=== PATIENT | female | born 1950 | race Caucasian/White ===

== ENCOUNTER → 2017-09-01 | Outpatient (CLI) | payer OTHER ==
[~2017-09-01] MED LIST: ADVIN25/60 INH; ALBUAER2 INH; CALC500C70 PO; CHOL20005 PO; PEDICHW50 PO; PROP10TA7 PO; SERT50TA PO; ZAFI1TAB10 PO
--- NOTE | 2017-09-02 05:22 | PAP/PSG TECHNICIAN REPORT ---
[facility] Frontend Engineer Polysomnogram Report Study name: None Report date: 09/02/2017 Study date: 09/01/2017 Referring Physician: SONA Salinas Name: ETHEL SEWELL Interpreting Physician: Hiren Abad M.D. Date of : 1950 Frontend Engineer: Vamshi Hopkins RPSGT. Sex: Female Age: 67 StudyType: PSG Weight: 136 lbs Height: 67 years, Height 5' 0" BMI: 26.56 Medications: CREON 3000, OXYGEN, ADVAIR DISKUS, BENTYL 10 MG, ACCOLATE 20 MG, VENTOLIN HFA 108 90 BASE, VITAMIN D Patient History PATIENT HAD A SLEEP STUDY DONE IN 2014 AND WAS POSITIVE FOR JARRED. SHE WAS PUT ON CPAP OF 7CWP AND HAS BEEN WEARING IT SINCE THEN. SHE RECENTLY LOST OVER 110LBS AND IS BEING TESTED TO SEE IF SHE STIL HAS JARRED. ES = 12 RM 7 Parameters Monitored NPSG: E1-M2, E2-M1, Fp1-M2, Fp2-M1, F3-M2, F4-M2, F4-M1, C3-M2, C4-M2, C4-M1, O1-M2, O2-M2, O2-M1, T3-M2, T4-M1, P3-M2, P4-M1, CHIN1, CHIN2, HR, EKG, Legs, PFLOW, SNOR, FLOW, CFLOW, Tidal Volume, THOR, ABDO, SpO2, PLTH, CPRESS, ETCO2 Wave, ETCO2, pH Sleep Architecture Sleep Stages Time at Lights Off 9:18:07 PM STAGES Time (min.) TST (%) Time at Lights On 5:01:07 AM Wake 39.0 -- Total Recording Time (TRT) 464.00 min. N1 20.0 5 Total Sleep Period (TSP) 456.0 min. N2 263.5 62 Total Sleep Time (TST) 424.0min. N3 70.0 17 Awake Time 39.0 min. REM 70.5 17 Wake after Sleep Onset 32.0 min. Sleep Efficiency (SE) 92 % Sleep Onset Latency (NUPUR) 7.0 min. Number of Stage 1 Shifts None Awakenings 14 Stage Changes 66 Number of REM periods 6 REM 70.5 17 REM Latency 52.0 min. NREM 353.5 83 Body Position Analysis Supine Right Left Side Prone Vertical Total Sleep Time (min.) 291.3 52.5 115.5 168.02 0.0 0.0 Total Sleep Time (%) 60% 12% 27% 40 0% N/A% Total Sleep Time REM (min.) 32.0 11.0 27.5 None 0.0 0.0 Total Sleep Time NREM (min.) 224.0 41.5 88.0 None 0.0 0.0 Intermittent Wake (min.) 35.3 1.0 2.7 None 0.0 0.0 Total Sleep Period (%) 62% None None None None None Arousals Myoclonus (PLM) * Events Count Index Events Count Index Spontaneous 38 5 Events Awake (PLMW) 13 20.0 Respiratory 3 0.4 Events Asleep w/ Arousal (PLMA) 1 0.1 PLM 1 0 Events Asleep w/o Arousal (PLMS) 15 2.1 Snoring 0 0 Total Asleep 16 2.3 Total 42 6 Total 29 4 Respiratory Analysis * CA OA MA CH H RERA Total Count 0 0 0 0 27 1 27 Index 0.0 0.0 0.0 0 3.8 0 4.0 Mean Duration 0.0 0.0 0.0 0.00 28.8 19.8 28.5 Longest Duration 0.0 0.0 0.0 0.00 0.0 19.8 57.4 Respiratory Event Summary Total Supine ~Supine Right Left Prone REM NREM Apneas Count 0 0 0 0 0 N/A 0 0 Index 0.0 0 0 0.0 0.0 N/A 0 0 Hypopneas (4% Desat) Count 27 16 11 0 11 N/A 25 2 Index 3.8 3.8 4 0.0 5.7 N/A 21.3 0.3 Apneas & All Hypopneas Count 27 16 11 0 11 N/A 25 2 Index 3.8 4 4 0 6 N/A 21.3 0.3 Respiratory Events (Aerial Advertiser+All Hyp+RERA) Count 27 17 11 0 11 N/A 25 2 Index 4.0 4 4 0.0 5.7 N/A 22.1 0.3 Respiratory Related Arousal Count 3 17 0 0 0 N/A 2 1 Index 0.4 1 0 0 0 N/A 2 0 Snoring Analysis Supine Right Left Prone REM NREM Total Snore duration 1.9 min Snores count 116 1 2 N/A 4 115 119 Snore mean duration 1.0 Sec Snores index 27 1 1 N/A 3.4 19.5 16.8 TST with snoring (%) 0.4% Desaturation Event Summary: Minimum %SpO2 Event Count Mean/Min/Max Duration(sec.) Desaturation Index % Time In Bed > 90 30 44.9 / 10.0 / 84.0 4.1 95.0 86 - 90 1 34.3 / 34.3 / 34.3 2.6 5.0 81 - 85 0 N/A 0.0 0.0 76 - 80 0 N/A 0.0 0.1 71 - 75 0 N/A 0.0 0.0 66 - 70 0 N/A 0.0 0.0 61 - 65 0 N/A 0.0 0.0 56 - 60 0 N/A 0.0 0.0 51 - 55 0 N/A 0.0 0.0 < 50 0 N/A 0.0 0.0 Total REM NREM Awake <50% 0.0 min. 0.0 min. 0.0 min. 0.0 min. 51 - 60% 0.0 min. 0.0 min. 0.0 min. 0.0 min. 61 - 70% 0.0 min. 0.0 min. 0.0 min. 0.0 min. 71 - 80% 0.3 min. 0.0 min. 0.0 min. 0.3 min. 81 - 90% 22.7 min. 20.4 min. 1.7 min. 0.6 min. 91 - 100% 433.7 min. 50.1 min. 351.8 min. 31.9 min. Average 93 92 93 95 Minimum SpO2 80 86 88 80 Desaturation Event Index 3.9 20.4 1.0 1.5 # Desat. Events below 89% 8 6 2 0 Time(%) with Saturation below 89% 1.0 0.9 0.0 0.1 Time(min.) with Saturation below 89% 4.6 4.2 0.0 0.3 Time (mins) REM (mins) NREM (mins) % of TST SpO2 Below 90% 26 24 N2 2.6 SpO2 Below 88% 6 0 0 0 Heart Rate Analysis Min (bpm) Max (bpm) Average (bpm) Awake 47 88 56 NREM 47 81 56 REM 49 74 57 Overall 47 81 56 Supplemental O2 Values Minimum O2 level: None Value Start Time End Time Frontend Engineer Comments Mrs. Sewell slept in the right, left amd supine positions. PAC's noted. Irregular EKG noted at times. Leg movements noted. No bruxism noted. Snoring was noted and scored as a 1 on a scale of 1 through 5. (0=no snoring, 5=snoring loud enough to be heard through a closed door or down the [address] way) Mrs. Sewell awoke to use the restroom 1 time during the night. Mrs. Sewell stated I did not sleep as well as I do when I am in my own bed. The final report will be interpreted and signed by a sleep physician. The completed physician report will then be placed in the patient medical record. Therapy (cm H2O) 0 TIB (min.) 463.0 TST (min.) 424.0 Sleep Onset (min.) 7.0 REM Onset From Sleep (min.) 52.0 Sleep Efficiency % 92 Wakefulness (%) 8 Wakefulness (min.) 39.0 NREM 1 (%) 5 NREM 1 (min.) 20.0 NREM 2 (%) 62 NREM 2 (min.) 263.5 NREM 3 (%) 17 NREM 3 (min.) 70.0 REM (%) 17 REM (min.) 70.5 # Arousals 42 Arousal Index 6 # Snore 119 Snore Index 16.8 AHI 3.8 AHI Supine 4 AHI Non-Supine 4 NREM AHI 0.3 REM AHI 21.3 RDI 4.0 # Obstructive Apnea 0 # Central Apnea 0 # Mixed Apnea 0 # Hypopneas 27 RERAs 1 Total Respiratory Events 30 Time Below SpO2 89% (min.) 4.2 Mean NREM SpO2 (%) 93 Mean REM SpO2 (%) 92 Mean Sleep SpO2 (%) 92 Min NREM SpO2 (%) 88 Min REM SpO2 (%) 86 Position Supine (min.) 291.3 Position Non-supine (min.) 168.0 LM Index Sleep 2.3 LM Index NREM 1.9 LM Index REM 4.3 Mean Heart Rate (bpm) 56 Min Heart Rate (bpm) 47
--- NOTE | 2017-09-02 16:34 | POLYSOMNOGRAPH REPORT ---
CLINICAL DATA: 67-year-old female with a BMI of 25.56 referred by SONA Matamoros for reevaluation of sleep apnea. She had sleep apnea diagnosed in 2015 and was put on CPAP. She had gastric bypass surgery and lost over 110 pounds. Her [place] sleepiness score is 12/24. SLEEP ARCHITECTURE: Total sleep period was 456 minutes. Total sleep time was 424 minutes divided between 353.5 minutes of non-REM sleep and 70.5 minutes of REM sleep. Sleep onset latency was 7 minutes. REM latency was 52 minutes. Sleep efficiency was 92%. Wake after sleep onset was 32 minutes. Sleep consisted of stage N1 5%, stage N2 62%, stage N3 17%, and REM 17%. AROUSAL DATA: 42 arousals were recorded for an index of 6 per hour. PLM DATA: 16 limb movements during sleep were noted for an index of 2.3 per hour with arousal index of 0.1 per hour. RESPIRATORY DATA: There was no evidence of clinically significant sleep apnea seen. The AHI was 3.8. There were 27 hypopneic episodes. The mean duration of hypopnea was 28.8 seconds. OXIMETRY DATA: Very transient nocturnal hypoxemia was seen. Oxygen vish was 86% during REM. The mean saturation was 93%. Time below 88% was 6 minutes. EKG: Heart rates ranged from 47-81 beats per minute. PACs were noted. CNC MAINTENANCE TECHNICIAN'S COMMENTS: The patient slept in the right, left, and supine positions. Snoring was mild rated 1 on a scale of 1-5. IMPRESSION: No evidence of clinically significant sleep apnea/hypopnea or sustained nocturnal hypoxemia. RECOMMENDATIONS: The patient should continue with weight loss and good sleep hygiene. There is nothing to suggest that CPAP is needed at this time. [facility]
== END | disposition home or self-care (01) ==
LOC: C.NEUR 20:00
PROVIDERS: ATTEND Nurse Practitioner Family
DX: G47.33 Obstructive sleep apnea (adult) (pediatric) (principal); G47.10 Hypersomnia, unspecified; G47.34 Idiopathic sleep related nonobstructive alveolar hypoventilation

== ENCOUNTER 2020-04-21 08:52 | Inpatient (IN) ==
--- NOTE | 2020-04-21 09:22 | History & Physical Report ---
Date of Service April 21, 2020 Assessment & Plan (1) PAF (paroxysmal atrial fibrillation): (2) Acute on chronic diastolic (congestive) heart failure: 69-year-old female admitted for titration of sotalol and external direct-current cardioversion. Increase sotalol to 120 mg twice daily. She will receive 4 doses with plan for cardioversion 04/23/2020. INR has been therapeutic. Repeat baseline lab studies including BMP, Mg, CBC, and INR. Daily ECG. Continue telemetry monitoring during hospitalization. History of Present Illness Chief Complaint: Fatigue, dyspnea on exertion, paroxysmal atrial fibrillation Primary Care Provider: Dustin Maciel MD 69-year-old female recently evaluated in the cardiology clinic 04/14/2020 regarding recurrent atrial fibrillation recorded on pacemaker interrogation. 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 Patient reverted to atrial fibrillation on April 01. Worsening dyspnea on exertion, fatigue, and progressive lower extremity edema. Patient instructed to take 80 mg of Lasix for 1 day during recent office visit due to worsening edema. Reports feeling played out while at work. No lightheadedness, dizziness, syncope, or near syncope. Denies signs/symptoms of GI/ blood loss. No focal weakness, headaches, slurred speech, dysphagia, visual changes, paresthesias, or gait instability. Edema unchanged today. Denies orthopnea or paroxysmal nocturnal dyspnea. Offers no other concerns/complaints this time. Allergies Allergy/AdvReac Type Severity Reaction Status Date / Time oxycodone AdvReac Intermediate GI SYMPTOMS Verified 07/20/18 11:48 Home Medications Home Medications Medication Instructions Recorded Confirmed Type Creon 2 tab PO TID 07/20/18 10/23/18 History albuterol sulfate [Ventolin HFA] 1 - 2 puff INHALATION QID PRN 07/20/18 10/23/18 History cholecalciferol (vitamin D3) 2,000 unit PO DAILY 07/20/18 10/23/18 History [Vitamin D3] fluticasone propion-salmeterol 1 inh INHALATION BID 07/20/18 10/23/18 History [Advair Diskus] pedi multivit no.7-folic acid 1 tab PO DAILY 07/20/18 10/23/18 History [Flintstones Tab Chew] sertraline [Zoloft] 50 mg PO DAILY 07/20/18 10/23/18 History warfarin 2.5 mg PO DAILY 07/20/18 10/23/18 History furosemide 20 mg PO 3XWK 10/23/18 10/23/18 History sotalol 80 mg PO BID #0 tab 10/29/18 Rx Past Med/Surg History Medical History A-fib Asthma (Chronic) Bronchitis (Acute) Chest pain (Acute) COPD (chronic obstructive pulmonary disease) DJD (degenerative joint disease) (Chronic) Dyspnea (Acute) GERD (gastroesophageal reflux disease) Hyperlipidemia (Chronic) Pacemaker Tachy-corin syndrome s/p pacemaker insertion Tremor Surgical History H/O colonoscopy H/O gastric bypass H/O hernia repair H/O ventral hernia repair History of cholecystectomy S/P appendectomy S/P small bowel resection Family History Other Cancer Hypertension Lung disease Social History Preferred Language: Finnish Communication Ability: Effective Nurse Coordinator Required: No Beliefs That Will Affect Care: None Current Living Situation: Spouse current occupational status: employed Other Information That Helps Us Care for You: No Feels Safe at Home: Yes Safety Concerns: Feels Safe At This Time Smoking Status: Never smoker Second Hand Exposure: No ; Hx Alcohol Use: No Hx Substance Use: No Review of Systems Review of Systems: All systems reviewed & are unremarkable except as noted in HPI & below Physical Exam Physical Exam: General: NAD, AAO x3, well nourished. HEENT: Poor dentition. Normocephalic. Atraumatic. Conjunctiva pink, no scleral icterus. No carotid bruits, the carotid upstrokes are brisk. No JVD. No HJR Heart: Irregular rhythm, normal S-1 and S-2. No murmurs or rubs appreciated. PMI is not displaced. No RV heave. Lungs: Clear bilateral without rales , rhonchi, or wheeze. Abdomen: Normal bowel sounds. Soft. Nontender. No masses or organomegaly. No abdominal bruits. Extremities: 2+ bilateral pedal and ankle edema. +B/L varicose veins. Pulses: radial=2/4, Dorsalis pedis =2/4, posterior tibial=2/4. Neuro: No focal deficits.
--- OUTSIDE RECORDS SUMMARY | 2020-04-21 10:04 | External Medical Summary | Continuity of Care Document ---
:1950 Author Name Manuel Bello Address Unavailable Unavailable , Care Team Providers Name Role Phone John Abad M.D. Unavailable [email or web address] Tonny Maciel Unavailable Unavailable Problems Active medical history not documented Allergies and Adverse Reactions Allergy history not documented Medications Medications not documented Procedures Procedures not documented Immunizations Immunizations not documented Plan of Treatment Planned Observations Planned Goals not documented Results No Known Results Results not documented
[2020-04-21 11:00] LABS: Basophils # (auto) 0.03 K/uL (0-0.2); Basophils % (auto) 0.3 %; Eosinophils # (auto) 0.25 K/uL (0-0.5); Eosinophils % (auto) 2.6 %; Hematocrit (blood only) 29.5 % (37-47); Hemoglobin 9.4 g/dL (12.0-16.0); Immature Granulocytes # (auto) 0.02 K/uL (0.00-0.02); Immature Granulocytes % (auto) 0.2 %; Lymphocytes # (auto) 1.69 K/uL (1.2-3.4); Lymphocytes % (auto) 17.6 %; Mean Corpuscular Hemoglobin 29.4 pg (25-34); Mean Corpuscular Hgb Conc 31.9 g/dL (32-36); Mean Corpuscular Volume 92.2 fL (80-100); Mean Platelet Volume 9.8 fL (7.4-10.4); Monocytes # (auto) 0.54 K/uL (0.11-0.59); Monocytes % (auto) 5.6 %; Neutrophils # (auto) 7.07 K/uL (1.4-6.5); Neutrophils % (auto) 73.7 %; Platelet Count 296 K/uL (130-400); RDW Coefficient of Variation 16.4 % (11.5-14.5); RDW Standard Deviation 54.5 fL (36.4-46.3)
[2020-04-21] MEDS: SOTALOL HCL 80 MG TAB PO SCH ×2 (11:00→21:42)
[2020-04-21 11:26] LABS: INR 5.5 (0.9-1.1); Prothrombin Time 53.2 Seconds (9.0-12.0)
[2020-04-21 11:28] LABS: Albumin Level 2.7 gm/dl (3.4-5.0); BUN Creatinine Ratio 32.8 (10-20); Calcium 7.7 mg/dl (8.5-10.1); Creatinine Clr Calc Pharmacy 69.6 ml/min; Est GFR (African American) 106.5; Est GFR (Non-African American) 91.9; Potassium 4.1 mmol/L (3.5-5.1)
[2020-04-21] MEDS ORDERED: ALBUTEROL HFA 8 GM INHALER INH PRN (11:29)
[2020-04-21 11:31] LABS: Albumin Globulin Ratio 0.9 (0.9-2); Bilirubin,Total 0.8 mg/dl (0.2-1); Total Protein 5.7 gm/dl (6.4-8.2)
--- NOTE | 2020-04-21 12:52 | Ultrasound Report ---
BILATERAL LOWER EXTREMITY VENOUS DOPPLER CLINICAL HISTORY: asymmetric edema, L>R COMPARISON STUDY: Right lower extremity venous Doppler ultrasound March 18, 2015. TECHNIQUE: Sonography of the deep venous system of the bilateral lower extremities was performed. Co mpression and augmentation were evaluated. FINDINGS: The bilateral common femoral, superficial femoral and popliteal veins were compressible. A ugmentation was normal. Flow was shown within the deep calf vessels. IMPRESSION: No evidence of deep venous thrombus within the bilateral lower extremities. ACT 112: Negative or not required by law. Electronically signed by: Salomon Amezcua M.D. 04/21/2020 12:51 PM
--- NOTE | 2020-04-21 13:30 | XRay Report ---
XR chest 1V portable CLINICAL HISTORY: CHF dyspnea COMPARISON STUDY: 10/25/2018 FINDINGS: Lungs are clear. Mild cardiomegaly. Permanent bipolar cardiac pacer. These are in good posi tion. IMPRESSION: No acute process. ACT 112: Negative or not required by law. The above report was generated using voice recognition software. It may contain grammatical, syntax or spelling errors. Electronically signed by: Saad Maldonado M.D. 04/21/2020 1:28 PM
[2020-04-21] MEDS ORDERED: WARFARIN SOD 2.5 MG TAB PO SCH (16:00)
--- NOTE | 2020-04-22 06:22 | Electrocardiogram Report ---
Test Reason : Blood Pressure : / mmHG Vent. Rate : 081 BPM Atrial Rate : 061 BPM P-R Int : 000 ms QRS Dur : 090 ms QT Int : 378 ms P-R-T Axes : 000 -30 -04 degrees QTc Int : 439 ms Atrial fibrillation Left axis deviation Low voltage QRS Septal infarct (cited on or before 29-OCT-2018) Nonspecific T wave abnormality Abnormal ECG When compared with ECG of 29-OCT-2018 06:55, Atrial fibrillation has replaced Electronic atrial pacemaker Confirmed by Seven Houser ([id number]) on 04/22/2020 6:22:15 AM Referred By: Tejas Haskins Confirmed By:Seven Houser
[2020-04-22 06:31] LABS: INR 4.4 (0.9-1.1)
--- NOTE | 2020-04-22 06:35 | Electrocardiogram Report ---
Test Reason : Blood Pressure : / mmHG Vent. Rate : 081 BPM Atrial Rate : 091 BPM P-R Int : 000 ms QRS Dur : 092 ms QT Int : 398 ms P-R-T Axes : 000 -37 -15 degrees QTc Int : 462 ms Atrial fibrillation Left axis deviation Low voltage QRS Septal infarct Nonspecific T wave abnormality Abnormal ECG When compared with ECG of 21-APR-2020 10:39, No significant change Confirmed by Seven Houser ([id number]) on 04/22/2020 6:35:38 AM Referred By: Tejas Haskins Confirmed By:Seven Houser
[2020-04-22] MEDS: SOTALOL HCL 80 MG TAB PO SCH ×2 (08:37→21:09)
[2020-04-22] MEDS: FERROUS FUMARATE/ASCORBIC ACID 65 MG CAPCR PO SCH (08:37)
[2020-04-22] MEDS: SERTRALINE HCL 50 MG TABLET PO SCH (08:38)
[2020-04-22] MEDS: MAGNESIUM OXIDE 400 MG TAB PO SCH (08:38)
[2020-04-22] MEDS: FLUTICASONE/VILANTEROL 100/25MCG 14 PUFFS/INHALER INH SCH (08:41)
--- NOTE | 2020-04-22 11:23 | Cardiology Progress Note ---
Date of Service April 22, 2020 Assessment & Plan (1) PAF (paroxysmal atrial fibrillation): (2) Acute on chronic diastolic (congestive) heart failure: Continue sotalol loading, 120 mg twice daily. Repeat ECG in a.m. INR remains supratherapeutic, 4.4 today. Hold Coumadin with repeat INR in a.m. Proceed with external direct-current cardioversion in a.m. [employer] electro mechanical solar technician will be present for pacemaker interrogation post cardioversion. Subjective Patient seen and examined the bedside. Telemetry demonstrates rate controlled atrial fibrillation with occasional demand ventricular pacing. Lower extremity edema has improved. No orthopnea or paroxysmal nocturnal dyspnea. Denies palpitations, lightheadedness, dizziness, syncope, or near syncope. Tolerating diet and medications. Repeat ECG demonstrates normal QT interval. Review of Systems Review of Systems: All systems reviewed & are unremarkable except as noted in HPI & below Physical Exam Constitutional: well developed and well nourished; no acute distress Respiratory: normal respiratory effort, lungs clear to auscultation Auscultation: no crackles, no rales, no rhonchi and no wheezes Cardiovascular: Rate/Rhythm: + irregularly irregular Heart Sounds: normal S1 and normal S2; no murmur Vessels: no JVD Extremities: + edema (Trace to mild bilateral pedal edema) Gastrointestinal (Abdomen): Inspection/Auscultation: abdomen normal to inspection and normal bowel sounds; abdomen not distended Percussion/Palpation: abdomen soft; abdomen nontender, no guarding and abdomen not rigid Musculoskeletal: Extremities: no cyanosis and no clubbing Skin: no rashes, warm and dry Neurologic: CN's II-XI intact bilaterally and moves all extremities; no focal motor deficits Speech / Cognition: normal speech Motor/Sensory: no tremor Psychiatric: A+Ox3, euthymic affect Results & Data Vital Signs (Past 12 Hours) Vital Signs Temp Pulse Resp BP Pulse Ox 04/22/20 07:38 36.8 C 75 20 118/80 100 04/22/20 03:01 36.5 C 95 H 18 115/68 98 04/21/20 23:20 36.6 C 82 18 103/65 98
--- NOTE | 2020-04-22 12:19 | Anesthesiology Consultation ---
Date of Service April 22, 2020 Assessment & Plan (1) Encounter for pre-operative examination: Chart Review Chart Review: dividend deposit entry clerk initiated History Surgery Operation Date: 04/23/20 07:30 Proposed Procedures p Cardioversion Steam Crane Operator w/Carlos - Tejas Haskins DO Height/Weight Height: 5 ft Weight: 60.8 kg Allergies Allergy/AdvReac Type Severity Reaction Status Date / Time oxycodone AdvReac Intermediate GI SYMPTOMS Verified 07/20/18 11:48 Medications Home Medications Medication Instructions Recorded Confirmed Last Taken Creon 2 tab PO TID 07/20/18 10/23/18 Unknown albuterol sulfate [Ventolin HFA] 1 - 2 puff INHALATION QID PRN 07/20/18 10/23/18 Unknown cholecalciferol (vitamin D3) 2,000 unit PO DAILY 07/20/18 10/23/18 Unknown [Vitamin D3] fluticasone propion-salmeterol 1 inh INHALATION BID 07/20/18 10/23/18 Unknown [Advair Diskus] pedi multivit no.7-folic acid 1 tab PO DAILY 07/20/18 10/23/18 Unknown [Flintstones Tab Chew] sertraline [Zoloft] 50 mg PO DAILY 07/20/18 10/23/18 Unknown warfarin 2.5 mg PO DAILY 07/20/18 10/23/18 Unknown furosemide 20 mg PO 3XWK 10/23/18 10/23/18 Unknown sotalol 80 mg PO BID #0 tab 10/29/18 Unknown Active Medications Generic Name Dose Route Start Last Admin Trade Name Freq PRN Reason Stop Dose Admin Docusate Sodium/Ferrous Fumarate 65 mg 04/22/20 09:00 04/22/20 08:37 Gwen-Sequels PO 05/22/20 08:59 65 mg QAM ISHAN Administration Fluticasone/Vilanterol 1 puffs 04/22/20 09:00 04/22/20 08:41 Breo Ellipta 100/25 Mcg Inh INH 05/22/20 08:59 1 puffs DAILY ISHAN Administration Magnesium Oxide 400 mg 04/22/20 09:00 04/22/20 08:38 Mag-Ox PO 05/22/20 08:59 400 mg QAM ISHAN Administration Sertraline HCl 50 mg 04/22/20 09:00 04/22/20 08:38 Zoloft PO 05/22/20 08:59 50 mg QAM ISHAN Administration Sotalol HCl 120 mg 04/21/20 10:30 04/22/20 08:37 Betapace PO 05/21/20 10:29 120 mg BID SIHAN Administration Past Medical History Medical History A-fib Asthma (Chronic) Bronchitis (Acute) Chest pain (Acute) COPD (chronic obstructive pulmonary disease) DJD (degenerative joint disease) (Chronic) Dyspnea (Acute) GERD (gastroesophageal reflux disease) Hyperlipidemia (Chronic) Pacemaker Tachy-corin syndrome s/p pacemaker insertion Tremor Past Family History Family History Other Cancer Hypertension Lung disease Past Surgical History Surgical History H/O colonoscopy H/O gastric bypass H/O hernia repair H/O ventral hernia repair History of cholecystectomy S/P appendectomy S/P small bowel resection Social History Smoking Status: Never smoker Hx Alcohol Use: No Hx Substance Use: No Physical Exam Vital Signs Last Vital Signs Temp 98.4 F 04/22/20 11:30 Pulse 76 04/22/20 11:30 Resp 18 04/22/20 11:30 BP 117/73 04/22/20 11:30 Pulse Ox 97 04/22/20 11:30 Testing Laboratory Results 04/21/20 10:47 04/21/20 10:47 PT 43.0 Seconds (9.0-12.0) H 04/22/20 05:40 INR 4.4 (0.9-1.1) H 04/22/20 05:40 Electrocardiogram Date: 04/22/20 Atrial fibrillation with occasional ventricular-paced complexes, 83 bpm Left axis deviation Septal infarct , age undetermined Abnormal ECG When compared with ECG of 21-APR-2020 14:32, Electronic ventricular pacemaker has replaced Atrial fibrillation Chest X-Ray Date: 04/21/20 Findings: + NAD Echocardiogram Date: 10/26/18 LV systolic function is normal LA/RA size is normal AV is normal in structure and function Trace MR
--- NOTE | 2020-04-23 06:40 | Electrocardiogram Report ---
Test Reason : Blood Pressure : / mmHG Vent. Rate : 083 BPM Atrial Rate : 000 BPM P-R Int : 000 ms QRS Dur : 090 ms QT Int : 384 ms P-R-T Axes : 000 -33 -28 degrees QTc Int : 451 ms Atrial fibrillation with occasional ventricular-paced complexes Left axis deviation Possible Septal infarct , age undetermined Nonspecific T wave abnormality Abnormal ECG When compared with ECG of 21-APR-2020 14:32, Ventricular pacing is now intermittently present Confirmed by Seven Houser ([id number]) on 04/23/2020 6:40:21 AM Referred By: Tejas Haskins Confirmed By:Seven Houser
[2020-04-23 06:42] LABS: INR 2.1 (0.9-1.1); Prothrombin Time 21.4 Seconds (9.0-12.0)
[2020-04-23] MEDS ORDERED: PROPOFOL IV EMULSION 10 MG/ML 20 ML VIAL IV ONE (07:19)
[2020-04-23] MEDS: FERROUS FUMARATE/ASCORBIC ACID 65 MG CAPCR PO SCH (08:26)
[2020-04-23] MEDS: SERTRALINE HCL 50 MG TABLET PO SCH (08:26)
[2020-04-23] MEDS: FLUTICASONE/VILANTEROL 100/25MCG 14 PUFFS/INHALER INH SCH (08:26)
[2020-04-23] MEDS: SOTALOL HCL 80 MG TAB PO SCH (08:26)
--- NOTE | 2020-04-23 08:26 | Anesthesiology Progress Note ---
Date of Service April 23, 2020 Anesthesia Post Procedure Vital Signs Vital Signs: Temp Pulse Pulse Resp BP BP Pulse Ox 04/23/20 08:05 78 16 105/71 98 04/23/20 07:55 80 16 103/67 97 04/23/20 07:40 64 16 106/63 99 04/23/20 07:06 98.2 F 73 16 104/67 97 04/23/20 03:57 97.9 F 80 18 113/60 95 04/23/20 00:26 77 04/22/20 23:36 98.2 F 75 20 104/69 95 04/22/20 19:50 98.1 F 66 12 94/56 L 95 04/22/20 15:19 98.4 F 78 12 89/61 L 96 04/22/20 11:30 98.4 F 76 18 117/73 97 Transfer of Care Handoff Completed per policy Notes Mental Status: alert / awake / arousable and participated in evaluation Patient Amnestic to Procedure: Yes Nausea / Vomiting: adequately controlled Pain: adequately controlled Airway Patency, RR, SpO2: stable & adequate BP & HR: stable & adequate Hydration State: stable & adequate Anesthetic Complications: no major complications apparent and Pt Satisfied with anesthetic care
[2020-04-23] MEDS ORDERED: WARFARIN SOD 5 MG TAB PO ONE (08:37)
--- NOTE | 2020-04-23 10:13 | Cardiology Progress Note ---
Date of Service April 23, 2020 Assessment & Plan (1) PAF (paroxysmal atrial fibrillation): (2) Acute on chronic diastolic (congestive) heart failure: Continue sotalol 120 mg twice daily. Repeat ECG at 10:30 AM If QTc remains within normal range, plan discharge this afternoon. Restart Coumadin, 5 mg x 1 now then resume previous schedule. Anticoagulation clinic follow-up in 1 week. Pacemaker reprogrammed. Antitachycardia pacing therapies activated. Prefer- pacing mode activated to maintain heart rate via atrial pacing above her baseline sinus rate. Subjective Patient seen and examined at the bedside. External direct-current cardioversion performed this a.m. without complication. She remains in sinus rhythm and atrial paced on telemetry. Denies chest pain or shortness of breath. Lower extremity edema markedly improved with bed rest. Tolerating current medications. No signs/symptoms of GI/ blood loss. INR 2.1 this morning. Review of Systems Review of Systems: All systems reviewed & are unremarkable except as noted in HPI & below Physical Exam Constitutional: well developed and well nourished; no acute distress Respiratory: normal respiratory effort, lungs clear to auscultation Auscultation: no crackles, no rales, no rhonchi and no wheezes Cardiovascular: Rate/Rhythm: regular rhythm Heart Sounds: normal S1 and normal S2; no gallop, no murmur and no cardiac rub Vessels: no JVD Extremities: + edema (Trace bilateral pedal edema) Gastrointestinal (Abdomen): Inspection/Auscultation: abdomen normal to inspection and normal bowel sounds; abdomen not distended Percussion/Palpation: abdomen soft; abdomen nontender, no guarding and abdomen not rigid Musculoskeletal: Extremities: no cyanosis and no clubbing Skin: no rashes, warm and dry Neurologic: CN's II-XI intact bilaterally and moves all extremities; no focal motor deficits Speech / Cognition: normal speech Motor/Sensory: no tremor Psychiatric: A+Ox3, euthymic affect Results & Data Vital Signs (Past 12 Hours) Vital Signs Temp Pulse Pulse Resp BP BP Pulse Ox 04/23/20 08:29 36.8 C 65 18 98/64 L 95 04/23/20 08:05 78 16 105/71 98 04/23/20 07:55 80 16 103/67 97 04/23/20 07:40 64 16 106/63 99 04/23/20 07:06 36.8 C 73 16 104/67 97 04/23/20 03:57 36.6 C 80 18 113/60 95 04/23/20 00:26 77 04/22/20 23:36 36.8 C 75 20 104/69 95
[2020-04-23] MEDS: MAGNESIUM OXIDE 400 MG TAB PO SCH (10:53)
--- NOTE | 2020-04-23 11:55 | Cardioversion ---
Date of Service April 23, 2020 Electrical Cardioversion Rpt Electrical Cardioversion Report Procedure: External direct-current cardioversion. Indication: Paroxysmal atrial fibrillation. Complications: None. Sedation: Conscious sedation provided by the anesthesia service. Please see se langley report. Procedural summary: Patient was brought to the cardiac catheterization holding area in a fasting state. Atrial fibrillation confirmed via pacemaker interrogation. External defibrillator pads were placed in anterior and posterior position. Conscious sedation provided by the anesthesia service with propofol. The defibrillator was synced to the QRS complex. When adequate sedation achieved, the defibrillator was charged to 200 J. A single 200 J shock was delivered. Patient successfully converted from atrial fibrillation to sinus rhythm and atrial pacing. No focal neurologic deficits post procedure. Pacemaker programmed to "preferred pacing" setting and antitachycardia pacing settings activated. Conclusion: Successful external direct-current cardioversion from atrial f ibrillation to sinus rhythm. No complications. Recommendations: Continue sotalol 120 mg twice daily. Continue long-term anticoagulation with Coumadin for goal INR of 2.0-3.0. Pacemaker interrogations every 3 months via the [facility] heart rhythm device clinic.
--- NOTE | 2020-04-24 05:42 | Electrocardiogram Report ---
Test Reason : Blood Pressure : / mmHG Vent. Rate : 073 BPM Atrial Rate : 072 BPM P-R Int : 260 ms QRS Dur : 094 ms QT Int : 412 ms P-R-T Axes : 000 -38 -12 degrees QTc Int : 453 ms Atrial-paced rhythm with prolonged AV conduction Left axis deviation Nonspecific T wave abnormality Cannot rule out Septal infarct Abnormal ECG When compared with ECG of 22-APR-2020 09:27, Atrial pacing has replaced atrial fibrillation Confirmed by Seven Houser ([id number]) on 04/24/2020 5:42:04 AM Referred By: Tejas Haskins Confirmed By:Seven Houser
--- NOTE | 2020-04-24 05:58 | Electrocardiogram Report ---
Test Reason : Blood Pressure : / mmHG Vent. Rate : 075 BPM Atrial Rate : 075 BPM P-R Int : 270 ms QRS Dur : 094 ms QT Int : 418 ms P-R-T Axes : 000 -29 -25 degrees QTc Int : 466 ms Atrial-paced rhythm with prolonged AV conduction T wave abnormality, consider anterior ischemia Abnormal ECG When compared with ECG of 23-APR-2020 07:46, T wave inversion more evident in Anterior leads Confirmed by Seven Houser ([id number]) on 04/24/2020 5:57:34 AM Referred By: Tejas Haskins Confirmed By:Seven Houser
[2020-04-24] MEDS ORDERED: FERROUS FUMARATE/ASCORBIC ACID 65 MG CAPCR PO SCH (09:00)
[2020-04-24] MEDS ORDERED: FUROSEMIDE 20 MG TAB PO SCH (09:00)
[2020-04-24] MEDS ORDERED: WARFARIN SOD 2.5 MG TAB PO SCH (16:00)
--- NOTE | 2020-05-06 16:55 | Discharge Summary ---
"Date of Service May 06, 2020 Admission HPI Per Admitting Provider 69-year-old female recently evaluated in the cardiology clinic 04/14/2020 regarding recurrent atrial fibrillation recorded on pacemaker interrogation. 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 Patient reverted to atrial fibrillation on April 01. Worsening dyspnea on exertion, fatigue, and progressive lower extremity edema. Patient instructed to take 80 mg of Lasix for 1 day during recent office visit due to worsening edema. Reports feeling played out while at work. No lightheadedness, dizziness, syncope, or near syncope. Denies signs/symptoms of GI/ blood loss. No focal weakness, headaches, slurred speech, dysphagia, visual changes, paresthesias, or gait instability. Edema unchanged today. Denies orthopnea or paroxysmal nocturnal dyspnea. Offers no other concerns/complaints this time. Principal Diagnosis atrial fibrillation Discharge Exam Constitutional well developed and well nourished; no acute distress Respiratory normal respiratory effort, lungs clear to auscultation Auscultation: no crackles, no rales, no rhonchi and no wheezes Cardiovascular Rate/Rhythm: regular rhythm Heart Sounds: normal S1 and normal S2; no gallop, no murmur and no cardiac rub Vessels: no JVD Extremities: + edema (Trace bilateral pedal edema) Gastrointestinal (Abdomen) Inspection/Auscultation: abdomen normal to inspection and normal bowel sounds; abdomen not distended Percussion/Palpation: abdomen soft; abdomen nontender, no guarding and abdomen not rigid Musculoskeletal Extremities: no cyanosis and no clubbing Skin no rashes, warm and dry Neurologic CN's II-XI intact bilaterally and moves all extremities; no focal motor deficits Speech / Cognition: normal speech Motor/Sensory: no tremor Psychiatric A+Ox3, euthymic affect Discharge Data Allergies Allergy/AdvReac Type Severity Reaction Status Date / Time oxycodone AdvReac Intermediate GI SYMPTOMS Verified 07/20/18 11:48 Consultations 04/22/20 08:10 Consult Anesthesiology Routine Procedures Performed Operation Date: 04/23/20 07:30 Actual Procedures p Cardioversion - Tejas Haskins DO Ordered Studies 04/21/20 10:35 US venous doppler LE BI Routine Hospital Course (1) PAF (paroxysmal atrial fibrillation): (2) Acute on chronic diastolic (congestive) heart failure: Continue sotalol 120 mg twice daily. Repeat ECG at 10:30 AM If QTc remains within normal range, plan discharge this afternoon. Restart Coumadin, 5 mg x 1 now then resume previous schedule. Anticoagulation clinic follow-up in 1 week. Pacemaker reprogrammed. Antitachycardia pacing therapies activated. Prefer- pacing mode activated to maintain heart rate via atrial pacing above her baseline sinus rate. Total Time Total Time Spent Total Time Spent (In Minutes): 30 Discharge Plan Discharge Items Patient Disposition: Home - Self-Care Reason For Visit: PAROXYSMAL AFIB Discharge Diagnosis: atrial fibrillation status post cardioversion Activity: Resume your previous activity Non-emergency contact: Paperhanger Pipe Call non-emergency contact if: you have any medication questions and your symptoms worsen Follow-up/Referrals: Dustin Maciel MD [Primary Care Provider] - Diet: Low Sodium (2gm) Addtl Attending Provider Instructions: ACTIVITY RECOMMENDATIONS: Resume activities as tolerated with no limitations unless specified. _x_ No lifting over 10 pounds for 24 hours. _x_ Do not engage in vigorous exercise, sexual activity, or sports for 24 hours. _x_ Do not drive or operate any motorized equipment for 24 hours. _x_ You may return to work/school tomorrow. Pending Studies at Discharge: No Stand-Alone Forms: [facility] | [employer], Smoking Cessation Medications and DC Order Prescriptions: New sotalol 80 mg Tablet 120 mg PO BID Qty: 90 RF: 4 magnesium oxide 400 mg (241.3 mg magnesium) Tablet 400 mg PO QAM Qty: 34 RF: 0 furosemide 20 mg Tablet 20 mg PO QAM Qty: 34 RF: 0 Gwen-Sequels (iron-vit c) 200 mg (65 mg iron)-25 mg Tablet Extended Release 65 mg PO QAM Qty: 34 RF: 0 Zafirlukast 20 mg PO DAILY 30 Days Qty: 30 RF: 4 Continued fluticasone propion-salmeterol [Advair Diskus] 250-50 mcg/dose Blister With Device 1 inh INHALATION BID RF: 0 warfarin 2.5 mg Tablet 2.5 mg PO DAILY RF: 0 albuterol sulfate [Ventolin HFA] 90 mcg/actuation Hfa Aerosol Inhaler 1 - 2 puff INHALATION QID PRN (Reason: Shortness Of Breath Or Wheezing) RF: 0 sertraline [Zoloft] 50 mg Tablet 50 mg PO DAILY RF: 0 pedi multivit no.7-folic acid [Flintstones Tab Chew] 100 mcg Tablet,Chewable 1 tab PO DAILY RF: 0 cholecalciferol (vitamin D3) [Vitamin D3] 2,000 unit Capsule 2,000 unit PO DAILY RF: 0 Discontinued Creon 2 tab PO TID RF: 0 furosemide 20 mg PO 3XWK RF: 0 sotalol 80 mg Tablet 80 mg PO BID Qty: 0 RF: 0 Discharge Orders: Discharge Order (Routine); Ordered 04/23/20 Ordered By: Tejas Haskins Admission Data Admit Date/Time: 04/21/20 09:57 Attending Provider: Tejas Haskins Admit Provider: Tejas Haskins Primary Care Provider: Dustin Maciel Other Providers: Akash Hernandez Other Interventions: Discharge Summary Assessment (RN) Last Done: 04/23/20 12:35 DC Date/Time DO NOT enter until pt leaves facility: 04/23/20 13:10"
== END 2020-04-23 13:10 | disposition home or self-care (01) | DRG 308 ==
LOC: 1E 09:57 → 2E 15:16
DX: Z79.01 Long term (current) use of anticoagulants; I50.33 Acute on chronic diastolic (congestive) heart failure; Z79.51 Long term (current) use of inhaled steroids; Z86.79 Personal history of other diseases of the circulatory system; Z79.899 Other long term (current) drug therapy; Z82.49 Family history of ischemic heart disease and other diseases of the circulatory system; Z88.5 Allergy status to narcotic agent; Z95.0 Presence of cardiac pacemaker; I48.0 Paroxysmal atrial fibrillation

== ENCOUNTER 2021-02-11 09:57 | Inpatient (IN) ==
--- NOTE | 2021-02-11 10:33 | Emergency Department Note ---
ED Visit Note I, Dustin Dsouza, DO PGY-3, participated in the care of this patient under the direct supervision of attending ED physician. . Resident Activity Tracking Resident Involvement: Resident Care Provided Care Provided: Adult ED
--- NOTE | 2021-02-11 10:51 | XRay Report ---
XR chest 1V portable HISTORY: 70 years-old Female SOB acute shortness of breath COMPARISON: Chest radiograph 01/08/2021, CT chest 12/25/2020 TECHNIQUE: Portable AP view of the chest FINDINGS: Cardiac mediastinal and hilar silhouettes are within normal limits. Left subclavian pacer. No pneumot horax, pleural effusion, airspace consolidation or overt pulmonary edema. Bones of the chest appear g rossly intact. Cholecystectomy. IMPRESSION: No acute process. ACT 112: Negative or not required by law. The above report was generated using voice recognition software. It may contain grammatical, syntax o r spelling errors. Electronically signed by: Corwin Bejarano M.D. 02/11/2021 10:50 AM
[2021-02-11 11:19] LABS: Basophils # (auto) 0.01 K/uL (0-0.2); Basophils % (auto) 0.2 %; Eosinophils # (auto) 0.38 K/uL (0-0.5); Eosinophils % (auto) 5.9 %; Hematocrit (blood only) 30.1 % (37-47); Hemoglobin 9.9 g/dL (12.0-16.0); Immature Granulocytes # (auto) 0.01 K/uL (0.00-0.02); Immature Granulocytes % (auto) 0.2 %; Lymphocytes # (auto) 1.35 K/uL (1.2-3.4); Lymphocytes % (auto) 21.1 %; Mean Corpuscular Hemoglobin 31.9 pg (25-34); Mean Corpuscular Hgb Conc 32.9 g/dL (32-36); Mean Corpuscular Volume 97.1 fL (80-100); Mean Platelet Volume 9.8 fL (7.4-10.4); Monocytes # (auto) 0.46 K/uL (0.11-0.59); Monocytes % (auto) 7.2 %; Neutrophils # (auto) 4.19 K/uL (1.4-6.5); Neutrophils % (auto) 65.4 %; Platelet Count 243 K/uL (130-400); RDW Coefficient of Variation 16.2 % (11.5-14.5); RDW Standard Deviation 56.6 fL (36.4-46.3)
[2021-02-11 11:28] LABS: INR 2.9 (0.9-1.1); Prothrombin Time 27.2 Seconds (9.0-12.0)
[2021-02-11 11:38] LABS: Albumin Level 2.6 gm/dl (3.4-5.0); BUN Creatinine Ratio 35.4 (10-20); Blood Urea Nitrogen 21 mg/dl (7-18); Calcium 7.6 mg/dl (8.5-10.1); Carbon Dioxide 29 mmol/L (21-32); Chloride 113 mmol/L (98-107); Creatinine Clr Calc Pharmacy 75.4 ml/min; Est GFR (African American) 109.8; Est GFR (Non-African American) 94.7; Glucose 72 mg/dl (70-99); Lipase 59 U/L (73-393); Magnesium 2.2 mg/dl (1.8-2.4); Potassium 3.8 mmol/L (3.5-5.1); Sodium 144 mmol/L (136-145)
[2021-02-11 11:52] LABS: Alanine Aminotransferase 25 U/L (12-78); Albumin Globulin Ratio 0.8 (0.9-2); Alkaline Phosphatase 116 U/L (45-117); Aspartate Aminotransferase 20 U/L (15-37); Bilirubin,Total 0.9 mg/dl (0.2-1); Globulin 3.1 gm/dl (2.5-4.0); Total Protein 5.7 gm/dl (6.4-8.2); Troponin I < 0.015 ng/ml (0-0.045)
--- NOTE | 2021-02-11 13:00 | History & Physical Report ---
Date of Service February 11, 2021 Assessment & Plan (1) A-fib: This is a 70-year-old female who has significant past medical history of persistent atrial fibrillation anticoagulated on warfarin, tachybrady syndrome status post PPM, diastolic CHF, history of gastric bypass, COPD, depression who presents to ED at the referral cardiology clinic for Tikosyn initiation. Previously patient had been on sotalol and underwent cardioversion 04/2020 and required additional cardioversion 08/2020. She continues to remain in atrial fibrillation. Seen in cardiology clinic on 02/05 and sotalol was discontinued for washout. Presents today per cardiology recommendation to start Tikosyn. Admit to PCU consult cardiology supplement potassium 20meq , keep K > 4, Mag > 2 NPO after midnight continue metoprolol and warfarin pt is now off sotatolol since 02/05 defer tikosyn initiation to cardiology [id number] - continue warfarin 2.5mg daily, INR has been within range (2) Chronic heart failure with preserved ejection fraction (HFpEF): Last echocardiogram 08/2020 revealed EF 55 to 59%, severely dilated left atrium and right atrium, grade 2 diastolic dysfunction, mild MR, moderate TR Continue metoprolol and Lasix Daily weights, strict I's and O's Per patient baseline weight 137 Heart healthy, low-sodium diet Cardiology consulted (3) Tachy-corin syndrome: s/p PPM recent interrogation revealed 100% A. fib burden, otherwise normal function (4) Anemia: H&H 9.9 and 30.1 Normocytic normochromic On iron supplements Stable, monitor, no signs of bleeding last anemia w/u in 2018 revealed normal ferritin, b12, folic acid likely in setting of chronic disease (5) COPD (chronic obstructive pulmonary disease): No acute exacerbation Continue Advair, as needed albuterol, Accolate (6) Dizziness: Patient complains of intermittent dizziness and off-balance 2 recent falls sustaining a rib fracture, no longer symptomatic consult PT/OT (7) DVT prophylaxis: warfarin Dispo: PCU for tikosyn load PCP: May FULL CODE Pt was seen and examined in collaboration with Dr. Mclain, please see addendum History of Present Illness Chief Complaint: Referred from cardiology clinic for tikosyn initiation. Primary Care Provider: Russell Olvera DO This is a 70-year-old female who has significant past medical history of persistent atrial fibrillation anticoagulated on warfarin, tachybrady syndrome status post PPM, diastolic CHF, history of gastric bypass, COPD, depression who presents to ED at the referral cardiology clinic for Tikosyn initiation. She was seen and evaluated in cardiology clinic on 02/05 with complaint of increasing shortness of breath, fatigue and a 6 pound weight gain. She was instructed to increase her Lasix to 40 mg twice daily for 3 days and return to 40 mg daily. Of significance she did have a pacemaker interrogation on 01/29 which revealed 100% afib burden with heart rate 90 to 150 bpm. Patient has prior history of A. fib requiring cardioversion and sotalol initiation on 04/2020 with repeat cardioversion on 08/2020. During office visit she was instructed to stop sotalol, increase metoprolol tartrate direct admission to be arranged to initiate Tikosyn. She continues to feel shortness with exertion. She walks at [employer] and states when working she becomes very winded requiring her to rest. She denies any shortness of breath at rest. She also complains of increased fatigue and lower extremity edema. Her weight is approximately 137 pounds. She feels her swelling is the same as it has been for the last several months. She denies any recent fever, chills, sweats, lightheadedness, syncope, chest pain, palpitations nausea, vomiting, abdominal pain. She does complain of intermittent dizziness and feeling off balance. She had 2 falls in December, the first resulting in a fractured rib. She also elicits to loose stool ever since having her revised gastric bypass. She denies any change in urination including dysuria, increased urgency or frequency with urination, melena or hematochezia. Her appetite remains stable. The only medication she took this morning was metoprolol. She has since stopped taking sotalol per cardiology recommendations. Allergies Allergy/AdvReac Type Severity Reaction Status Date / Time oxycodone AdvReac Intermediate GI SYMPTOMS Verified 02/11/21 13:19 Home Medications Medication Instructions Recorded Confirmed Type Flintstones Tab Chew 1 tab PO QAM 07/20/18 02/11/21 History albuterol sulfate [Ventolin HFA] 1 - 2 puff INHALATION QID PRN 07/20/18 02/11/21 History cholecalciferol (vitamin D3) 2,000 unit PO QAM 07/20/18 02/11/21 History [Vitamin D3] fluticasone propion-salmeterol 1 inh INHALATION BID 07/20/18 02/11/21 History [Advair Diskus] sertraline [Zoloft] 50 mg PO QAM 07/20/18 02/11/21 History warfarin 2.5 mg PO DAILY@1600 07/20/18 02/11/21 History magnesium oxide 400 mg PO QAM #34 tab 04/23/20 02/11/21 Rx zafirlukast [Accolate] 20 mg PO QAM 12/25/20 02/11/21 History furosemide 40 mg PO DAILY 02/11/21 02/11/21 History iron,carbonyl-vitamin C [Vitron-C] 1 tab PO BID 02/11/21 02/11/21 History metoprolol succinate 25 mg PO QPM 02/11/21 02/11/21 History metoprolol succinate 50 mg PO QAM 02/11/21 02/11/21 History triamcinolone acetonide 1 applic TOPICAL BID 02/11/21 02/11/21 History [Aristocort] Past Med/Surg History Medical History (Updated 02/11/21 @ 14:00 by Christel Castillo PA-C) A-fib S/P DANAE guided DCCV 10/2018. Reverted back to afib 03/2020. External DCCV 04/23/20. 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 Surgical History (Updated 02/11/21 @ 13:33 by Christel Castillo PA-C) H/O colonoscopy H/O gastric bypass H/O hernia repair H/O ventral hernia repair History of cholecystectomy Pacemaker LAST CHECK AUG 2020 S/P appendectomy S/P small bowel resection Family History Other Cancer Hypertension Lung disease Social History (Updated 02/11/21 @ 13:32 by Christel Castillo PA-C) Smoking Status: Never smoker Second Hand Exposure: Yes ( SMOKES); Hx Alcohol Use: Yes Alcohol type: beer Alcohol Intake Frequency: Monthly or Less Hx Substance Use: No Preferred Language: Portuguese Communication Ability: Effective Cashier Clerk Required: No Beliefs That Will Affect Care: None Current Living Situation: Spouse current occupational status: employed Feels Safe at Home: Yes Review of Systems Review of Systems: All systems reviewed & are unremarkable except as noted in HPI & below Physical Exam Physical Exam: Constitutional: WD/WN, F, vitals as above, NAD, sitting up in bed, pleasant, conversing easily Head: Normocephalic, Atraumatic Eyes: PERRL, conjunctivae normal, anicteric sclerae ENMT: external ear and nose normal, oropharynx normal Neck: trachea midline, no thyromegaly normal visual inspection Respiratory: normal respiratory effort, lungs clear to auscultation, no wheeze, rales, rhonchi. Normal insp/exp effort, no accessory muscle use Cardiovascular: IRR/IRR, no murmur, +1 b/l lower ext pitting edema Vessels: no JVD or carotid bruit Chest: LACW pacer site noted, normal inspection of chest Abdomen: normal bowel sounds, soft, nontender, no hepatosplenomegaly Musculoskeletal: no cyanosis or clubbing, extremities motor strength 5/5 Skin: +macular erythematous plaques on extensor surfaces of extremities/dermatitis, warm and dry normal turgor Neurologic: PERRL, EOMI, accommodation nl, no face palsy, no dysarthria CN's II-XI intact bilaterally and moves all extremities Psychiatric: A+Ox3, euthymic affect Lymphatic: no cervical or axillary lymphadenopathy : deferred Results & Data Results & Data ([facility]) Vital Signs (Past 12 Hours) Vital Signs Temp Pulse Resp BP Pulse Ox 02/11/21 12:31 80 13 94 02/11/21 12:30 93 H 12 130/94 96 02/11/21 12:01 92 H 14 95 02/11/21 12:00 88 14 122/81 96 02/11/21 11:31 91 H 13 100 02/11/21 11:30 99 H 13 124/85 100 02/11/21 11:16 98 02/11/21 11:01 105 H 14 02/11/21 11:00 94 H 24 120/73 04/28/21 10:43 104 H 21 02/11/21 10:30 89 34 H 122/83 02/11/21 10:08 36.5 C 109 H 18 114/81 95 Diagnostic Findings Chest X-Ray 02/11/21 10:22 XR chest 1V portable HISTORY: 70 years-old Female SOB acute shortness of breath COMPARISON: Chest radiograph 01/08/2021, CT chest 12/25/2020 TECHNIQUE: Portable AP view of the chest FINDINGS: Cardiac mediastinal and hilar silhouettes are within normal limits. Left subclavian pacer. No pneumothorax, pleural effusion, airspace consolidation or overt pulmonary edema. Bones of the chest appear grossly intact. Cholecystectomy. IMPRESSION: No acute process. ACT 112: Negative or not required by law. The above report was generated using voice recognition software. It may contain grammatical, syntax or spelling errors. Electronically signed by: Corwin Bejarano M.D. 02/11/2021 10:50 AM ECG Rate (beats per minute): 109 Rhythm: atrial fibrillation COVID-19 Results Results COVID-19 Adm Lab Results: RBC 3.10 M/uL (4.2-5.4) L 02/11/21 WBC 6.40 K/uL (4.8-10.8) 02/11/21 Hgb 9.9 g/dL (12.0-16.0) L 02/11/21 Hct 30.1 % (37-47) L 02/11/21 Plt Count 243 K/uL (130-400) 02/11/21 Neutrophils (%) (Auto) 65.4 % 02/11/21 Lymphocytes (%) (Auto) 21.1 % 02/11/21 Monocytes # (Auto) 0.46 K/uL (0.11-0.59) 02/11/21 Eosinophils # (Auto) 0.38 K/uL (0-0.5) 02/11/21 Immature Granulocyte % (Auto) 0.2 % 02/11/21 Neutrophils # (Auto) 4.19 K/uL (1.4-6.5) 02/11/21 Lymphocytes # (Auto) 1.35 K/uL (1.2-3.4) 02/11/21 Monocytes # (Auto) 0.46 K/uL (0.11-0.59) 02/11/21 Eosinophils # (Auto) 0.38 K/uL (0-0.5) 02/11/21 Basophils # (Auto) 0.01 K/uL (0-0.2) 02/11/21 Immature Granulocyte # (Auto) 0.01 K/uL (0.00-0.02) 02/11/21 Na 144 mmol/L (136-145) 02/11/21 K 3.8 mmol/L (3.5-5.1) 02/11/21 Cl 113 mmol/L (98-107) H 02/11/21 CO2 29 mmol/L (21-32) 02/11/21 Anion Gap 2.0 (3-11) L 02/11/21 BUN 21 mg/dl (7-18) H 02/11/21 Creatinine 0.58 mg/dl (0.6-1.2) L 02/11/21 BUN/Creatinine Ratio 35.4 (10-20) H 02/11/21 Glucose Level 72 mg/dl (70-99) 02/11/21 Ca 7.6 mg/dl (8.5-10.1) L 02/11/21 Total Bilirubin 0.9 mg/dl (0.2-1) 02/11/21 AST/SGOT 20 U/L (15-37) 02/11/21 ALT/SGPT 25 U/L (12-78) 02/11/21 Alkaline Phosphatase 116 U/L (45-117) 02/11/21 Total Protein 5.7 gm/dl (6.4-8.2) L 02/11/21 Albumin 2.6 gm/dl (3.4-5.0) L 02/11/21 Globulin 3.1 gm/dl (2.5-4.0) 02/11/21 Albumin/Globulin Ratio 0.8 (0.9-2) L 02/11/21 Troponin I < 0.015 ng/ml (0-0.045) 02/11/21 INR 2.9 (0.9-1.1) H 02/11/21 COVID-19 PCR NEGATIVE (Negative) 02/11/21 Influenza Virus Type A (PCR) Negative (Neg) 02/11/21 Influenza Virus Type B (PCR) Negative (Neg) 02/11/21 Chest X-Ray 02/11/21 Code Status & VTE Plan Code Status Full Code VTE Prophylaxis Plan VTE Prophylaxis will be ordered: No Supervising Physician Co-Signing Physician Notes Patient is a 70-year-old female with history of atrial fibrillation, tachybradycardia syndrome, CHF and other medical problems 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 She admits to having dyspnea on minimal exertion, generalized weakness, weight gain, lower extremity edema. Please review HPI for complete details of presentation. She was planned to be started on Tikosyn by cardiology. Labs suggestive of chronic anemia with hemoglobin 9.9. INR therapeutic at 2.9 while on Coumadin. Chest x-ray showed no acute findings. She is minimally tachycardic while in ED. On exam patient is moderately built and nourished, no apparent distress, normocephalic atraumatic, lungs-normal breath sounds, clear to auscultation, irregularly irregular rhythm, tachycardia,+ pacer, 2+ bilateral lower extremity edema, abdomen soft, nontender, normal bowel sounds, alert, awake, oriented,+ hearing impairment, grossly no focal deficits. Patient is admitted for management of symptomatic atrial fibrillation. Sotalol recently discontinued. Plan to be started on Tikosyn by cardiology. Will monitor electrolytes and replace as needed. Cardiology consulted. We will continue Coumadin for anticoagulation. Monitor INR. Continue home diuretics. Monitor I's and O's, daily weight. I personally reviewed the record. Patient is interviewed and examined at bedside. Patient's care is coordinated with Christel Castillo PA-C. Please refer to the documentation above for details of patient's presentation and for discussion of other issues.
[2021-02-11] MEDS ORDERED: POTASSIUM CHLORIDE CRTAB 20 MEQ TABCR PO STA (13:20)
[2021-02-11 13:43] LABS: Influenza A virus by PCR Negative (Neg); Influenza B virus by PCR Negative (Neg); RSV by PCR Negative (Neg); SARS CoV2 RNA(COVID-19) InHosp NEGATIVE (Negative)
--- NOTE | 2021-02-11 16:08 | Emergency Department Note ---
Impression & Plan A-fib, SOB (shortness of breath), Anticoagulated ED Provider Note INFORMANT: Patient ED PROVIDER(S): Hiren Romo MD CHIEF COMPLAINT: A. fib PLAN: Disposition: Admitted Condition: Good Outpatient prescription management: none Referral: None MEDICAL DECISION MAKING: Patient presented because of atrial fibrillation. She noted she was here under the direction of cardiology for admission and cardioversion. She has been experiencing shortness of breath and occasional chest discomfort. She had an IV established. Her ECG reveals atrial fibrillation with borderline rapid ventricu lar response. On reassessment this was improved. She had a bowel movement CBC. No leukocytosis. She has a therapeutic INR. Remainder of her labs are unremarkable. Consultation was made with Dr. Menchaca of cardiology. The patient will be admitted under medicine. I did discuss the case with Christel Castillo PA-C and the patient will be admitted under Dr. Mclain of the hospitalist service. Triage Nursing notes reviewed and agree them. Vital Signs: reviewed and remarkable for borderline tachycardia Differential diagnosis: Premature contractions, electrolyte abnormality, cardiac dysrhythmia, thyroid dysfunction, pulmonary embolism, infection, gastrointestinal, as well as other pathologies. Diagnostics interpreted by me: ECG: Twelve-lead ECG reveals atrial fibrillation with rapid ventricular response at 109 bpm. Occasional paced beat noted. Left axis deviation. No ST elevation or depression. No PVCs. Cardiac Monitoring: Cardiac monitoring ordered by me: The patient was placed on continuous cardiac monitoring and observed. It revealed a atrial fibrillation at 98 bpm Imaging studies: Chest x-ray. Findings: A chest x-ray was performed and revealed no pneumothorax, effusion, infiltrate, pulmonary edema, free air under the diaphragm, or wide mediastinum. Impression: No acute disease. HPI: The patient is a 70 year old female who presents to the Emergency Room with complaints of A. fib. This started weeks ago and is persistent.. The patient also notes the following associated symptoms, shortness of breath, occasional chest discomfort on the left side, lower extremity edema. The patient has been tried on sotalol unsuccessfully for relieving factors. Current pain is rated as 0/10. Patient was directed to the ER by Dr. Menchaca of cardiology for admission and probable cardioversion. The patient has been cardioverted in the past for similar issues. Pt denies LOC, headache, fevers, chills, diaphoresis, visual changes, neck pain, nausea, vomiting, abdominal pain, back pain, melena, hematochezia, urinary symptoms, numbness, weakness, lymphadenopathy, rash, or other complaints. ROS: See above HPI for pertinent positives & negatives. A total of 10 systems reviewed and were otherwise negative. PAST MEDICAL HISTORY:See Below , atrial fibrillation PAST SURGICAL HISTORY:See Below, cardioversion FAMILY HISTORY:See Below SOCIAL HISTORY:See Below, non-smoker HOME MEDICATIONS:See Below ALLERGIES:See Below VITALS:See Below PHYSICAL EXAMINATION: GENERAL: Awake, alert, well-appearing, in no distress HENT: Normocephalic, atraumatic. Oropharynx unremarkable. EYES: Normal conjunctiva. Sclera non-icteric. NECK: Inspection normal. Non-tender. Supple. No nuchal rigidity. FROM. No masses. RESPIRATORY: Clear to auscultation. No wheezes. No rales. Normal respiratory effort. CARDIAC: Borderline tachycardic rate. Irregular rhythm. No murmurs. No rubs. Extremities warm and well perfused. Pulses equal. No JVD. GI: Soft, non-distended. No tenderness to palpation. No rebound or guarding. No masses. RECTAL: Deferred. MUSCULOSKELETAL: Atraumatic. Chest examination reveals no tenderness. The back is symmetrical on inspection without obvious abnormality. There is no CVA tenderness to palpation. No joint edema. LOWER EXTREMITIES: Calves are equal size bilaterally and non-tender. 1-2+ edema. No discoloration. NEURO: Normal sensorium. No sensory or motor deficits noted. SKIN: No rash or jaundice noted. Hiren Rmoo MD Past Med/Surg History Medical History (Updated 02/11/21 @ 16:03 by Hiren Romo MD) A-fib S/P DANAE guided DCCV 10/2018. Reverted back to afib 03/2020. External DCCV 04/23/20. 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 Surgical History (Updated 02/11/21 @ 13:33 by Christel Castillo PA-C) H/O colonoscopy H/O gastric bypass H/O hernia repair H/O ventral hernia repair History of cholecystectomy Pacemaker LAST CHECK AUG 2020 S/P appendectomy S/P small bowel resection Family History Other Cancer Hypertension Lung disease Social History (Updated 02/11/21 @ 13:32 by Christel Castillo PA-C) Smoking Status: Never smoker Second Hand Exposure: Yes ( SMOKES); Hx Alcohol Use: Yes Alcohol type: beer Alcohol Intake Frequency: Monthly or Less Hx Substance Use: No Preferred Language: Mosotho Communication Ability: Effective 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 Required: No Beliefs That Will Affect Care: None Current Living Situation: Spouse current occupational status: employed Feels Safe at Home: Yes Allergies Allergies Allergy/AdvReac Type Severity Reaction Status Date / Time oxycodone AdvReac Intermediate GI SYMPTOMS Verified 02/11/21 13:19 Home Meds Home Medications Medication Instructions Recorded Confirmed Flintstones Tab Chew 1 tab PO QAM 07/20/18 02/11/21 albuterol sulfate [Ventolin HFA] 1 - 2 puff INHALATION QID PRN 07/20/18 02/11/21 cholecalciferol (vitamin D3) 2,000 unit PO QAM 07/20/18 02/11/21 [Vitamin D3] fluticasone propion-salmeterol 1 inh INHALATION BID 07/20/18 02/11/21 [Advair Diskus] sertraline [Zoloft] 50 mg PO QAM 07/20/18 02/11/21 warfarin 2.5 mg PO DAILY@1600 07/20/18 02/11/21 zafirlukast [Accolate] 20 mg PO QAM 12/25/20 02/11/21 furosemide 40 mg PO DAILY 02/11/21 02/11/21 iron,carbonyl-vitamin C [Vitron-C] 1 tab PO BID 02/11/21 02/11/21 metoprolol succinate 25 mg PO QPM 02/11/21 02/11/21 metoprolol succinate 50 mg PO QAM 02/11/21 02/11/21 triamcinolone acetonide 1 applic TOPICAL BID 02/11/21 02/11/21 [Aristocort] Previous Rx's Medication Instructions Recorded magnesium oxide 400 mg PO QAM #34 tab 04/23/20 Results & Data (ED) Vital Signs Vital Signs - 24 hr 02/11/21 10:08 02/11/21 10:30 02/11/21 10:43 Temperature 36.5 C Temperature Source Skin Pulse Rate 109 H 89 104 H Pulse Rate from SpO2 Sensor Respiratory Rate 18 34 H 21 Respiratory Effort / Characteristics Non-Labored Spontaneous Respiratory Depth Normal Respiratory Pattern Regular Blood Pressure 114/81 122/83 Blood Pressure Mean 92 96 Blood Pressure Position Sitting Pulse Oximetry 95 Oxygen Delivery Method Sepsis Recent Fever Within 48 Hours No Sepsis New/Unexplained Change in Mental Status N/A Sepsis Action Taken by Nursing No Action Required 02/11/21 11:00 02/11/21 11:01 02/11/21 11:16 Temperature Temperature Source Pulse Rate 94 H 105 H Pulse Rate from SpO2 Sensor Respiratory Rate 24 14 Respiratory Effort / Characteristics Respiratory Depth Respiratory Pattern Blood Pressure 120/73 Blood Pressure Mean 88 Blood Pressure Position Pulse Oximetry 98 Oxygen Delivery Method Room Air Sepsis Recent Fever Within 48 Hours Sepsis New/Unexplained Change in Mental Status Sepsis Action Taken by Nursing 02/11/21 11:30 02/11/21 11:31 02/11/21 12:00 Temperature Temperature Source Pulse Rate 99 H 91 H 88 Pulse Rate from SpO2 Sensor 97 H 95 H 94 H Respiratory Rate 13 13 14 Respiratory Effort / Characteristics Respiratory Depth Respiratory Pattern Blood Pressure 124/85 122/81 Blood Pressure Mean 98 94 Blood Pressure Position Pulse Oximetry 100 100 96 Oxygen Delivery Method Sepsis Recent Fever Within 48 Hours Sepsis New/Unexplained Change in Mental Status Sepsis Action Taken by Nursing 02/11/21 12:01 02/11/21 12:30 02/11/21 12:31 Temperature Temperature Source Pulse Rate 92 H 93 H 80 Pulse Rate from SpO2 Sensor 93 H 98 H 87 Respiratory Rate 14 12 13 Respiratory Effort / Characteristics Respiratory Depth Respiratory Pattern Blood Pressure 130/94 Blood Pressure Mean 106 Blood Pressure Position Pulse Oximetry 95 96 94 Oxygen Delivery Method Sepsis Recent Fever Within 48 Hours Sepsis New/Unexplained Change in Mental Status Sepsis Action Taken by Nursing 02/11/21 13:00 02/11/21 13:01 02/11/21 13:14 Temperature Temperature Source Pulse Rate 80 90 95 H Pulse Rate from SpO2 Sensor 86 86 102 H Respiratory Rate 11 L 13 14 Respiratory Effort / Characteristics Respiratory Depth Respiratory Pattern Blood Pressure 126/76 126/85 Blood Pressure Mean 92 98 Blood Pressure Position Pulse Oximetry 96 96 100 Oxygen Delivery Method Sepsis Recent Fever Within 48 Hours Sepsis New/Unexplained Change in Mental Status Sepsis Action Taken by Nursing 02/11/21 13:30 02/11/21 13:31 02/11/21 14:00 Temperature Temperature Source Pulse Rate 84 93 H 77 Pulse Rate from SpO2 Sensor 88 83 79 Respiratory Rate 16 14 12 Respiratory Effort / Characteristics Respiratory Depth Respiratory Pattern Blood Pressure 120/82 116/76 Blood Pressure Mean 94 89 Blood Pressure Position Pulse Oximetry 98 100 98 Oxygen Delivery Method Sepsis Recent Fever Within 48 Hours Sepsis New/Unexplained Change in Mental Status Sepsis Action Taken by Nursing 02/11/21 14:01 02/11/21 14:30 02/11/21 14:31 Temperature Temperature Source Pulse Rate 76 87 77 Pulse Rate from SpO2 Sensor 88 92 H 79 Respiratory Rate 11 L 12 13 Respiratory Effort / Characteristics Respiratory Depth Respiratory Pattern Blood Pressure 122/74 Blood Pressure Mean 90 Blood Pressure Position Pulse Oximetry 97 95 96 Oxygen Delivery Method Sepsis Recent Fever Within 48 Hours Sepsis New/Unexplained Change in Mental Status Sepsis Action Taken by Nursing 02/11/21 15:00 02/11/21 15:01 02/11/21 15:09 Temperature Temperature Source Pulse Rate 77 83 Pulse Rate from SpO2 Sensor 81 83 Respiratory Rate 15 15 Respiratory Effort / Characteristics Respiratory Depth Respiratory Pattern Blood Pressure 102/76 Blood Pressure Mean 84 Blood Pressure Position Pulse Oximetry 98 98 Oxygen Delivery Method Room Air Sepsis Recent Fever Within 48 Hours Sepsis New/Unexplained Change in Mental Status Sepsis Action Taken by Nursing Laboratory Data Result diagrams: 02/11/21 11:05 02/11/21 11:05 Lab Results 02/11/21 02/11/21 02/11/21 Range/Units 11:05 11:05 11:05 WBC 6.40 (4.8-10.8) K/uL RBC 3.10 L (4.2-5.4) M/uL Hgb 9.9 L (12.0-16.0) g/dL Hct 30.1 L (37-47) % MCV 97.1 (80-100) fL MCH 31.9 (25-34) pg MCHC 32.9 (32-36) g/dL RDW Std Deviation 56.6 H (36.4-46.3) fL RDW Coeff of Saman 16.2 H (11.5-14.5) % Plt Count 243 (130-400) K/uL MPV 9.8 (7.4-10.4) fL Immature Gran % (Auto) 0.2 % Neut % (Auto) 65.4 % Lymph % (Auto) 21.1 % [place] % (Auto) 7.2 % Eos % (Auto) 5.9 % Baso % (Auto) 0.2 % Neut # (Auto) 4.19 (1.4-6.5) K/uL Lymph # (Auto) 1.35 (1.2-3.4) K/uL [place] # (Auto) 0.46 (0.11-0.59) K/uL Eos # (Auto) 0.38 (0-0.5) K/uL Baso # (Auto) 0.01 (0-0.2) K/uL Immature Gran # (Auto) 0.01 (0.00-0.02) K/uL PT 27.2 H (9.0-12.0) Seconds INR 2.9 H (0.9-1.1) Sodium 144 (136-145) mmol/L Potassium 3.8 (3.5-5.1) mmol/L Chloride 113 H (98-107) mmol/L Carbon Dioxide 29 (21-32) mmol/L Anion Gap 2.0 L (3-11) BUN 21 H (7-18) mg/dl Creatinine 0.58 L (0.6-1.2) mg/dl Est Cr Clr Drug Dosing 75.4 ml/min Est GFR ( Amer) 109.8 Est GFR (Non-Af Amer) 94.7 BUN/Creatinine Ratio 35.4 H (10-20) Glucose 72 (70-99) mg/dl Calcium 7.6 L (8.5-10.1) mg/dl Magnesium 2.2 (1.8-2.4) mg/dl Total Bilirubin 0.9 (0.2-1) mg/dl AST 20 (15-37) U/L ALT 25 (12-78) U/L Alkaline Phosphatase 116 (45-117) U/L Troponin I < 0.015 (0-0.045) ng/ml Total Protein 5.7 L (6.4-8.2) gm/dl Albumin 2.6 L (3.4-5.0) gm/dl Globulin 3.1 (2.5-4.0) gm/dl Albumin/Globulin Ratio 0.8 L (0.9-2) Lipase 59 L (73-393) U/L TSH (0.300-4.500) uIu/ml COVID-19 Eval Order SARS-CoV-2 (PCR) (Negative) Influenza Type A (PCR) (Neg) Influenza Type B (PCR) (Neg) RSV (RT-PCR) (Neg) 02/11/21 02/11/21 02/11/21 Range/Units 11:05 12:45 12:45 WBC (4.8-10.8) K/uL RBC (4.2-5.4) M/uL Hgb (12.0-16.0) g/dL Hct (37-47) % MCV (80-100) fL MCH (25-34) pg MCHC (32-36) g/dL RDW Std Deviation (36.4-46.3) fL RDW Coeff of Saman (11.5-14.5) % Plt Count (130-400) K/uL MPV (7.4-10.4) fL Immature Gran % (Auto) % Neut % (Auto) % Lymph % (Auto) % [place] % (Auto) % Eos % (Auto) % Baso % (Auto) % Neut # (Auto) (1.4-6.5) K/uL Lymph # (Auto) (1.2-3.4) K/uL [place] # (Auto) (0.11-0.59) K/uL Eos # (Auto) (0-0.5) K/uL Baso # (Auto) (0-0.2) K/uL Immature Gran # (Auto) (0.00-0.02) K/uL PT (9.0-12.0) Seconds INR (0.9-1.1) Sodium (136-145) mmol/L Potassium (3.5-5.1) mmol/L Chloride (98-107) mmol/L Carbon Dioxide (21-32) mmol/L Anion Gap (3-11) BUN (7-18) mg/dl Creatinine (0.6-1.2) mg/dl Est Cr Clr Drug Dosing ml/min Est GFR ( Amer) Est GFR (Non-Af Amer) BUN/Creatinine Ratio (10-20) Glucose (70-99) mg/dl Calcium (8.5-10.1) mg/dl Magnesium (1.8-2.4) mg/dl Total Bilirubin (0.2-1) mg/dl AST (15-37) U/L ALT (12-78) U/L Alkaline Phosphatase (45-117) U/L Troponin I (0-0.045) ng/ml Total Protein (6.4-8.2) gm/dl Albumin (3.4-5.0) gm/dl Globulin (2.5-4.0) gm/dl Albumin/Globulin Ratio (0.9-2) Lipase (73-393) U/L TSH 4.500 (0.300-4.500) uIu/ml COVID-19 Eval Order CovFluRsv at [facility] SARS-CoV-2 (PCR) NEGATIVE (Negative) Influenza Type A (PCR) Negative (Neg) Influenza Type B (PCR) Negative (Neg) RSV (RT-PCR) Negative (Neg) Administered Medications Discontinued Medications Potassium Chloride (Potassium Chloride Crtab 20 Meq Tabcr) 20 meq PO NOW STA Stop: 02/11/21 13:21 Last Admin: 02/11/21 15:09 Dose: 20 meq Documented by: [id number] Imaging Data Radiologist's Impression: Chest X-Ray 02/11/21 10:22 XR chest 1V portable HISTORY: 70 years-old Female SOB acute shortness of breath COMPARISON: Chest radiograph 01/08/2021, CT chest 12/25/2020 TECHNIQUE: Portable AP view of the chest FINDINGS: Cardiac mediastinal and hilar silhouettes are within normal limits. Left subcla vian pacer. No pneumothorax, pleural effusion, airspace consolidation or overt pulmonary edema. Bones of the chest appear grossly intact. Cholecystectomy. IMPRESSION: No acute process. ACT 112: Negative or not required by law. The above report was generated using voice recognition software. It may contain grammatical, syntax or spelling errors. Electronically signed by: Corwin Bejarano M.D. 02/11/2021 10:50 AM Discharge Plan Visit Data Chief Complaint: Arrhythmia/Palpitations Stated Complaint: AFIB ED Provider: Hiren Romo ED Midlevel Provider: Dustin Dsouza Discharge Problem: A-fib, SOB (shortness of breath), Anticoagulated Discharge Instructions Interventions: ED Discharge Assessment Last Done: 02/11/21 15:09 Forms Stand Alone Forms: [facility] [place] Prescriptions Prescriptions: No Action fluticasone propion-salmeterol [Advair Diskus] 250-50 mcg/dose Blister With Device 1 inh INHALATION BID RF: 0 warfarin 2.5 mg Tablet 2.5 mg PO DAILY@1600 RF: 0 albuterol sulfate [Ventolin HFA] 90 mcg/actuation Hfa Aerosol Inhaler 1 - 2 puff INHALATION QID PRN (Reason: Shortness Of Breath Or Wheezing) RF: 0 sertraline [Zoloft] 50 mg Tablet 50 mg PO QAM RF: 0 Flintstones Tab Chew 100 mcg Tablet,Chewable 1 tab PO QAM RF: 0 cholecalciferol (vitamin D3) [Vitamin D3] 2,000 unit Capsule 2,000 unit PO QAM RF: 0 magnesium oxide 400 mg (241.3 mg magnesium) Tablet 400 mg PO QAM Qty: 34 RF: 0 Vitron-C 65 mg iron- 125 mg Tablet,Delayed Release (Dr/Ec) 1 tab PO BID RF: 0 furosemide 20 mg tablet 40 mg PO DAILY RF: 0 triamcinolone acetonide [Aristocort] 0.1 % Cream 1 applic TOPICAL BID RF: 0 metoprolol succinate 25 mg Tablet Extended Release 24 Hr 50 mg PO QAM RF: 0 metoprolol succinate 25 mg tablet extended release 24 hr 25 mg PO QPM RF: 0 zafirlukast [Accolate] 20 mg tablet 20 mg PO QAM RF: 0 Referrals Referrals: Russell Olvera DO [Primary Care Provider] -
--- NOTE | 2021-02-11 16:12 | Cardiology Consultation ---
Date of Consultation February 11, 2021 Assessment & Plan (1) Atrial fibrillation with rapid ventricular response: (2) Visit for monitoring Tikosyn therapy: (3) SOB (shortness of breath): (4) Anticoagulated: (5) Chronic heart failure with preserved ejection fraction (HFpEF): (6) COPD (chronic obstructive pulmonary disease): (7) Tachy-corin syndrome: (8) Hyperlipidemia: Mrs. Higgins is now experiencing her second or possibly third occurrence of symptomatic atrial fibrillation despite high-dose sotalol therapy within the last year. The pathophysiology and treatment options for which have been discussed with her repeatedly. As per her most recent outpatient visit, she has agreed that she will be admitted for Tikosyn loading today. Her INR has been therapeutic. will give first dose at 1700 today and EKG to be performed at 1900 AM dose to be given at 0900 and follow up EKG at 1100 this is the protocol and timing that will be followed during her hospital stay. obviously, patient must be continuously monitored on telemetry Daily renal function and electrolytes should be monitored. Potassium 3.8 today so we will start potassium chloride 20 mEq twice daily this evening. Continue outpatient doses of metoprolol, Lasix and warfarin, goal INR remains 2- 3. Tikosyn protocol is as follows: to be directed by Cardiology. QTc interval should be measured 2 to 3 hours after the initial dose. If the QTc interval increases to more than 15% above baseline QTc or if the QTc is >500 msec (>550 msec in patients with ventricular conduction abnormalities), dofetilide dose should be reduced by 50%. If the starting dose was 500 mcg twice daily, then reduce to 250 mcg twice daily. If the starting dose was 250 mcg twice daily, then reduce to 125 mcg twice daily. If the starting dose was 125 mcg twice daily, then reduce to 125 mcg once daily. QTc interval should be measured 2 to 3 hours after each subsequent dose (in-hospital doses 2 through 5). If at any time after the second dose the QTc is >500 msec (>550 msec in patients with ventricular conduction abnormalities), dofetilide should be discontinued. History of Present Illness Reason for Consultation: PAF for Tikosyn loading Requesting Physician: [facility] Attending Physician: [facility] History of Present Illness Mrs. Higgins is a very pleasant 70-year-old woman who routinely follows with Dr. Haskins of our cardiology practice. She has a longstanding history of paroxysmal atrial fibrillation and was most recently admitted to [facility] for sotalol loading and cardioversion. Unfortunately, she failed sotalol therapy and reverted back to atrial fibrillation. When she is in atrial fibrillation she has been experiencing worsening shortness of breath with exertion and increased fatigue and lower extremity edema. Her outpatient sotalol dose has been held at her last outpatient visit on 02/05/2021 in order for her to washout of this antiarrhythmic and be able to started on Tikosyn. Her INR has been therapeutic for the entire calendar year of 2020. 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 Allergies Allergy/AdvReac Type Severity Reaction Status Date / Time oxycodone AdvReac Intermediate GI SYMPTOMS Verified 02/11/21 13:19 Home Medications Medication Instructions Recorded Confirmed Type Flintstones Tab Chew 1 tab PO QAM 07/20/18 02/11/21 History albuterol sulfate [Ventolin HFA] 1 - 2 puff INHALATION QID PRN 07/20/18 02/11/21 History cholecalciferol (vitamin D3) 2,000 unit PO QAM 07/20/18 02/11/21 History [Vitamin D3] fluticasone propion-salmeterol 1 inh INHALATION BID 07/20/18 02/11/21 History [Advair Diskus] sertraline [Zoloft] 50 mg PO QAM 07/20/18 02/11/21 History warfarin 2.5 mg PO DAILY@1600 07/20/18 02/11/21 History magnesium oxide 400 mg PO QAM #34 tab 04/23/20 02/11/21 Rx zafirlukast [Accolate] 20 mg PO QAM 12/25/20 02/11/21 History furosemide 40 mg PO DAILY 02/11/21 02/11/21 History iron,carbonyl-vitamin C [Vitron-C] 1 tab PO BID 02/11/21 02/11/21 History metoprolol succinate 25 mg PO QPM 02/11/21 02/11/21 History metoprolol succinate 50 mg PO QAM 02/11/21 02/11/21 History triamcinolone acetonide 1 applic TOPICAL BID 02/11/21 02/11/21 History [Aristocort] Patient History Medical History A-fib S/P DANAE guided DCCV 10/2018. Reverted back to afib 03/2020. External DCCV 04/23/20. 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 Surgical History H/O colonoscopy H/O gastric bypass H/O hernia repair H/O ventral hernia repair History of cholecystectomy Pacemaker LAST CHECK AUG 2020 S/P appendectomy S/P small bowel resection Family History Other Cancer Hypertension Lung disease Social History Smoking Status: Never smoker Second Hand Exposure: Yes ( still smokes); Do You Dip or Chew Tobacco: No; Tobacco Cessation Education Requested by Patient: No Hx Alcohol Use: Yes Alcohol type: beer Alcohol Intake Frequency: Monthly or Less Hx Substance Use: No Preferred Language: Yi Communication Ability: Effective Contract Runner Required: No Beliefs That Will Affect Care: None Current Living Situation: Spouse current occupational status: employed Other Information That Helps Us Care for You: No Feels Safe at Home: No Is there a partner from a previous relationship who is making you feel unsafe now?: No Any Concerns about Your Family Situation: No Would You Like to Speak to Someone About Your Situation: No Safety Concerns: Feels Safe At This Time Assistive Devices: Hearing Aid - Bilateral Review of Systems Review of Systems: All systems reviewed & are unremarkable except as noted in HPI & below Physical Exam Physical Exam: General: Awake, alert and oriented x 3. No acute distress. HEENT: Normocephalic, atraumatic. Pupils equal, round and reactive to light and accommodation. Extraocular muscles are intact. Anicteric sclera. Moist mucous membranes. Neck: No JVD. No bruit. Cardiovascular: irregularly irregular, unable to appreciate murmur, rub or gallop. Pulmonary: Clear to auscultation bilaterally. No rales, rhonchi, or wheezing. Abdomen: Bowel sounds x 4, soft. No rebound, guarding or tenderness. No organomegaly. Extremities: No clubbing, cyanosis or edema. +2 pedal pulses bilaterally. Skin: Warm and dry. Results & Data ([facility]) Vital Signs (Past 12 Hours) Vital Signs Temp Pulse Resp BP Pulse Ox 02/11/21 15:01 83 15 98 02/11/21 15:00 77 15 102/76 98 02/11/21 14:31 77 13 96 02/11/21 14:30 87 12 122/74 95 02/11/21 14:01 76 11 L 97 02/11/21 14:00 77 12 116/76 98 02/11/21 13:31 93 H 14 100 02/11/21 13:30 84 16 120/82 98 02/11/21 13:14 95 H 14 126/85 100 02/11/21 13:01 90 13 96 02/11/21 13:00 80 11 L 126/76 96 02/11/21 12:31 80 13 94 02/11/21 12:30 93 H 12 130/94 96 02/11/21 12:01 92 H 14 95 02/11/21 12:00 88 14 122/81 96 02/11/21 11:31 91 H 13 100 02/11/21 11:30 99 H 13 124/85 100 02/11/21 11:16 98 02/11/21 11:01 105 H 14 02/11/21 11:00 94 H 24 120/73 02/11/21 10:43 104 H 21 02/11/21 10:30 89 34 H 122/83 02/11/21 10:08 36.5 C 109 H 18 114/81 95 Diagnostic Findings Device interrogation reviewed dated 01/29/21 Appropriate battery longevity of 11 years, appropriate lead status, persistent atrial fibrillation since prior interrogation on 01/26 with burden 100%. Heart rates elevated ranging 90-150 at times It appears afib has been persistent since early December. Echocardiogram report reviewed dated September 04, 2020: Interpretation Summary The examination is adequate to evaluate the referral indication. The qualitative LV ejection fraction is 55-59% (normal). The left ventricular cavity size is normal. The LV wall thickness is normal. The left atrium is severely enlarged (>48 ml/m^2,). The right atrium is severely enlarged. The left ventricular diastolic function is moderately abnormal (grade II). The aortic valve has three leaflets. Aortic stenosis is absent. There is no significant aortic regurgitation. Mild mitral regurgitation is present. Moderate tricuspid regurgitation is present. There is no significant pulmonary regurgitation. No pericardial effusion is noted. The aortic root and proximal ascending aorta are normal sized.
--- NOTE | 2021-02-11 16:22 | Electrocardiogram Report ---
Test Reason : Blood Pressure : / mmHG Vent. Rate : 109 BPM Atrial Rate : 102 BPM P-R Int : 000 ms QRS Dur : 092 ms QT Int : 298 ms P-R-T Axes : 000 -30 032 degrees QTc Int : 401 ms Poor data quality, interpretation may be adversely affected Atrial fibrillation with rapid ventricular response with occasional ventricular-paced complexes Left axis deviation Abnormal ECG When compared with ECG of 08-JAN-2021 11:06, Vent. rate has increased BY 30 BPM Confirmed by Gutierrez Mistry ([id number]) on 02/11/2021 4:21:56 PM Referred By: Terry Menchaca Confirmed By:Gutierrez Mistry
[2021-02-11] MEDS ORDERED: ACETAMINOPHEN 325 MG TAB PO PRN (16:24)
[2021-02-11] MEDS ORDERED: ONDANSETRON INJ 2 MG/ML 2 ML VIAL IV PRN (16:24)
[2021-02-11] MEDS ORDERED: MAGNESIUM HYDROXIDE SUSP 30 ML UDC PO PRN (16:24)
[2021-02-11] MEDS ORDERED: ALBUTEROL HFA 8 GM INHALER INH PRN (16:24)
[2021-02-11] MEDS ORDERED: POLYETHYLENE (MIRALAX) 17 GM PACK PO PRN (16:24)
[2021-02-11] MEDS ORDERED: ALUMINUM/MAGNESIUM SUSP 30 ML UDC PO PRN (16:24)
[2021-02-11] MEDS: WARFARIN SOD 1 MG TAB PO SCH (17:09)
[2021-02-11] MEDS: FERROUS SULFATE 325 MG TAB PO SCH (17:10)
[2021-02-11] MEDS: ASCORBIC ACID 500 MG TAB PO SCH (17:11)
[2021-02-11] MEDS: POTASSIUM CHLORIDE CRTAB 20 MEQ TABCR PO SCH (17:12)
[2021-02-11] MEDS: DOFETILIDE 125 MCG CAPSULE PO SCH (17:13)
[2021-02-11] MEDS: METOPROLOL SUCC 25MG EXT REL TAB PO SCH (20:23)
[2021-02-11] MEDS: TRIAMCINOLONE ACET 0.1% CR 15 GM TUBE TOP SCH (20:23)
[2021-02-11] MEDS ORDERED: FERROUS SULFATE 325 MG TAB PO SCH (21:00)
[2021-02-12 06:09] LABS: Hematocrit (blood only) 27.5 % (37-47); Hemoglobin 9.1 g/dL (12.0-16.0); Mean Corpuscular Hemoglobin 31.8 pg (25-34); Mean Corpuscular Hgb Conc 33.1 g/dL (32-36); Mean Corpuscular Volume 96.2 fL (80-100); Mean Platelet Volume 9.6 fL (7.4-10.4); Platelet Count 214 K/uL (130-400); RDW Coefficient of Variation 16.1 % (11.5-14.5); RDW Standard Deviation 56.5 fL (36.4-46.3); Red Blood Count 2.86 M/uL (4.2-5.4); White Blood Count 5.25 K/uL (4.8-10.8)
[2021-02-12 06:17] LABS: INR 1.9 (0.9-1.1); Prothrombin Time 18.6 Seconds (9.0-12.0)
[2021-02-12 06:50] LABS: Albumin Level 2.3 gm/dl (3.4-5.0); BUN Creatinine Ratio 37.9 (10-20); Calcium 7.5 mg/dl (8.5-10.1); Creatinine Clr Calc Pharmacy 94.6 ml/min; Est GFR (African American) 118.5; Est GFR (Non-African American) 102.2; Magnesium 2.3 mg/dl (1.8-2.4); Potassium 4.3 mmol/L (3.5-5.1)
[2021-02-12 06:52] LABS: Albumin Globulin Ratio 0.8 (0.9-2); Bilirubin,Total 0.8 mg/dl (0.2-1); Globulin 2.8 gm/dl (2.5-4.0); Total Protein 5.1 gm/dl (6.4-8.2)
[2021-02-12] MEDS: FLUTICASONE/VILANTEROL 100/25MCG 14 PUFFS/INHALER INH SCH (08:21)
[2021-02-12] MEDS: MULTIVITAMIN CHEWABLE TAB PO SCH (08:22)
[2021-02-12] MEDS: ASCORBIC ACID 500 MG TAB PO SCH ×2 (08:22→18:01)
[2021-02-12] MEDS: FERROUS SULFATE 325 MG TAB PO SCH ×2 (08:23→18:00)
[2021-02-12] MEDS: CHOLECALCIFEROL 1,000 UNITS 25 MCG TAB PO SCH (08:24)
[2021-02-12] MEDS: METOPROLOL SUCC 50MG EXT REL TAB PO SCH (08:24)
[2021-02-12] MEDS: FUROSEMIDE 40 MG TAB PO SCH (08:24)
[2021-02-12] MEDS: SERTRALINE HCL 50 MG TABLET PO SCH (08:24)
[2021-02-12] MEDS: MAGNESIUM OXIDE 400 MG TAB PO SCH (08:24)
[2021-02-12] MEDS: POTASSIUM CHLORIDE CRTAB 20 MEQ TABCR PO SCH ×2 (08:24→18:00)
[2021-02-12] MEDS: TRIAMCINOLONE ACET 0.1% CR 15 GM TUBE TOP SCH ×2 (08:26→20:32)
[2021-02-12] MEDS: DOFETILIDE 125 MCG CAPSULE PO SCH ×2 (10:05→17:59)
--- NOTE | 2021-02-12 13:31 | Cardiology Progress Note ---
Date of Service February 12, 2021 Assessment & Plan (1) Atrial fibrillation with rapid ventricular response: (2) Visit for monitoring Tikosyn therapy: (3) SOB (shortness of breath): (4) Anticoagulated: (5) Chronic heart failure with preserved ejection fraction (HFpEF): (6) COPD (chronic obstructive pulmonary disease): (7) Tachy-corin syndrome: (8) Hyperlipidemia: Symptoms already improving with further rate control given the addition of Tikosyn. Tolerating Tikosyn loading very well without significant prolongation of her QTc interval or any ventricular arrhythmias or significant ectopy on telemetry. Should she remain in atrial fibrillation overnight she will be made n.p.o. and anticipate DC cardioversion in the a.m. We will continue to monitor after 6 doses of Tikosyn administered. Please call cardiology with QTC results of serial EKGs. Continue outpatient doses of metoprolol, Lasix and warfarin, goal INR remains 2- 3. Tikosyn protocol is as follows: to be directed by Cardiology. QTc interval should be measured 2 to 3 hours after the initial dose. If the QTc interval increases to more than 15% above baseline QTc or if the QTc is >500 msec (>550 msec in patients with ventricular conduction abnormalities), dofetilide dose should be reduced by 50%. If the starting dose was 500 mcg twice daily, then reduce to 250 mcg twice daily. If the starting dose was 250 mcg twice daily, then reduce to 125 mcg twice daily. If the starting dose was 125 mcg twice daily, then reduce to 125 mcg once daily. QTc interval should be measured 2 to 3 hours after each subsequent dose (in-hospital doses 2 through 5). If at any time after the second dose the QTc is >500 msec (>550 msec in patients with ventricular conduction abnormalities), dofetilide should be discontinued. Admission and Anticipated Discharge Date Admission Date: February 11, 2021 Subjective Patient seen and examined, chart reviewed. States that she is feeling better o vernight with further rate control given the addition of Tikosyn. Still some shortness of breath with exertion but denies chest pain, palpitations or lightheadedness. Telemetry reviewed: Atrial fibrillation rates in the 60s to 80s. QTC calculated via telemetry strips: 355 ms Review of Systems Review of Systems: All systems reviewed & are unremarkable except as noted in HPI & below Physical Exam Physical Exam: General: Awake, alert and oriented x 3. No acute distress. HEENT: Normocephalic, atraumatic. Pupils equal, round and reactive to light and accommodation. Extraocular muscles are intact. Anicteric sclera. Moist mucous membranes. Neck: No JVD. No bruit. Cardiovascular: irregularly irregular, unable to appreciate murmur, rub or gallop. Pulmonary: Clear to auscultation bilaterally. No rales, rhonchi, or wheezing. Abdomen: Bowel sounds x 4, soft. No rebound, guarding or tenderness. No organomegaly. Extremities: No clubbing, cyanosis or edema. +2 pedal pulses bilaterally. Skin: Warm and dry. Results & Data ([facility]) Vital Signs (Past 12 Hours) Vital Signs Temp Pulse Resp BP Pulse Ox 02/12/21 11:51 37.0 C 84 20 124/70 98 02/12/21 07:48 37.0 C 77 20 115/60 98 02/12/21 03:52 36.5 C 70 21 100/61 96
--- NOTE | 2021-02-12 14:38 | Hospitalist Progress Note ---
Date of Service February 12, 2021 Assessment & Plan (1) A-fib: This is a 70-year-old female who has significant past medical history of persistent atrial fibrillation anticoagulated on warfarin, tachybrady syndrome status post PPM, diastolic CHF, history of gastric bypass, COPD, depression who presents to ED at the referral cardiology clinic for Tikosyn initiation. Previously patient had been on sotalol and underwent cardioversion 04/2020 and required additional cardioversion 08/2020. She continues to remain in atrial fibrillation. Patient is continued with Tikosyn load Patient input from cardiology (2) Chronic heart failure with preserved ejection fraction (HFpEF): Last echocardiogram 08/2020 revealed EF 55 to 59%, severely dilated left atrium and right atrium, grade 2 diastolic dysfunction, mild MR, moderate TR Continue metoprolol and Lasix stable vol status (3) Tachy-corin syndrome: s/p PPM recent interrogation revealed 100% A. fib burden, otherwise normal function (4) Anemia: H&H 9.9 and 30.1 Normocytic normochromic On iron supplements Stable, monitor, no signs of bleeding last anemia w/u in 2018 revealed normal ferritin, b12, folic acid likely in setting of chronic disease (5) COPD (chronic obstructive pulmonary disease): No acute exacerbation Continue Advair, as needed albuterol, Accolate (6) Dizziness: Possible secondary to tachyarrhythmia question currently does not have any symptoms PT OT eval requested (7) DVT prophylaxis: warfarin Dispo:discharge home with medically stable PCP:Dr Olvera FULL CODE Admission and Anticipated Discharge Date Admission Date: February 11, 2021 Subjective Patient was sitting on chair, denies of any palpitation, no shortness of breath Feels much better, Cough no fever, Review of Systems Review of Systems: All systems reviewed & are unremarkable except as noted in Subjective Physical Exam Physical Exam: Physical exam: General: No acute distress, alert awake oriented x3 HEENT: PERRLA, EOMI, Heart: Irregular, trace bilateral lower extremity edema Lungs: Clear to auscultate, no wheeze or rales Abdomen: Soft nontender, no organomegaly Extremity: No cyanosis, no deformity, normal strength 5 out of 5 with upper and lower Neuro: No focal neurological deficit normal speech, normal visual field, Motor strength : normal both upper and lower extremity, sensation intact Psych: Alert awake oriented x3, normal affect Results & Data Results & Data ([facility]) Vital Signs (Past 12 Hours) Vital Signs Temp Pulse Resp BP Pulse Ox 02/12/21 11:51 37.0 C 84 20 124/70 98 02/12/21 07:48 37.0 C 77 20 115/60 98 02/12/21 03:52 36.5 C 70 21 100/61 96
[2021-02-12] MEDS: WARFARIN SOD 1 MG TAB PO SCH (16:35)
--- NOTE | 2021-02-12 20:09 | Electrocardiogram Report ---
Test Reason : Blood Pressure : / mmHG Vent. Rate : 079 BPM Atrial Rate : 090 BPM P-R Int : 000 ms QRS Dur : 094 ms QT Int : 442 ms P-R-T Axes : 000 -25 -10 degrees QTc Int : 506 ms Atrial fibrillation with frequent ventricular-paced complexes and with premature ventricular or aberr antly conducted complexes T wave abnormality, consider anterior ischemia Prolonged QT Abnormal ECG When compared with ECG of 11-FEB-2021 10:22, Vent. rate has decreased BY 30 BPM T wave inversion now evident in Anterior leads Confirmed by Seven Houser ([id number]) on 02/12/2021 8:08:58 PM Referred By: Terry Menchaca Confirmed By:Seven Houser
[2021-02-12] MEDS: METOPROLOL SUCC 25MG EXT REL TAB PO SCH (20:33)
--- NOTE | 2021-02-13 06:57 | Electrocardiogram Report ---
Test Reason : Blood Pressure : / mmHG Vent. Rate : 077 BPM Atrial Rate : 080 BPM P-R Int : 246 ms QRS Dur : 096 ms QT Int : 456 ms P-R-T Axes : 000 -23 -03 degrees QTc Int : 516 ms Atrial-paced rhythm with prolonged AV conduction Septal infarct (cited on or before 12-FEB-2021) T wave abnormality, consider anterolateral ischemia Prolonged QT Abnormal ECG When compared with ECG of 12-FEB-2021 07:33, QT has lengthened Confirmed by Seven Houser ([id number]) on 02/13/2021 6:57:34 AM Referred By: Terry Menchaca Confirmed By:Seven Houser
[2021-02-13] MEDS: CHOLECALCIFEROL 1,000 UNITS 25 MCG TAB PO SCH (08:51)
[2021-02-13] MEDS: ASCORBIC ACID 500 MG TAB PO SCH ×2 (08:51→17:22)
[2021-02-13] MEDS: FLUTICASONE/VILANTEROL 100/25MCG 14 PUFFS/INHALER INH SCH (08:52)
[2021-02-13] MEDS: FUROSEMIDE 40 MG TAB PO SCH (08:52)
[2021-02-13] MEDS: SERTRALINE HCL 50 MG TABLET PO SCH (08:52)
[2021-02-13] MEDS: DOFETILIDE 125 MCG CAPSULE PO SCH ×2 (08:53→17:22)
[2021-02-13] MEDS: METOPROLOL SUCC 50MG EXT REL TAB PO SCH (08:53)
[2021-02-13] MEDS: MAGNESIUM OXIDE 400 MG TAB PO SCH (08:53)
[2021-02-13] MEDS: MULTIVITAMIN CHEWABLE TAB PO SCH (08:53)
[2021-02-13] MEDS: FERROUS SULFATE 325 MG TAB PO SCH ×2 (08:54→17:23)
[2021-02-13] MEDS: POTASSIUM CHLORIDE CRTAB 20 MEQ TABCR PO SCH ×2 (08:54→17:22)
[2021-02-13] MEDS ORDERED: MIDAZOLAM HCL 5 MG/ML 1 ML VIAL ONE (09:39)
[2021-02-13] MEDS ORDERED: fentaNYL citrate 100 MCG/2 ML VIAL ONE (09:39)
[2021-02-13] MEDS: TRIAMCINOLONE ACET 0.1% CR 15 GM TUBE TOP SCH ×2 (09:41→20:43)
--- NOTE | 2021-02-13 10:03 | Pre Anesthesia Assessment ---
Date of Service February 13, 2021 Pre Sedation Assessment Vital Signs Temp Pulse Resp BP Pulse Ox 02/13/21 08:35 36.7 C 77 16 104/72 93 02/13/21 03:53 37 C 76 22 140/81 93 02/13/21 03:05 36.6 C 73 16 101/64 98 02/12/21 23:12 36.8 C 71 18 97/60 L 96 02/12/21 20:30 74 118/75 99 02/12/21 19:40 36.6 C 80 16 100/67 99 02/12/21 16:04 36.9 C 72 20 132/69 99 02/12/21 11:51 37.0 C 84 20 124/70 98 Pre-Sedation Airway Assessment Smoking Status: Never smoker Hx Sleep Apnea: No Hx Difficult Intubation: No Notes The planned sedation has been discussed with the patient. Informed Consent was obtained. I have identified the patient, determined the appropriateness of sedation and have assessed the patient immediately prior to the procedure. All medicine(s) and interventions are by my order.
--- NOTE | 2021-02-13 10:52 | Cardiology Progress Note ---
Date of Service February 13, 2021 Assessment & Plan (1) Atrial fibrillation with rapid ventricular response: (2) Visit for monitoring Tikosyn therapy: (3) SOB (shortness of breath): (4) Anticoagulated: (5) Chronic heart failure with preserved ejection fraction (HFpEF): (6) COPD (chronic obstructive pulmonary disease): (7) Tachy-corin syndrome: (8) Hyperlipidemia: Symptoms already improving Tolerating Tikosyn loading very well without significant prolongation of her QTc interval or any ventricular arrhythmias or significant ectopy on telemetry. Device interrogation reveals the patient spontaneously converted to normal sinus rhythm and is now atrially paced. Cardioversion canceled. We will continue to monitor after 6 doses of Tikosyn administered, sixth dose will be given in the a.m. of 02/14/2021. Please call cardiology with QTC results of serial EKGs. Continue outpatient doses of metoprolol, Lasix and warfarin, goal INR remains 2- 3. Tikosyn protocol is as follows: to be directed by Cardiology. QTc interval should be measured 2 to 3 hours after the initial dose. If the QTc interval increases to more than 15% above baseline QTc or if the QTc is >500 msec (>550 msec in patients with ventricular conduction abnormalities), dofetilide dose should be reduced by 50%. If the starting dose was 500 mcg twice daily, then reduce to 250 mcg twice daily. If the starting dose was 250 mcg twice daily, then reduce to 125 mcg twice daily. If the starting dose was 125 mcg twice daily, then reduce to 125 mcg once daily. QTc interval should be measured 2 to 3 hours after each subsequent dose (in-hospital doses 2 through 5). If at any time after the second dose the QTc is >500 msec (>550 msec in patients with ventricular conduction abnormalities), dofetilide should be discontinued. Admission and Anticipated Discharge Date Admission Date: February 11, 2021 Subjective Patient seen and examined, chart reviewed. States that she is feeling okay overnight. A little tired from lack of sleep but notices that her breathing continues to improve. Denies palpitations and also denies any chest pain, lightheadedness or dizziness. Telemetry reviewed: Atrial paced overnight. Device interrogated and confirmed that the patient is in sinus rhythm currently. Cardioversion canceled. Review of Systems Review of Systems: All systems reviewed & are unremarkable except as noted in HPI & below Physical Exam Physical Exam: General: Awake, alert and oriented x 3. No acute distress. HEENT: Normocephalic, atraumatic. Pupils equal, round and reactive to light and accommodation. Extraocular muscles are intact. Anicteric sclera. Moist mucous membranes. Neck: No JVD. No bruit. Cardiovascular: irregularly irregular, unable to appreciate murmur, rub or gallop. Pulmonary: Clear to auscultation bilaterally. No rales, rhonchi, or wheezing. Abdomen: Bowel sounds x 4, soft. No rebound, guarding or tenderness. No organomegaly. Extremities: No clubbing, cyanosis or edema. +2 pedal pulses bilaterally. Skin: Warm and dry. Results & Data ([facility]) Vital Signs (Past 12 Hours) Vital Signs Temp Pulse Resp BP Pulse Ox 02/13/21 08:35 36.7 C 77 16 104/72 93 02/13/21 03:53 37 C 76 22 140/81 93 02/13/21 03:05 36.6 C 73 16 101/64 98 02/12/21 23:12 36.8 C 71 18 97/60 L 96
--- NOTE | 2021-02-13 12:57 | Electrocardiogram Report ---
Test Reason : Blood Pressure : / mmHG Vent. Rate : 076 BPM Atrial Rate : 063 BPM P-R Int : 252 ms QRS Dur : 096 ms QT Int : 430 ms P-R-T Axes : 025 -23 004 degrees QTc Int : 483 ms Atrial-paced rhythm with prolonged AV conduction Septal infarct (cited on or before 12-FEB-2021) Abnormal ECG When compared with ECG of 12-FEB-2021 12:26, No significant change was found Confirmed by Gutierrez Mistry ([id number]) on 02/13/2021 12:56:58 PM Referred By: Terry Menchaca Confirmed By:Gutierrez Mistry
--- NOTE | 2021-02-13 16:34 | Hospitalist Progress Note ---
Date of Service February 13, 2021 Assessment & Plan (1) A-fib: This is a 70-year-old female who has significant past medical history of persistent atrial fibrillation anticoagulated on warfarin, tachybrady syndrome status post PPM, diastolic CHF, history of gastric bypass, COPD, depression who presents to ED at the referral cardiology clinic for Tikosyn initiation. Appreciated from cardiology Tolerating Tikosyn loading very well without significant prolongation of QTc interval Device interrogation reveals the patient spontaneously converted to normal sinus rhythm and is now atrially paced. Cardioversion canceled. Patient will need continued monitoring and evaluation advisor for total 6 doses of Tikosyn Last dose will be given in the a.m. of 02/14/2021. Patient will be discharged home tomorrow if EKG shows no prolongation of QTC (2) Chronic heart failure with preserved ejection fraction (HFpEF): Last echocardiogram 08/2020 revealed EF 55 to 59%, severely dilated left atrium and right atrium, grade 2 diastolic dysfunction, mild MR, moderate TR Continue metoprolol and Lasix stable vol status (3) Tachy-corin syndrome: s/p PPM Device interrogation shows patient spontaneously converted to normal sinus (4) Anemia: H&H 9.9 and 30.1 Normocytic normochromic On iron supplements Stable, monitor, no signs of bleeding last anemia w/u in 2018 revealed normal ferritin, b12, folic acid likely in setting of chronic disease (5) COPD (chronic obstructive pulmonary disease): No acute exacerbation Continue Advair, as needed albuterol, Accolate (6) Dizziness: No further symptoms (7) DVT prophylaxis: warfarin Dispo: Plan to discharge home tomorrow PCP:Dr Olvera FULL CODE Admission and Anticipated Discharge Date Admission Date: February 11, 2021 Subjective Patient has been doing well, no shortness of breath, no chest pain or palpitation Did not require DC cardioversion as she was converted to sinus with medication Patient will need continued hospital stay to complete antiarrhythmic load Possible discharge home tomorrow Denies of any shortness of breath, no fever chills, no cough Currently comfortable offers no complaint Review of Systems Review of Systems: All systems reviewed & are unremarkable except as noted in Subjective Physical Exam Physical Exam: Physical exam: General: No acute distress, alert awake oriented x3 HEENT: PERRLA, EOMI, Heart: Regular, trace bilateral lower extremity edema Lungs: Clear to auscultate, no wheeze or rales Abdomen: Soft nontender, no organomegaly Extremity: No cyanosis, no deformity, normal strength 5 out of 5 with upper and lower Neuro: No focal neurological deficit normal speech, normal visual field, Motor strength : normal both upper and lower extremity, sensation intact Psych: Alert awake oriented x3, normal affect Results & Data Results & Data ([facility]) Vital Signs (Past 12 Hours) Vital Signs Temp Pulse Resp BP Pulse Ox 02/13/21 15:23 36.5 C 76 16 105/69 98 02/13/21 11:51 36.4 C L 72 16 117/79 97 02/13/21 08:35 36.7 C 77 16 104/72 93
[2021-02-13] MEDS: WARFARIN SOD 1 MG TAB PO SCH (17:21)
[2021-02-13] MEDS: METOPROLOL SUCC 25MG EXT REL TAB PO SCH (20:43)
[2021-02-14] MEDS: POTASSIUM CHLORIDE CRTAB 20 MEQ TABCR PO SCH (08:18)
[2021-02-14] MEDS: MULTIVITAMIN CHEWABLE TAB PO SCH (08:18)
[2021-02-14] MEDS: SERTRALINE HCL 50 MG TABLET PO SCH (08:18)
[2021-02-14] MEDS: CHOLECALCIFEROL 1,000 UNITS 25 MCG TAB PO SCH (08:18)
[2021-02-14] MEDS: MAGNESIUM OXIDE 400 MG TAB PO SCH (08:19)
[2021-02-14] MEDS: FERROUS SULFATE 325 MG TAB PO SCH (08:19)
[2021-02-14] MEDS: FUROSEMIDE 40 MG TAB PO SCH (08:19)
[2021-02-14] MEDS: FLUTICASONE/VILANTEROL 100/25MCG 14 PUFFS/INHALER INH SCH (08:20)
[2021-02-14] MEDS: TRIAMCINOLONE ACET 0.1% CR 15 GM TUBE TOP SCH (08:21)
[2021-02-14] MEDS: METOPROLOL SUCC 50MG EXT REL TAB PO SCH (08:21)
[2021-02-14] MEDS: ASCORBIC ACID 500 MG TAB PO SCH (09:03)
[2021-02-14] MEDS: DOFETILIDE 125 MCG CAPSULE PO SCH (09:04)
--- NOTE | 2021-02-14 10:15 | Discharge Summary ---
Date of Service February 14, 2021 Admission HPI Per Admitting Provider This is a 70-year-old female who has significant past medical history of persistent atrial fibrillation anticoagulated on warfarin, tachybrady syndrome status post PPM, diastolic CHF, history of gastric bypass, COPD, depression who presents to ED at the referral cardiology clinic for Tikosyn initiation. She was seen and evaluated in cardiology clinic on 02/05 with complaint of increasing shortness of breath, fatigue and a 6 pound weight gain. She was instructed to increase her Lasix to 40 mg twice daily for 3 days and return to 40 mg daily. Of significance she did have a pacemaker interrogation on 01/29 which revealed 100% afib burden with heart rate 90 to 150 bpm. Patient has prior history of A. fib requiring cardioversion and sotalol initiation on 04/2020 with repeat cardioversion on 08/2020. During office visit she was instructed to stop sotalol, increase metoprolol tartrate direct admission to be arranged to initiate Tikosyn. She continues to feel shortness with exertion. She walks at [employer] and states when working she becomes very winded requiring her to rest. She denies any shortness of breath at rest. She also complains of increased fatigue and lower extremity edema. Her weight is approximately 137 pounds. She feels her swelling is the same as it has been for the last several months. She denies any recent fever, chills, sweats, lightheadedness, syncope, chest pain, palpitations nausea, vomiting, abdominal pain. She does complain of intermittent dizziness and feeling off balance. She had 2 falls in December, the first resulting in a fractured rib. She also elicits to loose stool ever since having her revised gastric bypass. She denies any change in urination including dysuria, increased urgency or frequency with urination, melena or hematochezia. Her appetite remains stable. The only medication she took this morning was metoprolol. She has since stopped taking sotalol per cardiology recommendations. Principal Diagnosis A. fib RVR Discharge Exam Physical exam: General: No acute distress, alert awake oriented x3 HEENT: PERRLA, EOMI, Heart: Regular S1-S2, no carotid bruit, no JVD, no lower extremity edema Lungs: Clear to auscultate, no wheeze or rales Abdomen: Soft nontender, no organomegaly Extremity: No cyanosis, no deformity, normal strength 5 out of 5 with upper and lower Neuro: No focal neurological deficit normal speech, normal visual field, Motor strength : normal both upper and lower extremity, sensation intact Psych: Alert awake oriented x3, normal affect Discharge Data Allergies Allergy/AdvReac Type Severity Reaction Status Date / Time oxycodone AdvReac Intermediate GI SYMPTOMS Verified 02/11/21 13:19 Consultations 02/11/21 12:52 ED Decision to Admit Stat 02/11/21 12:52 Consult Cardiology Routine Procedures Performed Operation Date: 02/12/21 10:00 <No data on this case meets the specified criteria> Operation Date: 02/13/21 10:00 <No data on this case meets the specified criteria> Hospital Course (1) A-fib: This is a 70-year-old female who has significant past medical history of persistent atrial fibrillation anticoagulated on warfarin, tachybrady syndrome status post PPM, diastolic CHF, history of gastric bypass, COPD, depression who presents to ED at the referral cardiology clinic for Tikosyn initiation. Appreciated from cardiology Tolerating Tikosyn loading very well without significant prolongation of QTc interval Tikosyn 500 mg twice daily during this hospital stay Device interrogation reveals the patient spontaneously converted to normal sinus rhythm and is now atrially paced. Cardioversion canceled. Patient received 6 dose of Tikosyn today morning, EKG and telemetry reviewed by cardiology No acute change, Patient will be discharged home with reduced dose of Tikosyn to 250 mg twice daily Will be followed up with cardiology in clinic (2) Chronic heart failure with preserved ejection fraction (HFpEF): Last echocardiogram 08/2020 revealed EF 55 to 59%, severely dilated left atrium and right atrium, grade 2 diastolic dysfunction, mild MR, moderate TR Continue metoprolol and Lasix stable vol status (3) Tachy-corin syndrome: s/p PPM Device interrogation shows patient spontaneously converted to normal sinus Did not require cardioversion (4) Anemia: H&H 9.9 and 30.1 Normocytic normochromic On iron supplements Stable, monitor, no signs of bleeding last anemia w/u in 2019 revealed normal ferritin, b12, folic acid likely in setting of chronic disease Stable (5) COPD (chronic obstructive pulmonary disease): Stable No acute exacerbation Continue Advair, as needed albuterol, Accolate (6) Dizziness: Possible secondary to cardiac arrhythmia, symptom has resolved after normal heart rate and rhythm Had no further symptoms during hospital stay, stable to be discharged home today (7) DVT prophylaxis: warfarin Dispo: Patient is discharged home today, PCP:Dr Olvera FULL CODE Total Time Total Time Spent Total Time Spent (In Minutes): Approximately 35 minutes Total Time Includes: Examination of the Patient, Discharge Planning, Medication Reconciliation and Communication With Other Providers Discharge Plan Discharge Items Patient Disposition: Home - Self-Care Reason For Visit: AFIB Discharge Diagnosis: Aib RVR Activity: Resume your previous activity Non-emergency contact: Primary Care Provider Call non-emergency contact if: you have any medication questions Follow-up/Referrals: Terry Menchaca DO [Physician] - Russell Olvera DO [Primary Care Provider] - (hospital follow up in a week ) Diet: Heart Healthy Addtl Attending Provider Instructions: Please take all medications as instructed on discharge list below. It is recommended that you follow-up with your primary care physician within 1-2 weeks of hospital discharge to ensure you are still doing well. Please call if you have any questions or problems. You can reach a [facility] hospitalist on duty at [facility] 24 hours a day by calling [phone] Pending Studies at Discharge: No Stand-Alone Forms: My [facility], Smoking Cessation Medications and DC Order Prescriptions: New dofetilide [Tikosyn] 125 mcg Capsule 250 mcg PO BID17 Qty: 60 RF: 0 Continued fluticasone propion-salmeterol [Advair Diskus] 250-50 mcg/dose Blister With Device 1 inh INHALATION BID RF: 0 warfarin 2.5 mg Tablet 2.5 mg PO DAILY@1600 RF: 0 albuterol sulfate [Ventolin HFA] 90 mcg/actuation Hfa Aerosol Inhaler 1 - 2 puff INHALATION QID PRN (Reason: Shortness Of Breath Or Wheezing) RF: 0 sertraline [Zoloft] 50 mg Tablet 50 mg PO QAM RF: 0 Flintstones Tab Chew 100 mcg Tablet,Chewable 1 tab PO QAM RF: 0 cholecalciferol (vitamin D3) [Vitamin D3] 2,000 unit Capsule 2,000 unit PO QAM RF: 0 magnesium oxide 400 mg (241.3 mg magnesium) Tablet 400 mg PO QAM Qty: 34 RF: 0 Vitron-C 65 mg iron- 125 mg Tablet,Delayed Release (Dr/Ec) 1 tab PO BID RF: 0 furosemide 20 mg tablet 40 mg PO DAILY RF: 0 triamcinolone acetonide 0.1 % Cream 1 applic TOPICAL BID RF: 0 metoprolol succinate 25 mg Tablet Extended Release 24 Hr 50 mg PO QAM RF: 0 metoprolol succinate 25 mg tablet extended release 24 hr 25 mg PO QPM RF: 0 zafirlukast [Accolate] 20 mg tablet 20 mg PO QAM RF: 0 Discharge Orders: Discharge Order (Routine); Ordered 02/14/21 Ordered By: Hannah Tomlinson/Other Patient Handouts: Eating Heart-Healthy Foods Admission Data Admit Date/Time: 02/11/21 12:52 Attending Provider: Hannah Abreu Admit Provider: Hima Mclain Primary Care Provider: Russell Olvera Other Providers: Terry Menchaca Satish K. Other Interventions: Discharge Summary Assessment (RN) Last Done: 02/14/21 09:23
--- NOTE | 2021-02-14 10:55 | Cardiology Progress Note ---
Date of Service February 14, 2021 Assessment & Plan (1) Atrial fibrillation with rapid ventricular response: (2) Visit for monitoring Tikosyn therapy: (3) Chronic heart failure with preserved ejection fraction (HFpEF): (4) COPD (chronic obstructive pulmonary disease): (5) Tachy-corin syndrome: The patient's Tikosyn is at 500 mcg twice daily. She has had a persistent but stable prolonged QT actually since admission. She does have a permanent pacemaker in place. I will reduce her Tikosyn to 250 mg twice daily. I think she can still be discharged as previously planned with outpatient follow-up. Admission and Anticipated Discharge Date Admission Date: February 11, 2021 Subjective No ongoing complaints today. The patient is anxious to go home. Review of Systems Review of Systems: All systems reviewed & are unremarkable except as noted in Subjective Physical Exam Physical Exam: General: no acute distress and stated age Head: normocephalic, no masses, lesions, tenderness or abnormalities Eyes: conjunctiva are pink and non-injected, sclera clear Neck: supple, no adenopathy, no bruits, normal jugular venous pulse, no hepatojugular reflux Chest: normal shape and normal respiratory effort Lungs: clear to auscultation and percussion Cardiac Exam: - regular rate & rhythm, no murmurs gallops or rubs - normal S1, normal S2 Pulses: 2(+) throughout Abdomen: abdomen soft, non-tender, no abnormal masses and no hepatosplenomegaly Musculoskeletal: no gait disturbance, no joint inflammation, no deforming arthritis Extremities: no edema and no cyanosis Neuro: grossly normal exam Results & Data ([facility]) Vital Signs (Past 12 Hours) Vital Signs Temp Pulse Pulse Resp BP Pulse Ox 02/14/21 09:23 36.9 C 76 16 104/63 104 H 02/14/21 07:47 36.9 C 76 16 104/63 104 H 02/14/21 07:00 72 02/13/21 23:09 36.8 C 70 13 97/69 L 97 Diagnostic Findings Reviewed the patient's telemetry. She is maintaining in a paced rhythm and no significant arrhythmias. Medications Administered Current Inpatient Medications Acetaminophen (Acetaminophen 325 Mg Tab) 650 mg PO Q4H PRN PRN Reason: Pain or Fever Stop: 03/13/21 16:23 Al Hydrox/Mg Hydrox/Simethicone (Aluminum/Magnesium Susp 30 Ml Udc) 15 ml PO Q4H PRN PRN Reason: Dyspepsia Stop: 03/13/21 16:23 Albuterol (Albuterol Hfa 8 Gm Inhaler) 2 puffs INH QIDR PRN PRN Reason: Shortness Of Breath Or Wheezing Stop: 03/13/21 16:23 Ascorbic Acid (Ascorbic Acid 500 Mg Tab) 250 mg PO BIDM [facility] Stop: 03/13/21 16:59 Last Admin: 02/14/21 09:03 Dose: 250 mg Documented by: Dofetilide (Dofetilide 125 Mcg Capsule) 250 mcg PO BID17 [facility] Stop: 03/16/21 16:59 Ferrous Sulfate (Ferrous Sulfate 325 Mg Tab) 325 mg PO BIDM [facility] Stop: 03/13/21 16:59 Last Admin: 02/14/21 08:19 Dose: 325 mg Documented by: Fluticasone/Vilanterol (Fluticasone/Vilanterol 100/25mcg 14 Puffs/Inhaler) 1 puffs INH DAILY [facility]; Protocol Stop: 03/14/21 08:59 Last Admin: 02/14/21 08:20 Dose: 1 puffs Documented by: Furosemide (Furosemide 40 Mg Tab) 40 mg PO DAILY [facility] Stop: 03/14/21 08:59 Last Admin: 02/14/21 08:19 Dose: 40 mg Documented by: Magnesium Hydroxide (Magnesium Hydroxide Susp 30 Ml Udc) 30 ml PO Q12H PRN PRN Reason: Constipation Stop: 03/13/21 16:23 Magnesium Oxide (Magnesium Oxide 400 Mg Tab) 400 mg PO QAM [facility] Stop: 03/14/21 08:59 Last Admin: 02/14/21 08:19 Dose: 400 mg Documented by: Metoprolol Succinate (Metoprolol Succ 50mg Ext Rel Tab) 50 mg PO QAM [facility] Stop: 03/14/21 08:59 Last Admin: 02/14/21 08:21 Dose: 50 mg Documented by: Metoprolol Succinate (Metoprolol Succ 25mg Ext Rel Tab) 25 mg PO QPM [facility] Stop: 03/13/21 20:59 Last Admin: 02/13/21 20:43 Dose: 25 mg Documented by: Miscellaneous (Zafirlukast: Order Awaiting Action) 1 ea N/A QS [facility] Stop: 03/14/21 00:00 Last Admin: 02/14/21 08:19 Dose: Not Given Documented by: Multivitamins/Folic Acid/Vitamin C ([facility]ivitamin Chewable Tab) [facility] [place]: 03/14/21 08:59 Last Admin: 02/14/21 08:18 Dose: 1 tab Documented by: Polyethylene Glycol (Polyethylene (Miralax) 17 Gm Pack) 17 gm PO DAILY PRN PRN Reason: Constipation Stop: 03/13/21 16:23 Potassium Chloride (Potassium Chloride Crtab 20 Meq Tabcr) 20 meq PO BID17 [facility] Stop: 03/13/21 16:59 Last Admin: 02/14/21 08:18 Dose: 20 meq Documented by: Sertraline HCl (Sertraline Hcl 50 Mg Tablet) [address] [facility] Stop: 03/14/21 08:59 Last Admin: 02/14/21 08:18 Dose: 50 mg Documented by: Triamcinolone Acetonide (Triamcinolone Acet 0.1% Cr 15 Gm Tube) 1 appln TOP BID [facility] Stop: 03/13/21 20:59 Last Admin: 02/14/21 08:21 Dose: 1 appln Documented by: Vitamin D (Cholecalciferol 1,000 Units 25 Mcg Tab) 2,000 [facility] [place]: 03/14/21 08:59 Last Admin: 02/14/21 08:18 Dose: 2,000 units Documented by: Warfarin Sodium (Warfarin Sod 1 Mg Tab) 1 mg PO DAILY@1600 [facility] Stop: 03/13/21 16:59 Last Admin: 02/13/21 17:21 Dose: 1 mg Documented by:
--- NOTE | 2021-02-14 10:57 | Communication Note ---
Date of Service: February 14, [address] Fowler, patient will be discharged on reduced dose of Tikosyn to 250 mg twice daily Was on 500 mg twice daily during hospital stay New prescription sent to patient's pharmacy at [facility], pharmacy updated regarding the medication dose change Hannah Abreu MD
[2021-02-14] MEDS ORDERED: DOFETILIDE 125 MCG CAPSULE PO SCH (17:00)
== END 2021-02-14 10:59 | disposition home or self-care (01) | DRG 309 ==
LOC: ED 09:57 → SUATTDRO 12:52 → 2S 12:52

== ENCOUNTER 2021-03-27 12:50 | Inpatient (IN) ==
--- NOTE | 2021-03-27 15:16 | Emergency Department Note ---
Impression & Plan CHF (congestive heart failure), A-fib, SOB (shortness of breath), Weakness ED Provider Note INFORMANT: Patient ED PROVIDER(S): Hiren Romo MD CHIEF COMPLAINT: CHF PLAN: Disposition: Admitted Condition: Good Outpatient prescription management: none Referral: None MEDICAL DECISION MAKING: Patient presented to the ER by direction of cardiology. They were concerned about worsening CHF. The patient does have peripheral edema on physical examination. Vital signs stable. Twelve-lead ECG showed atrial fibrillation but no cute ischemia. Her CBC and chemistry panel were unremarkable. She has a therapeutic INR. Her BNP is elevated consistent with CHF. Troponin negative. Consultation was made with the [facility] service. The case was discussed. The patient will be admitted by Dr. Mclain. Triage Nursing notes reviewed and agree them. Vital Signs: reviewed and remarkable for no significant abnormalities Differential diagnosis: Reactive airway disease, pneumonia, pneumothorax, COPD, CHF, infections, cardiac ischemia, pulmonary embolism, musculoskeletal, gastrointestinal, as well as other pathologies. Diagnostics interpreted by me: ECG: Twelve-lead ECG reveals atrial fibrillation at 96 bpm. There is an occasional ventricular paced rhythm. Left axis deviation. Low voltage QRS. No evidence of ST elevation. No PVCs. Cardiac Monitoring: Cardiac monitoring ordered by me: The patient was placed on continuous cardiac monitoring and observed. It revealed a atrial fibrillation at 80 beats per minute without ectopy or evidence of dysrhythmia. Imaging studies: Chest x-ray shows some cardiomegaly but no acute findings. HPI: The patient is a 70 year old female who presents to the Emergency Room with complaints of SOB. This started a week ago and is worsening. The patient also notes the following associated symptoms, SUTTON, significant LE swelling and gene ralized weakness. Her cardiology group referred her to the ER for admission. The patient has been using lasix relieving factors. Current pain is rated as 0/10. [employer] told her she needs a new wire on the pacer. Pt denies LOC, headache, fevers, chills, diaphoresis, visual changes, neck pain, chest pain, nausea, vomiting, abdominal pain, back pain, melena, hematochezia, urinary symptoms, numbness, lymphadenopathy, rash, or other complaints. ROS: See above HPI for pertinent positives & negatives. A total of 10 systems reviewed and were otherwise negative. PAST MEDICAL HISTORY:See Below , CHF PAST SURGICAL HISTORY:See Below, Afib FAMILY HISTORY:See Below SOCIAL HISTORY:See Below, retired HOME MEDICATIONS:See Below ALLERGIES:See Below VITALS:See Below PHYSICAL EXAMINATION: GENERAL: Awake, tired-appearing, in no distress HENT: Normocephalic, atraumatic. Oropharynx unremarkable. EYES: Normal conjunctiva. Sclera non-icteric. NECK: Inspection normal. Non-tender. Supple. No nuchal rigidity. FROM. No masses. RESPIRATORY: Clear to auscultation. No wheezes. No rales. Normal respiratory effort. CARDIAC: Normal rate. Irregular rhythm. No murmurs. No rubs. Extremities warm and well perfused. Pulses equal. No JVD. GI: Soft, non-distended. No tenderness to palpation. No rebound or guarding. No masses. RECTAL: Deferred. MUSCULOSKELETAL: Atraumatic. Chest examination reveals no tenderness. The back is symmetrical on inspection without obvious abnormality. There is no CVA tenderness to palpation. No joint edema. LOWER EXTREMITIES: Calves are equal size bilaterally and non-tender. 3+ edema. No discoloration. NEURO: Normal sensorium. No sensory or motor deficits noted. SKIN: No rash or jaundice noted. Hiren Romo MD Past Med/Surg History Medical History A-fib S/P DANAE guided DCCV 10/2018. Reverted back to afib 03/2020. External DCCV 04/23/20. 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 Surgical History H/O colonoscopy H/O gastric bypass H/O hernia repair H/O ventral hernia repair History of cholecystectomy Pacemaker LAST CHECK AUG 2020 S/P appendectomy S/P small bowel resection Family History Other Cancer Hypertension Lung disease Social History Smoking Status: Never smoker Second Hand Exposure: Yes ( smokes currently); Do You Dip or Chew Tobacco: No; Hx Alcohol Use: Yes Alcohol type: beer Alcohol Intake Frequency: Monthly or Less Hx Substance Use: No Preferred Language: Greek Communication Ability: Effective [employer] Intermediary Required: No Beliefs That Will Affect Care: None Current Living Situation: Spouse current occupational status: employed Other Information That Helps Us Care for You: No Feels Safe at Home: Yes Safety Concerns: Feels Safe At This Time Assistive Devices: Glasses Allergies Allergies Allergy/AdvReac Type Severity Reaction Status Date / Time oxycodone AdvReac Intermediate GI SYMPTOMS Verified 02/11/21 13:19 Home Meds Home Medications Medication Instructions Recorded Confirmed Flintstones Tab Chew 1 tab PO QAM 07/20/18 03/27/21 albuterol sulfate [Ventolin HFA] 2 puff INHALATION QID PRN 07/20/18 03/27/21 cholecalciferol (vitamin D3) 2,000 unit PO QAM 07/20/18 03/27/21 [Vitamin D3] fluticasone propion-salmeterol 1 inh INHALATION BID 07/20/18 03/27/21 [Advair Diskus] sertraline [Zoloft] 50 mg PO QAM 07/20/18 03/27/21 warfarin 2.5 mg PO DAILY@1600 07/20/18 03/27/21 zafirlukast [Accolate] 20 mg PO BID 12/25/20 03/27/21 Vitron-C 1 tab PO BID 02/11/21 03/27/21 furosemide 40 mg PO DAILY 03/27/21 03/27/21 metoprolol succinate 50 mg PO BID 03/27/21 03/27/21 Previous Rx's Medication Instructions Recorded magnesium oxide 400 mg PO QAM #34 tab 04/23/20 Results & Data (ED) Vital Signs Vital Signs - 24 hr 03/27/21 13:07 03/27/21 16:00 Temperature 36 C L Temperature Source Temporal Artery Scan Pulse Rate 77 Respiratory Rate 18 20 Respiratory Effort / Characteristics Non-Labored Respiratory Depth Normal Blood Pressure 115/73 112/83 Blood Pressure Mean 87 Pulse Oximetry 97 Oxygen Delivery Method Room Air Sepsis Recent Fever Within 48 Hours No Sepsis New/Unexplained Change in Mental Status No Sepsis Action Taken by Nursing No Action Required Laboratory Data Result diagrams: 03/27/21 15:25 03/27/21 15:25 Lab Results 03/27/21 03/27/21 03/27/21 Range/Units 15:25 15:25 15:26 WBC 5.96 (4.8-10.8) K/uL RBC 3.54 L (4.2-5.4) M/uL Hgb 11.1 L (12.0-16.0) g/dL Hct 33.6 L (37-47) % MCV 94.9 (80-100) fL MCH 31.4 (25-34) pg MCHC 33.0 (32-36) g/dL RDW Std Deviation 54.9 H (36.4-46.3) fL RDW Coeff of Saman 16.0 H (11.5-14.5) % Plt Count 244 (130-400) K/uL MPV 10.0 (7.4-10.4) fL Immature Gran % (Auto) 0.2 % Neut % (Auto) 66.5 % Lymph % (Auto) 22.7 % [place] % (Auto) 6.4 % Eos % (Auto) 4.0 % Baso % (Auto) 0.2 % Neut # (Auto) 3.97 (1.4-6.5) K/uL Lymph # (Auto) 1.35 (1.2-3.4) K/uL [place] # (Auto) 0.38 (0.11-0.59) K/uL Eos # (Auto) 0.24 (0-0.5) K/uL Baso # (Auto) 0.01 (0-0.2) K/uL Immature Gran # (Auto) 0.01 (0.00-0.02) K/uL PT (9.0-12.0) Seconds INR (0.9-1.1) Sodium 143 (136-145) mmol/L Potassium 3.5 (3.5-5.1) mmol/L Chloride 110 H (98-107) mmol/L Carbon Dioxide 28 (21-32) mmol/L Anion Gap 5.0 (3-11) BUN 15 (7-18) mg/dl Creatinine 0.65 (0.6-1.2) mg/dl Est Cr Clr Drug Dosing 69.0 ml/min Est GFR ( Amer) 105.7 ml/min Est GFR (Non-Af Amer) 91.2 ml/min BUN/Creatinine Ratio 23.9 H (10-20) Glucose 78 (70-99) mg/dl Calcium 8.2 L (8.5-10.1) mg/dl Magnesium 2.1 (1.8-2.4) mg/dl Total Bilirubin 0.9 (0.2-1) mg/dl AST 25 (15-37) U/L ALT 29 (12-78) U/L Alkaline Phosphatase 125 H (45-117) U/L Troponin I < 0.015 (0-0.045) ng/ml NT-Pro-B Natriuret Pep 3150 H (0-900) pg/ml Total Protein 6.2 L (6.4-8.2) gm/dl Albumin 2.9 L (3.4-5.0) gm/dl Globulin 3.3 (2.5-4.0) gm/dl Albumin/Globulin Ratio 0.9 (0.9-2) COVID-19 Eval Order Covid19 at [facility] SARS-CoV-2 (PCR) (Negative) 03/27/21 03/27/21 Range/Units 15:26 15:26 WBC (4.8-10.8) K/uL RBC (4.2-5.4) M/uL Hgb (12.0-16.0) g/dL Hct (37-47) % MCV (80-100) fL MCH (25-34) pg MCHC (32-36) g/dL RDW Std Deviation (36.4-46.3) fL RDW Coeff of Saman (11.5-14.5) % Plt Count (130-400) K/uL MPV (7.4-10.4) fL Immature Gran % (Auto) % Neut % (Auto) % Lymph % (Auto) % [place] % (Auto) % Eos % (Auto) % Baso % (Auto) % Neut # (Auto) (1.4-6.5) K/uL Lymph # (Auto) (1.2-3.4) K/uL [place] # (Auto) (0.11-0.59) K/uL Eos # (Auto) (0-0.5) K/uL Baso # (Auto) (0-0.2) K/uL Immature Gran # (Auto) (0.00-0.02) K/uL PT 32.4 H (9.0-12.0) Seconds INR 3.5 H (0.9-1.1) Sodium (136-145) mmol/L Potassium (3.5-5.1) mmol/L Chloride (98-107) mmol/L Carbon Dioxide (21-32) mmol/L Anion Gap (3-11) BUN (7-18) mg/dl Creatinine (0.6-1.2) mg/dl Est Cr Clr Drug Dosing ml/min Est GFR ( Amer) ml/min Est GFR (Non-Af Amer) ml/min BUN/Creatinine Ratio (10-20) Glucose (70-99) mg/dl Calcium (8.5-10.1) mg/dl Magnesium (1.8-2.4) mg/dl Total Bilirubin (0.2-1) mg/dl AST (15-37) U/L ALT (12-78) U/L Alkaline Phosphatase (45-117) U/L Troponin I (0-0.045) ng/ml NT-Pro-B Natriuret Pep (0-900) pg/ml Total Protein (6.4-8.2) gm/dl Albumin (3.4-5.0) gm/dl Globulin (2.5-4.0) gm/dl Albumin/Globulin Ratio (0.9-2) COVID-19 Eval Order SARS-CoV-2 (PCR) NEGATIVE (Negative) Administered Medications Metoprolol Succinate (Metoprolol Succ 50mg Ext Rel Tab) 50 mg PO BID ISHAN Stop: 04/26/21 20:59 Last Admin: 03/27/21 20:58 Dose: 50 mg Documented by: [id number] Discontinued Medications Furosemide (Furosemide 40 Mg/4 Ml Vial) 40 mg IV ONE ONE Stop: 03/27/21 20:31 Last Admin: 03/27/21 20:58 Dose: 40 mg Documented by: [id number] Potassium Chloride (Potassium Chloride Crtab 20 Meq Tabcr) 40 meq PO NOW STA Stop: 03/27/21 20:05 Last Admin: 03/27/21 20:58 Dose: 40 meq Documented by: [id number] Imaging Data Radiologist's Impression: Chest X-Ray 03/27/21 14:42 XR chest 1V portable CLINICAL HISTORY: Dyspnea COMPARISON STUDY: Chest CT December 25, 2020. Chest radiograph February 03, 2021. FINDINGS: Lung volumes are normal. Lungs are clear. There is no pneumothorax or pleural effusion. Cardiac size is normal. Mediastinal contours are normal. There is no evidence for pulmonary edema. Dual-lead left subclavian pacemaker is in place. IMPRESSION: No acute cardiopulmonary findings. No change in appearance of the chest. ACT 112: Negative or not required by law. Electronically signed by: Salomon Amezcua M.D. 03/27/2021 3:47 PM Discharge Plan Visit Data Chief Complaint: Cardiac Assessment Stated Complaint: CHEST PAIN, SWELLING TO LEGS ED Provider: Hiren Romo Discharge Problem: CHF (congestive heart failure), A-fib, SOB (shortness of breath), Weakness Patient Disposition: Admitted As Inpatient Discharge Instructions Interventions: ED Discharge Assessment Last Done: 03/27/21 16:00
[2021-03-27 15:34] LABS: Basophils # (auto) 0.01 K/uL (0-0.2); Basophils % (auto) 0.2 %; Eosinophils # (auto) 0.24 K/uL (0-0.5); Hematocrit (blood only) 33.6 % (37-47); Hemoglobin 11.1 g/dL (12.0-16.0); Immature Granulocytes # (auto) 0.01 K/uL (0.00-0.02); Immature Granulocytes % (auto) 0.2 %; Lymphocytes # (auto) 1.35 K/uL (1.2-3.4); Lymphocytes % (auto) 22.7 %; Mean Corpuscular Hemoglobin 31.4 pg (25-34); Mean Corpuscular Volume 94.9 fL (80-100); Monocytes # (auto) 0.38 K/uL (0.11-0.59); Monocytes % (auto) 6.4 %; Neutrophils # (auto) 3.97 K/uL (1.4-6.5); Neutrophils % (auto) 66.5 %; Platelet Count 244 K/uL (130-400); RDW Standard Deviation 54.9 fL (36.4-46.3); Red Blood Count 3.54 M/uL (4.2-5.4); White Blood Count 5.96 K/uL (4.8-10.8)
--- NOTE | 2021-03-27 15:48 | XRay Report ---
XR chest 1V portable CLINICAL HISTORY: Dyspnea COMPARISON STUDY: Chest CT December 25, 2020. Chest radiograph February 03, 2021. FINDINGS: Lung volumes are normal. Lungs are clear. There is no pneumothorax or pleural effusion. Car diac size is normal. Mediastinal contours are normal. There is no evidence for pulmonary edema. Dual- lead left subclavian pacemaker is in place. IMPRESSION: No acute cardiopulmonary findings. No change in appearance of the chest. ACT 112: Negative or not required by law. Electronically signed by: Salomon Amezcua M.D. 03/27/2021 3:47 PM
[2021-03-27 15:54] LABS: Alanine Aminotransferase 29 U/L (12-78); Albumin Level 2.9 gm/dl (3.4-5.0); Aspartate Aminotransferase 25 U/L (15-37); BUN Creatinine Ratio 23.9 (10-20); Blood Urea Nitrogen 15 mg/dl (7-18); Calcium 8.2 mg/dl (8.5-10.1); Carbon Dioxide 28 mmol/L (21-32); Chloride 110 mmol/L (98-107); Est GFR (African American) 105.7 ml/min; Est GFR (Non-African American) 91.2 ml/min; Glucose 78 mg/dl (70-99); Magnesium 2.1 mg/dl (1.8-2.4); Potassium 3.5 mmol/L (3.5-5.1); Sodium 143 mmol/L (136-145)
[2021-03-27 15:59] LABS: Albumin Globulin Ratio 0.9 (0.9-2); Alkaline Phosphatase 125 U/L (45-117); Bilirubin,Total 0.9 mg/dl (0.2-1); Globulin 3.3 gm/dl (2.5-4.0); NT Pro B Type Natriuretic Pept 3150 pg/ml (0-900); Total Protein 6.2 gm/dl (6.4-8.2); Troponin I < 0.015 ng/ml (0-0.045)
[2021-03-27 16:10] LABS: INR 3.5 (0.9-1.1); Prothrombin Time 32.4 Seconds (9.0-12.0)
[2021-03-27] MEDS ORDERED: FUROSEMIDE 40 MG/4 ML VIAL IV STA (16:40)
--- NOTE | 2021-03-27 16:56 | History & Physical Report ---
Date of Service March 27, 2021 Assessment & Plan (1) Acute on chronic diastolic (congestive) heart failure: Pt is 70 y/o F with PMH persistent atrial fibrillation, on warfarin, s/p DANAE guided DCCV in 10/2018 with recurrent atrial fibrillation s/p cardioversion 05/05/2020, 09/05/2020 with recurrent atrial fibrillation 12/2020, tachybrady syndrome s/p PPM, diastolic CHF, history of gastric bypass, COPD, depression who presented to ED at the referral of cardiology clinic for BLE edema. 10 pound weight gain, BLE edema x 1 month. Today initial troponin negative, BNP: 3150, CXR: No acute cardiopulmonary findings Last echo: EF 55%, severely dilated left atrium and right atrium, grade 2 diasto lic dysfunction, mild MR, moderate TR -Hold home lasix -Lasix 40mg IV BID -Potassium supplement -Daily weights, strict I's and O's, fluid restriction 1800ml, low sodium diet -Cardiology consult (2) A-fib: On Coumadin S/P DANAE guided DCCV in 10/2018 with recurrent atrial fibrillation, s/p cardioversion 05/05/2020, 09/05/2020 with recurrent atrial fibrillation 12/2020. 02/04 sotalol discontinued. Recent hospitalization for Tikosyn. Tikosyn discontinued 02/2021. Pacemaker interrogation today in cardiology clinic revealed atrial fibrillation with RVR 130 for the past month. Dr Ivey's office note reported pt may need an upgrade to BiV ppm and AVN ablation Patient currently rate controlled -INR:3.5, hold Coumadin tonight -Continue metoprolol -Cardiology consult (3) Supratherapeutic INR: INR: 3.5 -Hold Coumadin tonight -INR in a.m. (4) Tachy-corin syndrome: s/p PPM Pacemaker interrogation in clinic today revealed atrial fibrillation with RVR 130 for the past month Follows with Dr. Ivey . Her office note reported pt may need an upgrade to BiV ppm and AVN ablation (5) COPD (chronic obstructive pulmonary disease): No acute exacerbation -Continue Advair, as needed albuterol, Accolate (6) Anemia: Hgb: 11. Hgb: 9 and 01/2021 No signs of bleeding -Continue iron supplement DVT Prophylaxis -On Coumadin, currently INR supratherapeutic Disposition PCU Full code as per discussion with pt Follows with Dr Olvera for routine care Pt was seen and care coordinated with Dr Mclain. See addendum Admission and Anticipated Discharge Date Admission Date: March 27, 2021 History of Present Illness Chief Complaint: BLE edema Primary Care Provider: Russell Olvera, Pt is 70 y/o F with PMH persistent atrial fibrillation, on warfarin, s/p DANAE guided DCCV in 10/2018 with recurrent atrial fibrillation s/p cardioversion 05/05/2020, 09/05/2020 with recurrent atrial fibrillation 12/2020, tachybrady syndrome s/p PPM, diastolic CHF, history of gastric bypass, COPD, depression who presented to ED at the referral cardiology clinic for BLE edema. Patient with history recent hospitalization for initiation of Tikosyn. Patient had converted to NSR and was discharged on Tikosyn 250 mg twice daily secondary to borderline prolonged QTC. Since hospital discharge patient developed recurrent shortness of breath, dizziness that she usually has with atrial fibrillation. Had followed up with cardiology and was found to be back in A. fib. Patient reports chronic shortness of breath with exertion at baseline, does not feel she has increased shortness of breath. Does report 10 pound weight gain over the past month and also reports increased lower extremity edema over the past month. Patient states over the past week has had some weeping to BLE. Was seen by Dr. Ivey today. Pacemaker interrogation today revealed atrial fibrillation with RVR 130 for the past month. She was referred to ER for further evaluation and management of fluid overload. Denies fever/chills, diaphoresis, N/V/D/C, DANIEL, syncope, recent fall, vision changes, neck pain, CP, cough, sore throat, choking, otalgia, rhinorrhea, abdominal pain, paresthesias, rashes, urinary symptoms. Allergies Allergy/AdvReac Type Severity Reaction Status Date / Time oxycodone AdvReac Intermediate GI SYMPTOMS Verified 02/11/21 13:19 Home Medications Medication Instructions Recorded Confirmed Type Flintstones Tab Chew 1 tab PO QAM 07/20/18 03/27/21 History albuterol sulfate [Ventolin HFA] 2 puff INHALATION QID PRN 07/20/18 03/27/21 History cholecalciferol (vitamin D3) 2,000 unit PO QAM 07/20/18 03/27/21 History [Vitamin D3] fluticasone propion-salmeterol 1 inh INHALATION BID 07/20/18 03/27/21 History [Advair Diskus] sertraline [Zoloft] 50 mg PO QAM 07/20/18 03/27/21 History warfarin 2.5 mg PO DAILY@1600 07/20/18 03/27/21 History magnesium oxide 400 mg PO QAM #34 tab 04/23/20 03/27/21 Rx zafirlukast [Accolate] 20 mg PO BID 12/25/20 03/27/21 History Vitron-C 1 tab PO BID 02/11/21 03/27/21 History furosemide 40 mg PO DAILY 03/27/21 03/27/21 History metoprolol succinate 50 mg PO BID 03/27/21 03/27/21 History Past Med/Surg History Medical History A-fib S/P DANAE guided DCCV 10/2018. Reverted back to afib 03/2020. External DCCV 04/23/20. 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 Surgical History H/O colonoscopy H/O gastric bypass H/O hernia repair H/O ventral hernia repair History of cholecystectomy Pacemaker LAST CHECK AUG 2020 S/P appendectomy S/P small bowel resection Family History Other Cancer Hypertension Lung disease Social History Smoking Status: Former smoker Second Hand Exposure: Yes ( still smokes); Hx Alcohol Use: Yes Alcohol type: beer Alcohol Intake Frequency: Monthly or Less Hx Substance Use: No Preferred Language: Cuban Communication Ability: Effective Anthropological Linguist Required: No Beliefs That Will Affect Care: None Current Living Situation: Spouse current occupational status: employed Feels Safe at Home: Yes Assistive Devices: Hearing Aid - Bilateral Review of Systems Review of Systems: All systems reviewed & are unremarkable except as noted in HPI & below Physical Exam Physical Exam: General: no acute distress, WDWN Head: normocephalic, atraumatic Eyes: conjunctiva non-injected, anicteric ENT: normal inspection external ears, nose, mucous membranes moist Neck: supple, trachea midline Lungs: clear, no respiratory distress, no wheezing/rhonchi/rales CV: irregularly irregular, rate 78, 2-3+ edema BLE extending to thighs Abd: normal BS, soft, non-tender Ext: no cyanosis, no calf tenderness Neuro: A&O x 3, no focal deficits noted, normal affect Skin: warm, dry Results & Data Results & Data ([facility]) Vital Signs (Past 12 Hours) Vital Signs Temp Pulse Resp BP Pulse Ox 03/27/21 16:00 77 20 112/83 97 03/27/21 13:07 36 C L 18 115/73 Laboratory Results Short CBC 03/27/21 Range/Units 15:25 WBC 5.96 (4.8-10.8) K/uL Hgb 11.1 L (12.0-16.0) g/dL Hct 33.6 L (37-47) % Plt Count 244 (130-400) K/uL BMP 03/27/21 15:25 Sodium 143 Potassium 3.5 Chloride 110 H Carbon Dioxide 28 BUN 15 Creatinine 0.65 Glucose 78 Calcium 8.2 L Cardiac Enzymes 03/27/21 Range/Units 15:25 Troponin I < 0.015 (0-0.045) ng/ml Liver Function 03/27/21 Range/Units 15:25 Total Bilirubin 0.9 (0.2-1) mg/dl AST 25 (15-37) U/L ALT 29 (12-78) U/L Alkaline Phosphatase 125 H (45-117) U/L Albumin 2.9 L (3.4-5.0) gm/dl Diagnostic Findings Chest X-Ray 03/27/21 14:42 XR chest 1V portable CLINICAL HISTORY: Dyspnea COMPARISON STUDY: Chest CT December 25, 2020. Chest radiograph February 03, 2021. FINDINGS: Lung volumes are normal. Lungs are clear. There is no pneumothorax or pleural effusion. Cardiac size is normal. Mediastinal contours are normal. There is no evidence for pulmonary edema. Dual-lead left subclavian pacemaker is in place. IMPRESSION: No acute cardiopulmonary findings. No change in appearance of the chest. ACT 112: Negative or not required by law. Electronically signed by: Salomon Amezcua M.D. 03/27/2021 3:47 PM Supervising Physician Co-Signing Physician Notes Patient is a 70-year-old female with history of atrial fibrillation on Coumadin for anticoagulation, tachybradycardia syndrome S/P PPM, diastolic heart failure, COPD and other medical problems presents with history of worsening lower extremity edema. She admits to taking her Lasix regularly. States having dyspnea on exertion associated with some dizziness. Patient was evaluated by her movie editor and had pacemaker interrogation and was referred to ED for fluid overload management. Please review HPI for complete details of presentation. On exam patient is elderly,+ hearing impairment, no apparent distress, normocephalic atraumatic, moderately built and nourished, EOMI, lungs- normal breath sounds, clear to auscultation, no accessory muscle use, irregularly irregular, no murmur,+ left-sided pacemaker, abdomen soft, nontender, normal bowel sounds, alert, awake, oriented, moves all extremities,+3 + bilateral lower extremity,+ eczema. Patient is admitted for management of volume overload secondary to acute on chronic diastolic heart failure. Also noted supratherapeutic INR. Agree with holding p.o. Lasix and starting on IV 40 mg twice daily Lasix. Monitor I's and O's, daily weight, update echo, cardiology consulted. Agree with fluid restriction, low-sodium diet. Hold Coumadin secondary to supratherapeutic INR. I personally reviewed the record. Patient is interviewed and examined at bedside. Patient's care is coordinated with Laquita Funes PA-C. Please refer to the documentation above for details of patient's presentation and for discussion of other issues.
[2021-03-27] MEDS ORDERED: ALBUTEROL HFA 8 GM INHALER INH PRN (20:04)
[2021-03-27] MEDS ORDERED: POTASSIUM CHLORIDE CRTAB 20 MEQ TABCR PO STA (20:04)
[2021-03-27] MEDS ORDERED: FUROSEMIDE 40 MG/4 ML VIAL IV ONE (20:30)
[2021-03-27] MEDS: METOPROLOL SUCC 50MG EXT REL TAB PO SCH (20:58)
[2021-03-27] MEDS ORDERED: NON-FORMULARY MEDICATION (Iron,Carbonyl-Vitamin C [Vitron-C] 65 mg iron- 125 mg Tablet,Del PO SCH (21:00)
[2021-03-28] MEDS ORDERED: diphenhydrAMINE Capsule 25 MG CAP PO ONE (00:05)
[2021-03-28 06:32] LABS: Hematocrit (blood only) 30.9 % (37-47); Hemoglobin 10.1 g/dL (12.0-16.0); Mean Corpuscular Hemoglobin 31.6 pg (25-34); Mean Corpuscular Hgb Conc 32.7 g/dL (32-36); Mean Corpuscular Volume 96.6 fL (80-100); Mean Platelet Volume 10.1 fL (7.4-10.4); Platelet Count 237 K/uL (130-400); RDW Coefficient of Variation 16.2 % (11.5-14.5); RDW Standard Deviation 55.9 fL (36.4-46.3); White Blood Count 5.18 K/uL (4.8-10.8)
[2021-03-28 06:48] LABS: INR 3.6 (0.9-1.1); Prothrombin Time 32.9 Seconds (9.0-12.0)
[2021-03-28 07:04] LABS: BUN Creatinine Ratio 22.4 (10-20); Calcium 7.7 mg/dl (8.5-10.1); Creatinine Clr Calc Pharmacy 62.4 ml/min; Est GFR (African American) 103.7 ml/min; Est GFR (Non-African American) 89.4 ml/min; Magnesium 2.2 mg/dl (1.8-2.4)
--- NOTE | 2021-03-28 08:15 | Electrocardiogram Report ---
Test Reason : Blood Pressure : / mmHG Vent. Rate : 096 BPM Atrial Rate : 115 BPM P-R Int : 000 ms QRS Dur : 092 ms QT Int : 346 ms P-R-T Axes : 000 -30 008 degrees QTc Int : 437 ms Atrial fibrillation with occasional ventricular-paced complexes Left axis deviation Low voltage QRS Septal infarct , age undetermined Abnormal ECG When compared with ECG of 13-FEB-2021 19:57, Atrial fibrillation has replaced Electronic atrial pacemaker Confirmed by Seven Houser ([id number]) on 03/28/2021 8:15:14 AM Referred By: Confirmed By:Seven Houser
[2021-03-28] MEDS: METOPROLOL SUCC 50MG EXT REL TAB PO SCH ×2 (08:23→20:40)
[2021-03-28] MEDS: MAGNESIUM OXIDE 400 MG TAB PO SCH (08:23)
[2021-03-28] MEDS: CHOLECALCIFEROL 1,000 UNITS 25 MCG TAB PO SCH (08:23)
[2021-03-28] MEDS: FLUTICASONE/VILANTEROL 100/25MCG 14 PUFFS/INHALER INH SCH (08:23)
[2021-03-28] MEDS: POTASSIUM CHLORIDE CRTAB 20 MEQ TABCR PO SCH ×2 (08:23→20:41)
[2021-03-28] MEDS: SERTRALINE HCL 50 MG TABLET PO SCH (08:23)
[2021-03-28] MEDS: FUROSEMIDE 40 MG in SYRINGE 0 ML IV SCH ×2 (08:23→17:43)
[2021-03-28] MEDS ORDERED: FUROSEMIDE 40 MG/4 ML VIAL IV SCH (09:00)
--- NOTE | 2021-03-28 14:15 | Hospitalist Progress Note ---
Date of Service March 28, 2021 Assessment & Plan (1) Acute on chronic diastolic (congestive) heart failure: Pt is 70 y/o F with PMH persistent atrial fibrillation, on warfarin, s/p DANAE guided DCCV in 10/2018 with recurrent atrial fibrillation s/p cardioversion 05/05/2020, 09/05/2020 with recurrent atrial fibrillation 12/2020, tachybrady syndrome s/p PPM, diastolic CHF, history of gastric bypass, COPD, depression who presented to ED at the referral of cardiology clinic for BLE edema. 10 pound weight gain, BLE edema x 1 month. , BNP: 3150, CXR: No acute cardiopulmonary findings Last echo: EF 55%, severely dilated left atrium and right atrium, grade 2 diastolic dysfunction, mild MR, moderate TR treated with IV Lasix on admission - diretics kept on hold for acute renal failire , low BP appreciate input from cardilogy (2) A-fib: coumadin on hold for high INR S/P DANAE guided DCCV in 10/2018 with recurrent atrial fibrillation, s/p cardioversion 05/05/2020, 09/05/2020 with recurrent atrial fibrillation 12/2020. 02/04 sotalol discontinued. Recent hospitalization for Tikosyn. Tikosyn discontinued 02/2021. Pacemaker interrogation today in cardiology clinic revealed atrial fibrillation with RVR 130 for the past month. Dr Ivey's office note reported pt may need an upgrade to BiV ppm and AVN ablation -Continue metoprolol -Cardiology consult (3) Supratherapeutic INR: -Hold Coumadin tonight -INR in a.m. (4) Tachy-corin syndrome: s/p PPM Pacemaker interrogation in clinic today revealed atrial fibrillation with RVR 130 for the past month Follows with Dr. Ivey . Her office note reported pt may need an upgrade to BiV ppm and AVN ablation (5) COPD (chronic obstructive pulmonary disease): No acute exacerbation -Continue Advair, as needed albuterol, Accolate (6) Anemia: Hgb: 11. Hgb: 9 and 01/2021 No signs of bleeding -Continue iron supplement DVT Prophylaxis -On Coumadin, currently INR supratherapeutic admitted in PCU Full code as per discussion with pt Follows with Dr Olvera for routine care Admission and Anticipated Discharge Date Admission Date: March 27, 2021 Subjective Patient was seen and examined, feels better no complain of chest pain , no SOB Review of Systems Review of Systems: All systems reviewed & are unremarkable except as noted in Subjective Physical Exam Physical Exam: Physical exam: General: No acute distress, alert awake oriented x3 HEENT: PERRLA, EOMI, Heart: Regular S1-S2, no carotid bruit, no JVD, no lower extremity edema Lungs: Clear to auscultate, no wheeze or rales Abdomen: Soft nontender, no organomegaly Extremity: No cyanosis, no deformity, normal strength 5 out of 5 with upper and lower Neuro: No focal neurological deficit normal speech, normal visual field, Motor strength : normal both upper and lower extremity, sensation intact Psych: Alert awake oriented x3, normal affect Results & Data Results & Data ([facility]) Vital Signs (Past 12 Hours) Vital Signs Temp Pulse Resp BP Pulse Ox 03/28/21 11:26 37.1 C 77 20 96/59 L 97 03/28/21 07:36 36.5 C 90 20 96/64 L 98 03/28/21 04:13 36.5 C 68 18 104/69 99
--- NOTE | 2021-03-28 15:05 | Electrocardiogram Report ---
Test Reason : Blood Pressure : / mmHG Vent. Rate : 082 BPM Atrial Rate : 070 BPM P-R Int : 000 ms QRS Dur : 094 ms QT Int : 370 ms P-R-T Axes : 000 -44 018 degrees QTc Int : 432 ms Atrial fibrillation with occasional ventricular-paced complexes Left axis deviation Incomplete right bundle branch block Anteroseptal infarct , age undetermined Abnormal ECG When compared with ECG of 27-MAR-2021 13:12, Vent. rate has decreased BY 14 BPM Confirmed by Gutierrez Mistry ([id number]) on 03/28/2021 3:04:58 PM Referred By: Russell Olvera Confirmed By:Gutierrez Mistry
--- NOTE | 2021-03-28 16:06 | Cardiology Consultation ---
Date of Consultation March 28, 2021 Assessment & Plan (1) Acute on chronic diastolic (congestive) heart failure: Patient is a 70-year-old female with complex history chronic diastolic heart failure with preserved ejection fraction past paroxysmal now nearly persistent atrial fibrillation with failed attempts with antiarrhythmic therapies including sotalol and Tikosyn. Patient presents now once again having lapsed into right heart failure in association with elevated atrial fibrillation rates. Management complicated by underlying anemia and hypoalbuminemia. Patient to remain appropriately anticoagulated She has now responded to IV diuretics in hospital. We will need further rate control for atrial fibrillation. Blood pressure not likely to allow significant further increase in beta-adria or calcium channel adria therapies. We will add digoxin to her regimen If ineffective may consider AV junction ablation with upgrade in pacemaker to biventricular device Will hold Coumadin tonight (2) Atrial fibrillation with rapid ventricular response: (3) Chronic heart failure with preserved ejection fraction (HFpEF): (4) Tachy-corin syndrome: (5) Anemia: (6) Hypoalbuminemia: History of Present Illness Reason for Consultation: Atrial fibrillation with rapid response, tachybradycardia syndrome, congestive heart failure Requesting Physician: Dr. Abreu Attending Physician: Hannah Abreu MD History of Present Illness Patient is a 70-year-old female whose ongoing issues include 1. Paroxysmal approaching persistent atrial fibrillation with recurrent tachyarrhythmias difficult to control rates. Patient previously trialed on antiarrhythmic therapy including sotalol and Tikosyn 2. Tachybradycardia syndrome status post dual-chamber pacemaker insertion 10/24/2018, [employer] Model: [place] XT DR MRI 3. Chronic diastolic heart failure with preserved systolic function 4. Hypertension 5. Marked left atrial enlargement 6. Chronic anemia 7. Chronic hypoalbuminemia status post gastric bypass surgery with revision 2014 Patient presented this admission with signs and symptoms of acute diastolic heart failure right greater than left and persistently elevated atrial fibrillation rates. She has been referred and underwent initial diuresis ove rnight. Heart rates and clinical status has improved. Still remains with elevated atrial fibrillation rates at times. No fevers chills or unexplained infections no chest pains or discomfort. No irritation or tenderness over pacemaker site no bleeding difficulties. No TIA or stroke. Allergies Allergy/AdvReac Type Severity Reaction Status Date / Time oxycodone AdvReac Intermediate GI SYMPTOMS Verified 02/11/21 13:19 Home Medications Medication Instructions Recorded Confirmed Type Flintstones Tab Chew 1 tab PO QAM 07/20/18 03/27/21 History albuterol sulfate [Ventolin HFA] 2 puff INHALATION QID PRN 07/20/18 03/27/21 History cholecalciferol (vitamin D3) 2,000 unit PO QAM 07/20/18 03/27/21 History [Vitamin D3] fluticasone propion-salmeterol 1 inh INHALATION BID 07/20/18 03/27/21 History [Advair Diskus] sertraline [Zoloft] 50 mg PO QAM 07/20/18 03/27/21 History warfarin 2.5 mg PO DAILY@1600 07/20/18 03/27/21 History magnesium oxide 400 mg PO QAM #34 tab 04/23/20 03/27/21 Rx zafirlukast [Accolate] 20 mg PO BID 12/25/20 03/27/21 History Vitron-C 1 tab PO BID 02/11/21 03/27/21 History furosemide 40 mg PO DAILY 03/27/21 03/27/21 History metoprolol succinate 50 mg PO BID 03/27/21 03/27/21 History Patient History Medical History A-fib S/P DANAE guided DCCV 10/2018. Reverted back to afib 03/2020. External DCCV 04/23/20. 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 Surgical History H/O colonoscopy H/O gastric bypass H/O hernia repair H/O ventral hernia repair History of cholecystectomy Pacemaker LAST CHECK AUG 2020 S/P appendectomy S/P small bowel resection Family History Other Cancer Hypertension Lung disease Social History Smoking Status: Never smoker Second Hand Exposure: Yes ( smokes currently); Do You Dip or Chew Tobacco: No; Hx Alcohol Use: Yes Alcohol type: beer Alcohol Intake Frequency: Monthly or Less Hx Substance Use: No Preferred Language: [place] Citizen Communication Ability: Effective Motor Vehicles Inspector Required: No Beliefs That Will Affect Care: None Current Living Situation: Spouse current occupational status: employed Other Information That Helps Us Care for You: No Feels Safe at Home: Yes Safety Concerns: Feels Safe At This Time Assistive Devices: Glasses Review of Systems Review of Systems: All systems reviewed & are unremarkable except as noted in HPI & below Physical Exam Constitutional: + obese Chronically ill-appearing female in no acute distress Eyes: PERRL, conjunctivae normal, anicteric sclerae ENMT: external ear and nose normal, oropharynx normal Neck: trachea midline, no thyromegaly Respiratory: normal respiratory effort, lungs clear to auscultation Cardiovascular: Rate/Rhythm: + tachycardic and + irregularly irregular Heart Sounds: no murmur Vessels: no JVD Extremities: + edema (Mild 1+) Gastrointestinal (Abdomen): normal bowel sounds, soft, nontender, no hepatosplenomegaly Musculoskeletal: no cyanosis or clubbing, extremities motor strength 5/5 Neurologic: PERRL, EOMI, accommodation nl, no face palsy, no dysarthria Psychiatric: A+Ox3, euthymic affect Results & Data ([facility]) Vital Signs (Past 12 Hours) Vital Signs Temp Pulse Pulse Resp BP Pulse Ox 03/28/21 15:44 36.9 C 92 H 18 109/76 98 03/28/21 15:05 82 03/28/21 11:26 37.1 C 77 20 96/59 L 97 03/28/21 07:36 36.5 C 90 20 96/64 L 98 03/28/21 04:13 36.5 C 68 18 104/69 99 Laboratory Results Laboratory Results - last 24 hr 03/27/21 03/27/21 03/27/21 15:26 15:26 15:26 WBC RBC Hgb Hct MCV MCH MCHC RDW Std Deviation RDW Coeff of Saman Plt Count MPV PT 32.4 H INR 3.5 H Sodium Potassium Chloride Carbon Dioxide Anion Gap BUN Creatinine Est Cr Clr Drug Dosing Est GFR ( Amer) Est GFR (Non-Af Amer) BUN/Creatinine Ratio Glucose Calcium Magnesium Troponin I COVID-19 Eval Order Covid19 at [facility] SARS-CoV-2 (PCR) NEGATIVE 03/27/21 03/28/21 03/28/21 21:07 06:02 06:02 WBC 5.18 RBC 3.20 L Hgb 10.1 L Hct 30.9 L MCV 96.6 MCH 31.6 MCHC 32.7 RDW Std Deviation 55.9 H RDW Coeff of Saman 16.2 H Plt Count 237 MPV 10.1 PT 32.9 H INR 3.6 H Sodium Potassium Chloride Carbon Dioxide Anion Gap BUN Creatinine Est Cr Clr Drug Dosing Est GFR ( Amer) Est GFR (Non-Af Amer) BUN/Creatinine Ratio Glucose Calcium Magnesium Troponin I < 0.015 COVID-19 Eval Order SARS-CoV-2 (PCR) 03/28/21 06:02 WBC RBC Hgb Hct MCV MCH MCHC RDW Std Deviation RDW Coeff of Saman Plt Count MPV PT INR Sodium 145 Potassium 4.0 Chloride 108 H Carbon Dioxide 32 Anion Gap 5.0 BUN 15 Creatinine 0.69 Est Cr Clr Drug Dosing 62.4 Est GFR ( Amer) 103.7 Est GFR (Non-Af Amer) 89.4 BUN/Creatinine Ratio 22.4 H Glucose 64 L Calcium 7.7 L Magnesium 2.2 Troponin I COVID-19 Eval Order SARS-CoV-2 (PCR) ECG Additional Comments: 28-MAR-2021 05:16:30 [facility]-MEDICU ROUTINE RETRIEVAL Atrial fibrillation with occasional ventricular-paced complexes Left axis deviation Incomplete right bundle branch block Anteroseptal infarct , age undetermined Abnormal ECG When compared with ECG of 27-MAR-2021 13:12, Vent. rate has dec reased BY 14 BPM
[2021-03-28] MEDS ORDERED: DIGOXIN 0.25 MG TAB PO ONE ×2 (16:24→20:30)
[2021-03-28] MEDS ORDERED: POLYETHYLENE (MIRALAX) 17 GM PACK PO PRN (21:04)
[2021-03-28] MEDS ORDERED: DOCUSATE SODIUM 100 MG CAP PO ONE (21:04)
[2021-03-28] MEDS: ACETAMINOPHEN 325 MG TAB PO PRN (22:26)
[2021-03-29 06:04] LABS: INR 2.8 (0.9-1.1); Prothrombin Time 25.9 Seconds (9.0-12.0)
[2021-03-29] MEDS: SERTRALINE HCL 50 MG TABLET PO SCH (08:40)
[2021-03-29] MEDS: CHOLECALCIFEROL 1,000 UNITS 25 MCG TAB PO SCH (08:40)
[2021-03-29] MEDS: MAGNESIUM OXIDE 400 MG TAB PO SCH (08:40)
[2021-03-29] MEDS: POTASSIUM CHLORIDE CRTAB 20 MEQ TABCR PO SCH ×2 (08:40→20:14)
[2021-03-29] MEDS: FLUTICASONE/VILANTEROL 100/25MCG 14 PUFFS/INHALER INH SCH (08:41)
[2021-03-29] MEDS: METOPROLOL SUCC 50MG EXT REL TAB PO SCH ×2 (09:00→20:14)
[2021-03-29 09:39] LABS: Calcium 7.7 mg/dl (8.5-10.1); Creatinine Clr Calc Pharmacy 60.7 ml/min; Est GFR (African American) 103.2 ml/min; Potassium 4.5 mmol/L (3.5-5.1)
[2021-03-29] MEDS ORDERED: ALUMINUM/MAGNESIUM/SIMETH (MAALOX MAX) 30 ML UDC PO PRN (10:49)
--- NOTE | 2021-03-29 11:36 | Cardiology Progress Note ---
Date of Service March 29, 2021 Assessment & Plan (1) Acute on chronic diastolic (congestive) heart failure: Patient is a 70-year-old female with complex history chronic diastolic heart failure with preserved ejection fraction past paroxysmal now nearly persistent atrial fibrillation with failed attempts with antiarrhythmic therapies including sotalol and Tikosyn. Patient presents now once again having lapsed into right heart failure in association with elevated atrial fibrillation rates. Management complicated by underlying anemia and hypoalbuminemia. Patient to remain appropriately anticoagulated Signs and symptoms of congestive heart failure have resolved with IV diuretics. Blood pressures are trending low. Echocardiogram demonstrates preserved ejection fraction with biatrial enlargement, severe tricuspid insufficiency (2) Atrial fibrillation with rapid ventricular response: Rates now substantially lower question being driven by heart failure. We will continue digoxin and metoprolol resuming metoprolol succinate as blood pressure allows Currently no indications for AV junction ablation though may ultimately need to proceed that way in the future (3) Chronic heart failure with preserved ejection fraction (HFpEF): (4) Tachy-corin syndrome: (5) Anemia: (6) Hypoalbuminemia: Admission and Anticipated Discharge Date Admission Date: March 27, 2021 Subjective Patient was seen and examined, chart, medications, telemetry reviewed. Patient has had brisk diuresis since admission weight down multiple kilos but with associated lowering of blood pressure. Heart rates have come under better control on current medications although metoprolol has had to been held due to hypotension. Digoxin added to regimen yesterday with tolerance. No acute cardiac complaints. No dizziness or lightheadedness. Lower extremity edema improved Physical Exam Constitutional: + obese Eyes: PERRL, conjunctivae normal, anicteric sclerae ENMT: external ear and nose normal, oropharynx normal Neck: trachea midline, no thyromegaly Respiratory: normal respiratory effort, lungs clear to auscultation Cardiovascular: Rate/Rhythm: + irregularly irregular Heart Sounds: no murmur Vessels: no JVD Extremities: no edema Gastrointestinal (Abdomen): normal bowel sounds, soft, nontender, no hepatosplenomegaly Musculoskeletal: no cyanosis or clubbing, extremities motor strength 5/5 Neurologic: PERRL, EOMI, accommodation nl, no face palsy, no dysarthria Psychiatric: A+Ox3, euthymic affect Results & Data ([facility]) Vital Signs (Past 12 Hours) Vital Signs Temp Pulse Pulse Resp BP Pulse Ox 03/29/21 07:41 36.6 C 70 18 82/53 L 99 03/29/21 07:00 78 03/29/21 03:27 36.6 C 77 20 82/50 L 98 Laboratory Results Laboratory Results - last 24 hr 03/29/21 03/29/21 05:32 05:32 PT 25.9 H INR 2.8 H Sodium 142 Potassium 4.5 Chloride 109 H Carbon Dioxide 31 Anion Gap 3.0 BUN 21 H Creatinine 0.70 Est Cr Clr Drug Dosing 60.7 Est GFR ( Amer) 103.2 Est GFR (Non-Af Amer) 89.0 BUN/Creatinine Ratio 30.0 H Glucose 70 Calcium 7.7 L
[2021-03-29] MEDS: DIGOXIN 0.125 MG TAB PO SCH (14:48)
[2021-03-29] MEDS: ACETAMINOPHEN 325 MG TAB PO PRN (20:13)
--- NOTE | 2021-03-30 00:06 | Hospitalist Progress Note ---
Date of Service March 30, 2021 Assessment & Plan (1) Acute on chronic diastolic (congestive) heart failure: Pt is 70 y/o F with PMH persistent atrial fibrillation, on warfarin, s/p DANAE guided DCCV in 10/2018 with recurrent atrial fibrillation s/p cardioversion 05/05/2020, 09/05/2020 with recurrent atrial fibrillation 12/2020, tachybrady syndrome s/p PPM, diastolic CHF, history of gastric bypass, COPD, depression who presented to ED at the referral of cardiology clinic for BLE edema. 10 pound weight gain, BLE edema x 1 month. , BNP: 3150, CXR: No acute cardiopulmonary findings Last echo: EF 55%, severely dilated left atrium and right atrium, grade 2 diastolic dysfunction, mild MR, moderate TR treated with IV Lasix on admission - diretics kept on hold for acute renal failire , low BP appreciate input from cardilogy (2) A-fib: coumadin on hold for high INR S/P DANAE guided DCCV in 10/2018 with recurrent atrial fibrillation, s/p cardioversion 05/05/2020, 09/05/2020 with recurrent atrial fibrillation 12/2020. 02/04 sotalol discontinued. Recent hospitalization for Tikosyn. Tikosyn discontinued 02/2021. Pacemaker interrogation today in cardiology clinic revealed atrial fibrillation with RVR 130 for the past month. Dr Ivey's office note reported pt may need an upgrade to BiV ppm and AVN ablation -metoprolol on hold for low BP added digoxin -Cardiology following (3) Supratherapeutic INR: -Hold Coumadin tonight -INR in a.m. (4) Tachy-corin syndrome: s/p PPM Pacemaker interrogation in clinic today revealed atrial fibrillation with RVR 130 for the past month Follows with Dr. Ivey . Her office note reported pt may need an upgrade to BiV ppm and AVN ablation (5) COPD (chronic obstructive pulmonary disease): No acute exacerbation -Continue Advair, as needed albuterol, Accolate (6) Anemia: Hgb: 11. Hgb: 9 and 01/2021 No signs of bleeding -Continue iron supplement DVT Prophylaxis -On Coumadin, currently INR supratherapeutic admitted in PCU Full code as per discussion with pt Follows with Dr Olvera for routine care Admission and Anticipated Discharge Date Admission Date: March 27, 2021 Subjective Patient was seen and examined, feels better no complain of chest pain , no SOB Review of Systems Review of Systems: All systems reviewed & are unremarkable except as noted in Subjective Physical Exam Physical Exam: Physical exam: General: No acute distress, alert awake oriented x3 HEENT: PERRLA, EOMI, Heart: Regular S1-S2, no carotid bruit, no JVD, no lower extremity edema Lungs: Clear to auscultate, no wheeze or rales Abdomen: Soft nontender, no organomegaly Extremity: No cyanosis, no deformity, normal strength 5 out of 5 with upper and lower Neuro: No focal neurological deficit normal speech, normal visual field, Motor strength : normal both upper and lower extremity, sensation intact Psych: Alert awake oriented x3, normal affect Results & Data Results & Data ([facility]) Vital Signs (Past 12 Hours) Vital Signs Temp Pulse Pulse Resp BP Pulse Ox 03/29/21 23:29 36.6 C 80 20 92/55 L 97 03/29/21 22:00 76 03/29/21 19:11 36.7 C 74 20 92/58 L 96 03/29/21 16:00 71 03/29/21 15:34 36.4 C L 74 18 101/71 98
[2021-03-30 06:16] LABS: INR 1.9 (0.9-1.1); Prothrombin Time 18.6 Seconds (9.0-12.0)
[2021-03-30] MEDS: CHOLECALCIFEROL 1,000 UNITS 25 MCG TAB PO SCH (07:37)
[2021-03-30] MEDS: SERTRALINE HCL 50 MG TABLET PO SCH (07:38)
[2021-03-30] MEDS: POTASSIUM CHLORIDE CRTAB 20 MEQ TABCR PO SCH (07:38)
[2021-03-30] MEDS: MAGNESIUM OXIDE 400 MG TAB PO SCH (07:38)
[2021-03-30] MEDS: FLUTICASONE/VILANTEROL 100/25MCG 14 PUFFS/INHALER INH SCH (07:39)
[2021-03-30] MEDS: METOPROLOL SUCC 50MG EXT REL TAB PO SCH ×2 (07:39→19:55)
[2021-03-30] MEDS ORDERED: HYDROCORTISONE 2.5% CR 30 GM TUBE EXT PRN (11:11)
--- NOTE | 2021-03-30 14:11 | Cardiology Progress Note ---
Date of Service March 30, 2021 Assessment & Plan (1) Acute on chronic diastolic (congestive) heart failure: SBP in the 90s, holding diuretics for now. (2) Atrial fibrillation with rapid ventricular response: Remain in AF, ventricular rates improved , in the most part in the 80s with rare ventricular pacing. Recent echocardiogram images reviewed. Severe LA enlargement noted. This is chronic. Severe tricuspid regurgitation and RA enlargement noted. All 3 tricuspid leaflets are relatively well visualized and appear to coapt. TR certainly has progressed in severity compared to images of the 2019 outpatient echo (pacemaker lead in place then as well). INR 1.9 today. Continue coumadin. Continue metoprolol and digoxin. Proceed with rate control and anticoagulation. As attempts to maintain sinus rhythm with sotalol and Dofetilide unsuccessful. Admission and Anticipated Discharge Date Admission Date: March 27, 2021 Subjective Patient was seen and examined, feels better no complain of chest pain , no shortness of breath. LE edema improved. Review of Systems 2 Review of Systems: All systems reviewed & are unremarkable except as noted in HPI & below Physical Exam Physical Exam: Temp Pulse Resp BP Pulse Ox 36.5 C 73 20 94/63 L 95 03/30/21 10:53 03/30/21 10:53 03/30/21 10:53 03/30/21 12:18 03/30/21 10:53 Constitutional: WD/WN, vitals as above Respiratory: normal respiratory effort, lungs clear to auscultation Cardiovascular: Rate/Rhythm: + irregularly irregular Heart Sounds: + murmur (I/ SM) Gastrointestinal (Abdomen): normal bowel sounds, soft, nontender, no hepatosplenomegaly Neurologic: PERRL, EOMI, accommodation nl, no face palsy, no dysarthria Results & Data ([facility]) Vital Signs (Past 12 Hours) Vital Signs Temp Pulse Pulse Resp BP Pulse Ox 03/30/21 12:18 94/63 L 03/30/21 10:53 36.5 C 73 20 88/59 L 95 03/30/21 07:40 82 03/30/21 07:36 36.4 C L 76 16 100/64 99 03/30/21 03:43 36.5 C 76 20 102/66 98
--- NOTE | 2021-03-30 15:56 | Hospitalist Progress Note ---
Date of Service March 30, 2021 Assessment & Plan (1) Acute on chronic diastolic (congestive) heart failure: admitted with volume overload , acute on chronic CHF with diastolic heart failure Pt is 70 y/o F with PMH persistent atrial fibrillation, on warfarin, s/p DANAE guided DCCV in 10/2018 with recurrent atrial fibrillation s/p cardioversion 05/05/2020, 09/05/2020 with recurrent atrial fibrillation 12/2020, tachybrady syndrome s/p PPM, diastolic CHF, history of gastric bypass, COPD, depression who presented to ED at the referral of cardiology clinic for BLE edema. 10 pound weight gain, BLE edema x 1 month. , BNP: 3150, CXR: No acute cardiopulmonary findings echocardiogram :. Severe LA enlargement noted. This is chronic. Severe tricuspid regurgitation and RA enlargement noted. All 3 tricuspid leaflets are relatively well visualized and appear to coapt. TR certainly has progressed in severity compared to images of the 2019 outpatient echo (pacemaker lead in place then as well). - pt received IV Lasix on admission -leading brisk diuresis Vol status improved Lasix had to be kept on hold for Low BP appreciate input from cardiology (2) A-fib: coumadin on hold for high INR S/P DANAE guided DCCV in 10/2018 with recurrent atrial fibrillation, s/p cardioversion 05/05/2020, 09/05/2020 with recurrent atrial fibrillation 12/2020. 02/04 sotalol discontinued. Recent hospitalization for Tikosyn. Tikosyn discontinued 02/2021. Pacemaker interrogation today in cardiology clinic revealed atrial fibrillation with RVR 130 for the past month. Dr Ivey's office note reported pt may need an upgrade to BiV ppm and AVN ablation -metoprolol resumed with holding parameters added digoxin -Cardiology following (3) Supratherapeutic INR: INR 1.9 today. Coumadin resumed - (4) Tachy-corin syndrome: s/p PPM Pacemaker interrogation in clinic today revealed atrial fibrillation with RVR 130 for the past month Follows with Dr. Ivey . Her office note reported pt may need an upgrade to BiV ppm and AVN ablation (5) COPD (chronic obstructive pulmonary disease): No acute exacerbation -Continue Advair, as needed albuterol, Accolate (6) Anemia: Hgb: 11. Hgb: 9 and 01/2021 No signs of bleeding -Continue iron supplement DVT Prophylaxis -On Coumadin, admitted in PCU Full code as per discussion with pt Follows with Dr Olvera for routine care Admission and Anticipated Discharge Date Admission Date: March 27, 2021 Subjective Patient was seen and examined, feels better no complain of chest pain , no shortness of breath. no fever or chills Review of Systems Review of Systems: All systems reviewed & are unremarkable except as noted in Subjective Physical Exam Physical Exam: Physical exam: General: No acute distress, alert awake oriented x3 HEENT: PERRLA, EOMI, Heart: Regular S1-S2, no carotid bruit, no JVD, no lower extremity edema Lungs: Clear to auscultate, no wheeze or rales Abdomen: Soft nontender, no organomegaly Extremity: No cyanosis, no deformity, normal strength 5 out of 5 with upper and lower Neuro: No focal neurological deficit normal speech, normal visual field, Motor strength : normal both upper and lower extremity, sensation intact Psych: Alert awake oriented x3, normal affect Results & Data Results & Data ([facility]) Vital Signs (Past 12 Hours) Vital Signs Temp Pulse Pulse Resp BP Pulse Ox 03/30/21 12:18 94/63 L 03/30/21 10:53 36.5 C 73 20 88/59 L 95 03/30/21 07:40 82 03/30/21 07:36 36.4 C L 76 16 100/64 99
[2021-03-30] MEDS ORDERED: WARFARIN SOD 2.5 MG TAB PO SCH (16:00)
[2021-03-30] MEDS: DIGOXIN 0.125 MG TAB PO SCH (16:03)
[2021-03-31 06:19] LABS: INR 1.6 (0.9-1.1); Prothrombin Time 15.4 Seconds (9.0-12.0)
[2021-03-31 06:25] LABS: BUN Creatinine Ratio 38.8 (10-20); Calcium 7.6 mg/dl (8.5-10.1); Est GFR (African American) 109.8 ml/min; Est GFR (Non-African American) 94.7 ml/min; Potassium 4.8 mmol/L (3.5-5.1)
[2021-03-31] MEDS: SERTRALINE HCL 50 MG TABLET PO SCH (08:29)
[2021-03-31] MEDS: METOPROLOL SUCC 50MG EXT REL TAB PO SCH ×2 (08:29→20:22)
[2021-03-31] MEDS: FLUTICASONE/VILANTEROL 100/25MCG 14 PUFFS/INHALER INH SCH (08:29)
[2021-03-31] MEDS: MAGNESIUM OXIDE 400 MG TAB PO SCH (08:29)
[2021-03-31] MEDS: CHOLECALCIFEROL 1,000 UNITS 25 MCG TAB PO SCH (08:29)
[2021-03-31] MEDS ORDERED: FUROSEMIDE 20 MG TAB PO SCH (09:00)
--- NOTE | 2021-03-31 10:24 | Cardiology Progress Note ---
Date of Service March 31, 2021 Assessment & Plan (1) Chronic heart failure with preserved ejection fraction (HFpEF): (2) Atrial fibrillation with rapid ventricular response: (3) Severe tricuspid regurgitation: Titrate furosemide to 40 mg daily. Add Aldactone 12.5 mg daily. Serum potassium borderline elevated this a.m., however, patient had been receiving 40 mEq of potassium supplementation daily during hospitalization. Potassium supplementation discontinued. Continue digoxin in addition to metoprolol to maintain adequate rate control. 2D transthoracic echocardiographic images reviewed demonstrating severe tricuspid regurgitation. Etiology of the tricuspid regurgitation is not well defined. The right ventricular pacemaker lead is not clearly implicated, however, is within the differential diagnosis. Right ventricular function appears normal without significant pulmonary hypertension. Recommend continued medical management. I long discussion with the patient regarding importance of sodium and fluid restriction. Admits to excessive water consumption. She will attempt to curb intake in the outpatient setting. Admission and Anticipated Discharge Date Admission Date: March 27, 2021 Subjective 62-year-old female seen and examined at the bedside. Chart reviewed. Admitted 03/27/2021 with acute on chronic diastolic congestive heart failure and rapid atrial fibrillation. Treated with IV diuretic therapy. Digoxin added to improve rate control. 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 Dofetilide recently discontinued during an office visit in February. Rate control strategy recommended with titration of metoprolol succinate to 50 mg twice daily. Edema improved during hospitalization with IV diuretic therapy. Patient transition to oral furosemide telemetry reveals atrial fibrillation with heart rate averaging 70-80 bpm. Currently resting comfortably. Denies orthopnea or PND. No palpitations, lightheadedness, dizziness, syncope, or near syncope. Denies chest discomfort or unusual shortness of breath. Compliant with diuretic therapy in the outpatient setting. Review of Systems Review of Systems: All systems reviewed & are unremarkable except as noted in Subjective Physical Exam Constitutional: well developed and well nourished; no acute distress Respiratory: normal respiratory effort; no respiratory distress and no labored breathing Auscultation: no crackles, no rales, no rhonchi and no wheezes Cardiovascular: Rate/Rhythm: + irregularly irregular Heart Sounds: normal S1, normal S2 and + murmur (1-2/6 midsystolic murmur heard best at the left sternal border) Vessels: no JVD Extremities: + edema (Trace to mild bilateral pedal and ankle edema) Gastrointestinal (Abdomen): Inspection/Auscultation: normal bowel sounds Percussion/Palpation: abdomen soft; abdomen nontender, no guarding and abdomen not rigid Neurologic: CN's II-XI intact bilaterally; no focal motor deficits Motor/Sensory: no tremor Psychiatric: A+Ox3, euthymic affect Results & Data ([facility]) Vital Signs (Past 12 Hours) Vital Signs Temp Pulse Pulse Resp BP Pulse Ox 03/31/21 07:43 36.4 C L 75 19 108/75 97 03/31/21 02:50 36.4 C L 94 H 20 83/54 L 94 03/31/21 00:00 80 03/30/21 23:00 36.6 C 79 18 99/52 L 98
--- NOTE | 2021-03-31 16:58 | Hospitalist Progress Note ---
Date of Service March 31, 2021 Assessment & Plan (1) Acute on chronic diastolic (congestive) heart failure: admitted with volume overload , acute on chronic CHF with diastolic heart failure symptoms imporved , no orthopena , no SOB or SUTTON , lower swelling has improved Pt is 70 y/o F with PMH persistent atrial fibrillation, on warfarin, s/p DANAE guided DCCV in 10/2018 with recurrent atrial fibrillation s/p cardioversion 05/05/2020, 09/05/2020 with recurrent atrial fibrillation 12/2020, tachybrady syndrome s/p PPM, diastolic CHF, history of gastric bypass, COPD, depression who presented to ED at the referral of cardiology clinic for BLE edema. 10 pound weight gain, BLE edema x 1 month. , BNP: 3150, CXR: No acute cardiopulmonary findings echocardiogram :. Severe LA enlargement noted. This is chronic. Severe tricuspid regurgitation and RA enlargement noted. All 3 tricuspid leaflets are relatively well visualized and appear to coapt. TR certainly has progressed in severity compared to images of the 2019 outpatient echo (pacemaker lead in place then as well). - pt received IV Lasix on admission -leading brisk diuresis Vol status improved lasix dose adjusted to 40mg daily , added aldactone appreciate input from cardiology (2) A-fib: coumadin was on hold for high INR S/P DANAE guided DCCV in 10/2018 with recurrent atrial fibrillation, s/p cardioversion 05/05/2020, 09/05/2020 with recurrent atrial fibrillation 12/2020. 02/04 sotalol discontinued. Recent hospitalization for Tikosyn. Tikosyn discontinued 02/2021. Pacemaker interrogation today in cardiology clinic revealed atrial fibrillation with RVR 130 for the past month. Dr Ivey's office note reported pt may need an upgrade to BiV ppm and AVN ablation -metoprolol resumed 50 mg BID with holding parameters for hypotension added digoxin -Cardiology following (3) Supratherapeutic INR: INR 1.9 today. Coumadin resumed - (4) Tachy-corin syndrome: s/p PPM Pacemaker interrogation in clinic today revealed atrial fibrillation with RVR 130 for the past month Follows with Dr. Ivey . Her office note reported pt may need an upgrade to BiV ppm and AVN ablation (5) COPD (chronic obstructive pulmonary disease): No acute exacerbation -Continue Advair, as needed albuterol, Accolate (6) Anemia: Hgb: 11. Hgb: 9 and 01/2021 No signs of bleeding -Continue iron supplement DVT Prophylaxis -On Coumadin, Full code as per discussion with pt Follows with Dr Olvera for routine care expected to discharged home when medically stable Admission and Anticipated Discharge Date Admission Date: March 27, 2021 Subjective pt reports of doing better today shortness of breath , orthopnea has resolved no chest pain or cough no fever or chills lower ext edema has improved Review of Systems Review of Systems: All systems reviewed & are unremarkable except as noted in Subjective Physical Exam Physical Exam: Physical exam: General: No acute distress, alert awake oriented x3 HEENT: PERRLA, EOMI, Heart: Regular S1-S2, no carotid bruit, no JVD, no lower extremity edema Lungs: Clear to auscultate, no wheeze or rales Abdomen: Soft nontender, no organomegaly Extremity: No cyanosis, no deformity, normal strength 5 out of 5 with upper and lower Neuro: No focal neurological deficit normal speech, normal visual field, Motor strength : normal both upper and lower extremity, sensation intact Psych: Alert awake oriented x3, normal affect Results & Data Results & Data ([facility]) Vital Signs (Past 12 Hours) Vital Signs Temp Pulse Pulse Resp BP Pulse Ox 03/31/21 15:28 70 03/31/21 15:10 36.3 C L 72 20 99/64 L 98 03/31/21 14:45 36.5 C 70 19 104/67 98 03/31/21 10:46 37.1 C 73 20 92/62 L 100 03/31/21 07:43 36.4 C L 75 19 108/75 97
[2021-03-31] MEDS: WARFARIN SOD 5 MG TAB PO SCH (17:02)
[2021-03-31] MEDS: DIGOXIN 0.125 MG TAB PO SCH (17:03)
[2021-03-31] MEDS: ACETAMINOPHEN 325 MG TAB PO PRN (20:25)
[2021-04-01 08:38] LABS: INR 1.6 (0.9-1.1); Prothrombin Time 16.1 Seconds (9.0-12.0)
[2021-04-01] MEDS: CHOLECALCIFEROL 1,000 UNITS 25 MCG TAB PO SCH (08:38)
[2021-04-01] MEDS: FLUTICASONE/VILANTEROL 100/25MCG 14 PUFFS/INHALER INH SCH (08:38)
[2021-04-01] MEDS: METOPROLOL SUCC 50MG EXT REL TAB PO SCH ×2 (08:39→20:20)
[2021-04-01] MEDS: FUROSEMIDE 40 MG TAB PO SCH (08:39)
[2021-04-01] MEDS: MAGNESIUM OXIDE 400 MG TAB PO SCH (08:39)
[2021-04-01] MEDS: SERTRALINE HCL 50 MG TABLET PO SCH (08:39)
[2021-04-01] MEDS: SPIRONOLACTONE 12.5 MG TAB PO SCH (08:39)
--- NOTE | 2021-04-01 08:56 | Cardiology Progress Note ---
Date of Service April 01, 2021 Assessment & Plan (1) Chronic heart failure with preserved ejection fraction (HFpEF): (2) Atrial fibrillation with rapid ventricular response: (3) Severe tricuspid regurgitation: Repeat basic metabolic panel today. Blood pressure borderline hypotensive, however, patient remains asymptomatic. Continue furosemide and Aldactone as previously ordered. Telemetry reveals rate controlled atrial fibrillation with ventricular pacing. Continue current dose of metoprolol, 50 mg twice daily in addition to digoxin. 2D transthoracic echocardiographic images reviewed demonstrating severe tricuspid regurgitation. Etiology of the tricuspid regurgitation is not well defined. The right ventricular pacemaker lead is not clearly implicated, however, is within the differential diagnosis. Right ventricular function appears normal without significant pulmonary hypertension. Recommend continued medical management. I long discussion with the patient regarding importance of sodium and fluid restriction. Admits to excessive water consumption. She will attempt to curb intake in the outpatient setting. Outpatient cardiology follow-up in 1 week. Admission and Anticipated Discharge Date Admission Date: March 27, 2021 Subjective Patient seen and examined the bedside. Doing well today. Borderline hypotensive overnight. No lightheadedness, dizziness, syncope, or near syncope. Telemetry reveals atrial fibrillation with ventricular pacing at 70 bpm. No evidence of rapid ventricular response. Edema has nearly resolved. No orthopnea or PND. Denies focal weakness, visual changes, slurred speech, or paresthesias. Tolerating current medications. Voices concern regarding hypotensive blood pressure readings. Review of Systems Review of Systems: All systems reviewed & are unremarkable except as noted in Subjective Physical Exam Constitutional: well developed and well nourished; no acute distress Respiratory: normal respiratory effort; no respiratory distress and no labored breathing Auscultation: no crackles, no rales, no rhonchi and no wheezes Cardiovascular: Rate/Rhythm: + irregularly irregular Heart Sounds: normal S1, normal S2 and + murmur (1-2/6 midsystolic murmur heard best at the left sternal border) Vessels: no JVD Extremities: + edema (Trace to mild bilateral pedal and ankle edema) Gastrointestinal (Abdomen): Inspection/Auscultation: normal bowel sounds Percussion/Palpation: abdomen soft; abdomen nontender, no guarding and abdomen not rigid Neurologic: CN's II-XI intact bilaterally; no focal motor deficits Motor/Sensory: no tremor Psychiatric: A+Ox3, euthymic affect Results & Data ([place]) Vital Signs (Past 12 Hours) Vital Signs Temp Pulse Pulse Resp BP Pulse Ox 04/01/21 07:22 36.4 C L 73 18 93/57 L 100 04/01/21 07:06 71 04/01/21 03:18 36.6 C 72 20 88/53 L 97 03/31/21 22:17 36.6 C 82 20 86/53 L 96
[2021-04-01 09:31] LABS: BUN Creatinine Ratio 36.2 (10-20); Calcium 7.9 mg/dl (8.5-10.1); Creatinine Clr Calc Pharmacy 53.6 ml/min; Est GFR (African American) 89.1 ml/min; Est GFR (Non-African American) 76.9 ml/min; Potassium 4.6 mmol/L (3.5-5.1)
[2021-04-01] MEDS: DIGOXIN 0.125 MG TAB PO SCH (16:04)
[2021-04-01] MEDS: WARFARIN SOD 5 MG TAB PO SCH (16:04)
--- NOTE | 2021-04-01 18:58 | Hospitalist Progress Note ---
Date of Service April 01, 2021 Assessment & Plan (1) Acute on chronic diastolic (congestive) heart failure: 70 y/o F with PMH persistent atrial fibrillation, on warfarin, s/p DANAE guided DCCV in 10/2018 with recurrent atrial fibrillation s/p cardioversion 05/05/2020, 09/05/2020 with recurrent atrial fibrillation 12/2020, tachybrady syndrome s/p PPM, diastolic CHF, history of gastric bypass, COPD, depression who presented to ED at the referral of cardiology clinic for BLE edema. 10 pound weight gain, BLE edema x 1 month. BNP: 3150 on admission CXR: No acute cardiopulmonary findings Echocardiogram :. Severe LA enlargement noted. This is chronic. Severe tricuspid regurgitation and RA enlargement noted. All 3 tricuspid leaflets are relatively well visualized and appear to coapt. TR certainly has progressed in severity compared to images of the 2019 outpatient echo (pacemaker lead in place then as well). Received IV lasix, then transition to Po Lasix Cardiology on board Continue Lasix and Aldactone Clinically improves (2) A-fib: coumadin was on hold for high INR S/P DANAE guided DCCV in 10/2018 with recurrent atrial fibrillation, s/p cardioversion 05/05/2020, 09/05/2020 with recurrent atrial fibrillation 12/2020. 02/04 sotalol discontinued. Recent hospitalization for Tikosyn. Tikosyn discontinued 02/2021. Pacemaker interrogation in cardiology clinic revealed atrial fibrillation with RVR 130 for the past month. Dr Ivey's office note reported pt may need an upgrade to BiV ppm and AVN ablation Continue metoprolol resumed 50 mg BID with holding parameters for hypotension Cardiology on board Continue Digoxin that was adding during the hospital course Ok from cardiology standpoint to discharge home (3) Supratherapeutic INR: INR 1.6 today. Continue Coumadin (4) Tachy-corin syndrome: s/p PPM Pacemaker interrogation in clinic today revealed atrial fibrillation with RVR 130 for the past month Follows with Dr. Ivey . Her office note reported pt may need an upgrade to BiV ppm and AVN ablation (5) COPD (chronic obstructive pulmonary disease): No acute exacerbation -Continue Advair, as needed albuterol, Accolate (6) Anemia: Hgb: 11. Hgb: 9 and 01/2021 No signs of bleeding -Continue iron supplement DVT Prophylaxis -On Coumadin, Full code as per discussion with pt Follows with Dr Olvera for routine care Will discharge home tomorrow Admission and Anticipated Discharge Date Admission Date: March 27, 2021 Subjective Patient was seen and examined Lying in bed comfortable with no acute distress Patient said that she feels fine Denies any chest pain, palpitation, dizziness, shortness of breath. Review of Systems Review of Systems: All systems reviewed & are unremarkable except as noted in Subjective Physical Exam Physical Exam: General- No acute distress Head- atraumatic Eyes- PERRL, EOMI, ENT- oropharynx clear Neck- supple, no JVD Lungs- clear to auscultation Heart- regular rhythm; no murmur Abdomen- normal bowel sounds, soft, nontender Extremities- no calf tenderness Neuro- alert, oriented x 3; PERRL, EOMI; no facial palsy; no dysarthria Skin- warm & dry Results & Data Results & Data ([facility]) Vital Signs (Past 12 Hours) Vital Signs Temp Pulse Pulse Resp BP Pulse Ox 04/01/21 16:04 64 04/01/21 15:05 36.5 C 71 18 103/68 100 04/01/21 15:00 70 04/01/21 11:00 36.7 C 73 18 98/68 L 98 04/01/21 07:22 36.4 C L 73 18 93/57 L 100 04/01/21 07:06 71
[2021-04-01] MEDS: ACETAMINOPHEN 325 MG TAB PO PRN (20:20)
[2021-04-02] MEDS: CHOLECALCIFEROL 1,000 UNITS 25 MCG TAB PO SCH (08:39)
[2021-04-02] MEDS: SERTRALINE HCL 50 MG TABLET PO SCH (08:40)
[2021-04-02] MEDS: MAGNESIUM OXIDE 400 MG TAB PO SCH (08:40)
[2021-04-02] MEDS: METOPROLOL SUCC 50MG EXT REL TAB PO SCH (08:40)
[2021-04-02] MEDS: SPIRONOLACTONE 12.5 MG TAB PO SCH (08:41)
[2021-04-02] MEDS: FUROSEMIDE 40 MG TAB PO SCH (08:42)
[2021-04-02] MEDS: FLUTICASONE/VILANTEROL 100/25MCG 14 PUFFS/INHALER INH SCH (08:43)
[2021-04-02 09:15] LABS: INR 2.5 (0.9-1.1); Prothrombin Time 23.8 Seconds (9.0-12.0)
--- NOTE | 2021-04-02 10:30 | Cardiology Progress Note ---
Date of Service April 02, 2021 Assessment & Plan (1) Chronic heart failure with preserved ejection fraction (HFpEF): (2) Atrial fibrillation with rapid ventricular response: (3) Severe tricuspid regurgitation: Continue furosemide and Aldactone as previously ordered. Telemetry reveals rate controlled atrial fibrillation with ventricular pacing. Continue current dose of metoprolol, 50 mg twice daily in addition to digoxin. 2D transthoracic echocardiographic images reviewed demonstrating severe tricuspid regurgitation. Etiology of the tricuspid regurgitation is not well defined. The right ventricular pacemaker lead is not clearly implicated, however, is within the differential diagnosis. Right ventricular function appears normal without significant pulmonary hypertension. Recommend continued medical management. I long discussion with the patient regarding importance of sodium and fluid restriction. Admits to excessive water consumption. She will attempt to curb intake in the outpatient setting. Outpatient cardiology follow-up in 1-2 weeks. Admission and Anticipated Discharge Date Admission Date: March 27, 2021 Subjective Patient seen and examined the bedside. Denies chest pain or unusual shortness of breath. Edema has resolved. Telemetry reveals rate controlled atrial fibrillation with demand ventricular pacing. Borderline asymptomatic hypotension persist. Patient tolerating medications. Review of Systems Review of Systems: All systems reviewed & are unremarkable except as noted in Subjective Physical Exam Constitutional: well developed and well nourished; no acute distress Respiratory: normal respiratory effort; no respiratory distress and no labored breathing Auscultation: no crackles, no rales, no rhonchi and no wheezes Cardiovascular: Rate/Rhythm: + irregularly irregular Heart Sounds: normal S1, normal S2 and + murmur (1-2/6 midsystolic murmur heard best at the left sternal border) Vessels: no JVD Extremities: + edema (Trace to mild bilateral pedal and ankle edema) Gastrointestinal (Abdomen): Inspection/Auscultation: normal bowel sounds Percussion/Palpation: abdomen soft; abdomen nontender, no guarding and abdomen not rigid Neurologic: CN's II-XI intact bilaterally; no focal motor deficits Motor /Sensory: no tremor Psychiatric: A+Ox3, euthymic affect Results & Data ([facility]) Vital Signs (Past 12 Hours) Vital Signs Temp Pulse Pulse Pulse Resp BP BP 04/02/21 08:37 87 98/66 L 04/02/21 07:15 36.6 C 77 18 114/67 04/02/21 07:00 82 04/02/21 02:53 36.7 C 85 16 93/55 L 04/01/21 22:36 36.5 C 77 16 97/61 L Pulse Ox 04/02/21 08:37 04/02/21 07:15 98 04/02/21 07:00 04/02/21 02:53 97 04/01/21 22:36 96
[2021-04-02] MEDS: ACETAMINOPHEN 325 MG TAB PO PRN (10:42)
--- NOTE | 2021-04-02 12:04 | Hospitalist Progress Note ---
Date of Service April 02, 2021 Assessment & Plan (1) Acute on chronic diastolic (congestive) heart failure: 70 y/o F with PMH persistent atrial fibrillation, on warfarin, s/p DANAE guided DCCV in 10/2018 with recurrent atrial fibrillation s/p cardioversion 05/05/2020, 09/05/2020 with recurrent atrial fibrillation 12/2020, tachybrady syndrome s/p PPM, diastolic CHF, history of gastric bypass, COPD, depression who presented to ED at the referral of cardiology clinic for BLE edema. 10 pound weight gain, BLE edema x 1 month. BNP: 3150 on admission CXR: No acute cardiopulmonary findings Echocardiogram :. Severe LA enlargement noted. This is chronic. Severe tricuspid regurgitation and RA enlargement noted. All 3 tricuspid leaflets are relatively well visualized and appear to coapt. TR certainly has progressed in severity compared to images of the 2019 outpatient echo (pacemaker lead in place then as well). Received IV lasix, then transition to Po Lasix Cardiology on board Case discussed with cardiology about borderline BP Continue Lasix and Aldactone as per cardiology Ok from cardiology standpoint to discharge home Follow up with cardiology in 1-2 weeks (2) A-fib: coumadin was on hold for high INR S/P DANAE guided DCCV in 10/2018 with recurrent atrial fibrillation, s/p cardioversion 05/05/2020, 09/05/2020 with recurrent atrial fibrillation 12/2020. 02/04 sotalol discontinued. Recent hospitalization for Tikosyn. Tikosyn discontinued 02/2021. Pacemaker interrogation in cardiology clinic revealed atrial fibrillation with RVR 130 for the past month. Dr Ivey's office note reported pt may need an upgrade to BiV ppm and AVN ablation Continue metoprolol resumed 50 mg BID with holding parameters for hypotension Cardiology on board Continue Digoxin that was adding during the hospital course Ok from cardiology standpoint to discharge home (3) Supratherapeutic INR: INR 2.5 today. Continue Coumadin Follow up with the coumadin clinic (4) Tachy-corin syndrome: s/p PPM Pacemaker interrogation in clinic today revealed atrial fibrillation with RVR 130 for the past month Follows with Dr. Ivey . Her office note reported pt may need an upgrade to BiV ppm and AVN ablation (5) COPD (chronic obstructive pulmonary disease): No acute exacerbation -Continue Advair, as needed albuterol, Accolate (6) Anemia: Hgb: 11. Hgb: 9 and 01/2021 No signs of bleeding Continue iron supplement DVT Prophylaxis On Coumadin Full code as per discussion with pt Follows with Dr Olvera for routine care Will discharge home today Admission and Anticipated Discharge Date Admission Date: March 27, 2021 Subjective Pt was seen and examined for follow up of hypotension Sitting in chair with no distress and comfortable Pt said that she feels fine BP has been running in the 90's systolic and asymptomatic Denies any chest pain, palpitation, dizziness and SOB Review of Systems Review of Systems: All systems reviewed & are unremarkable except as noted in Subjective Physical Exam Physical Exam: General- No acute distress Head- atraumatic Eyes- PERRL, EOMI, ENT- oropharynx clear Neck- supple, no JVD Lungs- clear to auscultation Heart- regular rhythm; no murmur Abdomen- normal bowel sounds, soft, nontender Extremities- no calf tenderness Neuro- alert, oriented x 3; PERRL, EOMI; no facial palsy; no dysarthria Skin- warm & dry Results & Data Results & Data ([facility]) Vital Signs (Past 12 Hours) Vital Signs Temp Pulse Pulse Pulse Resp BP BP 04/02/21 10:59 36.6 C 62 18 95/65 L 04/02/21 08:37 87 98/66 L 04/02/21 07:15 36.6 C 77 18 114/67 04/02/21 07:00 82 04/02/21 02:53 36.7 C 85 16 93/55 L Pulse Ox 04/02/21 10:59 94 04/02/21 08:37 04/02/21 07:15 98 04/02/21 07:00 04/02/21 02:53 97
--- NOTE | 2021-04-06 09:15 | Discharge Summary ---
Date of Service April 02, 2021 Admission HPI Per Admitting Provider Pt is 70 y/o F with PMH persistent atrial fibrillation, on warfarin, s/p DANAE guided DCCV in 10/2018 with recurrent atrial fibrillation s/p cardioversion 05/05/2020, 09/05/2020 with recurrent atrial fibrillation 12/2020, tachybrady syndrome s/p PPM, diastolic CHF, history of gastric bypass, COPD, depression who presented to ED at the referral cardiology clinic for BLE edema. Patient with history recent hospitalization for initiation of Tikosyn. Patient had converted to NSR and was discharged on Tikosyn 250 mg twice daily secondary to borderline prolonged QTC. Since hospital discharge patient developed recurrent shortness of breath, dizziness that she usually has with atrial fibrillation. Had followed up with cardiology and was found to be back in A. fib. Patient reports chronic shortness of breath with exertion at baseline, does not feel she has increased shortness of breath. Does report 10 pound weight gain over the past month and also reports increased lower extremity edema over the past month. Patient states over the past week has had some weeping to BLE. Was seen by Dr. Ivey today. Pacemaker interrogation today revealed atrial fibrillation with RVR 130 for the past month. She was referred to ER for further evaluation and management of fluid overload. Denies fever/chills, diaphoresis, N/V/D/C, DAINEL, syncope, recent fall, vision changes, neck pain, CP, cough, sore throat, choking, otalgia, rhinorrhea, abdominal pain, paresthesias, rashes, urinary symptoms. Admission Exam Per Admitting Provider General: no acute distress, WDWN Head: normocephalic, atraumatic Eyes: conjunctiva non-injected, anicteric ENT: normal inspection external ears, nose, mucous membranes moist Neck: supple, trachea midline Lungs: clear, no respiratory distress, no wheezing/rhonchi/rales CV: irregularly irregular, rate 78, 2-3+ edema BLE extending to thighs Abd: normal BS, soft, non-tender Ext: no cyanosis, no calf tenderness Neuro: A&O x 3, no focal deficits noted, normal affect Skin: warm, dry Principal Diagnosis Acute on chronic diastolic (congestive) heart failure Atrial Fibrillation Supratherapeutic INR Tachy-corin syndrome COPD (chronic obstructive pulmonary disease) Anemia Discharge Exam General- No acute distress Head- atraumatic Eyes- PERRL, EOMI, ENT- oropharynx clear Neck- supple, no JVD Lungs- clear to auscultation Heart- regular rhythm; no murmur Abdomen- normal bowel sounds, soft, nontender Extremities- no calf tenderness Neuro- alert, oriented x 3; PERRL, EOMI; no facial palsy; no dysarthria Skin- warm & dry Discharge Data Allergies Allergy/AdvReac Type Severity Reaction Status Date / Time oxycodone AdvReac Intermediate GI SYMPTOMS Verified 02/11/21 13:19 Consultations 03/27/21 16:37 ED Decision to Admit Stat 03/27/21 20:04 Consult Cardiology Routine Consult Cardiology Routine Ordered Studies XR chest 1V portable CLINICAL HISTORY: Dyspnea COMPARISON STUDY: Chest CT December 25, 2020. Chest radiograph February 03, 2021. FINDINGS: Lung volumes are normal. Lungs are clear. There is no pneumothorax or pleural effusion. Cardiac size is normal. Mediastinal contours are normal. There is no evidence for pulmonary edema. Dual-lead left subclavian pacemaker is in place. IMPRESSION: No acute cardiopulmonary findings. No change in appearance of the chest. ACT 112: Negative or not required by law. Electronically signed by: Salomon Amezcua M.D. 03/27/2021 3:47 PM Dictated: 03/27/21 154Transcribed: 03/27/21 154 Hospital Course (1) Acute on chronic diastolic (congestive) heart failure: 70 y/o F with PMH persistent atrial fibrillation, on warfarin, s/p DANAE guided DCCV in 10/2018 with recurrent atrial fibrillation s/p cardioversion 05/05/2020, 09/05/2020 with recurrent atrial fibrillation 12/2020, tachybrady syn drome s/p PPM, diastolic CHF, history of gastric bypass, COPD, depression who presented to ED at the referral of cardiology clinic for BLE edema. 10 pound weight gain, BLE edema x 1 month. BNP: 3150 on admission CXR: No acute cardiopulmonary findings Echocardiogram :. Severe LA enlargement noted. This is chronic. Severe tricuspid regurgitation and RA enlargement noted. All 3 tricuspid leaflets are relatively well visualized and appear to coapt. TR certainly has progressed in severity compared to images of the 2019 outpatient echo (pacemaker lead in place then as well). Received IV lasix, then transition to Po Lasix Cardiology on board Case discussed with cardiology about borderline BP Continue Lasix and Aldactone as per cardiology Ok from cardiology standpoint to discharge home Follow up with cardiology in 1-2 weeks (2) A-fib: coumadin was on hold for high INR S/P DANAE guided DCCV in 10/2018 with recurrent atrial fibrillation, s/p cardi oversion 05/05/2020, 09/05/2020 with recurrent atrial fibrillation 12/2020. 02/04 sotalol discontinued. Recent hospitalization for Tikosyn. Tikosyn discontinued 02/2021. Pacemaker interrogation in cardiology clinic revealed atrial fibrillation with RVR 130 for the past month. Dr Ivey's office note reported pt may need an upgrade to BiV ppm and AVN ablation Continue metoprolol resumed 50 mg BID with holding parameters for hypotension Cardiology on board Continue Digoxin that was adding during the hospital course Ok from cardiology standpoint to discharge home (3) Supratherapeutic INR: INR 2.5 today. Continue Coumadin Follow up with the coumadin clinic (4) Tachy-corin syndrome: s/p PPM Pacemaker interrogation in clinic today revealed atrial fibrillation with RVR 130 for the past month Follows with Dr. Ivey . Her office note reported pt may need an upgrade to BiV ppm and AVN ablation (5) COPD (chronic obstructive pulmonary disease): No acute exacerbation -Continue Advair, as needed albuterol, Accolate (6) Anemia: Hgb: 11. Hgb: 9 and 01/2021 No signs of bleeding Continue iron supplement DVT Prophylaxis On Coumadin Full code as per discussion with pt Follows with Dr Olvera for routine care Will discharge home today Total Time Total Time Spent Total Time Spent (In Minutes): 35 minutes Total Time Includes: Examination of the Patient, Discharge Planning, Medication Reconciliation, Communication With Other Providers and Other Discharge Plan Discharge Items Patient Disposition: Home - Self-Care Reason For Visit: FLUID OVERLOAD Discharge Diagnosis: Acute on chronic diastolic heart failure Atrial fibrillation on coumadin Activity: Resume your previous activity Non-emergency contact: Primary Care Provider Call non-emergency contact if: you have any medication questions Follow-up/Referrals: Satinder Riojas MD [Physician] - Russell Olvera DO [Primary Care Provider] - (Date & Time 04/07/2021 11:20 AM Provider DO [facility] ) Diet: Heart Healthy Fluids: 1800ml (7 cups) [facility] Attending Provider Instructions: Please take all medications as instructed on discharge list below. It is recommended that you follow-up with your primary care physician within 1-2 weeks of hospital discharge to ensure you are still doing well. Please call if you have any questions or problems. You can reach a [facility] hospitalist on duty at [facility] 24 hours a day by calling [phone] [facility] Health Support Specialist Provider Instructions: Call your Primary Care doctor if any of the following symptoms or problems start or get worse: * Shortness of breath or difficulty breathing * Wake up at night short of breath * Chest pain * Cough * Swelling of your hands, feet, or legs * More fatigued or tired with your normal activity * Palpitations - sudden fast heart beats WEIGHT * Weigh yourself every morning after using the bathroom. * Use the same scale. * Wear the same amount of clothing. * Write your weight down on a chart. * Call your Primary Care doctor if you gain more than 2-3 pounds in 1-2 days. MEDICATIONS * Use this discharge instruction sheet for medication instructions. * Take your medications at the time your doctor ordered. * Do not skip a dose of your medicines. * If you miss a dose of medicine, take it as soon as possible, but DO NOT DOUBLE A DOSE. * Read your medicine information when you get home. * Know all of the side effects of your medicine. If in doubt, ask your pharmacist * Call your Primary Care doctor's office if you have any side effects. * Be sure all of your doctors know what medicine and herbs you take (including cold, flu, and herbal medicine). Take the following with you to your follow-up doctor appointments: * Weight Chart * Medication List * List of questions Do not drink excessive alcohol, beer or wine. Pending Studies at Discharge: No Stand-Alone Forms: My [facility], Smoking Cessation Medications and DC Order Prescriptions: New digoxin [Digitek] 125 mcg (0.125 mg) Tablet 125 mcg PO DAILY Qty: 30 RF: 3 spironolactone 25 mg Tablet 12.5 mg PO DAILY Qty: 15 RF: 3 Continued fluticasone propion-salmeterol [Advair Diskus] 250-50 mcg/dose Blister With Device 1 inh INHALATION BID RF: 0 warfarin 2.5 mg Tablet 2.5 mg PO DAILY@1600 RF: 0 albuterol sulfate [Ventolin HFA] 90 mcg/actuation Hfa Aerosol Inhaler 2 puff INHALATION QID PRN (Reason: Shortness Of Breath Or Wheezing) RF: 0 sertraline [Zoloft] 50 mg Tablet 50 mg PO QAM RF: 0 Flintstones Tab Chew 100 mcg Tablet,Chewable 1 tab PO QAM RF: 0 cholecalciferol (vitamin D3) [Vitamin D3] 2,000 unit Capsule 2,000 unit PO QAM RF: 0 magnesium oxide 400 mg (241.3 mg magnesium) Tablet 400 mg PO QAM Qty: 34 RF: 0 Vitron-C 65 mg iron- 125 mg Tablet,Delayed Release (Dr/Ec) 1 tab PO BID RF: 0 metoprolol succinate 50 mg tablet extended release 24 hr 50 mg PO BID RF: 0 furosemide 40 mg Tablet 40 mg PO DAILY RF: 0 zafirlukast [Accolate] 20 mg tablet 20 mg PO BID RF: 0 Discharge Orders: Discharge Order (Routine); Ordered 04/02/21 Ordered By: Sri Gao Admission Data Admit Date/Time: 03/27/21 16:27 Attending Provider: Sri Gao Admit Provider: Hima Mclain Primary Care Provider: Russell Olvera Other Providers: Hima Mclain ; Sheng Fowler ; Satinder Riojas ; Hannah Abreu Other Interventions: Discharge Summary Assessment (RN) Last Done: 04/02/21 12:35
== END 2021-04-02 14:15 | disposition home or self-care (01) | DRG 292 ==
LOC: ED 12:50 → 2S 16:00 → EDINP 16:27 → SUATTDRO 16:27 → 2S 16:27 → 2W 03-31 15:19

== ENCOUNTER 2021-08-06 15:05 | Inpatient (IN) ==
--- NOTE | 2021-08-06 15:59 | XRay Report ---
XR chest 1V portable HISTORY: Atypical Chest Pain COMPARISON: Chest 03/27/2021. FINDINGS: A left-sided pacemaker is again noted. No pleural effusions. No pneumothorax. There are low lung volumes. The heart is top normal in size. No focal lung consolidations to suggest pneumonia. No evidence for pulmonary edema. Small lobular density overlying the left hemidiaphragm is consistent w ith a fat-containing Bochdalek hernia. This remains unchanged. IMPRESSION: No significant change compared to the prior study. No acute process. ACT 112: Negative or not required by law. Electronically signed by: Harish Mckeon M.D. 08/06/2021 3:58 PM
[2021-08-06 16:04] LABS: Basophils # (auto) 0.02 K/uL (0-0.2); Basophils % (auto) 0.2 %; Eosinophils # (auto) 0.22 K/uL (0-0.5); Eosinophils % (auto) 2.6 %; Hematocrit (blood only) 35.8 % (37-47); Hemoglobin 11.9 g/dL (12.0-16.0); Immature Granulocytes # (auto) 0.02 K/uL (0.00-0.02); Immature Granulocytes % (auto) 0.2 %; Lymphocytes # (auto) 1.82 K/uL (1.2-3.4); Lymphocytes % (auto) 21.8 %; Mean Corpuscular Hemoglobin 29.8 pg (25-34); Mean Corpuscular Hgb Conc 33.2 g/dL (32-36); Mean Corpuscular Volume 89.7 fL (80-100); Mean Platelet Volume 9.8 fL (7.4-10.4); Monocytes # (auto) 0.48 K/uL (0.11-0.59); Monocytes % (auto) 5.8 %; Neutrophils # (auto) 5.78 K/uL (1.4-6.5); Neutrophils % (auto) 69.4 %; Platelet Count 277 K/uL (130-400); RDW Coefficient of Variation 17.5 % (11.5-14.5); RDW Standard Deviation 57.7 fL (36.4-46.3); Red Blood Count 3.99 M/uL (4.2-5.4); White Blood Count 8.34 K/uL (4.8-10.8)
[2021-08-06 16:15] LABS: INR 2.7 (0.9-1.1); Partial Thromboplastin Ratio 1.4; Partial Thromboplastin Time 36.2 Seconds (21.0-31.0); Prothrombin Time 25.1 Seconds (9.0-12.0)
[2021-08-06 16:22] LABS: Alanine Aminotransferase 29 U/L (12-78); Albumin Level 2.6 gm/dl (3.4-5.0); Aspartate Aminotransferase 25 U/L (15-37); BUN Creatinine Ratio 21.5 (10-20); Blood Urea Nitrogen 19 mg/dl (7-18); Carbon Dioxide 26 mmol/L (21-32); Chloride 108 mmol/L (98-107); Creatinine Clr Calc Pharmacy 43.8 ml/min; Est GFR (African American) 78.8 ml/min; Glucose 78 mg/dl (70-99); Potassium 3.9 mmol/L (3.5-5.1); Sodium 139 mmol/L (136-145)
[2021-08-06 16:27] LABS: Albumin Globulin Ratio 0.7 (0.9-2); Alkaline Phosphatase 104 U/L (45-117); Bilirubin,Total 0.6 mg/dl (0.2-1); Globulin 3.5 gm/dl (2.5-4.0); Total Protein 6.1 gm/dl (6.4-8.2); Troponin I < 0.015 ng/ml (0-0.045)
--- NOTE | 2021-08-06 17:25 | Emergency Department Note ---
History of Present Illness General Chief complaint: Hypotension Stated complaint: HEART TROUBLES, LOW BP Time Seen by Provider: 08/06/21 17:05 Source: patient History of Present Illness Provider complaint: Shortness of breath and hypotension Onset (ago): day(s) Location: chest Severity: moderate Pain Consistency: + intermittent Maximum Pain Intensity: 0 Quality: + other (Short of breath with blood pressures in the 80s) Exacerbated By: + other (Activity) Associated symptoms: + chest pain, + headaches (Now resolved), + loss of appetite, + nausea/vomiting (Nausea without vomiting), + shortness of breath and + weakness; no cough or no fever/chills This is a 71-year-old female sent here from her doctor's office for persistent dyspnea on exertion as well as low blood pressures. Her blood pressure was 78/40 recently. She states over the past week she has had low blood pressures in the 80s. She states it comes on at any time. She could be sitting there and her blood pressure will be low when she checks it. She does feel lightheaded when this occurs. She states she feels worse when she walks around. She complains of nausea without vomiting and has had no appetite but denies any abdominal pain. She does have dumping syndrome so she has watery diarrhea con stantly. She does state it is dark due to her iron pills but she does not see any blood. She has had chest pain intermittently throughout the week. She describes it as a transient sharp pain in her sternum. It does not radiate to her back or her arms or neck. She is not currently having any. She denies any fever or cough or cold symptoms. She has had intermittent weight gain. They have increased her Lasix for the past 2 days but it is not helping her breathing. She has chronic leg swelling which is improved when she lifts her legs up. Home Medications Medication Instructions Recorded Confirmed Type albuterol sulfate 90 mcg/actuation 2 puff INHALATION QID PRN 07/20/18 08/06/21 History aerosol inhaler (Ventolin HFA) cholecalciferol (vitamin D3) 50 2,000 unit PO QAM 07/20/18 08/06/21 History mcg (2,000 unit) capsule (Vitamin D3) fluticasone 250 mcg-salmeterol 50 1 inh INHALATION BID 07/20/18 08/06/21 History mcg/dose blistr powdr for inhalation (Advair Diskus) pediatric multivitamin no.7-folic 1 tab PO QAM 07/20/18 08/06/21 History acid 100 mcg chewable tablet (Flintstones Tab Chew) sertraline 50 mg tablet (Zoloft) 50 mg PO QAM 07/20/18 08/06/21 History warfarin 2.5 mg tablet See Rx Instructions .ROUTE .COMPLEX 07/20/18 08/06/21 History magnesium oxide 400 mg (241.3 mg 400 mg PO QAM #34 tab 04/23/20 08/06/21 Rx magnesium) tablet zafirlukast 20 mg tablet (Accolate) 20 mg PO BID 12/25/20 08/06/21 History iron,carbonyl 65 mg-vitamin C 125 1 tab PO BID 02/11/21 08/06/21 History mg tablet,delayed release (Vitron-C) furosemide 40 mg tablet 40 mg PO DAILY 03/27/21 08/06/21 History metoprolol succinate 50 mg 50 mg PO BID 03/27/21 08/06/21 History tablet,extended release 24 hr digoxin 125 mcg (0.125 mg) tablet 125 mcg PO DAILY #30 tab 04/01/21 08/06/21 Rx (Digitek) spironolactone 25 mg tablet 12.5 mg PO DAILY #15 tab 04/01/21 08/06/21 Rx potassium chloride 10 mEq 20 meq PO DAILY 08/06/21 08/06/21 History tablet,extended release(part/cryst) Allergies Allergy/AdvReac Type Severity Reaction Status Date / Time oxycodone AdvReac Intermediate GI SYMPTOMS Verified 08/06/21 17:18 Past Med/Surg History Medical History A-fib S/P DANAE guided DCCV 10/2018. Reverted back to afib 03/2020. External DCCV 04/23/20. 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/2018 with DANAE/cardioversion Tremor Surgical History H/O colonoscopy H/O gastric bypass H/O hernia repair H/O ventral hernia repair History of cholecystectomy Pacemaker LAST CHECK AUG 2020 S/P appendectomy S/P small bowel resection Family History Other Cancer Hypertension Lung disease Social History Smoking Status: Never smoker Second Hand Exposure: Yes; Do You Dip or Chew Tobacco: No; Tobacco Cessation Education Requested by Patient: No Hx Alcohol Use: No Hx Substance Use: No Preferred Language: Czech Communication Ability: Effective Lining Cutter Required: No Beliefs That Will Affect Care: None Current Living Situation: Spouse current occupational status: employed Other Information That Helps Us Care for You: No Feels Safe at Home: Yes Safety Concerns: Feels Safe At This Time Assistive Devices: Cane and Glasses Review of Systems See HPI for pertinent positives & negatives. and A total of 10 systems reviewed and were otherwise negative Physical Exam Vital Signs Vital Signs - 24 hr 08/06/21 15:11 08/06/21 15:41 08/06/21 15:46 Temperature 36.1 C L Temperature Source Temporal Artery Scan Pulse Rate 74 Pulse Rate [Apical] 73 Pulse Rate from SpO2 Sensor Respiratory Rate 18 18 Respiratory Effort / Characteristics Non-Labored Respiratory Depth Normal Blood Pressure 106/71 Blood Pressure [Right Arm] 106/69 Blood Pressure Mean 82 Blood Pressure Mean [Right Arm] 81 Pulse Oximetry 99 Oxygen Delivery Method Room Air Room Air Sepsis Recent Fever Within 48 Hours No Sepsis New/Unexplained Change in Mental Status No Sepsis Action Taken by Nursing No Action Required 08/06/21 16:00 08/06/21 16:23 08/06/21 16:30 Temperature Temperature Source Pulse Rate 77 70 Pulse Rate [Apical] 70 Pulse Rate from SpO2 Sensor 77 70 Respiratory Rate 10 L 18 Respiratory Effort / Characteristics Respiratory Depth Blood Pressure 101/73 105/67 Blood Pressure [Right Arm] Blood Pressure Mean 82 79 Blood Pressure Mean [Right Arm] Pulse Oximetry 100 100 Oxygen Delivery Method Room Air Sepsis Recent Fever Within 48 Hours Sepsis New/Unexplained Change in Mental Status Sepsis Action Taken by Nursing 08/06/21 17:00 08/06/21 17:30 08/06/21 18:00 Temperature Temperature Source Pulse Rate 74 70 Pulse Rate [Apical] Pulse Rate from SpO2 Sensor 69 73 Respiratory Rate 13 13 Respiratory Effort / Characteristics Respiratory Depth Blood Pressure 100/69 107/70 99/71 L Blood Pressure [Right Arm] Blood Pressure Mean 79 82 80 Blood Pressure Mean [Right Arm] Pulse Oximetry 98 99 Oxygen Delivery Method Room Air Room Air Sepsis Recent Fever Within 48 Hours Sepsis New/Unexplained Change in Mental Status Sepsis Action Taken by Nursing 08/06/21 18:30 08/06/21 19:00 08/06/21 19:30 Temperature Temperature Source Pulse Rate Pulse Rate [Apical] Pulse Rate from SpO2 Sensor 74 86 Respiratory Rate Respiratory Effort / Characteristics Respiratory Depth Blood Pressure 115/80 109/68 Blood Pressure [Right Arm] Blood Pressure Mean 91 81 Blood Pressure Mean [Right Arm] Pulse Oximetry 95 75 L Oxygen Delivery Method Sepsis Recent Fever Within 48 Hours Sepsis New/Unexplained Change in Mental Status Sepsis Action Taken by Nursing 08/06/21 20:00 08/06/21 20:35 08/06/21 21:00 Temperature Temperature Source Pulse Rate 97 H 70 Pulse Rate [Apical] Pulse Rate from SpO2 Sensor 72 71 Respiratory Rate 48 H 19 Respiratory Effort / Characteristics Respiratory Depth Blood Pressure 111/50 L 119/63 Blood Pressure [Right Arm] Blood Pressure Mean 70 81 Blood Pressure Mean [Right Arm] Pulse Oximetry 100 84 L Oxygen Delivery Method Sepsis Recent Fever Within 48 Hours Sepsis New/Unexplained Change in Mental Status Sepsis Action Taken by Nursing Constitutional: Vital signs reviewed. Eyes: Pupils are equal round reactive to light. Conjunctiva are noninjected. ENT: Pharynx is clear without erythema or exudate. Mucous membranes are moist. Neck supple without meningeal signs. Respiratory: Bibasilar crackles. Breath sounds are equal bilaterally. Cardiovascular: Regular rate and rhythm. No rubs or gallops. Pulses symmetric in the extremities. GI: Soft, nondistended and nontender. Bowel sounds are present. No pulsatile mass. Musculoskeletal: Mild pitting edema to lower extremities. No lower extremity tenderness. Integumentary: No cyanosis. or jaundice. Neurological: The patient is awake and alert. No focal deficits. Psychiatric: Normal affect. Not anxious appearing. Course Administered Medications Miscellaneous (Accolate~Order Awaiting Action) 1 ea N/A QS ISHAN Stop: 09/06/21 00:44 Last Admin: 08/07/21 01:14 Dose: Not Given Documented by: [id number] Discontinued Medications Acetaminophen (Acetaminophen 325 Mg Tab) 650 mg PO NOW STA Stop: 08/06/21 19:49 Last Admin: 08/06/21 19:57 Dose: 650 mg Documented by: [id number] Albumin Human (Albumin 25%) 12.5 gm in 50 mls @ 50 mls/hr IV Q1H ISHAN Stop: 08/06/21 22:44 Last Infusion: 08/06/21 23:14 Dose: 0 mls/hr Documented by: [id number] Admin: 08/06/21 22:04 Dose: 50 mls/hr Documented by: [id number] Infusion: 08/06/21 22:04 Dose: 50 mls/hr Documented by: [id number] Admin: 08/06/21 21:08 Dose: 50 mls/hr Documented by: [id number] Medical Decision Making Differential Diagnosis CHF exacerbation, unstable angina, CA, pleurisy, pneumonia Medical Records Attestation: I reviewed the patient's medical records. I did perform a limited focused review of portions of the patient's old chart on the electronic medical record. The patient was admitted in March for CHF exacerbation. Home Medications Current Medication List: was personally reviewed by me Laboratory Data Attestation: I reviewed the patient's lab results. Result diagrams: 08/06/21 15:50 08/06/21 15:50 Lab Results 08/06/21 08/06/21 08/06/21 Range/Units 15:50 15:50 15:50 WBC 8.34 (4.8-10.8) K/uL RBC 3.99 L (4.2-5.4) M/uL Hgb 11.9 L (12.0-16.0) g/dL Hct 35.8 L (37-47) % MCV 89.7 (80-100) fL MCH 29.8 (25-34) pg MCHC 33.2 (32-36) g/dL RDW Std Deviation 57.7 H (36.4-46.3) fL RDW Coeff of Saman 17.5 H (11.5-14.5) % Plt Count 277 (130-400) K/uL MPV 9.8 (7.4-10.4) fL Immature Gran % (Auto) 0.2 % Neut % (Auto) 69.4 % Lymph % (Auto) 21.8 % [place] % (Auto) 5.8 % Eos % (Auto) 2.6 % Baso % (Auto) 0.2 % Neut # (Auto) 5.78 (1.4-6.5) K/uL Lymph # (Auto) 1.82 (1.2-3.4) K/uL [place] # (Auto) 0.48 (0.11-0.59) K/uL Eos # (Auto) 0.22 (0-0.5) K/uL Baso # (Auto) 0.02 (0-0.2) K/uL Immature Gran # (Auto) 0.02 (0.00-0.02) K/uL PT 25.1 H (9.0-12.0) Seconds INR 2.7 H (0.9-1.1) APTT 36.2 H (21.0-31.0) Seconds PTT Ratio 1.4 Sodium 139 (136-145) mmol/L Potassium 3.9 (3.5-5.1) mmol/L Chloride 108 H (98-107) mmol/L Carbon Dioxide 26 (21-32) mmol/L Anion Gap 5.0 (3-11) BUN 19 H (7-18) mg/dl Creatinine 0.87 (0.6-1.2) mg/dl Est Cr Clr Drug Dosing 43.8 ml/min Est GFR ( Amer) 78.8 ml/min Est GFR (Non-Af Amer) 68.0 ml/min BUN/Creatinine Ratio 21.5 H (10-20) Glucose 78 (70-99) mg/dl Lactate (0.4-2.0) mmol/L Calcium 8.0 L (8.5-10.1) mg/dl Magnesium (1.8-2.4) mg/dl Total Bilirubin 0.6 (0.2-1) mg/dl AST 25 (15-37) U/L ALT 29 (12-78) U/L Alkaline Phosphatase 104 (45-117) U/L Troponin I < 0.015 (0-0.045) ng/ml Total Protein 6.1 L (6.4-8.2) gm/dl Albumin 2.6 L (3.4-5.0) gm/dl Globulin 3.5 (2.5-4.0) gm/dl Albumin/Globulin Ratio 0.7 L (0.9-2) TSH (0.300-4.500) uIu/ml Free T4 (0.8-1.6) ng/dl Urine Color Urine Appearance (Clear) Urine pH (4.5-7.5) Ur Specific Britt (1.000-1.030) Urine Protein (Negative) Urine Glucose (UA) (Negative) Urine Ketones (Negative) Urine Blood (Negative) Urine Nitrite (Negative) Urine Bilirubin (Negative) Urine Urobilinogen (Negative) Ur Leukocyte Esterase (Negative) Urine WBC (Auto) (0-5) /hpf Urine RBC (Auto) (0-4) /hpf U Hyaline Cast (Auto) (0-5) /lpf U Epithel Cells (Auto) (0-5) /lpf Urine Bacteria (Auto) (Negative) Digoxin (0.8-2.0) ng/ml COVID-19 Eval Order SARS-CoV-2 (PCR) (Negative) 08/06/21 08/06/21 08/06/21 Range/Units 15:50 16:55 17:35 WBC (4.8-10.8) K/uL RBC (4.2-5.4) M/uL Hgb (12.0-16.0) g/dL Hct (37-47) % MCV (80-100) fL MCH (25-34) pg MCHC (32-36) g/dL RDW Std Deviation (36.4-46.3) fL RDW Coeff of Saman (11.5-14.5) % Plt Count (130-400) K/uL MPV (7.4-10.4) fL Immature Gran % (Auto) % Neut % (Auto) % Lymph % (Auto) % [place] % (Auto) % Eos % (Auto) % Baso % (Auto) % Neut # (Auto) (1.4-6.5) K/uL Lymph # (Auto) (1.2-3.4) K/uL [place] # (Auto) (0.11-0.59) K/uL Eos # (Auto) (0-0.5) K/uL Baso # (Auto) (0-0.2) K/uL Immature Gran # (Auto) (0.00-0.02) K/uL PT (9.0-12.0) Seconds INR (0.9-1.1) APTT (21.0-31.0) Seconds PTT Ratio Sodium (136-145) mmol/L Potassium (3.5-5.1) mmol/L Chloride (98-107) mmol/L Carbon Dioxide (21-32) mmol/L Anion Gap (3-11) BUN (7-18) mg/dl Creatinine (0.6-1.2) mg/dl Est Cr Clr Drug Dosing ml/min Est GFR ( Amer) ml/min Est GFR (Non-Af Amer) ml/min BUN/Creatinine Ratio (10-20) Glucose (70-99) mg/dl Lactate (0.4-2.0) mmol/L Calcium (8.5-10.1) mg/dl Magnesium 2.2 (1.8-2.4) mg/dl Total Bilirubin (0.2-1) mg/dl AST (15-37) U/L ALT (12-78) U/L Alkaline Phosphatase (45-117) U/L Troponin I (0-0.045) ng/ml Total Protein (6.4-8.2) gm/dl Albumin (3.4-5.0) gm/dl Globulin (2.5-4.0) gm/dl Albumin/Globulin Ratio (0.9-2) TSH 5.160 H (0.300-4.500) uIu/ml Free T4 0.83 (0.8-1.6) ng/dl Urine Color Yellow Urine Appearance Clear (Clear) Urine pH 5.0 (4.5-7.5) Ur Specific Britt 1.006 (1.000-1.030) Urine Protein Negative (Negative) Urine Glucose (UA) Negative (Negative) Urine Ketones Negative (Negative) Urine Blood Negative (Negative) Urine Nitrite Negative (Negative) Urine Bilirubin Negative (Negative) Urine Urobilinogen Negative (Negative) Ur Leukocyte Esterase Trace H (Negative) Urine WBC (Auto) 1-5 (0-5) /hpf Urine RBC (Auto) 0-4 (0-4) /hpf U Hyaline Cast (Auto) 1-5 (0-5) /lpf U Epithel Cells (Auto) 20-30 H (0-5) /lpf Urine Bacteria (Auto) Negative (Negative) Digoxin (0.8-2.0) ng/ml COVID-19 Eval Order Covid19 at [facility] SARS-CoV-2 (PCR) (Negative) 08/06/21 08/06/21 08/06/21 Range/Units 17:35 20:05 20:05 WBC (4.8-10.8) K/uL RBC (4.2-5.4) M/uL Hgb (12.0-16.0) g/dL Hct (37-47) % MCV (80-100) fL MCH (25-34) pg MCHC (32-36) g/dL RDW Std Deviation (36.4-46.3) fL RDW Coeff of Saman (11.5-14.5) % Plt Count (130-400) K/uL MPV (7.4-10.4) fL Immature Gran % (Auto) % Neut % (Auto) % Lymph % (Auto) % [place] % (Auto) % Eos % (Auto) % Baso % (Auto) % Neut # (Auto) (1.4-6.5) K/uL Lymph # (Auto) (1.2-3.4) K/uL [place] # (Auto) (0.11-0.59) K/uL Eos # (Auto) (0-0.5) K/uL Baso # (Auto) (0-0.2) K/uL Immature Gran # (Auto) (0.00-0.02) K/uL PT (9.0-12.0) Seconds INR (0.9-1.1) APTT (21.0-31.0) Seconds PTT Ratio Sodium (136-145) mmol/L Potassium (3.5-5.1) mmol/L Chloride (98-107) mmol/L Carbon Dioxide (21-32) mmol/L Anion Gap (3-11) BUN (7-18) mg/dl Creatinine (0.6-1.2) mg/dl Est Cr Clr Drug Dosing ml/min Est GFR ( Amer) ml/min Est GFR (Non-Af Amer) ml/min BUN/Creatinine Ratio (10-20) Glucose (70-99) mg/dl Lactate 2.9 H* (0.4-2.0) mmol/L Calcium (8.5-10.1) mg/dl Magnesium (1.8-2.4) mg/dl Total Bilirubin (0.2-1) mg/dl AST (15-37) U/L ALT (12-78) U/L Alkaline Phosphatase (45-117) U/L Troponin I (0-0.045) ng/ml Total Protein (6.4-8.2) gm/dl Albumin (3.4-5.0) gm/dl Globulin (2.5-4.0) gm/dl Albumin/Globulin Ratio (0.9-2) TSH (0.300-4.500) uIu/ml Free T4 (0.8-1.6) ng/dl Urine Color Urine Appearance (Clear) Urine pH (4.5-7.5) Ur Specific Britt (1.000-1.030) Urine Protein (Negative) Urine Glucose (UA) (Negative) Urine Ketones (Negative) Urine Blood (Negative) Urine Nitrite (Negative) Urine Bilirubin (Negative) Urine Urobilinogen (Negative) Ur Leukocyte Esterase (Negative) Urine WBC (Auto) (0-5) /hpf Urine RBC (Auto) (0-4) /hpf U Hyaline Cast (Auto) (0-5) /lpf U Epithel Cells (Auto) (0-5) /lpf Urine Bacteria (Auto) (Negative) Digoxin 0.8 (0.8-2.0) ng/ml COVID-19 Eval Order SARS-CoV-2 (PCR) NEGATIVE (Negative) Imaging Data Radiologist's Impression: Chest X-Ray 08/06/21 15:14 XR chest 1V portable HISTORY: Atypical Chest Pain COMPARISON: Chest 03/27/2021. FINDINGS: A left-sided pacemaker is again noted. No pleural effusions. No pneumothorax. There are low lung volumes. The heart is top normal in size. No focal lung consolidations to suggest pneumonia. No evidence for pulmonary edema. Small lobular density overlying the left hemidiaphragm is consistent with a fat- containing Bochdalek hernia. This remains unchanged. IMPRESSION: No significant change compared to the prior study. No acute process. ACT 112: Negative or not required by law. Electronically signed by: Harish Mckeon M.D. 08/06/2021 3:[address] 10/21/21 19:[address] DOSE: 537.48 mGy.cm HISTORY: Headache, coumadin tx TECHNIQUE: Multiaxial CT images of the head were performed without the use of intravenous contrast. Automated exposure control was utilized for this study. A dose lowering technique was utilized adhering to the principles of ALARA. Comparison: Head CT 02/28/2014. Findings: The paranasal sinuses and mastoid air cells are clear. The calvarium and skull base are intact. There is no mass, hematoma, midline shift, acute infarct. White matter hypodensity is nonspecific but suggestive of microvascular ischemic change. The ventricles and sulci demonstrate mild age-related involutional changes. Impression: No acute intracranial abnormality. ACT 112: Negative or not required by law. Electronically signed by: Harish Mckeon M.D. 08/06/2021 8:59 PM ECG Data Attestation: I personally reviewed and interpreted this ECG as follows: Indication: + chest pain Rate (beats per minute): 82 Rhythm: + other (Ventricular paced rhythm) ECG Findings: no PACs or no PVCs Comparison ECG Date: from (03/28/2021) Change: the following changes noted (She previously had atrial fibrillation.) MDM Narrative I did evaluate the patient as noted above. She is presenting with dyspnea on exertion and hypotension. She does have a history of CHF and has been on increased amounts of Lasix but every time she tries to walk around she gets very short of breath. She was sent here by her physician. IV access was establ ished. I did place an order for continuous cardiac monitoring. The monitor showed a paced rhythm at 79 bpm. I did order and personally review the patient's 12-lead EKG as described above. She has a paced rhythm. I did order and personally reviewed the images of the patient's chest x-ray as described above. She has vascular congestion consistent with CHF. I did order a urine analysis. She does not have a UTI. I did order and review the patient's blood work as noted in the electronic medical record. Her white count is not elevated. She is anemic with a hemoglobin 11.9. Chemistries are unremarkable other than a chloride of 108. Troponin is negative. Testing for COVID-19 was negative. I did discuss the results with the patient. I did recommend hospitalization for further care and evaluation. I did discuss case with the hospitalist and corrections caseworker. Impression & Plan Acute hypotension, CHF (congestive heart failure), SUTTON (dyspnea on exertion) Discharge Plan Visit Data Chief Complaint: Hypotension Stated Complaint: HEART TROUBLES, LOW BP ED Provider: Tejas Dupont Discharge Problem: Acute hypotension, CHF (congestive heart failure), SUTTON (dyspnea on exertion) Patient Disposition: Being Evaluated by Hospitalist Discharge Instructions Interventions: ED Discharge Assessment Last Done: 08/07/21 00:07
[2021-08-06 17:32] LABS: Appearance Urine Clear (Clear); Bacteria Urine Automated Negative (Negative); Bilirubin Urine Negative (Negative); Blood Urine Negative (Negative); Color Urine Yellow; Epithelial Cell Urine Auto 20-30 /lpf (0-5); Glucose Urine UA Negative (Negative); Ketones Urine Negative (Negative); Leukocyte Esterase Urine Trace (Negative); Nitrite Urine Negative (Negative); Protein Urine Negative (Negative); RBC Urine Automated 0-4 /hpf (0-4); Specific Gravity Urine 1.006 (1.000-1.030); Urobilinogen Urine Negative (Negative)
[2021-08-06 19:43] LABS: Magnesium 2.2 mg/dl (1.8-2.4); Thyroid Stimulating Hormone 5.16 uIu/ml (0.300-4.500)
[2021-08-06] MEDS ORDERED: ACETAMINOPHEN 325 MG TAB PO STA (19:48)
--- NOTE | 2021-08-06 19:50 | History & Physical Report ---
Date of Service August 06, 2021 Assessment & Plan (1) Hypotension: Plan: With orthostatic symptoms Patient baseline blood pressure 80s-100s noted from last confinement 4 months ago. 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 Consider midodrine Rx if with persistent orthostasis. DVT prophylaxis. Coumadin INR goal between 2 and 3 Full code Text document was generated using [employer] voice recognition software. It may contain grammatical or spelling errors. Kindly contact undersigned for clarification of any documentation item in question. History of Present Illness Chief Complaint: Low blood pressure Primary Care Provider: Russell Olvera DO History obtained from patient and records. Medical history significant for chronic diastolic heart failure (EF 60 to 65%, TTE 2020), SSS sp PPM on Coumadin, hypertension, severe TR/elevated RV systolic pressure on outpatient TTE March 2021, asthma/COPD as per records, chronic anemia (baseline hemoglobin of 11), history of gastric bypass Last confinement March 2021 for decompensated heart failure. About 10 days ago, patient noted to have weight gain and hypotension at home. Declined ED evaluation. Extra Lasix given at home. With some improvement in shortness of breath and leg swelling. Patient seen outpatient by [facility] Cardiology provider yesterday. SBP 80s at the office. Patient noted to be hypervolemic on exam. Extra Lasix recommended. Spironolactone discontinued given hypotension. Repeat TTE contemplated outpatient. Patient feels the same at home. Fatigue and short of breath. Dizziness on standing up with achy headache symptoms. No chest pain, no cough, no abdominal pain, no dysuria symptoms. Appetite not too good. Patient denies depression. Patient sent to the ER for evaluation. Medical History as above Surgical History : Hernia repair, gastric bypass, PPM, BTL, appendectomy, partial gastrectomy/enterectomy, cholecystectomy, D&C Family History : Leukemia, breast cancer, lung cancer, COPD, heart disease Personal/Social history : History of passive smoking, no EtOH intake, lives with , Allergies Allergy/AdvReac Type Severity Reaction Status Date / Time oxycodone AdvReac Intermediate GI SYMPTOMS Verified 08/06/21 17:18 Home Medications Medication Instructions Recorded Confirmed Type albuterol sulfate 90 mcg/actuation 2 puff INHALATION QID PRN 07/20/18 08/06/21 History aerosol inhaler (Ventolin HFA) cholecalciferol (vitamin D3) 50 2,000 unit PO QAM 07/20/18 08/06/21 History mcg (2,000 unit) capsule (Vitamin D3) fluticasone 250 mcg-salmeterol 50 1 inh INHALATION BID 07/20/18 08/06/21 History mcg/dose blistr powdr for inhalation (Advair Diskus) pediatric multivitamin no.7-folic 1 tab PO QAM 07/20/18 08/06/21 History acid 100 mcg chewable tablet (Flintstones Tab Chew) sertraline 50 mg tablet (Zoloft) 50 mg PO QAM 07/20/18 08/06/21 History warfarin 2.5 mg tablet See Rx Instructions .ROUTE .COMPLEX 07/20/18 08/06/21 History magnesium oxide 400 mg (241.3 mg 400 mg PO QAM #34 tab 04/23/20 08/06/21 Rx magnesium) tablet zafirlukast 20 mg tablet (Accolate) 20 mg PO BID 12/25/20 08/06/21 History iron,carbonyl 65 mg-vitamin C 125 1 tab PO BID 02/11/21 08/06/21 History mg tablet,delayed release (Vitron-C) furosemide 40 mg tablet 40 mg PO DAILY 03/27/21 08/06/21 History metoprolol succinate 50 mg 50 mg PO BID 03/27/21 08/06/21 History tablet,extended release 24 hr digoxin 125 mcg (0.125 mg) tablet 125 mcg PO DAILY #30 tab 04/01/21 08/06/21 Rx (Digitek) spironolactone 25 mg tablet 12.5 mg PO DAILY #15 tab 04/01/21 08/06/21 Rx potassium chloride 10 mEq 20 meq PO DAILY 08/06/21 08/06/21 History tablet,extended release(part/cryst) Past Med/Surg History Medical History A-fib S/P DANAE guided DCCV 10/2018. Reverted back to afib 03/2020. External DCCV 04/23/20. 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 Surgical History H/O colonoscopy H/O gastric bypass H/O hernia repair H/O ventral hernia repair History of cholecystectomy Pacemaker LAST CHECK AUG 2020 S/P appendectomy S/P small bowel resection Family History Other Cancer Hypertension Lung disease Social History Smoking Status: Never smoker Second Hand Exposure: Yes; Do You Dip or Chew Tobacco: No; Tobacco Cessation Education Requested by Patient: No Hx Alcohol Use: No Hx Substance Use: No Preferred Language: [place] Communication Ability: Effective Bilingual Teacher Assistant Required: No Beliefs That Will Affect Care: None Current Living Situation: Spouse current occupational status: employed Other Information That Helps Us Care for You: No Feels Safe at Home: Yes Safety Concerns: Feels Safe At This Time Assistive Devices: Cane and Glasses Review of Systems Review of Systems: As per HPI, all 10 systems reviewed, all other ROS negative Physical Exam Physical Exam: GENERAL: Slightly uncomfortable, slightly hard of hearing, no respiratory distress SKIN: Pallor, warm HEENT: Bespectacled, pale palpebral conjunctivae, no ptosis, dry buccal mucosa NECK : Supple, no tenderness CHEST : Decreased breath sounds, no tenderness HEART : RRR, no obvious murmurs ABDOMEN: Some distention, nontender EXTREMITIES : Minimal LE swelling, no LE tenderness, no other conspicuous deformities noted NEUROLOGIC : Coherent, no facial asymmetry, mild hearing impairment, gait and stance not assessed Results & Data Results & Data ([facility]) Vital Signs (Past 12 Hours) Vital Signs Temp Pulse Pulse Resp BP BP Pulse Ox 08/06/21 18:30 115/80 95 08/06/21 18:00 99/71 L 99 08/06/21 17:30 70 13 107/70 98 08/06/21 17:00 74 13 100/69 08/06/21 16:30 70 18 105/67 100 08/06/21 16:23 70 100 08/06/21 16:00 77 10 L 101/73 08/06/21 15:46 73 18 106/69 08/06/21 15:11 36.1 C L 74 18 106/71 99 Laboratory Results Laboratory Results WBC 8.34 K/uL (4.8-10.8) 08/06/21 15:50 RBC 3.99 M/uL (4.2-5.4) L 08/06/21 15:50 Hgb 11.9 g/dL (12.0-16.0) L 08/06/21 15:50 Hct 35.8 % (37-47) L 08/06/21 15:50 MCV 89.7 fL (80-100) 08/06/21 15:50 MCH 29.8 pg (25-34) 08/06/21 15:50 MCHC 33.2 g/dL (32-36) 08/06/21 15:50 RDW Std Deviation 57.7 fL (36.4-46.3) H 08/06/21 15:50 RDW Coeff of Saman 17.5 % (11.5-14.5) H 08/06/21 15:50 Plt Count 277 K/uL (130-400) 08/06/21 15:50 MPV 9.8 fL (7.4-10.4) 08/06/21 15:50 Immature Gran % (Auto) 0.2 % 08/06/21 15:50 Neut % (Auto) 69.4 % 08/06/21 15:50 Lymph % (Auto) 21.8 % 08/06/21 15:50 [place] % (Auto) 5.8 % 08/06/21 15:50 Eos % (Auto) 2.6 % 08/06/21 15:50 Baso % (Auto) 0.2 % 08/06/21 15:50 Neut # (Auto) 5.78 K/uL (1.4-6.5) 08/06/21 15:50 Lymph # (Auto) 1.82 K/uL (1.2-3.4) 08/06/21 15:50 [place] # (Auto) 0.48 K/uL (0.11-0.59) 08/06/21 15:50 Eos # (Auto) 0.22 K/uL (0-0.5) 08/06/21 15:50 Baso # (Auto) 0.02 K/uL (0-0.2) 08/06/21 15:50 Immature Gran # (Auto) 0.02 K/uL (0.00-0.02) 08/06/21 15:50 PT 25.1 Seconds (9.0-12.0) H 08/06/21 15:50 INR 2.7 (0.9-1.1) H 08/06/21 15:50 APTT 36.2 Seconds (21.0-31.0) H 08/06/21 15:50 PTT Ratio 1.4 08/06/21 15:50 Sodium 139 mmol/L (136-145) 08/06/21 15:50 Potassium 3.9 mmol/L (3.5-5.1) 08/06/21 15:50 Chloride 108 mmol/L (98-107) H 08/06/21 15:50 Carbon Dioxide 26 mmol/L (21-32) 08/06/21 15:50 Anion Gap 5.0 (3-11) 08/06/21 15:50 BUN 19 mg/dl (7-18) H 08/06/21 15:50 Creatinine 0.87 mg/dl (0.6-1.2) 08/06/21 15:50 Est Cr Clr Drug Dosing 43.8 ml/min 08/06/21 15:50 Est GFR ( Amer) 78.8 ml/min 08/06/21 15:50 Est GFR (Non-Af Amer) 68.0 ml/min 08/06/21 15:50 BUN/Creatinine Ratio 21.5 (10-20) H 08/06/21 15:50 Glucose 78 mg/dl (70-99) 08/06/21 15:50 Calcium 8.0 mg/dl (8.5-10.1) L 08/06/21 15:50 Magnesium 2.2 mg/dl (1.8-2.4) 08/06/21 15:50 Total Bilirubin 0.6 mg/dl (0.2-1) 08/06/21 15:50 AST 25 U/L (15-37) 08/06/21 15:50 ALT 29 U/L (12-78) 08/06/21 15:50 Alkaline Phosphatase 104 U/L (45-117) 08/06/21 15:50 Troponin I < 0.015 ng/ml (0-0.045) 08/06/21 15:50 Total Protein 6.1 gm/dl (6.4-8.2) L 08/06/21 15:50 Albumin 2.6 gm/dl (3.4-5.0) L 08/06/21 15:50 Globulin 3.5 gm/dl (2.5-4.0) 08/06/21 15:50 Albumin/Globulin Ratio 0.7 (0.9-2) L 08/06/21 15:50 TSH 5.160 uIu/ml (0.300-4.500) H 08/06/21 15:50 Urine Color Yellow 08/06/21 16:55 Urine Appearance Clear (Clear) 08/06/21 16:55 Urine pH 5.0 (4.5-7.5) 08/06/21 16:55 Ur Specific Leon 1.006 (1.000-1.030) 08/06/21 16:55 Urine Protein Negative (Negative) 08/06/21 16:55 Urine Glucose (UA) Negative (Negative) 08/06/21 16:55 Urine Ketones Negative (Negative) 08/06/21 16:55 Urine Blood Negative (Negative) 08/06/21 16:55 Urine Nitrite Negative (Negative) 08/06/21 16:55 Urine Bilirubin Negative (Negative) 08/06/21 16:55 Urine Urobilinogen Negative (Negative) 08/06/21 16:55 Ur Leukocyte Esterase Trace (Negative) H 08/06/21 16:55 Urine WBC (Auto) 1-5 /hpf (0-5) 08/06/21 16:55 Urine RBC (Auto) 0-4 /hpf (0-4) 08/06/21 16:55 U Hyaline Cast (Auto) 1-5 /lpf (0-5) 08/06/21 16:55 U Epithel Cells (Auto) 20-30 /lpf (0-5) H 08/06/21 16:55 Urine Bacteria (Auto) Negative (Negative) 08/06/21 16:55 COVID-19 Eval Order Covid19 at [facility] 08/06/21 17:35 SARS-CoV-2 (PCR) NEGATIVE (Negative) 08/06/21 17:35 Impressions Chest X-Ray 08/06/21 15:14 XR chest 1V portable HISTORY: Atypical Chest Pain COMPARISON: Chest 03/27/2021. FINDINGS: A left-sided pacemaker is again noted. No pleural effusions. No pneumothorax. There are low lung volumes. The heart is top normal in size. No focal lung consolidations to suggest pneumonia. No evidence for pulmonary edema. Small lobular density overlying the left hemidiaphragm is consistent with a fat-containing Bochdalek hernia. This remains unchanged. IMPRESSION: No significant change compared to the prior study. No acute process. ACT 112: Negative or not required by law. Electronically signed by: Harish Mckeon M.D. 08/06/2021 3:[address] head: No acute intracranial abnormality. EKG as per my interpretation: Rate 80, paced rhythm
[2021-08-06 19:56] LABS: T4 Free Thyroxine 0.83 ng/dl (0.8-1.6)
--- NOTE | 2021-08-06 21:01 | CT Scan Report ---
HEAD CT NONCONTRAST CT DOSE: 537.48 mGy.cm HISTORY: Headache, coumadin tx TECHNIQUE: Multiaxial CT images of the head were performed without the use of intravenous contrast. A utomated exposure control was utilized for this study. A dose lowering technique was utilized adheri ng to the principles of ALARA. Comparison: Head CT 02/28/2014. Findings: The paranasal sinuses and mastoid air cells are clear. The calvarium and skull base are int act. There is no mass, hematoma, midline shift, acute infarct. White matter hypodensity is nonspecifi c but suggestive of microvascular ischemic change. The ventricles and sulci demonstrate mild age-rela dar involutional changes. Impression: No acute intracranial abnormality. ACT 112: Negative or not required by law. Electronically signed by: Harish Mckeon M.D. 08/06/2021 8:59 PM
[2021-08-06] MEDS: ALBUMIN 25% 12.5 GM/50 ML VIAL IV SCH ×2 (21:08→22:04)
[2021-08-07] MEDS ORDERED: ACETAMINOPHEN 325 MG TAB PO PRN (00:32)
[2021-08-07] MEDS ORDERED: PROMETHAZINE HCL 6.25 MG in SODIUM CHLORIDE 0.9% 50 ML IV PRN (00:32)
[2021-08-07] MEDS ORDERED: traMADol HCL 50 MG TABLET PO PRN (00:32)
[2021-08-07 05:03] LABS: Basophils # (auto) 0.02 K/uL (0-0.2); Basophils % (auto) 0.4 %; Eosinophils # (auto) 0.25 K/uL (0-0.5); Eosinophils % (auto) 4.4 %; Hematocrit (blood only) 28.3 % (37-47); Hemoglobin 9.4 g/dL (12.0-16.0); Immature Granulocytes # (auto) 0.01 K/uL (0.00-0.02); Immature Granulocytes % (auto) 0.2 %; Lymphocytes # (auto) 1.83 K/uL (1.2-3.4); Lymphocytes % (auto) 32.5 %; Mean Corpuscular Hemoglobin 29.6 pg (25-34); Mean Corpuscular Hgb Conc 33.2 g/dL (32-36); Mean Platelet Volume 9.3 fL (7.4-10.4); Monocytes # (auto) 0.43 K/uL (0.11-0.59); Monocytes % (auto) 7.6 %; Neutrophils # (auto) 3.09 K/uL (1.4-6.5); Neutrophils % (auto) 54.9 %; Platelet Count 216 K/uL (130-400); RDW Coefficient of Variation 17.3 % (11.5-14.5); RDW Standard Deviation 56.9 fL (36.4-46.3); Red Blood Count 3.18 M/uL (4.2-5.4); White Blood Count 5.63 K/uL (4.8-10.8)
[2021-08-07 05:13] LABS: INR 3.4 (0.9-1.1); Prothrombin Time 31.4 Seconds (9.0-12.0)
[2021-08-07 05:25] LABS: BUN Creatinine Ratio 26.7 (10-20); Calcium 7.3 mg/dl (8.5-10.1); Creatinine Clr Calc Pharmacy 56.9 ml/min; Est GFR (African American) 103.9 ml/min; Est GFR (Non-African American) 89.7 ml/min; Magnesium 1.9 mg/dl (1.8-2.4); Potassium 3.1 mmol/L (3.5-5.1)
[2021-08-07] MEDS: MULTIVITAMIN CHEWABLE TAB PO SCH (08:13)
[2021-08-07] MEDS: FLUTICASONE/VILANTEROL 100/25MCG 14 PUFFS/INHALER INH SCH (08:13)
[2021-08-07] MEDS: SERTRALINE HCL 50 MG TABLET PO SCH (08:13)
[2021-08-07] MEDS: MAGNESIUM OXIDE 400 MG TAB PO SCH (08:13)
[2021-08-07] MEDS: METOPROLOL SUCC 25MG EXT REL TAB PO SCH ×3 (08:20→21:46)
--- NOTE | 2021-08-07 08:32 | Cardiology Consultation ---
Date of Consultation August 07, 2021 Assessment & Plan (1) Hypotension: (2) Chronic heart failure with preserved ejection fraction (HFpEF): (3) Severe tricuspid regurgitation: (4) Hypoalbuminemia: (5) A-fib: Patient admitted for weakness secondary to hypotension and SOB. Her chest xray is without acute process. Diuretics were held on admission. She appears euvolemic at this time. Hold diuretics today and likely resume oral furosemide 40 mg daily with potassium tomorrow. Will not resume spironolactone for now. HR's controlled Agree with slight reduction in metoprolol to 25 mg BID. Continue digoxin. I believe her ongoing LE edema is multifactorial due to hypoalbuminemia, low protein, anemia and venous insufficiency as well as CHF. She would benefit from daily compression stockings to help with edema and hypotension. She was to have outpatient echo today to reassess valvular heart disease as well as LV function given chronic RV pacing. Will order now. She is seeing EP next month to discuss potential benefit from [employer] device and updated LV function is needed. At this time, patient is asymptomatic. Monitor BP. Recommend PT/OT. Case discussed with Dr. Menchaca. Supervising Physician Co-Signing Physician Notes Patient seen and examined with Ai Shin PA-C. Agree with findings and assessment as above. Significant hypotension. Hold diuretics as above. will also decrease metoprolol and add dig for rate control. History of Present Illness Reason for Consultation: Hypotension; CHF Requesting Physician: Dr. Gao Attending Physician: Dr. Menchaca History of Present Illness Patient is a 71 year old female, well known to [facility], following with Dr. Haskins, Dr. Ivey and AP's intermittently for complex history includin. Permanent atrial fibrillation, on Coumadin, metoprolol succinate and digoxin, [id number] score of 2 (female and age) a. History of DCCV 04/23/2020 2. Paroxysmal atrial tachycardia 3. 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 Severe tricuspid regurgitation per echo 03/2021, concerned that the RV pacing lead may be playing a role, 100% RV pacing 5. Chronic diastolic CHF, NYHA class 3 6. Essential tremor 7. Hypotension 8. Anemia 9. Hypoalbuminemia Last week patient contacted [facility] at Home with concerns regarding worsening fluid retention, weight gain of 5 lb and worsening SOB. she reported low oxygen readings at home. She was instructed to go to ER, but patient declined. She was then given additional lasix for several days with improvement in her symptoms. She presented to cardiology clinic yesterday with concerns regarding worsening SOB, orthopnea, slight weight gain, fatigue and hypotension. It was felt she was hypervolemic again, but due to hypotension, spironolactone was discontinued and furosemide was to be increased for several days. In the meantime, patient presented to [place] ER last evening with worsening dizzi ness, weakness, nausea. No chest pain. Found to be persistently hypotensive. Low albumin noted, low protein noted. On admission, diuretics were held. Chest xray was without acute process. Metoprolol was reduced from 50 mg BID to 25 mg BID. She received IV albumin. At time of consult, patient resting in bed comfortably. No orthopnea as she is laying fairly supine, sleeping on arrival. Not currently on supplemental O2. BP improving. She reports ongoing weakness and nausea, but voices no other concerns. No edema. BP improved this morning. No dizziness reported but admits she has not been up out of bed. Allergies Allergy/AdvReac Type Severity Reaction Status Date / Time oxycodone AdvReac Intermediate GI SYMPTOMS Verified 08/06/21 17:18 Home Medications Medication Instructions Recorded Confirmed Type albuterol sulfate 90 mcg/actuation 2 puff INHALATION QID PRN 07/20/18 08/06/21 History aerosol inhaler (Ventolin HFA) cholecalciferol (vitamin D3) 50 2,000 unit PO QAM 07/20/18 08/06/21 History mcg (2,000 unit) capsule (Vitamin D3) fluticasone 250 mcg-salmeterol 50 1 inh INHALATION BID 07/20/18 08/06/21 History mcg/dose blistr powdr for inhalation (Advair Diskus) pediatric multivitamin no.7-folic 1 tab PO QAM 07/20/18 08/06/21 History acid 100 mcg chewable tablet (Flintstones Tab Chew) sertraline 50 mg tablet (Zoloft) 50 mg PO QAM 07/20/18 08/06/21 History warfarin 2.5 mg tablet See Rx Instructions .ROUTE .COMPLEX 07/20/18 08/06/21 History magnesium oxide 400 mg (241.3 mg 400 mg PO QAM #34 tab 04/23/20 08/06/21 Rx magnesium) tablet zafirlukast 20 mg tablet (Accolate) 20 mg PO BID 12/25/20 08/06/21 History iron,carbonyl 65 mg-vitamin C 125 1 tab PO BID 02/11/21 08/06/21 History mg tablet,delayed release (Vitron-C) furosemide 40 mg tablet 40 mg PO DAILY 03/27/21 08/06/21 History metoprolol succinate 50 mg 50 mg PO BID 03/27/21 08/06/21 History tablet,extended release 24 hr digoxin 125 mcg (0.125 mg) tablet 125 mcg PO DAILY #30 tab 04/01/21 08/06/21 Rx (Digitek) spironolactone 25 mg tablet 12.5 mg PO DAILY #15 tab 04/01/21 08/06/21 Rx potassium chloride 10 mEq 20 meq PO DAILY 08/06/21 08/06/21 History tablet,extended release(part/cryst) Patient History Medical History A-fib S/P DANAE guided DCCV 10/2018. Reverted back to afib 03/2020. External DCCV 04/23/20. 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 Surgical History H/O colonoscopy H/O gastric bypass H/O hernia repair H/O ventral hernia repair History of cholecystectomy Pacemaker LAST CHECK AUG 2020 S/P appendectomy S/P small bowel resection Family History Other Cancer Hypertension Lung disease Social History Smoking Status: Never smoker Second Hand Exposure: Yes; Do You Dip or Chew Tobacco: No; Tobacco Cessation Education Requested by Patient: No Hx Alcohol Use: No Hx Substance Use: No Preferred Language: Maltese Communication Ability: Effective Box Maker Paperboard Required: No Beliefs That Will Affect Care: None Current Living Situation: Spouse current occupational status: employed Other Information That Helps Us Care for You: No Feels Safe at Home: Yes Safety Concerns: Feels Safe At This Time Assistive Devices: Cane Review of Systems Review of Systems: All systems reviewed & are unremarkable except as noted in HPI & below Physical Exam Constitutional: WD/WN, vitals as above Neck: trachea midline, no thyromegaly Cardiovascular: Rate/Rhythm: regular rate and regular rhythm Heart Sounds: normal S1 and normal S2; no murmur Vessels: no JVD Extremities: no edema Gastrointestinal (Abdomen): normal bowel sounds, soft, nontender, no hepatosplenomegaly Musculoskeletal: no cyanosis or clubbing, extremities motor strength 5/5 Skin: no rashes, warm and dry Neurologic: PERRL, EOMI, accommodation nl, no face palsy, no dysarthria Results & Data ([facility]) Vital Signs (Past 12 Hours) Vital Signs Temp Pulse Pulse Resp BP BP BP 08/07/21 07:29 36.5 C 78 20 103/68 86/68 L 08/07/21 05:00 36.8 C 71 20 87/64 L 101/65 08/07/21 00:15 36.5 C 74 21 103/70 08/06/21 23:30 70 12 89/53 L 08/06/21 23:00 70 13 08/06/21 22:30 70 13 08/06/21 22:00 71 12 08/06/21 21:30 71 14 124/50 L 08/06/21 21:00 70 19 119/63 08/06/21 20:35 97 H 48 H 111/50 L Pulse Ox 08/07/21 07:29 08/07/21 05:00 99 08/07/21 00:15 100 08/06/21 23:30 96 08/06/21 23:00 96 08/06/21 22:30 96 08/06/21 22:00 99 08/06/21 21:30 100 08/06/21 21:00 84 L 08/06/21 20:35 Laboratory Results 08/07/21 08/07/21 08/07/21 Range/Units 04:53 04:53 04:53 WBC (4.8-10.8) K/uL RBC (4.2-5.4) M/uL Hgb (12.0-16.0) g/dL Hct (37-47) % MCV (80-100) fL MCH (25-34) pg MCHC (32-36) g/dL RDW Std Deviation (36.4-46.3) fL RDW Coeff of Saman (11.5-14.5) % Plt Count (130-400) K/uL MPV (7.4-10.4) fL Immature Gran % (Auto) % Neut % (Auto) % Lymph % (Auto) % [place] % (Auto) % Eos % (Auto) % Baso % (Auto) % Neut # (Auto) (1.4-6.5) K/uL Lymph # (Auto) (1.2-3.4) K/uL [place] # (Auto) (0.11-0.59) K/uL Eos # (Auto) (0-0.5) K/uL Baso # (Auto) (0-0.2) K/uL Immature Gran # (Auto) (0.00-0.02) K/uL PT 31.4 H (9.0-12.0) Seconds INR 3.4 H (0.9-1.1) APTT (21.0-31.0) Seconds PTT Ratio Sodium 142 (136-145) mmol/L Potassium 3.1 L D (3.5-5.1) mmol/L Chloride 110 H (98-107) mmol/L Carbon Dioxide 30 (21-32) mmol/L Anion Gap 2.0 L (3-11) BUN 18 (7-18) mg/dl Creatinine 0.67 (0.6-1.2) mg/dl Est Cr Clr Drug Dosing 56.9 ml/min Est GFR ( Amer) 103.9 ml/min Est GFR (Non-Af Amer) 89.7 ml/min BUN/Creatinine Ratio 26.7 H (10-20) Glucose 69 L (70-99) mg/dl Lactate (0.4-2.0) mmol/L Calcium 7.3 L (8.5-10.1) mg/dl Magnesium 1.9 (1.8-2.4) mg/dl Total Bilirubin (0.2-1) mg/dl AST (15-37) U/L ALT (12-78) U/L Alkaline Phosphatase (45-117) U/L Troponin I (0-0.045) ng/ml Total Protein (6.4-8.2) gm/dl Albumin (3.4-5.0) gm/dl Globulin (2.5-4.0) gm/dl Albumin/Globulin Ratio (0.9-2) TSH (0.300-4.500) uIu/ml Free T4 (0.8-1.6) ng/dl Urine Color Urine Appearance (Clear) Urine pH (4.5-7.5) Ur Specific [place] (1.000-1.030) Urine Protein (Negative) Urine Glucose (UA) (Negative) Urine Ketones (Negative) Urine Blood (Negative) Urine Nitrite (Negative) Urine Bilirubin (Negative) Urine Urobilinogen (Negative) Ur Leukocyte Esterase (Negative) Urine WBC (Auto) (0-5) /hpf Urine RBC (Auto) (0-4) /hpf U Hyaline Cast (Auto) (0-5) /lpf U Epithel Cells (Auto) (0-5) /lpf Urine Bacteria (Auto) (Negative) Digoxin (0.8-2.0) ng/ml COVID-19 Eval Order SARS-CoV-2 (PCR) (Negative) Hepatitis C Ab Screen Neg (Neg) 08/07/21 08/07/21 08/06/21 Range/Units 04:53 00:46 20:05 WBC 5.63 (4.8-10.8) K/uL RBC 3.18 L (4.2-5.4) M/uL Hgb 9.4 L (12.0-16.0) g/dL Hct 28.3 L (37-47) % MCV 89.0 (80-100) fL MCH 29.6 (25-34) pg MCHC 33.2 (32-36) g/dL RDW Std Deviation 56.9 H (36.4-46.3) fL RDW Coeff of Saman 17.3 H (11.5-14.5) % Plt Count 216 (130-400) K/uL MPV 9.3 (7.4-10.4) fL Immature Gran % (Auto) 0.2 % Neut % (Auto) 54.9 % Lymph % (Auto) 32.5 % [place] % (Auto) 7.6 % Eos % (Auto) 4.4 % Baso % (Auto) 0.4 % Neut # (Auto) 3.09 (1.4-6.5) K/uL Lymph # (Auto) 1.83 (1.2-3.4) K/uL [place] # (Auto) 0.43 (0.11-0.59) K/uL Eos # (Auto) 0.25 (0-0.5) K/uL Baso # (Auto) 0.02 (0-0.2) K/uL Immature Gran # (Auto) 0.01 (0.00-0.02) K/uL PT (9.0-12.0) Seconds INR (0.9-1.1) APTT (21.0-31.0) Seconds PTT Ratio Sodium (136-145) mmol/L Potassium (3.5-5.1) mmol/L Chloride (98-107) mmol/L Carbon Dioxide (21-32) mmol/L Anion Gap (3-11) BUN (7-18) mg/dl Creatinine (0.6-1.2) mg/dl Est Cr Clr Drug Dosing ml/min Est GFR ( Amer) ml/min Est GFR (Non-Af Amer) ml/min BUN/Creatinine Ratio (10-20) Glucose (70-99) mg/dl Lactate 0.6 2.9 H* (0.4-2.0) mmol/L Calcium (8.5-10.1) mg/dl Magnesium (1.8-2.4) mg/dl Total Bilirubin (0.2-1) mg/dl AST (15-37) U/L ALT (12-78) U/L Alkaline Phosphatase (45-117) U/L Troponin I (0-0.045) ng/ml Total Protein (6.4-8.2) gm/dl Albumin (3.4-5.0) gm/dl Globulin (2.5-4.0) gm/dl Albumin/Globulin Ratio (0.9-2) TSH (0.300-4.500) uIu/ml Free T4 (0.8-1.6) ng/dl Urine Color Urine Appearance (Clear) Urine pH (4.5-7.5) Ur Specific [place] (1.000-1.030) Urine Protein (Negative) Urine Glucose (UA) (Negative) Urine Ketones (Negative) Urine Blood (Negative) Urine Nitrite (Negative) Urine Bilirubin (Negative) Urine Urobilinogen (Negative) Ur Leukocyte Esterase (Negative) Urine WBC (Auto) (0-5) /hpf Urine RBC (Auto) (0-4) /hpf U Hyaline Cast (Auto) (0-5) /lpf U Epithel Cells (Auto) (0-5) /lpf Urine Bacteria (Auto) (Negative) Digoxin (0.8-2.0) ng/ml COVID-19 Eval Order SARS-CoV-2 (PCR) (Negative) Hepatitis C Ab Screen (Neg) 08/06/21 08/06/21 08/06/21 Range/Units 20:05 17:35 17:35 WBC (4.8-10.8) K/uL RBC (4.2-5.4) M/uL Hgb (12.0-16.0) g/dL Hct (37-47) % MCV (80-100) fL MCH (25-34) pg MCHC (32-36) g/dL RDW Std Deviation (36.4-46.3) fL RDW Coeff of Saman (11.5-14.5) % Plt Count (130-400) K/uL MPV (7.4-10.4) fL Immature Gran % (Auto) % Neut % (Auto) % Lymph % (Auto) % [place] % (Auto) % Eos % (Auto) % Baso % (Auto) % Neut # (Auto) (1.4-6.5) K/uL Lymph # (Auto) (1.2-3.4) K/uL [place] # (Auto) (0.11-0.59) K/uL Eos # (Auto) (0-0.5) K/uL Baso # (Auto) (0-0.2) K/uL Immature Gran # (Auto) (0.00-0.02) K/uL PT (9.0-12.0) Seconds INR (0.9-1.1) APTT (21.0-31.0) Seconds PTT Ratio Sodium (136-145) mmol/L Potassium (3.5-5.1) mmol/L Chloride (98-107) mmol/L Carbon Dioxide (21-32) mmol/L Anion Gap (3-11) BUN (7-18) mg/dl Creatinine (0.6-1.2) mg/dl Est Cr Clr Drug Dosing ml/min Est GFR ( Amer) ml/min Est GFR (Non-Af Amer) ml/min BUN/Creatinine Ratio (10-20) Glucose (70-99) mg/dl Lactate (0.4-2.0) mmol/L Calcium (8.5-10.1) mg/dl Magnesium (1.8-2.4) mg/dl Total Bilirubin (0.2-1) mg/dl AST (15-37) U/L ALT (12-78) U/L Alkaline Phosphatase (45-117) U/L Troponin I (0-0.045) ng/ml Total Protein (6.4-8.2) gm/dl Albumin (3.4-5.0) gm/dl Globulin (2.5-4.0) gm/dl Albumin/Globulin Ratio (0.9-2) TSH (0.300-4.500) uIu/ml Free T4 (0.8-1.6) ng/dl Urine Color Urine Appearance (Clear) Urine pH (4.5-7.5) Ur Specific [place] (1.000-1.030) Urine Protein (Negative) Urine Glucose (UA) (Negative) Urine Ketones (Negative) Urine Blood (Negative) Urine Nitrite (Negative) Urine Bilirubin (Negative) Urine Urobilinogen (Negative) Ur Leukocyte Esterase (Negative) Urine WBC (Auto) (0-5) /hpf Urine RBC (Auto) (0-4) /hpf U Hyaline Cast (Auto) (0-5) /lpf U Epithel Cells (Auto) (0-5) /lpf Urine Bacteria (Auto) (Negative) Digoxin 0.8 (0.8-2.0) ng/ml COVID-19 Eval Order Covid19 at [facility] SARS-CoV-2 (PCR) NEGATIVE (Negative) Hepatitis C Ab Screen (Neg) 08/06/21 08/06/21 08/06/21 Range/Units 16:55 15:50 15:50 WBC (4.8-10.8) K/uL RBC (4.2-5.4) M/uL Hgb (12.0-16.0) g/dL Hct (37-47) % MCV (80-100) fL MCH (25-34) pg MCHC (32-36) g/dL RDW Std Deviation (36.4-46.3) fL RDW Coeff of Saman (11.5-14.5) % Plt Count (130-400) K/uL MPV (7.4-10.4) fL Immature Gran % (Auto) % Neut % (Auto) % Lymph % (Auto) % [place] % (Auto) % Eos % (Auto) % Baso % (Auto) % Neut # (Auto) (1.4-6.5) K/uL Lymph # (Auto) (1.2-3.4) K/uL [place] # (Auto) (0.11-0.59) K/uL Eos # (Auto) (0-0.5) K/uL Baso # (Auto) (0-0.2) K/uL Immature Gran # (Auto) (0.00-0.02) K/uL PT (9.0-12.0) Seconds INR (0.9-1.1) APTT (21.0-31.0) Seconds PTT Ratio Sodium 139 (136-145) mmol/L Potassium 3.9 (3.5-5.1) mmol/L Chloride 108 H (98-107) mmol/L Carbon Dioxide 26 (21-32) mmol/L Anion Gap 5.0 (3-11) BUN 19 H (7-18) mg/dl Creatinine 0.87 (0.6-1.2) mg/dl Est Cr Clr Drug Dosing 43.8 ml/min Est GFR ( Amer) 78.8 ml/min Est GFR (Non-Af Amer) 68.0 ml/min BUN/Creatinine Ratio 21.5 H (10-20) Glucose 78 (70-99) mg/dl Lactate (0.4-2.0) mmol/L Calcium 8.0 L (8.5-10.1) mg/dl Magnesium 2.2 (1.8-2.4) mg/dl Total Bilirubin 0.6 (0.2-1) mg/dl AST 25 (15-37) U/L ALT 29 (12-78) U/L Alkaline Phosphatase 104 (45-117) U/L Troponin I < 0.015 (0-0.045) ng/ml Total Protein 6.1 L (6.4-8.2) gm/dl Albumin 2.6 L (3.4-5.0) gm/dl Globulin 3.5 (2.5-4.0) gm/dl Albumin/Globulin Ratio 0.7 L (0.9-2) TSH 5.160 H (0.300-4.500) uIu/ml Free T4 0.83 (0.8-1.6) ng/dl Urine Color Yellow Urine Appearance Clear (Clear) Urine pH 5.0 (4.5-7.5) Ur Specific [place] 1.006 (1.000-1.030) Urine Protein Negative (Negative) Urine Glucose (UA) Negative (Negative) Urine Ketones Negative (Negative) Urine Blood Negative (Negative) Urine Nitrite Negative (Negative) Urine Bilirubin Negative (Negative) Urine Urobilinogen Negative (Negative) Ur Leukocyte Esterase Trace H (Negative) Urine WBC (Auto) 1-5 (0-5) /hpf Urine RBC (Auto) 0-4 (0-4) /hpf U Hyaline Cast (Auto) 1-5 (0-5) /lpf U Epithel Cells (Auto) 20-30 H (0-5) /lpf Urine Bacteria (Auto) Negative (Negative) Digoxin (0.8-2.0) ng/ml COVID-19 Eval Order SARS-CoV-2 (PCR) (Negative) Hepatitis C Ab Screen (Neg) 08/06/21 08/06/21 Range/Units 15:50 15:50 WBC 8.34 (4.8-10.8) K/uL RBC 3.99 L (4.2-5.4) M/uL Hgb 11.9 L (12.0-16.0) g/dL Hct 35.8 L (37-47) % MCV 89.7 (80-100) fL MCH 29.8 (25-34) pg MCHC 33.2 (32-36) g/dL RDW Std Deviation 57.7 H (36.4-46.3) fL RDW Coeff of Saman 17.5 H (11.5-14.5) % Plt Count 277 (130-400) K/uL MPV 9.8 (7.4-10.4) fL Immature Gran % (Auto) 0.2 % Neut % (Auto) 69.4 % Lymph % (Auto) 21.8 % [place] % (Auto) 5.8 % Eos % (Auto) 2.6 % Baso % (Auto) 0.2 % Neut # (Auto) 5.78 (1.4-6.5) K/uL Lymph # (Auto) 1.82 (1.2-3.4) K/uL [place] # (Auto) 0.48 (0.11-0.59) K/uL Eos # (Auto) 0.22 (0-0.5) K/uL Baso # (Auto) 0.02 (0-0.2) K/uL Immature Gran # (Auto) 0.02 (0.00-0.02) K/uL PT 25.1 H (9.0-12.0) Seconds INR 2.7 H (0.9-1.1) APTT 36.2 H (21.0-31.0) Seconds PTT Ratio 1.4 Sodium (136-145) mmol/L Potassium (3.5-5.1) mmol/L Chloride (98-107) mmol/L Carbon Dioxide (21-32) mmol/L Anion Gap (3-11) BUN (7-18) mg/dl Creatinine (0.6-1.2) mg/dl Est Cr Clr Drug Dosing ml/min Est GFR ( Amer) ml/min Est GFR (Non-Af Amer) ml/min BUN/Creatinine Ratio (10-20) Glucose (70-99) mg/dl Lactate (0.4-2.0) mmol/L Calcium (8.5-10.1) mg/dl Magnesium (1.8-2.4) mg/dl Total Bilirubin (0.2-1) mg/dl AST (15-37) U/L ALT (12-78) U/L Alkaline Phosphatase (45-117) U/L Troponin I (0-0.045) ng/ml Total Protein (6.4-8.2) gm/dl Albumin (3.4-5.0) gm/dl Globulin (2.5-4.0) gm/dl Albumin/Globulin Ratio (0.9-2) TSH (0.300-4.500) uIu/ml Free T4 (0.8-1.6) ng/dl Urine Color Urine Appearance (Clear) Urine pH (4.5-7.5) Ur Specific [place] (1.000-1.030) Urine Protein (Negative) Urine Glucose (UA) (Negative) Urine Ketones (Negative) Urine Blood (Negative) Urine Nitrite (Negative) Urine Bilirubin (Negative) Urine Urobilinogen (Negative) Ur Leukocyte Esterase (Negative) Urine WBC (Auto) (0-5) /hpf Urine RBC (Auto) (0-4) /hpf U Hyaline Cast (Auto) (0-5) /lpf U Epithel Cells (Auto) (0-5) /lpf Urine Bacteria (Auto) (Negative) Digoxin (0.8-2.0) ng/ml COVID-19 Eval Order SARS-CoV-2 (PCR) (Negative) Hepatitis C Ab Screen (Neg) Diagnostic Findings EKG on admission - ventricular paced. Stable. chest xray on admission: No significant change compared to the prior study. No acute process. Head CT on admission: No acute intracranial abnormality. Medications Administered Current Inpatient Medications Acetaminophen (Acetaminophen 325 Mg Tab) 650 mg PO Q4H PRN PRN Reason: Pain or Fever Stop: 09/06/21 00:31 Digoxin (Digoxin 0.125 Mg Tab) 0.125 mg PO QAM [facility] Stop: 09/06/21 08:59 Last Admin: 08/07/21 09:23 Dose: 0.125 mg Documented by: Fluticasone/Vilanterol (Fluticasone/Vilanterol 100/25mcg 14 Puffs/Inhaler) 1 puffs INH DAILY [facility] Stop: 09/06/21 08:59 Last Admin: 08/07/21 08:13 Dose: 1 puffs Documented by: Promethazine HCl 6.25 mg/ (Sodium Chloride) 50.25 mls @ 201 mls/hr IV Q6H PRN PRN Reason: Nausea And Vomiting Stop: 09/06/21 00:31 Magnesium Oxide (Magnesium Oxide 400 Mg Tab) 400 mg PO QAM [facility] Stop: 09/06/21 08:59 Last Admin: 08/07/21 08:13 Dose: 400 mg Documented by: Metoprolol Succinate (Metoprolol Succ 25mg Ext Rel Tab) 25 mg PO BID [facility] Stop: 09/06/21 08:59 Last Admin: 08/07/21 09:24 Dose: 25 mg Documented by: Miscellaneous (Accolate~Order Awaiting Action) 1 ea N/A QS [facility] Stop: 09/06/21 00:44 Last Admin: 08/07/21 07:37 Dose: Not Given Documented by: Multivitamins/Folic Acid/Vitamin C (Multivitamin Chewable Tab) 1 tab PO QAM [facility] Stop: 09/06/21 08:59 Last Admin: 08/07/21 08:13 Dose: 1 tab Documented by: Sertraline HCl (Sertraline Hcl 50 Mg Tablet) 50 mg PO QAM [facility] Stop: 09/06/21 08:59 Last Admin: 08/07/21 08:13 Dose: 50 mg Documented by: Tramadol HCl (Tramadol Hcl 50 Mg Tablet) 25 mg PO Q4H PRN PRN Reason: Pain Stop: 09/06/21 00:31
[2021-08-07] MEDS ORDERED: POTASSIUM CHLORIDE CRTAB 20 MEQ TABCR PO ONE (08:48)
[2021-08-07] MEDS: DIGOXIN 0.125 MG TAB PO SCH (09:23)
--- NOTE | 2021-08-07 09:52 | Electrocardiogram Report ---
Test Reason : Blood Pressure : / mmHG Vent. Rate : 082 BPM Atrial Rate : 468 BPM P-R Int : 000 ms QRS Dur : 154 ms QT Int : 384 ms P-R-T Axes : 000 -62 089 degrees QTc Int : 448 ms Ventricular-paced rhythm Abnormal ECG When compared with ECG of 28-MAR-2021 05:16, No significant change was found Confirmed by Nagi Sneed ([id number]) on 08/07/2021 9:51:46 AM Referred By: Confirmed By:Nagi Sneed
--- NOTE | 2021-08-07 20:56 | Hospitalist Progress Note ---
Date of Service August 07, 2021 Assessment & Plan (1) Hypotension: Plan: 70 y/o F with PMH persistent atrial fibrillation, on warfarin, s/p DANAE guided DCCV in 10/2018 with recurrent atrial fibrillation s/p cardioversion 05/05/2020, 09/05/2020 with recurrent atrial fibrillation 12/2020, tachybrady syndrome s/p PPM, diastolic CHF, history of gastric bypass, COPD, depression who presented to ED shortness of breath, weakness, slight weight gain and hypotension. Blood pressure on admission was in the 80s systolic Received IV albumin on admission Diuretic was on hold Metoprolol was decreased to half Continue monitor BP (2) Chronic heart failure with preserved ejection fraction (HFpEF): Plan: He does not show any signs of fluid overload. CXR showed no evidence for pulmonary edema. Recent echo today showed no LV wall motion abnormality with ejection fraction 60 to 65%. Moderate tricuspid regurgitation. Moderate left atrial enlargement Lasix was placed on hold due to low BP Cardiology on board A-fib: S/P DANAE guided DCCV in 10/2018 with recurrent atrial fibrillation, s/p cardioversion 05/05/2020, 09/05/2020 with recurrent atrial fibrillation 12/2020. 02/04 sotalol discontinued. Recent hospitalization for Tikosyn. Tikosyn discontinued 02/2021. Dr Ivey's office note reported pt may need an upgrade to BiV ppm next month Metoprolol decreased to 25 mg twice daily due to low BP Continue digoxin home dose INR 3.4 today Continue Coumadin and monitor PT/INR Tachy-corin syndrome: s/p PPM Follows with Dr. Ivey . Her office note reported pt may need an upgrade to BiV ppm Stable COPD (chronic obstructive pulmonary disease): No acute exacerbation Continue Advair, as needed albuterol, Accolate Anemia: Hgb: 9.4 today No signs of bleeding Continue iron supplement DVT Prophylaxis On Coumadin with INR 3.4 Full code Disposition Continue monitor in PCU Admission and Anticipated Discharge Date Admission Date: August 06, 2021 Subjective Patient was seen and examined for follow-up of weakness, fatigue and SOB Lying in bed with no acute distress patient said that she feels weak and tired Denies any chest pain, palpitation, dizziness, and fever. Review of Systems Review of Systems: All systems reviewed & are unremarkable except as noted in Subjective Physical Exam Physical Exam: General- No acute distress Head- atraumatic Eyes- PERRL, EOMI, ENT- oropharynx clear Neck- supple, no JVD Lungs- clear to auscultation Heart- regular rhythm; +murmur Abdomen- normal bowel sounds, soft, nontender Extremities- no calf tenderness, +edema Neuro- alert, oriented x 3; PERRL, EOMI; no facial palsy; no dysarthria Skin- warm & dry Results & Data Results & Data ([facility]) Vital Signs (Past 12 Hours) Vital Signs Temp Pulse Pulse Resp BP BP Pulse Ox 08/07/21 19:24 36.6 C 70 16 90/60 L 97 08/07/21 18:40 71 08/07/21 18:38 36.5 C 77 22 108/75 100 08/07/21 17:39 36.8 C 71 17 93/53 L 87/54 L 08/07/21 11:47 83 19 107/73 93 08/07/21 09:23 70
[2021-08-08] MEDS: FLUTICASONE/VILANTEROL 100/25MCG 14 PUFFS/INHALER INH SCH (08:25)
[2021-08-08] MEDS: DIGOXIN 0.125 MG TAB PO SCH (08:25)
[2021-08-08] MEDS: MULTIVITAMIN CHEWABLE TAB PO SCH (08:26)
[2021-08-08] MEDS: MAGNESIUM OXIDE 400 MG TAB PO SCH (08:26)
[2021-08-08] MEDS: SERTRALINE HCL 50 MG TABLET PO SCH (08:27)
[2021-08-08 10:19] LABS: Hemoglobin 10.4 g/dL (12.0-16.0); Mean Corpuscular Hemoglobin 29.7 pg (25-34); Mean Corpuscular Hgb Conc 32.5 g/dL (32-36); Mean Corpuscular Volume 91.4 fL (80-100); Mean Platelet Volume 9.6 fL (7.4-10.4); Platelet Count 241 K/uL (130-400); RDW Coefficient of Variation 17.4 % (11.5-14.5); RDW Standard Deviation 58.5 fL (36.4-46.3); White Blood Count 6.22 K/uL (4.8-10.8)
[2021-08-08 10:31] LABS: INR 1.7 (0.9-1.1); Prothrombin Time 16.3 Seconds (9.0-12.0)
[2021-08-08 10:57] LABS: BUN Creatinine Ratio 29.6 (10-20); Calcium 7.9 mg/dl (8.5-10.1); Creatinine Clr Calc Pharmacy 47.1 ml/min; Est GFR (African American) 85.9 ml/min; Est GFR (Non-African American) 74.1 ml/min; Potassium 3.8 mmol/L (3.5-5.1)
[2021-08-08] MEDS: METOPROLOL SUCC 25MG EXT REL TAB PO SCH ×2 (11:30→20:22)
--- NOTE | 2021-08-08 11:57 | Cardiology Progress Note ---
Date of Service August 08, 2021 Assessment & Plan (1) Hypotension: (2) Chronic heart failure with preserved ejection fraction (HFpEF): (3) Severe tricuspid regurgitation: (4) Hypoalbuminemia: (5) A-fib: Plan: Patient admitted for weakness secondary to hypotension and SOB. Her chest xray is without acute process. Diuretics were held on admission. She appears euvolemic at this time. HR's controlled Agree with slight reduction in metoprolol to 25 mg BID. Continue digoxin. I believe her ongoing LE edema is multifactorial due to hypoalbuminemia, low protein, anemia and venous insufficiency as well as CHF. She would benefit from daily compression stockings to help with edema and hypotension. She was to have outpatient echo today to reassess valvular heart disease as well as LV function given chronic RV pacing. Will order now. She is seeing EP next month to discuss potential benefit from DELIVERY DRIVER/SUPERVISOR device and updated LV function is needed. She remains significantly hypotensive and metoprolol will be held. Continue to monitor on telemetry overnight. Admission and Anticipated Discharge Date Admission Date: August 06, 2021 Subjective Patient seen and examined, chart reviewed and case discussed with nursing. States that she continues to feel weak and tired but denies chest pain, shortness of breath, palpitations, lightheadedness, dizziness or syncope. Telemetry reviewed: Paced rhythm Review of Systems Review of Systems: All systems reviewed & are unremarkable except as noted in HPI & below Physical Exam Physical Exam: General: Awake, alert and oriented x 3. No acute distress. HEENT: Normocephalic, atraumatic. Pupils equal, round and reactive to light and accommodation. Extraocular muscles are intact. Anicteric sclera. Moist mucous membranes. Neck: No JVD. No bruit. Cardiovascular: Regular. Positive S-4. Normal S-1 and S-2. No S-3. 3/6 holosystolic ejection murmur, 5th intercostal space, mid-clavicular line without radiation. No rubs. Pulmonary: Clear to auscultation bilaterally. No rales, rhonchi, or wheezing. Abdomen: Bowel sounds x 4, soft. No rebound, guarding or tenderness. No organomegaly. Extremities: No clubbing, cyanosis or edema. +2 pedal pulses bilaterally. Skin: Warm and dry. Results & Data ([facility]) Vital Signs (Past 12 Hours) Vital Signs Temp Pulse Resp BP BP Pulse Ox 08/08/21 11:49 36.6 C 90 18 97/65 L 97 08/08/21 07:05 36.5 C 75 18 95/60 L 100 08/08/21 03:49 36.6 C 71 14 88/59 L 98
[2021-08-08] MEDS: WARFARIN SOD 5 MG TAB PO SCH (16:55)
--- NOTE | 2021-08-08 18:49 | Hospitalist Progress Note ---
Date of Service August 08, 2021 Assessment & Plan (1) Hypotension: Plan: 70 y/o F with PMH persistent atrial fibrillation, on warfarin, s/p DANAE guided DCCV in 10/2018 with recurrent atrial fibrillation s/p cardioversion 05/05/2020, 09/05/2020 with recurrent atrial fibrillation 12/2020, tachybrady syndrome s/p PPM, diastolic CHF, history of gastric bypass, COPD, depression who presented to ED shortness of breath, weakness, slight weight gain and hypotension. Blood pressure on admission was in the 80s systolic Received IV albumin on admission Diuretic on hold BP continue to be low Reviewed BP in last admission it was running between 90's to low 100's systolic Metoprolol was on hold today Continue monitor BP (2) Chronic heart failure with preserved ejection fraction (HFpEF): Plan: He does not show any signs of fluid overload. CXR showed no evidence for pulmonary edema. Recent echo today showed no LV wall motion abnormality with ejection fraction 60 to 65%. Moderate tricuspid regurgitation. Moderate left atrial enlargement Lasix was placed on hold due to low BP Cardiology on board A-fib: S/P DANAE guided DCCV in 10/2018 with recurrent atrial fibrillation, s/p cardioversion 05/05/2020, 09/05/2020 with recurrent atrial fibrillation 12/2020. 02/04 sotalol discontinued. Recent hospitalization for Tikosyn. Tikosyn discontinued 02/2021. Dr Ivey's office note reported pt may need an upgrade to BiV ppm next month Metoprolol decreased to 25 mg twice daily due to low BP Continue digoxin home dose INR 1.7 today Continue Coumadin and monitor PT/INR Tachy-corin syndrome: s/p PPM Follows with Dr. Ivey . Her office note reported pt may need an upgrade to BiV ppm Stable COPD (chronic obstructive pulmonary disease): No acute exacerbation Continue Advair, as needed albuterol, Accolate Anemia: Hgb: 10.4 today No signs of bleeding Continue iron supplement DVT Prophylaxis On Coumadin with INR 1.7 Full code Disposition Continue monitor in PCU Admission and Anticipated Discharge Date Admission Date: August 06, 2021 Subjective Patient was seen and examined for follow-up of weakness, fatigue and SOB Lying in bed with no acute distress Denies any chest pain, palpitation, dizziness, and fever. Review of Systems Review of Systems: All systems reviewed & are unremarkable except as noted in Subjective Physical Exam Physical Exam: General- No acute distress Head- atraumatic Eyes- PERRL, EOMI, ENT- oropharynx clear Neck- supple, no JVD Lungs- clear to auscultation Heart- regular rhythm Abdomen- normal bowel sounds, soft, nontender Extremities- no calf tenderness, +edema Neuro- alert, oriented x 3; PERRL, EOMI; no facial palsy; no dysarthria Skin- warm & dry Results & Data Results & Data ([facility]) Vital Signs (Past 12 Hours) Vital Signs Temp Pulse Pulse Resp BP BP Pulse Ox 08/08/21 16:00 70 08/08/21 15:46 36.4 C L 74 18 98/63 L 98 08/08/21 11:49 36.6 C 90 18 97/65 L 97 08/08/21 08:00 70 08/08/21 07:05 36.5 C 75 18 95/60 L 100
[2021-08-09 06:05] LABS: INR 1.7 (0.9-1.1); Prothrombin Time 16.3 Seconds (9.0-12.0)
[2021-08-09 06:28] LABS: BUN Creatinine Ratio 32.9 (10-20); Calcium 7.9 mg/dl (8.5-10.1); Est GFR (Non-African American) 85.4 ml/min
[2021-08-09] MEDS: FLUTICASONE/VILANTEROL 100/25MCG 14 PUFFS/INHALER INH SCH (08:47)
[2021-08-09] MEDS: DIGOXIN 0.125 MG TAB PO SCH (08:47)
[2021-08-09] MEDS: MAGNESIUM OXIDE 400 MG TAB PO SCH (08:48)
[2021-08-09] MEDS: MULTIVITAMIN CHEWABLE TAB PO SCH (08:49)
[2021-08-09] MEDS: SERTRALINE HCL 50 MG TABLET PO SCH (08:49)
[2021-08-09] MEDS: METOPROLOL SUCC 25MG EXT REL TAB PO SCH ×3 (09:15→20:22)
--- NOTE | 2021-08-09 11:26 | Cardiology Progress Note ---
Date of Service August 09, 2021 Assessment & Plan (1) Hypotension: (2) Chronic heart failure with preserved ejection fraction (HFpEF): (3) Severe tricuspid regurgitation: (4) Hypoalbuminemia: (5) A-fib: Plan: Patient admitted for weakness secondary to hypotension and SOB. Her chest xray is without acute process. Diuretics were held on admission. She appears euvolemic at this time. HR's controlled Agree with changing to metoprolol succinate 12.5 mg p.o. twice daily. Continue digoxin. I believe her ongoing LE edema is multifactorial due to hypoalbuminemia, low protein, anemia and venous insufficiency as well as CHF. She would benefit from daily compression stockings to help with edema and hypotension. She was to have outpatient echo today to reassess valvular heart disease as well as LV function given chronic RV pacing. Will order now. She is seeing EP next month to discuss potential benefit from PIT SUPERVISOR device and updated LV function is needed. Okay to discharge from a cardiac standpoint. Admission and Anticipated Discharge Date Admission Date: August 06, 2021 Subjective Patient seen and examined, chart reviewed. States that she is feeling okay today and is anxious for discharge. Still weak but denies chest pain, shortness of breath, palpitations, or lightheadedness. Telemetry reviewed: Paced rhythm Review of Systems Review of Systems: All systems reviewed & are unremarkable except as noted in HPI & below Physical Exam Physical Exam: General: Awake, alert and oriented x 3. No acute distress. HEENT: Normocephalic, atraumatic. Pupils equal, round and reactive to light and accommodation. Extraocular muscles are intact. Anicteric sclera. Moist mucous membranes. Neck: No JVD. No bruit. Cardiovascular: Regular. Positive S-4. Normal S-1 and S-2. No S-3. 3/6 holosystolic ejection murmur, 5th intercostal space, mid-clavicular line without radiation. No rubs. Pulmonary: Clear to auscultation bilaterally. No rales, rhonchi, or wheezing. Abdomen: Bowel sounds x 4, soft. No rebound, guarding or tenderness. No organomegaly. Extremities: No clubbing, cyanosis or edema. +2 pedal pulses bilaterally. Skin: Warm and dry. Results & Data ([facility]) Vital Signs (Past 12 Hours) Vital Signs Temp Pulse Pulse Resp BP Pulse Ox 08/09/21 08:47 109 H 08/09/21 08:00 36.7 C 73 18 93/62 L 99 08/09/21 07:36 72 08/09/21 04:00 70 17 101/67 99 08/08/21 23:50 36.6 C 73 17 90/60 L 96
[2021-08-09] MEDS: WARFARIN SOD 5 MG TAB PO SCH (17:17)
--- NOTE | 2021-08-09 23:55 | Hospitalist Progress Note ---
Date of Service August 09, 2021 Assessment & Plan (1) Hypotension: Plan: 70 y/o F with PMH persistent atrial fibrillation, on warfarin, s/p DANAE guided DCCV in 10/2018 with recurrent atrial fibrillation s/p cardioversion 05/05/2020, 09/05/2020 with recurrent atrial fibrillation 12/2020, tachybrady syndrome s/p PPM, diastolic CHF, history of gastric bypass, COPD, depression who presented to ED shortness of breath, weakness, slight weight gain and hypotension. Blood pressure on admission was in the 80s systolic Received IV albumin on admission Diuretic on hold BP continue to be low Reviewed BP in last admission it was running between 90's to low 100's systolic Metoprolol increased to 12.5 mg twice daily Continue monitor BP (2) Chronic heart failure with preserved ejection fraction (HFpEF): Plan: He does not show any signs of fluid overload. CXR showed no evidence for pulmonary edema. Recent echo today showed no LV wall motion abnormality with ejection fraction 60 to 65%. Moderate tricuspid regurgitation. Moderate left atrial enlargement Lasix was placed on hold due to low BP Cardiology on board A-fib: S/P DANAE guided DCCV in 10/2018 with recurrent atrial fibrillation, s/p cardiovers ion 05/05/2020, 09/05/2020 with recurrent atrial fibrillation 12/2020. 02/04 sotalol discontinued. Recent hospitalization for Tikosyn. Tikosyn discontinued 02/2021. Dr Ivey's office note reported pt may need an upgrade to BiV ppm next month Metoprolol decreased to 12.5 mg twice daily due to low BP Continue digoxin home dose INR 1.7 today Continue Coumadin and monitor PT/INR Tachy-corin syndrome: s/p PPM Follows with Dr. Ivey . Her office note reported pt may need an upgrade to BiV ppm Stable COPD (chronic obstructive pulmonary disease): No acute exacerbation Continue Advair, as needed albuterol, Accolate Anemia: Hgb: 10.4 today No signs of bleeding Continue iron supplement DVT Prophylaxis On Coumadin with INR 1.7 Full code Disposition Plan to discharge home tomorrow Admission and Anticipated Discharge Date Admission Date: August 06, 2021 Subjective Patient was seen and examined for follow-up of weakness, fatigue and SOB Lying in bed with no acute distress Denies any chest pain, palpitation, dizziness, and fever. Review of Systems Review of Systems: All systems reviewed & are unremarkable except as noted in Subjective Physical Exam Physical Exam: General- No acute distress Head- atraumatic Eyes- PERRL, EOMI, ENT- oropharynx clear Neck- supple, no JVD Lungs- clear to auscultation Heart- regular rhythm Abdomen- normal bowel sounds, soft, nontender Extremities- no calf tenderness, +edema Neuro- alert, oriented x 3; PERRL, EOMI; no facial palsy; no dysarthria Skin- warm & dry Results & Data Results & Data ([place]) Vital Signs (Past 12 Hours) Vital Signs Temp Pulse Pulse Resp BP BP Pulse Ox 08/09/21 23:49 36.7 C 70 16 98/60 L 97 08/09/21 20:20 80 94/60 L 08/09/21 19:31 36.3 C L 71 22 99/68 L 98 08/09/21 16:03 36.9 C 72 17 91/59 L 97 08/09/21 16:00 72
[2021-08-10 06:36] LABS: INR 1.7 (0.9-1.1); Prothrombin Time 16.5 Seconds (9.0-12.0)
[2021-08-10 07:05] LABS: BUN Creatinine Ratio 43.1 (10-20); Calcium 7.8 mg/dl (8.5-10.1); Creatinine Clr Calc Pharmacy 58.7 ml/min; Est GFR (Non-African American) 90.6 ml/min; Potassium 4.6 mmol/L (3.5-5.1)
[2021-08-10] MEDS: METOPROLOL SUCC 25MG EXT REL TAB PO SCH ×2 (08:06→20:43)
[2021-08-10] MEDS: SERTRALINE HCL 50 MG TABLET PO SCH (08:07)
[2021-08-10] MEDS: MAGNESIUM OXIDE 400 MG TAB PO SCH (08:07)
[2021-08-10] MEDS: FLUTICASONE/VILANTEROL 100/25MCG 14 PUFFS/INHALER INH SCH (08:07)
[2021-08-10] MEDS: DIGOXIN 0.125 MG TAB PO SCH (08:08)
[2021-08-10] MEDS: MULTIVITAMIN CHEWABLE TAB PO SCH (08:08)
--- NOTE | 2021-08-10 09:21 | Cardiology Progress Note ---
Date of Service August 10, 2021 Assessment & Plan (1) Hypotension: (2) Chronic heart failure with preserved ejection fraction (HFpEF): (3) Severe tricuspid regurgitation: (4) Hypoalbuminemia: (5) A-fib: Plan: Patient admitted for weakness secondary to hypotension and SOB. Chest x-ray is without acute process. Diuretics were held on admission. Volume status: Normovolemic. BP mildly hypotension. HR's well controlled. Continue metoprolol succinate and digoxin. Peripheral edema appears multifactorial in etiology - hypoalbuminemia, low protein, anemia and venous insufficiency, ? HFpEFF. Recommend daily compression stockings. Outpatient general cardiology and EP follow-up. Please call if any questions or concerns. Admission and Anticipated Discharge Date Admission Date: August 06, 2021 Supervising Physician Co-Signing Physician Notes I have seen and examined the patient. I have reviewed the medical record and discussed the case with Mr. Myers. I am concerned that this patient is malnourished. We do not have a clear etiology but in my discussion with her she indicates when she starts to eat she becomes nauseated. I believe a GI referral may be worthwhile. Subjective Patient seen and examined. Chart, medications, and telemetry reviewed. Feeling OK. No chest pain. No palpitations. No resting dyspnea, cough, orthopnea, or PND. Telemetry: Paced in the 60's. August 07, 2021 TTE Interpretation Summary ([facility], Dr. Menchaca): Normal LV chamber size. Moderate concentric LVH. Normal LV systolic function. EF 60-65%. Abnormal apical wall motion, consistent with RV pacing, otherwise no segmental LV WMA's. Grade II diastolic dysfunction. Moderate tricuspid regurgitation. No pulmonary hypertension. Moderate left atrial enlargement. Review of Systems Review of Systems: Full ROS: Generalized weakness. Improved edema. Headache. Complete ROS is otherwise negative or noncontributory. Physical Exam Physical Exam: General: A&Ox3. NAD. HENT: Normocephalic. Atraumatic. Eyes: PER. Conjunctiva pink, sclera clear. Mouth: Poor dentition. Neck: No carotid bruits. No JVD. No HJR. Heart: RRR. Soft apical systolic murmur. Lungs: Clear to auscultation. Abdomen: +BS. Soft. Nontender. No masses or organomegaly. Extremities: No significant edema. No clubbing. no cyanosis. Limited neurological examination is without focal deficits. Pulses: radial=2/4, posterior tibial=1/4. Results & Data ([facility]) Vital Signs (Past 12 Hours) Vital Signs Temp Pulse Pulse Resp BP BP Pulse Ox 08/10/21 08:08 76 08/10/21 07:57 36.4 C L 76 18 100/67 100 08/10/21 04:16 36.5 C 74 15 107/71 100 08/09/21 23:49 36.7 C 70 16 98/60 L 97 Laboratory Results Laboratory Results - last 24 hr 08/10/21 08/10/21 05:49 05:49 PT 16.5 H INR 1.7 H Sodium 140 Potassium 4.6 Chloride 108 H Carbon Dioxide 29 Anion Gap 3.0 BUN 28 H Creatinine 0.65 Est Cr Clr Drug Dosing 58.7 Est GFR ( Amer) 105.0 Est GFR (Non-Af Amer) 90.6 BUN/Creatinine Ratio 43.1 H Glucose 68 L Calcium 7.8 L
--- NOTE | 2021-08-10 12:14 | Gastrointestinal Consultation ---
Date of Consultation August 10, 2021 Assessment & Plan (1) Nausea: Ms. Andra Higgins is a 71-year-old female with multiple comorbidities including CHF, admitted with weakness and hypotension, GI consulted for ongoing nausea without vomiting. Patient has had this over the last several weeks, and describes it as mostly postprandial in nature along with early satiety. She has had no recent GI imaging. Her chronic anemia appears to be near baseline. Diff dx to consider would be PUD/anastomotic ulcer/gastritis, biliary source vs related to numerous abd surgeries, vs medication effect, vs gastroparesis. Pt currently eating lunch in bed; abd is soft. Hypotension improved; being managed by cardiology and primary teams. - Consider starting low-dose PPI - Will make NPO after midnight - Will plan to complete EGD tomorrow as an inpt - Can check RUQ to eval for biliary source - If initial testing is unremarkable, an upper GI series may be helpful given her previous surgical hx Thank you for allowing us to participate in the care of this patient. Please call with any acute changes, questions or concerns. Please see addendum below with additional recommendation from my supervising physician. Supervising Physician Co-Signing Physician Notes I saw and evaluated the patient. We are consulted for evaluation of post- prandial nausea ongoing for several weeks. The patient is s/p subtotal gastrectomy in 2014, last EGD in 2016. PE: NAD No abdominal tenderness Impression: postprandial nausea, this could be relate to her prior surgical history or perhaps a medication (patient is on a SSRI). Recomendations: 1) RUQ US 2) EGD (can be done as OP if patient being discharged) 3) stop the patients SSRI History of Present Illness Reason for Consultation: Ongoing Nausea Requesting Physician: Dr. Gao Attending Physician: Sri Gao MD History of Present Illness Mr. Andra Higgins is a 70 y/o female with PMHx persistent atrial fibrillation on warfarin, tachybrady syndrome s/p PPM, diastolic CHF, history of gastric bypass, COPD, depression who was admitted after presenting to ED shortness of breath, weakness and hypotension. GI consulted today for concern over ongoing nausea. Pt states for several weeks she's had intermittent nausea. This tends to be post-prandial, though not precipitated by any food in particular. Assoc symptoms including early satiety. No recent change in meds or new meds. Currently is eating a heart-healthy diet. 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 Has chronic dyspnea. Denies abd pain, vomiting, hematemesis, melena, hematochezia, heartburn, dysphagia, odynophagia, bloating, belching, fever, chills, CP, cough She has had a number of abdominal surgeries including gastric bypass x 2, cholecystectomy, several hernia repairs, appendectomy, small bowel resection. Last EGD in 2016: - Normal upper third of esophagus and middle third of esophagus Esophageal mucosal changes suspicious for short segment Haro's esophagus. Biopsied. -Gastric bypass intact staple line. Biopsy. - Bx = no worrisome findings Last colonoscopy 08/2016: 5 mm hyperplastic polyp in the transverse colon. Internal hemorrhoids Colonoscopy 03/2016: Tubular adenomatous polyp Allergies Allergy/AdvReac Type Severity Reaction Status Date / Time oxycodone AdvReac Intermediate GI SYMPTOMS Verified 08/06/21 17:18 Home Medications Medication Instructions Recorded Confirmed Type albuterol sulfate 90 mcg/actuation 2 puff INHALATION QID PRN 07/20/18 08/06/21 History aerosol inhaler (Ventolin HFA) cholecalciferol (vitamin D3) 50 2,000 unit PO QAM 07/20/18 08/06/21 History mcg (2,000 unit) capsule (Vitamin D3) fluticasone 250 mcg-salmeterol 50 1 inh INHALATION BID 07/20/18 08/06/21 History mcg/dose blistr powdr for inhalation (Advair Diskus) pediatric multivitamin no.7-folic 1 tab PO QAM 07/20/18 08/06/21 History acid 100 mcg chewable tablet (Flintstones Tab Chew) sertraline 50 mg tablet (Zoloft) 50 mg PO QAM 07/20/18 08/06/21 History warfarin 2.5 mg tablet See Rx Instructions .ROUTE .COMPLEX 07/20/18 08/06/21 History magnesium oxide 400 mg (241.3 mg 400 mg PO QAM #34 tab 04/23/20 08/06/21 Rx magnesium) tablet zafirlukast 20 mg tablet (Accolate) 20 mg PO BID 12/25/20 08/06/21 History iron,carbonyl 65 mg-vitamin C 125 1 tab PO BID 02/11/21 08/06/21 History mg tablet,delayed release (Vitron-C) furosemide 40 mg tablet 40 mg PO DAILY 03/27/21 08/06/21 History metoprolol succinate 50 mg 50 mg PO BID 03/27/21 08/06/21 History tablet,extended release 24 hr digoxin 125 mcg (0.125 mg) tablet 125 mcg PO DAILY #30 tab 04/01/21 08/06/21 Rx (Digitek) spironolactone 25 mg tablet 12.5 mg PO DAILY #15 tab 04/01/21 08/06/21 Rx potassium chloride 10 mEq 20 meq PO DAILY 08/06/21 08/06/21 History tablet,extended release(part/cryst) Patient History Medical History A-fib S/P DANAE guided DCCV 10/2018. Reverted back to afib 03/2020. External DCCV 04/23/20. 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 Surgical History H/O colonoscopy H/O gastric bypass H/O hernia repair H/O ventral hernia repair History of cholecystectomy Pacemaker LAST CHECK AUG 2020 S/P appendectomy S/P small bowel resection Family History Other Cancer Hypertension Lung disease Social History Smoking Status: Never smoker Second Hand Exposure: Yes; Do You Dip or Chew Tobacco: No; Tobacco Cessation Education Requested by Patient: No Hx Alcohol Use: No Hx Substance Use: No Preferred Language: Azerbaijani Communication Ability: Effective Pot Press Operator Required: No Beliefs That Will Affect Care: None Current Living Situation: Spouse current occupational status: employed Other Information That Helps Us Care for You: No Feels Safe at Home: Yes Safety Concerns: Feels Safe At This Time Assistive Devices: Cane and Glasses Review of Systems Review of Systems: All systems reviewed & are unremarkable except as noted in Subjective Physical Exam Constitutional: WD/WN, vitals as above + chronically ill Eyes: sclera anicteric Neck: trachea midline, no thyromegaly Respiratory: normal respiratory effort, lungs clear to auscultation Cardiovascular: RRR Gastrointestinal (Abdomen): normal bowel sounds, soft, nontender, no hepatosplenomegaly Skin: no rashes, warm and dry Psychiatric: A+Ox3, euthymic affect Results & Data ([facility]) Vital Signs (Past 12 Hours) Vital Signs Temp Pulse Pulse Resp BP BP Pulse Ox 08/10/21 11:06 36.4 C L 74 18 100/67 100 08/10/21 08:08 76 08/10/21 07:57 36.4 C L 76 18 100/67 100 08/10/21 04:16 36.5 C 74 15 107/71 100 Laboratory Results 08/10/21 08/10/21 Range/Units 05:49 05:49 PT 16.5 H (9.0-12.0) Seconds INR 1.7 H (0.9-1.1) Sodium 140 (136-145) mmol/L Potassium 4.6 (3.5-5.1) mmol/L Chloride 108 H (98-107) mmol/L Carbon Dioxide 29 (21-32) mmol/L Anion Gap 3.0 (3-11) BUN 28 H (7-18) mg/dl Creatinine 0.65 (0.6-1.2) mg/dl Est Cr Clr Drug Dosing 58.7 ml/min Est GFR ( Amer) 105.0 ml/min Est GFR (Non-Af Amer) 90.6 ml/min BUN/Creatinine Ratio 43.1 H (10-20) Glucose 68 L (70-99) mg/dl Calcium 7.8 L (8.5-10.1) mg/dl
--- NOTE | 2021-08-10 12:15 | Hospitalist Progress Note ---
Date of Service August 10, 2021 Assessment & Plan (1) Hypotension: Plan: 70 y/o F with PMH persistent atrial fibrillation, on warfarin, s/p DANAE guided DCCV in 10/2018 with recurrent atrial fibrillation s/p cardioversion 05/05/2020, 09/05/2020 with recurrent atrial fibrillation 12/2020, tachybrady syndrome s/p PPM, diastolic CHF, history of gastric bypass, COPD, depression who presented to ED shortness of breath, weakness, slight weight gain and hypotension. Blood pressure on admission was in the 80s systolic Received IV albumin on admission Diuretic on hold BP continue to be low Reviewed BP in last admission it was running between 90's to low 100's systolic Continue Metoprolol 12.5 mg BID Continue monitor BP (2) Chronic heart failure with preserved ejection fraction (HFpEF): Plan: He does not show any signs of fluid overload. CXR showed no evidence for pulmonary edema. Recent echo today showed no LV wall motion abnormality with ejection fraction 60 to 65%. Moderate tricuspid regurgitation. Moderate left atrial enlargement Lasix was placed on hold due to low BP Cardiology on board Will discontinue diuretic on discharge Recommend daily compression stockings. A-fib: S/P DANAE guided DCCV in 10/2018 with recurrent atrial fibrillation, s/p cardioversion 05/05/2020, 09/05/2020 with recurrent atrial fibrillation 12/2020. 02/04 sotalol discontinued. Recent hospitalization for Tikosyn. Tikosyn discontinued 02/2021. Dr Ivey's office note reported pt may need an upgrade to BiV ppm next month Metoprolol decreased to 12.5 mg twice daily due to low BP Continue digoxin home dose and Metoprolol 12.5mg BID INR 1.7 today Continue Coumadin and monitor PT/INR Tachy-corin syndrome: s/p PPM Follows with Dr. Ivey . Her office note reported pt may need an upgrade to BiV ppm Stable COPD (chronic obstructive pulmonary disease): No acute exacerbation Continue Advair, as needed albuterol, Accolate Anemia: Hgb: 10.4 No signs of bleeding Continue iron supplement DVT Prophylaxis On Coumadin with INR 1.7 Full code Disposition Plan to discharge home today Admission and Anticipated Discharge Date Admission Date: August 06, 2021 Subjective Patient was seen and examined for follow-up of weakness, fatigue and SOB Lying in bed with no acute distress Pt said that she feels ok Cardiology told me that pt said that the main reason she came to the hospital was due to ongoing nausea Cardiology would like GI to see pt before discharging Denies any chest pain, palpitation, dizziness, and fever. Review of Systems Review of Systems: All systems reviewed & are unremarkable except as noted in Subjective Physical Exam Physical Exam: General- No acute distress Head- atraumatic Eyes- PERRL, EOMI, ENT- oropharynx clear Neck- supple, no JVD Lungs- clear to auscultation Heart- regular rhythm Abdomen- normal bowel sounds, soft, nontender Extremities- no calf tenderness, +edema Neuro- alert, oriented x 3; PERRL, EOMI; no facial palsy; no dysarthria Skin- warm & dry Results & Data Results & Data ([facility]) Vital Signs (Past 12 Hours) Vital Signs Temp Pulse Pulse Resp BP BP Pulse Ox 08/10/21 11:06 36.4 C L 74 18 100/67 100 08/10/21 08:08 76 08/10/21 07:57 36.4 C L 76 18 100/67 100 08/10/21 04:16 36.5 C 74 15 107/71 100
--- NOTE | 2021-08-10 17:13 | Ultrasound Report ---
US liver CLINICAL HISTORY: nausea TECHNIQUE: Multiple real-time sonographic images of the right upper quadrant were obtained. Comparison: None available at the time of this dictation. FINDINGS: The liver is diffusely homogenous with normal contour and echogenicity. No focal mass lesions are se en. No intrahepatic ductal dilatation is seen. Patient is status post cholecystectomy. There is n o pericholecystic fluid present. The common duct measures 1.4 cm in diameter at the level of the hepa tic artery. The visualized portions of the pancreas appear normal. The right kidney shows normal echogenicity, cortical thickness and renal contour. The right kidney sh ows no evidence of hydronephrosis or mass. No ascites or free fluid is seen in Martinez's pouch. IMPRESSION: Status post cholecystectomy with physiologic common bile duct dilation. No evidence of acute abnormal ity is seen. ACT 112: Negative or not required by law. Electronically signed by: Jose Elias Márquez M.D. 08/10/2021 5:12 PM
[2021-08-10] MEDS: WARFARIN SOD 5 MG TAB PO SCH (17:18)
[2021-08-11 06:18] LABS: INR 2.3 (0.9-1.1); Prothrombin Time 21.8 Seconds (9.0-12.0)
--- NOTE | 2021-08-11 08:21 | Anesthesiology Consultation ---
Date of Service August 11, 2021 Assessment & Plan Chart Review Chart Review: Acceptable Risk for Surgery and Patient NOT seen in Pre Admission Testing Consults Requested none History Surgery Operation Date: 08/11/21 16:00 Proposed Procedures p Esophagogastroduodenoscopy Dr Rashi Markham, Height/Weight Height: 5 ft Weight: 51.7 kg Allergies Allergy/AdvReac Type Severity Reaction Status Date / Time oxycodone AdvReac Intermediate GI SYMPTOMS Verified 08/06/21 17:18 Medications Home Medications Medication Instructions Recorded Confirmed Last Taken albuterol sulfate 90 mcg/actuation 2 puff INHALATION QID PRN 07/20/18 08/06/21 Unknown aerosol inhaler (Ventolin HFA) cholecalciferol (vitamin D3) 50 2,000 unit PO QAM 07/20/18 08/06/21 08/06/21 mcg (2,000 unit) capsule (Vitamin D3) fluticasone 250 mcg-salmeterol 50 1 inh INHALATION BID 07/20/18 08/06/21 08/06/21 08:00 mcg/dose blistr powdr for inhalation (Advair Diskus) pediatric multivitamin no.7-folic 1 tab PO QAM 07/20/18 08/06/21 08/06/21 acid 100 mcg chewable tablet (Flintstones Tab Chew) sertraline 50 mg tablet (Zoloft) 50 mg PO QAM 07/20/18 08/06/21 08/06/21 warfarin 2.5 mg tablet See Rx Instructions .ROUTE .COMPLEX 07/20/18 08/06/21 08/06/21 magnesium oxide 400 mg (241.3 mg 400 mg PO QAM #34 tab 04/23/20 08/06/21 08/06/21 magnesium) tablet zafirlukast 20 mg tablet (Accolate) 20 mg PO BID 12/25/20 08/06/21 08/06/21 08:00 iron,carbonyl 65 mg-vitamin C 125 1 tab PO BID 02/11/21 08/06/21 08/06/21 08:00 mg tablet,delayed release (Vitron-C) furosemide 40 mg tablet 40 mg PO DAILY 03/27/21 08/06/21 08/06/21 40MG BID metoprolol succinate 50 mg 50 mg PO BID 03/27/21 08/06/21 08/06/21 08:00 tablet,extended release 24 hr digoxin 125 mcg (0.125 mg) tablet 125 mcg PO DAILY #30 tab 04/01/21 08/06/21 08/06/21 (Digitek) spironolactone 25 mg tablet 12.5 mg PO DAILY #15 tab 04/01/21 08/06/21 Unknown potassium chloride 10 mEq 20 meq PO DAILY 08/06/21 08/06/21 08/06/21 tablet,extended release(part/cryst) Active Medications Generic Name Dose Route Start Last Admin Trade Name Sarwat PRN Reason Stop Dose Admin Digoxin 0.125 mg 08/07/21 09:00 08/10/21 08:08 Digoxin 0.125 Mg Tab PO 09/06/21 08:59 0.125 mg QAM ISHAN Administration Fluticasone/Vilanterol 1 puffs 08/07/21 09:00 08/10/21 08:07 Fluticasone/Vilanterol 100/25mcg 14 Puffs/Inhaler INH 09/06/21 08:59 1 puffs DAILY ISHAN Administration Magnesium Oxide 400 mg 08/07/21 09:00 08/10/21 08:07 Magnesium Oxide 400 Mg Tab PO 09/06/21 08:59 400 mg QAM ISHAN Administration Metoprolol Succinate 12.5 mg 08/09/21 11:15 08/10/21 20:43 Metoprolol Succ 25mg Ext Rel Tab PO 09/08/21 11:14 Not Given BID ISHAN Miscellaneous 1 ea 08/07/21 00:45 08/11/21 01:38 Accolate~Order Awaiting Action N/A 09/06/21 00:44 Not Given QS ISHAN Multivitamins/Folic Acid/Vitamin C 1 tab 08/07/21 09:00 08/10/21 08:08 Multivitamin Chewable Tab PO 09/06/21 08:59 1 tab QAM ISHAN Administration Sertraline HCl 50 mg 08/07/21 09:00 08/10/21 08:07 Sertraline Hcl 50 Mg Tablet PO 09/06/21 08:59 50 mg QAM ISHAN Administration Warfarin Sodium 5 mg 08/08/21 16:00 08/10/21 17:18 Warfarin Sod 5 Mg Tab PO 09/07/21 15:59 5 mg DAILY@1600 ISHAN Administration Past Medical History Medical History A-fib S/P DANAE guided DCCV 10/2018. Reverted back to afib 03/2020. External DCCV 04/23/20. 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 Past Family History Family History Other Cancer Hypertension Lung disease Past Surgical History Surgical History H/O colonoscopy H/O gastric bypass H/O hernia repair H/O ventral hernia repair History of cholecystectomy Pacemaker LAST CHECK AUG 2020 S/P appendectomy S/P small bowel resection Social History Smoking Status: Never smoker Do You Dip or Chew Tobacco: No Hx Alcohol Use: No Alcohol type: beer alcohol intake frequency: holidays/special occasions only Alcohol Intake Frequency Comment: Not anymore Hx Substance Use: No substance use type: does not use Physical Exam Vital Signs Last Vital Signs Temp 98.1 F 08/11/21 07:30 Pulse 75 08/11/21 07:30 Resp 14 08/11/21 07:30 BP 97/63 L 08/11/21 07:30 Pulse Ox 96 08/11/21 07:30 Testing Laboratory Results 08/08/21 10:01 08/10/21 05:49 PT 21.8 Seconds (9.0-12.0) H 08/11/21 05:23 INR 2.3 (0.9-1.1) H 08/11/21 05:23 APTT 36.2 Seconds (21.0-31.0) H 08/06/21 15:50 Urine Color Yellow 08/06/21 16:55 Urine Appearance Clear (Clear) 08/06/21 16:55 Urine pH 5.0 (4.5-7.5) 08/06/21 16:55 Ur Specific [place] 1.006 (1.000-1.030) 08/06/21 16:55 Urine Protein Negative (Negative) 08/06/21 16:55 Urine Glucose (UA) Negative (Negative) 08/06/21 16:55 Urine Ketones Negative (Negative) 08/06/21 16:55 Urine Nitrite Negative (Negative) 08/06/21 16:55 Ur Leukocyte Esterase Trace (Negative) H 08/06/21 16:55 Urine WBC (Auto) 1-5 /hpf (0-5) 08/06/21 16:55 Urine RBC (Auto) 0-4 /hpf (0-4) 08/06/21 16:55 U Hyaline Cast (Auto) 1-5 /lpf (0-5) 08/06/21 16:55 U Epithel Cells (Auto) 20-30 /lpf (0-5) H 08/06/21 16:55 Urine Bacteria (Auto) Negative (Negative) 08/06/21 16:55 Electrocardiogram Date: 08/06/21 V Paced at 82 bpm Chest X-Ray Date: 08/06/21 Findings: + NAD Echocardiogram Date: 08/07/21 EF: 60-65 grade 2 diastolic dysfunction
--- NOTE | 2021-08-11 08:36 | History & Physical Bridge Note ---
Date of Service August 11, 2021 History & Physical Bridge Note I have examined the patient, reviewed the History & Physical and in the interval since the performance of the History & Physical I have noted the following changes of clinical significance: no changes noted. We are planning to do upper endoscopy for further evaluation of the patient's nausea. The risks of the procedure have been discussed with the patient to include bleeding, infection, perforation, pain, aspiration and need for follow-up studies.
[2021-08-11] MEDS ORDERED: ATROPINE SULFATE 0.1 MG/ML 10ML SYR IV PRN (08:43)
[2021-08-11] MEDS ORDERED: ONDANSETRON INJ 2 MG/ML 2 ML VIAL IV PRN (08:43)
[2021-08-11] MEDS ORDERED: ePHEDrine sulfate 50 MG/ML AMP IV PRN (08:43)
[2021-08-11] MEDS ORDERED: PROPOFOL IV EMULSION 10 MG/ML 20 ML VIAL IV ONE (08:52)
[2021-08-11] MEDS ORDERED: LIDOCAINE 2% 2 ML VIAL/AMP(20MG/ML) INFIL ONE (08:52)
--- NOTE | 2021-08-11 09:06 | Communication Note ---
Date of Service: August 11, 2021 Patient underwent upper endoscopy today. She does have an irregular Z-line in addition to evidence of a prior subtotal gastrectomy. There is no obvious cause of the patient's symptoms today. Perhaps the patient's symptoms are related to one of her medications such as her SSRI. Please call with any questions or concerns GI to sign off
--- NOTE | 2021-08-11 09:10 | GI REPORT ---
Patient Name: Andra Higgins Procedure Date: 08/11/2021 9:00 AM Date of : 1950 Admit Type: Inpatient Age: 71 Gender: Female Attending MD: Tammi Markham DO Procedure: Upper GI endoscopy Providers: Tammi Markham DO Referring MD: Russell Olvera Indications: Nausea Medicines: Monitored Anesthesia Care Complications: No immediate complications. Estimated blood loss: Minimal. Estimated Blood Loss: Estimated blood loss: none. Procedure: Pre-Anesthesia Assessment: - Prior to the procedure, a History and Physical was performed, and patient medications, allergies and sensitivities were reviewed. The patient's tolerance of previous anesthesia was reviewed. - The risks and benefits of the procedure and the sedation options and risks were discussed with the patient. All questions were answered and informed consent was obtained. - Patient identification and proposed procedure were verified prior to the procedure by the physician, the nurse and the sharepoint engineer. The procedure was verified in the procedure room. - Pre-procedure physical examination revealed no contraindications to sedation. - ASA Grade Assessment: III - A patient with severe systemic disease. - After reviewing the risks and benefits, the patient was deemed in satisfactory condition to undergo the procedure. - The anesthesia plan was to use monitored anesthesia care (MAC). - Immediately prior to administration of medications, the patient was re-assessed for adequacy to receive sedatives. - The heart rate, respiratory rate, oxygen saturations, blood pressure, adequacy of pulmonary ventilation, and response to care were monitored throughout the procedure. - The physical status of the patient was re-assessed after the procedure. After obtaining informed consent, the endoscope was passed under direct vision. Throughout the procedure, the patient's blood pressure, pulse, and oxygen saturations were monitored continuously. The Endoscope was introduced through the mouth, and advanced to the jejunum. The upper GI endoscopy was accomplished without difficulty. The patient tolerated the procedure well. Findings: The upper third of the esophagus and middle third of the esophagus were normal. The Z-line was irregular and was found 36 cm from the incisors. Biopsies were taken with a cold forceps for histology. The pathology specimen was placed into Bottle A. Estimated blood loss was minimal. Evidence of a previous surgical anastomosis was found in the anastomosis (prior subtotal gastrectomy). This was characterized by healthy appearing mucosa. The examined jejunum was normal. Impression: - Normal upper third of esophagus and middle third of esophagus. - Z-line irregular, 36 cm from the incisors. Biopsied. - A previous surgical anastomosis was found consistent with the patient's prior history of a subtotal gastrectomy, characterized by healthy appearing mucosa. - Normal examined jejunum. Recommendation: - Return patient to hospital vaca for ongoing care. - Await pathology results. - Nausea likely related to medication such as her SSRI - Return to GI clinic PRN. Tammi Markham D.O. Tammi Markham, 08/11/2021 9:09:56 AM This report has been signed electronically. Note Initiated On: 08/11/2021 9:00 AM Number of Addenda: 0 I attest to the content of the Intraoperative Record and orders documented therein, exceptions below {[id number]}
--- NOTE | 2021-08-11 09:57 | Anesthesiology Progress Note ---
Date of Service August 11, 2021 Anesthesia Post Procedure Vital Signs Vital Signs: Temp Pulse Pulse Pulse Resp BP Pulse Ox 08/11/21 09:55 69 10 L 100/62 98 08/11/21 09:40 70 10 L 98/64 L 100 08/11/21 09:25 71 72 H 100/70 100 08/11/21 09:11 75 10 L 99/63 L 100 08/11/21 08:42 97.7 F 74 18 96/63 L 98 08/11/21 07:30 98.1 F 75 14 97/63 L 96 08/11/21 07:16 70 08/11/21 02:58 98.2 F 81 18 99/65 L 98 08/11/21 01:42 72 08/10/21 22:53 98.1 F 77 18 99/64 L 97 08/10/21 19:42 98.1 F 71 18 92/61 L 97 08/10/21 15:43 97.9 F 72 18 90/59 L 96 08/10/21 11:06 97.5 F L 74 18 100/67 100 Pain Intensity Head: Pain Intensity: 7 Transfer of Care Handoff Completed per policy Notes Mental Status: alert / awake / arousable and participated in evaluation Patient Amnestic to Procedure: Yes Nausea / Vomiting: adequately controlled Pain: adequately controlled Airway Patency, RR, SpO2: stable & adequate BP & HR: stable & adequate Hydration State: stable & adequate Anesthetic Complications: no major complications apparent and Pt Satisfied with anesthetic care
[2021-08-11] MEDS: DIGOXIN 0.125 MG TAB PO SCH (10:46)
[2021-08-11] MEDS: FLUTICASONE/VILANTEROL 100/25MCG 14 PUFFS/INHALER INH SCH (10:47)
[2021-08-11] MEDS: MAGNESIUM OXIDE 400 MG TAB PO SCH (10:48)
[2021-08-11] MEDS: METOPROLOL SUCC 25MG EXT REL TAB PO SCH (10:48)
[2021-08-11] MEDS: MULTIVITAMIN CHEWABLE TAB PO SCH (10:48)
[2021-08-11] MEDS: SERTRALINE HCL 50 MG TABLET PO SCH (10:49)
[2021-08-11] MEDS ORDERED: DOXYCYCLINE HYCLATE 100 MG CAP PO STA (13:15)
--- NOTE | 2021-08-11 13:16 | Hospitalist Progress Note ---
Date of Service August 11, 2021 Assessment & Plan (1) Hypotension: Plan: 70 y/o F with PMH persistent atrial fibrillation, on warfarin, s/p DANAE guided DCCV in 10/2018 with recurrent atrial fibrillation s/p cardioversion 05/05/2020, 09/05/2020 with recurrent atrial fibrillation 12/2020, tachybrady syndrome s/p PPM, diastolic CHF, history of gastric bypass, COPD, depression who presented to ED shortness of breath, weakness, slight weight gain and hypotension. Blood pressure on admission was in the 80s systolic Received IV albumin on admission Diuretic on hold BP continue to be low Reviewed BP in last admission it was running between 90's to low 100's systolic Continue Metoprolol 12.5 mg BID Case discussed with cardiology that recommended no diuretic on discharge Continue monitor BP (2) Chronic heart failure with preserved ejection fraction (HFpEF): Plan: He does not show any signs of fluid overload. CXR showed no evidence for pulmonary edema. Recent echo today showed no LV wall motion abnormality with ejection fraction 60 to 65%. Moderate tricuspid regurgitation. Moderate left atrial enlargement Lasix was placed on hold due to low BP Cardiology on board Will discontinue diuretic on discharge Recommend daily compression stockings. A-fib: S/P DANAE guided DCCV in 10/2018 with recurrent atrial fibrillation, s/p cardioversion 05/05/2020, 09/05/2020 with recurrent atrial fibrillation 12/2020. 02/04 sotalol discontinued. Recent hospitalization for Tikosyn. Tikosyn discontinued 02/2021. Dr Ivey's office note reported pt may need an upgrade to BiV ppm next month Metoprolol decreased to 12.5 mg twice daily due to low BP Continue digoxin home dose and Metoprolol 12.5mg BID INR 2.3 today Continue Coumadin and monitor PT/INR Nausea Possible related medication RUQ u/s showed Status post cholecystectomy with physiologic common bile duct dilation. No evidence of acute abnormality is seen. GI on board S/P EGD done today with irregular Z-line in addition to evidence of a prior subtotal gastrectomy. There is no obvious cause of the patient's symptoms today. Stable Tachy-corin syndrome: s/p PPM Follows with Dr. Ivey . Her office note reported pt may need an upgrade to BiV ppm Stable Possible IV site infection No sign of fever or erythema Will give Keflex BID Continue monitor closely COPD (chronic obstructive pulmonary disease): No acute exacerbation Continue Advair, as needed albuterol, Accolate Anemia: Hgb: 10.4 No signs of bleeding Continue iron supplement DVT Prophylaxis On Coumadin with INR 2.3 Full code Disposition Plan to discharge home today Admission and Anticipated Discharge Date Admission Date: August 06, 2021 Subjective Patient was seen and examined for follow-up of weakness, fatigue and SOB Lying in bed with no acute distress Pt said that she feels ok She said that she is not having nausea and vomiting She had EGD done today with no complication Denies any chest pain, palpitation, dizziness, and fever. Review of Systems Review of Systems: All systems reviewed & are unremarkable except as noted in Subjective Physical Exam Physical Exam: General- No acute distress Head- atraumatic Eyes- PERRL, EOMI, ENT- oropharynx clear Neck- supple, no JVD Lungs- clear to auscultation Heart- regular rhythm Abdomen- normal bowel sounds, soft, nontender Extremities- no calf tenderness, +edema Neuro- alert, oriented x 3; PERRL, EOMI; no facial palsy; no dysarthria Skin- warm & dry Results & Data Results & Data ([facility]) Vital Signs (Past 12 Hours) Vital Signs Temp Pulse Pulse Pulse Pulse Resp BP 08/11/21 12:14 36.5 C 75 67 69 15 93/63 L 08/11/21 10:39 36.5 C 67 15 93/63 L 08/11/21 09:55 69 10 L 100/62 08/11/21 09:40 70 10 L 98/64 L 08/11/21 09:25 71 10 L 100/70 08/11/21 09:11 75 10 L 99/63 L 08/11/21 08:42 36.5 C 74 18 96/63 L 08/11/21 07:30 36.7 C 75 14 97/63 L 08/11/21 07:16 70 08/11/21 02:58 36.8 C 81 18 99/65 L 08/11/21 01:42 72 BP Pulse Ox 08/11/21 12:14 107/71 97 08/11/21 10:39 97 08/11/21 09:55 98 08/11/21 09:40 100 08/11/21 09:25 100 08/11/21 09:11 100 10/26/21 08:42 98 08/11/21 07:30 96 08/11/21 07:16 08/11/21 02:58 98 08/11/21 01:42
[2021-08-11] MEDS ORDERED: MONTELUKAST SODIUM 10 MG TABLET PO SCH (21:00)
[2021-08-11] MEDS ORDERED: DOXYCYCLINE HYCLATE 100 MG CAP PO SCH (23:00)
== END 2021-08-11 15:43 | disposition home or self-care (01) | DRG 315 ==
LOC: ED 15:05 → EDINP 21:20 → 2S 08-07 18:28 → 2W 08-10 20:54

== ENCOUNTER 2022-01-25 14:20 | Inpatient (IN) ==
[2022-01-25] MEDS ORDERED: SODIUM CHLORIDE 0.9% 1000ML 1,000 ML IV SCH (14:45)
[2022-01-25] MEDS ORDERED: ACETAMINOPHEN 1,000 MG/100 ML VIAL IV STA (14:47)
[2022-01-25] MEDS ORDERED: fentaNYL citrate 100 MCG/2 ML VIAL IV ONE (14:47)
[2022-01-25 16:00] LABS: Basophils # (auto) 0.02 K/uL (0-0.2); Basophils % (auto) 0.3 %; Eosinophils # (auto) 0.33 K/uL (0-0.5); Eosinophils % (auto) 4.4 %; Hemoglobin 9.8 g/dL (12.0-16.0); Immature Granulocytes # (auto) 0.02 K/uL (0.00-0.02); Immature Granulocytes % (auto) 0.3 %; Lymphocytes # (auto) 1.28 K/uL (1.2-3.4); Lymphocytes % (auto) 17.1 %; Mean Corpuscular Hemoglobin 30.1 pg (25-34); Mean Corpuscular Hgb Conc 32.7 g/dL (32-36); Mean Platelet Volume 10.1 fL (7.4-10.4); Monocytes # (auto) 0.44 K/uL (0.11-0.59); Monocytes % (auto) 5.9 %; Platelet Count 264 K/uL (130-400); RDW Coefficient of Variation 17.3 % (11.5-14.5); RDW Standard Deviation 57.6 fL (36.4-46.3); Red Blood Count 3.26 M/uL (4.2-5.4); White Blood Count 7.49 K/uL (4.8-10.8)
[2022-01-25 16:17] LABS: Appearance Urine Clear (Clear); Bilirubin Urine Negative (Negative); Blood Urine Negative (Negative); Color Urine Yellow; Glucose Urine UA Negative (Negative); Ketones Urine Negative (Negative); Leukocyte Esterase Urine Negative (Negative); Nitrite Urine Negative (Negative); Protein Urine Negative (Negative); Specific Gravity Urine 1.006 (1.000-1.030); Urobilinogen Urine Negative (Negative); pH Urine 7.5 (4.5-7.5)
[2022-01-25 16:25] LABS: Albumin Globulin Ratio 1.1 (0.9-2); Albumin Level 3.1 gm/dl (3.4-5.0); Bilirubin,Total 0.8 mg/dl (0.2-1.0); Calcium 7.8 mg/dl (8.5-10.1); Creatinine Clr Calc Pharmacy 47.7 ml/min; Est GFR (African American) 87.2 ml/min; Est GFR (Non-African American) 75.2 ml/min; Globulin 2.7 gm/dl (2.5-4.0); Potassium 3.4 mmol/L (3.5-5.1); Total Protein 5.8 gm/dl (6.0-8.3)
[2022-01-25 16:38] LABS: INR 3.5 (0.9-1.1); Partial Thromboplastin Ratio 1.7; Prothrombin Time 34.5 Seconds (9.0-12.0)
[2022-01-25] MEDS ORDERED: OPTIRAY 320 100ml IV ONE (16:40)
[2022-01-25 16:51] LABS: Partial Thromboplastin Time 45.5 Seconds (21.0-31.0)
--- NOTE | 2022-01-25 17:15 | CT Scan Report ---
CT SCAN OF THE ABDOMEN AND PELVIS WITH IV CONTRAST; CT SCAN OF THE LUMBAR SPINE WITH IV CONTRAST; CT SCAN OF THE BONY PELVIS WITHOUT IV CONTRAST CLINICAL HISTORY: Fall. Trauma. Low back pain. Weakness. COMPARISON STUDY: Abdominal CT dated 09/02/2021. TECHNIQUE: Unenhanced CT of the bony pelvis is performed from the pelvic inlet to the proximal femora . Suboptimally, following the IV administration of 94 cc of Optiray 320, CT scan of the abdomen and pelvis is performed from the lung bases to the proximal femora. CT scan of the lumbar spine is also p erformed from the lower thoracic spine to sacrum. Images for all examinations are reviewed in the axi al, sagittal, and coronal planes. IV contrast was administered without complication. A dose lowering technique was utilized adhering to the principles of ALARA. CT DOSE: 526.49 mGy.cm FINDINGS: Lung bases: The heart is enlarged and without pericardial effusion. Pacemaker leads are noted. A fat- containing Bochdalek hernia is seen at the left lung base. There is a small right pleural effusion wi th dependent atelectasis. No airspace consolidation is seen typical for pneumonia. Liver: The contrast-enhanced liver is normal in size, contour, and attenuation. There is no intrahepa tic biliary ductal dilatation. The hepatic veins and portal veins are patent. Gallbladder: Surgically absent noting clips in the gallbladder fossa. Spleen: Normal in size and attenuation. Pancreas: Moderately atrophic and grossly unremarkable. Adrenal glands: Unremarkable. Kidneys: The contrast enhanced kidneys demonstrate mild cortical atrophy and are without hydronephros is. The kidneys enhance symmetrically. Abdominal vasculature: The abdominal aorta is normal in course and caliber noting moderate to advance d atherosclerotic calcification. Stomach and bowel: There is a small hiatal hernia. There is rectosigmoid fecal retention and moderate to severe constipation. No bowel obstruction is identified. The appendix is not identified and repo rted surgically absent. Peritoneum/retroperitoneum: There is no intraperitoneal free air or abdominal ascites. No retroperito elliot hematoma is identified. Lymphadenopathy: None. Pelvic viscera: The bladder is partially decompressed around a Villalobos catheter. Foci of intraluminal g as are noted. Uterine fibroids are suggested. No adnexal lesion is seen. Skeletal structures: The skeletal structures are osteopenic. No lytic or blastic lesions are seen. Th ere are chronic/healed right-sided rib fractures. Soft tissues: There is body wall edema. BONY PELVIS: There is a minimally angulated fracture at the sacrococcygeal junction seen on sagittal image #[address] No additional fracture is seen involving the bony pelvis. The proximal fe rice appear intact. 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 Sclerotic change is n oted in the sacroiliac joints. Moderate degenerative changes noted in the hips. LUMBAR SPINE: Vertebral body height is maintained throughout the lumbar spine. There is no evidence o f acute fracture or malalignment involving the lumbar spine. There are bilateral pars defects at L5 w ith advanced disc space narrowing, endplate sclerosis, and 9 mm of anterolisthesis at L5-S1. There is left lateral disc bulge at L5-S1. This may impinge on the exiting left L5 nerve root. Alignment is o therwise preserved. Anterior and lateral marginal osteophytes are seen throughout. The transverse and spinous processes are intact. Mild to moderate disc space narrowing is noted at the remaining lumbar levels. There is no CT evidence of large disc herniation or high-grade central canal stenosis. There is fatty atrophy of the paraspinous musculature. IMPRESSION: 1. There is no evidence of solid organ injury in the abdomen or pelvis. 2. There is no evidence of acute fracture or malalignment involving the lumbar spine. 3. There is a minimally angulated fracture at the sacrococcygeal junction which is age indeterminant but new from 09/02/2021. Correlate for point tenderness. 4. No additional fracture is identified involving the hips or bony pelvis. 5. There are bilateral pars defects at L5 with advanced disc space narrowing and grade 1 anterolisthe sis at L5-S1. 6. There is rectosigmoid fecal retention and moderate to severe constipation. No bowel obstruction is seen. 7. 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 8. Cardiomegaly and small right pleural effusion. 9. Additional findings as above. ACT 112: Negative or not required by law. Electronically signed by: Jason Bergeron M.D. 01/25/2022 5:12 PM
[2022-01-25] MEDS ORDERED: POTASSIUM CHLORIDE CRTAB 20 MEQ TABCR PO STA (19:01)
--- NOTE | 2022-01-25 19:12 | History & Physical Report ---
Date of Service January 25, 2022 Assessment & Plan (1) Fall: (2) Fractured coccyx: Plan: Patient is 71-year-old female with PMH persistent atrial fibrillation, on warfarin, s/p DANAE guided DCCV in 10/2018 with recurrent atrial fibrillation s/p cardioversion 05/05/2020, 09/05/2020 with recurrent atrial fibrillation 12/2020, tachybrady syndrome s/p PPM, chronic diastolic CHF, history of gastric bypass, COPD, depression, chronic anemia presented to ER with complaint of mechanical fall onto buttocks 3 days ago with pain to buttocks and left upper leg/hip In ER vitals stable CT L Spine: There is no evidence of acute fracture or malalignment involving the lumbar spine. There are bilateral pars defects at L5 with advanced disc space narrowing and grade 1 anterolisthesis at L5-S1. CT Pelvis: There is a minimally angulated fracture at the sacrococcygeal junction which is age indeterminant but new from 09/02/2021. No additional fracture is identified involving the hips or bony pelvis. CT Abd/pelvis: There is no evidence of solid organ injury in the abdomen or pelv is. 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 In ER given Tylenol, fentanyl Pain control with scheduled Tylenol, oxycodone as needed, lidocaine patch PT/OT eval (3) Hypokalemia: Plan: K: 3.4. Magnesium WNL Replace and monitor (4) Acute on chronic diastolic (congestive) heart failure: Plan: Patient reports 8 pound weight gain in the past 1 to 2 weeks. Noted increased BLE edema past couple of days. Admits to missed diuretic doses and increased fluid intake History echo 07/2021: EF: 60-65%, grade 2 diastolic dysfunction, moderate tricuspid regurgitation No shortness of breath, no hypoxia noted in ER In ER patient received 800 mL NSS Hold further IV fluids Fluid restriction 1800 mL, low-sodium diet, monitor I's and O's, daily weight Lasix 40 mg IV tonight Resume Lasix 80 mg p.o. twice daily (5) A-fib: (6) Supratherapeutic INR: Plan: Chronic atrial fibrillation on warfarin INR: 3.5 Hold hold warfarin and reassess INR tomorrow. Patient had warfarin dose today Continue metoprolol succinate, digoxin (7) Tachy-corin syndrome: Plan: S/P pacemaker (8) COPD (chronic obstructive pulmonary disease): Plan: No acute exacerbation Continue home inhalers (9) Anemia: Plan: Chronic anemia Hgb: 9.8. Baseline in the 10's Monitor H&H DVT Prophylaxis On Coumadin, currently INR supratherapeutic Full code as per discussion with pt Follows with Dr Olvera for routine care Pt was seen and care coordinated with Dr Monsivais. See addendum History of Present Illness Chief Complaint: Fall, buttock pain Primary Care Provider: Russell Olvera DO Patient is 71-year-old female with PMH persistent atrial fibrillation, on warfarin, s/p DANAE guided DCCV in 10/2018 with recurrent atrial fibrillation s/p cardioversion 05/05/2020, 09/05/2020 with recurrent atrial fibrillation 12/2020, tachybrady syndrome s/p PPM, chronic diastolic CHF, history of gastric bypass, COPD, depression, chronic anemia presented to ER with complaint of fall and buttock pain 3 days ago. Patient reports chronic loose stools secondary to history of gastric bypass. She states she tried to get out of bed as she felt like was going to have a bowel movement and ended up having loose bowel movement as she was getting out of bed and slipped in stool causing her to fall on her buttocks. She denies hitting head or any loss of consciousness or chest pain or shortness of breath. Patient states she was unable to get herself up off floor for an hour. She reports she has been walking with a cane prior to fall, and since fall has been really relying on cane secondary to left upper leg and buttock pain. She reports initially low back pain however that has improved. Complains of buttock pain and left posterior upper leg pain, aggravated with movement and walking. She reports she was able to work at [employer] yesterday however had significant pain to left upper leg and buttock. Denies loss of control of bowels or bladder, saddle paresthesias. Reports chronic left knee pain and stiffness and feels this is at baseline. She has noticed increased bilateral lower extremity edema past several days. Patient states has had 8 pound weight gain in the past 1 to 2 weeks. She does admit to missing diuretic dose yesterday and to consuming greater than 64 ounces fluids daily. Reports chronic shortness of breath with exertion at baseline, denies any increase shortness of breath, chest pain, palpitations. Reports chronic rash to legs bilaterally and uses steroid cream. Denies fever/chills, diaphoresis, N/V/D/C, DANIEL, dizziness, syncope, vision changes, neck pain, CP, SOB, orthopnea, cough, sore throat, choking, otalgia, rhinorrhea, abdominal pain, paresthesias, new rashes, urinary symptoms. Allergies Allergy/AdvReac Type Severity Reaction Status Date / Time oxycodone AdvReac Intermediate GI SYMPTOMS Verified 01/25/22 14:59 Home Medications Medication Instructions Recorded Confirmed Type albuterol sulfate 90 mcg/actuation 2 puff INHALATION QID PRN 07/20/18 01/25/22 History aerosol inhaler (Ventolin HFA) cholecalciferol (vitamin D3) 50 2,000 unit PO QAM 07/20/18 01/25/22 History mcg (2,000 unit) capsule (Vitamin D3) fluticasone 250 mcg-salmeterol 50 1 inh INHALATION BID 07/20/18 01/25/22 History mcg/dose blistr powdr for inhalation (Advair Diskus) pediatric multivitamin no.7-folic 1 tab PO QAM 07/20/18 01/25/22 History acid 100 mcg chewable tablet (Flintstones Tab Chew) sertraline 50 mg tablet (Zoloft) 50 mg PO QAM 07/20/18 01/25/22 History warfarin 2.5 mg tablet See Rx Instructions .ROUTE .COMPLEX 07/20/18 01/25/22 History zafirlukast 20 mg tablet (Accolate) 20 mg PO BID 12/25/20 01/25/22 History iron,carbonyl 65 mg-vitamin C 125 1 tab PO BID 02/11/21 01/25/22 History mg tablet,delayed release (Vitron-C) digoxin 125 mcg (0.125 mg) tablet 125 mcg PO QAM 11/05/21 01/25/22 History (Digitek) furosemide 40 mg tablet 80 mg PO BID 11/05/21 01/25/22 History metoprolol succinate 25 mg 25 mg PO DAILY 11/05/21 01/25/22 History tablet,extended release 24 hr magnesium 200 mg tablet 200 mg PO DAILY 01/25/22 01/25/22 History metolazone 2.5 mg tablet 2.5 mg PO UD PRN 01/25/22 01/25/22 History metoprolol succinate 25 mg 12.5 mg PO HS 01/25/22 01/25/22 History tablet,extended release 24 hr ondansetron HCl 4 mg tablet 4 mg PO Q12H PRN 01/25/22 01/25/22 History potassium chloride 10 mEq 10 meq PO DAILY 01/25/22 01/25/22 History capsule,extended release Past Med/Surg History Medical History A-fib S/P DANAE guided DCCV 10/2018. Reverted back to afib 03/2020. External DCCV 04/23/20. 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 Ivey S/P appendectomy S/P small bowel resection Family History Other Cancer Hypertension Lung disease No family history of adverse response to anesthesia Social History Smoking Status: Never smoker Second Hand Exposure: No; Hx Alcohol Use: Yes Alcohol type: beer Alcohol Intake Frequency: Monthly or Less Hx Substance Use: No Preferred Language: Portuguese Communication Ability: Effective Licensed Therapist Required: No Beliefs That Will Affect Care: None Current Living Situation: Spouse current occupational status: employed Feels Safe at Home: Yes Assistive Devices: Cane and Glasses Review of Systems Review of Systems: All systems reviewed & are unremarkable except as noted in HPI & below Physical Exam Physical Exam: General: no distress, WDWN Head: normocephalic, atraumatic Eyes: PERRL, EOM's intact, conjunctiva non-injected, anicteric ENT: normal inspection external ears, nose, mucous membranes moist Neck: supple, trachea midline, non-tender Lungs: clear, no respiratory distress, no wheezing/rhonchi/rales CV: irregularly irregular, no JVD, 2+ pretibial edema Abd: normal BS, soft, non-tender Back: no discoloration, no thoracic or lumbar spinous process tenderness to palpation; Buttocks: +tenderness to palpation midline buttock and left buttock Ext: no cyanosis, no calf tenderness; LLE: +ecchymosis left lateral hip with tenderness to palpation, able to flex and extend left hip and knee with tenderness reproduced to buttock, distal pulses palpable, sensation to light touch intact Neuro: A&O x 3, no focal deficits noted, normal affect Skin: warm, dry, +excoriations bilateral inner thighs Results & Data Results & Data ([facility]) Vital Signs (Past 12 Hours) Vital Signs Temp Pulse Resp BP Pulse Ox 01/25/22 17:25 75 21 110/57 L 100 01/25/22 17:15 74 20 01/25/22 17:00 82 17 100 01/25/22 16:15 71 17 100 01/25/22 16:00 90 20 114/73 96 01/25/22 15:50 69 13 100 01/25/22 15:44 83 14 01/25/22 14:25 36.8 C 86 19 117/79 96 Laboratory Results Short CBC 01/25/22 Range/Units 15:45 WBC 7.49 (4.8-10.8) K/uL Hgb 9.8 L (12.0-16.0) g/dL Hct 30.0 L (37-47) % Plt Count 264 (130-400) K/uL BMP 01/25/22 15:45 Sodium 141 Potassium 3.4 L Chloride 106 Carbon Dioxide 29 BUN 24 H Creatinine 0.80 Glucose 71 Calcium 7.8 L Liver Function 01/25/22 Range/Units 15:45 Total Bilirubin 0.8 (0.2-1.0) mg/dl AST 22 (13-39) U/L ALT 29 (7-52) U/L Alkaline Phosphatase 115 H (34-104) U/L Albumin 3.1 L (3.4-5.0) gm/dl Urine 01/25/22 Range/Units 15:45 Urine Color Yellow Urine Appearance Clear (Clear) Urine pH 7.5 (4.5-7.5) Ur Specific [place] 1.006 (1.000-1.030) Urine Protein Negative (Negative) Urine Glucose (UA) Negative (Negative) Diagnostic Findings Abdomen/Pelvis CT 01/25/22 14:43 CT SCAN OF THE ABDOMEN AND PELVIS WITH IV CONTRAST; CT SCAN OF THE LUMBAR SPINE WITH IV CONTRAST; CT SCAN OF THE BONY PELVIS WITHOUT IV CONTRAST CLINICAL HISTORY: Fall. Trauma. Low back pain. Weakness. COMPARISON STUDY: Abdominal CT dated 09/02/2021. TECHNIQUE: Unenhanced CT of the bony pelvis is performed from the pelvic inlet to the proximal femora. Suboptimally, following the IV administration of 94 cc of Optiray 320, CT scan of the abdomen and pelvis is performed from the lung bases to the proximal femora. CT scan of the lumbar spine is also performed from the lower thoracic spine to sacrum. Images for all examinations are reviewed in the axial, sagittal, and coronal planes. IV contrast was administered without complication. A dose lowering technique was utilized adhering to the principles of ALARA. CT DOSE: 526.49 mGy.cm FINDINGS: Lung bases: The heart is enlarged and without pericardial effusion. Pacemaker leads are noted. A fat-containing Bochdalek hernia is seen at the left lung base. There is a small right pleural effusion with dependent atelectasis. No airspace consolidation is seen typical for pneumonia. Liver: The contrast-enhanced liver is normal in size, contour, and attenuation. There is no intrahepatic biliary ductal dilatation. The hepatic veins and portal veins are patent. Gallbladder: Surgically absent noting clips in the gallbladder fossa. Spleen: Normal in size and attenuation. Pancreas: Moderately atrophic and grossly unremarkable. Adrenal glands: Unremarkable. Kidneys: The contrast enhanced kidneys demonstrate mild cortical atrophy and are without hydronephrosis. The kidneys enhance symmetrically. Abdominal vasculature: The abdominal aorta is normal in course and caliber noting moderate to advanced atherosclerotic calcification. Stomach and bowel: There is a small hiatal hernia. There is rectosigmoid fecal retention and moderate to severe constipation. No bowel obstruction is identified. The appendix is not identified and reported surgically absent. Peritoneum/retroperitoneum: There is no intraperitoneal free air or abdominal ascites. No retroperitoneal hematoma is identified. Lymphadenopathy: None. Pelvic viscera: The bladder is partially decompressed around a Villalobos catheter. Foci of intraluminal gas are noted. Uterine fibroids are suggested. No adnexal lesion is seen. Skeletal structures: The skeletal structures are osteopenic. No lytic or blastic lesions are seen. There are chronic/healed right-sided rib fractures. Soft tissues: There is body wall edema. BONY PELVIS: There is a minimally angulated fracture at the sacrococcygeal junction seen on sagittal image #[address] No additional fracture is seen involving the bony pelvis. The proximal femora appear intact. 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 Sclerotic change is noted in the sacroiliac joints. Moderate degenerative changes noted in the hips. LUMBAR SPINE: Vertebral body height is maintained throughout the lumbar spine. There is no evidence of acute fracture or malalignment involving the lumbar spine. There are bilateral pars defects at L5 with advanced disc space narrowing, endplate sclerosis, and 9 mm of anterolisthesis at L5-S1. There is left lateral disc bulge at L5-S1. This may impinge on the exiting left L5 nerve root. Alignment is otherwise preserved. Anterior and lateral marginal osteophytes are seen throughout. The transverse and spinous processes are intact. Mild to moderate disc space narrowing is noted at the remaining lumbar levels. There is no CT evidence of large disc herniation or high-grade central canal stenosis. There is fatty atrophy of the paraspinous musculature. IMPRESSION: 1. There is no evidence of solid organ injury in the abdomen or pelvis. 2. There is no evidence of acute fracture or malalignment involving the lumbar spine. 3. There is a minimally angulated fracture at the sacrococcygeal junction which is age indeterminant but new from 09/02/2021. Correlate for point tenderness. 4. No additional fracture is identified involving the hips or bony pelvis. 5. There are bilateral pars defects at L5 with advanced disc space narrowing and grade 1 anterolisthesis at L5-S1. 6. There is rectosigmoid fecal retention and moderate to severe constipation. No bowel obstruction is seen. 7. 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 8. Cardiomegaly and small right pleural effusion. 9. Additional findings as above. ACT 112: Negative or not required by law. Electronically signed by: Jason Bergeron M.D. 01/25/2022 5:[address] 01/25/22 14:43 CT SCAN OF THE ABDOMEN AND PELVIS WITH IV CONTRAST; CT SCAN OF THE LUMBAR SPINE WITH IV CONTRAST; CT SCAN OF THE BONY PELVIS WITHOUT IV CONTRAST CLINICAL HISTORY: Fall. Trauma. Low back pain. Weakness. COMPARISON STUDY: Abdominal CT dated 09/02/2021. TECHNIQUE: Unenhanced CT of the bony pelvis is performed from the pelvic inlet to the proximal femora. Suboptimally, following the IV administration of 94 cc of Optiray 320, CT scan of the abdomen and pelvis is performed from the lung bases to the proximal femora. CT scan of the lumbar spine is also performed from the lower thoracic spine to sacrum. Images for all examinations are reviewed in the axial, sagittal, and coronal planes. IV contrast was administered without complication. A dose lowering technique was utilized adhering to the principles of ALARA. CT DOSE: 526.49 mGy.cm FINDINGS: Lung bases: The heart is enlarged and without pericardial effusion. Pacemaker leads are noted. A fat-containing Bochdalek hernia is seen at the left lung base. There is a small right pleural effusion with dependent atelectasis. No airspace consolidation is seen typical for pneumonia. Liver: The contrast-enhanced liver is normal in size, contour, and attenuation. There is no intrahepatic biliary ductal dilatation. The hepatic veins and portal veins are patent. Gallbladder: Surgically absent noting clips in the gallbladder fossa. Spleen: Normal in size and attenuation. Pancreas: Moderately atrophic and grossly unremarkable. Adrenal glands: Unremarkable. Kidneys: The contrast enhanced kidneys demonstrate mild cortical atrophy and are without hydronephrosis. The kidneys enhance symmetrically. Abdominal vasculature: The abdominal aorta is normal in course and caliber noting moderate to advanced atherosclerotic calcification. Stomach and bowel: There is a small hiatal hernia. There is rectosigmoid fecal retention and moderate to severe constipation. No bowel obstruction is identified. The appendix is not identified and reported surgically absent. Peritoneum/retroperitoneum: There is no intraperitoneal free air or abdominal ascites. No retroperitoneal hematoma is identified. Lymphadenopathy: None. Pelvic viscera: The bladder is partially decompressed around a Villalobos catheter. Foci of intraluminal gas are noted. Uterine fibroids are suggested. No adnexal lesion is seen. Skeletal structures: The skeletal structures are osteopenic. No lytic or blastic lesions are seen. There are chronic/healed right-sided rib fractures. Soft tissues: There is body wall edema. BONY PELVIS: There is a minimally angulated fracture at the sacrococcygeal junction seen on sagittal image #[address] No additional fracture is seen involving the bony pelvis. The proximal femora appear intact. 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 Sclerotic change is noted in the sacroiliac joints. Moderate degenerative changes noted in the hips. LUMBAR SPINE: Vertebral body height is maintained throughout the lumbar spine. There is no evidence of acute fracture or malalignment involving the lumbar spine. There are bilateral pars defects at L5 with advanced disc space narrowing, endplate sclerosis, and 9 mm of anterolisthesis at L5-S1. There is left lateral disc bulge at L5-S1. This may impinge on the exiting left L5 nerve root. Alignment is otherwise preserved. Anterior and lateral marginal osteophytes are seen throughout. The transverse and spinous processes are intact. Mild to moderate disc space narrowing is noted at the remaining lumbar levels. There is no CT evidence of large disc herniation or high-grade central canal stenosis. There is fatty atrophy of the paraspinous musculature. IMPRESSION: 1. There is no evidence of solid organ injury in the abdomen or pelvis. 2. There is no evidence of acute fracture or malalignment involving the lumbar spine. 3. There is a minimally angulated fracture at the sacrococcygeal junction which is age indeterminant but new from 09/02/2021. Correlate for point tenderness. 4. No additional fracture is identified involving the hips or bony pelvis. 5. There are bilateral pars defects at L5 with advanced disc space narrowing and grade 1 anterolisthesis at L5-S1. 6. There is rectosigmoid fecal retention and moderate to severe constipation. No bowel obstruction is seen. 7. 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 8. Cardiomegaly and small right pleural effusion. 9. Additional findings as above. ACT 112: Negative or not required by law. Electronically signed by: Jason Bergeron M.D. 01/25/2022 5:[address] 01/25/22 14:46 CT SCAN OF THE ABDOMEN AND PELVIS WITH IV CONTRAST; CT SCAN OF THE LUMBAR SPINE WITH IV CONTRAST; CT SCAN OF THE BONY PELVIS WITHOUT IV CONTRAST CLINICAL HISTORY: Fall. Trauma. Low back pain. Weakness. COMPARISON STUDY: Abdominal CT dated 09/02/2021. TECHNIQUE: Unenhanced CT of the bony pelvis is performed from the pelvic inlet to the proximal femora. Suboptimally, following the IV administration of 94 cc of Optiray 320, CT scan of the abdomen and pelvis is performed from the lung bases to the proximal femora. CT scan of the lumbar spine is also performed from the lower thoracic spine to sacrum. Images for all examinations are reviewed in the axial, sagittal, and coronal planes. IV contrast was administered without complication. A dose lowering technique was utilized adhering to the principles of ALARA. CT DOSE: 526.49 mGy.cm FINDINGS: Lung bases: The heart is enlarged and without pericardial effusion. Pacemaker leads are noted. A fat-containing Bochdalek hernia is seen at the left lung base. There is a small right pleural effusion with dependent atelectasis. No airspace consolidation is seen typical for pneumonia. Liver: The contrast-enhanced liver is normal in size, contour, and attenuation. There is no intrahepatic biliary ductal dilatation. The hepatic veins and portal veins are patent. Gallbladder: Surgically absent noting clips in the gallbladder fossa. Spleen: Normal in size and attenuation. Pancreas: Moderately atrophic and grossly unremarkable. Adrenal glands: Unremarkable. Kidneys: The contrast enhanced kidneys demonstrate mild cortical atrophy and are without hydronephrosis. The kidneys enhance symmetrically. Abdominal vasculature: The abdominal aorta is normal in course and caliber noting moderate to advanced atherosclerotic calcification. Stomach and bowel: There is a small hiatal hernia. There is rectosigmoid fecal retention and moderate to severe constipation. No bowel obstruction is identified. The appendix is not identified and reported surgically absent. Peritoneum/retroperitoneum: There is no intraperitoneal free air or abdominal ascites. No retroperitoneal hematoma is identified. Lymphadenopathy: None. Pelvic viscera: The bladder is partially decompressed around a Villalobos catheter. Foci of intraluminal gas are noted. Uterine fibroids are suggested. No adnexal lesion is seen. Skeletal structures: The skeletal structures are osteopenic. No lytic or blastic lesions are seen. There are chronic/healed right-sided rib fractures. Soft tissues: There is body wall edema. BONY PELVIS: There is a minimally angulated fracture at the sacrococcygeal junction seen on sagittal image #[address] No additional fracture is seen involving the bony pelvis. The proximal femora appear intact. 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 Sclerotic change is noted in the sacroiliac joints. Moderate degenerative changes noted in the hips. LUMBAR SPINE: Vertebral body height is maintained throughout the lumbar spine. There is no evidence of acute fracture or malalignment involving the lumbar spine. There are bilateral pars defects at L5 with advanced disc space narrowing, endplate sclerosis, and 9 mm of anterolisthesis at L5-S1. There is left lateral disc bulge at L5-S1. This may impinge on the exiting left L5 nerve root. Alignment is otherwise preserved. Anterior and lateral marginal osteophytes are seen throughout. The transverse and spinous processes are intact. Mild to moderate disc space narrowing is noted at the remaining lumbar levels. There is no CT evidence of large disc herniation or high-grade central canal stenosis. There is fatty atrophy of the paraspinous musculature. IMPRESSION: 1. There is no evidence of solid organ injury in the abdomen or pelvis. 2. There is no evidence of acute fracture or malalignment involving the lumbar spine. 3. There is a minimally angulated fracture at the sacrococcygeal junction which is age indeterminant but new from 09/02/2021. Correlate for point tenderness. 4. No additional fracture is identified involving the hips or bony pelvis. 5. There are bilateral pars defects at L5 with advanced disc space narrowing and grade 1 anterolisthesis at L5-S1. 6. There is rectosigmoid fecal retention and moderate to severe constipation. No bowel obstruction is seen. 7. 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 8. Cardiomegaly and small right pleural effusion. 9. Additional findings as above. ACT 112: Negative or not required by law. Electronically signed by: Jason Bergeron M.D. 01/25/2022 5:12 PM Supervising Physician Co-Signing Physician Notes I interviewed and examined the patient at bedside. I have reviewed the chart and discussed the case with Laquita LEONG In summary, this is a 71 year old female with h/o persistent A fib on coumadin, diastolic CHF on lasix, h/o gastric bypass, s/p pacemaker for tachybrady syndrome who presented to the ED for but tock pain after sustaining a mechanical fall on Tuesday 3 days back landing on her buttock, but there was no syncope. She went to work at [employer] yesterday but had worsening pain for which she came to ED today. In the ED, she was afebrile hemodynamically stable. Pain improved after the pain medication. She looks much older than her age. AAO. Poor dentition. Chest clear, irregularly irregular, benign abdomen. Left thigh with small ecchymoses. On compression stocking in LE. Labs unremarkable, CT with minimally angulated fracture at sacrococcygeal junction, age indeterminate but no other acute fractures. Will admit for pain management, PT/OT evaluation. Consider ortho eval if needed. Rest per the note above.
[2022-01-25] MEDS ORDERED: FUROSEMIDE 40 MG/4 ML VIAL IV ONE (19:15)
[2022-01-25 20:15] LABS: Influenza A virus by PCR Negative (Neg); Influenza B virus by PCR Negative (Neg); RSV by PCR Negative (Neg); SARS CoV2 RNA(COVID-19) InHosp NEGATIVE (Negative)
[2022-01-25] MEDS ORDERED: POTASSIUM CHLORIDE CRTAB 20 MEQ TABCR PO ONE (21:00)
[2022-01-25] MEDS ORDERED: oxyCODONE HCL IR 5 MG TAB (IMMEDIATE RELEASE) PO PRN (21:46)
[2022-01-25] MEDS ORDERED: MAGNESIUM HYDROXIDE SUSP 30 ML UDC PO PRN (21:46)
[2022-01-25] MEDS ORDERED: POLYETHYLENE (MIRALAX) 17 GM PACK PO PRN (21:46)
[2022-01-25] MEDS ORDERED: ALBUTEROL HFA 8 GM INHALER INH PRN (21:46)
[2022-01-25] MEDS ORDERED: ONDANSETRON INJ 2 MG/ML 2 ML VIAL IV PRN (21:46)
--- NOTE | 2022-01-25 23:11 | Emergency Department Note ---
Impression & Plan Closed sacral fracture, A-fib, Anticoagulated ED Provider Note CHIEF COMPLAINT: Left hip/buttocks pain, fall 3 days ago HISTORY OF PRESENT ILLNESS: This 71-year-old female patient presents to the emergency department complaints of left buttock/hip pain that radiates down the leg after a fall 3 days ago. The patient states she slid off of the edge of the bed onto the floor, being careful to protect her head. The patient is anticoagulated with Coumadin due to history of atrial fibrillation. She states she has a pacemaker in place which she did not lose consciousness and denies hitting her head. She states it took her the better part of an hour to get up off of the floor. She has been walking, but states she needs a cane and "drags the left foot." Patient denies any urinary incontinence or weakness, but states it is due to pain. REVIEW OF SYSTEMS: A review of systems was performed with positives and pertinent negatives listed in the history of present illness. 10 systems were reviewed and are otherwise negative. ALLERGIES: see below MEDICATIONS: see below PMH: see below SOCIAL HISTORY: see below DDx: Musculoskeletal, disc herniation, fracture, metastatic disease, cord compression, discitis, sciatica, cauda equina, infection, aortic disease, renal colic, gastrointestinal, as well as other pathologies. PHYSICAL EXAM: Vital signs reviewed. General: Generally well-appearing 71-year-old female, in some discomfort, grabbing the left hip. HEENT: No scleral icterus, PERRLA, neck supple. Atraumatic. Hard of hearing, poor dentition with broken teeth. Cardiovascular: Regular rate and rhythm, no extra sounds. Pulmonary: Clear to auscultation bilaterally, normal work of breathing. Abdomen: Soft, nontender, nondistended, positive bowel sounds. Musculoskeletal: Atraumatic, no peripheral edema. Tender to palpation over posterior L hip/buttock. Tender over lower lumbar spine. No step off or deformity. Positive discomfort with left straight leg raise. Neurologic: Patient awake alert and oriented x 3, speech is clear Skin: Warm, dry, no rash EMERGENCY DEPARTMENT COURSE/MDM: This patient was evaluated and appeared to be in no significant distress. IV access was obtained and laboratory work was drawn. Patient was placed on the elderly caregiver and noted to be in an atrial fibrillation. Patient was medicated with IV Tylenol, IV fentanyl and Zofran. CT imaging of the abdomen and pelvis with lumbar spine and bony pelvis CT reveals a sacral fracture. This is likely the etiology of the patient's pain, particularly with ambulation. There is no evidence of retroperitoneal hematoma. Patient be able to return home due to her difficulty in staying safe with weightbearing and self-care. She will be evaluated by the hospitalist for PT/OT and potential rehab services. Patient and are aware of this plan and agreed. MONITORING: An order for cardiac monitoring was placed and the patient is noted to be in a atrial fibrillation with occasional PVC at 79 beats per minute. RADIOLOGY: below EKG: Atrial fibrillation with occasional ventricularly paced complexes at 87 bpm, left axis deviation. Low voltage QRS. Previous septal infarct. QTC of 385. DISPOSITION:admit Past Med/Surg History Medical History A-fib S/P DANAE guided DCCV 10/2018. Reverted back to afib 03/2020. External DCCV 04/23/20. 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 Ivey S/P appendectomy S/P small bowel resection Family History Other Cancer Hypertension Lung disease No family history of adverse response to anesthesia Social History Smoking Status: Never smoker Second Hand Exposure: No; Hx Alcohol Use: No Hx Substance Use: No Preferred Language: Mongolian Communication Ability: Effective Meter And Service Line Inspector Required: No Beliefs That Will Affect Care: None marital status: Current Living Situation: Spouse Current Living Situation Comment: lives in first floor apartment with has one step to enter current occupational status: employed Feels Safe at Home: Yes Safety Concerns: Feels Safe At This Time Assistive Devices: Cane and Walker Allergies Allergies Allergy/AdvReac Type Severity Reaction Status Date / Time oxycodone AdvReac Intermediate GI SYMPTOMS Verified 01/25/22 14:59 Home Meds Home Medications Medication Instructions Recorded Confirmed albuterol sulfate 90 mcg/actuation 2 puff INHALATION QID PRN 07/20/18 01/25/22 aerosol inhaler (Ventolin HFA) cholecalciferol (vitamin D3) 50 2,000 unit PO QAM 07/20/18 01/25/22 mcg (2,000 unit) capsule (Vitamin D3) fluticasone 250 mcg-salmeterol 50 1 inh INHALATION BID 07/20/18 01/25/22 mcg/dose blistr powdr for inhalation (Advair Diskus) pediatric multivitamin no.7-folic 1 tab PO QAM 07/20/18 01/25/22 acid 100 mcg chewable tablet (Flintstones Tab Chew) sertraline 50 mg tablet (Zoloft) 50 mg PO QAM 07/20/18 01/25/22 warfarin 2.5 mg tablet See Rx Instructions .ROUTE .COMPLEX 07/20/18 01/25/22 zafirlukast 20 mg tablet (Accolate) 20 mg PO BID 12/25/20 01/25/22 iron,carbonyl 65 mg-vitamin C 125 1 tab PO BID 02/11/21 01/25/22 mg tablet,delayed release (Vitron-C) digoxin 125 mcg (0.125 mg) tablet 125 mcg PO QAM 11/05/21 01/25/22 (Digitek) furosemide 40 mg tablet 80 mg PO BID 11/05/21 01/25/22 metoprolol succinate 25 mg 25 mg PO DAILY 11/05/21 01/25/22 tablet,extended release 24 hr magnesium 200 mg tablet 200 mg PO DAILY 01/25/22 01/25/22 metolazone 2.5 mg tablet 2.5 mg PO UD PRN 01/25/22 01/25/22 metoprolol succinate 25 mg 12.5 mg PO HS 01/25/22 01/25/22 tablet,extended release 24 hr ondansetron HCl 4 mg tablet 4 mg PO Q12H PRN 01/25/22 01/25/22 potassium chloride 10 mEq 10 meq PO DAILY 01/25/22 01/25/22 capsule,extended release Results & Data (ED) Vital Signs Vital Signs - 24 hr 01/25/22 14:25 01/25/22 15:44 01/25/22 15:50 Temperature 36.8 C Temperature Source Oral Pulse Rate 86 83 69 Pulse Rhythm Regular Pulse Strength Normal Respiratory Rate 19 14 13 Respiratory Effort / Characteristics Non-Labored Spontaneous Respiratory Depth Normal Respiratory Pattern Regular Blood Pressure 117/79 Blood Pressure Mean 91 Blood Pressure Position Lying Pulse Oximetry 96 100 Oxygen Delivery Method Room Air Room Air Sepsis Recent Fever Within 48 Hours No Sepsis New/Unexplained Change in Mental Status N/A Sepsis Action Taken by Nursing No Action Required 01/25/22 16:00 01/25/22 16:15 01/25/22 17:00 Temperature Temperature Source Pulse Rate 90 71 82 Pulse Rhythm Pulse Strength Respiratory Rate 20 17 17 Respiratory Effort / Characteristics Respiratory Depth Respiratory Pattern Blood Pressure 114/73 Blood Pressure Mean 86 Blood Pressure Position Pulse Oximetry 96 100 100 Oxygen Delivery Method Room Air Room Air Room Air Sepsis Recent Fever Within 48 Hours Sepsis New/Unexplained Change in Mental Status Sepsis Action Taken by Nursing 01/25/22 17:15 01/25/22 17:25 01/25/22 17:30 Temperature Temperature Source Pulse Rate 74 75 75 Pulse Rhythm Pulse Strength Respiratory Rate 20 21 16 Respiratory Effort / Characteristics Respiratory Depth Respiratory Pattern Blood Pressure 110/57 L Blood Pressure Mean 74 Blood Pressure Position Pulse Oximetry 100 99 Oxygen Delivery Method Room Air Room Air Sepsis Recent Fever Within 48 Hours Sepsis New/Unexplained Change in Mental Status Sepsis Action Taken by Nursing 01/25/22 17:45 01/25/22 18:00 01/25/22 18:02 Temperature Temperature Source Pulse Rate 87 79 71 Pulse Rhythm Pulse Strength Respiratory Rate 17 17 12 Respiratory Effort / Characteristics Respiratory Depth Respiratory Pattern Blood Pressure 133/69 Blood Pressure Mean 90 Blood Pressure Position Pulse Oximetry 99 98 93 Oxygen Delivery Method Room Air Room Air Room Air Sepsis Recent Fever Within 48 Hours Sepsis New/Unexplained Change in Mental Status Sepsis Action Taken by Nursing 01/25/22 18:15 Temperature Temperature Source Pulse Rate 71 Pulse Rhythm Pulse Strength Respiratory Rate 17 Respiratory Effort / Characteristics Respiratory Depth Respiratory Pattern Blood Pressure Blood Pressure Mean Blood Pressure Position Pulse Oximetry 96 Oxygen Delivery Method Room Air Sepsis Recent Fever Within 48 Hours Sepsis New/Unexplained Change in Mental Status Sepsis Action Taken by Skilled Nursing Medications Current Medication List: was personally reviewed by me Laboratory Data Attestation: I reviewed the patient's lab results. Result diagrams: 01/29/22 06:59 01/29/22 06:59 Lab Results 01/25/22 01/25/22 01/25/22 Range/Units 15:45 15:45 15:45 WBC 7.49 (4.8-10.8) K/uL RBC 3.26 L (4.2-5.4) M/uL Hgb 9.8 L (12.0-16.0) g/dL Hct 30.0 L (37-47) % MCV 92.0 (80-100) fL MCH 30.1 (25-34) pg MCHC 32.7 (32-36) g/dL RDW Std Deviation 57.6 H (36.4-46.3) fL RDW Coeff of Saman 17.3 H (11.5-14.5) % Plt Count 264 (130-400) K/uL MPV 10.1 (7.4-10.4) fL Immature Gran % (Auto) 0.3 % Neut % (Auto) 72.0 % Lymph % (Auto) 17.1 % [place] % (Auto) 5.9 % Eos % (Auto) 4.4 % Baso % (Auto) 0.3 % Neut # (Auto) 5.40 (1.4-6.5) K/uL Lymph # (Auto) 1.28 (1.2-3.4) K/uL [place] # (Auto) 0.44 (0.11-0.59) K/uL Eos # (Auto) 0.33 (0-0.5) K/uL Baso # (Auto) 0.02 (0-0.2) K/uL Immature Gran # (Auto) 0.02 (0.00-0.02) K/uL PT 34.5 H (9.0-12.0) Seconds INR 3.5 H (0.9-1.1) APTT 45.5 H* (21.0-31.0) Seconds PTT Ratio 1.7 Sodium 141 (136-145) mmol/L Potassium 3.4 L (3.5-5.1) mmol/L Chloride 106 (98-107) mmol/L Carbon Dioxide 29 (21-32) mmol/L Anion Gap 6 (3-11) BUN 24 H (6-23) mg/dl Creatinine 0.80 (0.6-1.2) mg/dl Est Cr Clr Drug Dosing 47.7 ml/min Est GFR ( Amer) 87.2 ml/min Est GFR (Non-Af Amer) 75.2 ml/min BUN/Creatinine Ratio 30.0 H (10-20) Glucose 71 (70-99(Fasting)) mg/dl Calcium 7.8 L (8.5-10.1) mg/dl Magnesium (1.7-2.4) mg/dl Total Bilirubin 0.8 (0.2-1.0) mg/dl AST 22 (13-39) U/L ALT 29 (7-52) U/L Alkaline Phosphatase 115 H (34-104) U/L Total Protein 5.8 L (6.0-8.3) gm/dl Albumin 3.1 L (3.4-5.0) gm/dl Globulin 2.7 (2.5-4.0) gm/dl Albumin/Globulin Ratio 1.1 (0.9-2) Urine Color Urine Appearance (Clear) Urine pH (4.5-7.5) Ur Specific [place] (1.000-1.030) Urine Protein (Negative) Urine Glucose (UA) (Negative) Urine Ketones (Negative) Urine Blood (Negative) Urine Nitrite (Negative) Urine Bilirubin (Negative) Urine Urobilinogen (Negative) Ur Leukocyte Esterase (Negative) SARS-CoV-2 (PCR) (Negative) Influenza Type A (PCR) (Neg) Influenza Type B (PCR) (Neg) RSV (RT-PCR) (Neg) 01/25/22 01/25/22 01/25/22 Range/Units 15:45 15:45 19:11 WBC (4.8-10.8) K/uL RBC (4.2-5.4) M/uL Hgb (12.0-16.0) g/dL Hct (37-47) % MCV (80-100) fL MCH (25-34) pg MCHC (32-36) g/dL RDW Std Deviation (36.4-46.3) fL RDW Coeff of Saman (11.5-14.5) % Plt Count (130-400) K/uL MPV (7.4-10.4) fL Immature Gran % (Auto) % Neut % (Auto) % Lymph % (Auto) % [place] % (Auto) % Eos % (Auto) % Baso % (Auto) % Neut # (Auto) (1.4-6.5) K/uL Lymph # (Auto) (1.2-3.4) K/uL [place] # (Auto) (0.11-0.59) K/uL Eos # (Auto) (0-0.5) K/uL Baso # (Auto) (0-0.2) K/uL Immature Gran # (Auto) (0.00-0.02) K/uL PT (9.0-12.0) Seconds INR (0.9-1.1) APTT (21.0-31.0) Seconds PTT Ratio Sodium (136-145) mmol/L Potassium (3.5-5.1) mmol/L Chloride (98-107) mmol/L Carbon Dioxide (21-32) mmol/L Anion Gap (3-11) BUN (6-23) mg/dl Creatinine (0.6-1.2) mg/dl Est Cr Clr Drug Dosing ml/min Est GFR ( Amer) ml/min Est GFR (Non-Af Amer) ml/min BUN/Creatinine Ratio (10-20) Glucose (70-99(Fasting)) mg/dl Calcium (8.5-10.1) mg/dl Magnesium 2.2 (1.7-2.4) mg/dl Total Bilirubin (0.2-1.0) mg/dl AST (13-39) U/L ALT (7-52) U/L Alkaline Phosphatase (34-104) U/L Total Protein (6.0-8.3) gm/dl Albumin (3.4-5.0) gm/dl Globulin (2.5-4.0) gm/dl Albumin/Globulin Ratio (0.9-2) Urine Color Yellow Urine Appearance Clear (Clear) Urine pH 7.5 (4.5-7.5) Ur Specific [place] 1.006 (1.000-1.030) Urine Protein Negative (Negative) Urine Glucose (UA) Negative (Negative) Urine Ketones Negative (Negative) Urine Blood Negative (Negative) Urine Nitrite Negative (Negative) Urine Bilirubin Negative (Negative) Urine Urobilinogen Negative (Negative) Ur Leukocyte Esterase Negative (Negative) SARS-CoV-2 (PCR) NEGATIVE (Negative) Influenza Type A (PCR) Negative (Neg) Influenza Type B (PCR) Negative (Neg) RSV (RT-PCR) Negative (Neg) 01/26/22 01/26/22 01/26/22 Range/Units 05:37 05:37 05:37 WBC 4.94 (4.8-10.8) K/uL RBC 3.07 L (4.2-5.4) M/uL Hgb 9.3 L (12.0-16.0) g/dL Hct 28.6 L (37-47) % MCV 93.2 (80-100) fL MCH 30.3 (25-34) pg MCHC 32.5 (32-36) g/dL RDW Std Deviation 60.0 H (36.4-46.3) fL RDW Coeff of Saman 17.8 H (11.5-14.5) % Plt Count 235 (130-400) K/uL MPV 10.0 (7.4-10.4) fL Immature Gran % (Auto) % Neut % (Auto) % Lymph % (Auto) % [place] % (Auto) % Eos % (Auto) % Baso % (Auto) % Neut # (Auto) (1.4-6.5) K/uL Lymph # (Auto) (1.2-3.4) K/uL [place] # (Auto) (0.11-0.59) K/uL Eos # (Auto) (0-0.5) K/uL Baso # (Auto) (0-0.2) K/uL Immature Gran # (Auto) (0.00-0.02) K/uL PT 27.6 H (9.0-12.0) Seconds INR 2.7 H (0.9-1.1) APTT (21.0-31.0) Seconds PTT Ratio Sodium 141 (136-145) mmol/L Potassium 3.6 (3.5-5.1) mmol/L Chloride 109 H (98-107) mmol/L Carbon Dioxide 27 (21-32) mmol/L Anion Gap 5 (3-11) BUN 19 (6-23) mg/dl Creatinine 0.66 (0.6-1.2) mg/dl Est Cr Clr Drug Dosing 57.8 ml/min Est GFR ( Amer) 104.5 ml/min Est GFR (Non-Af Amer) 90.1 ml/min BUN/Creatinine Ratio 28.8 H (10-20) Glucose 62 L (70-99(Fasting)) mg/dl Calcium 7.2 L (8.5-10.1) mg/dl Magnesium (1.7-2.4) mg/dl Total Bilirubin (0.2-1.0) mg/dl AST (13-39) U/L ALT (7-52) U/L Alkaline Phosphatase (34-104) U/L Total Protein (6.0-8.3) gm/dl Albumin (3.4-5.0) gm/dl Globulin (2.5-4.0) gm/dl Albumin/Globulin Ratio (0.9-2) Urine Color Urine Appearance (Clear) Urine pH (4.5-7.5) Ur Specific [place] (1.000-1.030) Urine Protein (Negative) Urine Glucose (UA) (Negative) Urine Ketones (Negative) Urine Blood (Negative) Urine Nitrite (Negative) Urine Bilirubin (Negative) Urine Urobilinogen (Negative) Ur Leukocyte Esterase (Negative) SARS-CoV-2 (PCR) (Negative) Influenza Type A (PCR) (Neg) Influenza Type B (PCR) (Neg) RSV (RT-PCR) (Neg) 01/27/22 01/27/22 01/27/22 Range/Units 05:59 05:59 05:59 WBC 6.44 (4.8-10.8) K/uL RBC 2.97 L (4.2-5.4) M/uL Hgb 9.2 L (12.0-16.0) g/dL Hct 27.3 L (37-47) % MCV 91.9 (80-100) fL MCH 31.0 (25-34) pg MCHC 33.7 (32-36) g/dL RDW Std Deviation 58.0 H (36.4-46.3) fL RDW Coeff of Saman 17.3 H (11.5-14.5) % Plt Count 232 (130-400) K/uL MPV 9.7 (7.4-10.4) fL Immature Gran % (Auto) % Neut % (Auto) % Lymph % (Auto) % [place] % (Auto) % Eos % (Auto) % Baso % (Auto) % Neut # (Auto) (1.4-6.5) K/uL Lymph # (Auto) (1.2-3.4) K/uL [place] # (Auto) (0.11-0.59) K/uL Eos # (Auto) (0-0.5) K/uL Baso # (Auto) (0-0.2) K/uL Immature Gran # (Auto) (0.00-0.02) K/uL PT 30.5 H (9.0-12.0) Seconds INR 3.0 H (0.9-1.1) APTT (21.0-31.0) Seconds PTT Ratio Sodium 140 (136-145) mmol/L Potassium 4.4 D (3.5-5.1) mmol/L Chloride 110 H (98-107) mmol/L Carbon Dioxide 27 (21-32) mmol/L Anion Gap 3 (3-11) BUN 24 H (6-23) mg/dl Creatinine 0.79 (0.6-1.2) mg/dl Est Cr Clr Drug Dosing 52.6 ml/min Est GFR ( Amer) 88.5 ml/min Est GFR (Non-Af Amer) 76.4 ml/min BUN/Creatinine Ratio 30.4 H (10-20) Glucose 70 (70-99(Fasting)) mg/dl Calcium 7.2 L (8.5-10.1) mg/dl Magnesium 2.0 (1.7-2.4) mg/dl Total Bilirubin (0.2-1.0) mg/dl AST (13-39) U/L ALT (7-52) U/L Alkaline Phosphatase (34-104) U/L Total Protein (6.0-8.3) gm/dl Albumin (3.4-5.0) gm/dl Globulin (2.5-4.0) gm/dl Albumin/Globulin Ratio (0.9-2) Urine Color Urine Appearance (Clear) Urine pH (4.5-7.5) Ur Specific [place] (1.000-1.030) Urine Protein (Negative) Urine Glucose (UA) (Negative) Urine Ketones (Negative) Urine Blood (Negative) Urine Nitrite (Negative) Urine Bilirubin (Negative) Urine Urobilinogen (Negative) Ur Leukocyte Esterase (Negative) SARS-CoV-2 (PCR) (Negative) Influenza Type A (PCR) (Neg) Influenza Type B (PCR) (Neg) RSV (RT-PCR) (Neg) Administered Medications Acetaminophen (Acetaminophen 500 Mg Tab) 1,000 mg PO Q8H ISHAN Stop: 02/25/22 00:00 Last Admin: 01/29/22 15:37 Dose: 1,000 mg Documented by: [id number] Admin: 01/29/22 08:19 Dose: 1,000 mg Documented by: [id number] Admin: 01/29/22 00:12 Dose: 1,000 mg Documented by: [id number] Admin: 01/28/22 16:35 Dose: 1,000 mg Documented by: [id number] Admin: 01/28/22 09:52 Dose: 1,000 mg Documented by: [id number] Admin: 01/28/22 00:00 Dose: 1,000 mg Documented by: [id number] Admin: 01/27/22 16:03 Dose: 1,000 mg Documented by: [id number] Admin: 01/27/22 08:02 Dose: 1,000 mg Documented by: [id number] Admin: 01/26/22 23:17 Dose: 1,000 mg Documented by: [id number] Admin: 01/26/22 16:43 Dose: 1,000 mg Documented by: [id number] Admin: 01/26/22 08:57 Dose: 1,000 mg Documented by: [id number] Admin: 01/25/22 23:54 Dose: 1,000 mg Documented by: [id number] Ascorbic Acid (Ascorbic Acid 500 Mg Tab) 250 mg PO BID ISHAN Stop: 02/25/22 08:59 Last Admin: 01/29/22 08:14 Dose: 250 mg Documented by: [id number] Admin: 01/28/22 21:07 Dose: 250 mg Documented by: [id number] Admin: 01/28/22 09:53 Dose: 250 mg Documented by: [id number] Admin: 01/27/22 21:03 Dose: 250 mg Documented by: [id number] Admin: 01/27/22 07:47 Dose: 250 mg Documented by: [id number] Admin: 01/26/22 20:30 Dose: 250 mg Documented by: [id number] Admin: 01/26/22 08:08 Dose: 250 mg Documented by: [id number] Chlorhexidine Gluconate (Chlorhexidine Gluconate 0.12% 480 Ml) 15 ml MT BID PRN PRN Reason: Oral Hygiene Stop: 02/25/22 16:44 Last Admin: 01/28/22 00:01 Dose: 15 ml Documented by: [id number] Admin: 01/27/22 07:59 Dose: 15 ml Documented by: [id number] Admin: 01/26/22 20:27 Dose: 15 ml Documented by: [id number] Digoxin (Digoxin 0.125 Mg Tab) 0.125 mg PO DAILY@1600 [facility] Stop: 02/25/22 15:59 Last Admin: 01/29/22 15:40 Dose: 0.125 mg Documented by: [id number] Admin: 01/28/22 16:33 Dose: 0.125 mg Documented by: [id number] Admin: 01/27/22 16:01 Dose: 0.125 mg Documented by: [id number] Admin: 01/26/22 16:36 Dose: 0.125 mg Documented by: [id number] Ferrous Sulfate (Ferrous Sulfate 325 Mg Tab) 325 mg PO BID [facility] Stop: 02/25/22 08:59 Last Admin: 01/29/22 08:13 Dose: 325 mg Documented by: [id number] Admin: 01/28/22 21:09 Dose: 325 mg Documented by: [id number] Admin: 01/28/22 09:53 Dose: 325 mg Documented by: [id number] Admin: 01/27/22 21:04 Dose: 325 mg Documented by: [id number] Admin: 01/27/22 07:47 Dose: 325 mg Documented by: [id number] Admin: 01/26/22 20:29 Dose: 325 mg Documented by: [id number] Admin: 01/26/22 08:08 Dose: 325 mg Documented by: [id number] Fluticasone/Vilanterol (Fluticasone/Vilanterol 200/25mcg 14 Puffs/Inhaler) 1 puffs INH DAILY ISHAN Stop: 02/25/22 08:59 Last Admin: 01/29/22 08:16 Dose: 1 puffs Documented by: [id number] Admin: 01/28/22 09:54 Dose: 1 puffs Documented by: [id number] Admin: 01/27/22 07:48 Dose: 1 puffs Documented by: [id number] Admin: 01/26/22 08:09 Dose: 1 puffs Documented by: [id number] Furosemide (Furosemide 80 Mg Tab) 80 mg PO BID17 ISHAN Stop: 02/25/22 08:59 Last Admin: 01/29/22 17:49 Dose: 80 mg Documented by: [id number] Admin: 01/29/22 08:14 Dose: 80 mg Documented by: [id number] Admin: 01/28/22 16:33 Dose: 80 mg Documented by: [id number] Admin: 01/26/22 16:42 Dose: Not Given Documented by: [id number] Admin: 01/26/22 08:07 Dose: 80 mg Documented by: [id number] Lidocaine (Lidocaine 5% 1 Patch) 1 patch TD QPM ISHAN Stop: 02/24/22 21:45 Last Admin: 01/28/22 21:05 Dose: 1 patch Documented by: [id number] Admin: 01/27/22 21:05 Dose: 1 patch Documented by: [id number] Admin: 01/26/22 20:28 Dose: 1 patch Documented by: [id number] Admin: 01/25/22 23:53 Dose: 1 patch Documented by: [id number] Magnesium Oxide (Magnesium Oxide 400 Mg Tab) 200 mg PO DAILY ISHAN Stop: 02/25/22 08:59 Last Admin: 01/29/22 08:14 Dose: 200 mg Documented by: [id number] Admin: 01/28/22 09:52 Dose: 200 mg Documented by: [id number] Admin: 01/27/22 07:48 Dose: 200 mg Documented by: [id number] Admin: 01/26/22 08:08 Dose: 200 mg Documented by: [id number] Metoprolol Succinate (Metoprolol Succ 25mg Ext Rel Tab) 25 mg PO DAILY ISHAN Stop: 02/25/22 08:59 Last Admin: 01/29/22 08:15 Dose: 25 mg Documented by: [id number] Admin: 01/28/22 09:54 Dose: 25 mg Documented by: [id number] Admin: 01/27/22 08:02 Dose: Not Given Documented by: [id number] Admin: 01/26/22 08:09 Dose: 25 mg Documented by: [id number] Metoprolol Succinate (Metoprolol Succ 25mg Ext Rel Tab) 12.5 mg PO HS ISHAN Stop: 02/24/22 21:45 Last Admin: 01/28/22 21:10 Dose: Not Given Documented by: [id number] Admin: 01/27/22 21:05 Dose: 12.5 mg Documented by: [id number] Admin: 01/26/22 20:24 Dose: Not Given Documented by: [id number] Admin: 01/25/22 23:54 Dose: 12.5 mg Documented by: [id number] Miscellaneous (Remove Lidoderm Patch) 1 ea N/A QAM [facility] Stop: 02/25/22 08:59 Last Admin: 01/29/22 09:30 Dose: 1 ea Documented by: [id number] Admin: 01/28/22 07:14 Dose: Not Given Documented by: [id number] Admin: 01/27/22 07:48 Dose: 1 ea Documented by: [id number] Admin: 01/26/22 08:09 Dose: 1 ea Documented by: [id number] Montelukast Sodium (Montelukast Sodium 10 Mg Tablet) 10 mg PO QPM [facility] Stop: 02/27/22 20:59 Last Admin: 01/28/22 21:09 Dose: 10 mg Documented by: [id number] Multivitamins/Folic Acid/Vitamin C (Multivitamin Chewable Tab) [facility] Stop: 02/25/22 08:59 Last Admin: 01/29/22 08:15 Dose: 1 tab Documented by: [id number] Admin: 01/28/22 09:54 Dose: 1 tab Documented by: [id number] Admin: 01/27/22 07:47 Dose: 1 tab Documented by: [id number] Admin: 01/26/22 08:09 Dose: 1 tab Documented by: [id number] Neomycin/Polymyxin/Bacitracin (Neomycin/Polymyx/Bacitr Oint 15 Gm Tube) 1 appln EXT BID [facility] Stop: 02/25/22 20:59 Last Admin: 01/29/22 08:16 Dose: 1 appln Documented by: [id number] Admin: 01/28/22 21:10 Dose: Not Given Documented by: [id number] Admin: 01/28/22 09:55 Dose: 1 appln Documented by: [id number] Admin: 01/27/22 21:07 Dose: 1 appln Documented by: [id number] Admin: 01/27/22 07:48 Dose: Not Given Documented by: [id number] Admin: 01/26/22 20:29 Dose: 1 appln Documented by: [id number] Potassium Chloride (Potassium Chloride Crtab 20 Meq Tabcr) 20 meq PO BID ISHAN Stop: 02/25/22 20:59 Last Admin: 01/29/22 08:13 Dose: 20 meq Documented by: [id number] Admin: 01/28/22 21:08 Dose: 20 meq Documented by: [id number] Admin: 01/27/22 07:46 Dose: 20 meq Documented by: [id number] Admin: 01/26/22 20:31 Dose: 20 meq Documented by: [id number] Sertraline HCl (Sertraline Hcl 50 Mg Tablet) 50 mg PO QAM [facility] Stop: 02/25/22 08:59 Last Admin: 01/29/22 08:15 Dose: 50 mg Documented by: [id number] Admin: 01/28/22 09:53 Dose: 50 mg Documented by: [id number] Admin: 01/27/22 07:48 Dose: 50 mg Documented by: [id number] Admin: 01/26/22 08:09 Dose: 50 mg Documented by: [id number] Vitamin D (Cholecalciferol 1,000 Units 25 Mcg Tab) 2,000 units PO QAM ISHAN Stop: 02/25/22 08:59 Last Admin: 01/29/22 08:15 Dose: 2,000 units Documented by: [id number] Admin: 01/28/22 09:53 Dose: 2,000 units Documented by: [id number] Admin: 01/27/22 07:47 Dose: 2,000 units Documented by: [id number] Admin: 01/26/22 08:08 Dose: 2,000 units Documented by: [id number] Warfarin Sodium (Warfarin Sod 1.25 Mg Tab) 1.25 mg PO DAILY@1600 ISHAN Stop: 02/28/22 15:59 Last Admin: 01/29/22 15:41 Dose: 1.25 mg Documented by: [id number] Discontinued Medications Docusate Sodium (Docusate Sodium 100 Mg Cap) 100 mg PO BID ISHAN Stop: 02/24/22 21:45 Last Admin: 01/27/22 07:48 Dose: Not Given Documented by: [id number] Admin: 01/26/22 22:17 Dose: 100 mg Documented by: [id number] Admin: 01/26/22 08:29 Dose: Not Given Documented by: [id number] Admin: 01/25/22 23:53 Dose: 100 mg Documented by: [id number] Fentanyl Citrate (Fentanyl Citrate 100 Mcg/2 Ml Vial) 25 mcg IV NOW ONE Stop: 01/25/22 14:48 Last Admin: 01/25/22 15:41 Dose: 25 mcg Documented by: [id number] Furosemide (Furosemide 40 Mg/4 Ml Vial) 40 mg IV ONE ONE Stop: 01/25/22 19:16 Last Admin: 01/25/22 20:45 Dose: Not Given Documented by: [id number] Sodium Chloride (Nss 1000ml) 1,000 mls @ 75 mls/hr IV .[id number] ISHAN Stop: 01/26/22 04:04 Last Infusion: 01/25/22 21:52 Dose: 0 mls/hr Documented by: [id number] Admin: 01/25/22 15:39 Dose: 75 mls/hr Documented by: [id number] Acetaminophen (Ofirmev) 1,000 mg in 100 mls @ 400 mls/hr IV NOW STA Stop: 01/25/22 15:01 Last Infusion: 01/25/22 16:40 Dose: 0 mls/hr Documented by: [id number] Admin: 01/25/22 15:39 Dose: 400 mls/hr Documented by: [id number] Sodium Chloride (Nss) 500 mls @ 50 mls/hr IV .Q10H ONE Stop: 01/27/22 04:19 Last Infusion: 01/27/22 04:46 Dose: 0 mls/hr Documented by: [id number] Admin: 01/26/22 18:39 Dose: 50 mls/hr Documented by: [id number] Ioversol (Optiray 320 100ml) 94 ml IV ONCE ONE Stop: 01/25/22 16:41 Last Admin: 01/25/22 16:40 Dose: 94 ml Documented by: [id number] Miscellaneous (Zafirlukast [Accolate]: Order Awaiting Action) 1 ea N/A QS ISHAN Stop: 02/25/22 07:59 Last Admin: 01/28/22 09:52 Dose: Not Given Documented by: [id number] Admin: 01/28/22 00:01 Dose: Not Given Documented by: [id number] Admin: 01/27/22 16:02 Dose: Not Given Documented by: [id number] Admin: 01/27/22 07:49 Dose: Not Given Documented by: [id number] Admin: 01/26/22 23:15 Dose: Not Given Documented by: [id number] Admin: 01/26/22 16:36 Dose: Not Given Documented by: [id number] Admin: 01/26/22 08:29 Dose: Not Given Documented by: [id number] Potassium Chloride (Potassium Chloride Crtab 20 Meq Tabcr) 40 meq PO NOW [facility] Stop: 01/25/22 19:02 Last Admin: 01/25/22 23:52 Dose: 40 meq Documented by: [id number] Potassium Chloride (Potassium Chloride Crtab 20 Meq Tabcr) 20 meq PO ONE ONE Stop: 01/25/22 21:01 Last Admin: 01/25/22 20:45 Dose: Not Given Documented by: [id number] Potassium Chloride (Potassium Chloride 10 Meq Tabcr) 10 meq PO DAILY [facility] Stop: 02/25/22 08:59 Last Admin: 01/26/22 08:09 Dose: 10 meq Documented by: [id number] Potassium Chloride (Potassium Chloride Crtab 20 Meq Tabcr) 40 meq PO ONE ONE Stop: 01/26/22 09:12 Last Admin: 01/26/22 11:09 Dose: 40 meq Documented by: [id number] Warfarin Sodium (Warfarin Sod 1 Mg Tab) 1 mg PO DAILY@1600 [facility] Stop: 02/25/22 15:59 Last Admin: 01/28/22 16:33 Dose: 1 mg Documented by: [id number] Admin: 01/27/22 16:02 Dose: 1 mg Documented by: [id number] Admin: 01/26/22 16:35 Dose: 1 mg Documented by: [id number] Imaging Data Radiologist's Impression: Abdomen/Pelvis CT 01/25/22 14:43 CT SCAN OF THE ABDOMEN AND PELVIS WITH IV CONTRAST; CT SCAN OF THE LUMBAR SPINE WITH IV CONTRAST; CT SCAN OF THE BONY PELVIS WITHOUT IV CONTRAST CLINICAL HISTORY: Fall. Trauma. Low back pain. Weakness. COMPARISON STUDY: Abdominal CT dated 09/02/2021. TECHNIQUE: Unenhanced CT of the bony pelvis is performed from the pelvic inlet to the proximal femora. Suboptimally, following the IV administration of 94 cc of Optiray 320, CT scan of the abdomen and pelvis is performed from the lung bases to the proximal femora. CT scan of the lumbar spine is also performed from the lower thoracic spine to sacrum. Images for all examinations are reviewed in the axial, sagittal, and coronal planes. IV contrast was administered without complication. A dose lowering technique was utilized adhering to the principles of ALARA. CT DOSE: 526.49 mGy.cm FINDINGS: Lung bases: The heart is enlarged and without pericardial effusion. Pacemaker leads are noted. A fat-containing Bochdalek hernia is seen at the left lung base. There is a small right pleural effusion with dependent atelectasis. No airspace consolidation is seen typical for pneumonia. Liver: The contrast-enhanced liver is normal in size, contour, and attenuation. There is no intrahepatic biliary ductal dilatation. The hepatic veins and portal veins are patent. Gallbladder: Surgically absent noting clips in the gallbladder fossa. Spleen: Normal in size and attenuation. Pancreas: Moderately atrophic and grossly unremarkable. Adrenal glands: Unremarkable. Kidneys: The contrast enhanced kidneys demonstrate mild cortical atrophy and are without hydronephrosis. The kidneys enhance symmetrically. Abdominal vasculature: The abdominal aorta is normal in course and caliber noting moderate to advanced atherosclerotic calcification. Stomach and bowel: There is a small hiatal hernia. There is rectosigmoid fecal retention and moderate to severe constipation. No bowel obstruction is identified. The appendix is not identified and reported surgically absent. Peritoneum/retroperitoneum: There is no intraperitoneal free air or abdominal ascites. No retroperitoneal hematoma is identified. Lymphadenopathy: None. Pelvic viscera: The bladder is partially decompressed around a Villalobos catheter. Foci of intraluminal gas are noted. Uterine fibroids are suggested. No adnexal lesion is seen. Skeletal structures: The skeletal structures are osteopenic. No lytic or blastic lesions are seen. There are chronic/healed right-sided rib fractures. Soft tissues: There is body wall edema. BONY PELVIS: There is a minimally angulated fracture at the sacrococcygeal junction seen on sagittal image #[address] No additional fracture is seen involving the bony pelvis. The proximal femora appear intact. 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 Sclerotic change is noted in the sacroiliac joints. Moderate degenerative changes noted in the hips. LUMBAR SPINE: Vertebral body height is maintained throughout the lumbar spine. There is no evidence of acute fracture or malalignment involving the lumbar spine. There are bilateral pars defects at L5 with advanced disc space narrowing, endplate sclerosis, and 9 mm of anterolisthesis at L5-S1. There is left lateral disc bulge at L5-S1. This may impinge on the exiting left L5 nerve root. Alignment is otherwise preserved. Anterior and lateral marginal osteophytes are seen throughout. The transverse and spinous processes are intact. Mild to moderate disc space narrowing is noted at the remaining lumbar levels. There is no CT evidence of large disc herniation or high-grade central canal stenosis. There is fatty atrophy of the paraspinous musculature. IMPRESSION: 1. There is no evidence of solid organ injury in the abdomen or pelvis. 2. There is no evidence of acute fracture or malalignment involving the lumbar spine. 3. There is a minimally angulated fracture at the sacrococcygeal junction which is age indeterminant but new from 09/02/2021. Correlate for point tenderness. 4. No additional fracture is identified involving the hips or bony pelvis. 5. There are bilateral pars defects at L5 with advanced disc space narrowing and grade 1 anterolisthesis at L5-S1. 6. There is rectosigmoid fecal retention and moderate to severe constipation. No bowel obstruction is seen. 7. 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 8. Cardiomegaly and small right pleural effusion. 9. Additional findings as above. ACT 112: Negative or not required by law. Electronically signed by: Jason Bergeron M.D. 01/25/2022 5:[address] 01/25/22 14:43 CT SCAN OF THE ABDOMEN AND PELVIS WITH IV CONTRAST; CT SCAN OF THE LUMBAR SPINE WITH IV CONTRAST; CT SCAN OF THE BONY PELVIS WITHOUT IV CONTRAST CLINICAL HISTORY: Fall. Trauma. Low back pain. Weakness. COMPARISON STUDY: Abdominal CT dated 09/02/2021. TECHNIQUE: Unenhanced CT of the bony pelvis is performed from the pelvic inlet to the proximal femora. Suboptimally, following the IV administration of 94 cc of Optiray 320, CT scan of the abdomen and pelvis is performed from the lung bases to the proximal femora. CT scan of the lumbar spine is also performed from the lower thoracic spine to sacrum. Images for all examinations are reviewed in the axial, sagittal, and coronal planes. IV contrast was administered without complication. A dose lowering technique was utilized adhering to the principles of ALARA. CT DOSE: 526.49 mGy.cm FINDINGS: Lung bases: The heart is enlarged and without pericardial effusion. Pacemaker leads are noted. A fat-containing Bochdalek hernia is seen at the left lung base. There is a small right pleural effusion with dependent atelectasis. No airspace consolidation is seen typical for pneumonia. Liver: The contrast-enhanced liver is normal in size, contour, and attenuation. There is no intrahepatic biliary ductal dilatation. The hepatic veins and portal veins are patent. Gallbladder: Surgically absent noting clips in the gallbladder fossa. Spleen: Normal in size and attenuation. Pancreas: Moderately atrophic and grossly unremarkable. Adrenal glands: Unremarkable. Kidneys: The contrast enhanced kidneys demonstrate mild cortical atrophy and are without hydronephrosis. The kidneys enhance symmetrically. Abdominal vasculature: The abdominal aorta is normal in course and caliber noting moderate to advanced atherosclerotic calcification. Stomach and bowel: There is a small hiatal hernia. There is rectosigmoid fecal retention and moderate to severe constipation. No bowel obstruction is identified. The appendix is not identified and reported surgically absent. Peritoneum/retroperitoneum: There is no intraperitoneal free air or abdominal ascites. No retroperitoneal hematoma is identified. Lymphadenopathy: None. Pelvic viscera: The bladder is partially decompressed around a Villalobos catheter. Foci of intraluminal gas are noted. Uterine fibroids are suggested. No adnexal lesion is seen. Skeletal structures: The skeletal structures are osteopenic. No lytic or blastic lesions are seen. There are chronic/healed right-sided rib fractures. Soft tissues: There is body wall edema. BONY PELVIS: There is a minimally angulated fracture at the sacrococcygeal junc tion seen on sagittal image #[address] No additional fracture is seen involving the bony pelvis. The proximal femora appear intact. 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 Sclerotic change is noted in the sacroiliac joints. Moderate degenerative changes noted in the hips. LUMBAR SPINE: Vertebral body height is maintained throughout the lumbar spine. There is no evidence of acute fracture or malalignment involving the lumbar spine. There are bilateral pars defects at L5 with advanced disc space narrowing, endplate sclerosis, and 9 mm of anterolisthesis at L5-S1. There is left lateral disc bulge at L5-S1. This may impinge on the exiting left L5 nerve root. Alignment is otherwise preserved. Anterior and lateral marginal osteophytes are seen throughout. The transverse and spinous processes are intact. Mild to moderate disc space narrowing is noted at the remaining lumbar levels. There is no CT evidence of large disc herniation or high-grade central canal stenosis. There is fatty atrophy of the paraspinous musculature. IMPRESSION: 1. There is no evidence of solid organ injury in the abdomen or pelvis. 2. There is no evidence of acute fracture or malalignment involving the lumbar spine. 3. There is a minimally angulated fracture at the sacrococcygeal junction which is age indeterminant but new from 09/02/2021. Correlate for point tenderness. 4. No additional fracture is identified involving the hips or bony pelvis. 5. There are bilateral pars defects at L5 with advanced disc space narrowing and grade 1 anterolisthesis at L5-S1. 6. There is rectosigmoid fecal retention and moderate to severe constipation. No bowel obstruction is seen. 7. 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 8. Cardiomegaly and small right pleural effusion. 9. Additional findings as above. ACT 112: Negative or not required by law. Electronically signed by: Jason Bergeron M.D. 01/25/2022 5:[address] 01/25/22 14:46 CT SCAN OF THE ABDOMEN AND PELVIS WITH IV CONTRAST; CT SCAN OF THE LUMBAR SPINE WITH IV CONTRAST; CT SCAN OF THE BONY PELVIS WITHOUT IV CONTRAST CLINICAL HISTORY: Fall. Trauma. Low back pain. Weakness. COMPARISON STUDY: Abdominal CT dated 09/02/2021. TECHNIQUE: Unenhanced CT of the bony pelvis is performed from the pelvic inlet to the proximal femora. Suboptimally, following the IV administration of 94 cc of Optiray 320, CT scan of the abdomen and pelvis is performed from the lung bases to the proximal femora. CT scan of the lumbar spine is also performed from the lower thoracic spine to sacrum. Images for all examinations are reviewed in the axial, sagittal, and coronal planes. IV contrast was administered without co mplication. A dose lowering technique was utilized adhering to the principles of ALARA. CT DOSE: 526.49 mGy.cm FINDINGS: Lung bases: The heart is enlarged and without pericardial effusion. Pacemaker leads are noted. A fat-containing Bochdalek hernia is seen at the left lung base. There is a small right pleural effusion with dependent atelectasis. No airspace consolidation is seen typical for pneumonia. Liver: The contrast-enhanced liver is normal in size, contour, and attenuation. There is no intrahepatic biliary ductal dilatation. The hepatic veins and portal veins are patent. Gallbladder: Surgically absent noting clips in the gallbladder fossa. Spleen: Normal in size and attenuation. Pancreas: Moderately atrophic and grossly unremarkable. Adrenal glands: Unremarkable. Kidneys: The contrast enhanced kidneys demonstrate mild cortical atrophy and are without hydronephrosis. The kidneys enhance symmetrically. Abdominal vasculature: The abdominal aorta is normal in course and caliber noting moderate to advanced atherosclerotic calcification. Stomach and bowel: There is a small hiatal hernia. There is rectosigmoid fecal retention and moderate to severe constipation. No bowel obstruction is identifi ed. The appendix is not identified and reported surgically absent. Peritoneum/retroperitoneum: There is no intraperitoneal free air or abdominal ascites. No retroperitoneal hematoma is identified. Lymphadenopathy: None. Pelvic viscera: The bladder is partially decompressed around a Villalobos catheter. Foci of intraluminal gas are noted. Uterine fibroids are suggested. No adnexal lesion is seen. Skeletal structures: The skeletal structures are osteopenic. No lytic or blastic lesions are seen. There are chronic/healed right-sided rib fractures. Soft tissues: There is body wall edema. BONY PELVIS: There is a minimally angulated fracture at the sacrococcygeal junction seen on sagittal image #[address] No additional fracture is seen involving the bony pelvis. The proximal femora appear intact. 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 Sclerotic change is noted in the sacroiliac joints. Moderate degenerative changes noted in the hips. LUMBAR SPINE: Vertebral body height is maintained throughout the lumbar spine. There is no evidence of acute fracture or malalignment involving the lumbar spine. There are bilateral pars defects at L5 with advanced disc space narrowing, endplate sclerosis, and 9 mm of anterolisthesis at L5-S1. There is left lateral disc bulge at L5-S1. This may impinge on the exiting left L5 nerve root. Alignment is otherwise preserved. Anterior and lateral marginal osteophytes are seen throughout. The transverse and spinous processes are intact. Mild to moderate disc space narrowing is noted at the remaining lumbar levels. There is no CT evidence of large disc herniation or high-grade central canal stenosis. There is fatty atrophy of the paraspinous musculature. IMPRESSION: 1. There is no evidence of solid organ injury in the abdomen or pelvis. 2. There is no evidence of acute fracture or malalignment involving the lumbar spine. 3. There is a minimally angulated fracture at the sacrococcygeal junction which is age indeterminant but new from 09/02/2021. Correlate for point tenderness. 4. No additional fracture is identified involving the hips or bony pelvis. 5. There are bilateral pars defects at L5 with advanced disc space narrowing and grade 1 anterolisthesis at L5-S1. 6. There is rectosigmoid fecal retention and moderate to severe constipation. No bowel obstruction is seen. 7. 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 8. Cardiomegaly and small right pleural effusion. 9. Additional findings as above. ACT 112: Negative or not required by law. Electronically signed by: Jason Bergeron M.D. 01/25/2022 5:12 PM Blood Pressure Blood Pressure Findings: Normal blood pressure Blood Pressure Disposition: did not require urgent referral Discharge Plan Visit Data Chief Complaint: Hip Pain ED Provider: Ange Taylor Discharge Problem: Closed sacral fracture, A-fib, Anticoagulated Patient Disposition: Admitted As Inpatient Discharge Instructions Interventions: ED Discharge Assessment Last Done: 01/25/22 20:54 Discharge Problem: Closed sacral fracture Qualifiers: Encounter type: initial encounter Zone of sacrum fracture: unspecified portion of sacrum Qualified Code(s): S32.10XA - Unspecified fracture of sacrum, initial encounter for closed fracture A-fib Qualifiers: Atrial fibrillation type: permanent Qualified Code(s): I48.21 - Permanent atrial fibrillation
[2022-01-25] MEDS: DOCUSATE SODIUM 100 MG CAP PO SCH (23:53)
[2022-01-25] MEDS: LIDOCAINE 5% 1 PATCH TD SCH (23:53)
[2022-01-25] MEDS: METOPROLOL SUCC 25MG EXT REL TAB PO SCH (23:54)
[2022-01-25] MEDS: ACETAMINOPHEN 500 MG TAB PO SCH (23:54)
[2022-01-26 06:09] LABS: Hematocrit (blood only) 28.6 % (37-47); Hemoglobin 9.3 g/dL (12.0-16.0); Mean Corpuscular Hemoglobin 30.3 pg (25-34); Mean Corpuscular Hgb Conc 32.5 g/dL (32-36); Mean Corpuscular Volume 93.2 fL (80-100); Platelet Count 235 K/uL (130-400); RDW Coefficient of Variation 17.8 % (11.5-14.5); Red Blood Count 3.07 M/uL (4.2-5.4); White Blood Count 4.94 K/uL (4.8-10.8)
[2022-01-26 06:16] LABS: INR 2.7 (0.9-1.1); Prothrombin Time 27.6 Seconds (9.0-12.0)
[2022-01-26 06:30] LABS: BUN Creatinine Ratio 28.8 (10-20); Calcium 7.2 mg/dl (8.5-10.1); Creatinine Clr Calc Pharmacy 57.8 ml/min; Est GFR (African American) 104.5 ml/min; Est GFR (Non-African American) 90.1 ml/min; Potassium 3.6 mmol/L (3.5-5.1)
[2022-01-26] MEDS: FUROSEMIDE 80 MG TAB PO SCH ×2 (08:07→16:42)
[2022-01-26] MEDS: ASCORBIC ACID 500 MG TAB PO SCH ×2 (08:08→20:30)
[2022-01-26] MEDS: FERROUS SULFATE 325 MG TAB PO SCH ×2 (08:08→20:29)
[2022-01-26] MEDS: MAGNESIUM OXIDE 400 MG TAB PO SCH (08:08)
[2022-01-26] MEDS: CHOLECALCIFEROL 1,000 UNITS 25 MCG TAB PO SCH (08:08)
[2022-01-26] MEDS: FLUTICASONE/VILANTEROL 200/25MCG 14 PUFFS/INHALER INH SCH (08:09)
[2022-01-26] MEDS: SERTRALINE HCL 50 MG TABLET PO SCH (08:09)
[2022-01-26] MEDS: METOPROLOL SUCC 25MG EXT REL TAB PO SCH ×2 (08:09→20:24)
[2022-01-26] MEDS: MULTIVITAMIN CHEWABLE TAB PO SCH (08:09)
[2022-01-26] MEDS: DOCUSATE SODIUM 100 MG CAP PO SCH ×3 (08:29→22:17)
[2022-01-26] MEDS: ACETAMINOPHEN 500 MG TAB PO SCH ×3 (08:57→23:17)
[2022-01-26] MEDS ORDERED: POTASSIUM CHLORIDE 10 MEQ TABCR PO SCH (09:00)
[2022-01-26] MEDS ORDERED: POTASSIUM CHLORIDE CRTAB 20 MEQ TABCR PO ONE (09:11)
--- NOTE | 2022-01-26 13:16 | Magnetic Resonance Report ---
MRI OF THE LUMBAR SPINE WITHOUT IV CONTRAST CLINICAL HISTORY: Low back pain. Left lower extremity radiculopathy. COMPARISON STUDY: CT of the lumbar spine dated 01/25/2022. TECHNIQUE: MRI of the lumbar spine is performed utilizing various T1 and T2-weighted sequences in the axial and sagittal planes. IV contrast was not administered for this examination. The examination is compromised by motion artifact. FINDINGS: Lumbar spine: Marrow signal intensity is heterogeneous. Vertebral body height is maintained throughou t the lumbar spine. There is no MRI evidence of acute or healing fracture. There are bilateral pars d efects at L5 with 9 mm of anterolisthesis at L5-S1. Alignment is otherwise preserved. Tiny anterior a nd lateral marginal osteophytes are seen throughout. The transverse and spinous processes appear inta ct. Chronic degenerative endplate changes throughout the visualized thoracolumbar spine. There is mil d degenerative endplate edema seen at L2-L3 and L5-S1. No destructive bony lesion is identified. Intervertebral discs: Disc desiccation and loss of height is seen throughout the lumbar spine. Loss o f height is severe at L5-S1 and at most mild at the remaining levels. Spinal cord: The visualized spinal cord is normal in morphology and signal intensity. The conus medul oswaldo terminates at the level of L1. The nerve roots of the cauda equina are normal in morphology. L1-L2: Unremarkable. L2-L3: There is minimal posterior disc bulge. This abuts the transiting nerve roots. The central bree l and neural foramina are clear. L3-L4: There is minimal disc bulge. The central canal and neural foramina are patent. Mild facet arth ropathy is of no consequence. L4-L5: Unremarkable. Mild facet arthropathy is of no consequence. L5-S1: There is minimal posterior disc bulge. The central canal is clear. There is left lateral disc bulge seen on axial image #5 of the lower axial T2-weighted sequence. This contributes to subarticula r stenosis and likely impinges on the exiting left L5 nerve root. There is a mild right-sided subarti cular stenosis. In conjunction with facet arthropathy there is severe left and mild right-sided neura l foraminal stenosis. Sacrum: Left sacral alar fracture is partially visualized with associated marrow edema. Soft tissues: There is mild presacral soft tissue edema. There is fatty atrophy of the paraspinous mu sculature. The retroperitoneal structures are grossly unremarkable but incompletely evaluated. IMPRESSION: 1. Left sacral alar fracture is partially visualized with associated marrow edema. 2. There is no evidence of acute fracture or malalignment involving the lumbar spine. 3. There are bilateral pars defects of L5 with advanced disc space narrowing and grade 1 anterolisthe sis at L5-S1. 4. Left lateral disc bulge at L5-S1 continues to severe left-sided subarticular and neural foraminal stenosis and likely impinges on the exiting left L5 nerve root. 5. Mild spondylotic change at the remaining lumbar levels. See discussion for detailed level by level analysis. Dictated: 01/26/2022 12:55 PM Transcribed: 01/26/2022 1:14 PM Mandie [id number] [email or web address] Electronically signed by: Jason Bergeron M.D. 01/26/2022 1:15 PM
--- NOTE | 2022-01-26 14:11 | Hospitalist Progress Note ---
Date of Service January 26, 2022 Assessment & Plan (1) Fall: (2) Fractured coccyx: Plan: Patient is 71 yr female with H/O Persistent atrial fibrillation, on warfarin, s/p DANAE guided DCCV in 10/2018 with recurrent atrial fibrillation s/p cardioversion 05/05/2020, 09/05/2020 with recurrent atrial fibrillation 12/2020, tachybrady syndrome s/p PPM, chronic diastolic CHF, history of gastric bypass, COPD, depression, chronic anemia presented to ER with complaint of mechanical fall onto buttocks 3 days ago with pain to buttocks and left upper leg/hip Sacrococcygeal fracture L5 advanced disc disease, grade 1 anterolisthesis at L5-S1 Lumbar spinal stenosis with radiculopathy H/O Recent Fall --CT L Spine: There is no evidence of acute fracture or malalignment involving the lumbar spine. There are bilateral pars defects at L5 with advanced disc space narrowing and grade 1 anterolisthesis at L5-S1. --CT Pelvis: There is a minimally angulated fracture at the sacrococcygeal junction which is age indeterminant but new from 09/02/2021. No additional fracture is identified involving the hips or bony pelvis. --CT Abd/pelvis: There is no evidence of solid organ injury in the abdomen or pelvis. 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 --MRI Lumbar Spine: Left sacral alar fracture is partially visualized with associated marrow edema. There is no evidence of acute fracture or malalignment involving the lumbar spine. There are bilateral pars defects of L5 with advanced disc space narrowing and grade 1 anterolisthesis at L5-S1. Left lateral disc bulge at L5-S1 continues to severe left-sided subarticular and neural foraminal stenosis and likely impinges on the exiting left L5 nerve root. Mild spondylotic change at the remaining lumbar levels. See discussion for detailed level by level analysis. --Fall precautions Pain control Orthopedic consult PT OT (3) Hypokalemia: Plan: Replace and monitor (4) Acute on chronic diastolic (congestive) heart failure: Plan: Patient reports increased weight gain and B/L LE edema past couple of days. Also missed diuretic doses Last Echo 07/2021: EF: 60-65%, grade 2 diastolic dysfunction, moderate tricuspid regurgitation Continue fluid restriction low-sodium diet monitor I's and O's, daily weight Received a dose of IV lasix Monitor volume status Continue Lasix 80 mg p.o. twice daily (5) A-fib: (6) Supratherapeutic INR: Plan: Chronic atrial fibrillation on warfarin INR: 3.5>2.7 Continue metoprolol succinate, digoxin Resume Coumadin at lower dose (7) Tachy-corin syndrome: Plan: S/P pacemaker (8) COPD (chronic obstructive pulmonary disease): Plan: No acute exacerbation Continue home inhalers (9) Anemia: Plan: Chronic anemia Baseline in the 10's Monitor H&H DVT Px Coumadin Code Status Full code Admission and Anticipated Discharge Date Admission Date: January 25, 2022 Subjective Patient is seen and examined at bedside States having lower back pain radiating to leg Denies any chest pain, dyspnea, dizziness, nausea, abd pain Offers no other complaints Review of Systems Review of Systems: All systems reviewed & are unremarkable except as noted in Subjective Physical Exam Physical Exam: Physical Exam: Vitals signs as noted above General Appearance:Thin, frail, chronic ill appearing, no apparent distress Head: normocephalic, Atraumatic Eyes: normal inspection, EOMI Neck: supple, Trachea midline Respiratory/Chest: Normal breath sounds, CTA, No accessory muscle use Cardiovascular: S1, S2, No murmur Abdomen/GI:Soft, Non tender, Bowel sounds present Back: Sacral tenderness Extremities/Musculoskeletal:normal inspection, 1+ B/L LE edema Neurologic/Psych:AAOX3, grossly no focal neurological deficits, +Hearing impairment Skin: normal color, warm Results & Data Results & Data ([facility]) Vital Signs (Past 12 Hours) Vital Signs Temp Pulse Resp BP BP Pulse Ox 01/26/22 11:12 36.5 C 73 20 90/57 L 97 01/26/22 07:34 36.5 C 74 16 104/66 98 01/26/22 03:07 36.4 C L 86 18 101/63 98 Laboratory Results Short CBC 01/25/22 01/26/22 Range/Units 15:45 05:37 WBC 7.49 4.94 (4.8-10.8) K/uL Hgb 9.8 L 9.3 L (12.0-16.0) g/dL Hct 30.0 L 28.6 L (37-47) % Plt Count 264 235 (130-400) K/uL BMP 01/25/22 01/26/22 15:45 05:37 Sodium 141 141 Potassium 3.4 L 3.6 Chloride 106 109 H Carbon Dioxide 29 27 BUN 24 H 19 Creatinine 0.80 0.66 Glucose 71 62 L Calcium 7.8 L 7.2 L Liver Function 01/25/22 Range/Units 15:45 Total Bilirubin 0.8 (0.2-1.0) mg/dl AST 22 (13-39) U/L ALT 29 (7-52) U/L Alkaline Phosphatase 115 H (34-104) U/L Albumin 3.1 L (3.4-5.0) gm/dl Urine 01/25/22 Range/Units 15:45 Urine Color Yellow Urine Appearance Clear (Clear) Urine pH 7.5 (4.5-7.5) Ur Specific [place] 1.006 (1.000-1.030) Urine Protein Negative (Negative) Urine Glucose (UA) Negative (Negative) (1) A-fib Atrial fibrillation type: permanent Qualified Code(s): I48.21 - Permanent atrial fibrillation
[2022-01-26] MEDS: WARFARIN SOD 1 MG TAB PO SCH (16:35)
[2022-01-26] MEDS: DIGOXIN 0.125 MG TAB PO SCH (16:36)
[2022-01-26] MEDS ORDERED: MICONAZOLE NITRATE POWDER 43 GM EXT PRN (16:49)
[2022-01-26] MEDS ORDERED: SODIUM CHLORIDE 0.9% 500 ML IV ONE (18:20)
[2022-01-26] MEDS: CHLORHEXIDINE GLUCONATE 0.12% 480 ML MT PRN (20:27)
[2022-01-26] MEDS: LIDOCAINE 5% 1 PATCH TD SCH (20:28)
[2022-01-26] MEDS: NEOMYCIN/POLYMYX/BACITR OINT 15 GM TUBE EXT SCH (20:29)
[2022-01-26] MEDS: POTASSIUM CHLORIDE CRTAB 20 MEQ TABCR PO SCH (20:31)
--- NOTE | 2022-01-26 22:08 | Electrocardiogram Report ---
Test Reason : Blood Pressure : / mmHG Vent. Rate : 087 BPM Atrial Rate : 048 BPM P-R Int : 000 ms QRS Dur : 084 ms QT Int : 320 ms P-R-T Axes : 000 -35 052 degrees QTc Int : 385 ms Poor data quality, interpretation may be adversely affected Atrial fibrillation with occasional ventricular-paced complexes Left axis deviation Low voltage QRS Septal infarct , age undetermined Nonspecific T wave abnormality Abnormal ECG When compared with ECG of 07-JAN-2022 14:41, Vent. rate has increased BY 5 BPM Confirmed by Seven Houser ([id number]) on 01/26/2022 10:08:11 PM Referred By: REFERRED SELF Confirmed By:Seven Houser
[2022-01-27 06:27] LABS: Hematocrit (blood only) 27.3 % (37-47); Hemoglobin 9.2 g/dL (12.0-16.0); Mean Corpuscular Hgb Conc 33.7 g/dL (32-36); Mean Corpuscular Volume 91.9 fL (80-100); Mean Platelet Volume 9.7 fL (7.4-10.4); Platelet Count 232 K/uL (130-400); RDW Coefficient of Variation 17.3 % (11.5-14.5); Red Blood Count 2.97 M/uL (4.2-5.4); White Blood Count 6.44 K/uL (4.8-10.8)
[2022-01-27 06:37] LABS: Prothrombin Time 30.5 Seconds (9.0-12.0)
[2022-01-27 07:09] LABS: BUN Creatinine Ratio 30.4 (10-20); Calcium 7.2 mg/dl (8.5-10.1); Creatinine Clr Calc Pharmacy 52.6 ml/min; Est GFR (African American) 88.5 ml/min; Est GFR (Non-African American) 76.4 ml/min; Potassium 4.4 mmol/L (3.5-5.1)
[2022-01-27] MEDS: POTASSIUM CHLORIDE CRTAB 20 MEQ TABCR PO SCH (07:46)
[2022-01-27] MEDS: FERROUS SULFATE 325 MG TAB PO SCH ×2 (07:47→21:04)
[2022-01-27] MEDS: CHOLECALCIFEROL 1,000 UNITS 25 MCG TAB PO SCH (07:47)
[2022-01-27] MEDS: MULTIVITAMIN CHEWABLE TAB PO SCH (07:47)
[2022-01-27] MEDS: ASCORBIC ACID 500 MG TAB PO SCH ×2 (07:47→21:03)
[2022-01-27] MEDS: FLUTICASONE/VILANTEROL 200/25MCG 14 PUFFS/INHALER INH SCH (07:48)
[2022-01-27] MEDS: DOCUSATE SODIUM 100 MG CAP PO SCH (07:48)
[2022-01-27] MEDS: NEOMYCIN/POLYMYX/BACITR OINT 15 GM TUBE EXT SCH ×2 (07:48→21:07)
[2022-01-27] MEDS: MAGNESIUM OXIDE 400 MG TAB PO SCH (07:48)
[2022-01-27] MEDS: SERTRALINE HCL 50 MG TABLET PO SCH (07:48)
[2022-01-27] MEDS: CHLORHEXIDINE GLUCONATE 0.12% 480 ML MT PRN (07:59)
[2022-01-27] MEDS: ACETAMINOPHEN 500 MG TAB PO SCH ×2 (08:02→16:03)
[2022-01-27] MEDS: METOPROLOL SUCC 25MG EXT REL TAB PO SCH ×2 (08:02→21:05)
[2022-01-27] MEDS ORDERED: DOCUSATE SODIUM 100 MG CAP PO PRN (08:51)
--- NOTE | 2022-01-27 09:25 | Consultation ---
Date of Consultation January 27, 2022 Assessment & Plan (1) Closed sacral fracture: Dr. Payne has reviewed this case and images. Sacral fracture treatment is nonoperative. Weight-bear as tolerated with assistance of the walker is recommended. Continue with oral pain management control. No further treatment is needed. She might be a candidate for acute rehab/SNF, (2) Spondylolisthesis at L5-S1 level: This is a secondary issue to her sacral fracture/possible incidental finding on imaging. Again she has a very significant medical history which makes Treatment conservative. If she becomes symptomatic from this, would recommend pain management consultation. This can certainly be done in an outpatient setting. Would not recommend agressive surgical intervention at this point in time. Thank you History of Present Illness Reason for Consultation: Sacral fracture Pars defect with spondylolisthesis L5-S1 Attending Physician: Luz Maria Bae MD History of Present Illness Is a pleasant 71-year-old female we are asked to see in consultation regarding an acute left-sided sacral fracture. She sustained a fall 6 days ago. She is unable get up on her own. She denies hitting her head/ LOC. Typically at home she ambulates with a cane. Pain currently is left SI/lumbar region rating down the left leg to the knee. This is aggravated with movement and walking. Allergies Allergy/AdvReac Type Severity Reaction Status Date / Time oxycodone AdvReac Intermediate GI SYMPTOMS Verified 01/25/22 14:59 Home Medications Medication Instructions Recorded Confirmed Type albuterol sulfate 90 mcg/actuation 2 puff INHALATION QID PRN 07/20/18 01/25/22 History aerosol inhaler (Ventolin HFA) cholecalciferol (vitamin D3) 50 2,000 unit PO QAM 07/20/18 01/25/22 History mcg (2,000 unit) capsule (Vitamin D3) fluticasone 250 mcg-salmeterol 50 1 inh INHALATION BID 07/20/18 01/25/22 History mcg/dose blistr powdr for inhalation (Advair Diskus) pediatric multivitamin no.7-folic 1 tab PO QAM 07/20/18 01/25/22 History acid 100 mcg chewable tablet (Flintstones Tab Chew) sertraline 50 mg tablet (Zoloft) 50 mg PO QAM 07/20/18 01/25/22 History warfarin 2.5 mg tablet See Rx Instructions .ROUTE .COMPLEX 07/20/18 01/25/22 History zafirlukast 20 mg tablet (Accolate) 20 mg PO BID 12/25/20 01/25/22 History iron,carbonyl 65 mg-vitamin C 125 1 tab PO BID 02/11/21 01/25/22 History mg tablet,delayed release (Vitron-C) digoxin 125 mcg (0.125 mg) tablet 125 mcg PO QAM 11/05/21 01/25/22 History (Digitek) furosemide 40 mg tablet 80 mg PO BID 11/05/21 01/25/22 History metoprolol succinate 25 mg 25 mg PO DAILY 11/05/21 01/25/22 History tablet,extended release 24 hr magnesium 200 mg tablet 200 mg PO DAILY 01/25/22 01/25/22 History metolazone 2.5 mg tablet 2.5 mg PO UD PRN 01/25/22 01/25/22 History metoprolol succinate 25 mg 12.5 mg PO HS 01/25/22 01/25/22 History tablet,extended release 24 hr ondansetron HCl 4 mg tablet 4 mg PO Q12H PRN 01/25/22 01/25/22 History potassium chloride 10 mEq 10 meq PO DAILY 01/25/22 01/25/22 History capsule,extended release Patient History Medical History A-fib S/P DANAE guided DCCV 10/2018. Reverted back to afib 03/2020. External DCCV 04/23/20. Anticoagulated warfarin daily CHF (congestive heart failure) COPD (chronic obstructive pulmonary disease) Diastolic dysfunction Grade 2 SUTTON (dyspnea on exertion) GERD (gastroesophageal reflux disease) Hard of hearing Hyperlipidemia Tachy-corin syndrome s/p pacemaker insertion 10/2018 with DANAE/cardioversion Tremor Surgical History H/O colonoscopy H/O gastric bypass H/O hernia repair H/O ventral hernia repair History of cardioversion History of cholecystectomy History of esophagogastroduodenoscopy (EGD) History of transesophageal echocardiography (DANAE) Pacemaker [employer] [place]---placed 11/03/[address] Zazzali S/P appendectomy S/P small bowel resection Family History Other Cancer Hypertension Lung disease No family history of adverse response to anesthesia Social History Smoking Status: Never smoker Second Hand Exposure: No; Hx Alcohol Use: No Hx Substance Use: No Preferred Language: Nepalese Communication Ability: Effective Global Human Resources Director Required: No Beliefs That Will Affect Care: None marital status: Current Living Situation: Spouse Current Living Situation Comment: lives in first floor apartment with has one step to enter current occupational status: employed Feels Safe at Home: Yes Safety Concerns: Feels Safe At This Time Assistive Devices: Cane and Walker Review of Systems Review of Systems: All systems reviewed & are unremarkable except as noted in HPI & below Physical Exam Physical Exam: She is lying in bed in no acute distress Tender to patient of the left sciatic notch Strength is intact bilateral lower extremity Neurovascular intact bilateral lower extremities Results & Data ([facility]) Vital Signs (Past 12 Hours) Vital Signs Temp Pulse Pulse Resp BP Pulse Ox 01/27/22 07:49 36.5 C 79 18 96/58 L 97 01/27/22 02:59 74 01/27/22 02:49 36.6 C 92 H 20 99/67 L 97 01/26/22 23:02 36.6 C 72 18 98/65 L 97 Diagnostic Findings [place], [place] [phone] Magnetic Resonance Report Patient:ETHEL SEWELL Admit Date:01/25/22 MR#:[id number] Address1:[address] [place] [address] Acct ID:[id number] Address2: Date:1950 [facility] Zip:[place] [address] Age:71 Location:2N Sex:F Room/Bed:[facility] Att Phy:Hima Mclain MD Diagnosis:FALL Cynthia Phy:Russell Olvera DO Service Date:01/26/22 Fam Phy: Interpreting Phy:Jason Bergeron MDAdmit Phy:Carlos Monsivais MD Ordering Phy:Hima Mclain MD cc: ~ MRI OF THE LUMBAR SPINE WITHOUT IV CONTRAST CLINICAL HISTORY: Low back pain. Left lower extremity radiculopathy. COMPARISON STUDY: CT of the lumbar spine dated 01/25/2022. TECHNIQUE: MRI of the lumbar spine is performed utilizing various T1 and T2- weighted sequences in the axial and sagittal planes. IV contrast was not administered for this examination. The examination is compromised by motion artifact. FINDINGS: Lumbar spine: Marrow signal intensity is heterogeneous. Vertebral body height is maintained throughout the lumbar spine. There is no MRI evidence of acute or healing fracture. There are bilateral pars defects at L5 with 9 mm of anterolisthesis at L5-S1. Alignment is otherwise preserved. Tiny anterior and lateral marginal osteophytes are seen throughout. The transverse and spinous processes appear intact. Chronic degenerative endplate changes throughout the visualized thoracolumbar spine. There is mild degenerative endplate edema seen at L2-L3 and L5-S1. No destructive bony lesion is identified. Intervertebral discs: Disc desiccation and loss of height is seen throughout the lumbar spine. Loss of height is severe at L5-S1 and at most mild at the remaining levels. Spinal cord: The visualized spinal cord is normal in morphology and signal intensity. The conus medullaris terminates at the level of L1. The nerve roots of the cauda equina are normal in morphology. L1-L2: Unremarkable. L2-L3: There is minimal posterior disc bulge. This abuts the transiting nerve roots. The central canal and neural foramina are clear. L3-L4: There is minimal disc bulge. The central canal and neural foramina are patent. Mild facet arthropathy is of no consequence. L4-L5: Unremarkable. Mild facet arthropathy is of no consequence. L5-S1: There is minimal posterior disc bulge. The central canal is clear. There is left lateral disc bulge seen on axial image #5 of the lower axial T2-weighted sequence. This contributes to subarticular stenosis and likely impinges on the exiting left L5 nerve root. There is a mild right-sided subarticular stenosis. In conjunction with facet arthropathy there is severe left and mild right-sided neural foraminal stenosis. Sacrum: Left sacral alar fracture is partially visualized with associated marrow edema. Soft tissues: There is mild presacral soft tissue edema. There is fatty atrophy of the paraspinous musculature. The retroperitoneal structures are grossly unremarkable but incompletely evaluated. IMPRESSION: 1. Left sacral alar fracture is partially visualized with associated marrow edema. 2. There is no evidence of acute fracture or malalignment involving the lumbar spine. 3. There are bilateral pars defects of L5 with advanced disc space narrowing and grade 1 anterolisthesis at L5-S1. 4. Left lateral disc bulge at L5-S1 continues to severe left-sided subarticular and neural foraminal stenosis and likely impinges on the exiting left L5 nerve root. 5. Mild spondylotic change at the remaining lumbar levels. See discussion for detailed level by level analysis. Dictated: 01/26/2022 12:55 PM Transcribed: 01/26/2022 1:14 PM Mandie [id number] [facility]IS[facility] Electronically signed by: Jason Bergeron M.D. 01/26/2022 1:15 PM Dictated:01/26/22 1255 Transcribed: 01/26/22 1314 [place], [place] [phone] CT Scan Report Patient:ETHEL SEWELL Admit Date:01/25/22 MR#:[id number] Address1:[address] [place] [address] Acct ID:[id number] Address2: Date:1950 [facility] Zip:[place] [address] Age:71 Location:ED Sex:F Room/Bed: Att Phy: Diagnosis:HIP PAIN Cynthia Phy:Russell Olvera DO Service Date:01/25/22 Fam Phy: Interpreting Phy:Jason Bergeron MDAdmit Phy: Ordering Phy:Ange Taylor M.D. cc: ~ CT SCAN OF THE ABDOMEN AND PELVIS WITH IV CONTRAST; CT SCAN OF THE LUMBAR SPINE WITH IV CONTRAST; CT SCAN OF THE BONY PELVIS WITHOUT IV CONTRAST CLINICAL HISTORY: Fall. Trauma. Low back pain. Weakness. COMPARISON STUDY: Abdominal CT dated 09/02/2021. TECHNIQUE: Unenhanced CT of the bony pelvis is performed from the pelvic inlet to the proximal femora. Suboptimally, following the IV administration of 94 cc of Optiray 320, CT scan of the abdomen and pelvis is performed from the lung bases to the proximal femora. CT scan of the lumbar spine is also performed from the lower thoracic spine to sacrum. Images for all examinations are reviewed in the axial, sagittal, and coronal planes. IV contrast was administered without complication. A dose lowering technique was utilized adhering to the principles of ALARA. CT DOSE: 526.49 mGy.cm FINDINGS: Lung bases: The heart is enlarged and without pericardial effusion. Pacemaker leads are noted. A fat-containing Bochdalek hernia is seen at the left lung base. There is a small right pleural effusion with dependent atelectasis. No airspace consolidation is seen typical for pneumonia. Liver: The contrast-enhanced liver is normal in size, contour, and attenuation. There is no intrahepatic biliary ductal dilatation. The hepatic veins and portal veins are patent. Gallbladder: Surgically absent noting clips in the gallbladder fossa. Spleen: Normal in size and attenuation. Pancreas: Moderately atrophic and grossly unremarkable. Adrenal glands: Unremarkable. Kidneys: The contrast enhanced kidneys demonstrate mild cortical atrophy and are without hydronephrosis. The kidneys enhance symmetrically. Abdominal vasculature: The abdominal aorta is normal in course and caliber noting moderate to advanced atherosclerotic calcification. Stomach and bowel: There is a small hiatal hernia. There is rectosigmoid fecal retention and moderate to severe constipation. No bowel obstruction is identified. The appendix is not identified and reported surgically absent. Peritoneum/retroperitoneum: There is no intraperitoneal free air or abdominal ascites. No retroperitoneal hematoma is identified. Lymphadenopathy: None. Pelvic viscera: The bladder is partially decompressed around a Villalobos catheter. Foci of intraluminal gas are noted. Uterine fibroids are suggested. No adnexal lesion is seen. Skeletal structures: The skeletal structures are osteopenic. No lytic or blastic lesions are seen. There are chronic/healed right-sided rib fractures. Soft tissues: There is body wall edema. BONY PELVIS: There is a minimally angulated fracture at the sacrococcygeal kelly ction seen on sagittal image #[address] No additional fracture is seen involving the bony pelvis. The proximal femora appear intact. 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 Sclerotic change is noted in the sacroiliac joints. Moderate degenerative changes noted in the hips. LUMBAR SPINE: Vertebral body height is maintained throughout the lumbar spine. There is no evidence of acute fracture or malalignment involving the lumbar spine. There are bilateral pars defects at L5 with advanced disc space narrowing, endplate sclerosis, and 9 mm of anterolisthesis at L5-S1. There is left lateral disc bulge at L5-S1. This may impinge on the exiting left L5 nerve root. Alignment is otherwise preserved. Anterior and lateral marginal osteophytes are seen throughout. The transverse and spinous processes are intact. Mild to moderate disc space narrowing is noted at the remaining lumbar levels. There is no CT evidence of large disc herniation or high-grade central canal stenosis. There is fatty atrophy of the paraspinous musculature. IMPRESSION: 1. There is no evidence of solid organ injury in the abdomen or pelvis. 2. There is no evidence of acute fracture or malalignment involving the lumbar spine. 3. There is a minimally angulated fracture at the sacrococcygeal junction which is age indeterminant but new from 09/02/2021. Correlate for point tenderness. 4. No additional fracture is identified involving the hips or bony pelvis. 5. There are bilateral pars defects at L5 with advanced disc space narrowing and grade 1 anterolisthesis at L5-S1. 6. There is rectosigmoid fecal retention and moderate to severe constipation. No bowel obstruction is seen. 7. 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 8. Cardiomegaly and small right pleural effusion. 9. Additional findings as above. ACT 112: Negative or not required by law. Electronically signed by: Jason Bergeron M.D. 01/25/2022 5:12 PM Dictated:01/25/221652 Transcribed: 01/25/221652 (1) Closed sacral fracture Encounter type: initial encounter Zone of sacrum fracture: unspecified portion of sacrum Qualified Code(s): S32.10XA - Unspecified fracture of sacrum, initial encounter for closed fracture
--- NOTE | 2022-01-27 11:29 | Hospitalist Progress Note ---
Date of Service January 27, 2022 Assessment & Plan (1) Fall: (2) Fractured coccyx: Plan: 71 yr female with H/O Persistent atrial fibrillation, on warfarin, s/p DANAE guided DCCV in 10/2018 with recurrent atrial fibrillation s/p cardioversion 05/05/2020, 09/05/2020 with recurrent atrial fibrillation 12/2020, tachybrady syndrome s/p PPM, chronic diastolic CHF, history of gastric bypass, COPD, depression, chronic anemia presented to ER with complaint of mechanical fall o nto buttocks 3 days prior with pain to buttocks and left upper leg/hip Sacrococcygeal fracture L5 advanced disc disease, grade 1 anterolisthesis at L5-S1 Lumbar spinal stenosis with radiculopathy H/O Recent Fall --CT L Spine: There is no evidence of acute fracture or malalignment involving the lumbar spine. There are bilateral pars defects at L5 with advanced disc spac e narrowing and grade 1 anterolisthesis at L5-S1. --CT Pelvis: There is a minimally angulated fracture at the sacrococcygeal junction which is age indeterminant but new from 09/02/2021. No additional fracture is identified involving the hips or bony pelvis. --CT Abd/pelvis: There is no evidence of solid organ injury in the abdomen or pelvis. 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 --MRI Lumbar Spine: Left sacral alar fracture is partially visualized with associated marrow edema. There is no evidence of acute fracture or malalignment involving the lumbar spine. There are bilateral pars defects of L5 with advanced disc space narrowing and grade 1 anterolisthesis at L5-S1. Left lateral disc bulge at L5-S1 continues to severe left-sided subarticular and neural foraminal stenosis and likely impinges on the exiting left L5 nerve root. Mild spondylotic change at the remaining lumbar levels. See discussion for detailed level by level analysis. Fall precautions Pain control. Continue scheduled tylenol and lidocaine patch Limit opioid use as much as possible Ortho eval appreciated. No surgical treatment recommended at this time PT/OT recommends SNF (3) Hypokalemia: Plan: K is 4.4 today Lasix was held earlier due to hypotension Hold home po lasis for today and monitor (4) Acute on chronic diastolic (congestive) heart failure: Plan: Patient reports increased weight gain and B/L LE edema past couple of days. Also missed diuretic doses Last Echo 07/2021: EF: 60-65%, grade 2 diastolic dysfunction, moderate tricuspid regurgitation Continue fluid restriction Low-sodium diet Monitor I's and O's, daily weight Home lasix was held yesterday due to hypotension Does not appear volume overloaded for now. Monitor and plan to resume home meds by tomorrow Patient has h/o hypotension per outpatient dr's notes. BP runs low. Monitor (5) A-fib: (6) Supratherapeutic INR: Plan: Chronic atrial fibrillation on warfarin INR: 3.5>2.7 >3 Continue metoprolol succinate, digoxin Currently on lower warfarin dose here. Will monitor (7) Tachy-corin syndrome: Plan: S/P pacemaker (8) COPD (chronic obstructive pulmonary disease): Plan: No acute exacerbation Continue home inhalers (9) Anemia: Plan: Chronic anemia Baseline in the Monitor H&H DVT Px Coumadin Code Status Full code Admission and Anticipated Discharge Date Admission Date: January 27, 2022 Subjective 71-year-old woman with history of atrial fibrillation on warfarin Status post DANAE with cardioversion, tachybradycardia syndrome status post pacemaker, chronic diastolic heart failure, history of bypass, COPD, depression, chronic anemia who presented after mechanical fall onto the buttocks and pain Seen and examined this morning. Patient reports buttock pain usually sitting up. Denies any headache, dizziness Denies any nausea, vomiting, abdominal pain Reported some abdominal discomfort earlier which is resolved. Denied any cough, chest pain or shortness of breath Physical Exam Constitutional: + well hydrated; no acute distress Eyes: PERRL, conjunctivae normal, anicteric sclerae ENMT: external ear and nose normal, oropharynx normal Respiratory: normal respiratory effort, lungs clear to auscultation Cardiovascular: Rate/Rhythm: + irregularly irregular S1 S2 Gastrointestinal (Abdomen): normal bowel sounds, soft, nontender, no hepatosplenomegaly Musculoskeletal: Tenderness over sacrococcygeal area Neurologic: PERRL, EOMI, accommodation nl, no face palsy, no dysarthria Tremors (chronic) Psychiatric: A+Ox3, euthymic affect Results & Data Results & Data ([facility]) Vital Signs (Past 12 Hours) Vital Signs Temp Pulse Pulse Resp BP BP Pulse Ox 01/27/22 11:23 36.5 C 80 18 95/61 L 99 01/27/22 07:49 36.5 C 79 18 96/58 L 97 01/27/22 02:59 74 01/27/22 02:49 36.6 C 92 H 20 99/67 L 97 Laboratory Results Abnormal lab results 01/27/22 01/27/22 01/27/22 Range/Units 05:59 05:59 05:59 RBC 2.97 L (4.2-5.4) M/uL Hgb 9.2 L (12.0-16.0) g/dL Hct 27.3 L (37-47) % RDW Std Deviation 58.0 H (36.4-46.3) fL RDW Coeff of Saman 17.3 H (11.5-14.5) % PT 30.5 H (9.0-12.0) Seconds INR 3.0 H (0.9-1.1) Chloride 110 H (98-107) mmol/L BUN 24 H (6-23) mg/dl BUN/Creatinine Ratio 30.4 H (10-20) Calcium 7.2 L (8.5-10.1) mg/dl (1) A-fib Atrial fibrillation type: permanent Qualified Code(s): I48.21 - Permanent atrial fibrillation
[2022-01-27] MEDS: DIGOXIN 0.125 MG TAB PO SCH (16:01)
[2022-01-27] MEDS: WARFARIN SOD 1 MG TAB PO SCH (16:02)
[2022-01-27] MEDS: LIDOCAINE 5% 1 PATCH TD SCH (21:05)
[2022-01-28] MEDS: CHLORHEXIDINE GLUCONATE 0.12% 480 ML MT PRN (00:01)
[2022-01-28 06:19] LABS: Hematocrit (blood only) 26.6 % (37-47); Hemoglobin 8.8 g/dL (12.0-16.0); Mean Corpuscular Hemoglobin 30.4 pg (25-34); Mean Corpuscular Hgb Conc 33.1 g/dL (32-36); Mean Platelet Volume 9.5 fL (7.4-10.4); Platelet Count 231 K/uL (130-400); RDW Coefficient of Variation 17.3 % (11.5-14.5); RDW Standard Deviation 58.7 fL (36.4-46.3); Red Blood Count 2.89 M/uL (4.2-5.4); White Blood Count 5.13 K/uL (4.8-10.8)
[2022-01-28 06:48] LABS: BUN Creatinine Ratio 32.8 (10-20); Calcium 7.3 mg/dl (8.5-10.1); Creatinine Clr Calc Pharmacy 62.2 ml/min; Est GFR (African American) 103.9 ml/min; Est GFR (Non-African American) 89.7 ml/min; Potassium 4.4 mmol/L (3.5-5.1)
[2022-01-28 07:02] LABS: INR 2.7 (0.9-1.1); Prothrombin Time 27.3 Seconds (9.0-12.0)
[2022-01-28] MEDS: MAGNESIUM OXIDE 400 MG TAB PO SCH (09:52)
[2022-01-28] MEDS: ACETAMINOPHEN 500 MG TAB PO SCH ×3 (09:52→16:35)
[2022-01-28] MEDS: SERTRALINE HCL 50 MG TABLET PO SCH (09:53)
[2022-01-28] MEDS: CHOLECALCIFEROL 1,000 UNITS 25 MCG TAB PO SCH (09:53)
[2022-01-28] MEDS: FERROUS SULFATE 325 MG TAB PO SCH ×2 (09:53→21:09)
[2022-01-28] MEDS: ASCORBIC ACID 500 MG TAB PO SCH ×2 (09:53→21:07)
[2022-01-28] MEDS: FLUTICASONE/VILANTEROL 200/25MCG 14 PUFFS/INHALER INH SCH (09:54)
[2022-01-28] MEDS: METOPROLOL SUCC 25MG EXT REL TAB PO SCH ×2 (09:54→21:10)
[2022-01-28] MEDS: MULTIVITAMIN CHEWABLE TAB PO SCH (09:54)
[2022-01-28] MEDS: NEOMYCIN/POLYMYX/BACITR OINT 15 GM TUBE EXT SCH ×2 (09:55→21:10)
--- NOTE | 2022-01-28 10:17 | Hospitalist Progress Note ---
Date of Service January 28, 2022 Assessment & Plan (1) Fall: (2) Fractured coccyx: Plan: 71 yr female with H/O Persistent atrial fibrillation, on warfarin, s/p DANAE guided DCCV in 10/2018 with recurrent atrial fibrillation s/p cardioversion 05/05/2020, 09/05/2020 with recurrent atrial fibrillation 12/2020, tachybrady syndrome s/p PPM, chronic diastolic CHF, history of gastric bypass, COPD, depression, chronic anemia presented to ER with complaint of mechanical fall o nto buttocks 3 days prior with pain to buttocks and left upper leg/hip Sacrococcygeal fracture L5 advanced disc disease, grade 1 anterolisthesis at L5-S1 Lumbar spinal stenosis with radiculopathy H/O Recent Fall --CT L Spine: There is no evidence of acute fracture or malalignment involving the lumbar spine. There are bilateral pars defects at L5 with advanced disc spac e narrowing and grade 1 anterolisthesis at L5-S1. --CT Pelvis: There is a minimally angulated fracture at the sacrococcygeal junction which is age indeterminant but new from 09/02/2021. No additional fracture is identified involving the hips or bony pelvis. --CT Abd/pelvis: There is no evidence of solid organ injury in the abdomen or pelvis. 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 --MRI Lumbar Spine: Left sacral alar fracture is partially visualized with associated marrow edema. There is no evidence of acute fracture or malalignment involving the lumbar spine. There are bilateral pars defects of L5 with advanced disc space narrowing and grade 1 anterolisthesis at L5-S1. Left lateral disc bulge at L5-S1 continues to severe left-sided subarticular and neural foraminal stenosis and likely impinges on the exiting left L5 nerve root. Mild spondylotic change at the remaining lumbar levels. See discussion for detailed level by level analysis. Fall precautions Pain control. Continue scheduled tylenol and lidocaine patch Has not required prn oxycodone for days. Will dc it Ortho eval appreciated. No surgical treatment recommended at this time PT/OT recommends SNF (3) Hypokalemia: Plan: K is 4.4 today Resume home lasix and potassium (4) Acute on chronic diastolic (congestive) heart failure: Plan: Patient reports increased weight gain and B/L LE edema past couple of days. Also missed diuretic doses Last Echo 07/2021: EF: 60-65%, grade 2 diastolic dysfunction, moderate tricuspid regurgitation Continue fluid restriction Low-sodium diet Monitor I's and O's, daily weight Home lasix was held due to hypotension Patient has h/o hypotension per outpatient inbound customer service representative's notes. BP runs low. Resume home lasix (5) A-fib: (6) Supratherapeutic INR: Plan: Chronic atrial fibrillation on warfarin Per outpatient Anticoagulation note, patient was on warfarin 2.5mg sun tue thur and 1.25mg on other days INR: 3.5>2.7 >3>2.7 Continue metoprolol succinate, digoxin Currently on lower warfarin dose here at 1mg daily. Will monitor (7) Tachy-corin syndrome: Plan: S/P pacemaker (8) COPD (chronic obstructive pulmonary disease): Plan: No acute exacerbation Continue home inhalers (9) Anemia: Plan: Chronic anemia Hb ranges 9-10s Hb is 8.8 today Monitor H&H DVT Px Coumadin Code Status Full code Admission and Anticipated Discharge Date Admission Date: January 27, 2022 Subjective 71-year-old woman with history of atrial fibrillation on warfarin Status post DANAE with cardioversion, tachybradycardia syndrome status post pacemaker, chronic diastolic heart failure, history of bypass, COPD, depression, chronic anemia who presented after mechanical fall onto the buttocks and pain Patient seen and examined today Patient reports buttock pain is controlled. Pain usually occurs with sitting or laying supine Denies any headache, dizziness Denies any nausea, vomiting, abdominal pain Denied any cough, chest pain or shortness of breath Physical Exam Constitutional: + well hydrated; no acute distress Eyes: PERRL, conjunctivae normal, anicteric sclerae ENMT: external ear and nose normal, oropharynx normal Hearing deficit Respiratory: normal respiratory effort, lungs clear to auscultation Cardiovascular: Rate/Rhythm: + irregularly irregular S1 S2 Gastrointestinal (Abdomen): normal bowel sounds, soft, nontender, no hepatosplenomegaly Musculoskeletal: Tenderness of coccygeal area Neurologic: PERRL, EOMI, accommodation nl, no face palsy, no dysarthria Psychiatric: A+Ox3, euthymic affect Results & Data Results & Data ([facility]) Vital Signs (Past 12 Hours) Vital Signs Temp Pulse Pulse Resp BP Pulse Ox 01/28/22 07:48 36.5 C 77 18 108/72 97 01/28/22 07:12 70 01/28/22 03:00 36.8 C 75 18 98/63 L 97 01/27/22 23:36 76 01/27/22 22:43 36.6 C 84 18 113/72 99 Laboratory Results Abnormal lab results 01/28/22 01/28/22 01/28/22 Range/Units 06:01 06:01 06:01 RBC 2.89 L (4.2-5.4) M/uL Hgb 8.8 L (12.0-16.0) g/dL Hct 26.6 L (37-47) % RDW Std Deviation 58.7 H (36.4-46.3) fL RDW Coeff of Saman 17.3 H (11.5-14.5) % PT 27.3 H (9.0-12.0) Seconds INR 2.7 H (0.9-1.1) Chloride 110 H (98-107) mmol/L BUN/Creatinine Ratio 32.8 H (10-20) Glucose 66 L (70-99(Fasting)) mg/dl Calcium 7.3 L (8.5-10.1) mg/dl (1) A-fib Atrial fibrillation type: permanent Qualified Code(s): I48.21 - Permanent atrial fibrillation
[2022-01-28] MEDS: DIGOXIN 0.125 MG TAB PO SCH (16:33)
[2022-01-28] MEDS: WARFARIN SOD 1 MG TAB PO SCH (16:33)
[2022-01-28] MEDS: FUROSEMIDE 80 MG TAB PO SCH (16:33)
[2022-01-28] MEDS: LIDOCAINE 5% 1 PATCH TD SCH (21:05)
[2022-01-28] MEDS: POTASSIUM CHLORIDE CRTAB 20 MEQ TABCR PO SCH (21:08)
[2022-01-28] MEDS: MONTELUKAST SODIUM 10 MG TABLET PO SCH (21:09)
[2022-01-29] MEDS: ACETAMINOPHEN 500 MG TAB PO SCH ×3 (00:12→15:37)
[2022-01-29 07:37] LABS: Hematocrit (blood only) 27.5 % (37-47); Hemoglobin 8.9 g/dL (12.0-16.0); Mean Corpuscular Hemoglobin 30.2 pg (25-34); Mean Corpuscular Hgb Conc 32.4 g/dL (32-36); Mean Corpuscular Volume 93.2 fL (80-100); Mean Platelet Volume 9.5 fL (7.4-10.4); Platelet Count 254 K/uL (130-400); RDW Coefficient of Variation 17.1 % (11.5-14.5); RDW Standard Deviation 58.7 fL (36.4-46.3); Red Blood Count 2.95 M/uL (4.2-5.4); White Blood Count 4.93 K/uL (4.8-10.8)
[2022-01-29 07:48] LABS: INR 2.3 (0.9-1.1); Prothrombin Time 23.9 Seconds (9.0-12.0)
[2022-01-29 08:02] LABS: BUN Creatinine Ratio 34.7 (10-20); Calcium 7.2 mg/dl (8.5-10.1); Creatinine Clr Calc Pharmacy 55.5 ml/min; Est GFR (African American) 94.3 ml/min; Est GFR (Non-African American) 81.3 ml/min; Potassium 4.4 mmol/L (3.5-5.1)
[2022-01-29] MEDS: FERROUS SULFATE 325 MG TAB PO SCH ×2 (08:13→20:49)
[2022-01-29] MEDS: POTASSIUM CHLORIDE CRTAB 20 MEQ TABCR PO SCH ×2 (08:13→20:49)
[2022-01-29] MEDS: ASCORBIC ACID 500 MG TAB PO SCH ×2 (08:14→20:51)
[2022-01-29] MEDS: MAGNESIUM OXIDE 400 MG TAB PO SCH (08:14)
[2022-01-29] MEDS: FUROSEMIDE 80 MG TAB PO SCH ×2 (08:14→17:49)
[2022-01-29] MEDS: METOPROLOL SUCC 25MG EXT REL TAB PO SCH ×2 (08:15→20:51)
[2022-01-29] MEDS: SERTRALINE HCL 50 MG TABLET PO SCH (08:15)
[2022-01-29] MEDS: MULTIVITAMIN CHEWABLE TAB PO SCH (08:15)
[2022-01-29] MEDS: CHOLECALCIFEROL 1,000 UNITS 25 MCG TAB PO SCH (08:15)
[2022-01-29] MEDS: NEOMYCIN/POLYMYX/BACITR OINT 15 GM TUBE EXT SCH ×2 (08:16→20:52)
[2022-01-29] MEDS: FLUTICASONE/VILANTEROL 200/25MCG 14 PUFFS/INHALER INH SCH (08:16)
--- NOTE | 2022-01-29 09:54 | Hospitalist Progress Note ---
Date of Service January 29, 2022 Assessment & Plan (1) Fall: (2) Fractured coccyx: Plan: 71 yr female with H/O Persistent atrial fibrillation, on warfarin, s/p DANAE guided DCCV in 10/2018 with recurrent atrial fibrillation s/p cardioversion 05/05/2020, 09/05/2020 with recurrent atrial fibrillation 12/2020, tachybrady syndrome s/p PPM, chronic diastolic CHF, history of gastric bypass, COPD, depression, chronic anemia presented to ER with complaint of mechanical fall o nto buttocks 3 days prior with pain to buttocks and left upper leg/hip Sacrococcygeal fracture L5 advanced disc disease, grade 1 anterolisthesis at L5-S1 Lumbar spinal stenosis with radiculopathy H/O Recent Fall --CT L Spine: There is no evidence of acute fracture or malalignment involving the lumbar spine. There are bilateral pars defects at L5 with advanced disc spac e narrowing and grade 1 anterolisthesis at L5-S1. --CT Pelvis: There is a minimally angulated fracture at the sacrococcygeal junction which is age indeterminant but new from 09/02/2021. No additional fracture is identified involving the hips or bony pelvis. --CT Abd/pelvis: There is no evidence of solid organ injury in the abdomen or pelvis. 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 --MRI Lumbar Spine: Left sacral alar fracture is partially visualized with associated marrow edema. There is no evidence of acute fracture or malalignment involving the lumbar spine. There are bilateral pars defects of L5 with advanced disc space narrowing and grade 1 anterolisthesis at L5-S1. Left lateral disc bulge at L5-S1 continues to severe left-sided subarticular and neural foraminal stenosis and likely impinges on the exiting left L5 nerve root. Mild spondylotic change at the remaining lumbar levels. See discussion for detailed level by level analysis. Fall precautions Pain control. Continue scheduled tylenol and lidocaine patch Had not required prn oxycodone for days. So it was discontinued Ortho eval appreciated. No surgical treatment recommended at this time PT/OT recommends SNF (3) Hypokalemia: Plan: K was 3.4 on admission. K is 4.4 today Continue home lasix and potassium (4) Acute on chronic diastolic (congestive) heart failure: Plan: Patient reports increased weight gain and B/L LE edema past couple of days. Also missed diuretic doses Last Echo 07/2021: EF: 60-65%, grade 2 diastolic dysfunction, moderate tricuspid regurgitation Continue fluid restriction Low-sodium diet Monitor I's and O's, daily weight Home lasix was held due to hypotension Patient has h/o hypotension per outpatient dress draper's notes. BP runs low. Continue home lasix (5) A-fib: (6) Supratherapeutic INR: Plan: Chronic atrial fibrillation on warfarin Per outpatient Anticoagulation note, patient was on warfarin 2.5mg sun tue thur and 1.25mg on other days INR: 3.5>2.7 >3>2.7>2.3 Continue metoprolol succinate, digoxin Currently on lower warfarin dose here at 1mg daily. Will change to 1.25mg daily and monitor (7) Tachy-corin syndrome: Plan: S/P pacemaker (8) COPD (chronic obstructive pulmonary disease): Plan: No acute exacerbation Continue home inhalers (9) Anemia: Plan: Chronic anemia Hb ranges 9-10s Hb is 8.9 today Monitor H&H DVT Px Coumadin Code Status Full code Admission and Anticipated Discharge Date Admission Date: January 27, 2022 Subjective 71-year-old woman with history of atrial fibrillation on warfarin Status post DANAE with cardioversion, tachybradycardia syndrome status post pacemaker, chronic diastolic heart failure, history of bypass, COPD, depression, chronic anemia who presented after mechanical fall onto the buttocks and pain Patient seen and examined today Patient reports buttock pain is controlled. Worse when sitting or laying supine. Denies any headache, dizziness Denies any nausea, vomiting, abdominal pain Denied any cough or shortness of breath Reported mild left chest pain for a few seconds this morning, sharp. She was not sure if it was related to activity at the time. Patient has old healed left anterior rib fractures Physical Exam Constitutional: + well hydrated; no acute distress Eyes: PERRL, conjunctivae normal, anicteric sclerae ENMT: external ear and nose normal, oropharynx normal Respiratory: normal respiratory effort, lungs clear to auscultation Cardiovascular: Rate/Rhythm: + irregularly irregular S1 S2 Gastrointestinal (Abdomen): normal bowel sounds, soft, nontender, no he patosplenomegaly Musculoskeletal: No pedal edema Neurologic: PERRL, EOMI, accommodation nl, no face palsy, no dysarthria Psychiatric: A+Ox3, euthymic affect Results & Data Results & Data ([facility]) Vital Signs (Past 12 Hours) Vital Signs Temp Pulse Resp BP Pulse Ox 01/29/22 07:44 36.8 C 76 20 112/70 96 01/29/22 03:18 36.5 C 73 16 107/60 96 01/28/22 23:09 36.6 C 72 16 101/59 L 97 Laboratory Results Abnormal lab results 01/29/22 01/29/22 01/29/22 Range/Units 06:59 06:59 06:59 RBC 2.95 L (4.2-5.4) M/uL Hgb 8.9 L (12.0-16.0) g/dL Hct 27.5 L (37-47) % RDW Std Deviation 58.7 H (36.4-46.3) fL RDW Coeff of Saman 17.1 H (11.5-14.5) % PT 23.9 H (9.0-12.0) Seconds INR 2.3 H (0.9-1.1) Chloride 108 H (98-107) mmol/L BUN 26 H (6-23) mg/dl BUN/Creatinine Ratio 34.7 H (10-20) Calcium 7.2 L (8.5-10.1) mg/dl (1) A-fib Atrial fibrillation type: permanent Qualified Code(s): I48.21 - Permanent atrial fibrillation
[2022-01-29] MEDS: DIGOXIN 0.125 MG TAB PO SCH (15:40)
[2022-01-29] MEDS ORDERED: WARFARIN SOD 1.25 MG TAB PO SCH (16:00)
[2022-01-29] MEDS: MONTELUKAST SODIUM 10 MG TABLET PO SCH (20:50)
[2022-01-29] MEDS: LIDOCAINE 5% 1 PATCH TD SCH (20:53)
[2022-01-30] MEDS: ACETAMINOPHEN 500 MG TAB PO SCH ×2 (00:35→08:30)
[2022-01-30 06:33] LABS: INR 1.9 (0.9-1.1); Prothrombin Time 19.3 Seconds (9.0-12.0)
[2022-01-30] MEDS: FLUTICASONE/VILANTEROL 200/25MCG 14 PUFFS/INHALER INH SCH (08:24)
[2022-01-30] MEDS: NEOMYCIN/POLYMYX/BACITR OINT 15 GM TUBE EXT SCH (08:24)
[2022-01-30] MEDS: ASCORBIC ACID 500 MG TAB PO SCH (08:24)
[2022-01-30] MEDS: CHOLECALCIFEROL 1,000 UNITS 25 MCG TAB PO SCH (08:25)
[2022-01-30] MEDS: FERROUS SULFATE 325 MG TAB PO SCH (08:25)
[2022-01-30] MEDS: POTASSIUM CHLORIDE CRTAB 20 MEQ TABCR PO SCH (08:25)
[2022-01-30] MEDS: MAGNESIUM OXIDE 400 MG TAB PO SCH (08:25)
[2022-01-30] MEDS: MULTIVITAMIN CHEWABLE TAB PO SCH (08:26)
[2022-01-30] MEDS: METOPROLOL SUCC 25MG EXT REL TAB PO SCH (08:26)
[2022-01-30] MEDS: SERTRALINE HCL 50 MG TABLET PO SCH (08:26)
--- NOTE | 2022-01-30 10:23 | Discharge Summary ---
Date of Service January 30, 2022 Admission HPI Per Admitting Provider Patient is 71-year-old female with PMH persistent atrial fibrillation, on warfarin, s/p DANAE guided DCCV in 10/2018 with recurrent atrial fibrillation s/p cardioversion 05/05/2020, 09/05/2020 with recurrent atrial fibrillation 12/2020, tachybrady syndrome s/p PPM, chronic diastolic CHF, history of gastric bypass, COPD, depression, chronic anemia presented to ER with complaint of fall and buttock pain 3 days ago. Patient reports chronic loose stools secondary to history of gastric bypass. She states she tried to get out of bed as she felt like was going to have a bowel movement and ended up having loose bowel movement as she was getting out of bed and slipped in stool causing her to fall on her buttocks. She denies hitting head or any loss of consciousness or chest pain or shortness of breath. Patient states she was unable to get herself up off floor for an hour. She reports she has been walking with a cane prior to fall, and since fall has been really relying on cane secondary to left upper leg and butt ock pain. She reports initially low back pain however that has improved. Complains of buttock pain and left posterior upper leg pain, aggravated with movement and walking. She reports she was able to work at [employer] yesterday however had significant pain to left upper leg and buttock. Denies loss of control of bowels or bladder, saddle paresthesias. Reports chronic left knee pain and stiffness and feels this is at baseline. She has noticed increased bilateral lower extremity edema past several days. Patient states has had 8 pound weight gain in the past 1 to 2 weeks. She does admit to missing diuretic dose yesterday and to consuming greater than 64 ounces fluids daily. Reports chronic shortness of breath with exertion at baseline, denies any increase shortness of breath, chest pain, palpitations. Reports chronic rash to legs bilaterally and uses steroid cream. Denies fever/chills, diaphoresis, N/V/D/C, DANIEL, dizziness, syncope, vision changes, neck pain, CP, SOB, orthopnea, cough, sore throat, choking, otalgia, rhinorrhea, abdominal pain, paresthesias, new rashes, urinary symptoms. Admission Exam Per Admitting Provider General: no distress, WDWN Head: normocephalic, atraumatic Eyes: PERRL, EOM's intact, conjunctiva non-injected, anicteric ENT: normal inspection external ears, nose, mucous membranes moist Neck: supple, trachea midline, non-tender Lungs: clear, no respiratory distress, no wheezing/rhonchi/rales CV: irregularly irregular, no JVD, 2+ pretibial edema Abd: normal BS, soft, non-tender Back: no discoloration, no thoracic or lumbar spinous process tenderness to palpation; Buttocks: +tenderness to palpation midline buttock and left buttock Ext: no cyanosis, no calf tenderness; LLE: +ecchymosis left lateral hip with tenderness to palpation, able to flex and extend left hip and knee with tenderness reproduced to buttock, distal pulses palpable, sensation to light touch intact Neuro: A&O x 3, no focal deficits noted, normal affect Skin: warm, dry, +excoriations bilateral inner thighs Principal Diagnosis Fall Sacrococcygeal fracture Discharge Exam Constitutional + well hydrated; no acute distress Eyes PERRL, conjunctivae normal, anicteric sclerae ENMT external ear and nose normal, oropharynx normal Respiratory normal respiratory effort, lungs clear to auscultation Cardiovascular Rate/Rhythm: + irregularly irregular S1 S2 Gastrointestinal (Abdomen) normal bowel sounds, soft, nontender, no hepatosplenomegaly Musculoskeletal No pedal edema Neurologic PERRL, EOMI, accommodation nl, no face palsy, no dysarthria Psychiatric A+Ox3, euthymic affect Discharge Data Allergies Allergy/AdvReac Type Severity Reaction Status Date / Time oxycodone AdvReac Intermediate GI SYMPTOMS Verified 01/25/22 14:59 Consultations 01/25/22 18:53 ED Decision to Admit Stat 01/26/22 10:14 Consult Orthopedic Surgery Routine Ordered Studies 01/25/22 14:43 CT abd pelvis IV con only Stat CT pelvis wo con Stat 01/25/22 14:46 CT lumbar spine w con Stat Lung bases: The heart is enlarged and without pericardial effusion. Pacemaker leads are noted. A fat-containing Bochdalek hernia is seen at the left lung base. There is a small right pleural effusion with dependent atelectasis. No airspace consolidation is seen typical for pneumonia. Liver: The contrast-enhanced liver is normal in size, contour, and attenuation. There is no intrahepatic biliary ductal dilatation. The hepatic veins and portal veins are patent. Gallbladder: Surgically absent noting clips in the gallbladder fossa. Spleen: Normal in size and attenuation. Pancreas: Moderately atrophic and grossly unremarkable. Adrenal glands: Unremarkable. Kidneys: The contrast enhanced kidneys demonstrate mild cortical atrophy and are without hydronephrosis. The kidneys enhance symmetrically. Abdominal vasculature: The abdominal aorta is normal in course and caliber noting moderate to advanced atherosclerotic calcification. Stomach and bowel: There is a small hiatal hernia. There is rectosigmoid fecal retention and moderate to severe constipation. No bowel obstruction is identified. The appendix is not identified and reported surgically absent. Peritoneum/retroperitoneum: There is no intraperitoneal free air or abdominal ascites. No retroperitoneal hematoma is identified. Lymphadenopathy: None. Pelvic viscera: The bladder is partially decompressed around a Villalobos catheter. Foci of intraluminal gas are noted. Uterine fibroids are suggested. No adnexal lesion is seen. Skeletal structures: The skeletal structures are osteopenic. No lytic or blastic lesions are seen. There are chronic/healed right-sided rib fractures. Soft tissues: There is body wall edema. BONY PELVIS: There is a minimally angulated fracture at the sacrococcygeal junction seen on sagittal image #[address] No additional fracture is seen involving the bony pelvis. The proximal femora appear intact. 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 Sclerotic change is noted in the sacroiliac joints. Moderate degenerative changes noted in the hips. LUMBAR SPINE: Vertebral body height is maintained throughout the lumbar spine. There is no evidence of acute fracture or malalignment involving the lumbar spine. There are bilateral pars defects at L5 with advanced disc space narrowing, endplate sclerosis, and 9 mm of anterolisthesis at L5-S1. There is left lateral disc bulge at L5-S1. This may impinge on the exiting left L5 nerve root. Alignment is otherwise preserved. Anterior and lateral marginal osteophytes are seen throughout. The transverse and spinous processes are intact. Mild to moderate disc space narrowing is noted at the remaining lumbar levels. There is no CT evidence of large disc herniation or high-grade central canal stenosis. There is fatty atrophy of the paraspinous musculature. IMPRESSION: 1. There is no evidence of solid organ injury in the abdomen or pelvis. 2. There is no evidence of acute fracture or malalignment involving the lumbar spine. 3. There is a minimally angulated fracture at the sacrococcygeal junction which is age indeterminant but new from 09/02/2021. Correlate for point tenderness. 4. No additional fracture is identified involving the hips or bony pelvis. 5. There are bilateral pars defects at L5 with advanced disc space narrowing and grade 1 anterolisthesis at L5-S1. 6. There is rectosigmoid fecal retention and moderate to severe constipation. No bowel obstruction is seen. 7. 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 8. Cardiomegaly and small right pleural effusion. 9. Additional findings as above. 01/26/22 10:16 MR lumbar spine wo con Routine Lumbar spine: Marrow signal intensity is heterogeneous. Vertebral body height is maintained throughout the lumbar spine. There is no MRI evidence of acute or healing fracture. There are bilateral pars defects at L5 with 9 mm of anterolisthesis at L5-S1. Alignment is otherwise preserved. Tiny anterior and lateral marginal osteophytes are seen throughout. The transverse and spinous processes appear intact. Chronic degenerative endplate changes throughout the visualized thoracolumbar spine. There is mild degenerative endplate edema seen at L2-L3 and L5-S1. No destructive bony lesion is identified. Intervertebral discs: Disc desiccation and loss of height is seen throughout the lumbar spine. Loss of height is severe at L5-S1 and at most mild at the remaining levels. Spinal cord: The visualized spinal cord is normal in morphology and signal intensity. The conus medullaris terminates at the level of L1. The nerve roots of the cauda equina are normal in morphology. L1-L2: Unremarkable. L2-L3: There is minimal posterior disc bulge. This abuts the transiting nerve roots. The central canal and neural foramina are clear. L3-L4: There is minimal disc bulge. The central canal and neural foramina are patent. Mild facet arthropathy is of no consequence. L4-L5: Unremarkable. Mild facet arthropathy is of no consequence. L5-S1: There is minimal posterior disc bulge. The central canal is clear. There is left lateral disc bulge seen on axial image #5 of the lower axial T2-weighted sequence. This contributes to subarticular stenosis and likely impinges on the exiting left L5 nerve root. There is a mild right-sided subarticular stenosis. In conjunction with facet arthropathy there is severe left and mild right-sided neural foraminal stenosis. Sacrum: Left sacral alar fracture is partially visualized with associated marrow edema. Soft tissues: There is mild presacral soft tissue edema. There is fatty atrophy of the paraspinous musculature. The retroperitoneal structures are grossly unremarkable but incompletely evaluated. IMPRESSION: 1. Left sacral alar fracture is partially visualized with associated marrow edema. 2. There is no evidence of acute fracture or malalignment involving the lumbar spine. 3. There are bilateral pars defects of L5 with advanced disc space narrowing and grade 1 anterolisthesis at L5-S1. 4. Left lateral disc bulge at L5-S1 continues to severe left-sided subarticular and neural foraminal stenosis and likely impinges on the exiting left L5 nerve root. 5. Mild spondylotic change at the remaining lumbar levels. See discussion for detailed level by level analysis. Hospital Course (1) Fall: (2) Fractured coccyx: 71 yr female with H/O Persistent atrial fibrillation, on warfarin, s/p DANAE guided DCCV in 10/2018 with recurrent atrial fibrillation s/p cardioversion 05/05/2020, 09/05/2020 with recurrent atrial fibrillation 12/2020, tachybrady syndrome s/p PPM, chronic diastolic CHF, history of gastric bypass, COPD, depression, chronic anemia presented to ER with complaint of mechanical fall onto buttocks 3 days prior with pain to buttocks and left upper leg/hip Sacrococcygeal fracture L5 advanced disc disease, grade 1 anterolisthesis at L5-S1 Lumbar spinal stenosis with radiculopathy H/O Recent Fall --CT L Spine: There is no evidence of acute fracture or malalignment involving the lumbar spine. There are bilateral pars defects at L5 with advanced disc space narrowing and grade 1 anterolisthesis at L5-S1. --CT Pelvis: There is a minimally angulated fracture at the sacrococcygeal junction which is age indeterminant but new from 09/02/2021. No additional fracture is identified involving the hips or bony pelvis. --CT Abd/pelvis: There is no evidence of solid organ injury in the abdomen or pelvis. 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 --MRI Lumbar Spine: Left sacral alar fracture is partially visualized with associated marrow edema. There is no evidence of acute fracture or malalignment involving the lumbar spine. There are bilateral pars defects of L5 with advanced disc space narrowing and grade 1 anterolisthesis at L5-S1. Left lateral disc bulge at L5-S1 continues to severe left-sided subarticular and neural foraminal stenosis and likely impinges on the exiting left L5 nerve root. Mild spondylotic change at the remaining lumbar levels. See discussion for detailed level by level analysis. Was evaluated by surgeon and conservative management recommended Pain was controlled with tylenol and lidocaine patch [facility] ([facility]) Hypokalemia: K was 3.4 on admission. Repleted Continue home lasix and potassium (4) Acute on chronic diastolic (congestive) heart failure: Patient reports increased weight gain and B/L LE edema past couple of days. Also missed diuretic doses Last Echo 07/2021: EF: 60-65%, grade 2 diastolic dysfunction, moderate tricuspid regurgitation Low-sodium diet Patient has h/o hypotension per outpatient dehydration unit operator's notes. BP runs low normal. Continue home lasix (5) A-fib: (6) Supratherapeutic INR: Chronic atrial fibrillation on warfarin Per outpatient Anticoagulation note, patient was on warfarin 2.5mg sun e thur and 1.25mg on other days INR: 3.5>2.7 >3>2.7>2.3>1.9 Continue metoprolol succinate, digoxin Continue home dose (7) Tachy-corin syndrome: S/P pacemaker (8) COPD (chronic obstructive pulmonary disease): No acute exacerbation Continue home inhalers (9) Anemia: Chronic anemia Hb ranges 9-10s Last Hb is 8.9 today Monitor H&H Total Time Total Time Spent Total Time Spent (In Minutes): 50 Total Time Includes: Examination of the Patient, Discharge Planning and Medication Reconciliation Discharge Plan Discharge Items Patient Disposition: Transfer [facility] Fac Reason For Visit: FALL Discharge Diagnosis: Fall Sacrococcygeal fracture Activity: As commented below Activity Comment: Per PT recommendations Non-emergency contact: Primary Care Provider Call non-emergency contact if: you have any medication questions Follow-up/Referrals: Rsusell Olvera DO [Primary Care Provider] - Diet: Heart Healthy Addtl Attending Provider Instructions: Mrs Higgins. You came to the hospital after a fall complaining of buttock pain. You were evaluated and found to have sacrococcygeal fracture. This did not require surgical treatment. [facility]. Please continue taking your home medications including your warfarin 2.5mg on Sun, Tue and Thur and 1.25mg on other days. Please ensure follow up with your Doctor Pending Studies at Discharge: No Stand-Alone Forms: My [facility] Skilled Items Patient informed of condition?: Yes DNR: No Discharge Level of Care: Skilled Communicable Disease: No Discharge Prognosis: Stable Lines: None Urinary Catheter: No Medications and DC Order Prescriptions: New acetaminophen [Tylenol Extra Strength] 500 mg Tablet 1,000 mg PO Q8H PRN (Reason: pain) Qty: 50 RF: 0 lidocaine 5 % Adhesive Patch,Medicated 1 patch transdermal QPM Qty: 20 RF: 0 potassium chloride 20 mEq Tablet,Er Particles/Crystals 20 meq PO DAILY 30 Days Qty: 30 RF: 0 Continued metolazone 2.5 mg tablet 2.5 mg PO UD PRN (Reason: Edema) RF: 0 furosemide 40 mg Tablet 80 mg PO BID 30 Days Qty: 120 RF: 0 fluticasone propion-salmeterol [Advair Diskus] 250-50 mcg/dose Blister With Device 1 inh INHALATION BID 30 Days Qty: 60 RF: 0 ondansetron HCl 4 mg Tablet 4 mg PO Q12H PRN (Reason: NAUSEA/VOMITING) Qty: 15 RF: 0 warfarin 2.5 mg Tablet See Rx Instructions .ROUTE .COMPLEX Qty: 30 RF: 0 zafirlukast [Accolate] 20 mg tablet 20 mg PO BID 30 Days Qty: 60 RF: 0 digoxin [Digitek] 125 mcg (0.125 mg) tablet 125 mcg PO QAM 30 Days Qty: 30 RF: 0 metoprolol succinate 25 mg tablet extended release 24 hr 12.5 mg PO HS 30 Days Qty: 15 RF: 0 metoprolol succinate 25 mg tablet extended release 24 hr 25 mg PO DAILY 30 Days Qty: 30 RF: 0 albuterol sulfate [Ventolin HFA] 90 mcg/actuation Hfa Aerosol Inhaler 2 puff INHALATION QID PRN (Reason: Shortness Of Breath Or Wheezing) Qty: 8.5 RF: 0 sertraline [Zoloft] 50 mg Tablet 50 mg PO QAM 30 Days Qty: 30 RF: 0 magnesium 200 mg Tablet 200 mg PO DAILY 30 Days Qty: 30 RF: 0 Flintstones Tab Chew 100 mcg Tablet,Chewable 1 tab PO QAM 30 Days Qty: 30 RF: 0 cholecalciferol (vitamin D3) [Vitamin D3] 2,000 unit Capsule 2,000 unit PO QAM 30 Days Qty: 30 RF: 0 Vitron-C 65 mg iron- 125 mg Tablet,Delayed Release (Dr/Ec) 1 tab PO BID 30 Days Qty: 60 RF: 0 Discontinued potassium chloride 10 mEq capsule, extended release 10 meq PO DAILY RF: 0 Discharge Orders: Discharge Order (Routine); Ordered 01/30/22 Ordered By: Luz Maria Bae Admission Data Admit Date/Time: 01/27/22 08:42 Attending Provider: Luz Maria Bae I. Admit Provider: Carlos Monsivais Primary Care Provider: Russell Olvera Other Providers: Carlos Monsivais ; David Payne ; Canelo Ballesteros at [place] ; Hima Mclain Other Interventions: Discharge Summary Assessment (RN) Last Done: 01/30/22 10:37
[2022-01-30] MEDS: FUROSEMIDE 80 MG TAB PO SCH (10:31)
== END 2022-01-30 10:43 | DRG 551 ==
LOC: 2N 14:20 → ED 14:20 → SUATTDRO 18:22 → 2N 20:54

== ENCOUNTER 2022-02-22 13:41 | Inpatient (IN) ==
--- NOTE | 2022-02-22 15:01 | Emergency Department Note ---
Impression & Plan Left-sided chest pain, A-fib, Generalized weakness ED Provider Note INFORMANT: Patient ED PROVIDER(S): Hiren Romo MD CHIEF COMPLAINT: Chest pain PLAN: Disposition: Admitted Condition: Good Outpatient prescription management: none Referral: None MEDICAL DECISION MAKING: Patient presented because of left-sided chest pain. She also notes that she has been increasingly weak and having difficulty getting around since discharge from [facility]. Patient had no significant abnormalities noted on her ECG to suggest ischemia. Patient's blood work including her INR were unremarkable. INR was 1.9. Patient's troponin was negative. She was given IV Tylenol. She was kept NPO. The patient had a chest x-ray did not show any significant abnormality. On reassessment the patient was stable. I discussed further management in the hospital given her chest pain. Patient was in agreement that she is not doing well at home. Consultation was made with the [facility] hospitalist service. Patient was evaluated in the ER for further management. Triage Nursing notes reviewed and agree them. Vital Signs: reviewed and remarkable for no significant abnormalities Differential diagnosis: Cardiac ischemia, aortic dissection, pulmonary embolism, pneumothorax, pneumonia, pericarditis, myocarditis, esophageal rupture, GERD, cholecystitis, pancreatitis, musculoskeletal, as well as other pathologies. Diagnostics interpreted by me: ECG: Twelve-lead ECG reveals atrial fibrillation at 93 bpm. Septal Q waves present. Demand pacer spikes present. No ST elevation. Cardiac Monitoring: Cardiac monitoring ordered by me: The patient was placed on continuous cardiac monitoring and observed. It revealed fibrillation with occasional paced beats at 83 beats per minute. Imaging studies: Chest x-ray. Findings: A chest x-ray was performed and revealed no pneumothorax, effusion, infiltrate, pulmonary edema, free air under the diaphragm, or wide mediastinum. Impression: No acute disease. HPI: The patient is a 71 year old female who presents to the Emergency Room with complaints of left-sided chest. This started this and is persist. The patient also notes the following associated symptoms, headache, palpitations, generalized weakness over the last several days. Patient was referred to the ER by Willie for evaluation. She does take warfarin for A. fib. Recently was in [facility] and states she has been having increasing difficulty getting around and not doing very well at home. The patient has taken no medication for relieving factors. Current pain is rated as 5/10. Pt denies LOC, headache, fevers, chills, diaphoresis, visual changes, neck pain, b reathing difficulties, nausea, vomiting, abdominal pain, back pain, melena, hematochezia, urinary symptoms, numbness, lymphadenopathy, rash, or other complaints. ROS: See above HPI for pertinent positives & negatives. A total of 10 systems reviewed and were otherwise negative. PAST MEDICAL HISTORY:See Below , A. fib PAST SURGICAL HISTORY:See Below, pacemaker FAMILY HISTORY:See Below SOCIAL HISTORY:See Below, non-smoker HOME MEDICATIONS:See Below ALLERGIES:See Below VITALS:See Below PHYSICAL EXAMINATION: GENERAL: Awake, alert, well-appearing, in no distress HENT: Normocephalic, atraumatic. Oropharynx unremarkable. EYES: Normal conjunctiva. Sclera non-icteric. NECK: Inspection normal. Non-tender. Supple. No nuchal rigidity. FROM. No masses. RESPIRATORY: Clear to auscultation. No wheezes. No rales. Normal respiratory effort. CARDIAC: Normal rate. Normal rhythm. No murmurs. No rubs. Extremities warm and well perfused. Pulses equal. No JVD. GI: Soft, non-distended. No tenderness to palpation. No rebound or guarding. No masses. RECTAL: Deferred. MUSCULOSKELETAL: Atraumatic. Chest examination reveals pacemaker in left upper chest and left costal margin tenderness. The back is symmetrical on inspection without obvious abnormality. There is no CVA tenderness to palpation. No joint edema. LOWER EXTREMITIES: Calves are equal size bilaterally and non-tender. 1+ edema. No discoloration. NEURO: Normal sensorium. No sensory or motor deficits noted. SKIN: No rash or jaundice noted. Hiren Romo MD Past Med/Surg History Medical History A-fib S/P DANAE guided DCCV 10/2018. Reverted back to afib 03/2020. External DCCV 04/23/20. 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 Beliefs That Will Affect Care: None marital status: Current Living Situation: Spouse Current Living Situation Comment: lives in first floor apartment with has one step to enter current occupational status: employed Feels Safe at Home: Yes Assistive Devices: Cane and Walker Allergies Allergies Allergy/AdvReac Type Severity Reaction Status Date / Time oxycodone AdvReac Intermediate GI SYMPTOMS Verified 02/22/22 16:58 Home Meds Home Medications Medication Instructions Recorded Confirmed metolazone 2.5 mg tablet 2.5 mg PO UD PRN 01/25/22 02/22/22 furosemide 40 mg tablet 40 mg PO DAILY 02/22/22 02/22/22 metoprolol succinate 25 mg 12.5 mg PO AMHS 02/22/22 02/22/22 tablet,extended release 24 hr potassium chloride 20 mEq 10 meq PO DAILY 02/22/22 02/22/22 tablet,extended release(part/cryst) Previous Rx's Medication Instructions Recorded acetaminophen 500 mg tablet 1,000 mg PO Q8H PRN #50 tab 01/30/22 (Tylenol Extra Strength) albuterol sulfate 90 mcg/actuation 2 puff INHALATION QID PRN #8.5 g 01/30/22 aerosol inhaler (Ventolin HFA) cholecalciferol (vitamin D3) 50 2,000 unit PO QAM 30 Days #30 cap 01/30/22 mcg (2,000 unit) capsule (Vitamin D3) digoxin 125 mcg (0.125 mg) tablet 125 mcg PO QAM 30 Days #30 tab 01/30/22 (Digitek) fluticasone 250 mcg-salmeterol 50 1 inh INHALATION BID 30 Days #60 ea 01/30/22 mcg/dose blistr powdr for inhalation (Advair Diskus) iron,carbonyl 65 mg-vitamin C 125 1 tab PO BID 30 Days #60 tab 01/30/22 mg tablet,delayed release (Vitron-C) lidocaine 5 % topical patch 1 patch TRANSDERMAL QPM #20 ea 01/30/22 magnesium 200 mg tablet 200 mg PO DAILY 30 Days #30 tab 01/30/22 ondansetron HCl 4 mg tablet 4 mg PO Q12H PRN #15 tab 01/30/22 pediatric multivitamin no.7-folic 1 tab PO QAM 30 Days #30 tab 01/30/22 acid 100 mcg chewable tablet (Flintstones Tab Chew) sertraline 50 mg tablet (Zoloft) 50 mg PO QAM 30 Days #30 tab 01/30/22 warfarin 2.5 mg tablet See Rx Instructions .ROUTE 01/30/22 .COMPLEX #30 tab zafirlukast 20 mg tablet (Accolate) 20 mg PO BID 30 Days #60 tab 01/30/22 Results & Data (ED) Vital Signs Vital Signs - 24 hr 02/22/22 13:47 02/22/22 14:11 02/22/22 14:30 Temperature 36.3 C L Temperature Source Temporal Artery Scan Pulse Rate 89 Pulse Rate [Apical] 83 Pulse Rhythm Regular Pulse Strength Normal Respiratory Rate 20 14 Respiratory Effort / Characteristics Non-Labored Respiratory Depth Normal Blood Pressure 106/65 Blood Pressure [Right Arm] 123/70 Blood Pressure Mean 78 Blood Pressure Mean [Right Arm] 87 Blood Pressure Position Sitting Pulse Oximetry 90 Oxygen Delivery Method Room Air Room Air Room Air Sepsis Recent Fever Within 48 Hours No Sepsis New/Unexplained Change in Mental Status No Sepsis Action Taken by Nursing No Action Required 02/22/22 15:00 02/22/22 15:30 02/22/22 16:00 Temperature Temperature Source Pulse Rate 89 88 84 Pulse Rate [Apical] Pulse Rhythm Pulse Strength Respiratory Rate 14 13 21 Respiratory Effort / Characteristics Respiratory Depth Blood Pressure 127/85 118/79 Blood Pressure [Right Arm] Blood Pressure Mean 99 92 Blood Pressure Mean [Right Arm] Blood Pressure Position Pulse Oximetry Oxygen Delivery Method Room Air Sepsis Recent Fever Within 48 Hours Sepsis New/Unexplained Change in Mental Status Sepsis Action Taken by Nursing 02/22/22 16:30 Temperature Temperature Source Pulse Rate 72 Pulse Rate [Apical] Pulse Rhythm Pulse Strength Respiratory Rate 15 Respiratory Effort / Characteristics Respiratory Depth Blood Pressure 110/74 Blood Pressure [Right Arm] Blood Pressure Mean 86 Blood Pressure Mean [Right Arm] Blood Pressure Position Pulse Oximetry 100 Oxygen Delivery Method Room Air Sepsis Recent Fever Within 48 Hours Sepsis New/Unexplained Change in Mental Status Sepsis Action Taken by Nursing Laboratory Data Result diagrams: 02/22/22 15:02 02/22/22 15:02 Lab Results 02/22/22 02/22/22 02/22/22 Range/Units 15: 15: 15:02 WBC 6.63 (4.8-10.8) K/uL RBC 2.91 L (4.2-5.4) M/uL Hgb 9.2 L (12.0-16.0) g/dL Hct 28.4 L (37-47) % MCV 97.6 (80-100) fL MCH 31.6 (25-34) pg MCHC 32.4 (32-36) g/dL RDW Std Deviation 64.8 H (36.4-46.3) fL RDW Coeff of Saman 18.3 H (11.5-14.5) % Plt Count 312 (130-400) K/uL MPV 9.7 (7.4-10.4) fL Immature Gran % (Auto) 0.3 % Neut % (Auto) 66.7 % Lymph % (Auto) 21.1 % [place] % (Auto) 6.9 % Eos % (Auto) 4.7 % Baso % (Auto) 0.3 % Neut # (Auto) 4.42 (1.4-6.5) K/uL Lymph # (Auto) 1.40 (1.2-3.4) K/uL [place] # (Auto) 0.46 (0.11-0.59) K/uL Eos # (Auto) 0.31 (0-0.5) K/uL Baso # (Auto) 0.02 (0-0.2) K/uL Immature Gran # (Auto) 0.02 (0.00-0.02) K/uL PT (9.0-12.0) Seconds INR (0.9-1.1) Sodium 140 (136-145) mmol/L Potassium 4.1 (3.5-5.1) mmol/L Chloride 109 H (98-107) mmol/L Carbon Dioxide 26 (21-32) mmol/L Anion Gap 5 (3-11) BUN 23 (6-23) mg/dl Creatinine 0.71 (0.6-1.2) mg/dl Est Cr Clr Drug Dosing 56.4 ml/min Est GFR ( Amer) 100.7 ml/min Est GFR (Non-Af Amer) 86.9 ml/min BUN/Creatinine Ratio 32.4 H (10-20) Glucose 74 (70-99(Fasting)) mg/dl Calcium 8.0 L (8.5-10.1) mg/dl Total Bilirubin 0.6 (0.2-1.0) mg/dl AST 23 (13-39) U/L ALT 18 (7-52) U/L Alkaline Phosphatase 152 H (34-104) U/L Troponin I High Sens 11.9 (0-14) pg/ml Total Protein 5.3 L (6.0-8.3) gm/dl Albumin 2.9 L (3.4-5.0) gm/dl Globulin 2.4 L (2.5-4.0) gm/dl Albumin/Globulin Ratio 1.2 (0.9-2) Lipase 15 (11-82) U/L SARS-CoV-2, RNA, NAAT (NEGATIVE) 02/22/22 02/22/22 Range/Units 15:02 15:38 WBC (4.8-10.8) K/uL RBC (4.2-5.4) M/uL Hgb (12.0-16.0) g/dL Hct (37-47) % MCV (80-100) fL MCH (25-34) pg MCHC (32-36) g/dL RDW Std Deviation (36.4-46.3) fL RDW Coeff of Saman (11.5-14.5) % Plt Count (130-400) K/uL MPV (7.4-10.4) fL Immature Gran % (Auto) % Neut % (Auto) % Lymph % (Auto) % [place] % (Auto) % Eos % (Auto) % Baso % (Auto) % Neut # (Auto) (1.4-6.5) K/uL Lymph # (Auto) (1.2-3.4) K/uL [place] # (Auto) (0.11-0.59) K/uL Eos # (Auto) (0-0.5) K/uL Baso # (Auto) (0-0.2) K/uL Immature Gran # (Auto) (0.00-0.02) K/uL PT 19.8 H (9.0-12.0) Seconds INR 1.9 H (0.9-1.1) Sodium (136-145) mmol/L Potassium (3.5-5.1) mmol/L Chloride (98-107) mmol/L Carbon Dioxide (21-32) mmol/L Anion Gap (3-11) BUN (6-23) mg/dl Creatinine (0.6-1.2) mg/dl Est Cr Clr Drug Dosing ml/min Est GFR ( Amer) ml/min Est GFR (Non-Af Amer) ml/min BUN/Creatinine Ratio (10-20) Glucose (70-99(Fasting)) mg/dl Calcium (8.5-10.1) mg/dl Total Bilirubin (0.2-1.0) mg/dl AST (13-39) U/L ALT (7-52) U/L Alkaline Phosphatase (34-104) U/L Troponin I High Sens (0-14) pg/ml Total Protein (6.0-8.3) gm/dl Albumin (3.4-5.0) gm/dl Globulin (2.5-4.0) gm/dl Albumin/Globulin Ratio (0.9-2) Lipase (11-82) U/L SARS-CoV-2, RNA, NAAT NEGATIVE (NEGATIVE) Administered Medications Discontinued Medications Acetaminophen (Acetaminophen 1000 Mg/100 Ml Iv) 1,000 mg IV NOW STA Stop: 02/22/22 16:17 Last Admin: 02/22/22 16:30 Dose: 1,000 mg Documented by: [id number] Imaging Data Radiologist's Impression: Chest X-Ray 02/22/22 14:16 XR chest 1V portable HISTORY: 71 years-old Female Chest Pain . Acute atypical chest pain COMPARISON: Chest radiograph 01/07/2022 TECHNIQUE: Supine AP view of the chest FINDINGS: Left subclavian pacer. The cardiac silhouette is mildly enlarged. No pneumothorax, pleural effusion, airspace consolidation or overt pulmonary edema. Healed chronic left-sided rib fractures. Bones appear grossly intact. IMPRESSION: No acute process. ACT 112: Negative or not required by law. The above report was generated using voice recognition software. It may contain grammatical, syntax or spelling errors. Electronically signed by: Roe Bejarano M.D. 02/22/2022 3:58 PM Discharge Plan Visit Data Chief Complaint: Cardiac Assessment Stated Complaint: IRREGULAR HEART BEAT, PAIN NEAR PACEMAKER ED Provider: Hiren Romo Discharge Problem: Left-sided chest pain, A-fib, Generalized weakness Forms Stand Alone Forms: [employer] [facility] [place] Prescriptions Prescriptions: No Action metolazone 2.5 mg tablet 2.5 mg PO UD PRN (Reason: Edema) RF: 0 acetaminophen [Tylenol Extra Strength] 500 mg Tablet 1,000 mg PO Q8H PRN (Reason: pain) Qty: 50 RF: 0 lidocaine 5 % Adhesive Patch,Medicated 1 patch transdermal QPM Qty: 20 RF: 0 fluticasone propion-salmeterol [Advair Diskus] 250-50 mcg/dose Blister With Device 1 inh INHALATION BID 30 Days Qty: 60 RF: 0 ondansetron HCl 4 mg Tablet 4 mg PO Q12H PRN (Reason: NAUSEA/VOMITING) Qty: 15 RF: 0 warfarin 2.5 mg Tablet See Rx Instructions .ROUTE .COMPLEX Qty: 30 RF: 0 zafirlukast [Accolate] 20 mg tablet 20 mg PO BID 30 Days Qty: 60 RF: 0 digoxin [Digitek] 125 mcg (0.125 mg) tablet 125 mcg PO QAM 30 Days Qty: 30 RF: 0 albuterol sulfate [Ventolin HFA] 90 mcg/actuation Hfa Aerosol Inhaler 2 puff INHALATION QID PRN (Reason: Shortness Of Breath Or Wheezing) Qty: 8.5 RF: 0 sertraline [Zoloft] 50 mg Tablet 50 mg PO QAM 30 Days Qty: 30 RF: 0 magnesium 200 mg Tablet 200 mg PO DAILY 30 Days Qty: 30 RF: 0 Flintstones Tab Chew 100 mcg Tablet,Chewable 1 tab PO QAM 30 Days Qty: 30 RF: 0 cholecalciferol (vitamin D3) [Vitamin D3] 2,000 unit Capsule 2,000 unit PO QAM 30 Days Qty: 30 RF: 0 Vitron-C 65 mg iron- 125 mg Tablet,Delayed Release (Dr/Ec) 1 tab PO BID 30 Days Qty: 60 RF: 0 furosemide 40 mg tablet 40 mg PO DAILY RF: 0 metoprolol succinate 25 mg tablet extended release 24 hr 12.5 mg PO AMHS RF: 0 potassium chloride 20 mEq tablet,ER particles/crystals 10 meq PO DAILY RF: 0 Referrals Referrals: Russell Olvera DO [Primary Care Provider] -
[2022-02-22 15:22] LABS: Basophils # (auto) 0.02 K/uL (0-0.2); Basophils % (auto) 0.3 %; Eosinophils # (auto) 0.31 K/uL (0-0.5); Eosinophils % (auto) 4.7 %; Hematocrit (blood only) 28.4 % (37-47); Hemoglobin 9.2 g/dL (12.0-16.0); Immature Granulocytes # (auto) 0.02 K/uL (0.00-0.02); Immature Granulocytes % (auto) 0.3 %; Lymphocytes % (auto) 21.1 %; Mean Corpuscular Hemoglobin 31.6 pg (25-34); Mean Corpuscular Hgb Conc 32.4 g/dL (32-36); Mean Corpuscular Volume 97.6 fL (80-100); Mean Platelet Volume 9.7 fL (7.4-10.4); Monocytes # (auto) 0.46 K/uL (0.11-0.59); Monocytes % (auto) 6.9 %; Neutrophils # (auto) 4.42 K/uL (1.4-6.5); Neutrophils % (auto) 66.7 %; Platelet Count 312 K/uL (130-400); RDW Coefficient of Variation 18.3 % (11.5-14.5); RDW Standard Deviation 64.8 fL (36.4-46.3); Red Blood Count 2.91 M/uL (4.2-5.4); White Blood Count 6.63 K/uL (4.8-10.8)
[2022-02-22 15:29] LABS: INR 1.9 (0.9-1.1); Prothrombin Time 19.8 Seconds (9.0-12.0)
[2022-02-22 15:46] LABS: Albumin Globulin Ratio 1.2 (0.9-2); Albumin Level 2.9 gm/dl (3.4-5.0); BUN Creatinine Ratio 32.4 (10-20); Bilirubin,Total 0.6 mg/dl (0.2-1.0); Creatinine Clr Calc Pharmacy 56.4 ml/min; Est GFR (African American) 100.7 ml/min; Est GFR (Non-African American) 86.9 ml/min; Globulin 2.4 gm/dl (2.5-4.0); Potassium 4.1 mmol/L (3.5-5.1); Total Protein 5.3 gm/dl (6.0-8.3)
--- NOTE | 2022-02-22 15:59 | XRay Report ---
XR chest 1V portable HISTORY: 71 years-old Female Chest Pain . Acute atypical chest pain COMPARISON: Chest radiograph 01/07/2022 TECHNIQUE: Supine AP view of the chest FINDINGS: Left subclavian pacer. The cardiac silhouette is mildly enlarged. No pneumothorax, pleural effusion, airspace consolidation or overt pulmonary edema. Healed chronic left-sided rib fractures. Bones appea r grossly intact. IMPRESSION: No acute process. ACT 112: Negative or not required by law. The above report was generated using voice recognition software. It may contain grammatical, syntax o r spelling errors. Electronically signed by: Roe Bejarano M.D. 02/22/2022 3:58 PM
[2022-02-22] MEDS ORDERED: ACETAMINOPHEN 1000 MG/100 ML IV IV STA (16:16)
[2022-02-22] MEDS ORDERED: WARFARIN SOD 2.5 MG TAB PO STA (17:00)
--- NOTE | 2022-02-22 17:03 | History & Physical Report ---
Date of Service February 22, 2022 Assessment & Plan (1) Left-sided chest pain: (2) Generalized weakness: Plan: Patient is 71-year-old female with PMH persistent atrial fibrillation, on warfarin, s/p DANAE guided DCCV in 10/2018 with recurrent atrial fibrillation s/p cardioversion 05/05/2020, 09/05/2020 with recurrent atrial fibrillation 12/2020, tachybrady syndrome s/p PPM, chronic diastolic CHF, history of gastric bypass, COPD, depression, chronic anemia presented to ER with complaint ofpain x1 day. Left-sided chest pain Generalized weakness Admit to PCU Chest pain is reproducible on exam Initial high-sensitivity troponin negative approximately 8 hours after symptom onset Cycle troponins, obtain echocardiogram Last Echo 07/2021: EF: 60-65%, grade 2 diastolic dysfunction, moderate tricuspid regurgitation given multiple cardiac co morbidities low threshold for cards consult Had pacemaker interrogation today which revealed normal pacemaker function Pacemaker site intact without erythema Fasting lipid panel and A1c in a.m. Chronic Atrial fibrillation History of TBS status post PPM Continue digoxin and metoprolol Continue warfarin, give increased dose of 2.5 mg x 1 this evening Home regimen is 2.5 mg Tuesday, Tuesday and and 1.25 mg all other days INR slightly subtherapeutic today at 1.9 Chronic HFpEF Continue Lasix, metoprolol and potassium Currently euvolemic Patient states her weight is down 8 pounds likely due to lack of oral intake Monitor renal function COPD No acute exacerbation continue home inhalers Chronic anemia Hb ranges 9-10 hgb sable at 9.2 monitor, continue vitron C Depression pt with flat affect, appears to not be doing well at home continue zoloft Recent sacrococcygeal fracture L5-S1 anterolisthesis recent hospitalization in January for fall. She was seen and evaluated by orthopedics recent hospitalization recommendation was conservative treatment Completed a course of subacute rehab, is ambulating with walker Will consult PT OT Pain relatively controlled DVT prophylaxis: Warfarin Dispo: tele, consult case management, patient does not appear to be doing well at home and may need further rehab or placement Full code PCP: Gita Patient was seen and examined in collaboration with Dr. Lopez, please see add endum History of Present Illness Chief Complaint: Chest pain x 1 day. Primary Care Provider: Russell Gita, DO Patient is 71-year-old female with PMH persistent atrial fibrillation, on warfarin, s/p DANAE guided DCCV in 10/2018 with recurrent atrial fibrillation s/p cardioversion 05/05/2020, 09/05/2020 with recurrent atrial fibrillation 12/2020, tachybrady syndrome s/p PPM, chronic diastolic CHF, history of gastric bypass, COPD, depression, chronic anemia presented to ER with complaint ofchest pain x1 day. Of significance patient was recently hospitalized 01/25-01/30 secondary to mechanical fall on her buttocks. She was found to have a minimally angulated fracture at the sacrococcygeal junction which was new. She was also found to have bilateral pars defects at L5 with advanced disc space narrowing and grade 1 anterior listhesis at L5-S1. She was seen and evaluated by orthopedic spine who recommended conservative management. She was then discharged to subacute rehab at [facility]. Patient was at rehab for approximately 9 to 10 days when she states, "my insurance kicked me out." She feels since being discharged to home that she has not been doing well. She has been becoming increasingly weak. She has been ambulating with a walker and denies any recent falls. She states her appetite is poor due to when she eats she becomes nauseous and then stops eating. She lives at home with her who is also disabled and therefore he is unable to help care for her. Therapy has been coming to the home which she feels has been helpful. This morning she woke up with left-sided chest pain. It is below her pacemaker pocket site. She was seen in clinic today for pacemaker interrogation due to chest pain was referred to ED for further evaluation. Pacemaker interrogation revealed normal dual-chamber pacemaker function with stable pacing and sensing thresholds. She was noted to be in atrial fibrillation. She states when she woke up this morning she notices left- sided chest pain. Initially it would come and go but feels it is been more constant. It is nonradiating and rated approximately a 5 out of 10. It is not made worse with deep breathing or coughing. She received Tylenol in ED which did not help symptoms. She denies any prior history of CAD or heart attack. She denies any associated diaphoresis, shortness of breath or nausea. She does have chronic shortness of breath which she feels is at her baseline. She also has chronic lower extremity swelling which she also feels is at her baseline. She does monitor her weight daily due to her history of CHF and currently she states she is down approximately 8 pounds. She has been taking her medications as scheduled. She otherwise denies any recent illness, fever, chills, sweats, lightheadedness, dizziness, syncope, shortness breath at rest, cough, hemoptysis, emesis, hematemesis, abdominal pain, constipation, dysuria, increased urgency or frequency with urination. She does have chronic loose stools secondary to dumping syndrome in setting of prior gastric bypass. In ED patient remained hemodynamically stable. Her lab work was notable for chronic anemia with a stable hemoglobin of 9.2 and 28.4, INR 1.9, BUN and creatinine 23.71, hypoalbuminemia at 2.9, initial troponin high-sensitivity negative, EKG revealed atrial fibrillation, rate controlled and no ST or T wave changes. Her chest x-ray was negative for acute cardiopulmonary abnormality. In ED she did receive some Tylenol. Allergies Allergy/AdvReac Type Severity Reaction Status Date / Time oxycodone AdvReac Intermediate GI SYMPTOMS Verified 02/22/22 16:58 Home Medications Medication Instructions Recorded Confirmed Type metolazone 2.5 mg tablet 2.5 mg PO UD PRN 01/25/22 02/22/22 History acetaminophen 500 mg tablet 1,000 mg PO Q8H PRN #50 tab 01/30/22 02/22/22 Rx (Tylenol Extra Strength) albuterol sulfate 90 mcg/actuation 2 puff INHALATION QID PRN #8.5 g 01/30/22 02/22/22 Rx aerosol inhaler (Ventolin HFA) cholecalciferol (vitamin D3) 50 2,000 unit PO QAM 30 Days #30 cap 01/30/22 02/22/22 Rx mcg (2,000 unit) capsule (Vitamin D3) digoxin 125 mcg (0.125 mg) tablet 125 mcg PO QAM 30 Days #30 tab 01/30/22 02/22/22 Rx (Digitek) fluticasone 250 mcg-salmeterol 50 1 inh INHALATION BID 30 Days #60 ea 01/30/22 02/22/22 Rx mcg/dose blistr powdr for inhalation (Advair Diskus) iron,carbonyl 65 mg-vitamin C 125 1 tab PO BID 30 Days #60 tab 04/16/22 05/09/22 Rx mg tablet,delayed release (Vitron-C) lidocaine 5 % topical patch 1 patch TRANSDERMAL QPM #20 ea 01/30/22 02/22/22 Rx magnesium 200 mg tablet 200 mg PO DAILY 30 Days #30 tab 01/30/22 02/22/22 Rx ondansetron HCl 4 mg tablet 4 mg PO Q12H PRN #15 tab 01/30/22 02/22/22 Rx pediatric multivitamin no.7-folic 1 tab PO QAM 30 Days #30 tab 01/30/22 02/22/22 Rx acid 100 mcg chewable tablet (Flintstones Tab Chew) sertraline 50 mg tablet (Zoloft) 50 mg PO QAM 30 Days #30 tab 01/30/22 02/22/22 Rx warfarin 2.5 mg tablet See Rx Instructions .ROUTE 01/30/22 02/22/22 Rx .COMPLEX #30 tab zafirlukast 20 mg tablet (Accolate) 20 mg PO BID 30 Days #60 tab 01/30/22 02/22/22 Rx furosemide 40 mg tablet 40 mg PO DAILY 02/22/22 02/22/22 History metoprolol succinate 25 mg 12.5 mg PO AMHS 02/22/22 02/22/22 History tablet,extended release 24 hr potassium chloride 20 mEq 10 meq PO DAILY 02/22/22 02/22/22 History tablet,extended release(part/cryst) Past Med/Surg History Medical History A-fib S/P DANAE guided DCCV 10/2018. Reverted back to afib 03/2020. External DCCV 04/23/20. Anticoagulated warfarin daily CHF (congestive heart failure) COPD (chronic obstructive pulmonary disease) Diastolic dysfunction Grade 2 SUTTON (dyspnea on exertion) GERD (gastroesophageal reflux disease) Hard of hearing Hyperlipidemia Tachy-corin syndrome s/p pacemaker insertion 10/2018 with DANAE/cardioversion Tremor Surgical History H/O colonoscopy H/O gastric bypass H/O hernia repair H/O ventral hernia repair History of cardioversion History of cholecystectomy History of esophagogastroduodenoscopy (EGD) History of transesophageal echocardiography (DANAE) Pacemaker [employer] [place]---placed 11/03/[address] Ivey S/P appendectomy S/P small bowel resection Family History Other Cancer Hypertension Lung disease No family history of adverse response to anesthesia Social History Smoking Status: Never smoker Second Hand Exposure: No; Hx Alcohol Use: No Hx Substance Use: No Preferred Language: German Communication Ability: Effective Agency Development Manager Required: No Beliefs That Will Affect Care: None marital status: Current Living Situation: Spouse Current Living Situation Comment: lives in first floor apartment with has one step to enter current occupational status: employed Feels Safe at Home: Yes Assistive Devices: Cane and Walker Review of Systems Review of Systems: All systems reviewed & are unremarkable except as noted in HPI & below Physical Exam Physical Exam: Constitutional: Chronically ill-appearing, female, flat affect, under nourished, vitals as above, NAD, sitting up in bed, hard of hearing Head: Normocephalic, Atraumatic Eyes: PERRL, conjunctivae normal, anicteric sclerae ENMT: external ear and nose normal, oropharynx normal dry membranes, poor dentition Neck: trachea midline, no thyromegaly normal visual inspection Respiratory: normal respiratory effort, lungs clear to auscultation, no wheeze, rales, rhonchi. Normal insp/exp effort, no accessory muscle use Cardiovascular: Regular rate, irregular rhythm, no murmur, bilateral +1 pretibial edema Vessels: no JVD or carotid bruit Chest: normal inspection of chest, left anterior chest wall pacemaker pocket site without erythema, pain to palpation medially and inferiorly to pacemaker pocket site Abdomen: normal bowel sounds, soft, nontender, no hepatosplenomegaly Musculoskeletal: no cyanosis or clubbing, active range of motion x4 Skin: no rashes, warm and dry normal turgor Neurologic: PERRL, EOMI, accommodation nl, no face palsy, no dysarthria CN's II-XI intact bilaterally and moves all extremities Psychiatric: A+Ox3, euthymic affect Lymphatic: no cervical or axillary lymphadenopathy : deferred Results & Data Results & Data ([facility]) Vital Signs (Past 12 Hours) Vital Signs Temp Pulse Pulse Resp BP BP Pulse Ox 02/22/22 16:00 84 21 118/79 02/22/22 15:30 88 13 127/85 02/22/22 15:00 89 14 02/22/22 14:30 83 14 123/70 02/22/22 13:47 36.3 C L 89 20 106/65 90 Diagnostic Findings Chest X-Ray 02/22/22 14:16 XR chest 1V portable HISTORY: 71 years-old Female Chest Pain . Acute atypical chest pain COMPARISON: Chest radiograph 01/07/2022 TECHNIQUE: Supine AP view of the chest FINDINGS: Left subclavian pacer. The cardiac silhouette is mildly enlarged. No pneumothorax, pleural effusion, airspace consolidation or overt pulmonary edema. Healed chronic left-sided rib fractures. Bones appear grossly intact. IMPRESSION: No acute process. ACT 112: Negative or not required by law. The above report was generated using voice recognition software. It may contain grammatical, syntax or spelling errors. Electronically signed by: Roe Bejarano M.D. 02/22/2022 3:58 PM Medications Administered Medication List Discontinued Medications Acetaminophen (Acetaminophen 1000 Mg/100 Ml Iv) 1,000 mg IV NOW STA Stop: 02/22/22 16:17 Last Admin: 02/22/22 16:30 Dose: 1,000 mg Documented by: [id number] ECG Rate (beats per minute): 93 Rhythm: atrial fibrillation COVID-19 Results Results COVID-19 Adm Lab Results: RBC 2.91 M/uL (4.2-5.4) L 02/22/22 WBC 6.63 K/uL (4.8-10.8) 02/22/22 Hgb 9.2 g/dL (12.0-16.0) L 02/22/22 Hct 28.4 % (37-47) L 02/22/22 Plt Count 312 K/uL (130-400) 02/22/22 Neutrophils (%) (Auto) 66.7 % 02/22/22 Lymphocytes (%) (Auto) 21.1 % 02/22/22 Monocytes # (Auto) 0.46 K/uL (0.11-0.59) 02/22/22 Eosinophils # (Auto) 0.31 K/uL (0-0.5) 02/22/22 Immature Granulocyte % (Auto) 0.3 % 02/22/22 Neutrophils # (Auto) 4.42 K/uL (1.4-6.5) 02/22/22 Lymphocytes # (Auto) 1.40 K/uL (1.2-3.4) 02/22/22 Monocytes # (Auto) 0.46 K/uL (0.11-0.59) 02/22/22 Eosinophils # (Auto) 0.31 K/uL (0-0.5) 02/22/22 Basophils # (Auto) 0.02 K/uL (0-0.2) 02/22/22 Immature Granulocyte # (Auto) 0.02 K/uL (0.00-0.02) 02/22/22 Na 140 mmol/L (136-145) 02/22/22 K 4.1 mmol/L (3.5-5.1) 02/22/22 Cl 109 mmol/L (98-107) H 02/22/22 CO2 26 mmol/L (21-32) 02/22/22 Anion Gap 5 (3-11) 02/22/22 BUN 23 mg/dl (6-23) 02/22/22 Creatinine 0.71 mg/dl (0.6-1.2) 02/22/22 BUN/Creatinine Ratio 32.4 (10-20) H 02/22/22 Glucose Level 74 mg/dl (70-99(Fasting)) 02/22/22 Ca 8.0 mg/dl (8.5-10.1) L 02/22/22 Total Bilirubin 0.6 mg/dl (0.2-1.0) 02/22/22 AST/SGOT 23 U/L (13-39) 02/22/22 ALT/SGPT 18 U/L (7-52) 02/22/22 Alkaline Phosphatase 152 U/L (34-104) H 02/22/22 Total Protein 5.3 gm/dl (6.0-8.3) L 02/22/22 Albumin 2.9 gm/dl (3.4-5.0) L 02/22/22 Globulin 2.4 gm/dl (2.5-4.0) L 02/22/22 Albumin/Globulin Ratio 1.2 (0.9-2) 02/22/22 INR 1.9 (0.9-1.1) H 02/22/22 SARS-CoV-2, RNA, NAAT NEGATIVE (NEGATIVE) 02/22/22 Chest X-Ray 02/22/22 Code Status & VTE Plan Code Status FULL CODE VTE Prophylaxis Plan VTE Prophylaxis will be ordered: Yes Supervising Physician Co-Signing Physician Notes 71-year-old female with PMH of persistent A. fib, on warfarin, status post DANAE guided DCCV in 2019 with recurrent A. fib status post cardioversion 05/05/2020, 09/05/2020 with recurrent A. fib 12/2020, tachybradycardia syndrome status post PPM, chronic diastolic CHF, history of gastric bypass, COPD, depression and chronic anemia presented to the ED with complaint of chest pain, left-sided, around pacemaker site, since 1 day. Patient described the chest pain as sharp 5/10 in intensity, nonradiating, constant, no association with nausea/diaphoresis/palpitation. Patient appears frail and weak and lives alone. PT/OT, CM to assist with DC planning. Patient complaining of low back pain, continue with home lidocaine patch. Trend troponin, initial troponin negative and EKG with A. fib with no acute ST or T changes. Monitor over telemetry. Continue/resume other home meds as appropriate. Upon examination GENERAL: Alert and oriented x3. NAD, on RA. Looks older than her age, appears weak and frail and ill. HEENT: No pallor, no icterus. Pupils equal, round and reactive to light. Oral mucosa moist. NECK: No JVD, no neck masses. HEART: S1 and S2 heard. Regular rate and rhythm. No murmur, no gallop. Reproducible left-sided chest pain around pacemaker site, no erythema noted. No swelling noted. RESPIRATORY SYSTEM: Normal AP diameter. No accessory muscle use. No wheezing, no crackles. ABDOMEN: Soft, bowel sounds present, nontender, no distention. CENTRAL NERVOUS SYSTEM: No facial droop. Speech is clear. Obeys simple commands. Moves extremities. EXTREMITIES: 1+ BLE edema, no erythema seen. I have seen and examined the patient and have discussed the case with the provider above. I agree with the assessment and plan as stated.
[2022-02-22] MEDS ORDERED: ONDANSETRON INJ 2 MG/ML 2 ML VIAL IV PRN (18:10)
[2022-02-22] MEDS ORDERED: ALUMINUM/MAGNESIUM SUSP 30 ML UDC PO PRN (18:10)
[2022-02-22] MEDS ORDERED: POLYETHYLENE (MIRALAX) 17 GM PACK PO PRN (18:10)
[2022-02-22] MEDS ORDERED: MAGNESIUM HYDROXIDE SUSP 30 ML UDC PO PRN (18:10)
[2022-02-22] MEDS ORDERED: ALBUTEROL HFA 8 GM INHALER INH PRN (18:10)
[2022-02-22] MEDS: METOPROLOL SUCC 25MG EXT REL TAB PO SCH (20:28)
[2022-02-22] MEDS: LIDOCAINE 5% 1 PATCH TD SCH (20:30)
[2022-02-22] MEDS ORDERED: NON-FORMULARY MEDICATION (Iron,Carbonyl-Vitamin C [Vitron-C] 65 mg iron- 125 mg Tablet,Del PO SCH (21:00)
[2022-02-23 04:13] LABS: Basophils # (auto) 0.01 K/uL (0-0.2); Basophils % (auto) 0.2 %; Eosinophils # (auto) 0.33 K/uL (0-0.5); Eosinophils % (auto) 6.6 %; Hematocrit (blood only) 23.6 % (37-47); Hemoglobin 7.6 g/dL (12.0-16.0); Immature Granulocytes # (auto) 0.02 K/uL (0.00-0.02); Immature Granulocytes % (auto) 0.4 %; Lymphocytes # (auto) 1.57 K/uL (1.2-3.4); Lymphocytes % (auto) 31.3 %; Mean Corpuscular Hemoglobin 31.9 pg (25-34); Mean Corpuscular Hgb Conc 32.2 g/dL (32-36); Mean Corpuscular Volume 99.2 fL (80-100); Mean Platelet Volume 9.3 fL (7.4-10.4); Monocytes # (auto) 0.33 K/uL (0.11-0.59); Monocytes % (auto) 6.6 %; Neutrophils # (auto) 2.75 K/uL (1.4-6.5); Neutrophils % (auto) 54.9 %; Platelet Count 260 K/uL (130-400); RDW Coefficient of Variation 18.3 % (11.5-14.5); RDW Standard Deviation 66.1 fL (36.4-46.3); Red Blood Count 2.38 M/uL (4.2-5.4); White Blood Count 5.01 K/uL (4.8-10.8)
[2022-02-23 04:45] LABS: Albumin Globulin Ratio 1.1 (0.9-2); Albumin Level 2.4 gm/dl (3.4-5.0); BUN Creatinine Ratio 36.1 (10-20); Bilirubin,Total 0.5 mg/dl (0.2-1.0); Calcium 7.5 mg/dl (8.5-10.1); Chol HDL Ratio 1.6 (0-5); Creatinine Clr Calc Pharmacy 55.6 ml/min; Est GFR (Non-African American) 85.4 ml/min; Globulin 2.1 gm/dl (2.5-4.0); Potassium 3.9 mmol/L (3.5-5.1); Total Protein 4.5 gm/dl (6.0-8.3)
[2022-02-23 04:48] LABS: RBC Morphology Unremarkable
[2022-02-23] MEDS: FUROSEMIDE 40 MG TAB PO SCH (08:13)
[2022-02-23] MEDS: POTASSIUM CHLORIDE 10 MEQ TABCR PO SCH (08:13)
[2022-02-23] MEDS: FLUTICASONE/VILANTEROL 100/25MCG 14 PUFFS/INHALER INH SCH (08:13)
[2022-02-23] MEDS: CHOLECALCIFEROL 1,000 UNITS 25 MCG TAB PO SCH (08:14)
[2022-02-23] MEDS: MAGNESIUM OXIDE 400 MG TAB PO SCH (08:14)
[2022-02-23] MEDS: SERTRALINE HCL 50 MG TABLET PO SCH (08:14)
[2022-02-23] MEDS: METOPROLOL SUCC 25MG EXT REL TAB PO SCH ×2 (08:14→20:57)
[2022-02-23] MEDS ORDERED: [UNRECOGNIZED DRUG - REMARK] PO SCH (09:00)
--- NOTE | 2022-02-23 15:57 | Hospitalist Progress Note ---
Date of Service February 23, 2022 Assessment & Plan (1) Left-sided chest pain: (2) Generalized weakness: Plan: Patient is a 71 yr female with H/O Persistent atrial fibrillation, on warfarin, s/p DANAE guided DCCV in 10/2018 with recurrent atrial fibrillation s/p cardiovers ion 05/05/2020, 09/05/2020 with recurrent atrial fibrillation 12/2020, tachybrady syndrome s/p PPM, chronic diastolic CHF, history of gastric bypass, COPD, depression, chronic anemia presented to ER with complaint ofpain x1 day. Left-sided chest pain Chest pain musculoskeletal given reproducibility Negative Troponin ECHO: Abnormal septal/apical wall motion with consistent with pacemaker acti vation, otherwise normal 1 motion. Had pacemaker interrogation which revealed normal pacemaker function Pacemaker site intact without erythema Resolved Generalized weakness General deconditioning due to comorbidities PT OT Fall precautions May need placement Chronic Atrial fibrillation H/O Tachybradycardia Syndrome S/P PPM Continue digoxin and metoprolol Continue warfarin for anticoagulation Chronic HFpEF Continue Lasix, metoprolol and potassium Monitor renal function, volume status COPD No acute exacerbation continue home inhalers Chronic anemia Baseline Hb ranges ~9 monitor, continue vitron C Depression continue zoloft Recent sacrococcygeal fracture L5-S1 anterolisthesis recent hospitalization in January for fall Conservative management as per orthopedics on prior hospitalization Completed a course of subacute rehab, is ambulating with walker PT OT Pain control Subtherapeutic INR Monitor INR:1.9 DVT Px: Warfarin Code Status Full code PCP: Gita Disposition To be determined Admission and Anticipated Discharge Date Admission Date: February 22, 2022 Subjective Patient is seen and examined at bedside Chest pain is resolved States having chronic dyspnea which is unchanged Reports feeling tired and has generalized weakness Also states having right groin discomfort Offers no other complaints Review of Systems Review of Systems: All systems reviewed & are unremarkable except as noted in Subjective Physical Exam Physical Exam: Physical Exam: Vitals signs as noted above General Appearance:Thin, frail, Chronic ill appearing Moderately built and nourished, no apparent distress Head: normocephalic, Atraumatic Eyes: normal inspection, EOMI Neck: supple, Trachea midline Respiratory/Chest: Normal breath sounds, CTA, No accessory muscle use, +Reproducible chest discomfort Cardiovascular:Irregularly Irregular, No murmur Abdomen/GI:Soft, Non tender, Bowel sounds present Extremities/Musculoskeletal:normal inspection,B/L LE edema Neurologic/Psych:AAO, + hearing impairment, grossly no focal neurological deficits Skin: normal color, warm Results & Data Results & Data ([facility]) Vital Signs (Past 12 Hours) Vital Signs Temp Pulse Pulse Resp BP Pulse Ox 02/23/22 15:02 82 02/23/22 07:10 84 02/23/22 04:18 36.7 C 84 17 97/62 L 97 Laboratory Results Short CBC 02/23/22 Range/Units 03:45 WBC 5.01 (4.8-10.8) K/uL Hgb 7.6 L (12.0-16.0) g/dL Hct 23.6 L (37-47) % Plt Count 260 (130-400) K/uL BMP 02/22/22 02/23/22 15:02 03:45 Sodium 140 140 Potassium 4.1 3.9 Chloride 109 H 109 H Carbon Dioxide 26 28 BUN 23 26 H Creatinine 0.71 0.72 Glucose 74 69 L Calcium 8.0 L 7.5 L Liver Function 02/22/22 02/23/22 Range/Units 15:02 03:45 Total Bilirubin 0.6 0.5 (0.2-1.0) mg/dl AST 23 13 (13-39) U/L ALT 18 12 (7-52) U/L Alkaline Phosphatase 152 H 116 H (34-104) U/L Albumin 2.9 L 2.4 L (3.4-5.0) gm/dl
[2022-02-23] MEDS: DIGOXIN 0.125 MG TAB PO SCH (16:43)
[2022-02-23] MEDS: WARFARIN SOD 2.5 MG TAB PO SCH (16:44)
[2022-02-23] MEDS: LIDOCAINE 5% 1 PATCH TD SCH (20:59)
[2022-02-24 05:02] LABS: EAG mmol/L DNR mmol/L; HA1C <4.0 (<5.7)
[2022-02-24 06:29] LABS: Appearance Urine Clear (Clear); Bacteria Urine Automated 1+ (Negative); Bilirubin Urine Negative (Negative); Blood Urine Negative (Negative); Color Urine Yellow; Epithelial Cell Urine Auto >30 /lpf (0-5); Glucose Urine UA Negative (Negative); Ketones Urine Negative (Negative); Leukocyte Esterase Urine 1+ (Negative); Nitrite Urine Negative (Negative); Protein Urine Negative (Negative); Specific Gravity Urine 1.017 (1.000-1.030); Urobilinogen Urine Negative (Negative)
--- NOTE | 2022-02-24 07:18 | Electrocardiogram Report ---
Test Reason : Blood Pressure : / mmHG Vent. Rate : 093 BPM Atrial Rate : 117 BPM P-R Int : 000 ms QRS Dur : 092 ms QT Int : 328 ms P-R-T Axes : 000 -26 058 degrees QTc Int : 407 ms Atrial fibrillation with ventricular-paced complexes Septal infarct , age undetermined Abnormal ECG When compared with ECG of 25-JAN-2022 15:26, No significant change Confirmed by Seven Houser ([id number]) on 02/24/2022 7:18:08 AM Referred By: Confirmed By:Seven Houser
[2022-02-24 07:20] LABS: Hematocrit (blood only) 26.2 % (37-47); Hemoglobin 8.4 g/dL (12.0-16.0); Mean Corpuscular Hemoglobin 31.7 pg (25-34); Mean Corpuscular Hgb Conc 32.1 g/dL (32-36); Mean Corpuscular Volume 98.9 fL (80-100); Mean Platelet Volume 9.5 fL (7.4-10.4); Platelet Count 291 K/uL (130-400); RDW Coefficient of Variation 18.4 % (11.5-14.5); RDW Standard Deviation 66.5 fL (36.4-46.3); Red Blood Count 2.65 M/uL (4.2-5.4); White Blood Count 4.79 K/uL (4.8-10.8)
[2022-02-24 07:30] LABS: INR 2.3 (0.9-1.1); Prothrombin Time 23.1 Seconds (9.0-12.0)
[2022-02-24 07:44] LABS: BUN Creatinine Ratio 32.8 (10-20); Calcium 7.7 mg/dl (8.5-10.1); Creatinine Clr Calc Pharmacy 65.7 ml/min; Est GFR (African American) 107.2 ml/min; Est GFR (Non-African American) 92.5 ml/min; Potassium 4.1 mmol/L (3.5-5.1)
[2022-02-24] MEDS: FLUTICASONE/VILANTEROL 100/25MCG 14 PUFFS/INHALER INH SCH (08:14)
[2022-02-24] MEDS: FUROSEMIDE 40 MG TAB PO SCH (08:15)
[2022-02-24] MEDS: POTASSIUM CHLORIDE 10 MEQ TABCR PO SCH (08:15)
[2022-02-24] MEDS: CHOLECALCIFEROL 1,000 UNITS 25 MCG TAB PO SCH (08:15)
[2022-02-24] MEDS: MAGNESIUM OXIDE 400 MG TAB PO SCH (08:15)
[2022-02-24] MEDS: SERTRALINE HCL 50 MG TABLET PO SCH (08:15)
[2022-02-24] MEDS: METOPROLOL SUCC 25MG EXT REL TAB PO SCH ×2 (08:25→20:24)
--- NOTE | 2022-02-24 12:00 | Hospitalist Progress Note ---
Date of Service February 24, 2022 Assessment & Plan (1) Left-sided chest pain: (2) Generalized weakness: Plan: 71 yr female with H/O Persistent atrial fibrillation, on warfarin, s/p DANAE guided DCCV in 10/2018 with recurrent atrial fibrillation s/p cardioversion 05/05/2020, 09/05/2020 with recurrent atrial fibrillation 12/2020, tachybrady syndrome s/p PPM, chronic diastolic CHF, history of gastric bypass, COPD, depression, chronic anemia presented to ER with complaint ofpain x1 day. Left-sided chest pain Chest pain musculoskeletal given reproducibility Negative Troponin ECHO: Abnormal septal/apical wall motion with consistent with pacemaker activation, otherwise normal 1 motion. Had pacemaker interrogation which revealed normal pacemaker function Pacemaker site intact without erythema Resolved Generalized weakness General deconditioning due to comorbidities PT OT recommendations noted Fall precautions demand generation manager working on placement Chronic Atrial fibrillation H/O Tachybradycardia Syndrome S/P PPM Continue digoxin and metoprolol Continue warfarin for anticoagulation INR is 2.3 Chronic HFpEF Continue Lasix, metoprolol and potassium Monitor renal function, volume status COPD No acute exacerbation continue home inhalers Chronic anemia Baseline Hb ranges ~9 Hemoglobin is 8.4 today monitor, continue vitron C Depression continue zoloft Recent sacrococcygeal fracture L5-S1 anterolisthesis recent hospitalization in January for fall Conservative management as per orthopedics on prior hospitalization Completed a course of subacute rehab, is ambulating with walker PT OT while inpatient Pain control DVT Px: Warfarin Code Status Full code PCP: Gita Mo demand generation manager working on placement Admission and Anticipated Discharge Date Admission Date: February 22, 2022 Subjective Patient seen and examined Reports weakness in the legs. Reports feeling better. Denies cough, chest pain, palpitations. Reports dyspnea on exertion Denies nausea, vomiting, abdominal pain, diarrhea or constipation. Denies dysuria, frequency or urgency Physical Exam Constitutional: + well hydrated; no acute distress Elderly woman Eyes: PERRL, conjunctivae normal, anicteric sclerae ENMT: external ear and nose normal, oropharynx normal Respiratory: normal respiratory effort, lungs clear to auscultation Cardiovascular: Rate/Rhythm: + irregularly irregular S1-S2 Gastrointestinal (Abdomen): normal bowel sounds, soft, nontender, no hepatosplenomegaly Musculoskeletal: Trace pedal edema Neurologic: PERRL, EOMI, accommodation nl, no face palsy, no dysarthria Psychiatric: A+Ox3, euthymic affect Results & Data Results & Data ([facility]) Vital Signs (Past 12 Hours) Vital Signs Temp Pulse Pulse Resp BP Pulse Ox 02/24/22 11:58 36.5 C 63 20 95/63 L 99 02/24/22 08:20 65 02/24/22 08:16 36.3 C L 70 20 106/69 98 02/24/22 03:11 36.5 C 66 18 111/79 97 Laboratory Results Abnormal lab results 02/24/22 02/24/22 02/24/22 Range/Units 05:55 06:54 06:54 WBC 4.79 L (4.8-10.8) K/uL RBC 2.65 L (4.2-5.4) M/uL Hgb 8.4 L (12.0-16.0) g/dL Hct 26.2 L (37-47) % RDW Std Deviation 66.5 H (36.4-46.3) fL RDW Coeff of Saman 18.4 H (11.5-14.5) % PT 23.1 H (9.0-12.0) Seconds INR 2.3 H (0.9-1.1) Chloride (98-107) mmol/L BUN/Creatinine Ratio (10-20) Calcium (8.5-10.1) mg/dl Ur Leukocyte Esterase 1+ H (Negative) Urine WBC (Auto) 10-30 H (0-5) /hpf Urine RBC (Auto) 10-30 H (0-4) /hpf U Epithel Cells (Auto) >30 H (0-5) /lpf Urine Bacteria (Auto) 1+ H (Negative) 02/24/22 Range/Units 06:54 WBC (4.8-10.8) K/uL RBC (4.2-5.4) M/uL Hgb (12.0-16.0) g/dL Hct (37-47) % RDW Std Deviation (36.4-46.3) fL RDW Coeff of Saman (11.5-14.5) % PT (9.0-12.0) Seconds INR (0.9-1.1) Chloride 109 H (98-107) mmol/L BUN/Creatinine Ratio 32.8 H (10-20) Calcium 7.7 L (8.5-10.1) mg/dl Ur Leukocyte Esterase (Negative) Urine WBC (Auto) (0-5) /hpf Urine RBC (Auto) (0-4) /hpf U Epithel Cells (Auto) (0-5) /lpf Urine Bacteria (Auto) (Negative)
[2022-02-24] MEDS: CALCIUM CITRATE 950 MG TAB PO SCH (15:52)
[2022-02-24] MEDS: CYANOCOBALAMIN (B-12) 100 MCG TABLET PO SCH (15:52)
[2022-02-24] MEDS: CEROVITE ADV FORMULA TAB PO SCH (15:53)
[2022-02-24] MEDS: WARFARIN SOD 1.25 MG TAB PO SCH (16:00)
[2022-02-24] MEDS: DIGOXIN 0.125 MG TAB PO SCH (16:00)
[2022-02-24] MEDS: LIDOCAINE 5% 1 PATCH TD SCH (20:28)
[2022-02-25 07:10] LABS: INR 2.2 (0.9-1.1); Prothrombin Time 22.4 Seconds (9.0-12.0)
[2022-02-25 07:23] LABS: BUN Creatinine Ratio 38.7 (10-20); Calcium 7.7 mg/dl (8.5-10.1); Creatinine Clr Calc Pharmacy 64.6 ml/min; Est GFR (African American) 106.6 ml/min
[2022-02-25] MEDS: SERTRALINE HCL 50 MG TABLET PO SCH (08:20)
[2022-02-25] MEDS: ACETAMINOPHEN 325 MG TAB PO PRN (08:20)
[2022-02-25] MEDS: METOPROLOL SUCC 25MG EXT REL TAB PO SCH ×2 (08:20→21:08)
[2022-02-25] MEDS: MAGNESIUM OXIDE 400 MG TAB PO SCH (08:21)
[2022-02-25] MEDS: FUROSEMIDE 40 MG TAB PO SCH (08:21)
[2022-02-25] MEDS: CHOLECALCIFEROL 1,000 UNITS 25 MCG TAB PO SCH (08:22)
[2022-02-25] MEDS: FLUTICASONE/VILANTEROL 100/25MCG 14 PUFFS/INHALER INH SCH (08:22)
[2022-02-25] MEDS: POTASSIUM CHLORIDE 10 MEQ TABCR PO SCH (08:22)
[2022-02-25] MEDS: CYANOCOBALAMIN (B-12) 100 MCG TABLET PO SCH (08:22)
[2022-02-25] MEDS: CEROVITE ADV FORMULA TAB PO SCH (08:23)
[2022-02-25] MEDS: CALCIUM CITRATE 950 MG TAB PO SCH (12:11)
--- NOTE | 2022-02-25 12:45 | Hospitalist Progress Note ---
Date of Service February 25, 2022 Assessment & Plan (1) Left-sided chest pain: (2) Generalized weakness: Plan: 71 yr female with H/O Persistent atrial fibrillation, on warfarin, s/p DANAE guided DCCV in 10/2018 with recurrent atrial fibrillation s/p cardioversion 05/05/2020, 09/05/2020 with recurrent atrial fibrillation 12/2020, tachybrady syndrome s/p PPM, chronic diastolic CHF, history of gastric bypass, COPD, depression, chronic anemia presented to ER with complaint ofpain x1 day. Left-sided chest pain Chest pain musculoskeletal given reproducibility Negative Troponin ECHO: Abnormal septal/apical wall motion with consistent with pacemaker activation, otherwise normal 1 motion. Had pacemaker interrogation which revealed normal pacemaker function Pacemaker site intact without erythema Resolved Generalized weakness General deconditioning due to comorbidities PT OT recommendations noted Fall precautions brokerage office manager working on placement Chronic Atrial fibrillation H/O Tachybradycardia Syndrome S/P PPM Continue digoxin and metoprolol Continue warfarin for anticoagulation INR is 2.2 Chronic HFpEF Continue Lasix, metoprolol and potassium Monitor renal function, volume status COPD No acute exacerbation continue home inhalers Chronic anemia Baseline Hb ranges ~9 Hemoglobin is 8.4 yesterday monitor, continue vitron C Depression continue zoloft Recent sacrococcygeal fracture L5-S1 anterolisthesis recent hospitalization in January for fall Conservative management as per orthopedics on prior hospitalization Completed a course of subacute rehab, is ambulating with walker PT OT while inpatient Pain control DVT Px: Warfarin Code Status Full code PCP: Gita Mo brokerage office manager working on placement Admission and Anticipated Discharge Date Admission Date: February 24, 2022 Subjective Patient seen and examined Reports weakness and some dyspnea with activity Denies cough, chest pain, palpitations. Denies nausea, vomiting, abdominal pain, diarrhea or constipation. Denies dysuria, frequency or urgency Physical Exam Constitutional: + well hydrated; no acute distress Eyes: PERRL, conjunctivae normal, anicteric sclerae ENMT: external ear and nose normal, oropharynx normal Respiratory: normal respiratory effort, lungs clear to auscultation Cardiovascular: Rate/Rhythm: + irregularly irregular S1 S2 Gastrointestinal (Abdomen): normal bowel sounds, soft, nontender, no hepatosplenomegaly Musculoskeletal: Trace pedal edema Neurologic: PERRL, EOMI, accommodation nl, no face palsy, no dysarthria Psychiatric: A+Ox3, euthymic affect Results & Data Results & Data ([facility]) Vital Signs (Past 12 Hours) Vital Signs Temp Pulse Pulse Resp BP Pulse Ox 02/25/22 11:35 36.4 C L 60 18 98/67 L 99 02/25/22 08:20 36.8 C 73 18 100/63 100 02/25/22 07:15 64 02/25/22 03:48 36.6 C 75 17 100/69 98 Laboratory Results Abnormal lab results 02/25/22 02/25/22 Range/Units 06:20 06:20 PT 22.4 H (9.0-12.0) Seconds INR 2.2 H (0.9-1.1) Chloride 108 H (98-107) mmol/L BUN 24 H (6-23) mg/dl BUN/Creatinine Ratio 38.7 H (10-20) Glucose 65 L (70-99(Fasting)) mg/dl Calcium 7.7 L (8.5-10.1) mg/dl
[2022-02-25] MEDS: WARFARIN SOD 2.5 MG TAB PO SCH (16:31)
[2022-02-25] MEDS: DIGOXIN 0.125 MG TAB PO SCH (16:32)
[2022-02-25] MEDS: LIDOCAINE 5% 1 PATCH TD SCH (21:09)
[2022-02-26 06:07] LABS: INR 2.3 (0.9-1.1)
[2022-02-26] MEDS: ACETAMINOPHEN 325 MG TAB PO PRN (08:06)
[2022-02-26] MEDS: POTASSIUM CHLORIDE 10 MEQ TABCR PO SCH (08:07)
[2022-02-26] MEDS: MAGNESIUM OXIDE 400 MG TAB PO SCH (08:07)
[2022-02-26] MEDS: SERTRALINE HCL 50 MG TABLET PO SCH (08:07)
[2022-02-26] MEDS: CYANOCOBALAMIN (B-12) 100 MCG TABLET PO SCH (08:07)
[2022-02-26] MEDS: CHOLECALCIFEROL 1,000 UNITS 25 MCG TAB PO SCH (08:07)
[2022-02-26] MEDS: CEROVITE ADV FORMULA TAB PO SCH (08:07)
[2022-02-26] MEDS: FUROSEMIDE 40 MG TAB PO SCH (08:07)
[2022-02-26] MEDS: FLUTICASONE/VILANTEROL 100/25MCG 14 PUFFS/INHALER INH SCH (08:09)
[2022-02-26] MEDS: METOPROLOL SUCC 25MG EXT REL TAB PO SCH ×2 (09:58→20:28)
[2022-02-26] MEDS: CALCIUM CITRATE 950 MG TAB PO SCH (12:20)
--- NOTE | 2022-02-26 12:39 | Hospitalist Progress Note ---
Date of Service February 26, 2022 Assessment & Plan (1) Left-sided chest pain: (2) Generalized weakness: Plan: 71 yr female with H/O Persistent atrial fibrillation, on warfarin, s/p DANAE guided DCCV in 10/2018 with recurrent atrial fibrillation s/p cardioversion 05/05/2020, 09/05/2020 with recurrent atrial fibrillation 12/2020, tachybrady syndrome s/p PPM, chronic diastolic CHF, history of gastric bypass, COPD, depression, chronic anemia presented to ER with complaint ofpain x1 day. Left-sided chest pain Chest pain musculoskeletal given reproducibility Negative Troponin ECHO: Abnormal septal/apical wall motion with consistent with pacemaker activation, otherwise normal 1 motion. Had pacemaker interrogation which revealed normal pacemaker function Pacemaker site intact without erythema Resolved Generalized weakness General deconditioning due to comorbidities PT OT recommendations noted Fall precautions library manager working on placement Chronic Atrial fibrillation H/O Tachybradycardia Syndrome S/P PPM Continue digoxin and metoprolol Continue warfarin for anticoagulation INR is 2.3 Chronic HFpEF Continue Lasix, metoprolol and potassium Monitor renal function, volume status COPD No acute exacerbation continue home inhalers Chronic anemia Baseline Hb ranges ~9 Hemoglobin is 8.4 yesterday monitor, continue vitron C Depression continue zoloft Recent sacrococcygeal fracture L5-S1 anterolisthesis recent hospitalization in January for fall Conservative management as per orthopedics on prior hospitalization Completed a course of subacute rehab, is ambulating with walker PT OT while inpatient Pain control DVT Px: Warfarin Code Status Full code PCP: Gita Mo library manager working on placement Admission and Anticipated Discharge Date Admission Date: February 24, 2022 Subjective Patient seen and examined Reports improved weakness today. Reports increasing activity Denies cough, chest pain, palpitations. Denies nausea, vomiting, abdominal pain, diarrhea or constipation. Denies dysuria, frequency or urgency Physical Exam Constitutional: + well hydrated; no acute distress Eyes: PERRL, conjunctivae normal, anicteric sclerae ENMT: external ear and nose normal, oropharynx normal Hearing deficits Respiratory: normal respiratory effort, lungs clear to auscultation Cardiovascular: Rate/Rhythm: + irregularly irregular S1 S2 Gastrointestinal (Abdomen): normal bowel sounds, soft, nontender, no hepatosplenomegaly Musculoskeletal: Trace pedal edema Neurologic: PERRL, EOMI, accommodation nl, no face palsy, no dysarthria Psychiatric: A+Ox3, euthymic affect Results & Data Results & Data ([facility]) Vital Signs (Past 12 Hours) Vital Signs Temp Pulse Pulse Resp BP BP Pulse Ox 02/26/22 11:33 36.4 C L 62 16 92/58 L 99 02/26/22 08:00 74 02/26/22 07:47 36.3 C L 80 15 93/62 L 96 02/26/22 03:23 36.5 C 82 16 97/61 L 94 Laboratory Results Abnormal lab results 02/26/22 Range/Units 05:35 PT 23.0 H (9.0-12.0) Seconds INR 2.3 H (0.9-1.1)
[2022-02-26] MEDS: WARFARIN SOD 1.25 MG TAB PO SCH (15:35)
[2022-02-26] MEDS: DIGOXIN 0.125 MG TAB PO SCH (15:35)
[2022-02-26] MEDS: LIDOCAINE 5% 1 PATCH TD SCH (20:28)
[2022-02-27] MEDS: FUROSEMIDE 40 MG TAB PO SCH (08:19)
[2022-02-27] MEDS: FLUTICASONE/VILANTEROL 100/25MCG 14 PUFFS/INHALER INH SCH (08:19)
[2022-02-27] MEDS: CHOLECALCIFEROL 1,000 UNITS 25 MCG TAB PO SCH (08:19)
[2022-02-27] MEDS: SERTRALINE HCL 50 MG TABLET PO SCH (08:20)
[2022-02-27] MEDS: CYANOCOBALAMIN (B-12) 100 MCG TABLET PO SCH (08:20)
[2022-02-27] MEDS: MAGNESIUM OXIDE 400 MG TAB PO SCH (08:20)
[2022-02-27] MEDS: POTASSIUM CHLORIDE 10 MEQ TABCR PO SCH (08:20)
[2022-02-27] MEDS: CEROVITE ADV FORMULA TAB PO SCH (08:20)
[2022-02-27] MEDS: METOPROLOL SUCC 25MG EXT REL TAB PO SCH ×2 (08:21→23:21)
[2022-02-27] MEDS: CALCIUM CITRATE 950 MG TAB PO SCH (12:46)
[2022-02-27] MEDS: WARFARIN SOD 1.25 MG TAB PO SCH (15:09)
[2022-02-27] MEDS: DIGOXIN 0.125 MG TAB PO SCH (15:09)
--- NOTE | 2022-02-27 15:23 | Hospitalist Progress Note ---
Date of Service February 27, 2022 Assessment & Plan (1) Left-sided chest pain: (2) Generalized weakness: Plan: 71 yr female with H/O Persistent atrial fibrillation, on warfarin, s/p DANAE guided DCCV in 10/2018 with recurrent atrial fibrillation s/p cardioversion 05/05/2020, 09/05/2020 with recurrent atrial fibrillation 12/2020, tachybrady syndrome s/p PPM, chronic diastolic CHF, history of gastric bypass, COPD, depression, chronic anemia presented to ER with complaint ofpain x1 day. Left-sided chest pain Chest pain musculoskeletal given reproducibility Negative Troponin ECHO: Abnormal septal/apical wall motion with consistent with pacemaker activation, otherwise normal 1 motion. Had pacemaker interrogation which revealed normal pacemaker function Pacemaker site intact without erythema Resolved Generalized weakness General deconditioning due to comorbidities PT OT recommendations noted Fall precautions marketing manager health communications working on placement Chronic Atrial fibrillation H/O Tachybradycardia Syndrome S/P PPM Continue digoxin and metoprolol Continue warfarin for anticoagulation INR was 2.3 on 02/26/22 Chronic HFpEF Continue Lasix, metoprolol and potassium Monitor renal function, volume status COPD No acute exacerbation continue home inhalers Chronic anemia Baseline Hb ranges ~9 Last Hemoglobin was 8.4 monitor, continue vitron C Depression continue zoloft Recent sacrococcygeal fracture L5-S1 anterolisthesis recent hospitalization in January for fall Conservative management as per orthopedics on prior hospitalization Completed a course of subacute rehab, is ambulating with walker PT OT while inpatient Pain control DVT Px: Warfarin Code Status Full code PCP: Gita Mo marketing manager health communications working on placement. Plan for dc on Tuesday Admission and Anticipated Discharge Date Admission Date: February 24, 2022 Subjective Patient seen and examined No new complaints today Generalized weakness improving Denies cough, chest pain, palpitations. Denies nausea, vomiting, abdominal pain, diarrhea or constipation. Denies dysuria, frequency or urgency Physical Exam Constitutional: + well hydrated; no acute distress Eyes: PERRL, conjunctivae normal, anicteric sclerae ENMT: external ear and nose normal, oropharynx normal Respiratory: normal respiratory effort, lungs clear to auscultation Cardiovascular: Rate/Rhythm: + irregularly irregular S1 S2 Gastrointestinal (Abdomen): normal bowel sounds, soft, nontender, no hepat osplenomegaly Musculoskeletal: Trace pedal edema Neurologic: PERRL, EOMI, accommodation nl, no face palsy, no dysarthria Psychiatric: A+Ox3, euthymic affect Results & Data Results & Data ([facility]) Vital Signs (Past 12 Hours) Vital Signs Temp Pulse Pulse Pulse Resp BP Pulse Ox 02/27/22 15:15 36.5 C 64 16 96/61 L 97 02/27/22 15:09 74 02/27/22 08:21 89/59 L 02/27/22 07:11 36.4 C L 71 18 96/62 L 98 02/27/22 03:34 36.7 C 80 16 100/62 96
[2022-02-27] MEDS: LIDOCAINE 5% 1 PATCH TD SCH (21:36)
[2022-02-28] MEDS: FLUTICASONE/VILANTEROL 100/25MCG 14 PUFFS/INHALER INH SCH (09:17)
[2022-02-28] MEDS: FUROSEMIDE 40 MG TAB PO SCH (09:18)
[2022-02-28] MEDS: CEROVITE ADV FORMULA TAB PO SCH (09:18)
[2022-02-28] MEDS: MAGNESIUM OXIDE 400 MG TAB PO SCH (09:18)
[2022-02-28] MEDS: SERTRALINE HCL 50 MG TABLET PO SCH (09:18)
[2022-02-28] MEDS: POTASSIUM CHLORIDE 10 MEQ TABCR PO SCH (09:18)
[2022-02-28] MEDS: CALCIUM CITRATE 950 MG TAB PO SCH (09:18)
[2022-02-28] MEDS: CYANOCOBALAMIN (B-12) 100 MCG TABLET PO SCH (09:18)
[2022-02-28] MEDS: METOPROLOL SUCC 25MG EXT REL TAB PO SCH ×2 (09:18→21:34)
[2022-02-28] MEDS: CHOLECALCIFEROL 1,000 UNITS 25 MCG TAB PO SCH (09:19)
[2022-02-28] MEDS: DIGOXIN 0.125 MG TAB PO SCH (15:40)
[2022-02-28] MEDS: WARFARIN SOD 2.5 MG TAB PO SCH (15:41)
--- NOTE | 2022-02-28 15:44 | Hospitalist Progress Note ---
Date of Service February 28, 2022 Assessment & Plan (1) Left-sided chest pain: (2) Generalized weakness: Plan: 71 yr female with H/O Persistent atrial fibrillation, on warfarin, s/p DANAE guided DCCV in 10/2018 with recurrent atrial fibrillation s/p cardioversion 05/05/2020, 09/05/2020 with recurrent atrial fibrillation 12/2020, tachybrady syndrome s/p PPM, chronic diastolic CHF, history of gastric bypass, COPD, depression, chronic anemia presented to ER with complaint ofpain x1 day. Left-sided chest pain Chest pain musculoskeletal given reproducibility Negative Troponin ECHO: Abnormal septal/apical wall motion with consistent with pacemaker activation, otherwise normal wall motion. Had pacemaker interrogation which revealed normal pacemaker function Pacemaker site intact without erythema Resolved Generalized weakness General deconditioning due to comorbidities PT OT recommendations noted Fall precautions occupational safety and health manager working on placement Chronic Atrial fibrillation H/O Tachybradycardia Syndrome S/P PPM Continue digoxin and metoprolol Continue warfarin for anticoagulation INR was 2.3 on 02/26/22 Chronic HFpEF Continue Lasix, metoprolol and potassium Monitor renal function, volume status COPD No acute exacerbation continue home inhalers Chronic anemia Baseline Hb ranges ~9 Last Hemoglobin was 8.4 monitor, continue vitron C Depression continue zoloft Recent sacrococcygeal fracture L5-S1 anterolisthesis recent hospitalization in January for fall Conservative management as per orthopedics on prior hospitalization Completed a course of subacute rehab, is ambulating with walker PT OT while inpatient DVT Px: Warfarin Code Status Full code PCP: Gita Disposition Plan to dc tomorrow Admission and Anticipated Discharge Date Admission Date: February 24, 2022 Subjective Patient seen and examined No new complaints Generalized weakness continues to improve Denies cough, chest pain, palpitations. Denies nausea, vomiting, abdominal pain, diarrhea or constipation. Denies dysuria, frequency or urgency Physical Exam Constitutional: + well hydrated; no acute distress Eyes: PERRL, conjunctivae normal, anicteric sclerae ENMT: external ear and nose normal, oropharynx normal Respiratory: normal respiratory effort, lungs clear to auscultation Cardiovascular: Rate/Rhythm: + irregularly irregular S1 S2 Gastrointestinal (Abdomen): normal bowel sounds, soft, nontender, no hepatosplenomegaly Musculoskeletal: Trace pedal edema Neurologic: PERRL, EOMI, accommodation nl, no face palsy, no dysarthria Psychiatric: A+Ox3, euthymic affect Results & Data Results & Data ([facility]) Vital Signs (Past 12 Hours) Vital Signs Temp Pulse Resp BP Pulse Ox 02/28/22 15:38 85 16 105/70 94 02/28/22 07:13 36.9 C 66 16 109/69 96
[2022-02-28] MEDS: ACETAMINOPHEN 325 MG TAB PO PRN (18:20)
[2022-02-28] MEDS: LIDOCAINE 5% 1 PATCH TD SCH (21:35)
[2022-03-01 06:54] LABS: INR 1.8 (0.9-1.1); Prothrombin Time 18.6 Seconds (9.0-12.0)
[2022-03-01] MEDS: FLUTICASONE/VILANTEROL 100/25MCG 14 PUFFS/INHALER INH SCH (08:39)
[2022-03-01] MEDS: CEROVITE ADV FORMULA TAB PO SCH (08:39)
[2022-03-01] MEDS: METOPROLOL SUCC 25MG EXT REL TAB PO SCH ×2 (08:39→20:22)
[2022-03-01] MEDS: CHOLECALCIFEROL 1,000 UNITS 25 MCG TAB PO SCH (08:39)
[2022-03-01] MEDS: CYANOCOBALAMIN (B-12) 100 MCG TABLET PO SCH (08:39)
[2022-03-01] MEDS: SERTRALINE HCL 50 MG TABLET PO SCH (08:39)
[2022-03-01] MEDS: FUROSEMIDE 40 MG TAB PO SCH (08:39)
[2022-03-01] MEDS: MAGNESIUM OXIDE 400 MG TAB PO SCH (08:40)
[2022-03-01] MEDS: POTASSIUM CHLORIDE 10 MEQ TABCR PO SCH (08:42)
[2022-03-01] MEDS: CALCIUM CITRATE 950 MG TAB PO SCH (12:05)
--- NOTE | 2022-03-01 16:14 | Hospitalist Progress Note ---
Date of Service March 01, 2022 Assessment & Plan (1) Left-sided chest pain: (2) Generalized weakness: Plan: 71 yr female with H/O Persistent atrial fibrillation, on warfarin, s/p DANAE guided DCCV in 10/2018 with recurrent atrial fibrillation s/p cardioversion 05/05/2020, 09/05/2020 with recurrent atrial fibrillation 12/2020, tachybrady syndrome s/p PPM, chronic diastolic CHF, history of gastric bypass, COPD, depression, chronic anemia presented to ER with complaint ofpain x1 day. Left-sided chest pain Chest pain musculoskeletal given reproducibility Negative Troponin ECHO: Abnormal septal/apical wall motion with consistent with pacemaker activation, otherwise normal wall motion. Had pacemaker interrogation which revealed normal pacemaker function Pacemaker site intact without erythema Resolved Generalized weakness General deconditioning due to comorbidities PT OT recommendations noted Fall precautions canteen manager working on placement Chronic Atrial fibrillation H/O Tachybradycardia Syndrome S/P PPM Continue digoxin and metoprolol Continue warfarin for anticoagulation INR was 1.8 today. Will monitor Chronic HFpEF Continue Lasix, metoprolol and potassium Monitor renal function, volume status COPD No acute exacerbation continue home inhalers Chronic anemia Baseline Hb ranges ~9 Last Hemoglobin was 8.4 monitor, continue vitron C Depression continue zoloft Recent sacrococcygeal fracture L5-S1 anterolisthesis recent hospitalization in January for fall Conservative management as per orthopedics on prior hospitalization PT OT while inpatient DVT Px: Warfarin Code Status Full code PCP: Gita Disposition CM awaiting auth for discharge to SNF/rehab Admission and Anticipated Discharge Date Admission Date: February 24, 2022 Subjective Patient seen and examined No new complaints Denies cough, chest pain, palpitations. Denies nausea, vomiting, abdominal pain, diarrhea or constipation. Denies dysuria, frequency or urgency Physical Exam Constitutional: + well hydrated; no acute distress Eyes: PERRL, conjunctivae normal, anicteric sclerae ENMT: external ear and nose normal, oropharynx normal Respiratory: normal respiratory effort, lungs clear to auscultation Cardiovascular: Rate/Rhythm: + irregularly irregular S1 S2 Gastrointestinal (Abdomen): normal bowel sounds, soft, nontender, no hepatosplenomegaly Musculoskeletal: Trace pedal edema Neurologic: PERRL, EOMI, accommodation nl, no face palsy, no dysarthria Psychiatric: A+Ox3, euthymic affect Results & Data Results & Data ([facility]) Vital Signs (Past 12 Hours) Vital Signs Temp Pulse Resp BP Pulse Ox 03/01/22 07:14 36.4 C L 75 16 104/66 98 Laboratory Results Abnormal lab results 03/01/22 Range/Units 06:18 PT 18.6 H (9.0-12.0) Seconds INR 1.8 H (0.9-1.1)
[2022-03-01] MEDS: WARFARIN SOD 1.25 MG TAB PO SCH (16:31)
[2022-03-01] MEDS: DIGOXIN 0.125 MG TAB PO SCH (16:31)
[2022-03-01] MEDS: LIDOCAINE 5% 1 PATCH TD SCH (20:19)
[2022-03-02 08:06] LABS: INR 1.6 (0.9-1.1); Prothrombin Time 17.1 Seconds (9.0-12.0)
[2022-03-02] MEDS: POTASSIUM CHLORIDE 10 MEQ TABCR PO SCH (09:36)
[2022-03-02] MEDS: CEROVITE ADV FORMULA TAB PO SCH (09:37)
[2022-03-02] MEDS: MAGNESIUM OXIDE 400 MG TAB PO SCH (09:37)
[2022-03-02] MEDS: CHOLECALCIFEROL 1,000 UNITS 25 MCG TAB PO SCH (09:37)
[2022-03-02] MEDS: SERTRALINE HCL 50 MG TABLET PO SCH (09:37)
[2022-03-02] MEDS: FUROSEMIDE 40 MG TAB PO SCH (09:37)
[2022-03-02] MEDS: CYANOCOBALAMIN (B-12) 100 MCG TABLET PO SCH (09:37)
[2022-03-02] MEDS: FLUTICASONE/VILANTEROL 100/25MCG 14 PUFFS/INHALER INH SCH (09:37)
[2022-03-02] MEDS: METOPROLOL SUCC 25MG EXT REL TAB PO SCH ×2 (09:40→21:43)
[2022-03-02] MEDS: CALCIUM CITRATE 950 MG TAB PO SCH (11:03)
--- NOTE | 2022-03-02 14:34 | Hospitalist Progress Note ---
Date of Service March 02, 2022 Assessment & Plan (1) Left-sided chest pain: (2) Generalized weakness: Plan: 71 yr female with H/O Persistent atrial fibrillation, on warfarin, s/p DANAE guided DCCV in 10/2018 with recurrent atrial fibrillation s/p cardioversion 05/05/2020, 09/05/2020 with recurrent atrial fibrillation 12/2020, tachybrady syndrome s/p PPM, chronic diastolic CHF, history of gastric bypass, COPD, depression, chronic anemia presented to ER with complaint ofpain x1 day. Left-sided chest pain Chest pain musculoskeletal given reproducibility Negative Troponin ECHO: Abnormal septal/apical wall motion with consistent with pacemaker activation, otherwise normal wall motion. Had pacemaker interrogation which revealed normal pacemaker function Pacemaker site intact without erythema Resolved Generalized weakness General deconditioning due to comorbidities PT OT recommendations noted Fall precautions Chronic Atrial fibrillation H/O Tachybradycardia Syndrome S/P PPM Continue digoxin and metoprolol Continue warfarin for anticoagulation INR was 1.6 today. Will 5mg of warfarin today and resume home dose tomorrow Monitor iNR Chronic HFpEF Continue Lasix, metoprolol and potassium Monitor renal function, volume status COPD No acute exacerbation continue home inhalers Chronic anemia Baseline Hb ranges ~9 Last Hemoglobin was 8.4 monitor, continue vitron C Depression continue zoloft Recent sacrococcygeal fracture L5-S1 anterolisthesis recent hospitalization in January for fall Conservative management as per orthopedics on prior hospitalization PT OT while inpatient DVT Px: Warfarin Code Status Full code PCP: Gita Disposition CM reported auth for SNF/rehab was denied. Patient does not want to go to personal care. She will prefer to go home instead if rehab/SNF is denied. Awaiting PT reeval to determine if safe to discharge home as patient's caregiver, her is currently inpatient Admission and Anticipated Discharge Date Admission Date: February 24, 2022 Subjective Patient seen and examined Denies any new complaints Denies cough, chest pain, palpitations. Denies nausea, vomiting, abdominal pain, diarrhea or constipation. Denies dysuria, frequency or urgency Physical Exam Constitutional: + well hydrated; no acute distress Eyes: PERRL, conjunctivae normal, anicteric sclerae ENMT: external ear and nose normal, oropharynx normal Respiratory: normal respiratory effort, lungs clear to auscultation Cardiovascular: Rate/Rhythm: + irregularly irregular S1 S2 Gastrointestinal (Abdomen): normal bowel sounds, soft, nontender, no hepatosplenomegaly Musculoskeletal: Trace pedal edema Neurologic: PERRL, EOMI, accommodation nl, no face palsy, no dysarthria Psychiatric: A+Ox3, euthymic affect Results & Data Results & Data ([facility]) Vital Signs (Past 12 Hours) Vital Signs Temp Pulse Resp BP Pulse Ox 03/02/22 07:55 36.3 C L 51 L 18 100/65 97 Laboratory Results Abnormal lab results 03/02/22 Range/Units 07:30 PT 17.1 H (9.0-12.0) Seconds INR 1.6 H (0.9-1.1)
[2022-03-02] MEDS ORDERED: WARFARIN SOD 5 MG TAB PO ONE (16:00)
[2022-03-02] MEDS: DIGOXIN 0.125 MG TAB PO SCH (16:47)
[2022-03-02] MEDS: LIDOCAINE 5% 1 PATCH TD SCH (21:43)
[2022-03-03 07:37] LABS: Hematocrit (blood only) 27.4 % (37-47); Hemoglobin 8.8 g/dL (12.0-16.0); Mean Corpuscular Hemoglobin 32.2 pg (25-34); Mean Corpuscular Hgb Conc 32.1 g/dL (32-36); Mean Corpuscular Volume 100.4 fL (80-100); Mean Platelet Volume 9.5 fL (7.4-10.4); Platelet Count 370 K/uL (130-400); RDW Coefficient of Variation 17.2 % (11.5-14.5); RDW Standard Deviation 62.9 fL (36.4-46.3); Red Blood Count 2.73 M/uL (4.2-5.4); White Blood Count 6.31 K/uL (4.8-10.8)
[2022-03-03 07:43] LABS: INR 1.7 (0.9-1.1); Prothrombin Time 17.5 Seconds (9.0-12.0)
[2022-03-03 08:05] LABS: BUN Creatinine Ratio 43.1 (10-20); Calcium 7.9 mg/dl (8.5-10.1); Creatinine Clr Calc Pharmacy 61.6 ml/min; Est GFR (Non-African American) 90.6 ml/min; Potassium 4.1 mmol/L (3.5-5.1)
[2022-03-03] MEDS: MAGNESIUM OXIDE 400 MG TAB PO SCH (09:45)
[2022-03-03] MEDS: FUROSEMIDE 40 MG TAB PO SCH (09:45)
[2022-03-03] MEDS: CHOLECALCIFEROL 1,000 UNITS 25 MCG TAB PO SCH (09:45)
[2022-03-03] MEDS: CYANOCOBALAMIN (B-12) 100 MCG TABLET PO SCH (09:46)
[2022-03-03] MEDS: METOPROLOL SUCC 25MG EXT REL TAB PO SCH (09:46)
[2022-03-03] MEDS: SERTRALINE HCL 50 MG TABLET PO SCH (09:47)
[2022-03-03] MEDS: CEROVITE ADV FORMULA TAB PO SCH (09:47)
[2022-03-03] MEDS: FLUTICASONE/VILANTEROL 100/25MCG 14 PUFFS/INHALER INH SCH (09:48)
[2022-03-03] MEDS: POTASSIUM CHLORIDE 10 MEQ TABCR PO SCH (09:51)
[2022-03-03] MEDS: CALCIUM CITRATE 950 MG TAB PO SCH (13:56)
--- NOTE | 2022-03-03 14:41 | Hospitalist Progress Note ---
Date of Service March 03, 2022 Assessment & Plan (1) Left-sided chest pain: (2) Generalized weakness: Plan: Patient is a 71 yr female with H/O Persistent atrial fibrillation, on warfarin, s/p DANAE guided DCCV in 10/2018 with recurrent atrial fibrillation s/p cardioversi on 05/05/2020, 09/05/2020 with recurrent atrial fibrillation 12/2020, tachybrady syndrome s/p PPM, chronic diastolic CHF, history of gastric bypass, COPD, depression, chronic anemia presented to ER with complaint ofpain x1 day. Left-sided chest pain Chest pain musculoskeletal given reproducibility Negative Troponin ECHO: Abnormal septal/apical wall motion with consistent with pacemaker activ ation, otherwise normal wall motion. Had pacemaker interrogation which revealed normal pacemaker function Pacemaker site without erythema Resolved Generalized weakness General deconditioning due to comorbidities PT OT recommends Return Home Fall precautions Chronic Atrial fibrillation H/O Tachybradycardia Syndrome S/P PPM Continue digoxin and metoprolol Continue warfarin for anticoagulation INR was 1.7 today Plan to give 5mg of warfarin today Needs to follow-up with Coumadin clinic upon discharge Monitor INR Chronic HFpEF Continue Lasix, metoprolol and potassium Monitor renal function, volume status COPD No acute exacerbation continue home inhalers Chronic anemia Baseline Hb ranges ~9 Last Hemoglobin was 8.8 monitor Depression continue zoloft Recent sacrococcygeal fracture L5-S1 anterolisthesis recent hospitalization in January for fall Conservative management as per orthopedics on prior hospitalization PT OT recommends to return Home DVT Px: Warfarin Code Status Full code PCP: Gita Disposition Home with Home Health Admission and Anticipated Discharge Date Admission Date: February 24, 2022 Subjective Patient is seen and examined at bedside No new complaints today Had minimal lower back pain which is controlled Denies any chest pain, shortness of breath, dizziness, nausea, abdominal pain Plan to be discharged home today Review of Systems Review of Systems: All systems reviewed & are unremarkable except as noted in Subjective Physical Exam Physical Exam: Physical Exam: Vitals signs as noted above General Appearance:Thin, frail, Chronic ill appearing Moderately built and nourished, no apparent distress Head: normocephalic, Atraumatic Eyes: normal inspection, EOMI Neck: supple, Trachea midline Respiratory/Chest: Normal breath sounds, CTA, No accessory muscle use Cardiovascular:Irregularly Irregular, No murmur Abdomen/GI:Soft, Non tender, Bowel sounds present Extremities/Musculoskeletal:normal inspection,B/L LE trace edema Neurologic/Psych:AAO, + hearing impairment, grossly no focal neurological deficits Skin: normal color, warm Results & Data Results & Data ([facility]) Vital Signs (Past 12 Hours) Vital Signs Temp Pulse Resp BP Pulse Ox 03/03/22 07:42 36.6 C 74 18 110/70 98 Laboratory Results Short CBC 03/03/22 Range/Units 06:59 WBC 6.31 (4.8-10.8) K/uL Hgb 8.8 L (12.0-16.0) g/dL Hct 27.4 L (37-47) % Plt Count 370 (130-400) K/uL BMP 03/03/22 06:59 Sodium 139 Potassium 4.1 Chloride 106 Carbon Dioxide 27 BUN 28 H Creatinine 0.65 Glucose 71 Calcium 7.9 L
--- NOTE | 2022-03-03 14:59 | Discharge Summary ---
Date of Service March 03, 2022 Admission HPI Per Admitting Provider Patient is 71-year-old female with PMH persistent atrial fibrillation, on warfarin, s/p DANAE guided DCCV in 10/2018 with recurrent atrial fibrillation s/p cardioversion 05/05/2020, 09/05/2020 with recurrent atrial fibrillation 12/2020, tachybrady syndrome s/p PPM, chronic diastolic CHF, history of gastric bypass, COPD, depression, chronic anemia presented to ER with complaint ofchest pain x1 day. Of significance patient was recently hospitalized 01/25-01/30 secondary to mechanical fall on her buttocks. She was found to have a minimally angulated fracture at the sacrococcygeal junction which was new. She was also found to have bilateral pars defects at L5 with advanced disc space narrowing and grade 1 anterior listhesis at L5-S1. She was seen and evaluated by orthopedic spine who recommended conservative management. She was then discharged to subacute rehab at [facility]. Patient was at rehab for approximately 9 to 10 days when she states, "my insurance kicked me out." She feels since being discharged to home that she has not been doing well. She has been becoming increasingly weak. She has been ambulating with a walker and denies any recent falls. She states her appetite is poor due to when she eats she becomes nauseous and then stops eating. She lives at home with her who is also disabled and therefore he is unable to help care for her. Therapy has been coming to the home which she feels has been helpful. This morning she woke up with left-sided chest pain. It is below her pacemaker pocket site. She was seen in clinic today for pacemaker interrogation due to chest pain was referred to ED for further evaluation. Pacemaker interrogation revealed normal dual-chamber pacemaker function with stable pacing and sensing thresholds. She was noted to be in atrial fibrillation. She states when she woke up this morning she notices left- sided chest pain. Initially it would come and go but feels it is been more constant. It is nonradiating and rated approximately a 5 out of 10. It is not made worse with deep breathing or coughing. She received Tylenol in ED which did not help symptoms. She denies any prior history of CAD or heart attack. She denies any associated diaphoresis, shortness of breath or nausea. She does have chronic shortness of breath which she feels is at her baseline. She also has chronic lower extremity swelling which she also feels is at her baseline. She does monitor her weight daily due to her history of CHF and currently she states she is down approximately 8 pounds. She has been taking her medications as scheduled. She otherwise denies any recent illness, fever, chills, sweats, lightheadedness, dizziness, syncope, shortness breath at rest, cough, hemoptysis, emesis, hematemesis, abdominal pain, constipation, dysuria, increased urgency or frequency with urination. She does have chronic loose stools secondary to dumping syndrome in setting of prior gastric bypass. In ED patient remained hemodynamically stable. Her lab work was notable for chronic anemia with a stable hemoglobin of 9.2 and 28.4, INR 1.9, BUN and creatinine 23.71, hypoalbuminemia at 2.9, initial troponin high-sensitivity negative, EKG revealed atrial fibrillation, rate controlled and no ST or T wave changes. Her chest x-ray was negative for acute cardiopulmonary abnormality. In ED she did receive some Tylenol. Admission Exam Per Admitting Provider Physical Exam Physical Exam: Constitutional: Chronically ill-appearing, female, flat affect, under nourished, vitals as above, NAD, sitting up in bed, hard of hearing Head: Normocephalic, Atraumatic Eyes: PERRL, conjunctivae normal, anicteric sclerae ENMT: external ear and nose normal, oropharynx normal dry membranes, poor dentition Neck: trachea midline, no thyromegaly normal visual inspection Respiratory: normal respiratory effort, lungs clear to auscultation, no wheeze, rales, rhonchi. Normal insp/exp effort, no accessory muscle use Cardiovascular: Regular rate, irregular rhythm, no murmur, bilateral +1 pretibial edema Vessels: no JVD or carotid bruit Chest: normal inspection of chest, left anterior chest wall pacemaker pocket site without erythema, pain to palpation medially and inferiorly to pacemaker pocket site Abdomen: normal bowel sounds, soft, nontender, no hepatosplenomegaly Musculoskeletal: no cyanosis or clubbing, active range of motion x4 Skin: no rashes, warm and dry normal turgor Neurologic: PERRL, EOMI, accommodation nl, no face palsy, no dysarthria CN's II-XI intact bilaterally and moves all extremities Psychiatric: A+Ox3, euthymic affect Lymphatic: no cervical or axillary lymphadenopathy : deferred Principal Diagnosis Lumbar anterolisthesis Subtherapeutic INR Chest pain Generalized weakness Discharge Data Allergies Allergy/AdvReac Type Severity Reaction Status Date / Time oxycodone AdvReac Intermediate GI SYMPTOMS Verified 02/22/22 16:58 Consultations 02/22/22 16:16 ED Decision to Admit Stat Hospital Course (1) Left-sided chest pain: (2) Generalized weakness: Patient is a 71 yr female with H/O Persistent atrial fibrillation, on warfarin, s/p DANAE guided DCCV in 10/2018 with recurrent atrial fibrillation s/p cardioversion 05/05/2020, 09/05/2020 with recurrent atrial fibrillation 12/2020, tachybrady syndrome s/p PPM, chronic diastolic CHF, history of gastric bypass, COPD, depression, chronic anemia presented to ER with complaint ofpain x1 day. Left-sided chest pain Chest pain musculoskeletal given reproducibility Negative Troponin ECHO: Abnormal septal/apical wall motion with consistent with pacemaker activation, otherwise normal wall motion. Had pacemaker interrogation which revealed normal pacemaker function Pacemaker site without erythema Resolved Generalized weakness General deconditioning due to comorbidities PT OT recommends Return Home Fall precautions Chronic Atrial fibrillation H/O Tachybradycardia Syndrome S/P PPM Continue digoxin and metoprolol Continue warfarin for anticoagulation INR was 1.7 today Plan to give 5mg of warfarin today Needs to follow-up with Coumadin clinic upon discharge Monitor INR Chronic HFpEF Continue Lasix, metoprolol and potassium Monitor renal function, volume status COPD No acute exacerbation continue home inhalers Chronic anemia Baseline Hb ranges ~9 Last Hemoglobin was 8.8 monitor Depression continue zoloft Recent sacrococcygeal fracture L5-S1 anterolisthesis recent hospitalization in January for fall Conservative management as per orthopedics on prior hospitalization PT OT recommends to return Home DVT Px: Warfarin Code Status Full code PCP: Gita Disposition Home with Home Health Total Time Total Time Spent Total Time Spent (In Minutes): 45 minutes Discharge Plan Discharge Items Patient Disposition: Home - Home Health Services Reason For Visit: CHEST PAIN, CHRONIC AFIB Discharge Diagnosis: Back Pain Subtherapeutic INR Chest pain Generalized weakness Activity: Per Instructions section Exercise/Sports: Gradually increase as tolerated Non-emergency contact: Primary Care Provider Call non-emergency contact if: you have any medication questions, your symptoms worsen and your pain is concerning for you Follow-up/Referrals: Russell Olvera DO [Primary Care Provider] - (Date & Time 03/09/2022 12:00 PM Provider Russell Olvera DO [facility] ) Diet: Heart Healthy Addtl Attending Provider Instructions: Follow-up with your primary care physician on 03/09/2022 12:00 PM Follow-up with Coumadin clinic in 1 week for monitoring your PT/INR and adjusting your Coumadin dose as needed. Seek immediate medical attention if your symptoms reoccur or worsen Please take all medications as instructed on discharge list below. Please call if you have any questions or problems. You can reach a [facility] hospitalist on duty at [facility] 24 hours a day by calling [phone] Pending Studies at Discharge: No Stand-Alone Forms: My [facility] [employer], Smoking Cessation Medications and DC Order Prescriptions: Continued metolazone 2.5 mg tablet 2.5 mg PO UD PRN (Reason: Edema) RF: 0 acetaminophen [Tylenol Extra Strength] 500 mg Tablet 1,000 mg PO Q8H PRN (Reason: pain) Qty: 50 RF: 0 lidocaine 5 % Adhesive Patch,Medicated 1 patch transdermal QPM Qty: 20 RF: 0 fluticasone propion-salmeterol [Advair Diskus] 250-50 mcg/dose Blister With Device 1 inh INHALATION BID 30 Days Qty: 60 RF: 0 ondansetron HCl 4 mg Tablet 4 mg PO Q12H PRN (Reason: NAUSEA/VOMITING) Qty: 15 RF: 0 warfarin 2.5 mg Tablet See Rx Instructions .ROUTE .COMPLEX Qty: 30 RF: 0 zafirlukast [Accolate] 20 mg tablet 20 mg PO BID 30 Days Qty: 60 RF: 0 digoxin [Digitek] 125 mcg (0.125 mg) tablet 125 mcg PO QAM 30 Days Qty: 30 RF: 0 albuterol sulfate [Ventolin HFA] 90 mcg/actuation Hfa Aerosol Inhaler 2 puff INHALATION QID PRN (Reason: Shortness Of Breath Or Wheezing) Qty: 8.5 RF: 0 sertraline [Zoloft] 50 mg Tablet 50 mg PO QAM 30 Days Qty: 30 RF: 0 magnesium 200 mg Tablet 200 mg PO DAILY 30 Days Qty: 30 RF: 0 Flintstones Tab Chew 100 mcg Tablet,Chewable 1 tab PO QAM 30 Days Qty: 30 RF: 0 cholecalciferol (vitamin D3) [Vitamin D3] 2,000 unit Capsule 2,000 unit PO QAM 30 Days Qty: 30 RF: 0 Vitron-C 65 mg iron- 125 mg Tablet,Delayed Release (Dr/Ec) 1 tab PO BID 30 Days Qty: 60 RF: 0 furosemide 40 mg tablet 40 mg PO DAILY RF: 0 metoprolol succinate 25 mg tablet extended release 24 hr 12.5 mg PO AMHS RF: 0 potassium chloride 20 mEq tablet,ER particles/crystals 10 meq PO DAILY RF: 0 Discharge Orders: Discharge Order (Routine); Ordered 03/03/22 Ordered By: Hima Mclain Admission Data Admit Date/Time: 02/24/22 14:03 Attending Provider: Hima Mclain Admit Provider: Hipolito Lopez Primary Care Provider: Russell Olvera Other Providers: Hipolito Lopez ; Canelo Ballesteros [facility] ; [facility] ; Hima Mclain
[2022-03-03] MEDS ORDERED: WARFARIN SOD 5 MG TAB PO SCH (16:00)
[2022-03-03] MEDS: DIGOXIN 0.125 MG TAB PO SCH (16:02)
== END 2022-03-03 16:33 | disposition home health service (06) | DRG 313 ==
LOC: ED 13:41 → 2S 13:41 → SUATTDRO 16:27 → 2S 17:37 → SUATTDRO 02-24 14:03 → 3W 02-27 10:17

== ENCOUNTER 2022-04-09 12:18 | Inpatient (IN) ==
[2022-04-09 13:43] LABS: Basophils # (auto) 0.03 K/uL (0-0.2); Basophils % (auto) 0.4 %; Eosinophils # (auto) 0.39 K/uL (0-0.5); Hematocrit (blood only) 36.4 % (37-47); Hemoglobin 11.6 g/dL (12.0-16.0); Immature Granulocytes # (auto) 0.01 K/uL (0.00-0.02); Immature Granulocytes % (auto) 0.1 %; Lymphocytes # (auto) 1.53 K/uL (1.2-3.4); Lymphocytes % (auto) 19.7 %; Mean Corpuscular Hemoglobin 30.4 pg (25-34); Mean Corpuscular Hgb Conc 31.9 g/dL (32-36); Mean Corpuscular Volume 95.5 fL (80-100); Mean Platelet Volume 10.3 fL (7.4-10.4); Monocytes # (auto) 0.28 K/uL (0.11-0.59); Monocytes % (auto) 3.6 %; Neutrophils # (auto) 5.52 K/uL (1.4-6.5); Neutrophils % (auto) 71.2 %; Platelet Count 319 K/uL (130-400); RDW Coefficient of Variation 17.3 % (11.5-14.5); RDW Standard Deviation 60.6 fL (36.4-46.3); Red Blood Count 3.81 M/uL (4.2-5.4); White Blood Count 7.76 K/uL (4.8-10.8)
[2022-04-09 13:52] LABS: INR 2.9 (0.9-1.1); Prothrombin Time 29.3 Seconds (9.0-12.0)
[2022-04-09 14:06] LABS: Appearance Urine Cloudy (Clear); Bacteria Urine Automated 1+ (Negative); Bilirubin Urine Negative (Negative); Blood Urine Negative (Negative); Color Urine Dark Yellow; Epithelial Cell Urine Auto >30 /lpf (0-5); Glucose Urine UA Negative (Negative); Ketones Urine 1+ (Negative); Leukocyte Esterase Urine 1+ (Negative); Nitrite Urine Positive (Negative); Protein Urine Trace (Negative); RBC Urine Automated 0-4 /hpf (0-4); Specific Gravity Urine 1.038 (1.000-1.030); Urobilinogen Urine Negative (Negative)
[2022-04-09 14:08] LABS: Anion Gap 6 (3-11); BUN Creatinine Ratio 27.3 (10-20); Blood Urea Nitrogen 21 mg/dl (6-23); Calcium 8.2 mg/dl (8.5-10.1); Carbon Dioxide 29 mmol/L (21-32); Chloride 107 mmol/L (98-107); Est GFR (African American) 91.3 ml/min; Est GFR (Non-African American) 78.8 ml/min; Glucose 127 mg/dl (70-99(Fasting)); Potassium 3.7 mmol/L (3.5-5.1); Sodium 142 mmol/L (136-145)
[2022-04-09 14:09] LABS: Alanine Aminotransferase 25 U/L (7-52); Albumin Globulin Ratio 1.2 (0.9-2); Albumin Level 3.3 gm/dl (3.4-5.0); Alkaline Phosphatase 268 U/L (34-104); Aspartate Aminotransferase 23 U/L (13-39); Bilirubin,Total 0.7 mg/dl (0.2-1.0); Globulin 2.7 gm/dl (2.5-4.0)
[2022-04-09] MEDS ORDERED: ONDANSETRON INJ 2 MG/ML 2 ML VIAL IV STA (14:29)
[2022-04-09] MEDS ORDERED: MoRPHine SULFATE 4 MG/ML 1 ML CARP\\VIAL IV STA ×2 (14:29→16:03)
--- NOTE | 2022-04-09 17:12 | Emergency Department Note ---
History of Present Illness General Chief complaint: Hip Pain Stated complaint: HIP PAIN, TAILBONE, LEG PAIN Time Seen by Provider: 04/09/22 12:47 Source: patient Mode of arrival: ambulatory Limitations: no limitations History of Present Illness Maximum Pain Intensity: 8 This patient is a 71-year-old female who presents to the emergency department for evaluation of severe back pain and hip pain. Patient reports that she has back pain radiating into her hips and legs. Pain has been ongoing for a few weeks. She states that she cannot take the pain any longer. She is only able to stand for about a minute at a time due to the severe pain. She does report a sensation of weakness in her legs. She had been seen by her PCP today for this pain. They referred her to orthopedics and she was able to see them today as well. They referred her here because "they could not do anything more for me." Patient was prescribed gabapentin and oxycodone. She has tried the oxycodone without any improvement of pain. She was on tramadol previously to this. She denies any bowel/bladder incontinence, fevers or abdominal pain. She rates her discomfort an 8/10. Home Medications Medication Instructions Recorded Confirmed Type metolazone 2.5 mg tablet 2.5 mg PO UD PRN 01/25/22 04/09/22 History acetaminophen 500 mg tablet 1,000 mg PO Q8H PRN #50 tab 01/30/22 04/09/22 Rx (Tylenol Extra Strength) albuterol sulfate 90 mcg/actuation 2 puff INHALATION QID PRN #8.5 g 01/30/22 04/09/22 Rx aerosol inhaler (Ventolin HFA) cholecalciferol (vitamin D3) 50 2,000 unit PO QAM 30 Days #30 cap 01/30/22 04/09/22 Rx mcg (2,000 unit) capsule (Vitamin D3) digoxin 125 mcg (0.125 mg) tablet 125 mcg PO QAM 30 Days #30 tab 01/30/22 04/09/22 Rx (Digitek) fluticasone 250 mcg-salmeterol 50 1 inh INHALATION BID 30 Days #60 ea 01/30/22 04/09/22 Rx mcg/dose blistr powdr for inhalation (Advair Diskus) iron,carbonyl 65 mg-vitamin C 125 1 tab PO BID 30 Days #60 tab 01/30/22 04/09/22 Rx mg tablet,delayed release (Vitron-C) lidocaine 5 % topical patch 1 patch TRANSDERMAL QPM #20 ea 01/30/22 04/09/22 Rx magnesium 200 mg tablet 200 mg PO DAILY 30 Days #30 tab 01/30/22 04/09/22 Rx ondansetron HCl 4 mg tablet 4 mg PO Q12H PRN #15 tab 01/30/22 04/09/22 Rx pediatric multivitamin no.7-folic 1 tab PO QAM 30 Days #30 tab 01/30/22 04/09/22 Rx acid 100 mcg chewable tablet (Flintstones Tab Chew) sertraline 50 mg tablet (Zoloft) 50 mg PO QAM 30 Days #30 tab 01/30/22 04/09/22 Rx warfarin 2.5 mg tablet See Rx Instructions .ROUTE 01/30/22 04/09/22 Rx .COMPLEX #30 tab zafirlukast 20 mg tablet (Accolate) 20 mg PO BID 30 Days #60 tab 01/30/22 04/09/22 Rx furosemide 40 mg tablet 60 mg PO DAILY 02/22/22 04/09/22 History metoprolol succinate 25 mg 12.5 mg PO AMHS 02/22/22 04/09/22 History tablet,extended release 24 hr potassium chloride 20 mEq 10 meq PO DAILY 02/22/22 04/09/22 History tablet,extended release(part/cryst) gabapentin 100 mg PO TID 04/09/22 04/09/22 History oxycodone 5 mg tablet 5 mg PO Q6H PRN 04/09/22 04/09/22 History Allergies Allergy/AdvReac Type Severity Reaction Status Date / Time oxycodone AdvReac Intermediate GI SYMPTOMS Verified 02/22/22 16:58 Past Med/Surg History Medical History A-fib S/P DANAE guided DCCV 10/2018. Reverted back to afib 03/2020. External DCCV 04/23/20. 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 Ivey S/P appendectomy S/P small bowel resection Family History Other Cancer Hypertension Lung disease No family history of adverse response to anesthesia Social History Smoking Status: Never smoker Second Hand Exposure: No; Hx Alcohol Use: Yes Alcohol type: beer Alcohol Intake Frequency: Monthly or Less Hx Substance Use: No Preferred Language: Mohawk Communication Ability: Effective Production Support Supervisor Required: No Beliefs That Will Affect Care: None marital status: Current Living Situation: Spouse Current Living Situation Comment: lives in first floor apartment with has one step to enter current occupational status: employed Other Information That Helps Us Care for You: Yes ( disabled; limited ability help to cook and care for) Feels Safe at Home: Yes Safety Concerns: Feels Safe At This Time Assistive Devices: Walker Review of Systems A total of 10 systems reviewed and were otherwise negative Physical Exam Vital Signs Vital Signs - 24 hr 04/09/22 17:36 04/09/22 18:40 Pulse Rate [Right] 81 73 Respiratory Rate 16 16 Blood Pressure [Right Arm] 110/72 108/64 Blood Pressure Mean [Right Arm] 84 78 Blood Pressure Position [Right Arm] Lying Pulse Oximetry 100 99 Oxygen Delivery Method Room Air Room Air VITALS: Vitals are noted on the nurse's note and reviewed by myself. GENERAL: This is a 71-year-old female, sitting at the edge of the bed, sobbing in pain. SKIN: The skin was without rashes. EYES: Pupils equal round and reactive to light and accommodation. MOUTH: Mucous membranes moist. NECK: Supple without nuchal rigidity. HEART: Regular rate and rhythm without murmurs gallops or rubs. LUNGS: Clear to auscultation bilaterally without wheezes, rales or rhonchi. ABDOMEN: Positive bowel sounds x 4. Soft, nontender. MUSCULOSKELETAL: No deformities. There is generalized tenderness to palpation of the low back. Decreased strength of the left lower extremity compared to the right. NEURO: Patient was alert and oriented to person place and time. Distal sensation intact. Course Administered Medications Acetaminophen (Acetaminophen 325 Mg Tab) 650 mg PO Q4H PRN PRN Reason: pain/fever Stop: 05/09/22 21:20 Last Admin: 04/09/22 22:26 Dose: 650 mg Documented by: [id number] Ascorbic Acid (Ascorbic Acid 500 Mg Tab) 250 mg PO BID ISHAN Stop: 05/09/22 21:20 Last Admin: 04/10/22 09:09 Dose: 250 mg Documented by: [id number] Admin: 04/09/22 22:33 Dose: 250 mg Documented by: [id number] Digoxin (Digoxin 0.125 Mg Tab) 0.125 mg PO QAM ISHAN Stop: 05/10/22 08:59 Last Admin: 04/10/22 09:16 Dose: 0.125 mg Documented by: [id number] Ferrous Sulfate (Ferrous Sulfate 325 Mg Tab) 325 mg PO BID ISHAN Stop: 05/09/22 21:20 Last Admin: 04/10/22 09:10 Dose: 325 mg Documented by: [id number] Admin: 04/09/22 22:36 Dose: 325 mg Documented by: [id number] Fluticasone/Vilanterol (Fluticasone/Vilanterol 100/25mcg 14 Puffs/Inhaler) 1 puffs INH DAILY ISHAN Stop: 05/10/22 08:59 Last Admin: 04/10/22 09:11 Dose: 1 puffs Documented by: [id number] Furosemide (Furosemide 20 Mg Tab) 60 mg PO DAILY ISHAN Stop: 05/10/22 08:59 Last Admin: 04/10/22 09:11 Dose: 60 mg Documented by: [id number] Gabapentin (Gabapentin 100 Mg Cap) 100 mg PO TID ISHAN Stop: 05/09/22 21:20 Last Admin: 04/10/22 13:46 Dose: 100 mg Documented by: [id number] Admin: 04/10/22 09:12 Dose: 100 mg Documented by: [id number] Admin: 04/09/22 22:36 Dose: 100 mg Documented by: [id number] Ceftriaxone Sodium 1,000 mg/ (Dextrose) 60 mls @ 100 mls/hr IV DAILY ISHAN; Protocol Stop: 04/15/22 08:59 Last Infusion: 04/10/22 10:58 Dose: 0 mls/hr Documented by: [id number] Admin: 04/10/22 09:25 Dose: 100 mls/hr Documented by: [id number] Lidocaine (Lidocaine 5% 1 Patch) 1 patch TD QPM [facility] Stop: 05/09/22 21:20 Last Admin: 04/09/22 22:35 Dose: 1 patch Documented by: [id number] Magnesium Oxide (Magnesium Oxide 400 Mg Tab) 400 mg PO DAILY [facility] Stop: 05/10/22 08:59 Last Admin: 04/10/22 09:12 Dose: 400 mg Documented by: [id number] Metoprolol Succinate (Metoprolol Succ 25mg Ext Rel Tab) 12.5 mg PO AMHS [facility] Stop: 05/09/22 21:20 Last Admin: 04/10/22 09:13 Dose: Not Given Documented by: [id number] Admin: 04/09/22 22:41 Dose: Not Given Documented by: [id number] Miscellaneous (Remove Lidoderm Patch) 1 ea N/A DAILY@0900 [facility] Stop: 05/09/22 21:20 Last Admin: 04/10/22 10:58 Dose: 1 ea Documented by: [id number] Admin: 04/09/22 22:24 Dose: Not Given Documented by: [id number] Miscellaneous (Accolate - Order Awaiting Action) 1 ea N/A QS [facility] Stop: 05/10/22 00:00 Last Admin: 04/10/22 15:26 Dose: Not Given Documented by: [id number] Admin: 04/10/22 09:08 Dose: Not Given Documented by: [id number] Admin: 04/09/22 23:03 Dose: Not Given Documented by: [id number] Multivitamins/Folic Acid/Vitamin C (Multivitamin Chewable Tab) 1 tab PO QAM [facility] Stop: 05/10/22 08:59 Last Admin: 04/10/22 09:13 Dose: 1 tab Documented by: [id number] Ondansetron HCl (Ondansetron Inj 2 Mg/Ml 2 Ml Vial) 4 mg IV Q6H PRN PRN Reason: Nausea Stop: 05/09/22 21:20 Last Admin: 04/10/22 09:48 Dose: 4 mg Documented by: [id number] Potassium Chloride (Potassium Chloride 10 Meq Tabcr) 10 meq PO DAILY [facility] Stop: 05/10/22 08:59 Last Admin: 04/10/22 09:14 Dose: 10 meq Documented by: [id number] Sertraline HCl (Sertraline Hcl 50 Mg Tablet) 50 mg PO QAM [facility] Stop: 05/10/22 08:59 Last Admin: 04/10/22 09:14 Dose: 50 mg Documented by: [id number] Vitamin D (Cholecalciferol 1,000 Units 25 Mcg Tab) [facility] [place] Stop: 05/10/22 08:59 Last Admin: 04/10/22 09:10 Dose: 2,000 units Documented by: [id number] Warfarin Sodium (Warfarin Sod 1 Mg Tab) 1 mg PO DAILY@1600 [facility] Stop: 05/10/22 15:59 Last Admin: 04/10/22 15:54 Dose: 1 mg Documented by: [id number] Discontinued Medications Ceftriaxone Sodium (Rocephin) 1,000 mg in 50 mls @ 100 mls/hr IV NOW STA Stop: 04/09/22 18:25 Last Infusion: 04/09/22 19:08 Dose: 0 mls/hr Documented by: [id number] Admin: 04/09/22 18:38 Dose: 100 mls/hr Documented by: [id number] Morphine Sulfate (Morphine Sulfate 4 Mg/Ml 1 Ml Carp\\Vial) 4 mg IV NOW STA Stop: 04/09/22 14:30 Last Admin: 04/09/22 14:46 Dose: 4 mg Documented by: [id number] Morphine Sulfate (Morphine Sulfate 4 Mg/Ml 1 Ml Carp\\Vial) 4 mg IV NOW STA Stop: 04/09/22 16:04 Last Admin: 04/09/22 16:12 Dose: 4 mg Documented by: [id number] Ondansetron HCl (Ondansetron Inj 2 Mg/Ml 2 Ml Vial) 4 mg IV NOW STA Stop: 04/09/22 14:30 Last Admin: 04/09/22 14:44 Dose: 4 mg Documented by: [id number] Medical Decision Making Differential Diagnosis Differential diagnosis includes cauda equina syndrome, cord compression, disc herniation, muscle spasm, lumbar strain, epidural abscess, malignancy, transverse myelitis, urinary tract infection, colitis, diverticulitis, kidney stone, among others. Home Medications Current Medication List: was personally reviewed by me Laboratory Data Attestation: I reviewed the patient's lab results. Result diagrams: 04/10/22 07:43 04/10/22 08:31 Lab Results 04/09/22 04/09/22 04/09/22 Range/Units 13:25 13:25 13:25 WBC 7.76 (4.8-10.8) K/uL RBC 3.81 L (4.2-5.4) M/uL Hgb 11.6 L (12.0-16.0) g/dL Hct 36.4 L (37-47) % MCV 95.5 (80-100) fL MCH 30.4 (25-34) pg MCHC 31.9 L (32-36) g/dL RDW Std Deviation 60.6 H (36.4-46.3) fL RDW Coeff of Saman 17.3 H (11.5-14.5) % Plt Count 319 (130-400) K/uL MPV 10.3 (7.4-10.4) fL Immature Gran % (Auto) 0.1 % Neut % (Auto) 71.2 % Lymph % (Auto) 19.7 % Lamb % (Auto) 3.6 % Eos % (Auto) 5.0 % Baso % (Auto) 0.4 % Neut # (Auto) 5.52 (1.4-6.5) K/uL Lymph # (Auto) 1.53 (1.2-3.4) K/uL Lamb # (Auto) 0.28 (0.11-0.59) K/uL Eos # (Auto) 0.39 (0-0.5) K/uL Baso # (Auto) 0.03 (0-0.2) K/uL Immature Gran # (Auto) 0.01 (0.00-0.02) K/uL PT 29.3 H (9.0-12.0) Seconds INR 2.9 H (0.9-1.1) Sodium 142 (136-145) mmol/L Potassium 3.7 (3.5-5.1) mmol/L Chloride 107 (98-107) mmol/L Carbon Dioxide 29 (21-32) mmol/L Anion Gap 6 (3-11) BUN 21 (6-23) mg/dl Creatinine 0.77 (0.6-1.2) mg/dl Est Cr Clr Drug Dosing Not Reportable Est GFR ( Amer) 91.3 ml/min Est GFR (Non-Af Amer) 78.8 ml/min BUN/Creatinine Ratio 27.3 H (10-20) Glucose 127 H (70-99(Fasting)) mg/dl Calcium 8.2 L (8.5-10.1) mg/dl Total Bilirubin 0.7 (0.2-1.0) mg/dl AST 23 (13-39) U/L ALT 25 (7-52) U/L Alkaline Phosphatase 268 H (34-104) U/L Total Protein 6.0 (6.0-8.3) gm/dl Albumin 3.3 L (3.4-5.0) gm/dl Globulin 2.7 (2.5-4.0) gm/dl Albumin/Globulin Ratio 1.2 (0.9-2) Urine Color Urine Appearance (Clear) Urine pH (4.5-7.5) Ur Specific [place] (1.000-1.030) Urine Protein (Negative) Urine Glucose (UA) (Negative) Urine Ketones (Negative) Urine Blood (Negative) Urine Nitrite (Negative) Urine Bilirubin (Negative) Urine Urobilinogen (Negative) Ur Leukocyte Esterase (Negative) Urine WBC (Auto) (0-5) /hpf Urine RBC (Auto) (0-4) /hpf U Hyaline Cast (Auto) (0-5) /lpf U Epithel Cells (Auto) (0-5) /lpf Urine Bacteria (Auto) (Negative) Urine Yeast SARS-CoV-2, RNA, NAAT (NEGATIVE) 04/09/22 04/09/22 Range/Units 13:25 18:16 WBC (4.8-10.8) K/uL RBC (4.2-5.4) M/uL Hgb (12.0-16.0) g/dL Hct (37-47) % MCV (80-100) fL MCH (25-34) pg MCHC (32-36) g/dL RDW Std Deviation (36.4-46.3) fL RDW Coeff of Saman (11.5-14.5) % Plt Count (130-400) K/uL MPV (7.4-10.4) fL Immature Gran % (Auto) % Neut % (Auto) % Lymph % (Auto) % Lamb % (Auto) % Eos % (Auto) % Baso % (Auto) % Neut # (Auto) (1.4-6.5) K/uL Lymph # (Auto) (1.2-3.4) K/uL Lamb # (Auto) (0.11-0.59) K/uL Eos # (Auto) (0-0.5) K/uL Baso # (Auto) (0-0.2) K/uL Immature Gran # (Auto) (0.00-0.02) K/uL PT (9.0-12.0) Seconds INR (0.9-1.1) Sodium (136-145) mmol/L Potassium (3.5-5.1) mmol/L Chloride (98-107) mmol/L Carbon Dioxide (21-32) mmol/L Anion Gap (3-11) BUN (6-23) mg/dl Creatinine (0.6-1.2) mg/dl Est Cr Clr Drug Dosing Est GFR ( Amer) ml/min Est GFR (Non-Af Amer) ml/min BUN/Creatinine Ratio (10-20) Glucose (70-99(Fasting)) mg/dl Calcium (8.5-10.1) mg/dl Total Bilirubin (0.2-1.0) mg/dl AST (13-39) U/L ALT (7-52) U/L Alkaline Phosphatase (34-104) U/L Total Protein (6.0-8.3) gm/dl Albumin (3.4-5.0) gm/dl Globulin (2.5-4.0) gm/dl Albumin/Globulin Ratio (0.9-2) Urine Color Dark Yellow Urine Appearance Cloudy A (Clear) Urine pH 5.0 (4.5-7.5) Ur Specific [place] 1.038 H (1.000-1.030) Urine Protein Trace H (Negative) Urine Glucose (UA) Negative (Negative) Urine Ketones 1+ H (Negative) Urine Blood Negative (Negative) Urine Nitrite Positive A (Negative) Urine Bilirubin Negative (Negative) Urine Urobilinogen Negative (Negative) Ur Leukocyte Esterase 1+ H (Negative) Urine WBC (Auto) 10-30 H (0-5) /hpf Urine RBC (Auto) 0-4 (0-4) /hpf U Hyaline Cast (Auto) 1-5 (0-5) /lpf U Epithel Cells (Auto) >30 H (0-5) /lpf Urine Bacteria (Auto) 1+ H (Negative) Urine Yeast Not Reportable SARS-CoV-2, RNA, NAAT NEGATIVE (NEGATIVE) Imaging Data Attestation: I personally reviewed and interpreted this imaging study as follows: Radiologist's Impression: Lumbar Spine MRI 04/09/22 00:00 MR lumbar spine wo con CLINICAL HISTORY: low back pain with radiculopathy TECHNIQUE: Multiplanar sequences through the lumbar spine were obtained, without intravenous contrast. Comparison: Comparison is made to lumbar spine MRI 01/26/2022 FINDINGS: Grade 1 anterolisthesis of L5-S1 again noted. Bilateral pars defects are noted. Degenerative changes are noted in the discs and vertebral bodies. L1-L2: No significant abnormality. L2-L3: Small posterior disc bulge is seen with no significant canal or neuroforaminal stenosis. L3-L4: Small posterior disc bulge without significant canal or neural foraminal stenosis. L4-L5: Small posterior disc bulge without significant canal or neural foraminal stenosis. L5-S1: Anterolisthesis and small posterior disc bulge is seen with severe left and mild right neural foraminal stenosis. The spinal ligaments are intact, without evidence of disruption or abnormal signal intensity. The spinal cord is normal in signal intensity and there is no evidence of cord contusion. There is no evidence of an extradural, intradural, extramedullary or intramedullary lesion. Visualized soft tissues are normal. IMPRESSION: Unchanged appearance of degenerative changes with up to severe left and mild right neural foraminal stenosis. ACT 112: Negative or not required by law. Electronically signed by: Jose Elias Márquez M.D. 04/09/2022 5:46 PM MDM Narrative The patient is a 71-year-old female who presents today for evaluation of intractable back/hip pain. Patient has been experiencing this for the past 2 weeks. She was seen by her PCP today and was sent down to the orthopedics office where she was also seen. She was sent here due to intractable pain for possible admission. MRI of the lumbar spine and pelvis were performed. Urinalysis was suggestive of UTI, this was treated with Rocephin. Labs were otherwise unremarkable. Patient required multiple doses of morphine. She has failed outpatient therapy with oxycodone. She has not been able to stand for more than a minute at a time and it sounds like she is not doing well taking care of herself at home. She will be admitted for further evaluation/care and possible placement. Case was discussed with the [facility] service. Impression & Plan Intractable low back pain, UTI (urinary tract infection) Discharge Plan Visit Data Chief Complaint: Hip Pain Stated Complaint: HIP PAIN, TAILBONE, LEG PAIN ED Provider: Ange Taylor ED Midlevel Provider: Grisel Amaral Discharge Problem: Intractable low back pain, UTI (urinary tract infection) Patient Disposition: Admitted As Inpatient Discharge Instructions Interventions: ED Discharge Assessment Last Done: 04/09/22 20:48 Discharge Problem: UTI (urinary tract infection) Qualifiers: Urinary tract infection type: site unspecified Hematuria presence: without hematuria Qualified Code(s): N39.0 - Urinary tract infection, site not specified
--- NOTE | 2022-04-09 17:49 | Magnetic Resonance Report ---
MR lumbar spine wo con CLINICAL HISTORY: low back pain with radiculopathy TECHNIQUE: Multiplanar sequences through the lumbar spine were obtained, without intravenous contrast . Comparison: Comparison is made to lumbar spine MRI 01/26/2022 FINDINGS: Grade 1 anterolisthesis of L5-S1 again noted. Bilateral pars defects are noted. Degenerative changes are noted in the discs and vertebral bodies. L1-L2: No significant abnormality. L2-L3: Small posterior disc bulge is seen with no significant canal or neuroforaminal stenosis. L3-L4: Small posterior disc bulge without significant canal or neural foraminal stenosis. L4-L5: Small posterior disc bulge without significant canal or neural foraminal stenosis. L5-S1: Anterolisthesis and small posterior disc bulge is seen with severe left and mild right neural foraminal stenosis. The spinal ligaments are intact, without evidence of disruption or abnormal signal intensity. The spi nal cord is normal in signal intensity and there is no evidence of cord contusion. There is no eviden ce of an extradural, intradural, extramedullary or intramedullary lesion. Visualized soft tissues are normal. IMPRESSION: Unchanged appearance of degenerative changes with up to severe left and mild right neural foraminal s tenosis. ACT 112: Negative or not required by law. Electronically signed by: Jose Elias Márquez M.D. 04/09/2022 5:46 PM
[2022-04-09] MEDS ORDERED: cefTRIAXone SODIUM 1,000 MG/50 ML BAG IV STA (17:56)
--- NOTE | 2022-04-09 18:21 | Magnetic Resonance Report ---
MR pelvis wo con CLINICAL HISTORY: avascular necrosis, b/l hip pain TECHNIQUE: Multiplanar multisequence images were obtained of the abdomen with and without the adminis tration of contrast. COMPARISON: Comparison is made to CT pelvis 01/25/2022 and MRI lumbar spine 01/26/2022 FINDINGS: Bowel: Unremarkable. Lymph nodes: Unremarkable. Bladder: Unremarkable. Reproductive organs: Unremarkable. Vessels: Unremarkable. Abdominal wall: Unremarkable. Bones: Edema is seen in the bilateral sacral ala. No definite evidence of a cortical irregularity is seen to suggest acute fracture. IMPRESSION: Bilateral sacral alar edema is seen, new from prior exam. Findings may represent insufficiency fractu re, acute to subacute. An infectious etiology is considered less likely in the absence of surrounding soft tissue stranding, however cannot be entirely excluded. ACT 112: Negative or not required by law. Electronically signed by: Jose Elias Márquez M.D. 04/09/2022 6:19 PM
--- NOTE | 2022-04-09 18:46 | History & Physical Report ---
Date of Service April 09, 2022 Assessment & Plan (1) Closed sacral fracture: Plan: Recent sacrococcygeal fracture L5-S1 anterolisthesis Ambulatory dysfunction --Pelvic MRI:Bilateral sacral alar edema is seen, new from prior exam. Findings may represent insufficiency fracture, acute to subacute. An infectious etiology is considered less likely in the absence of surrounding soft tissue stranding, however cannot be entirely excluded. --Lumbar MRI:Unchanged appearance of degenerative changes with up to severe left and mild right neural foraminal stenosis. Fall precautions PT OT Pain management consulted Also consulted orthopedics Dr. Payne for input May need brace Continue gabapentin Pain control Abnormal urinalysis Rule out UTI Empirically started on Rocephin Follow-up urine culture Chronic Atrial fibrillation H/O Tachybradycardia Syndrome S/P PPM Continue digoxin, metoprolol Continue warfarin Monitor INR 2.9 Chronic HFpEF Continue Lasix, metoprolol and potassium Monitor renal function, volume status No signs of decompensation COPD No acute exacerbation continue home inhalers Depression continue zoloft DVT Px: Coumadin Code Status Full Code Disposition PT/OT prior to discharge History of Present Illness Chief Complaint: Hip Pain Primary Care Provider: Russell Olvera DO Patient is a 71-year-old female with history of CHF, COPD, GERD, hearing impairment, tachybradycardia syndrome S/P Pacer, essential tremor, history of gastric bypass, chronic anticoagulation with Coumadin, depression, protein calorie malnutrition, hypertensive heart disease and other medical problems who was recently hospitalized at [facility] for management of sacrococcygeal fracture, Lumbar anterolisthesis was treated conservatively and discharged to rehab facility. Patient was discharged home from rehab facility and was provided home health with home PT. Patient states having significant hip pain from waist down to her legs resulting in inability to stand, ambulate. She describes the pain as sharp, constant, and worsens with movement. She was evaluated by PCP and was started on gabapentin which she did not start the medication yet. She tried tramadol, oxycodone but still was not able to control the pain and so came to ED for further evaluation. She denies any fall at home. Also reports having poor appetite, dyspnea on exertion which is chronic. Patient has [facility] at home. She was evaluated by orthopedics as an outpatient who recommended conservative management. Denies any history of chest pain, dyspnea at rest, orthopnea, PND, cough, fever, chills, headache, numbness, change in vision, nausea, vomiting, abdominal pain, diarrhea, dysuria, hematuria. Allergies Allergy/AdvReac Type Severity Reaction Status Date / Time oxycodone AdvReac Intermediate GI SYMPTOMS Verified 02/22/22 16:58 Home Medications Medication Instructions Recorded Confirmed Type metolazone 2.5 mg tablet 2.5 mg PO UD PRN 01/25/22 04/09/22 History acetaminophen 500 mg tablet 1,000 mg PO Q8H PRN #50 tab 01/30/22 04/09/22 Rx (Tylenol Extra Strength) albuterol sulfate 90 mcg/actuation 2 puff INHALATION QID PRN #8.5 g 01/30/22 04/09/22 Rx aerosol inhaler (Ventolin HFA) cholecalciferol (vitamin D3) 50 2,000 unit PO QAM 30 Days #30 cap 01/30/22 04/09/22 Rx mcg (2,000 unit) capsule (Vitamin D3) digoxin 125 mcg (0.125 mg) tablet 125 mcg PO QAM 30 Days #30 tab 01/30/22 04/09/22 Rx (Digitek) fluticasone 250 mcg-salmeterol 50 1 inh INHALATION BID 30 Days #60 ea 01/30/22 04/09/22 Rx mcg/dose blistr powdr for inhalation (Advair Diskus) iron,carbonyl 65 mg-vitamin C 125 1 tab PO BID 30 Days #60 tab 01/30/22 04/09/22 Rx mg tablet,delayed release (Vitron-C) lidocaine 5 % topical patch 1 patch TRANSDERMAL QPM #20 ea 01/30/22 04/09/22 Rx magnesium 200 mg tablet 200 mg PO DAILY 30 Days #30 tab 01/30/22 04/09/22 Rx ondansetron HCl 4 mg tablet 4 mg PO Q12H PRN #15 tab 01/30/22 04/09/22 Rx pediatric multivitamin no.7-folic 1 tab PO QAM 30 Days #30 tab 01/30/22 04/09/22 Rx acid 100 mcg chewable tablet (Flintstones Tab Chew) sertraline 50 mg tablet (Zoloft) 50 mg PO QAM 30 Days #30 tab 01/30/22 04/09/22 Rx warfarin 2.5 mg tablet See Rx Instructions .ROUTE 01/30/22 04/09/22 Rx .COMPLEX #30 tab zafirlukast 20 mg tablet (Accolate) 20 mg PO BID 30 Days #60 tab 01/30/22 04/09/22 Rx furosemide 40 mg tablet 60 mg PO DAILY 02/22/22 04/09/22 History metoprolol succinate 25 mg 12.5 mg PO AMHS 02/22/22 04/09/22 History tablet,extended release 24 hr potassium chloride 20 mEq 10 meq PO DAILY 02/22/22 04/09/22 History tablet,extended release(part/cryst) gabapentin 100 mg PO TID 04/09/22 04/09/22 History oxycodone 5 mg tablet 5 mg PO Q6H PRN 04/09/22 04/09/22 History Past Med/Surg History Medical History A-fib S/P DANAE guided DCCV 10/2018. Reverted back to afib 03/2020. External DCCV 04/23/20. 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 Ivey S/P appendectomy S/P small bowel resection Family History Other Cancer Hypertension Lung disease No family history of adverse response to anesthesia Social History Smoking Status: Never smoker Second Hand Exposure: No; Hx Alcohol Use: No Hx Substance Use: No Preferred Language: Surinamese Communication Ability: Effective It Support Consultant Required: No Beliefs That Will Affect Care: None marital status: Current Living Situation: Spouse Current Living Situation Comment: lives in first floor apartment with has one step to enter current occupational status: employed Feels Safe at Home: Yes Assistive Devices: Cane Review of Systems Review of Systems: All systems reviewed & are unremarkable except as noted in HPI & below Physical Exam Physical Exam: Physical Exam: Vitals signs as noted above General Appearance:Thin, frail, Chronic ill appearing, +Hearing impairment, No distress Head: normocephalic, Atraumatic Eyes: normal inspection, EOMI Neck: supple, Trachea midline Respiratory/Chest: Normal breath sounds, CTA, No accessory muscle use Cardiovascular:Irregularly Irregular, No murmur Abdomen/GI:Soft, Non tender, Bowel sounds present Extremities/Musculoskeletal:normal inspection,1+ B/L LE edema Neurologic/Psych:AAOX3, grossly no focal neurological deficits, decreased ROM due to hip pain Skin: normal color, warm Results & Data Results & Data ([facility]) Vital Signs (Past 12 Hours) Vital Signs Temp Pulse Pulse Resp BP BP Pulse Ox 04/09/22 18:40 73 16 108/64 99 04/09/22 17:36 81 16 110/72 100 04/09/22 14:46 69 16 105/69 98 04/09/22 12:25 36.3 C L 87 20 104/73 100 Laboratory Results Short CBC 04/09/22 Range/Units 13:25 WBC 7.76 (4.8-10.8) K/uL Hgb 11.6 L (12.0-16.0) g/dL Hct 36.4 L (37-47) % Plt Count 319 (130-400) K/uL BMP 04/09/22 13:25 Sodium 142 Potassium 3.7 Chloride 107 Carbon Dioxide 29 BUN 21 Creatinine 0.77 Glucose 127 H Calcium 8.2 L Liver Function 04/09/22 Range/Units 13:25 Total Bilirubin 0.7 (0.2-1.0) mg/dl AST 23 (13-39) U/L ALT 25 (7-52) U/L Alkaline Phosphatase 268 H (34-104) U/L Albumin 3.3 L (3.4-5.0) gm/dl Urine 04/09/22 Range/Units 13:25 Urine Color Dark Yellow Urine Appearance Cloudy A (Clear) Urine pH 5.0 (4.5-7.5) Ur Specific [place] 1.038 H (1.000-1.030) Urine Protein Trace H (Negative) Urine Glucose (UA) Negative (Negative) Diagnostic Findings Pelvic MRI: Bilateral sacral alar edema is seen, new from prior exam. Findings may represent insufficiency fracture, acute to subacute. An infectious etiology is considered less likely in the absence of surrounding soft tissue stranding, however cannot be entirely excluded. Lumbar MRI: Unchanged appearance of degenerative changes with up to severe left and mild right neural foraminal stenosis. (1) Closed sacral fracture Encounter type: initial encounter Zone of sacrum fracture: unspecified portion of sacrum Qualified Code(s): S32.10XA - Unspecified fracture of sacrum, initial encounter for closed fracture
[2022-04-09] MEDS ORDERED: ONDANSETRON INJ 2 MG/ML 2 ML VIAL IV PRN (21:21)
[2022-04-09] MEDS ORDERED: ALBUTEROL HFA 8 GM INHALER INH PRN (21:21)
[2022-04-09] MEDS ORDERED: MoRPHine SULFATE 2 MG/ML CARP IV PRN (21:21)
[2022-04-09] MEDS ORDERED: POLYETHYLENE (MIRALAX) 17 GM PACK PO PRN (21:21)
[2022-04-09] MEDS ORDERED: oxyCODONE HCL IR 5 MG TAB (IMMEDIATE RELEASE) PO PRN (21:21)
[2022-04-09] MEDS: ACETAMINOPHEN 325 MG TAB PO PRN (22:26)
[2022-04-09] MEDS: ASCORBIC ACID 500 MG TAB PO SCH (22:33)
[2022-04-09] MEDS: LIDOCAINE 5% 1 PATCH TD SCH (22:35)
[2022-04-09] MEDS: FERROUS SULFATE 325 MG TAB PO SCH (22:36)
[2022-04-09] MEDS: GABAPENTIN 100 MG CAP PO SCH (22:36)
[2022-04-09] MEDS: METOPROLOL SUCC 25MG EXT REL TAB PO SCH (22:41)
--- NOTE | 2022-04-10 07:19 | Hospitalist Progress Note ---
Date of Service April 10, 2022 Assessment & Plan (1) Closed sacral fracture: Plan: Recent sacrococcygeal fracture L5-S1 anterolisthesis Ambulatory dysfunction --Pelvic MRI:Bilateral sacral alar edema is seen, new from prior exam. Findings may represent insufficiency fracture, acute to subacute. An infectious etiology is considered less likely in the absence of surrounding soft tissue stranding, however cannot be entirely excluded. --Lumbar MRI:Unchanged appearance of degenerative changes with up to severe left and mild right neural foraminal stenosis. Fall precautions PT OT Pain management consulted Also consulted orthopedics Dr. Payne for input May need brace Continue gabapentin Pain control Seen by PT, however patient was asleep, plan to see the patient later Patient may not be seen by orthopedics (may not be available) Pain much better controlled now Abnormal urinalysis Rule out UTI Empirically started on Rocephin Follow-up urine culture, urine culture so far showing gram-negative bacilli Chronic Atrial fibrillation H/O Tachybradycardia Syndrome S/P PPM Continue digoxin, metoprolol Continue warfarin Monitor INR 2.9 Chronic HFpEF Continue Lasix, metoprolol and potassium Monitor renal function, volume status No signs of decompensation COPD No acute exacerbation continue home inhalers Depression continue zoloft DVT Px: Coumadin Code Status : Full Code Disposition: PT/OT prior to discharge Admission and Anticipated Discharge Date Admission Date: April 09, 2022 Subjective Patient seen in follow-up of back pain, hip pain, ? UTI She is lying in bed, in no acute distress Reports that pain is now better controlled, however she has some abdominal discomfort, reports poor appetite No fevers, chills, chest pain, shortness of breath Review of Systems Review of Systems: All systems reviewed & are unremarkable except as noted in Subjective Physical Exam Physical Exam: General Appearance:Thin, frail, Chronic ill appearing, +Hearing impairment, No distress Head: normocephalic, Atraumatic Eyes: normal inspection, EOMI Neck: supple, Trachea midline Respiratory/Chest: Normal breath sounds, CTA, No accessory muscle use Cardiovascular:Irregularly Irregular, No murmur Abdomen/GI:Soft, Non tender, Bowel sounds present Extremities/Musculoskeletal:normal inspection,1+ B/L LE edema Neurologic/Psych:AAOX3, answering questions appropriately, speech fluent, decreased ROM due to hip pain Skin: normal color, warm Results & Data Results & Data ([facility]) Vital Signs (Past 12 Hours) Vital Signs Temp Pulse Resp BP Pulse Ox 04/09/22 22:00 36.5 C 63 17 109/66 100 04/09/22 21:00 36.6 C 82 18 123/82 99 04/09/22 20:33 90 18 100/81 100 Laboratory Results 04/09/22 04/09/22 04/09/22 Range/Units 18:16 13:25 13:25 WBC (4.8-10.8) K/uL RBC (4.2-5.4) M/uL Hgb (12.0-16.0) g/dL Hct (37-47) % MCV (80-100) fL MCH (25-34) pg MCHC (32-36) g/dL RDW Std Deviation (36.4-46.3) fL RDW Coeff of Saman (11.5-14.5) % Plt Count (130-400) K/uL MPV (7.4-10.4) fL Immature Gran % (Auto) % Neut % (Auto) % Lymph % (Auto) % [place] % (Auto) % Eos % (Auto) % Baso % (Auto) % Neut # (Auto) (1.4-6.5) K/uL Lymph # (Auto) (1.2-3.4) K/uL [place] # (Auto) (0.11-0.59) K/uL Eos # (Auto) (0-0.5) K/uL Baso # (Auto) (0-0.2) K/uL Immature Gran # (Auto) (0.00-0.02) K/uL PT 29.3 H (9.0-12.0) Seconds INR 2.9 H (0.9-1.1) Sodium (136-145) mmol/L Potassium (3.5-5.1) mmol/L Chloride (98-107) mmol/L Carbon Dioxide (21-32) mmol/L Anion Gap (3-11) BUN (6-23) mg/dl Creatinine (0.6-1.2) mg/dl Est Cr Clr Drug Dosing Est GFR ( Amer) ml/min Est GFR (Non-Af Amer) ml/min BUN/Creatinine Ratio (10-20) Glucose (70-99(Fasting)) mg/dl Calcium (8.5-10.1) mg/dl Total Bilirubin (0.2-1.0) mg/dl AST (13-39) U/L ALT (7-52) U/L Alkaline Phosphatase (34-104) U/L Total Protein (6.0-8.3) gm/dl Albumin (3.4-5.0) gm/dl Globulin (2.5-4.0) gm/dl Albumin/Globulin Ratio (0.9-2) Urine Color Dark Yellow Urine Appearance Cloudy A (Clear) Urine pH 5.0 (4.5-7.5) Ur Specific [place] 1.038 H (1.000-1.030) Urine Protein Trace H (Negative) Urine Glucose (UA) Negative (Negative) Urine Ketones 1+ H (Negative) Urine Blood Negative (Negative) Urine Nitrite Positive A (Negative) Urine Bilirubin Negative (Negative) Urine Urobilinogen Negative (Negative) Ur Leukocyte Esterase 1+ H (Negative) Urine WBC (Auto) 10-30 H (0-5) /hpf Urine RBC (Auto) 0-4 (0-4) /hpf U Hyaline Cast (Auto) 1-5 (0-5) /lpf U Epithel Cells (Auto) >30 H (0-5) /lpf Urine Bacteria (Auto) 1+ H (Negative) Urine Yeast Not Reportable SARS-CoV-2, RNA, NAAT NEGATIVE (NEGATIVE) 04/09/22 04/09/22 Range/Units 13:25 13:25 WBC 7.76 (4.8-10.8) K/uL RBC 3.81 L (4.2-5.4) M/uL Hgb 11.6 L (12.0-16.0) g/dL Hct 36.4 L (37-47) % MCV 95.5 (80-100) fL MCH 30.4 (25-34) pg MCHC 31.9 L (32-36) g/dL RDW Std Deviation 60.6 H (36.4-46.3) fL RDW Coeff of Saman 17.3 H (11.5-14.5) % Plt Count 319 (130-400) K/uL MPV 10.3 (7.4-10.4) fL Immature Gran % (Auto) 0.1 % Neut % (Auto) 71.2 % Lymph % (Auto) 19.7 % [place] % (Auto) 3.6 % Eos % (Auto) 5.0 % Baso % (Auto) 0.4 % Neut # (Auto) 5.52 (1.4-6.5) K/uL Lymph # (Auto) 1.53 (1.2-3.4) K/uL [place] # (Auto) 0.28 (0.11-0.59) K/uL Eos # (Auto) 0.39 (0-0.5) K/uL Baso # (Auto) 0.03 (0-0.2) K/uL Immature Gran # (Auto) 0.01 (0.00-0.02) K/uL PT (9.0-12.0) Seconds INR (0.9-1.1) Sodium 142 (136-145) mmol/L Potassium 3.7 (3.5-5.1) mmol/L Chloride 107 (98-107) mmol/L Carbon Dioxide 29 (21-32) mmol/L Anion Gap 6 (3-11) BUN 21 (6-23) mg/dl Creatinine 0.77 (0.6-1.2) mg/dl Est Cr Clr Drug Dosing Not Reportable Est GFR ( Amer) 91.3 ml/min Est GFR (Non-Af Amer) 78.8 ml/min BUN/Creatinine Ratio 27.3 H (10-20) Glucose 127 H (70-99(Fasting)) mg/dl Calcium 8.2 L (8.5-10.1) mg/dl Total Bilirubin 0.7 (0.2-1.0) mg/dl AST 23 (13-39) U/L ALT 25 (7-52) U/L Alkaline Phosphatase 268 H (34-104) U/L Total Protein 6.0 (6.0-8.3) gm/dl Albumin 3.3 L (3.4-5.0) gm/dl Globulin 2.7 (2.5-4.0) gm/dl Albumin/Globulin Ratio 1.2 (0.9-2) Urine Color Urine Appearance (Clear) Urine pH (4.5-7.5) Ur Specific [place] (1.000-1.030) Urine Protein (Negative) Urine Glucose (UA) (Negative) Urine Ketones (Negative) Urine Blood (Negative) Urine Nitrite (Negative) Urine Bilirubin (Negative) Urine Urobilinogen (Negative) Ur Leukocyte Esterase (Negative) Urine WBC (Auto) (0-5) /hpf Urine RBC (Auto) (0-4) /hpf U Hyaline Cast (Auto) (0-5) /lpf U Epithel Cells (Auto) (0-5) /lpf Urine Bacteria (Auto) (Negative) Urine Yeast SARS-CoV-2, RNA, NAAT (NEGATIVE) Medications Administered Current Inpatient Medications Acetaminophen (Acetaminophen 325 Mg Tab) 650 mg PO Q4H PRN PRN Reason: pain/fever Stop: 05/09/22 21:20 Last Admin: 04/09/22 22:26 Dose: 650 mg Documented by: Albuterol (Albuterol Hfa 8 Gm Inhaler) 2 puffs INH QID PRN PRN Reason: Shortness Of Breath Or Wheezing Stop: 05/09/22 21:20 Ascorbic Acid (Ascorbic Acid 500 Mg Tab) 250 mg PO BID ISHAN Stop: 05/09/22 21:20 Last Admin: 04/09/22 22:33 Dose: 250 mg Documented by: Digoxin (Digoxin 0.125 Mg Tab) 0.125 mg PO QAM ISHAN Stop: 05/10/22 08:59 Ferrous Sulfate (Ferrous Sulfate 325 Mg Tab) 325 mg PO BID ISHAN Stop: 05/09/22 21:20 Last Admin: 04/09/22 22:36 Dose: 325 mg Documented by: Fluticasone/Vilanterol (Fluticasone/Vilanterol 100/25mcg 14 Puffs/Inhaler) 1 puffs INH DAILY ISHAN Stop: 05/10/22 08:59 Furosemide (Furosemide 20 Mg Tab) 60 mg PO DAILY ISHAN Stop: 05/10/22 08:59 Gabapentin (Gabapentin 100 Mg Cap) 100 mg PO TID ISHAN Stop: 05/09/22 21:20 Last Admin: 04/09/22 22:36 Dose: 100 mg Documented by: Ceftriaxone Sodium 1,000 mg/ (Dextrose) 60 mls @ 100 mls/hr IV DAILY ISHAN; Protocol Stop: 04/15/22 08:59 Lidocaine (Lidocaine 5% 1 Patch) 1 patch TD QPM ISHAN Stop: 05/09/22 21:20 Last Admin: 04/09/22 22:35 Dose: 1 patch Documented by: Magnesium Oxide (Magnesium Oxide 400 Mg Tab) 400 mg PO DAILY [facility] Stop: 05/10/22 08:59 Metoprolol Succinate (Metoprolol Succ 25mg Ext Rel Tab) 12.5 mg PO AMHS [facility] Stop: 05/09/22 21:20 Last Admin: 04/09/22 22:41 Dose: Not Given Documented by: Miscellaneous (Remove Lidoderm Patch) 1 ea N/A DAILY@0900 [facility] Stop: 05/09/22 21:20 Last Admin: 04/09/22 22:24 Dose: Not Given Documented by: Miscellaneous (Accolate - Order Awaiting Action) 1 ea N/A QS [facility] Stop: 05/10/22 00:00 Last Admin: 04/09/22 23:03 Dose: Not Given Documented by: Morphine Sulfate (Morphine Sulfate 2 Mg/Ml [place]) 2 mg IV Q6H PRN PRN Reason: Pain Stop: 04/23/22 21:20 Multivitamins/Folic Acid/Vitamin C (Multivitamin Chewable Tab) 1 tab PO QAM [facility] Stop: 05/10/22 08:59 Ondansetron HCl (Ondansetron Inj 2 Mg/Ml 2 Ml Vial) 4 mg IV Q6H PRN PRN Reason: Nausea Stop: 05/09/22 21:20 Oxycodone HCl (Oxycodone Hcl Ir 5 Mg Tab (Immediate Release)) 5 mg PO Q6H PRN PRN Reason: Pain Stop: 04/23/22 21:20 Polyethylene Glycol (Polyethylene (Miralax) 17 Gm Pack) 17 gm PO DAILY PRN PRN Reason: Constipation Stop: 05/09/22 21:20 Potassium Chloride (Potassium Chloride 10 Meq Tabcr) 10 meq PO DAILY [facility] Stop: 05/10/22 08:59 Sertraline HCl (Sertraline Hcl 50 Mg Tablet) 50 mg PO QAM [facility] Stop: 05/10/22 08:59 Vitamin D (Cholecalciferol 1,000 Units 25 Mcg Tab) 2,000 units PO QAM [facility] Stop: 05/10/22 08:59 Warfarin Sodium (Warfarin Sod 1 Mg Tab) 1 mg PO DAILY@1600 [facility] Stop: 05/10/22 15:59 (1) Closed sacral fracture Encounter type: initial encounter Zone of sacrum fracture: unspecified portion of sacrum Qualified Code(s): S32.10XA - Unspecified fracture of sacrum, initial encounter for closed fracture
[2022-04-10 08:03] LABS: Hematocrit (blood only) 34.1 % (37-47); Hemoglobin 11.2 g/dL (12.0-16.0); Mean Corpuscular Hemoglobin 31.1 pg (25-34); Mean Corpuscular Hgb Conc 32.8 g/dL (32-36); Mean Corpuscular Volume 94.7 fL (80-100); Mean Platelet Volume 10.5 fL (7.4-10.4); Platelet Count 214 K/uL (130-400); RDW Coefficient of Variation 17.6 % (11.5-14.5); RDW Standard Deviation 60.5 fL (36.4-46.3); White Blood Count 5.71 K/uL (4.8-10.8)
[2022-04-10 08:22] LABS: Anion Gap 2 (3-11); BUN Creatinine Ratio 28.9 (10-20); Blood Urea Nitrogen 22 mg/dl (6-23); Calcium 7.4 mg/dl (8.5-10.1); Carbon Dioxide 29 mmol/L (21-32); Chloride 109 mmol/L (98-107); Creatinine Clr Calc Pharmacy 50.2 ml/min; Est GFR (African American) 92.8 ml/min; Glucose 59 mg/dl (70-99(Fasting)); Magnesium 2.3 mg/dl (1.7-2.4); Sodium 140 mmol/L (136-145)
[2022-04-10 08:38] LABS: INR 2.2 (0.9-1.1); Prothrombin Time 22.7 Seconds (9.0-12.0)
[2022-04-10] MEDS: ASCORBIC ACID 500 MG TAB PO SCH ×2 (09:09→20:30)
[2022-04-10] MEDS: CHOLECALCIFEROL 1,000 UNITS 25 MCG TAB PO SCH (09:10)
[2022-04-10] MEDS: FERROUS SULFATE 325 MG TAB PO SCH ×2 (09:10→20:30)
[2022-04-10] MEDS: FUROSEMIDE 20 MG TAB PO SCH (09:11)
[2022-04-10] MEDS: FLUTICASONE/VILANTEROL 100/25MCG 14 PUFFS/INHALER INH SCH (09:11)
[2022-04-10] MEDS: MAGNESIUM OXIDE 400 MG TAB PO SCH (09:12)
[2022-04-10] MEDS: GABAPENTIN 100 MG CAP PO SCH ×3 (09:12→20:29)
[2022-04-10] MEDS: METOPROLOL SUCC 25MG EXT REL TAB PO SCH ×2 (09:13→20:34)
[2022-04-10] MEDS: MULTIVITAMIN CHEWABLE TAB PO SCH (09:13)
[2022-04-10] MEDS: SERTRALINE HCL 50 MG TABLET PO SCH (09:14)
[2022-04-10] MEDS: POTASSIUM CHLORIDE 10 MEQ TABCR PO SCH (09:14)
[2022-04-10] MEDS: DIGOXIN 0.125 MG TAB PO SCH (09:16)
[2022-04-10] MEDS: cefTRIAXone SODIUM 1,000 MG in DEXTROSE 5% 50 ML IV SCH (09:25)
[2022-04-10] MEDS: WARFARIN SOD 1 MG TAB PO SCH (15:54)
[2022-04-10] MEDS: ADVANCED PROBIOTIC 1250 MG CAPSULE PO SCH (18:15)
[2022-04-10] MEDS: SUCRALFATE 1 GM/10 ML UDC PO SCH (19:18)
[2022-04-10] MEDS: PANTOprazole 40 MG TAB PO SCH (19:18)
[2022-04-10] MEDS: CEROVITE ADV FORMULA TAB PO SCH (19:18)
[2022-04-10] MEDS: LIDOCAINE 5% 1 PATCH TD SCH (20:29)
[2022-04-11 07:11] LABS: Hematocrit (blood only) 31.4 % (37-47); Hemoglobin 10.3 g/dL (12.0-16.0); Mean Corpuscular Hemoglobin 31.1 pg (25-34); Mean Corpuscular Hgb Conc 32.8 g/dL (32-36); Mean Corpuscular Volume 94.9 fL (80-100); Mean Platelet Volume 9.8 fL (7.4-10.4); Platelet Count 235 K/uL (130-400); RDW Coefficient of Variation 17.6 % (11.5-14.5); RDW Standard Deviation 60.8 fL (36.4-46.3); Red Blood Count 3.31 M/uL (4.2-5.4); White Blood Count 5.33 K/uL (4.8-10.8)
[2022-04-11 07:42] LABS: BUN Creatinine Ratio 28.4 (10-20); Calcium 7.4 mg/dl (8.5-10.1); Creatinine Clr Calc Pharmacy 51.5 ml/min; Est GFR (African American) 95.8 ml/min; Est GFR (Non-African American) 82.7 ml/min; Magnesium 2.1 mg/dl (1.7-2.4); Potassium 4.2 mmol/L (3.5-5.1)
[2022-04-11 07:46] LABS: INR 1.7 (0.9-1.1); Prothrombin Time 17.9 Seconds (9.0-12.0)
[2022-04-11] MEDS: SUCRALFATE 1 GM/10 ML UDC PO SCH ×3 (08:02→15:56)
[2022-04-11] MEDS: ASCORBIC ACID 500 MG TAB PO SCH ×2 (08:03→20:33)
[2022-04-11] MEDS: FERROUS SULFATE 325 MG TAB PO SCH ×2 (08:04→20:33)
[2022-04-11] MEDS: POTASSIUM CHLORIDE 10 MEQ TABCR PO SCH (08:04)
[2022-04-11] MEDS: CHOLECALCIFEROL 1,000 UNITS 25 MCG TAB PO SCH (08:04)
[2022-04-11] MEDS: GABAPENTIN 100 MG CAP PO SCH ×3 (08:04→20:33)
[2022-04-11] MEDS: MULTIVITAMIN CHEWABLE TAB PO SCH (08:04)
[2022-04-11] MEDS: DIGOXIN 0.125 MG TAB PO SCH (08:05)
[2022-04-11] MEDS: MAGNESIUM OXIDE 400 MG TAB PO SCH (08:05)
[2022-04-11] MEDS: FLUTICASONE/VILANTEROL 100/25MCG 14 PUFFS/INHALER INH SCH (08:05)
[2022-04-11] MEDS: ADVANCED PROBIOTIC 1250 MG CAPSULE PO SCH (08:06)
[2022-04-11] MEDS: PANTOprazole 40 MG TAB PO SCH (08:06)
[2022-04-11] MEDS: SERTRALINE HCL 50 MG TABLET PO SCH (08:06)
[2022-04-11] MEDS: CEROVITE ADV FORMULA TAB PO SCH (08:06)
[2022-04-11] MEDS: cefTRIAXone SODIUM 1,000 MG in DEXTROSE 5% 50 ML IV SCH (08:15)
--- NOTE | 2022-04-11 08:23 | Hospitalist Progress Note ---
Date of Service April 11, 2022 Assessment & Plan (1) Closed sacral fracture: Plan: Recent sacrococcygeal fracture L5-S1 anterolisthesis Ambulatory dysfunction --Pelvic MRI:Bilateral sacral alar edema is seen, new from prior exam. Findings may represent insufficiency fracture, acute to subacute. An infectious etiology is considered less likely in the absence of surrounding soft tissue stranding, however cannot be entirely excluded. --Lumbar MRI:Unchanged appearance of degenerative changes with up to severe left and mild right neural foraminal stenosis. Fall precautions PT OT Pain management consulted Also consulted orthopedics Dr. Payne for input May need brace Continue gabapentin Pain control Seen by PT, however patient was asleep, plan to see the patient later Patient may not be seen by orthopedics (may not be available) Pain much better controlled now Abnormal urinalysis Rule out UTI Empirically started on Rocephin Follow-up urine culture, urine culture so far showing gram-negative bacilli Chronic Atrial fibrillation H/O Tachybradycardia Syndrome S/P PPM Continue digoxin, metoprolol Continue warfarin monitor INR Chronic HFpEF Continue Lasix, metoprolol and potassium - BP on lower side, may need to hold Monitor renal function, volume status No signs of decompensation COPD No acute exacerbation continue home inhalers Depression continue zoloft DVT Px: Coumadin Code Status : Full Code Disposition: PT/OT prior to discharge Admission and Anticipated Discharge Date Admission Date: April 09, 2022 Subjective Patient seen in follow-up of back pain, hip pain, ? UTI She is lying in bed, in no acute distress Reports that pain is now better controlled, however she has some abdominal discomfort, reports poor appetite - improved after starting PPI waffle cushion ordered for sitting No fevers, chills, chest pain, shortness of breath Review of Systems Review of Systems: All systems reviewed & are unremarkable except as noted in Subjective Physical Exam Physical Exam: General Appearance:Thin, frail, Chronic ill appearing, +Hearing impairment, No distress Head: normocephalic, Atraumatic Eyes: normal inspection, EOMI Neck: supple Respiratory/Chest: Normal breath sounds, CTA, No accessory muscle use Cardiovascular:Irregularly Irregular, No murmur Abdomen/GI:Soft, Non tender, Bowel sounds present Extremities/Musculoskeletal:normal inspection, no LE edema Neurologic/Psych:AAOX3, answering questions appropriately, speech fluent, decreased ROM due to hip pain Skin: normal color, warm Results & Data Results & Data ([facility]) Vital Signs (Past 12 Hours) Vital Signs Temp Pulse Pulse Pulse Resp BP Pulse Ox 04/11/22 08:05 71 04/11/22 08:01 71 95/59 L 04/11/22 06:44 36.6 C 71 14 97/67 L 99 04/10/22 21:02 36.7 C 77 16 106/73 99 Laboratory Results 04/11/22 04/11/22 04/11/22 Range/Units 06:44 06:44 06:44 WBC 5.33 (4.8-10.8) K/uL RBC 3.31 L (4.2-5.4) M/uL Hgb 10.3 L (12.0-16.0) g/dL Hct 31.4 L (37-47) % MCV 94.9 (80-100) fL MCH 31.1 (25-34) pg MCHC 32.8 (32-36) g/dL RDW Std Deviation 60.8 H (36.4-46.3) fL RDW Coeff of Saman 17.6 H (11.5-14.5) % Plt Count 235 (130-400) K/uL MPV 9.8 (7.4-10.4) fL PT 17.9 H (9.0-12.0) Seconds INR 1.7 H (0.9-1.1) Sodium 140 (136-145) mmol/L Potassium 4.2 Chloride 106 (98-107) mmol/L Carbon Dioxide 31 (21-32) mmol/L Anion Gap 3 (3-11) BUN 21 (6-23) mg/dl Creatinine 0.74 (0.6-1.2) mg/dl Est Cr Clr Drug Dosing 51.5 ml/min Est GFR ( Amer) 95.8 ml/min Est GFR (Non-Af Amer) 82.7 ml/min BUN/Creatinine Ratio 28.4 H (10-20) Glucose 71 (70-99(Fasting)) mg/dl Calcium 7.4 L (8.5-10.1) mg/dl Phosphorus 2.0 L (2.5-4.9) mg/dl Magnesium 2.1 (1.7-2.4) mg/dl Hepatitis C Ab (EIA) Hep C Ab Signal/Cutoff 04/10/22 04/10/22 04/10/22 Range/Units 08:39 08:31 07:43 WBC (4.8-10.8) K/uL RBC (4.2-5.4) M/uL Hgb (12.0-16.0) g/dL Hct (37-47) % MCV (80-100) fL MCH (25-34) pg MCHC (32-36) g/dL RDW Std Deviation (36.4-46.3) fL RDW Coeff of Saman (11.5-14.5) % Plt Count (130-400) K/uL MPV (7.4-10.4) fL PT (9.0-12.0) Seconds INR (0.9-1.1) Sodium 140 (136-145) mmol/L Potassium 4.1 TNP Chloride 109 H (98-107) mmol/L Carbon Dioxide 29 (21-32) mmol/L Anion Gap 2 L (3-11) BUN 22 (6-23) mg/dl Creatinine 0.76 (0.6-1.2) mg/dl Est Cr Clr Drug Dosing 50.2 ml/min Est GFR ( Amer) 92.8 ml/min Est GFR (Non-Af Amer) 80.0 ml/min BUN/Creatinine Ratio 28.9 H (10-20) Glucose 59 L (70-99(Fasting)) mg/dl Calcium 7.4 L (8.5-10.1) mg/dl Phosphorus (2.5-4.9) mg/dl Magnesium 2.3 (1.7-2.4) mg/dl Hepatitis C Ab (EIA) Pending Hep C Ab Signal/Cutoff Pending 04/10/22 Range/Units 07:43 WBC (4.8-10.8) K/uL RBC (4.2-5.4) M/uL Hgb (12.0-16.0) g/dL Hct (37-47) % MCV (80-100) fL MCH (25-34) pg MCHC (32-36) g/dL RDW Std Deviation (36.4-46.3) fL RDW Coeff of Saman (11.5-14.5) % Plt Count (130-400) K/uL MPV (7.4-10.4) fL PT 22.7 H (9.0-12.0) Seconds INR 2.2 H (0.9-1.1) Sodium (136-145) mmol/L Potassium Chloride (98-107) mmol/L Carbon Dioxide (21-32) mmol/L Anion Gap (3-11) BUN (6-23) mg/dl Creatinine (0.6-1.2) mg/dl Est Cr Clr Drug Dosing ml/min Est GFR ( Amer) ml/min Est GFR (Non-Af Amer) ml/min BUN/Creatinine Ratio (10-20) Glucose (70-99(Fasting)) mg/dl Calcium (8.5-10.1) mg/dl Phosphorus (2.5-4.9) mg/dl Magnesium (1.7-2.4) mg/dl Hepatitis C Ab (EIA) Hep C Ab Signal/Cutoff Medications Administered Current Inpatient Medications Acetaminophen (Acetaminophen 325 Mg Tab) 650 mg PO Q4H PRN PRN Reason: pain/fever Stop: 05/09/22 21:20 Last Admin: 04/09/22 22:26 Dose: 650 mg Documented by: Albuterol (Albuterol Hfa 8 Gm Inhaler) 2 puffs INH QID PRN PRN Reason: Shortness Of Breath Or Wheezing Stop: 05/09/22 21:20 Ascorbic Acid (Ascorbic Acid 500 Mg Tab) 250 mg PO BID [facility] Stop: 05/09/22 21:20 Last Admin: 04/11/22 08:03 Dose: 250 mg Documented by: Digoxin (Digoxin 0.125 Mg Tab) 0.125 mg PO QAM ISHAN Stop: 05/10/22 08:59 Last Admin: 04/11/22 08:05 Dose: 0.125 mg Documented by: Ferrous Sulfate (Ferrous Sulfate 325 Mg Tab) 325 mg PO BID [facility] Stop: 05/09/22 21:20 Last Admin: 04/11/22 08:04 Dose: 325 mg Documented by: Fluticasone/Vilanterol (Fluticasone/Vilanterol 100/25mcg 14 Puffs/Inhaler) 1 puffs INH DAILY [facility] Stop: 05/10/22 08:59 Last Admin: 04/11/22 08:05 Dose: 1 puffs Documented by: Furosemide (Furosemide 20 Mg Tab) 60 mg PO DAILY [facility] Stop: 05/10/22 08:59 Last Admin: 04/10/22 09:11 Dose: 60 mg Documented by: Gabapentin (Gabapentin 100 Mg Cap) 100 mg PO TID [facility] Stop: 05/09/22 21:20 Last Admin: 04/11/22 08:04 Dose: 100 mg Documented by: Ceftriaxone Sodium 1,000 mg/ (Dextrose) 60 mls @ 100 mls/hr IV DAILY [facility]; Protocol Stop: 04/15/22 08:59 Last Admin: 04/11/22 08:15 Dose: 100 mls/hr Documented by: Lactobacillus Acidophilus (Advanced Probiotic 1250 Mg Capsule) 2 cap PO DAILY [facility] Stop: 05/10/22 16:14 Last Admin: 04/11/22 08:06 Dose: 2 cap Documented by: Lidocaine (Lidocaine 5% 1 Patch) 1 patch TD QPM [facility] Stop: 05/09/22 21:20 Last Admin: 04/10/22 20:29 Dose: 1 patch Documented by: Magnesium Oxide (Magnesium Oxide 400 Mg Tab) 400 mg PO DAILY [facility] Stop: 05/10/22 08:59 Last Admin: 04/11/22 08:05 Dose: 400 mg Documented by: Metoprolol Succinate (Metoprolol Succ 25mg Ext Rel Tab) 12.5 mg PO AMHS [facility] Stop: 05/09/22 21:20 Last Admin: 04/10/22 20:34 Dose: Not Given Documented by: Miscellaneous (Remove Lidoderm Patch) 1 ea N/A DAILY@0900 [facility] Stop: 05/09/22 21:20 Last Admin: 04/10/22 10:58 Dose: 1 ea Documented by: Miscellaneous (Accolate - Order Awaiting Action) 1 ea N/A QS [facility] Stop: 05/10/22 00:00 Last Admin: 04/11/22 08:03 Dose: Not Given Documented by: Morphine Sulfate (Morphine Sulfate 2 Mg/Ml Carp) 2 mg IV Q6H PRN PRN Reason: Pain Stop: 04/23/22 21:20 Multivitamins/Folic Acid/Vitamin C (Multivitamin Chewable Tab) 1 tab PO QAM [facility] Stop: 05/10/22 08:59 Last Admin: 04/11/22 08:04 Dose: 1 tab Documented by: Multivitamins/Minerals (Cerovite Adv Formula Tab) 1 tab PO QAM [facility] Stop: 05/10/22 16:44 Last Admin: 04/11/22 08:06 Dose: 1 tab Documented by: Ondansetron HCl (Ondansetron Inj 2 Mg/Ml 2 Ml Vial) 4 mg IV Q6H PRN PRN Reason: Nausea Stop: 05/09/22 21:20 Last Admin: 04/10/22 09:48 Dose: 4 mg Documented by: Oxycodone HCl (Oxycodone Hcl Ir 5 Mg Tab (Immediate Release)) 5 mg PO Q6H PRN PRN Reason: Pain Stop: 04/23/22 21:20 Pantoprazole Sodium (Pantoprazole 40 Mg Tab) 40 mg PO QAM [facility] Stop: 05/10/22 16:44 Last Admin: 04/11/22 08:06 Dose: 40 mg Documented by: Polyethylene Glycol (Polyethylene (Miralax) 17 Gm Pack) 17 gm PO DAILY PRN PRN Reason: Constipation Stop: 05/09/22 21:20 Potassium Chloride (Potassium Chloride 10 Meq Tabcr) 10 meq PO DAILY [facility] Stop: 05/10/22 08:59 Last Admin: 04/11/22 08:04 Dose: 10 meq Documented by: Potassium Phosphate (Pot Phosphate Monobasic W/ Sod Tab) 1 tab PO QID [facility] Stop: 05/11/22 08:59 Sertraline HCl (Sertraline Hcl 50 Mg Tablet) 50 mg PO QAM [facility] Stop: 05/10/22 08:59 Last Admin: 04/11/22 08:06 Dose: 50 mg Documented by: Sucralfate (Sucralfate 1 Gm/10 Ml Udc) 1 gm PO AC [facility] Stop: 05/10/22 16:44 Last Admin: 04/11/22 08:02 Dose: 1 gm Documented by: Vitamin D (Cholecalciferol 1,000 Units 25 Mcg Tab) 2,000 units PO QAM [facility] Stop: 05/10/22 08:59 Last Admin: 04/11/22 08:04 Dose: 2,000 units Documented by: Warfarin Sodium (Warfarin Sod 1 Mg Tab) 1 mg PO DAILY@1600 [facility] Stop: 05/10/22 15:59 Last Admin: 04/10/22 15:54 Dose: 1 mg Documented by: (1) Closed sacral fracture Encounter type: initial encounter Zone of sacrum fracture: unspecified portion of sacrum Qualified Code(s): S32.10XA - Unspecified fracture of sacrum, initial encounter for closed fracture
[2022-04-11] MEDS: FUROSEMIDE 20 MG TAB PO SCH (09:31)
[2022-04-11] MEDS: METOPROLOL SUCC 25MG EXT REL TAB PO SCH ×2 (09:31→20:33)
[2022-04-11] MEDS: POT PHOSPHATE MONOBASIC W/ SOD TAB PO SCH ×4 (11:25→20:32)
[2022-04-11] MEDS: ACETAMINOPHEN 325 MG TAB PO PRN (13:31)
[2022-04-11] MEDS ORDERED: SODIUM CHLORIDE 0.9% 1000ML 500 ML IV ONE (14:39)
[2022-04-11] MEDS: WARFARIN SOD 1 MG TAB PO SCH (15:57)
[2022-04-11] MEDS: LIDOCAINE 5% 1 PATCH TD SCH (20:32)
--- NOTE | 2022-04-12 09:19 | Pain Management Consultation ---
Date of Consultation April 12, 2022 Assessment & Plan (1) Intractable low back pain: (2) Sacroiliac joint pain: (3) Closed sacral fracture: Encounter type: initial encounter Zone of sacrum fracture: unspecified portion of sacrum Qualified Code(s): S32.10XA - Unspecified fracture of sacrum, initial encounter for closed fracture (4) UTI (urinary tract infection): Hematuria presence: without hematuria Urinary tract infection typ e: site unspecified Qualified Code(s): N39.0 - Urinary tract infection, site not specified 1. Appears that her current pain complaint is associated with the bilateral sacral collette fracture/insufficiency fracture and likely SI joint dysfunction. Patient is a poor candidate for interventional treatment due to active UTI. Her potential candidacy for SI joint injection was discussed which can be completed in the outpatient setting with any persistent pain complaints. The earliest interventional treatment would be considered is 2 weeks status post completion of antibiotic therapy. 2. Consider Medrol Dosepak in an attempt to diminish inflammatory response if no contraindication per hospitalist team 3. Recommend PT/OT evaluation and treatment 4. Recommend application of Lidoderm patch to her left SI joint region as opposed to the right side 5. Consider progressing her gabapentin dose pending tolerability to 300 mg 3 ti mes daily Thank you for allowing us to participate in the care of Mrs. Sewell. History of Present Illness Reason for Consultation: Intractable low back pain Requesting Physician: Hima Mclain MD Attending Physician: Ganesh Ellison MD History of Present Illness Mrs. Sewell is a 71-year-old white female who was admitted due to intractable low back pain extending into the hips left greater than right-sided. Patient was recently hospitalized with similar complaints with discovery of sacrococcygeal fracture. She was treated conservatively discharged to rehab facility and was reportedly progressing well through rehab and then discharged home. She then continued with home PT but reported onset of significant pain in the low back extending into the left hip greater than right hip and lower extremity nondermatomal patterns to the ankle predominately on the left side without known injury. Patient reports that her pain is minimal in the sitting/supine position. Her pain escalates with any movement. She rates her pain a 1/10 at its best and 9/10 at its worst. She was evaluated by her PCP prior to admission and was initiated on gabapentin which she did not start. Gabapentin has been initiated upon this admission which she reports she is tolerating without notable side effect. She has not noticed benefit at this time. She did also utilize tramadol and oxycodone in the outpatient setting without relief of symptoms. She denies any new falls or injuries. She denies bowel or bladder incontinence or saddle anesthesias. She occasionally experiences pain radiating into the left groin. The patient denies weakness but reports sensation of weakness due to the discomfort with movement of the left lower extremity. Patient has no further constitutional complaints. Plan of care discussed with Dr. Schulte. Pain Assessment Full Body Front + Back: 1. Left lumbosacral/hip region 2. Left lower extremity pain below knee to ankle Pain scale - at its best (0-10): 1 Pain scale - at its worst (0-10): 9 Allergies Allergy/AdvReac Type Severity Reaction Status Date / Time oxycodone AdvReac Intermediate GI SYMPTOMS Verified 02/22/22 16:58 Home Medications Medication Instructions Recorded Confirmed Type metolazone 2.5 mg tablet 2.5 mg PO UD PRN 01/25/22 04/09/22 History acetaminophen 500 mg tablet 1,000 mg PO Q8H PRN #50 tab 01/30/22 04/09/22 Rx (Tylenol Extra Strength) albuterol sulfate 90 mcg/actuation 2 puff INHALATION QID PRN #8.5 g 01/30/22 04/09/22 Rx aerosol inhaler (Ventolin HFA) cholecalciferol (vitamin D3) 50 2,000 unit PO QAM 30 Days #30 cap 01/30/22 04/09/22 Rx mcg (2,000 unit) capsule (Vitamin D3) digoxin 125 mcg (0.125 mg) tablet 125 mcg PO QAM 30 Days #30 tab 01/30/22 04/09/22 Rx (Digitek) fluticasone 250 mcg-salmeterol 50 1 inh INHALATION BID 30 Days #60 ea 01/30/22 04/09/22 Rx mcg/dose blistr powdr for inhalation (Advair Diskus) iron,carbonyl 65 mg-vitamin C 125 1 tab PO BID 30 Days #60 tab 01/30/22 04/09/22 Rx mg tablet,delayed release (Vitron-C) lidocaine 5 % topical patch 1 patch TRANSDERMAL QPM #20 ea 01/30/22 04/09/22 Rx magnesium 200 mg tablet 200 mg PO DAILY 30 Days #30 tab 01/30/22 04/09/22 Rx ondansetron HCl 4 mg tablet 4 mg PO Q12H PRN #15 tab 01/30/22 04/09/22 Rx pediatric multivitamin no.7-folic 1 tab PO QAM 30 Days #30 tab 01/30/22 04/09/22 Rx acid 100 mcg chewable tablet (Flintstones Tab Chew) sertraline 50 mg tablet (Zoloft) 50 mg PO QAM 30 Days #30 tab 01/30/22 04/09/22 Rx warfarin 2.5 mg tablet See Rx Instructions .ROUTE 01/30/22 04/09/22 Rx .COMPLEX #30 tab zafirlukast 20 mg tablet (Accolate) 20 mg PO BID 30 Days #60 tab 01/30/22 04/09/22 Rx furosemide 40 mg tablet 60 mg PO DAILY 02/22/22 04/09/22 History metoprolol succinate 25 mg 12.5 mg PO AMHS 02/22/22 04/09/22 History tablet,extended release 24 hr potassium chloride 20 mEq 10 meq PO DAILY 02/22/22 04/09/22 History tablet,extended release(part/cryst) gabapentin 100 mg PO TID 04/09/22 04/09/22 History oxycodone 5 mg tablet 5 mg PO Q6H PRN 04/09/22 04/09/22 History Pain History Pain Intensity Pain scale - at its best (0-10): 1 Pain scale - at its worst (0-10): 9 Patient History Medical History (Updated 04/12/22 @ 09:13 by Richard Lo PA-C) A-fib S/P DANAE guided DCCV 10/2018. Reverted back to afib 03/2020. External DCCV 04/23/20. 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 Ivey S/P appendectomy S/P small bowel resection Family History Other Cancer Hypertension Lung disease No family history of adverse response to anesthesia Social History Smoking Status: Never smoker Second Hand Exposure: No; Hx Alcohol Use: Yes Alcohol type: beer Alcohol Intake Frequency: Monthly or Less Hx Substance Use: No Preferred Language: Cuban Communication Ability: Effective Voltage Inspector Required: No Beliefs That Will Affect Care: None marital status: Current Living Situation: Spouse Current Living Situation Comment: lives in first floor apartment with has one step to enter current occupational status: employed Other Information That Helps Us Care for You: Yes ( disabled; limited ability help to cook and care for) Feels Safe at Home: Yes Safety Concerns: Feels Safe At This Time Assistive Devices: Walker Physical Exam Physical Exam: General: Patient sleeping upon entering the room. Patient was arousable. Patient somewhat hard of hearing but communication was effective. Speech and thought process appropriate. Mood and affect appropriate. Cognition intact. Head: Normocephalic and atraumatic. ENT: No evidence of nasal or oral mucosal lesions. Mucous membranes are moist. Poor dentition is noted. Eyes: Pupils equal round reactive to light. Neck: Supple without adenopathy and full range of motion. Abdomen: Soft and nondistended. No organomegaly. Bowel sounds active. Back/spine: Complete loss of lumbar lordosis. Sacral pad in place. Lidoderm patch present over the right superior gluteal region. Patient exquisitely tender to provocative testing of the left SI joint and minimally tender corresponding on the right. Patient is moderately tender throughout the left gluteal region. No appreciable spasm or minor trigger points. Range of motion limited all planes. Lower extremities: SLR increased low back and left gluteal region pain. SLR is negative on the right. Hips are nontender with internal/external rotation. Mo derately tender over the left greater trochanter. Strength testing 4/5 on the left with dorsiflexion, plantarflexion and hip flexion/extension and 5/5 on the right. There was some guarding appreciated on the left due to increased pain complaint. Sensation was intact to sharp and dull distally. No appreciable edema. Modified TRUPTI maneuver was positive on the left and equivocal on the right. Neurologic: Cranial nerves grossly intact. Ambulatory function not witnessed. Results ([facility]) Diagnostic Review MRI Findings: [facility], [place] [phone] Magnetic Resonance Report Patient:ETHEL SEWELL Admit Date:04/09/22 MR#:[id number] Address1:[address] [place] [address] Acct ID:[id number] Address2: Date:1950 [facility] Zip[facility] [address] Age:71 Location:ED Sex:F Room/Bed: Att Phy: Diagnosis:HIP PAIN, TAILBONE, LEG PAIN Cynthia Phy:Russell Olvera DO Service Date:04/09/22 [facility] Phy: Interpreting Phy:Jose Elias Márquez MDAdmit Phy: Ordering Phy:Grisel Amaral PA-C cc: ~ MR pelvis wo con CLINICAL HISTORY: avascular necrosis, b/l hip pain TECHNIQUE: Multiplanar multisequence images were obtained of the abdomen with and without the administration of contrast. COMPARISON: Comparison is made to CT pelvis 01/25/2022 and MRI lumbar spine 01/26/2022 FINDINGS: Bowel: Unremarkable. Lymph nodes: Unremarkable. Bladder: Unremarkable. Reproductive organs: Unremarkable. Vessels: Unremarkable. Abdominal wall: Unremarkable. Bones: Edema is seen in the bilateral sacral ala. No definite evidence of a cortical irregularity is seen to suggest acute fracture. IMPRESSION: Bilateral sacral alar edema is seen, new from prior exam. Findings may represent insufficiency fracture, acute to subacute. An infectious etiology is considered less likely in the absence of surrounding soft tissue stranding, however cannot be entirely excluded. ACT 112: Negative or not required by law. Electronically signed by: Jose Elias Márquez M.D. 04/09/2022 6:19 PM Dictated:04/09/221803 Transcribed: 04/09/221803 [facility], [place] [phone] Magnetic Resonance Report Patient:ETHEL SEWELL Admit Date:04/09/22 MR#:[id number] Address1:[address] Acct ID:[id number] Address2: Date:1950 [facility] Zip:[place] [address] Age:71 Location:ED Sex:F Room/Bed: Att Phy: Diagnosis:HIP PAIN, TAILBONE, LEG PAIN Cynthia Phy:Russell Olvera DO Service Date:04/09/22 [facility] Phy: Interpreting Phy:Jose Elias Márquez MDAdmit Phy: Ordering Phy:Grisel Amaral PA-C cc: ~ MR lumbar spine wo con CLINICAL HISTORY: low back pain with radiculopathy TECHNIQUE: Multiplanar sequences through the lumbar spine were obtained, without intravenous contrast. Comparison: Comparison is made to lumbar spine MRI 01/26/2022 FINDINGS: Grade 1 anterolisthesis of L5-S1 again noted. Bilateral pars defects are noted. Degenerative changes are noted in the discs and vertebral bodies. L1-L2: No significant abnormality. L2-L3: Small posterior disc bulge is seen with no significant canal or neuroforaminal stenosis. L3-L4: Small posterior disc bulge without significant canal or neural foraminal stenosis. L4-L5: Small posterior disc bulge without significant canal or neural foraminal stenosis. L5-S1: Anterolisthesis and small posterior disc bulge is seen with severe left and mild right neural foraminal stenosis. The spinal ligaments are intact, without evidence of disruption or abnormal signal intensity. The spinal cord is normal in signal intensity and there is no evidence of cord contusion. There is no evidence of an extradural, intradural, extramedullary or intramedullary lesion. Visualized soft tissues are normal. IMPRESSION: Unchanged appearance of degenerative changes with up to severe left and mild right neural foraminal stenosis. ACT 112: Negative or not required by law. Electronically signed by: Jose Elias Márquez M.D. 04/09/2022 5:46 PM Dictated:04/09/221740 Transcribed: 04/09/221740
[2022-04-12] MEDS: ASCORBIC ACID 500 MG TAB PO SCH ×2 (10:02→19:48)
[2022-04-12] MEDS: ADVANCED PROBIOTIC 1250 MG CAPSULE PO SCH (10:02)
[2022-04-12] MEDS: SUCRALFATE 1 GM/10 ML UDC PO SCH ×3 (10:02→16:51)
[2022-04-12] MEDS: CHOLECALCIFEROL 1,000 UNITS 25 MCG TAB PO SCH (10:03)
[2022-04-12] MEDS: SERTRALINE HCL 50 MG TABLET PO SCH (10:03)
[2022-04-12] MEDS: POT PHOSPHATE MONOBASIC W/ SOD TAB PO SCH ×4 (10:03→19:50)
[2022-04-12] MEDS: GABAPENTIN 100 MG CAP PO SCH ×3 (10:03→19:49)
[2022-04-12] MEDS: MAGNESIUM OXIDE 400 MG TAB PO SCH (10:03)
[2022-04-12] MEDS: FUROSEMIDE 20 MG TAB PO SCH (10:03)
[2022-04-12] MEDS: POTASSIUM CHLORIDE 10 MEQ TABCR PO SCH (10:03)
[2022-04-12] MEDS: FLUTICASONE/VILANTEROL 100/25MCG 14 PUFFS/INHALER INH SCH (10:04)
[2022-04-12] MEDS: PANTOprazole 40 MG TAB PO SCH (10:04)
[2022-04-12] MEDS: DIGOXIN 0.125 MG TAB PO SCH (10:04)
[2022-04-12] MEDS: FERROUS SULFATE 325 MG TAB PO SCH ×2 (10:04→19:49)
[2022-04-12] MEDS: MULTIVITAMIN CHEWABLE TAB PO SCH (10:05)
[2022-04-12] MEDS: METOPROLOL SUCC 25MG EXT REL TAB PO SCH ×2 (10:05→19:49)
[2022-04-12] MEDS: ACETAMINOPHEN 325 MG TAB PO PRN (10:07)
[2022-04-12] MEDS: CEROVITE ADV FORMULA TAB PO SCH (10:08)
[2022-04-12] MEDS: cefTRIAXone SODIUM 1,000 MG in DEXTROSE 5% 50 ML IV SCH (10:10)
[2022-04-12] MEDS: WARFARIN SOD 1 MG TAB PO SCH (16:51)
[2022-04-12] MEDS: LIDOCAINE 5% 1 PATCH TD SCH (19:49)
[2022-04-13] MEDS: ACETAMINOPHEN 325 MG TAB PO PRN ×2 (02:06→09:10)
[2022-04-13] MEDS: SUCRALFATE 1 GM/10 ML UDC PO SCH ×2 (08:13→10:35)
[2022-04-13] MEDS: GABAPENTIN 100 MG CAP PO SCH ×3 (08:59→20:09)
[2022-04-13] MEDS: POT PHOSPHATE MONOBASIC W/ SOD TAB PO SCH ×4 (08:59→20:08)
[2022-04-13] MEDS: MAGNESIUM OXIDE 400 MG TAB PO SCH (08:59)
[2022-04-13] MEDS: CEROVITE ADV FORMULA TAB PO SCH (09:00)
[2022-04-13] MEDS: ADVANCED PROBIOTIC 1250 MG CAPSULE PO SCH (09:00)
[2022-04-13] MEDS: ASCORBIC ACID 500 MG TAB PO SCH ×2 (09:00→20:09)
[2022-04-13] MEDS: FERROUS SULFATE 325 MG TAB PO SCH ×2 (09:00→20:09)
[2022-04-13] MEDS: CHOLECALCIFEROL 1,000 UNITS 25 MCG TAB PO SCH (09:00)
[2022-04-13] MEDS: SERTRALINE HCL 50 MG TABLET PO SCH (09:01)
[2022-04-13] MEDS: FUROSEMIDE 20 MG TAB PO SCH (09:01)
[2022-04-13] MEDS: MULTIVITAMIN CHEWABLE TAB PO SCH (09:01)
[2022-04-13] MEDS: DIGOXIN 0.125 MG TAB PO SCH (09:01)
[2022-04-13] MEDS: METOPROLOL SUCC 25MG EXT REL TAB PO SCH ×2 (09:01→20:10)
[2022-04-13] MEDS: PANTOprazole 40 MG TAB PO SCH (09:01)
[2022-04-13] MEDS: POTASSIUM CHLORIDE 10 MEQ TABCR PO SCH (09:01)
[2022-04-13] MEDS: FLUTICASONE/VILANTEROL 100/25MCG 14 PUFFS/INHALER INH SCH (09:02)
[2022-04-13] MEDS: cefTRIAXone SODIUM 1,000 MG in DEXTROSE 5% 50 ML IV SCH (09:05)
[2022-04-13 10:32] LABS: INR 1.3 (0.9-1.1); Prothrombin Time 13.9 Seconds (9.0-12.0)
--- NOTE | 2022-04-13 10:52 | Hospitalist Progress Note ---
Date of Service April 12, 2022 Assessment & Plan (1) Closed sacral fracture: Plan: Recent sacrococcygeal fracture L5-S1 anterolisthesis Ambulatory dysfunction --Pelvic MRI:Bilateral sacral alar edema is seen, new from prior exam. Findings may represent insufficiency fracture, acute to subacute. An infectious etiology is considered less likely in the absence of surrounding soft tissue stranding, however cannot be entirely excluded. --Lumbar MRI:Unchanged appearance of degenerative changes with up to severe left and mild right neural foraminal stenosis. Fall precautions PT OT Pain management consulted Also consulted orthopedics Dr. Payne for input May need brace Continue gabapentin Pain control Patient may not be seen by orthopedics (may not be available) Pain much better controlled now Patient seen by management today, appreciate their input Abnormal urinalysis Patient seems to be asymptomatic Urine culture positive for Proteus mirabilis (>70, 000 CFU) Empirically started on Rocephin, will cont. Chronic Atrial fibrillation H/O Tachybradycardia Syndrome S/P PPM Continue digoxin, metoprolol Continue warfarin (at home 2.5 Sun, Tues, Tiffany, 1.25 mg all other days) On admission warfarin started at dose 1mg monitor INR Chronic HFpEF Continue Lasix, metoprolol and potassium - BP on lower side, may need to hold Monitor renal function, volume status No signs of decompensation COPD No acute exacerbation continue home inhalers Depression continue zoloft DVT Px: Coumadin Code Status : Full Code Disposition: PT/OT prior to discharge Admission and Anticipated Discharge Date Admission Date: April 11, 2022 Subjective Patient seen in follow-up of back pain, hip pain, ? UTI She is lying in bed, in no acute distress Reports that pain is now better controlled, however could not tolerate sitting on the waffle cushion Abdominal discomfort improved after starting PPI No fevers, chills, chest pain, shortness of breath Seen by pain management Review of Systems Review of Systems: All systems reviewed & are unremarkable except as noted in Subjective Physical Exam Physical Exam: General Appearance:Thin, frail, Chronic ill appearing, +Hearing impairment, No distress Head: normocephalic, Atraumatic Eyes: normal inspection, EOMI Neck: supple Respiratory/Chest: Normal breath sounds, CTA, No accessory muscle use Cardiovascular:Irregularly Irregular, No murmur Abdomen/GI:Soft, Non tender, Bowel sounds present Extremities/Musculoskeletal:normal inspection, no LE edema Neurologic/Psych:AAOX3, answering questions appropriately, speech fluent, decreased ROM due to hip pain Skin: normal color, warm (1) Closed sacral fracture Encounter type: initial encounter Zone of sacrum fracture: unspecified portion of sacrum Qualified Code(s): S32.10XA - Unspecified fracture of sacrum, initial encounter for closed fracture
--- NOTE | 2022-04-13 10:53 | Hospitalist Progress Note ---
Date of Service April 13, 2022 Assessment & Plan (1) Closed sacral fracture: Plan: Recent sacrococcygeal fracture L5-S1 anterolisthesis Ambulatory dysfunction --Pelvic MRI:Bilateral sacral alar edema is seen, new from prior exam. Findings may represent insufficiency fracture, acute to subacute. An infectious etiology is considered less likely in the absence of surrounding soft tissue stranding, however cannot be entirely excluded. --Lumbar MRI:Unchanged appearance of degenerative changes with up to severe left and mild right neural foraminal stenosis. Fall precautions PT OT Pain management consulted Also consulted orthopedics Dr. Payne for input May need brace Continue gabapentin Pain control Patient may not be seen by orthopedics (may not be available) Pain much better controlled now Patient seen by management , appreciate their input -we will increase gabapentin, start Medrol Patient continues to have difficulty with ambulation, however seems improved Abnormal urinalysis Patient seems to be asymptomatic Urine culture positive for Proteus mirabilis (>70, 000 CFU) Empirically started on Rocephin, will cont. 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 Will obtain FOBT. May be secondary to poor nutrition as well. Chronic Atrial fibrillation H/O Tachybradycardia Syndrome S/P PPM Continue digoxin, metoprolol Continue warfarin (at home 2.5 Sun, Tues, Tiffany, 1.25 mg all other days) On admission warfarin started at dose 1mg monitor INR Chronic HFpEF Continue Lasix, metoprolol and potassium - BP low, continue to hold Monitor renal function, volume status No signs of decompensation COPD No acute exacerbation continue home inhalers Depression continue zoloft DVT Px: Coumadin Code Status : Full Code Disposition: PT/OT prior to discharge Admission and Anticipated Discharge Date Admission Date: April 11, 2022 Subjective Patient seen in follow-up of back pain, hip pain, ? UTI She is lying in bed, in no acute distress Reports that pain is now better controlled, however could not tolerate sitting on the waffle cushion Abdominal discomfort improved after starting PPI No fevers, chills, chest pain, shortness of breath Seen by pain management was having some more frequent stools , BP low - pt asymptomatic, but holding her lasix and metoprolol. also chronic anemia Review of Systems Review of Systems: All systems reviewed & are unremarkable except as noted in Subjective Physical Exam Physical Exam: General Appearance:Thin, frail, Chronic ill appearing, +Hearing impairment, No distress Head: normocephalic, Atraumatic Eyes: normal inspection, EOMI Neck: supple Respiratory/Chest: Normal breath sounds, CTA, No accessory muscle use Cardiovascular:Irregularly Irregular, No murmur Abdomen/GI:Soft, Non tender, Bowel sounds present Extremities/Musculoskeletal:normal inspection, no LE edema Neurologic/Psych:AAOX3, answering questions appropriately, speech fluent, decreased ROM due to hip pain Skin: normal color, warm Results & Data Results & Data ([facility]) Vital Signs (Past 12 Hours) Vital Signs Temp Pulse Pulse Resp BP Pulse Ox 04/13/22 09:01 70 04/13/22 06:57 36.9 C 68 16 93/51 L 97 Laboratory Results 04/13/22 Range/Units 10:11 PT 13.9 H (9.0-12.0) Seconds INR 1.3 H (0.9-1.1) Medications Administered Current Inpatient Medications Acetaminophen (Acetaminophen 325 Mg Tab) 650 mg PO Q4H PRN PRN Reason: pain/fever Stop: 05/09/22 21:20 Last Admin: 04/13/22 09:10 Dose: 650 mg Documented by: Albuterol (Albuterol Hfa 8 Gm Inhaler) 2 puffs INH QID PRN PRN Reason: Shortness Of Breath Or Wheezing Stop: 05/09/22 21:20 Ascorbic Acid (Ascorbic Acid 500 Mg Tab) 250 mg PO BID [facility] Stop: 05/09/22 21:20 Last Admin: 04/13/22 09:00 Dose: 250 mg Documented by: Digoxin (Digoxin 0.125 Mg Tab) 0.125 mg PO QAM ISHAN Stop: 05/10/22 08:59 Last Admin: 04/13/22 09:01 Dose: 0.125 mg Documented by: Ferrous Sulfate (Ferrous Sulfate 325 Mg Tab) 325 mg PO BID [facility] Stop: 05/09/22 21:20 Last Admin: 04/13/22 09:00 Dose: 325 mg Documented by: Fluticasone/Vilanterol (Fluticasone/Vilanterol 100/25mcg 14 Puffs/Inhaler) 1 puffs INH DAILY ISHAN Stop: 05/10/22 08:59 Last Admin: 04/13/22 09:02 Dose: 1 puffs Documented by: Furosemide (Furosemide 20 Mg Tab) 60 mg PO DAILY ISHAN Stop: 05/10/22 08:59 Last Admin: 04/13/22 09:01 Dose: Not Given Documented by: Gabapentin (Gabapentin 100 Mg Cap) 100 mg PO TID ISHAN Stop: 05/09/22 21:20 Last Admin: 04/13/22 08:59 Dose: 100 mg Documented by: Ceftriaxone Sodium 1,000 mg/ (Dextrose) 60 mls @ 100 mls/hr IV DAILY ISHAN; Protocol Stop: 04/15/22 08:59 Last Infusion: 04/13/22 09:55 Dose: Infused Documented by: Lactobacillus Acidophilus (Advanced Probiotic 1250 Mg Capsule) 2 cap PO DAILY [facility] Stop: 05/10/22 16:14 Last Admin: 04/13/22 09:00 Dose: 2 cap Documented by: Lidocaine (Lidocaine 5% 1 Patch) 1 patch TD QPM ISHAN Stop: 05/09/22 21:20 Last Admin: 04/12/22 19:49 Dose: 1 patch Documented by: Magnesium Oxide (Magnesium Oxide 400 Mg Tab) 400 mg PO DAILY ISHAN Stop: 05/10/22 08:59 Last Admin: 04/13/22 08:59 Dose: 400 mg Documented by: Metoprolol Succinate (Metoprolol Succ 25mg Ext Rel Tab) 12.5 mg PO AMHS [facility] Stop: 05/09/22 21:20 Last Admin: 04/13/22 09:01 Dose: Not Given Documented by: Miscellaneous (Remove Lidoderm Patch) 1 ea N/A DAILY@0900 [facility] Stop: 05/09/22 21:20 Last Admin: 04/13/22 09:04 Dose: 1 ea Documented by: Miscellaneous (Accolate - Order Awaiting Action) 1 ea N/A QS [facility] Stop: 05/10/22 00:00 Last Admin: 04/13/22 09:02 Dose: Not Given Documented by: Morphine Sulfate (Morphine Sulfate 2 Mg/Ml Carp) 2 mg IV Q6H PRN PRN Reason: Pain Stop: 04/23/22 21:20 Multivitamins/Folic Acid/Vitamin C (Multivitamin Chewable Tab) 1 tab PO QAM ISHAN Stop: 05/10/22 08:59 Last Admin: 04/13/22 09:01 Dose: 1 tab Documented by: Multivitamins/Minerals (Cerovite Adv Formula Tab) 1 tab PO QAM [facility] Stop: 05/10/22 16:44 Last Admin: 04/13/22 09:00 Dose: 1 tab Documented by: Ondansetron HCl (Ondansetron Inj 2 Mg/Ml 2 Ml Vial) 4 mg IV Q6H PRN PRN Reason: Nausea Stop: 05/09/22 21:20 Last Admin: 04/10/22 09:48 Dose: 4 mg Documented by: Oxycodone HCl (Oxycodone Hcl Ir 5 Mg Tab (Immediate Release)) 5 mg PO Q6H PRN PRN Reason: Pain Stop: 04/23/22 21:20 Pantoprazole Sodium (Pantoprazole 40 Mg Tab) 40 mg PO QAM [facility] Stop: 05/10/22 16:44 Last Admin: 04/13/22 09:01 Dose: 40 mg Documented by: Polyethylene Glycol (Polyethylene (Miralax) 17 Gm Pack) 17 gm PO DAILY PRN PRN Reason: Constipation Stop: 05/09/22 21:20 Potassium Chloride (Potassium Chloride 10 Meq Tabcr) 10 meq PO DAILY ISHAN Stop: 05/10/22 08:59 Last Admin: 04/13/22 09:01 Dose: 10 meq Documented by: Potassium Phosphate (Pot Phosphate Monobasic W/ Sod Tab) 1 tab PO QID [facility] Stop: 05/11/22 10:44 Last Admin: 04/13/22 08:59 Dose: 1 tab Documented by: Sertraline HCl (Sertraline Hcl 50 Mg Tablet) 50 mg PO QAM [facility] Stop: 05/10/22 08:59 Last Admin: 04/13/22 09:01 Dose: 50 mg Documented by: Sucralfate (Sucralfate 1 Gm/10 Ml Udc) 1 gm PO AC [facility] Stop: 05/10/22 16:44 Last Admin: 04/13/22 10:35 Dose: Not Given Documented by: Vitamin D (Cholecalciferol 1,000 Units 25 Mcg Tab) 2,000 units PO QAM [facility] Stop: 05/10/22 08:59 Last Admin: 04/13/22 09:00 Dose: 2,000 units Documented by: Warfarin Sodium (Warfarin Sod 1 Mg Tab) 1 mg PO DAILY@1600 IS[facility]AN Stop: 05/10/22 15:59 Last Admin: 04/12/22 16:51 Dose: 1 mg Documented by: (1) Closed sacral fracture Encounter type: initial encounter Zone of sacrum fracture: unspecified portion of sacrum Qualified Code(s): S32.10XA - Unspecified fracture of sacrum, initial encounter for closed fracture
[2022-04-13] MEDS ORDERED: methylPREDNISolone 4 MG TAB, 6 DAY TAPER PO SCH (11:00)
[2022-04-13 11:11] LABS: Hematocrit (blood only) 30.1 % (37-47); Hemoglobin 9.7 g/dL (12.0-16.0); Mean Corpuscular Hemoglobin 30.8 pg (25-34); Mean Corpuscular Hgb Conc 32.2 g/dL (32-36); Mean Corpuscular Volume 95.6 fL (80-100); Mean Platelet Volume 10.1 fL (7.4-10.4); Platelet Count 240 K/uL (130-400); RDW Coefficient of Variation 17.5 % (11.5-14.5); RDW Standard Deviation 61.1 fL (36.4-46.3); Red Blood Count 3.15 M/uL (4.2-5.4)
[2022-04-13 11:23] LABS: BUN Creatinine Ratio 33.8 (10-20); Calcium 7.4 mg/dl (8.5-10.1); Creatinine Clr Calc Pharmacy 51.5 ml/min; Est GFR (African American) 95.8 ml/min; Est GFR (Non-African American) 82.7 ml/min; Phosphorus 2.1 mg/dl (2.5-4.9); Potassium 3.7 mmol/L (3.5-5.1)
[2022-04-13] MEDS ORDERED: POT PHOSPHATE MONOBASIC W/ SOD TAB PO SCH (11:30)
[2022-04-13] MEDS: LIDOCAINE 5% 1 PATCH TD SCH (13:19)
[2022-04-13] MEDS: methylPREDNISolone 4 MG TAB PO SCH ×4 (13:19→20:09)
[2022-04-13 13:55] LABS: Adenovirus F 40/41 PCR Not Detected (NotDetected); Astrovirus PCR Not Detected (NotDetected); Campylobacter PCR Not Detected (NotDetected); Clostridium diff Toxin A/B PCR Not Detected (NotDetected); Cryptosporidium PCR Not Detected (NotDetected); Cyclospora cayetanensis PCR Not Detected (NotDetected); Entamoeba histolytica PCR Not Detected (NotDetected); Enteroaggregative E.coli(EAEC) Not Detected (NotDetected); Enteropathogenic E.coli (EPEC) Not Detected (NotDetected); Enterotoxigenic E.coli (ETEC) Not Detected (NotDetected); Giardia lamblia PCR Not Detected (NotDetected); Norovirus GI/GII PCR Not Detected (NotDetected); Plesiomonas shigelloides PCR Not Detected (NotDetected); Rotavirus A PCR Not Detected (NotDetected); Salmonella PCR Not Detected (NotDetected); Sapovirus PCR Not Detected (NotDetected); Shiga-like Toxin E.coli (STEC) Not Detected (NotDetected); Shigella/Enteroinvasive E.coli Not Detected (NotDetected); Vibrio cholerae PCR Not Detected (NotDetected); Vibrio species PCR Not Detected (NotDetected); Yersinia enterocolitica PCR Not Detected (NotDetected)
[2022-04-13] MEDS ORDERED: WARFARIN SOD 2.5 MG TAB PO SCH (16:00)
[2022-04-14 06:06] LABS: INR 1.2 (0.9-1.1); Prothrombin Time 12.6 Seconds (9.0-12.0)
[2022-04-14 06:09] LABS: Potassium 4.1 mmol/L (3.5-5.1)
[2022-04-14 06:10] LABS: BUN Creatinine Ratio 35.6 (10-20); Creatinine Clr Calc Pharmacy 64.6 ml/min; Est GFR (African American) 108.4 ml/min; Est GFR (Non-African American) 93.5 ml/min
[2022-04-14] MEDS: methylPREDNISolone 4 MG TAB PO SCH ×3 (06:34→17:12)
[2022-04-14 06:35] LABS: Hematocrit (blood only) 29.2 % (37-47); Hemoglobin 9.5 g/dL (12.0-16.0); Mean Corpuscular Hemoglobin 30.6 pg (25-34); Mean Corpuscular Hgb Conc 32.5 g/dL (32-36); Mean Corpuscular Volume 94.2 fL (80-100); Mean Platelet Volume 9.7 fL (7.4-10.4); Platelet Count 224 K/uL (130-400); RDW Coefficient of Variation 17.3 % (11.5-14.5); RDW Standard Deviation 59.4 fL (36.4-46.3)
[2022-04-14] MEDS: GABAPENTIN 100 MG CAP PO SCH ×3 (08:16→21:58)
[2022-04-14] MEDS: ASCORBIC ACID 500 MG TAB PO SCH ×2 (08:17→21:58)
[2022-04-14] MEDS: SERTRALINE HCL 50 MG TABLET PO SCH (08:18)
[2022-04-14] MEDS: CEROVITE ADV FORMULA TAB PO SCH (08:18)
[2022-04-14] MEDS: FERROUS SULFATE 325 MG TAB PO SCH ×2 (08:18→21:58)
[2022-04-14] MEDS: CHOLECALCIFEROL 1,000 UNITS 25 MCG TAB PO SCH (08:18)
[2022-04-14] MEDS: PANTOprazole 40 MG TAB PO SCH (08:19)
[2022-04-14] MEDS: DIGOXIN 0.125 MG TAB PO SCH (08:19)
[2022-04-14] MEDS: MULTIVITAMIN CHEWABLE TAB PO SCH (08:19)
[2022-04-14] MEDS: FLUTICASONE/VILANTEROL 100/25MCG 14 PUFFS/INHALER INH SCH (08:20)
[2022-04-14] MEDS: POT PHOSPHATE MONOBASIC W/ SOD TAB PO SCH ×4 (08:20→21:58)
[2022-04-14] MEDS: POTASSIUM CHLORIDE 10 MEQ TABCR PO SCH (08:21)
[2022-04-14] MEDS: FUROSEMIDE 20 MG TAB PO SCH (08:23)
[2022-04-14] MEDS: ADVANCED PROBIOTIC 1250 MG CAPSULE PO SCH (08:23)
[2022-04-14] MEDS: METOPROLOL SUCC 25MG EXT REL TAB PO SCH ×2 (08:23→21:59)
[2022-04-14] MEDS: LIDOCAINE 5% 1 PATCH TD SCH (08:25)
[2022-04-14] MEDS: cefTRIAXone SODIUM 1,000 MG in DEXTROSE 5% 50 ML IV SCH (08:36)
[2022-04-14] MEDS: WARFARIN SOD 5 MG TAB PO SCH (17:11)
--- NOTE | 2022-04-14 18:30 | Hospitalist Progress Note ---
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 Findings may represent insufficiency fracture, acute to subacute. An infectious etiology is considered less likely in the absence of surrounding soft tissue stranding, however cannot be entirely excluded. --Lumbar MRI:Unchanged appearance of degenerative changes with up to severe left and mild right neural foraminal stenosis. Fall precautions PT OT Appreciate Pain management Input Also consulted orthopedics Dr. Payne for input May need brace Continue gabapentin: Increased to 200mg TID Also Medrol taper course Continue current management Abnormal urinalysis Asymptomatic Urine culture positive for Proteus mirabilis (>70, 000 CFU) On Rocephin Malnutrition BMI 20.8 Senior Qa Tester consulted Continue supplements Chronic anemia FOBT negative Monitor Chronic Atrial fibrillation H/O Tachybradycardia Syndrome S/P PPM Continue digoxin, metoprolol Continue warfarin monitor INR 1.2 today Chronic HFpEF Continue Lasix, metoprolol Monitor renal function, volume status No signs of decompensation COPD No acute exacerbation continue home inhalers Depression continue zoloft DVT Px: Coumadin Code Status: Full Code Disposition: PT/OT prior to discharge Admission and Anticipated Discharge Date Admission Date: April 11, 2022 Subjective Patient is seen and examined at bedside States having hip pain but slowly improving Offers no other complaints Denies any chest pain, shortness of breath, dizziness, nausea, abdominal pain Review of Systems Review of Systems: All systems reviewed & are unremarkable except as noted in Subjective Physical Exam Physical Exam: Physical Exam: Vitals signs as noted above General Appearance:Thin, frail, Chronic ill appearing, +Hearing impairment, No distress Head: normocephalic, Atraumatic Eyes: normal inspection, EOMI Neck: supple, Trachea midline Respiratory/Chest: Normal breath sounds, CTA, No accessory muscle use Cardiovascular:Irregularly Irregular, No murmur Abdomen/GI:Soft, Non tender, Bowel sounds present Extremities/Musculoskeletal:normal inspection,1+ B/L LE edema Neurologic/Psych:AAOX3, grossly no focal neurological deficits Skin: normal color, warm Results & Data Results & Data ([facility]) Vital Signs (Past 12 Hours) Vital Signs Temp Pulse Pulse Resp BP Pulse Ox 04/14/22 15:19 36.5 C 73 16 90/61 L 96 04/14/22 08:19 68 04/14/22 07:41 36.4 C L 62 16 100/63 100 Laboratory Results Short CBC 04/14/22 Range/Units 05:43 WBC 5.10 (4.8-10.8) K/uL Hgb 9.5 L (12.0-16.0) g/dL Hct 29.2 L (37-47) % Plt Count 224 (130-400) K/uL BMP 04/14/22 05:43 Sodium 140 Potassium 4.1 Chloride 108 H Carbon Dioxide 28 BUN 21 Creatinine 0.59 L Glucose 92 Calcium 7.0 L (1) Closed sacral fracture Encounter type: initial encounter Zone of sacrum fracture: unspecified portion of sacrum Qualified Code(s): S32.10XA - Unspecified fracture of sacrum, initial encounter for closed fracture
[2022-04-14] MEDS ORDERED: methylPREDNISolone 4 MG TAB PO SCH (21:00)
[2022-04-15] MEDS: methylPREDNISolone 4 MG TAB PO SCH ×3 (05:33→16:14)
[2022-04-15 07:38] LABS: INR 1.3 (0.9-1.1); Prothrombin Time 13.9 Seconds (9.0-12.0)
[2022-04-15] MEDS: FLUTICASONE/VILANTEROL 100/25MCG 14 PUFFS/INHALER INH SCH (08:16)
[2022-04-15] MEDS: CEROVITE ADV FORMULA TAB PO SCH (08:17)
[2022-04-15] MEDS: MULTIVITAMIN CHEWABLE TAB PO SCH (08:17)
[2022-04-15] MEDS: FUROSEMIDE 20 MG TAB PO SCH (08:17)
[2022-04-15] MEDS: DIGOXIN 0.125 MG TAB PO SCH (08:17)
[2022-04-15] MEDS: PANTOprazole 40 MG TAB PO SCH (08:18)
[2022-04-15] MEDS: ADVANCED PROBIOTIC 1250 MG CAPSULE PO SCH (08:18)
[2022-04-15] MEDS: CHOLECALCIFEROL 1,000 UNITS 25 MCG TAB PO SCH (08:18)
[2022-04-15] MEDS: POT PHOSPHATE MONOBASIC W/ SOD TAB PO SCH ×3 (08:18→16:13)
[2022-04-15] MEDS: POTASSIUM CHLORIDE 10 MEQ TABCR PO SCH (08:18)
[2022-04-15] MEDS: SERTRALINE HCL 50 MG TABLET PO SCH (08:18)
[2022-04-15] MEDS: METOPROLOL SUCC 25MG EXT REL TAB PO SCH (08:19)
[2022-04-15] MEDS: ASCORBIC ACID 500 MG TAB PO SCH (08:19)
[2022-04-15] MEDS: FERROUS SULFATE 325 MG TAB PO SCH (08:19)
[2022-04-15] MEDS: GABAPENTIN 100 MG CAP PO SCH ×2 (08:19→13:16)
[2022-04-15] MEDS: LIDOCAINE 5% 1 PATCH TD SCH (08:24)
--- NOTE | 2022-04-15 13:54 | Orthopedic Consultation ---
Date of Consultation April 15, 2022 Assessment & Plan (1) Sacroiliac joint pain: Assessment low back pain. Plan at this time her symptoms could very well be related to her sacral fracture secondary to the fall. She also has severe neuroforaminal disease L5-S1 left related to spondylolisthesis. This also could contribute to some left buttock pain. I agree with pain management that continue physical therapy occupational therapy and injections are warranted. If she fails to respond to these modalities we may have to consider further intervention particularly if we diagnose radiculopathy versus a healing fracture as the source of her pain. History of Present Illness Reason for Consultation: Back and left buttock pain Attending Physician: Hima Mclain MD History of Present Illness This is a 71-year-old female who presents with back and left buttock pain. She has a history of fall several weeks ago sustaining a sacral fracture. She attempted rehab but returns with continued pain. She denies any clear radicular complaints. Denies any new recent trauma or event. Denies any numbness or tingling to lower extremities or weakness. Allergies Allergy/AdvReac Type Severity Reaction Status Date / Time oxycodone AdvReac Intermediate GI SYMPTOMS Verified 02/22/22 16:58 Home Medications Medication Instructions Recorded Confirmed Type metolazone 2.5 mg tablet 2.5 mg PO UD PRN 01/25/22 04/09/22 History acetaminophen 500 mg tablet 1,000 mg PO Q8H PRN #50 tab 01/30/22 04/09/22 Rx (Tylenol Extra Strength) albuterol sulfate 90 mcg/actuation 2 puff INHALATION QID PRN #8.5 g 01/30/22 04/09/22 Rx aerosol inhaler (Ventolin HFA) cholecalciferol (vitamin D3) 50 2,000 unit PO QAM 30 Days #30 cap 01/30/22 04/09/22 Rx mcg (2,000 unit) capsule (Vitamin D3) digoxin 125 mcg (0.125 mg) tablet 125 mcg PO QAM 30 Days #30 tab 01/30/22 04/09/22 Rx (Digitek) fluticasone 250 mcg-salmeterol 50 1 inh INHALATION BID 30 Days #60 ea 01/30/22 04/09/22 Rx mcg/dose blistr powdr for inhalation (Advair Diskus) iron,carbonyl 65 mg-vitamin C 125 1 tab PO BID 30 Days #60 tab 01/30/22 04/09/22 Rx mg tablet,delayed release (Vitron-C) lidocaine 5 % topical patch 1 patch TRANSDERMAL QPM #20 ea 01/30/22 04/09/22 Rx magnesium 200 mg tablet 200 mg PO DAILY 30 Days #30 tab 01/30/22 04/09/22 Rx ondansetron HCl 4 mg tablet 4 mg PO Q12H PRN #15 tab 01/30/22 04/09/22 Rx pediatric multivitamin no.7-folic 1 tab PO QAM 30 Days #30 tab 01/30/22 04/09/22 Rx acid 100 mcg chewable tablet (Flintstones Tab Chew) sertraline 50 mg tablet (Zoloft) 50 mg PO QAM 30 Days #30 tab 01/30/22 04/09/22 Rx warfarin 2.5 mg tablet See Rx Instructions .ROUTE 01/30/22 04/09/22 Rx .COMPLEX #30 tab zafirlukast 20 mg tablet (Accolate) 20 mg PO BID 30 Days #60 tab 01/30/22 04/09/22 Rx furosemide 40 mg tablet 60 mg PO DAILY 02/22/22 04/09/22 History metoprolol succinate 25 mg 12.5 mg PO AMHS 02/22/22 04/09/22 History tablet,extended release 24 hr potassium chloride 20 mEq 10 meq PO DAILY 02/22/22 04/09/22 History tablet,extended release(part/cryst) gabapentin 100 mg PO TID 04/09/22 04/09/22 History oxycodone 5 mg tablet 5 mg PO Q6H PRN 04/09/22 04/09/22 History Patient History Medical History (Updated 04/12/22 @ 09:13 by Richard Lo PA-C) A-fib S/P DANAE guided DCCV 10/2018. Reverted back to afib 03/2020. External DCCV 04/23/20. 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 Ivey S/P appendectomy S/P small bowel resection Family History Other Cancer Hypertension Lung disease No family history of adverse response to anesthesia Social History Smoking Status: Never smoker Second Hand Exposure: No; Hx Alcohol Use: Yes Alcohol type: beer Alcohol Intake Frequency: Monthly or Less Hx Substance Use: No Preferred Language: Cypriot Communication Ability: Effective Wire Weaver Cloth Required: No Beliefs That Will Affect Care: None marital status: Current Living Situation: Spouse Current Living Situation Comment: lives in first floor apartment with has one step to enter current occupational status: employed Other Information That Helps Us Care for You: Yes ( disabled; limited ability help to cook and care for) Feels Safe at Home: Yes Safety Concerns: Feels Safe At This Time Assistive Devices: Walker Physical Exam Physical Exam: On exam she is able to sit up in bed without difficulty. She exhibits reasonable strength testing lower extremities. Sensory is symmetric and intact. Negative logroll. Results & Data ([facility]) Vital Signs (Past 12 Hours) Vital Signs Temp Pulse Pulse Resp BP Pulse Ox 04/15/22 08:17 75 04/15/22 08:12 36.5 C 75 16 111/74 97
--- NOTE | 2022-04-15 16:11 | Hospitalist Progress Note ---
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 Findings may represent insufficiency fracture, acute to subacute. An infectious etiology is considered less likely in the absence of surrounding soft tissue stranding, however cannot be entirely excluded. --Lumbar MRI:Unchanged appearance of degenerative changes with up to severe left and mild right neural foraminal stenosis. Fall precautions PT OT Appreciate Pain management Input Appreciate Orthopedics input Continue gabapentin: Increased to 200mg TID Also Medrol taper course as recommended Patient may benefit from SI joint injection but needs to wait for at least 2 weeks since she has active infection (UTI) Patient would later be considered for intervention by if no improvement with Physical therapy and Injection. Patient ambulated about 225 feet with PT yesterday She feels comfortable to be discharged home with and follow up as outpatient. She understands and agrees with current management. UTI-POA Urine culture positive for Proteus mirabilis (>70, 000 CFU) On Rocephin--Completed 5 day course Malnutrition BMI 20.8 Career And Guidance Counselor consulted Continue supplements Chronic anemia FOBT negative Monitor Chronic Atrial fibrillation H/O Tachybradycardia Syndrome S/P PPM Continue digoxin, metoprolol Continue warfarin monitor INR 1.3 today Advised to follow up with Coumadin clinic upon discharge for further management Chronic HFpEF Continue Lasix, metoprolol Monitor renal function, volume status No signs of decompensation COPD No acute exacerbation continue home inhalers Depression continue zoloft DVT Px: Coumadin Code Status: Full Code Disposition: Home with HH Admission and Anticipated Discharge Date Admission Date: April 11, 2022 Subjective Patient is seen and examined at bedside Was able to ambulate better Hap pain is controlled Discussed with Orthopedics today Denies any chest pain, shortness of breath, dizziness, nausea, abdominal pain No other complaints Review of Systems Review of Systems: All systems reviewed & are unremarkable except as noted in Subjective Physical Exam Physical Exam: Physical Exam: Vitals signs as noted above General Appearance:Thin, frail, Chronic ill appearing, +Hearing impairment, No distress Head: normocephalic, Atraumatic Eyes: normal inspection, EOMI Neck: supple, Trachea midline Respiratory/Chest: Normal breath sounds, CTA, No accessory muscle use Cardiovascular:Irregularly Irregular, No murmur Abdomen/GI:Soft, Non tender, Bowel sounds present Extremities/Musculoskeletal:normal inspection,1+ B/L LE edema Neurologic/Psych:AAOX3, grossly no focal neurological deficits Skin: normal color, warm Results & Data Results & Data ([facility]) Vital Signs (Past 12 Hours) Vital Signs Temp Pulse Pulse Resp BP Pulse Ox 04/15/22 13:58 36.4 C L 70 16 104/68 98 04/15/22 08:17 75 04/15/22 08:12 36.5 C 75 16 111/74 97 (1) Closed sacral fracture Encounter type: initial encounter Zone of sacrum fracture: unspecified portion of sacrum Qualified Code(s): S32.10XA - Unspecified fracture of sacrum, initial encounter for closed fracture
[2022-04-15] MEDS: WARFARIN SOD 5 MG TAB PO SCH (16:12)
--- NOTE | 2022-04-15 16:29 | Discharge Summary ---
Date of Service April 15, 2022 Admission HPI Per Admitting Provider Patient is a 71-year-old female with history of CHF, COPD, GERD, hearing impairment, tachybradycardia syndrome S/P Pacer, essential tremor, history of gastric bypass, chronic anticoagulation with Coumadin, depression, protein calorie malnutrition, hypertensive heart disease and other medical problems who was recently hospitalized at [facility] for management of sacrococcygeal fracture, Lumbar anterolisthesis was treated conservatively and discharged to rehab facility. Patient was discharged home from rehab facility and was provided home health with home PT. Patient states having significant hip pain from waist down to her legs resulting in inability to stand, ambulate. She describes the pain as sharp, constant, and worsens with movement. She was evaluated by PCP and was started on gabapentin which she did not start the medication yet. She tried tramadol, oxycodone but still was not able to control the pain and so came to ED for further evaluation. She denies any fall at home. Also reports having poor appetite, dyspnea on exertion which is chronic. Patient has [facility] at home. She was evaluated by orthopedics as an outpatient who recommended conservative management. Denies any history of chest pain, dyspnea at rest, orthopnea, PND, cough, fever, chills, headache, numbness, change in vision, nausea, vomiting, abdominal pain, diarrhea, dysuria, hematuria. Admission Exam Per Admitting Provider Physical Exam Physical Exam: Physical Exam: Vitals signs as noted above General Appearance:Thin, frail, Chronic ill appearing, +Hearing impairment, No distress Head: normocephalic, Atraumatic Eyes: normal inspection, EOMI Neck: supple, Trachea midline Respiratory/Chest: Normal breath sounds, CTA, No accessory muscle use Cardiovascular:Irregularly Irregular, No murmur Abdomen/GI:Soft, Non tender, Bowel sounds present Extremities/Musculoskeletal:normal inspection,1+ B/L LE edema Neurologic/Psych:AAOX3, grossly no focal neurological deficits, decreased ROM due to hip pain Skin: normal color, warm Principal Diagnosis Sacrococcygeal fracture L5-S1 anterolisthesis Urinary Tract Infection Discharge Data Allergies Allergy/AdvReac Type Severity Reaction Status Date / Time oxycodone AdvReac Intermediate GI SYMPTOMS Verified 02/22/22 16:58 Consultations 04/09/22 18:22 ED Decision to Admit Stat 04/09/22 20:02 Consult Orthopedic Surgery Routine 04/09/22 20:06 Consult Pain Management Routine Ordered Studies 04/09/22 MR lumbar spine wo con Stat 04/09/22 13:37 MR pelvis wo con Stat Hospital Course (1) Closed sacral fracture: Recent sacrococcygeal fracture L5-S1 anterolisthesis Ambulatory dysfunction 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 Findings may represent insufficiency fracture, acute to subacute. An infectious etiology is considered less likely in the absence of surrounding soft tissue stranding, however cannot be entirely excluded. --Lumbar MRI:Unchanged appearance of degenerative changes with up to severe left and mild right neural foraminal stenosis. Fall precautions PT OT Appreciate Pain management Input Appreciate Orthopedics input Continue gabapentin: Increased to 200mg TID Also Medrol taper course as recommended Patient may benefit from SI joint injection but needs to wait for at least 2 weeks since she has active infection (UTI) Patient would later be considered for intervention by if no improvement with Physical therapy and Injection. Patient ambulated about 225 feet with PT yesterday She feels comfortable to be discharged home with HH and follow up as outpatient. She understands and agrees with current management. UTI-POA Urine culture positive for Proteus mirabilis (>70, 000 CFU) On Rocephin--Completed 5 day course Malnutrition BMI 20.8 Airline Attendant consulted Continue supplements Chronic anemia FOBT negative Monitor Chronic Atrial fibrillation H/O Tachybradycardia Syndrome S/P PPM Continue digoxin, metoprolol Continue warfarin monitor INR 1.3 today Advised to follow up with Coumadin clinic upon discharge for further management Chronic HFpEF Continue Lasix, metoprolol Monitor renal function, volume status No signs of decompensation COPD No acute exacerbation continue home inhalers Depression continue zoloft DVT Px: Coumadin Code Status: Full Code Disposition: Home with HH Total Time Total Time Spent Total Time Spent (In Minutes): 48 minutes Discharge Plan Discharge Items Patient Disposition: Home - Home Health Services Reason For Visit: HIP PAIN Discharge Diagnosis: Sacrococcygeal fracture L5-S1 anterolisthesis Urinary Tract Infection Activity: Per Instructions section Exercise/Sports: Gradually increase as tolerated Non-emergency contact: Primary Care Provider, Surgeon and Specialist Call non-emergency contact if: you have any medication questions, your symptoms worsen, your pain is concerning for you and you have a fever Follow-up/Referrals: Richard Lo PA-C [Physician Library Historian] - ([facility] [address] [place] [address] I have called the pain mgmt office and left a message with your name for an appointment. If the office does not call you with an appointment, please call them at the number provided. ) Olya Kimble DO [Outside Practitioners] - (Date & Time 04/30/2022 4:00 PM Provider Olya Kimble DO Department Family Practice [address] [place] [address] [address] [place] [address] ) Russell Olvera DO [Primary Care Provider] - (Date & Time 04/20/2022 11:20 AM Provider Russell Olvera DO Department Family Practice [facility] ) Diet: Heart Healthy Addtl Attending Provider Instructions: Follow-up with your primary care physician on 04/20/2022 11:20 AM Follow-up with your pain management Richard Lo PA-C for injection as recommended in 3 weeks Follow up with Coumadin Clinic for management of PT/INR and dosing of your Coumadin Your PT/INR is 1.3 today. Take coumadin 5mg today (04/15/22) and tomorrow 04/16/22. Further management as per Coumadin Clinic --Complete the methylprednisolone taper course as recommended. Take methylprednisolone 4 mg today (at 6pm and 9pm) 4mg three times a day on 04/16/22 4mg two times a day on 04/17/22 4mg once a day on 04/18/22 and STOP --Complete the antibiotic (Cefdinir) Course for 2 more days as prescribed. Seek immediate medical attention if your symptoms reoccur or worsen Please take all medications as instructed on discharge list below. Please call if you have any questions or problems. You can reach a [facility] hospitalist on duty at [facility] 24 hours a day by calling [phone] Pending Studies at Discharge: No Stand-Alone Forms: [facility], Smoking Cessation Medications and DC Order Prescriptions: New pantoprazole 40 mg Tablet,Delayed Release (Dr/Ec) 40 mg PO QAM Qty: 14 RF: 0 methylprednisolone 4 mg Tablet 4 mg PO UD Qty: 8 RF: 0 Continued metolazone 2.5 mg tablet 2.5 mg PO UD PRN (Reason: Edema) RF: 0 acetaminophen [Tylenol Extra Strength] 500 mg Tablet 1,000 mg PO Q8H PRN (Reason: pain) Qty: 50 RF: 0 lidocaine 5 % Adhesive Patch,Medicated 1 patch transdermal QPM Qty: 20 RF: 0 fluticasone propion-salmeterol [Advair Diskus] 250-50 mcg/dose Blister With Device 1 inh INHALATION BID 30 Days Qty: 60 RF: 0 ondansetron HCl 4 mg Tablet 4 mg PO Q12H PRN (Reason: NAUSEA/VOMITING) Qty: 15 RF: 0 warfarin 2.5 mg Tablet See Rx Instructions .ROUTE .COMPLEX Qty: 30 RF: 0 zafirlukast [Accolate] 20 mg tablet 20 mg PO BID 30 Days Qty: 60 RF: 0 digoxin [Digitek] 125 mcg (0.125 mg) tablet 125 mcg PO QAM 30 Days Qty: 30 RF: 0 albuterol sulfate [Ventolin HFA] 90 mcg/actuation Hfa Aerosol Inhaler 2 puff INHALATION QID PRN (Reason: Shortness Of Breath Or Wheezing) Qty: 8.5 RF: 0 sertraline [Zoloft] 50 mg Tablet 50 mg PO QAM 30 Days Qty: 30 RF: 0 magnesium 200 mg Tablet 200 mg PO DAILY 30 Days Qty: 30 RF: 0 Flintstones Tab Chew 100 mcg Tablet,Chewable 1 tab PO QAM 30 Days Qty: 30 RF: 0 cholecalciferol (vitamin D3) [Vitamin D3] 2,000 unit Capsule 2,000 unit PO QAM 30 Days Qty: 30 RF: 0 Vitron-C 65 mg iron- 125 mg Tablet,Delayed Release (Dr/Ec) 1 tab PO BID 30 Days Qty: 60 RF: 0 oxycodone 5 mg tablet 5 mg PO Q6H PRN (Reason: Pain) RF: 0 furosemide 40 mg tablet 60 mg PO DAILY RF: 0 metoprolol succinate 25 mg tablet extended release 24 hr 12.5 mg PO AMHS RF: 0 potassium chloride 20 mEq tablet,ER particles/crystals 10 meq PO DAILY RF: 0 Changed gabapentin 200 mg PO TID Qty: 0 RF: 0 Discharge Orders: Discharge Order (Routine); Ordered 04/15/22 Ordered By: Hima Mclain Admission Data Admit Date/Time: 04/11/22 12:06 Attending Provider: Hima Mclain Admit Provider: Hima Mclain Primary Care Provider: Russell Olvera Other Providers: David Payne Upendra ; Hima Mclain
[2022-04-16] MEDS ORDERED: methylPREDNISolone 4 MG TAB PO SCH (07:00)
[2022-04-17] MEDS ORDERED: methylPREDNISolone 4 MG TAB PO SCH (07:00)
[2022-04-18] MEDS ORDERED: methylPREDNISolone 4 MG TAB PO SCH (07:00)
== END 2022-04-15 18:18 | disposition home health service (06) | DRG 543 ==
LOC: 3N 12:18 → ED 12:18 → SUATTDRO 20:02 → 3N 20:48 → SUATTDRO 04-11 12:06

== ENCOUNTER 2022-09-13 14:06 | Inpatient (IN) ==
[2022-09-13 14:44] LABS: Hematocrit (blood only) 26.1 % (34.1-44.9); Hemoglobin 8.4 g/dl (12.0-16.0); Mean Corpuscular Hemoglobin 32.6 pg (25.0-34.0); Mean Corpuscular Hgb Conc 32.2 g/dL (32.0-36.0); Mean Corpuscular Volume 101.2 fL (80.0-100.0); Mean Platelet Volume 9.4 fL (9.4-12.3); Platelet Count 514 K/uL (130-400); RDW Coefficient of Variation 16.8 % (11.5-14.5); Red Blood Count 2.58 M/uL (3.93-5.22); White Blood Count 11.01 K/ul (4.8-10.8)
[2022-09-13 15:17] LABS: Albumin Globulin Ratio 1.1 (0.9-2); Albumin Level 3.2 gm/dl (3.4-5.0); BUN Creatinine Ratio 49.1 (10-20); Bilirubin,Total 0.4 mg/dl (0.2-1.0); Creatinine Clr Calc Pharmacy 64.9 ml/min; Est GFR (African American) 108.9 ml/min; Est GFR (Non-African American) 93.9 ml/min; Globulin 2.9 gm/dl (2.5-4.0); Potassium 3.8 mmol/L (3.5-5.1); Total Protein 6.1 gm/dl (6.0-8.3)
[2022-09-13 15:18] LABS: INR 1.1 (0.9-1.1); Partial Thromboplastin Ratio 0.9; Partial Thromboplastin Time 24.5 Seconds (21.0-31.0); Prothrombin Time 11.6 Seconds (9.0-12.0)
[2022-09-13 15:36] LABS: Thyroid Stimulating Hormone 6.642 uIu/ml (0.300-4.500)
[2022-09-13 15:47] LABS: Magnesium 2.3 mg/dl (1.7-2.4)
[2022-09-13 16:15] LABS: T4 Free Thyroxine 0.81 ng/dl (0.61-1.60)
[2022-09-13] MEDS ORDERED: FUROSEMIDE 40 MG/4 ML VIAL IV STA (16:50)
--- NOTE | 2022-09-13 16:50 | Emergency Department Note ---
History of Present Illness General Chief complaint: Chest Pain Stated complaint: CHEST PAIN; REFERRED BY DOCTOR Time Seen by Provider: 09/13/22 16:03 History of Present Illness Maximum Pain Intensity: 7 72-year-old female presents to the ED with a chief complaint of a low hemoglobin. She states that she had blood work done on . She was called for hemoglobin of 7. She was to report to the ED for evaluation. The patient also reports some generalized weakness. She states that her legs are very swollen. This has been a ongoing problem. She states that she has had several doses of IV Lasix at home through the [facility] and that did not help. She is unable to use compression stockings because her legs are too large. She had a feeding tube placed a couple of weeks ago secondary to malnutrition. She reports a little shortness of breath related to exertion. Chronic history of A. fib. Uncertain if on anticoagulation. Our system reports Coumadin, however her INR today is normal. Based on the [facility] cardiology note from today, the patient was sent here for further inpatient management for her congestive heart failure, pedal edema and anemia. He feels that the patient did not achieve any good results as an outpatient. She is on Coumadin and has subtherapeutic INRs. Home Medications Medication Instructions Recorded Confirmed Type metolazone 2.5 mg tablet 2.5 mg PO UD PRN Edema 01/25/22 06/18/22 History acetaminophen 500 mg tablet 1,000 mg PO Q8H PRN pain #50 tabs 01/30/22 06/18/22 Rx (Tylenol Extra Strength) albuterol sulfate 90 mcg/actuation 2 puff inhalation QID PRN 01/30/22 06/18/22 Rx aerosol inhaler (Ventolin HFA) Shortness Of Breath Or Wheezing #8.5 grams cholecalciferol (vitamin D3) 50 2,000 unit PO QAM 30 days #30 caps 01/30/22 06/18/22 Rx mcg (2,000 unit) capsule (Vitamin D3) digoxin 125 mcg (0.125 mg) tablet 125 mcg PO QAM 30 days #30 tabs 01/30/22 06/18/22 Rx (Digitek) fluticasone 250 mcg-salmeterol 50 1 inh inhalation BID 30 days #60 ea 01/30/22 06/18/22 Rx mcg/dose blistr powdr for inhalation (Advair Diskus) iron,carbonyl 65 mg-vitamin C 125 1 tab PO BID 30 days #60 tabs 01/30/2212/08 Rx mg tablet,delayed release (Vitron-C) ondansetron HCl 4 mg tablet 4 mg PO Q12H PRN NAUSEA/VOMITING 01/30/22 06/18/22 Rx #15 tabs sertraline 50 mg tablet (Zoloft) 50 mg PO QAM 30 days #30 tabs 01/30/22 06/18/22 Rx warfarin 2.5 mg tablet See Rx Instructions .Route 01/30/22 06/18/22 Rx .COMPLEX #30 tabs zafirlukast 20 mg tablet (Accolate) 20 mg PO BID 30 days #60 tabs 01/30/22 06/18/22 Rx furosemide 40 mg tablet 60 mg PO QAM 02/22/22 06/18/22 History metoprolol succinate 25 mg 12.5 mg PO BID 02/22/22 06/18/22 History tablet,extended release 24 hr potassium chloride 20 mEq 20 meq PO BID 02/22/22 06/18/22 History tablet,extended release(part/cryst) gabapentin 100 mg tablet 200 mg PO TID 06/08/22 06/18/22 History lidocaine 5 % topical patch 1 patch transdermal HS 06/08/22 06/18/22 History magnesium 200 mg tablet 200 mg PO QAM 06/08/22 06/18/22 History methylprednisolone 4 mg tablet 4 mg PO UD PRN Weight Gain 06/08/22 06/18/22 History omeprazole 40 mg capsule,delayed 40 mg PO QAM 06/08/22 06/18/22 History release Allergies Allergy/AdvReac Type Severity Reaction Status Date / Time No Known Allergies Allergy Verified 06/18/22 12:38 Past Med/Surg History Medical History A-fib S/P DANAE guided DCCV 10/2018. Reverted back to afib 03/2020. External DCCV 04/23/20. Anticoagulated warfarin daily CHF (congestive heart failure) COPD (chronic obstructive pulmonary disease) inhalers Diastolic dysfunction Grade 2 SUTTON (dyspnea on exertion) GERD (gastroesophageal reflux disease) Hard of hearing Hyperlipidemia Sacroiliac joint pain Tachy-corin syndrome s/p pacemaker insertion 10/2018 with DANAE/cardioversion Tremor Surgical History H/O colonoscopy H/O gastric bypass H/O hernia repair H/O ventral hernia repair History of cardioversion "awhile ago", [facility], [place]; f/u Dr. Haskins History of cholecystectomy History of esophagogastroduodenoscopy (EGD) History of transesophageal echocardiography (DANAE) Pacemaker Medtronic Leigh---placed 11/03/[address] Ivey S/P appendectomy S/P small bowel resection Family History Other Cancer Hypertension Lung disease No family history of adverse response to anesthesia Social History Smoking Status: Never smoker Second Hand Exposure: No; Hx Alcohol Use: Yes Alcohol type: beer Alcohol Intake Frequency: Monthly or Less Hx Substance Use: No Preferred Language: Cambodian Communication Ability: Effective Pc Tech Required: No Beliefs That Will Affect Care: None marital status: Current Living Situation: Spouse Current Living Situation Comment: lives in first floor apartment with has one step to enter current occupational status: employed Feels Safe at Home: Yes Assistive Devices: Glasses Review of Systems A total of 10 systems reviewed and were otherwise negative Physical Exam Vital Signs Vital Signs - 24 hr 09/13/22 14:17 09/13/22 16:24 09/13/22 16:24 Temperature 36.8 C Temperature Source Temporal Artery Scan Pulse Rate 88 Pulse Rate [Apical] 85 Respiratory Rate 28 H 18 Respiratory Effort / Characteristics Non-Labored Non-Labored Spontaneous Respiratory Depth Normal Normal Respiratory Pattern Regular Blood Pressure 123/77 Blood Pressure [Right Arm] 118/71 Blood Pressure Mean 92 Blood Pressure Mean [Right Arm] 86 Pulse Oximetry 98 95 94 Oxygen Delivery Method Room Air Room Air Room Air Sepsis Recent Fever Within 48 Hours No Sepsis New/Unexplained Change in Mental Status No Sepsis Action Taken by Nursing No Action Required 09/13/22 16:24 Temperature Temperature Source Pulse Rate 84 Pulse Rate [Apical] Respiratory Rate 18 Respiratory Effort / Characteristics Respiratory Depth Respiratory Pattern Blood Pressure Blood Pressure [Right Arm] Blood Pressure Mean Blood Pressure Mean [Right Arm] Pulse Oximetry 94 Oxygen Delivery Method Room Air Sepsis Recent Fever Within 48 Hours Sepsis New/Unexplained Change in Mental Status Sepsis Action Taken by Nursing CONSTITUTIONAL/VITAL SIGNS: Reviewed / noted above. GENERAL: Non-toxic in appearance. INTEGUMENTARY: Warm, dry, and Irena. HEAD: Normocephalic. EYES: without scleral icterus or trauma. ENT/OROPHARYNX: clear and moist. LYMPHADENOPATHY/NECK: Is supple without lymphadenopathy or meningismus. RESPIRATORY: Clear to auscultation bilaterally. No increased work of breathing. CARDIOVASCULAR: Regular rate and rhythm. GI/ABDOMEN: Soft and nontender. No organomegaly or pulsatile mass. EXTREMITIES: Warm and well perfused. Bilateral pedal edema. NEUROLOGICAL: Intact without focal deficits. PSYCHIATRIC: normal affect. MUSCULOSKELETAL: Normally developed with good muscle tone. TRIAGE NURSING DOCUMENTATION REVIEWED. Medical Decision Making Differential Diagnosis Differential includes acute coronary syndrome, myocardial infarction, CVA, TIA, anemia, infection, pneumonia, UTI, pyelonephritis, poor nutrition, dehydration, electrolyte disturbance,hypoglycemia. Medical Records Attestation: I reviewed the patient's medical records. Home Medications Current Medication List: was personally reviewed by me Laboratory Data Attestation: I reviewed the patient's lab results. Result diagrams: 09/13/22 14:35 09/13/22 14:35 Lab Results 09/13/22 09/13/22 09/13/22 Range/Units 14:35 14:35 14:35 WBC 11.01 H (4.8-10.8) K/ul RBC 2.58 L (3.93-5.22) M/uL Hgb 8.4 L (12.0-16.0) g/dl Hct 26.1 L (34.1-44.9) % MCV 101.2 H (80.0-100.0) fL MCH 32.6 (25.0-34.0) pg MCHC 32.2 (32.0-36.0) g/dL RDW Std Deviation 61.0 H (36.4-46.3) fL RDW Coeff of Saman 16.8 H (11.5-14.5) % Plt Count 514 H (130-400) K/uL MPV 9.4 (9.4-12.3) fL PT 11.6 (9.0-12.0) Seconds INR 1.1 (0.9-1.1) APTT 24.5 (21.0-31.0) Seconds PTT Ratio 0.9 Sodium (136-145) mmol/L Potassium (3.5-5.1) mmol/L Chloride (98-107) mmol/L Carbon Dioxide (21-32) mmol/L Anion Gap (3-11) BUN (6-23) mg/dl Creatinine (0.6-1.2) mg/dl Est Cr Clr Drug Dosing ml/min Est GFR ( Amer) ml/min Est GFR (Non-Af Amer) ml/min BUN/Creatinine Ratio (10-20) Glucose (70-99(Fasting)) mg/dl Calcium (8.5-10.1) mg/dl Magnesium (1.7-2.4) mg/dl Total Bilirubin (0.2-1.0) mg/dl AST (13-39) U/L ALT (7-52) U/L Alkaline Phosphatase (34-104) U/L Troponin I High Sens (0-14) pg/ml Total Protein (6.0-8.3) gm/dl Albumin (3.4-5.0) gm/dl Globulin (2.5-4.0) gm/dl Albumin/Globulin Ratio (0.9-2) TSH (0.300-4.500) uIu/ml Free T4 (0.61-1.60) ng/dl Digoxin (0.8-2.0) ng/ml Blood Type A Positive Antibody Screen NEGATIVE 09/13/22 09/13/22 09/13/22 Range/Units 14:35 14:36 14:36 WBC (4.8-10.8) K/ul RBC (3.93-5.22) M/uL Hgb (12.0-16.0) g/dl Hct (34.1-44.9) % MCV (80.0-100.0) fL MCH (25.0-34.0) pg MCHC (32.0-36.0) g/dL RDW Std Deviation (36.4-46.3) fL RDW Coeff of Saman (11.5-14.5) % Plt Count (130-400) K/uL MPV (9.4-12.3) fL PT (9.0-12.0) Seconds INR (0.9-1.1) APTT (21.0-31.0) Seconds PTT Ratio Sodium 140 (136-145) mmol/L Potassium 3.8 (3.5-5.1) mmol/L Chloride 109 H (98-107) mmol/L Carbon Dioxide 26 (21-32) mmol/L Anion Gap 5 (3-11) BUN 28 H (6-23) mg/dl Creatinine 0.57 L (0.6-1.2) mg/dl Est Cr Clr Drug Dosing 64.9 ml/min Est GFR ( Amer) 108.9 ml/min Est GFR (Non-Af Amer) 93.9 ml/min BUN/Creatinine Ratio 49.1 H (10-20) Glucose 77 (70-99(Fasting)) mg/dl Calcium 8.0 L (8.5-10.1) mg/dl Magnesium 2.3 (1.7-2.4) mg/dl Total Bilirubin 0.4 (0.2-1.0) mg/dl AST 23 (13-39) U/L ALT 22 (7-52) U/L Alkaline Phosphatase 72 (34-104) U/L Troponin I High Sens 18.0 H (0-14) pg/ml Total Protein 6.1 (6.0-8.3) gm/dl Albumin 3.2 L (3.4-5.0) gm/dl Globulin 2.9 (2.5-4.0) gm/dl Albumin/Globulin Ratio 1.1 (0.9-2) TSH 6.642 H (0.300-4.500) uIu/ml Free T4 0.81 (0.61-1.60) ng/dl Digoxin (0.8-2.0) ng/ml Blood Type Antibody Screen 09/13/22 Range/Units 14:36 WBC (4.8-10.8) K/ul RBC (3.93-5.22) M/uL Hgb (12.0-16.0) g/dl Hct (34.1-44.9) % MCV (80.0-100.0) fL MCH (25.0-34.0) pg MCHC (32.0-36.0) g/dL RDW Std Deviation (36.4-46.3) fL RDW Coeff of Saman (11.5-14.5) % Plt Count (130-400) K/uL MPV (9.4-12.3) fL PT (9.0-12.0) Seconds INR (0.9-1.1) APTT (21.0-31.0) Seconds PTT Ratio Sodium (136-145) mmol/L Potassium (3.5-5.1) mmol/L Chloride (98-107) mmol/L Carbon Dioxide (21-32) mmol/L Anion Gap (3-11) BUN (6-23) mg/dl Creatinine (0.6-1.2) mg/dl Est Cr Clr Drug Dosing ml/min Est GFR ( Amer) ml/min Est GFR (Non-Af Amer) ml/min BUN/Creatinine Ratio (10-20) Glucose (70-99(Fasting)) mg/dl Calcium (8.5-10.1) mg/dl Magnesium (1.7-2.4) mg/dl Total Bilirubin (0.2-1.0) mg/dl AST (13-39) U/L ALT (7-52) U/L Alkaline Phosphatase (34-104) U/L Troponin I High Sens (0-14) pg/ml Total Protein (6.0-8.3) gm/dl Albumin (3.4-5.0) gm/dl Globulin (2.5-4.0) gm/dl Albumin/Globulin Ratio (0.9-2) TSH (0.300-4.500) uIu/ml Free T4 (0.61-1.60) ng/dl Digoxin 0.6 L (0.8-2.0) ng/ml Blood Type Antibody Screen Imaging Data Radiologist's Impression: Chest X-Ray 09/13/22 16:46 XR chest 1V portable HISTORY: 72 years-old Female sob acute shortness of breath COMPARISON: 02/22/2022 TECHNIQUE: AP view of the chest FINDINGS: Left subclavian pacer. The cardiac silhouette is mildly enlarged. No pneumothorax, pleural effusion, airspace consolidation or overt pulmonary edema. Healed chronic left-sided rib fractures. Bones appear grossly intact. IMPRESSION: Cardiomegaly without acute process. ACT 112: Negative or not required by law. The above report was generated using voice recognition software. It may contain grammatical, syntax or spelling errors. Electronically signed by: Roe Bejarano M.D. 09/13/2022 5:07 PM ECG Data Attestation: I personally reviewed and interpreted this ECG as follows: Additional Comments: Twelve-lead EKG: Per my interpretation shows atrial fibrillation at a rate of 88. No ST elevation. No PVCs. Normal QTC. MDM Narrative 72-year-old female presents to the ED with a chief complaint of lower extremity edema that is appears to be mostly chronic in nature. She also was told she had a hemoglobin of 7 with outpatient blood work that was done last week. She feels generally weak. She has difficulty getting around because of the weight of her legs. She has had IV Lasix as an outpatient without much success. Her twelve- lead EKG today shows atrial fibrillation at a rate of 88 without ischemic change. Kidney function is normal. Hemoglobin is 8.4 today. CBC was otherwise unremarkable. Coagulation studies are normal. Free T4 is normal. Troponin is mildly elevated 18. Chest x-ray did not show acute process. I did review the cardiology note from today from Dr. Haskins. He recommends inpatient management for her pedal edema as well as anemia and generalized weakness and shortness of breath. I will speak with the hospitalist about the patient. Impression & Plan Anemia, Pedal edema, A-fib, Generalized weakness, Subtherapeutic international normalized ratio (INR), Congestive heart failure Discharge Plan Visit Data Chief Complaint: Chest Pain Stated Complaint: CHEST PAIN; REFERRED BY DOCTOR ED Provider: Usman Velázquez Discharge Problem: Anemia, Pedal edema, A-fib, Generalized weakness, Subtherapeutic international normalized ratio (INR), Congestive heart failure Patient Disposition: Being Evaluated by Hospitalist Forms Stand Alone Forms: My [id number] Prescriptions Prescriptions: No Action metolazone 2.5 mg tablet 2.5 mg PO UD PRN (Reason: Edema) Rx Instructions: 1 tab po daily as needed for LE edema acetaminophen [Tylenol Extra Strength] 500 mg Tablet 1,000 mg PO Q8H PRN (Reason: pain) Qty: 50 0RF fluticasone propion-salmeterol [Advair Diskus] 250-50 mcg/dose Blister With Device 1 inh INHALATION BID 30 Days Qty: 60 0RF ondansetron HCl 4 mg Tablet 4 mg PO Q12H PRN (Reason: NAUSEA/VOMITING) Qty: 15 0RF warfarin 2.5 mg Tablet See Rx Instructions .ROUTE .COMPLEX Qty: 30 0RF Rx Instructions: 2.5 mg orally; TAKES 2.5 MG ON WED AND SAT. THEN 1.25 MG ON MON, TUES, THURS, FRI. TAKES AT 1600 DAILY. zafirlukast [Accolate] 20 mg tablet 20 mg PO BID 30 Days Qty: 60 0RF digoxin [Digitek] 125 mcg (0.125 mg) tablet 125 mcg PO QAM 30 Days Qty: 30 0RF albuterol sulfate [Ventolin HFA] 90 mcg/actuation Hfa Aerosol Inhaler 2 puff INHALATION QID PRN (Reason: Shortness Of Breath Or Wheezing) Qty: 8.5 0RF sertraline [Zoloft] 50 mg Tablet 50 mg PO QAM 30 Days Qty: 30 0RF cholecalciferol (vitamin D3) [Vitamin D3] 2,000 unit Capsule 2,000 unit PO QAM 30 Days Qty: 30 0RF Vitron-C 65 mg iron- 125 mg Tablet,Delayed Release (Dr/Ec) 1 tab PO BID 30 Days Qty: 60 0RF omeprazole 40 mg Capsule,Delayed Release(Dr/Ec) 40 mg PO QAM gabapentin 100 mg Tablet 200 mg PO TID methylprednisolone 4 mg tablet 4 mg PO UD PRN (Reason: Weight Gain) Rx Instructions: As directed lidocaine 5 % adhesive patch,medicated 1 patch transdermal HS magnesium 200 mg tablet 200 mg PO QAM furosemide 40 mg tablet 60 mg PO QAM metoprolol succinate 25 mg tablet extended release 24 hr 12.5 mg PO BID potassium chloride 20 mEq tablet,ER particles/crystals 20 meq PO BID Referrals Referrals: PCP,NO [Primary Care Provider] -
--- NOTE | 2022-09-13 17:09 | XRay Report ---
XR chest 1V portable HISTORY: 72 years-old Female sob acute shortness of breath COMPARISON: 02/22/2022 TECHNIQUE: AP view of the chest FINDINGS: Left subclavian pacer. The cardiac silhouette is mildly enlarged. No pneumothorax, pleural effusion, airspace consolidation or overt pulmonary edema. Healed chronic left-sided rib fractures. Bones appea r grossly intact. IMPRESSION: Cardiomegaly without acute process. ACT 112: Negative or not required by law. The above report was generated using voice recognition software. It may contain grammatical, syntax o r spelling errors. Electronically signed by: Roe Bejarano M.D. 09/13/2022 5:07 PM
[2022-09-13] MEDS ORDERED: SODIUM CHLORIDE 0.9% 250 ML IV PRN (17:52)
--- NOTE | 2022-09-13 18:24 | History & Physical Report ---
Date of Service September 13, 2022 Assessment & Plan (1) Acute on chronic diastolic (congestive) heart failure: Plan: Presented with increasing shortness of breath and increasing leg edema for the last 2 weeks Failed outpatient treatment with intravenous Lasix Chest x-ray did not show any significant pulmonary edema but has bilateral leg edema We will continue with intravenous Lasix while in the hospital Cardiology Reevaluation (2) Tachy-corin syndrome: Plan: History of atrial fibrillation with controlled rate now and tachybradycardia syndrome Status post pacemaker placement (3) A-fib: Plan: As above (4) SOB (shortness of breath): Plan: Shortness of breath with minimal exertion and also orthopnea and PND Complicated by severe tricuspid regurgitation (5) Anemia: Plan: Reported to have anemia EGD that was done in June of this year remained unremarkable Will get fecal occult blood test Hemoglobin remained stable (6) Subtherapeutic international normalized ratio (INR): Plan: Has been on Coumadin but INR remains at 1 Will start Coumadin and continue with subcu Lovenox (7) Malnutrition following gastrointestinal surgery: Plan: History of COVID pneumonia and status post PEG tube placement for malnutrition And also history of gastrointestinal surgery She has been able to eat orally and also takes PEG tube feeding nightly Will ask nutritional assessment while in the hospital Start oral food DVT prophylaxis Subcu Lovenox and Coumadin CODE STATUS Full History of Present Illness Chief Complaint: Shortness of breath with minimal exertion, increasing swelling of the legs for the last 1 to 2 weeks Primary Care Provider: NO PCP With significantShe is a 72-year-old female with past medical history of tachybradycardia syndrome status post pacemaker placement, hypertensive heart disease with chronic diastolic congestive heart failure, 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 She was evaluated by outpatient cardiology today and was sent in to emergency room for continued management. Her recent weight gain has not been improving with intravenous Lasix on top of her usual p.o. doses and also there is question about low hemoglobin. She has been complaining of chest tightness and palpitation with orthopnea and PND without any significant chest pain. Denies any fever and or chills. No abdominal pain, nausea and or vomiting. No weakness involving any side in particular. The emergency room she was hemodynamically stable without any significant symptoms and the chest x-ray did not show any pulmonary edema but she was noted to have 2+ edema in the legs bilaterally. She has been on Coumadin but INR remained at 1. She will be given intravenous heparin and will be admitted to telemetry unit for continuation of care. Allergies Allergy/AdvReac Type Severity Reaction Status Date / Time No Known Allergies Allergy Verified 06/18/22 12:38 Home Medications Medication Instructions Recorded Confirmed Type metolazone 2.5 mg tablet 2.5 mg PO UD PRN Edema 01/25/22 09/13/22 History acetaminophen 500 mg tablet 1,000 mg PO Q8H PRN pain #50 tabs 01/30/22 09/13/22 Rx (Tylenol Extra Strength) albuterol sulfate 90 mcg/actuation 2 puff inhalation QID PRN 01/30/22 09/13/22 Rx aerosol inhaler (Ventolin HFA) Shortness Of Breath Or Wheezing #8.5 grams cholecalciferol (vitamin D3) 50 2,000 unit PO QAM 30 days #30 caps 01/30/22 09/13/22 Rx mcg (2,000 unit) capsule (Vitamin D3) digoxin 125 mcg (0.125 mg) tablet 125 mcg PO QAM 30 days #30 tabs 01/30/22 09/13/22 Rx (Digitek) fluticasone 250 mcg-salmeterol 50 1 inh inhalation BID 30 days #60 ea 01/30/22 09/13/22 Rx mcg/dose blistr powdr for inhalation (Advair Diskus) iron,carbonyl 65 mg-vitamin C 125 1 tab PO BID 30 days #60 tabs 01/30/22 09/13/22 Rx mg tablet,delayed release (Vitron-C) ondansetron HCl 4 mg tablet 4 mg PO Q12H PRN NAUSEA/VOMITING 01/30/22 06/18/22 Rx #15 tabs sertraline 50 mg tablet (Zoloft) 50 mg PO QAM 30 days #30 tabs 01/30/22 09/13/22 Rx warfarin 2.5 mg tablet See Rx Instructions .Route 01/30/22 09/13/22 Rx .COMPLEX #30 tabs zafirlukast 20 mg tablet (Accolate) 20 mg PO BID 30 days #60 tabs 01/30/22 09/13/22 Rx furosemide 40 mg tablet 40 mg PO QAM 02/22/22 09/13/22 History potassium chloride 20 mEq 20 meq PO BID 02/22/22 09/13/22 History tablet,extended release(part/cryst) gabapentin 100 mg tablet 400 mg PO TID 06/08/22 09/13/22 History magnesium 200 mg tablet 200 mg PO QAM 06/08/22 09/13/22 History methylprednisolone 4 mg tablet 4 mg PO UD PRN Weight Gain 06/08/22 06/18/22 History omeprazole 40 mg capsule,delayed 40 mg PO QAM 06/08/22 06/18/22 History release Past Med/Surg History Medical History A-fib S/P DANAE guided DCCV 10/2018. Reverted back to afib 03/2020. External DCCV 04/23/20. Anticoagulated warfarin daily CHF (congestive heart failure) COPD (chronic obstructive pulmonary disease) inhalers Diastolic dysfunction Grade 2 SUTTON (dyspnea on exertion) GERD (gastroesophageal reflux disease) Hard of hearing Hyperlipidemia Sacroiliac joint pain Tachy-corin syndrome s/p pacemaker insertion 10/2018 with DANAE/cardioversion Tremor Surgical History H/O colonoscopy H/O gastric bypass H/O hernia repair H/O ventral hernia repair History of cardioversion "awhile ago", [facility]; f/u Dr. Haskins History of cholecystectomy History of esophagogastroduodenoscopy (EGD) History of transesophageal echocardiography (DANAE) Pacemaker [employer] [place]---placed 11/03/[address] Ivey S/P appendectomy S/P small bowel resection Family History Other Cancer Hypertension Lung disease No family history of adverse response to anesthesia Social History Smoking Status: Never smoker Second Hand Exposure: Yes (); Tobacco Cessation Education Requested by Patient: No Hx Alcohol Use: No Hx Substance Use: No Preferred Language: Ghanaian Communication Ability: Effective Gliding Pilot Instructor Required: No Beliefs That Will Affect Care: None marital status: Current Living Situation: Spouse Current Living Situation Comment: Home with current occupational status: employed Other Information That Helps Us Care for You: No Feels Safe at Home: Yes Safety Concerns: Feels Safe At This Time Assistive Devices: Cane Review of Systems Review of Systems: All systems reviewed and are unremarkable except as mentioned in H&P Physical Exam Physical Exam: Lying in bed comfortably Constitutional: well nourished, + ill appearing, average body habitus and + malnourished Eyes: PERRL, conjunctivae normal, anicteric sclerae ENMT: external ear and nose normal, oropharynx normal Neck: trachea midline, no thyromegaly Respiratory: no respiratory distress Auscultation: + diminished lung sounds and + crackles (Minimal bibasilar crackles) Cardiovascular: Rate/Rhythm: regular rate and regular rhythm; not tachycardic Heart Sounds: normal S1, normal S2 and + murmur (2/6 ESM over tricuspid area) Extremities: + edema (2+ edema bilaterally) Gastrointestinal (Abdomen): Inspection/Auscultation: normal bowel sounds; + abdomen abnormal to inspection (J-tube in situ.Right lower quadrant tender spot without any localized lump) Percussion/Palpation: + abdomen tender (Right lower quadrant) and abdomen soft Musculoskeletal: No acute arthritis involving any joint Neurologic: Alert, awake and oriented x3. No focal sensory or no motor deficit appreciated Lymphatic: no cervical or axillary lymphadenopathy Results & Data Results & Data ([facility]) Vital Signs (Past 12 Hours) Vital Signs Temp Pulse Pulse Resp BP BP Pulse Ox 09/13/22 16:24 84 18 94 09/13/22 16:24 85 18 118/71 94 09/13/22 16:24 95 09/13/22 14:17 36.8 C 88 28 H 123/77 98 O2 Del Method 09/13/22 16:24 Room Air 09/13/22 16:24 Room Air 09/13/22 16:24 Room Air 09/13/22 14:17 Room Air Laboratory Results Short CBC 09/13/22 Range/Units 14:35 WBC 11.01 H (4.8-10.8) K/ul Hgb 8.4 L (12.0-16.0) g/dl Hct 26.1 L (34.1-44.9) % Plt Count 514 H (130-400) K/uL BMP 09/13/22 14:35 Sodium 140 Potassium 3.8 Chloride 109 H Carbon Dioxide 26 BUN 28 H Creatinine 0.57 L Glucose 77 Calcium 8.0 L Liver Function 09/13/22 Range/Units 14:35 Total Bilirubin 0.4 (0.2-1.0) mg/dl AST 23 (13-39) U/L ALT 22 (7-52) U/L Alkaline Phosphatase 72 (34-104) U/L Albumin 3.2 L (3.4-5.0) gm/dl Medications Administered Current Inpatient Medications Sodium Chloride (Nss) 250 mls @ 15 mls/hr IV .[id number] PRN PRN Reason: For Transfusion Duration Stop: 09/14/22 03:52 Code Status & VTE Plan VTE Prophylaxis Plan VTE Prophylaxis will be ordered: Yes
[2022-09-13] MEDS ORDERED: ALBUTEROL HFA 8 GM INHALER INH PRN (18:36)
[2022-09-13] MEDS ORDERED: ACETAMINOPHEN 500 MG TAB PO PRN (18:36)
[2022-09-13] MEDS ORDERED: metOLazone 2.5 MG TABLET PO PRN (18:36)
--- NOTE | 2022-09-13 19:31 | Electrocardiogram Report ---
Test Reason : Blood Pressure : / mmHG Vent. Rate : 088 BPM Atrial Rate : 105 BPM P-R Int : 000 ms QRS Dur : 086 ms QT Int : 340 ms P-R-T Axes : 000 -25 022 degrees QTc Int : 411 ms Atrial fibrillation with occasional ventricular-paced complexes Abnormal ECG When compared with ECG of 22-FEB-2022 14:02, Vent. rate has decreased BY 5 BPM Confirmed by Lee Lei ([id number]) on 09/13/2022 7:30:45 PM Referred By: Confirmed By:Sai Lei
[2022-09-13 21:03] LABS: Hematocrit (blood only) 27.3 % (34.1-44.9); Hemoglobin 8.7 g/dl (12.0-16.0)
[2022-09-13] MEDS: ENOXAPARIN INJ 60 MG/0.6 ML SYR SQ SCH (21:12)
[2022-09-13] MEDS: GABAPENTIN 400 MG CAP PO SCH (21:12)
[2022-09-13] MEDS: FERROUS SULFATE 325 MG TAB PO SCH (21:12)
[2022-09-13] MEDS: POTASSIUM CHLORIDE CRTAB 20 MEQ TABCR PO SCH (21:13)
[2022-09-13] MEDS: FUROSEMIDE 40 MG/4 ML VIAL IV SCH (21:13)
[2022-09-13] MEDS ORDERED: PEPTAMEN 1.5 CAL 1,000 ML BAG PO SCH (22:00)
[2022-09-14 07:24] LABS: Hematocrit (blood only) 22.1 % (34.1-44.9); Hemoglobin 7.2 g/dl (12.0-16.0); Mean Corpuscular Hemoglobin 32.6 pg (25.0-34.0); Mean Corpuscular Hgb Conc 32.6 g/dL (32.0-36.0); Mean Platelet Volume 9.9 fL (9.4-12.3); Platelet Count 478 K/uL (130-400); RDW Coefficient of Variation 16.5 % (11.5-14.5); RDW Standard Deviation 59.3 fL (36.4-46.3); Red Blood Count 2.21 M/uL (3.93-5.22); White Blood Count 7.63 K/ul (4.8-10.8)
[2022-09-14 07:49] LABS: BUN Creatinine Ratio 46.7 (10-20); Calcium 7.5 mg/dl (8.5-10.1); Chol HDL Ratio 2.2 (0-5); Creatinine Clr Calc Pharmacy 64.5 ml/min; Est GFR (Non-African American) 92.4 ml/min; Magnesium 2.2 mg/dl (1.7-2.4); Potassium 3.7 mmol/L (3.5-5.1)
[2022-09-14] MEDS: POTASSIUM CHLORIDE CRTAB 20 MEQ TABCR PO SCH ×2 (08:05→20:40)
[2022-09-14] MEDS: GABAPENTIN 400 MG CAP PO SCH ×3 (08:05→20:35)
[2022-09-14] MEDS: FERROUS SULFATE 325 MG TAB PO SCH ×2 (08:06→20:35)
[2022-09-14] MEDS: PANTOprazole 40 MG TAB PO SCH (08:06)
[2022-09-14] MEDS: SERTRALINE HCL 50 MG TABLET PO SCH (08:06)
[2022-09-14] MEDS: MAGNESIUM OXIDE 400 MG TAB PO SCH (08:07)
[2022-09-14] MEDS: CHOLECALCIFEROL 1,000 UNITS 25 MCG TAB PO SCH (08:09)
[2022-09-14] MEDS: ENOXAPARIN INJ 60 MG/0.6 ML SYR SQ SCH ×2 (08:09→20:34)
[2022-09-14] MEDS: FUROSEMIDE 40 MG/4 ML VIAL IV SCH ×2 (08:10→20:39)
[2022-09-14] MEDS: FLUTICASONE/VILANTEROL 100/25MCG 14 PUFFS/INHALER INH SCH (08:10)
--- NOTE | 2022-09-14 09:03 | XRay Report ---
XR chest 1V portable HISTORY: 72 years-old Female volume overload acute shortness of breath with volume overload COMPARISON: Chest radiograph 09/13/2022 TECHNIQUE: AP view of the chest FINDINGS: Cardiomediastinal and hilar silhouettes are within normal limits. Left subclavian pacer. No pneumotho rax, pleural effusion or overt pulmonary edema. Subtle subsegmental left basilar densities are likely secondary to summation density. Cholecystectomy. IMPRESSION: No acute process. ACT 112: Negative or not required by law. The above report was generated using voice recognition software. It may contain grammatical, syntax o r spelling errors. Electronically signed by: Roe Bejarano M.D. 09/14/2022 9:02 AM
--- NOTE | 2022-09-14 09:04 | Cardiology Consultation ---
Date of Consultation September 14, 2022 Assessment & Plan (1) Acute on chronic diastolic (congestive) heart failure: (2) Anemia: (3) Permanent atrial fibrillation: (4) Tricuspid regurgitation: (5) Tachy-corin syndrome: (6) Cardiac pacemaker in situ: Plan Medically complex 72-year-old female. Presented with acute on chronic HFpEF, NYHA class 3-4. Failed outpatient DTP and IV Lasix. Improving with IV diuresis inpatient. Remains SUTTON- improved breathing at rest. SOB and lower extremity edema likely multifactorial given CHF, severe valvular insufficiency, significant anemia, and Protein deficiency in the setting of malnutrition -Continue IV diuresis with Lasix 40 mg IV twice daily -Trend BMP. Replace potassium for a goal of 4.0 and mag of 2.0. Additional 20 meq of KCL given this am for a total of 40 meq this morning. -Hgb ~7, given her CHF recommend maintaining a hgb>10. Will defer to primary team regarding blood administration. -2 g sodium restriction. Strict I&O, daily STANDING weights. -On Coumadin for permanent atrial fibrillation, no signs of active bleeding. Patient was given subcu Lovenox yesterday. INR goal between 23. Continue to trend CBC. Should hemoglobin not improve/worsen may need to hold Coumadin. -Of note, patient's RV lead likely contributing to her TR however consideration of upgrade to BiV can potentially cause more risk/harm than benefit and it was recommended to treat conservatively. Case discussed with Dr. Haskins. Will follow Supervising Physician Co-Signing Physician Notes Patient seen examined the bedside. Admitted with progressive dyspnea and co ngestive heart failure. Failed outpatient heart failure treatment with IV diuretic therapy. Feeling much better since admission. Notes discomfort of her left lower extremity with mild erythema. Also notes discomfort involving her feeding tube. PE: VSS. Gen: NAD, AAO x3. Heart: Irregular rhythm. Normal S1-S2. No murmur. Lungs: Scant crackles at the bases bilateral. Abdomen: Left sided feeding tube with purulent drainage. Extremities: Bilateral lower extremity edema. Mild left lower extremity erythema with superficial excoriation. A/P: Agree with above INSTALLATION SUPERVISOR history, physical exam, assessment and plan. Continue IV diuresis with furosemide. Restart warfarin for goal INR of 2.0-3.0. Noncompliance with outpatient medication regimen suspected. I am also concerned regarding lower extremity cellulitis and superficial infection regarding her feeding tube. Case discussed with internal medicine. IV antibiotics will be initiated. In regard to her anemia. Repeat CBC will be performed in a.m. If hemoglobin remains below 8.0gm/dL, transfuse 1 unit of packed red blood cells. History of Present Illness Reason for Consultation: Acute on chronic diastolic CHF [facility] Attending Physician: Bob Alberts MD History of Present Illness Medically complex 72-year-old female presenting to the cardiology office today for an acute appointment as well as hospital follow-up. Patient was admitted from 08/31-09/03 at [facility] due to malnutrition. She also tested positive for COVID on 08/31. During this time a J- tube was placed. Since discharge she was having concerns regarding hypervolemia. On 09/06 patient was seen by laly at home due to hypervolemia. DTP started. Fluid retention persisted. On 09/07 and 09/08 she was given 80 mg of IV Lasix by laly at home. Weights remained labile and additional 80 mg of IV Lasix was given on 09/10. Of note, she also significant anemia with hemoglob in of 7.6 (normally between 10-11). Patient was seen by the undersigned yesterday in the office noting significant shortness of breath at rest and with exertion. Notable orthopnea and PND. Significant leg swelling. Labs: Hemoglobin low (8.7>> 7.2), subtherapeutic INR, renal function stable. Potassium 3.7. High-sensitivity troponin minimally elevated (18>>15.3), TSH elevated 6.6 Chest x-ray 09/13: No acute process Patient seen and examined at bedside. Chart and telemetry reviewed. Telemetry: AFIB, paced 80-90s bpm I&O: -330 mL Weight: 50.5 kg >> 46.8 kg ( bed scale ) Upon entrance into the room patient was resting comfortably in bed. Notes an improvement in her shortness of breath at rest but remains dyspneic with minimal exertion. Leg swelling improved but still remains. Had significant fatigue and poor exercise tolerance. No palpitations. No dizziness or syncope. Notes improvement in orthopnea. Denies any blood in the stool Past medical history: 1. Permanent atrial fibrillation, on Coumadin, metoprolol succinate and digoxin, [id number] score of 2 (female and age) a. History of DCCV 04/23/2020 2. Paroxysmal atrial tachycardia 3. 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 Severe tricuspid regurgitation per echo 03/2021, concerned that the RV pacing lead may be playing a role. TR classified as moderate on echo at [facility] 07/2021. 5. Chronic diastolic CHF, NYHA class 3 6. Essential tremor 7. Hypotension 8. ? JARRED, was on CPAP in the past with O2 9. H/o bariatric surgery 04/06/2004 a. 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 J-tube placement due to malnutrition, 08/31/2022 Allergies Allergy/AdvReac Type Severity Reaction Status Date / Time No Known Allergies Allergy Verified 06/18/22 12:38 Home Medications Medication Instructions Recorded Confirmed Type metolazone 2.5 mg tablet 2.5 mg PO UD PRN Edema 01/25/22 09/13/22 History acetaminophen 500 mg tablet 1,000 mg PO Q8H PRN pain #50 tabs 01/30/22 09/13/22 Rx (Tylenol Extra Strength) albuterol sulfate 90 mcg/actuation 2 puff inhalation QID PRN 01/30/22 09/13/22 Rx aerosol inhaler (Ventolin HFA) Shortness Of Breath Or Wheezing #8.5 grams cholecalciferol (vitamin D3) 50 2,000 unit PO QAM 30 days #30 caps 01/30/22 09/13/22 Rx mcg (2,000 unit) capsule (Vitamin D3) digoxin 125 mcg (0.125 mg) tablet 125 mcg PO QAM 30 days #30 tabs 01/30/22 09/13/22 Rx (Digitek) fluticasone 250 mcg-salmeterol 50 1 inh inhalation BID 30 days #60 ea 01/30/22 09/13/22 Rx mcg/dose blistr powdr for inhalation (Advair Diskus) iron,carbonyl 65 mg-vitamin C 125 1 tab PO BID 30 days #60 tabs 01/30/22 09/13/22 Rx mg tablet,delayed release (Vitron-C) ondansetron HCl 4 mg tablet 4 mg PO Q12H PRN NAUSEA/VOMITING 01/30/22 06/18/22 Rx #15 tabs sertraline 50 mg tablet (Zoloft) 50 mg PO QAM 30 days #30 tabs 01/30/22 09/13/22 Rx warfarin 2.5 mg tablet See Rx Instructions .Route 01/30/22 09/13/22 Rx .COMPLEX #30 tabs zafirlukast 20 mg tablet (Accolate) 20 mg PO BID 30 days #60 tabs 01/30/22 09/13/22 Rx furosemide 40 mg tablet 40 mg PO QAM 02/22/22 09/13/22 History potassium chloride 20 mEq 20 meq PO BID 02/22/22 09/13/22 History tablet,extended release(part/cryst) gabapentin 100 mg tablet 400 mg PO TID 06/08/22 09/13/22 History magnesium 200 mg tablet 200 mg PO QAM 06/08/22 09/13/22 History methylprednisolone 4 mg tablet 4 mg PO UD PRN Weight Gain 06/08/22 06/18/22 History omeprazole 40 mg capsule,delayed 40 mg PO QAM 06/08/22 06/18/22 History release Patient History Medical History A-fib S/P DANAE guided DCCV 10/2018. Reverted back to afib 03/2020. External DCCV 04/23/20. Anticoagulated warfarin daily CHF (congestive heart failure) COPD (chronic obstructive pulmonary disease) inhalers Diastolic dysfunction Grade 2 SUTTON (dyspnea on exertion) GERD (gastroesophageal reflux disease) Hard of hearing Hyperlipidemia Sacroiliac joint pain Tachy-corin syndrome s/p pacemaker insertion 10/2018 with DANAE/cardioversion Tremor Surgical History H/O colonoscopy H/O gastric bypass H/O hernia repair H/O ventral hernia repair History of cardioversion "awhile ago", [facility]; f/u Dr. Haskins History of cholecystectomy History of esophagogastroduodenoscopy (EGD) History of transesophageal echocardiography (DANAE) Pacemaker [employer] [place]---placed 11/03/[address] Ivey S/P appendectomy S/P small bowel resection Family History Other Cancer Hypertension Lung disease No family history of adverse response to anesthesia Social History Smoking Status: Never smoker Second Hand Exposure: Yes (); Tobacco Cessation Education Requested by Patient: No Hx Alcohol Use: No Hx Substance Use: No Preferred Language: Burmese Communication Ability: Effective Roll Panner Required: No Beliefs That Will Affect Care: None marital status: Current Living Situation: Spouse Current Living Situation Comment: Home with current occupational status: employed Other Information That Helps Us Care for You: No Feels Safe at Home: Yes Safety Concerns: Feels Safe At This Time Assistive Devices: Cane and Walker Review of Systems Review of Systems: All systems reviewed & are unremarkable except as noted in HPI & below Physical Exam Physical Exam: General: No acute distress. A+Ox3. + Tremor HEENT: Normocephalic. Atraumatic. Conjunctiva and sclera clear. NECK: No carotid bruits. + JVD. Carotid upstrokes are brisk. Heart: Tachycardic rate, irregular rhythm. S1 and S2 noted without murmur, rubs, gallops. Lungs: Diminished lung sounds. Rhonchi in right lung base. Bibasilar crackles. No wheezing. Abdomen: Normal bowel sounds. Soft. Nontender. No masses or organomegaly. Extremities: +2 BLLE pitting edema to thighs. Bilateral varicose veins. Pulses: radial=2/4, posterior tibial=2/4, dorsalis pedis = 2/4. NEURO: No focal deficits. PSYCH: Normal. Results & Data ([facility]) Vital Signs (Past 12 Hours) Vital Signs Temp Pulse Pulse Resp BP Pulse Ox O2 Del Method 09/14/22 08:04 36.7 C 93 H 19 94/62 L 99 Room Air 09/14/22 04:00 36.9 C 90 16 94/62 L 99 Room Air 09/13/22 22:07 79 09/13/22 23:00 Room Air 09/13/22 23:00 36.5 C 86 18 101/69 100 Room Air 09/13/22 21:00 82 18 100 Room Air Laboratory Results Cardiac Enzymes 09/13/22 09/13/22 09/13/22 Range/Units 14:35 14:36 18:57 AST 23 (13-39) U/L Troponin I High Sens 18.0 H 15.3 H (0-14) pg/ml Coagulation 09/13/22 Range/Units 14:35 PT 11.6 (9.0-12.0) Seconds APTT 24.5 (21.0-31.0) Seconds Lipids 09/14/22 Range/Units 06:19 Triglycerides 78 (0-150) mg/dl Cholesterol 122 (0-200) mg/dl HDL Cholesterol 55 mg/dl Cholesterol/HDL Ratio 2.2 (0-5) CBC 09/13/22 09/13/22 09/14/22 Range/Units 14:35 20:51 06:19 WBC 11.01 H 7.63 (4.8-10.8) K/ul RBC 2.58 L 2.21 L (3.93-5.22) M/uL Hgb 8.4 L 8.7 L 7.2 L (12.0-16.0) g/dl Hct 26.1 L 27.3 L 22.1 L (34.1-44.9) % Plt Count 514 H 478 H (130-400) K/uL Comprehensive Metabolic Panel 09/13/22 09/14/22 Range/Units 14:35 06:19 Sodium 140 140 (136-145) mmol/L Potassium 3.8 3.7 (3.5-5.1) mmol/L Chloride 109 H 109 H (98-107) mmol/L Carbon Dioxide 26 27 (21-32) mmol/L BUN 28 H 28 H (6-23) mg/dl Creatinine 0.57 L 0.60 (0.6-1.2) mg/dl Glucose 77 97 (70-99(Fasting)) mg/dl Calcium 8.0 L 7.5 L (8.5-10.1) mg/dl AST 23 (13-39) U/L ALT 22 (7-52) U/L Alkaline Phosphatase 72 (34-104) U/L Total Protein 6.1 (6.0-8.3) gm/dl Albumin 3.2 L (3.4-5.0) gm/dl Intake and Output 09/13/22 09/14/22 09/14/22 22:59 06:59 14:59 Intake Total 120 / 120 Output Total 450 / 450 425 / 425 Balance -330 / -330 -425 / -425 Intake: Oral 120 / 120 Output: Urine 450 / 450 425 / 425 Other: Weight 46.8 kg Weight Measurement Method Built in [facility]
[2022-09-14] MEDS ORDERED: POTASSIUM CHLORIDE CRTAB 20 MEQ TABCR PO STA (09:31)
[2022-09-14] MEDS: [UNRECOGNIZED DRUG - REMARK] SCH (12:10)
[2022-09-14 12:50] LABS: Adenovirus PCR Not Detected (NotDetected); Bordetella parapertussis PCR Not Detected (NotDetected); Bordetella pertussis PCR Not Detected (NotDetected); Chlamydia pneumoniae PCR Not Detected (NotDetected); Coronavirus 229E PCR Not Detected (NotDetected); Coronavirus CoV-2 (COVID19)PCR Not Detected (NotDetected); Coronavirus HKU1 PCR Not Detected (NotDetected); Coronavirus NL63 PCR Not Detected (NotDetected); Coronavirus OC43PCR Not Detected (NotDetected); Human Metapneumovirus PCR Not Detected (NotDetected); Influenza A PCR Not Detected (NotDetected); Influenza B PCR Not Detected (NotDetected); Mycoplasma pneumoniae PCR Not Detected (NotDetected); Parainfluenza Virus 1 PCR Not Detected (NotDetected); Parainfluenza Virus 2 PCR Not Detected (NotDetected); Parainfluenza Virus 3 PCR Not Detected (NotDetected); Parainfluenza Virus 4 PCR Not Detected (NotDetected); Respiratory Syncytial VirusPCR Not Detected (NotDetected); Rhinovirus/Enterovirus PCR Not Detected (NotDetected)
[2022-09-14] MEDS: WARFARIN SOD 2.5 MG TAB PO SCH (15:55)
[2022-09-14] MEDS: DIGOXIN 0.125 MG TAB PO SCH (15:55)
[2022-09-14] MEDS: ceFAZolin 1000MG 1,000 MG/7.5 ML SYR IV SCH ×2 (15:55→22:50)
[2022-09-14] MEDS: NEOMYCIN/POLYMYX/BACITR OINT 15 GM TUBE EXT SCH ×2 (16:15→20:36)
--- NOTE | 2022-09-14 16:17 | Hospitalist Progress Note ---
Date of Service September 14, 2022 Assessment & Plan (1) Acute on chronic diastolic (congestive) heart failure: Plan: Presented with increasing shortness of breath and increasing leg edema for the last 2 weeks Failed outpatient treatment with intravenous Lasix Chest x-ray did not show any significant pulmonary edema but has bilateral leg edema We will continue with intravenous Lasix while in the hospital Cardiology Reevaluation-appreciate input and recommendation Cumulative fluid balance is -535 mm We will continue current dose of intravenous Lasix Probable left lower leg cellulitis J-tube site seems to be infected with some drains Will start intravenous Ancef and apply local Neosporin at the J-tube site Wound care has been consulted (2) Tachy-corin syndrome: Plan: History of atrial fibrillation with controlled rate now and tachybradycardia syndrome Status post pacemaker placement (3) A-fib: Plan: As above (4) SOB (shortness of breath): Plan: Shortness of breath with minimal exertion and also orthopnea and PND Complicated by severe tricuspid regurgitation (5) Anemia: Plan: Reported to have anemia EGD that was done in June of this year remained unremarkable Will get fecal occult blood test Hemoglobin went down to 7.2-we will check hemoglobin tomorrow and if it is below 8 we will transfuse 1 unit of blood (6) Subtherapeutic international normalized ratio (INR): Plan: Has been on Coumadin but INR remains at 1 Will start Coumadin and continue with subcu Lovenox Will check INR tomorrow and keep INR between 2-3 (7) Malnutrition following gastrointestinal surgery: Plan: History of COVID pneumonia and status post PEG tube placement for malnutrition And also history of gastrointestinal surgery She has been able to eat orally and also takes PEG tube feeding nightly Will ask nutritional assessment while in the hospital Start oral food DVT prophylaxis Subcu Lovenox and Coumadin CODE STATUS Full Admission and Anticipated Discharge Date Admission Date: September 13, 2022 Subjective 09/14/2022 The patient was seen and examined in telemetry unit She has been feeling much better since admission Shortness of breath is diminished and swelling of the legs are getting better Abdominal pain remains as it is Review of Systems Review of Systems: All systems reviewed and are unremarkable except as mentioned in H&P Physical Exam Physical Exam: Lying in bed comfortably Constitutional: well developed, + ill appearing, average body habitus and + malnourished; + not well nourished Eyes: PERRL, conjunctivae normal, anicteric sclerae ENMT: external ear and nose normal, oropharynx normal Neck: trachea midline, no thyromegaly Respiratory: no respiratory distress Auscultation: + diminished lung sounds and + crackles (Minimal bibasilar crackles) Cardiovascular: Rate/Rhythm: regular rate and regular rhythm; not tachycardic Heart Sounds: normal S1, normal S2 and + murmur (2/6 ESM over tricuspid area) Extremities: + edema (2+ edema bilaterally) Gastrointestinal (Abdomen): Inspection/Auscultation: normal bowel sounds; + abdomen abnormal to inspection (J-tube in situ.Right lower quadrant tender spot without any localized lump) Percussion/Palpation: + abdomen tender (Right lower quadrant) and abdomen soft Drainage from the insertion of J-tube. Minor infection noted on the right lower quadrant area Musculoskeletal: No acute arthritis involving any joint Neurologic: normal touch/pain/proprioception and moves all extremities; no focal motor deficits and not confused Lymphatic: no cervical or axillary lymphadenopathy Results & Data Results & Data ([facility]) Vital Signs (Past 12 Hours) Vital Signs Temp Pulse Pulse Resp BP Pulse Ox O2 Del Method 09/14/22 15:33 37.1 C 87 19 105/66 98 Room Air 09/14/22 15:00 90 09/14/22 12:01 36.6 C 78 16 104/65 92 Room Air 09/14/22 08:04 36.7 C 93 H 19 94/62 L 99 Room Air Laboratory Results Short CBC 09/13/22 09/14/22 Range/Units 20:51 06:19 WBC 7.63 (4.8-10.8) K/ul Hgb 8.7 L 7.2 L (12.0-16.0) g/dl Hct 27.3 L 22.1 L (34.1-44.9) % Plt Count 478 H (130-400) K/uL BMP 09/14/22 06:19 Sodium 140 Potassium 3.7 Chloride 109 H Carbon Dioxide 27 BUN 28 H Creatinine 0.60 Glucose 97 Calcium 7.5 L Medications Administered Current Inpatient Medications Acetaminophen (Acetaminophen 500 Mg Tab) 1,000 mg PO Q8H PRN PRN Reason: pain Stop: 10/13/22 18:35 Albuterol (Albuterol Hfa 8 Gm Inhaler) 2 puffs INH QIDR PRN PRN Reason: Shortness Of Breath Or Wheezing Stop: 10/13/22 18:35 Digoxin (Digoxin 0.125 Mg Tab) 0.125 mg PO DAILY@1600 [facility] Stop: 10/14/22 15:59 Last Admin: 09/14/22 15:55 Dose: 0.125 mg Enoxaparin Sodium (Enoxaparin Inj 60 Mg/0.6 Ml Syr) 50 mg SQ Q12H [facility] Stop: 10/13/22 20:59 Last Admin: 09/14/22 08:09 Dose: 50 mg Enteral Nutritional Formula (Peptamen 1.5 Rafa 1,000 Ml Bag) 1,000 ml JT DAILY@1900 [facility]; Protocol Stop: 10/14/22 18:59 Ferrous Sulfate (Ferrous Sulfate 325 Mg Tab) 325 mg PO BID [facility] Stop: 10/13/22 20:59 Last Admin: 09/14/22 08:06 Dose: 325 mg Fluticasone/Vilanterol (Fluticasone/Vilanterol 100/25mcg 14 Puffs/Inhaler) 1 puffs INH DAILY [facility] Stop: 10/14/22 08:59 Last Admin: 09/14/22 08:10 Dose: 1 puffs Furosemide (Furosemide 40 Mg/4 Ml Vial) 40 mg IV BID [facility] Stop: 10/13/22 20:59 Last Admin: 09/14/22 08:10 Dose: 40 mg Gabapentin (Gabapentin 400 Mg Cap) 400 mg PO TID [facility] Stop: 10/13/22 20:59 Last Admin: 09/14/22 14:29 Dose: 400 mg Cefazolin Sodium (Ancef 1000mg) 1,000 mg in 7.5 mls @ 2.5 mls/min IV Q8H [facility]; Protocol Stop: 09/21/22 15:29 Last Admin: 09/14/22 15:55 Dose: 2.5 mls/min Magnesium Oxide (Magnesium Oxide 400 Mg Tab) 200 mg PO QAM [facility] Stop: 10/14/22 08:59 Last Admin: 09/14/22 08:07 Dose: 200 mg Miscellaneous (Zarfirlukast-Order Awaiting Action) 1 each N/A QS [facility] Stop: 10/14/22 00:00 Last Admin: 09/14/22 16:02 Dose: Not Given Miscellaneous (Stop Order: D/C Tube Feeds After 12 Hrs) 1 each N/A DAILY@1000 [facility] Stop: 10/14/22 09:59 Last Admin: 09/14/22 12:10 Dose: 1 each Neomycin/Polymyxin/Bacitracin (Neomycin/Polymyx/Bacitr Oint 15 Gm Tube) 1 appln EXT TID [facility] Stop: 10/14/22 20:59 Pantoprazole Sodium ([facility]oprazole 40 Mg Tab) [facility] [place]: 10/14/22 08:59 Last Admin: 09/14/22 08:06 Dose: 40 mg Potassium Chloride (Potassium Chloride Crtab 20 Meq Tabcr) 20 meq PO BID [facility] Stop: 10/13/22 20:59 Last Admin: 09/14/22 08:05 Dose: 20 meq Sertraline HCl (Sertraline Hcl 50 Mg Tablet) [facility] Stop: 10/14/22 08:59 Last Admin: 09/14/22 08:06 Dose: 50 mg Vitamin D (Cholecalciferol 1,000 Units 25 Mcg Tab) 2,[facility] Stop: 10/14/22 08:59 Last Admin: 09/14/22 08:09 Dose: 2,000 units Warfarin Sodium (Warfarin Sod 2.5 Mg Tab) 2.5 mg PO DAILY@1600 [facility] Stop: 10/14/22 15:59 Last Admin: 09/14/22 15:55 Dose: 2.5 mg
[2022-09-14] MEDS: PEPTAMEN 1.5 CAL 1,000 ML BAG JT SCH (18:39)
[2022-09-14] MEDS ORDERED: PEPTAMEN 1.5 CAL 1,000 ML BAG JT SCH (22:00)
[2022-09-15 06:39] LABS: Basophils # (auto) 0.03 K/uL (0-0.2); Basophils % (auto) 0.4 %; Eosinophils # (auto) 0.35 K/uL (0-0.50); Eosinophils % (auto) 5.1 %; Hematocrit (blood only) 22.9 % (34.1-44.9); Hemoglobin 7.5 g/dl (12.0-16.0); Immature Granulocytes # (auto) 0.02 K/uL (0.00-0.02); Immature Granulocytes % (auto) 0.3 %; Lymphocytes # (auto) 1.31 K/uL (1.2-3.4); Lymphocytes % (auto) 19.1 %; Mean Corpuscular Hemoglobin 32.5 pg (25.0-34.0); Mean Corpuscular Hgb Conc 32.8 g/dL (32.0-36.0); Mean Corpuscular Volume 99.1 fL (80.0-100.0); Mean Platelet Volume 9.5 fL (9.4-12.3); Monocytes # (auto) 0.51 K/uL (0.24-0.82); Monocytes % (auto) 7.4 %; Neutrophils # (auto) 4.65 K/uL (1.4-6.5); Neutrophils % (auto) 67.7 %; Platelet Count 509 K/uL (130-400); RDW Coefficient of Variation 16.9 % (11.5-14.5); RDW Standard Deviation 59.5 fL (36.4-46.3); Red Blood Count 2.31 M/uL (3.93-5.22); White Blood Count 6.87 K/ul (4.8-10.8)
[2022-09-15 07:14] LABS: INR 1.2 (0.9-1.1); Prothrombin Time 12.3 Seconds (9.0-12.0)
[2022-09-15 07:15] LABS: BUN Creatinine Ratio 49.3 (10-20); Calcium 7.4 mg/dl (8.5-10.1); Creatinine Clr Calc Pharmacy 45.1 ml/min; Est GFR (African American) 93.6 ml/min; Est GFR (Non-African American) 80.8 ml/min; Magnesium 2.3 mg/dl (1.7-2.4); Potassium 4.2 mmol/L (3.5-5.1)
[2022-09-15] MEDS: ceFAZolin 1000MG 1,000 MG/7.5 ML SYR IV SCH ×2 (07:43→16:49)
[2022-09-15] MEDS: ENOXAPARIN INJ 60 MG/0.6 ML SYR SQ SCH ×2 (07:43→21:42)
[2022-09-15] MEDS: FERROUS SULFATE 325 MG TAB PO SCH ×2 (07:44→21:43)
[2022-09-15] MEDS: FLUTICASONE/VILANTEROL 100/25MCG 14 PUFFS/INHALER INH SCH (07:44)
[2022-09-15] MEDS: CHOLECALCIFEROL 1,000 UNITS 25 MCG TAB PO SCH (07:44)
[2022-09-15] MEDS: MAGNESIUM OXIDE 400 MG TAB PO SCH (07:45)
[2022-09-15] MEDS: GABAPENTIN 400 MG CAP PO SCH ×3 (07:45→21:42)
[2022-09-15] MEDS: NEOMYCIN/POLYMYX/BACITR OINT 15 GM TUBE EXT SCH ×3 (07:46→21:44)
[2022-09-15] MEDS: PANTOprazole 40 MG TAB PO SCH (07:47)
[2022-09-15] MEDS: [UNRECOGNIZED DRUG - REMARK] SCH (07:47)
[2022-09-15] MEDS: SERTRALINE HCL 50 MG TABLET PO SCH (07:47)
[2022-09-15] MEDS: POTASSIUM CHLORIDE CRTAB 20 MEQ TABCR PO SCH ×2 (07:48→21:49)
[2022-09-15] MEDS: FUROSEMIDE 40 MG/4 ML VIAL IV SCH ×2 (08:49→21:49)
[2022-09-15] MEDS ORDERED: SODIUM CHLORIDE 0.9% 250 ML IV PRN (10:54)
--- NOTE | 2022-09-15 12:28 | Cardiology Progress Note ---
Date of Service September 15, 2022 Assessment & Plan (1) Acute on chronic diastolic (congestive) heart failure: (2) Permanent atrial fibrillation: (3) Tricuspid regurgitation: (4) Cardiac pacemaker in situ: (5) Anemia: Plan Continue IV diuresis with furosemide. Dose warfarin for goal INR of 2.0-3.0. Agree with transfusion of 1 unit packed red blood cells. Continue antibiotics as per internal medicine. Wound care consult regarding J-tube drainage site infection. Admission and Anticipated Discharge Date Admission Date: September 15, 2022 Subjective Patient seen examined the bedside. Lower extremity edema improved. Fluid balance -1.4 L. Hemoglobin trending upward slightly. Renal function remained stable. Patient denies chest pain or palpitations. Telemetry reveals atrial fibrillation in the 80s. INR is subtherapeutic. Subcu Lovenox initiated. Review of Systems Review of Systems: All systems reviewed & are unremarkable except as noted in Subjective Physical Exam Constitutional: + ill appearing and + thin Respiratory: no respiratory distress, no labored breathing and no retractions Auscultation: + diminished lung sounds (Bases) and + rales (Scant Rales at bases bilateral); no rhonchi and no wheezes Cardiovascular: Rate/Rhythm: + irregularly irregular Heart Sounds: normal S1 and normal S2; no murmur Vessels: radial pulses present; no JVD and no carotid bruit Extremities: + edema (1-2+ bilateral pretibial edema, mild left lower extremity erythema) Neurologic: CN's II-XI intact bilaterally and moves all extremities Results & Data ([facility]) Vital Signs (Past 12 Hours) Vital Signs Temp Pulse Pulse Resp BP BP BP 09/15/22 12:02 36.4 C L 83 16 103/65 09/15/22 11:52 82 09/15/22 11:47 36.3 C L 82 16 100/64 09/15/22 11:28 36.3 C L 82 16 95/61 L 09/15/22 08:00 36.4 C L 88 16 111/67 09/15/22 02:59 36.4 C L 82 15 105/68 Pulse Ox O2 Del Method 09/15/22 12:02 97 09/15/22 11:52 09/15/22 11:47 96 09/15/22 11:28 100 09/15/22 08:00 98 Room Air 09/15/22 02:59 98 Room Air
[2022-09-15] MEDS: WARFARIN SOD 2.5 MG TAB PO SCH (16:50)
[2022-09-15] MEDS: DIGOXIN 0.125 MG TAB PO SCH (16:50)
--- NOTE | 2022-09-15 17:48 | Hospitalist Progress Note ---
Date of Service September 15, 2022 Assessment & Plan (1) SOB (shortness of breath): Plan 72 yo F is being managed for the following: (1) Acute on chronic diastolic (congestive) heart failure: Plan: Presented with increasing shortness of breath and increasing leg edema for the last 2 weeks [employer] Failed outpatient treatment . Admitting Chest x-ray did not show any significant pulmonary edema but has bilateral leg edema Cardiology Reevaluation-appreciate input and recommendation, managing diuresis Cumulative fluid balance is -535 mm We will continue current dose of intravenous Lasix Probable left lower leg cellulitis J-tube site seems to be infected with some drains c/w intravenous Ancef and apply local Neosporin at the J-tube site Wound care has been consulted Tachy-corin syndrome: Afib Plan: History of atrial fibrillation with controlled rate now and h/o tachybradycardia syndrome Status post pacemaker placement SOB (shortness of breath): Shortness of breath with minimal exertion and also orthopnea and PND Complicated by severe tricuspid regurgitation See above. Anemia: Plan: Reported to have anemia EGD that was done in June of this year remained unremarkable Will get fecal occult blood test Hb 7.5, given 1 unit prbc, f/u Hb daily and as needed. (6) Subtherapeutic international normalized ratio (INR): Plan: Has been on Coumadin but INR remains subtherapeutic Will start Coumadin and continue with subcu Lovenox Will check INR tomorrow and keep INR between 2-3 (7) Malnutrition following gastrointestinal surgery: Plan: History of COVID pneumonia and status post PEG tube placement for malnutrition And also history of gastrointestinal surgery She has been able to eat orally and also takes PEG tube feeding nightly Will ask nutritional assessment while in the hospital Start oral food DVT prophylaxis: Subcu Lovenox and Coumadin CODE STATUS: Full Admission and Anticipated Discharge Date Admission Date: September 15, 2022 Subjective Patient seen and examined at bedside as a follow-up of acute on chronic diastolic heart failure, LLE cellulitis, likely G-tube site cellulitis. Patient was sitting up in chair, on room air, NAD, reports no new acute event overnight, reports eating okay and moving bowels okay, reports improving shortness of breath and reports feeling better. Denies other review of symptoms. Physical Exam Physical Exam: GENERAL: Alert and oriented x3. NAD, on RA. appears malnourished and weak. HEENT: No pallor, no icterus. Pupils equal, round and reactive to light. Oral mucosa moist. NECK: No JVD, no neck masses. HEART: S1 and S2 heard. Regular rate and rhythm. + murmur, no gallop. RESPIRATORY SYSTEM: Normal AP diameter. No accessory muscle use. No wheezing, b/b crackles. ABDOMEN: Soft, bowel sounds present, nontender, no distention. PEG tube entry site minimal erythema CENTRAL NERVOUS SYSTEM: No facial droop. Speech is clear. Obeys simple commands. Moves extremities. EXTREMITIES: No edema, LLE erythema improving. Results & Data Results & Data ([facility]) Vital Signs (Past 12 Hours) Vital Signs Temp Pulse Pulse Resp BP BP Pulse Ox 09/15/22 16:50 80 09/15/22 14:32 36.4 C L 78 16 97 09/15/22 13:32 36.4 C L 83 16 94 09/15/22 12:32 85 16 98/59 L 98 09/15/22 12:02 36.4 C L 83 16 103/65 97 09/15/22 11:52 82 09/15/22 11:47 36.3 C L 82 16 100/64 96 09/15/22 11:28 36.3 C L 82 16 95/61 L 100 09/15/22 08:00 36.4 C L 88 16 111/67 98 O2 Del Method 09/15/22 16:50 09/15/22 14:32 09/15/22 13:32 09/15/22 12:32 09/15/22 12:02 09/15/22 11:52 09/15/22 11:47 09/15/22 11:28 09/15/22 08:00 Room Air
[2022-09-15] MEDS: PEPTAMEN 1.5 CAL 1,000 ML BAG JT SCH (20:12)
[2022-09-16] MEDS: ceFAZolin 1000MG 1,000 MG/7.5 ML SYR IV SCH ×2 (00:07→08:45)
[2022-09-16 06:38] LABS: Hematocrit (blood only) 28.5 % (34.1-44.9); Hemoglobin 9.5 g/dl (12.0-16.0); Mean Corpuscular Hemoglobin 32.3 pg (25.0-34.0); Mean Corpuscular Hgb Conc 33.3 g/dL (32.0-36.0); Mean Corpuscular Volume 96.9 fL (80.0-100.0); Mean Platelet Volume 9.6 fL (9.4-12.3); Platelet Count 510 K/uL (130-400); RDW Coefficient of Variation 16.7 % (11.5-14.5); RDW Standard Deviation 57.2 fL (36.4-46.3); Red Blood Count 2.94 M/uL (3.93-5.22)
[2022-09-16 06:49] LABS: INR 1.1 (0.9-1.1); Prothrombin Time 12.1 Seconds (9.0-12.0)
[2022-09-16 06:57] LABS: BUN Creatinine Ratio 60.3 (10-20); Calcium 7.6 mg/dl (8.5-10.1); Creatinine Clr Calc Pharmacy 46.3 ml/min; Est GFR (African American) 96.7 ml/min; Est GFR (Non-African American) 83.4 ml/min; Magnesium 2.3 mg/dl (1.7-2.4); Phosphorus 2.9 mg/dl (2.5-4.9); Potassium 4.1 mmol/L (3.5-5.1)
[2022-09-16] MEDS: [UNRECOGNIZED DRUG - REMARK] SCH (08:46)
[2022-09-16] MEDS: FLUTICASONE/VILANTEROL 100/25MCG 14 PUFFS/INHALER INH SCH (08:55)
[2022-09-16] MEDS: GABAPENTIN 400 MG CAP PO SCH ×3 (08:58→21:14)
[2022-09-16] MEDS: PANTOprazole 40 MG TAB PO SCH (08:59)
[2022-09-16] MEDS: CHOLECALCIFEROL 1,000 UNITS 25 MCG TAB PO SCH (08:59)
[2022-09-16] MEDS: SERTRALINE HCL 50 MG TABLET PO SCH (08:59)
[2022-09-16] MEDS: FERROUS SULFATE 325 MG TAB PO SCH ×2 (08:59→21:11)
[2022-09-16] MEDS: POTASSIUM CHLORIDE CRTAB 20 MEQ TABCR PO SCH ×2 (09:06→21:19)
[2022-09-16] MEDS: NEOMYCIN/POLYMYX/BACITR OINT 15 GM TUBE EXT SCH ×3 (09:06→21:14)
[2022-09-16] MEDS: FUROSEMIDE 40 MG/4 ML VIAL IV SCH ×2 (09:07→21:19)
[2022-09-16] MEDS: ENOXAPARIN INJ 60 MG/0.6 ML SYR SQ SCH ×2 (09:07→21:11)
[2022-09-16] MEDS ORDERED: WARFARIN SOD 2.5 MG TAB PO ONE (09:14)
[2022-09-16] MEDS: MAGNESIUM OXIDE 400 MG TAB PO SCH (10:37)
[2022-09-16] MEDS ORDERED: PIPERACILLIN/TAZOBACTAM 3.375 GM in DEXTROSE 5% 100 ML IV ONE (11:15)
[2022-09-16] MEDS ORDERED: Nursing to Pharmacy Communication SCH (11:15)
--- NOTE | 2022-09-16 11:39 | Communication Note ---
Date of Service: September 16, 2022 Received a consult for an infected J-tube site. Viewed pt's tube, and reviewed Jun 2022 EGD. This type feeding tube is placed by surgery. Would defer evaluation to surgery. Messaged the primary hospitalist who placed the consult.
--- NOTE | 2022-09-16 13:12 | Cardiology Progress Note ---
Date of Service September 16, 2022 Assessment & Plan (1) Acute on chronic diastolic (congestive) heart failure: (2) Permanent atrial fibrillation: (3) Tricuspid regurgitation: (4) Cardiac pacemaker in situ: (5) Anemia: (6) Urinary tract infection due to Proteus: Plan Continue IV diuresis with furosemide. Dose warfarin for goal INR of 2.0-3.0. Continue Lovenox bridge. Hemoglobin improved status post transfusion of 2 units packed red blood cells. Monitor hemoglobin. Continue antibiotics as per internal medicine for coverage of UTI, wound infection, and cellulitis.. Wound care consult regarding J-tube drainage site infection. Surgical consultation pending at this time. Admission and Anticipated Discharge Date Admission Date: September 15, 2022 Subjective Patient seen examined the bedside. Edema improving. Telemetry reveals atrial fibrillation in the 80s with occasional paced beats. Notes feeling fatigued and washed out. No orthopnea or PND. Denies chest discomfort. No fevers overnight. Fluid balance -3.6 L. Serum creatinine remained stable and within normal limits. Review of Systems Review of Systems: All systems reviewed & are unremarkable except as noted in Subjective Physical Exam Constitutional: + ill appearing and + thin Respiratory: no respiratory distress, no labored breathing and no retractions Auscultation: + diminished lung sounds (Bases) and + rales (Scant Rales at bases bilateral); no rhonchi and no wheezes Cardiovascular: Rate/Rhythm: + irregularly irregular Heart Sounds: normal S1 and normal S2; no murmur Vessels: radial pulses present; no JVD and no carotid bruit Extremities: + edema (1+ bilateral pretibial edema, mild left lower extremity erythema) Neurologic: CN's II-XI intact bilaterally and moves all extremities Results & Data ([facility]) Vital Signs (Past 12 Hours) Vital Signs Temp Pulse Pulse Resp BP Pulse Ox O2 Del Method 09/16/22 10:46 36.5 C 90 18 100/63 97 Room Air 09/16/22 08:00 36.8 C 85 16 101/65 95 Room Air 09/16/22 07:39 84 09/16/22 03:14 36.5 C 91 H 18 96/63 L 97 Room Air
--- NOTE | 2022-09-16 13:25 | XRay Report ---
KUB CLINICAL HISTORY: J-tube infection. FINDINGS: 2 AP supine abdominal radiographs are correlated with abdominal CT dated 01/25/2022. Cholecy stectomy clips and suture material are noted in the right upper quadrant a jejunostomy tube projects over the midabdomen. There is no bowel obstruction. Moderate to severe fecal retention is seen in the colon. No evidence of intraperitoneal free air is identified on the supine images. There are no abno rmal abdominal calcifications. The skeletal structures are osteopenic and appear intact. Cardiomegaly and pacemaker leads are seen in the lower chest. IMPRESSION: 1. A jejunostomy tube is in place. 2. No bowel obstruction is seen. 3. Moderate to severe constipation. Electronically signed by: Jason Bergeron M.D. 09/16/2022 1:24 PM
--- NOTE | 2022-09-16 13:49 | Surgery Consultation ---
Date of Consultation September 16, 2022 Assessment & Plan (1) Malnutrition following gastrointestinal surgery: Her J-tube seems to be working without issue There is no clinical signs of any abscess at her J-tube site Some barrier cream can be used around the site to help with the excoriation from leakage With regards to her right lower quadrant induration, she does have a small open wound at that site with some eschar present Can start Santyl daily to the wound site There are no appreciable abscesses at either area that would warrant an I&D She can follow-up with her surgeon as an outpatient once she is discharged Surgery will sign off at this time, please call with any questions or concerns (2) Jejunostomy tube site pain: History of Present Illness Reason for Consultation: Possible J-tube infection, right lower quadrant abscess Attending Physician: Hipolito Lopez MD History of Present Illness This is a 72-year-old female who was admitted 3 days ago with heart failure. She was recently at [facility] in [place] and had a J-tube placed by [facility] surgery. She is unsure if anything else was done surgically at that time. It was noticed today that there was some erythema around her J-tube site as well as some erythema and swelling in her right groin. She states she does have some mild pain around her J-tube in her right groin. She denies any increased drainage from around the tube or her right groin. She was set to see her surgeon for follow-up today but was instead admitted here. Allergies Allergy/AdvReac Type Severity Reaction Status Date / Time No Known Allergies Allergy Verified 06/18/22 12:38 Home Medications Medication Instructions Recorded Confirmed Type metolazone 2.5 mg tablet 2.5 mg PO UD PRN Edema 01/25/22 09/13/22 History acetaminophen 500 mg tablet 1,000 mg PO Q8H PRN pain #50 tabs 01/30/22 09/13/22 Rx (Tylenol Extra Strength) albuterol sulfate 90 mcg/actuation 2 puff inhalation QID PRN 01/30/22 09/13/22 Rx aerosol inhaler (Ventolin HFA) Shortness Of Breath Or Wheezing #8.5 grams cholecalciferol (vitamin D3) 50 2,000 unit PO QAM 30 days #30 caps 01/30/22 09/13/22 Rx mcg (2,000 unit) capsule (Vitamin D3) digoxin 125 mcg (0.125 mg) tablet 125 mcg PO QAM 30 days #30 tabs 01/30/22 09/13/22 Rx (Digitek) fluticasone 250 mcg-salmeterol 50 1 inh inhalation BID 30 days #60 ea 01/30/22 09/13/22 Rx mcg/dose blistr powdr for inhalation (Advair Diskus) iron,carbonyl 65 mg-vitamin C 125 1 tab PO BID 30 days #60 tabs 01/30/22 09/13/22 Rx mg tablet,delayed release (Vitron-C) ondansetron HCl 4 mg tablet 4 mg PO Q12H PRN NAUSEA/VOMITING 01/30/22 06/18/22 Rx #15 tabs sertraline 50 mg tablet (Zoloft) 50 mg PO QAM 30 days #30 tabs 01/30/22 09/13/22 Rx warfarin 2.5 mg tablet See Rx Instructions .Route 01/30/22 09/13/22 Rx .COMPLEX #30 tabs zafirlukast 20 mg tablet (Accolate) 20 mg PO BID 30 days #60 tabs 01/30/22 09/13/22 Rx furosemide 40 mg tablet 40 mg PO QAM 02/22/22 09/13/22 History potassium chloride 20 mEq 20 meq PO BID 02/22/22 09/13/22 History tablet,extended release(part/cryst) gabapentin 100 mg tablet 400 mg PO TID 06/08/22 09/13/22 History magnesium 200 mg tablet 200 mg PO QAM 06/08/22 09/13/22 History methylprednisolone 4 mg tablet 4 mg PO UD PRN Weight Gain 06/08/22 06/18/22 History omeprazole 40 mg capsule,delayed 40 mg PO QAM 06/08/22 06/18/22 History release Patient History Medical History A-fib S/P DANAE guided DCCV 10/2018. Reverted back to afib 03/2020. External DCCV 04/23/20. Anticoagulated warfarin daily CHF (congestive heart failure) COPD (chronic obstructive pulmonary disease) inhalers Diastolic dysfunction Grade 2 SUTTON (dyspnea on exertion) GERD (gastroesophageal reflux disease) Hard of hearing Hyperlipidemia Sacroiliac joint pain Tachy-corin syndrome s/p pacemaker insertion 10/2018 with DANAE/cardioversion Tremor Surgical History H/O colonoscopy H/O gastric bypass H/O hernia repair H/O ventral hernia repair History of cardioversion "awhile ago", [facility]; f/u Dr. Haskins History of cholecystectomy History of esophagogastroduodenoscopy (EGD) History of transesophageal echocardiography (DANAE) Pacemaker [employer] Leigh---placed 11/03/[address] Ivey S/P appendectomy S/P small bowel resection Family History Other Cancer Hypertension Lung disease No family history of adverse response to anesthesia Social History Smoking Status: Never smoker Second Hand Exposure: Yes (); Tobacco Cessation Education Requested by Patient: No Hx Alcohol Use: No Hx Substance Use: No Preferred Language: Kinyarwanda Communication Ability: Effective Advanced Manufacturing Engineer Required: No Beliefs That Will Affect Care: None marital status: Current Living Situation: Spouse Current Living Situation Comment: Home with current occupational status: employed Other Information That Helps Us Care for You: No Feels Safe at Home: Yes Safety Concerns: Feels Safe At This Time Assistive Devices: Cane and Walker Review of Systems Review of Systems: All systems reviewed & are unremarkable except as noted in Subjective Physical Exam Constitutional: + cachectic and + underweight Eyes: PERRL, conjunctivae normal, anicteric sclerae ENMT: external ear and nose normal, oropharynx normal Neck: trachea midline, no thyromegaly Respiratory: normal respiratory effort Cardiovascular: Rate/Rhythm: regular rate Gastrointestinal (Abdomen): Abdomen soft, nontender, nondistended J-tube in place in left upper quadrant with some mild erythema surrounding tube, no drainage, no fluctuance Right lower quadrant induration with some eschar present, no fluctuance Musculoskeletal: no cyanosis or clubbing, extremities motor strength 5/5 Skin: no rashes, warm and dry Neurologic: PERRL, EOMI, accommodation nl, no face palsy, no dysarthria Psychiatric: A+Ox3, euthymic affect Results & Data ([facility]) Vital Signs (Past 12 Hours) Vital Signs Temp Pulse Pulse Resp BP Pulse Ox O2 Del Method 09/16/22 10:46 36.5 C 90 18 100/63 97 Room Air 09/16/22 08:00 36.8 C 85 16 101/65 95 Room Air 09/16/22 07:39 84 09/16/22 03:14 36.5 C 91 H 18 96/63 L 97 Room Air PG Care Time/CCT Total # of Minutes Spent Total Time Spent with Patient: Total time spent is greater than 50% in coordination of care (as documented) at patient's floor/unit and/or counseling patient: Coding Level of Care Code 74277 Initial Inpt Care Lvl 3 Diagnoses Malnutrition following gastrointestinal surgery K91.2 Jejunostomy tube site pain K94.19
[2022-09-16] MEDS: DIGOXIN 0.125 MG TAB PO SCH (15:36)
[2022-09-16] MEDS: WARFARIN SOD 2.5 MG TAB PO SCH (15:36)
[2022-09-16] MEDS ORDERED: PIPERACILLIN/TAZOBACTAM 3.375 GM in DEXTROSE 5% 100 ML IV SCH (16:00)
--- NOTE | 2022-09-16 16:15 | Hospitalist Progress Note ---
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 Admitting Chest x-ray did not show any significant pulmonary edema but had bilateral leg edema Cardiology evaluation-appreciate input and recommendation, managing diuresis We will continue current dose of intravenous Lasix Pt reports improving breathing. On Room Air. Probable left lower leg cellulitis J-tube site seems to be infected with some drains Ancef 09/14 to zosyn 09/16; Surgical consult. ID consult. Appreciate surgery eval, d/w ID, recs to monitor off atb, Continue local wound care, Wound care consulted. Will get US venous doppler LLE. Tachy-corin syndrome: Afib Plan: History of atrial fibrillation with controlled rate now and h/o tachybradycardia syndrome Status post pacemaker placement SOB (shortness of breath): Shortness of breath with minimal exertion and also orthopnea and PND at presentation. Complicated by severe tricuspid regurgitation See above. Anemia: Plan: Reported to have anemia EGD that was done in June of this year remained unremarkable Will get fecal occult blood test Hb 7.5 on 09/15, given 1 unit prbc, f/u Hb daily and as needed. Hb above 9. (6) Subtherapeutic international normalized ratio (INR): Plan: Has been on Coumadin but INR remains subtherapeutic c/w Coumadin and continue with subcu Lovenox INR daily and keep INR between 2-3. Extra dose of warfarin today. (7) Malnutrition following gastrointestinal surgery: Plan: History of COVID pneumonia and status post PEG tube placement for malnutrition And also history of gastrointestinal surgery She has been able to eat orally and also takes PEG tube feeding nightly Will ask nutritional assessment while in the hospital Start oral food DVT prophylaxis: Subcu Lovenox and Coumadin CODE STATUS: Full Admission and Anticipated Discharge Date Admission Date: September 15, 2022 Subjective Patient seen and examined at bedside as a follow-up of acute on chronic diastolic heart failure, LLE cellulitis, likely G-tube site cellulitis. Patient was lying in bed, on room air, NAD, reports no new acute event overnight, but reports not feeling well in AM, reports eating okay and moving bowels okay, reports improving shortness of breath and reports some belly pain on left/j tube site. Denies other review of symptoms. Physical Exam Physical Exam: GENERAL: Alert and oriented x3. NAD, on RA. appears malnourished and weak/ill and frail. HEENT: No pallor, no icterus. Pupils equal, round and reactive to light. Oral mucosa moist. NECK: No JVD, no neck masses. HEART: S1 and S2 heard. irregular rate and rhythm. + murmur, no gallop. RESPIRATORY SYSTEM: Normal AP diameter. No accessory muscle use. No wheezing, b/b crackles. ABDOMEN: Soft, bowel sounds present, +tender at peg tube site, no distention. PEG tube entry site with erythema. RLQ abd wound w/ erythema, appears chronic/scabs. CENTRAL NERVOUS SYSTEM: No facial droop. Speech is clear. Obeys simple commands. Moves extremities. EXTREMITIES: No edema, LLE erythema ongoing. no warmth difference appreciated b/l legs. Results & Data Results & Data ([facility]) Vital Signs (Past 12 Hours) Vital Signs Temp Pulse Pulse Resp BP Pulse Ox O2 Del Method 09/16/22 15:36 79 09/16/22 10:46 36.5 C 90 18 100/63 97 Room Air 09/16/22 08:00 36.8 C 85 16 101/65 95 Room Air 09/16/22 07:39 84
[2022-09-16] MEDS: POLYETHYLENE (MIRALAX) 17 GM PACK PO SCH (17:23)
[2022-09-16] MEDS: DOCUSATE SODIUM 100 MG CAP PO SCH ×2 (17:24→21:11)
[2022-09-16 22:12] LABS: Partial Thromboplastin Ratio 1.1; Partial Thromboplastin Time 29.4 Seconds (21.0-31.0)
[2022-09-16] MEDS: PEPTAMEN 1.5 CAL 1,000 ML BAG JT SCH (22:45)
--- NOTE | 2022-09-17 00:15 | Ultrasound Report ---
ULTRASOUND LEFT LOWER EXTREMITY VENOUS CLINICAL HISTORY: Left calf pain. COMPARISON STUDY: Bilateral lower extremity venous ultrasound dated 04/21/2020. TECHNIQUE: Real-time, grayscale, and color Doppler sonography of the deep veins of the left lower ext remity was performed from the inguinal crease to the calf. Compression and augmentation were utilized . FINDINGS: There is no sonographic evidence of deep venous thrombosis identified in the left lower ext remity. The common femoral, superficial femoral, and popliteal veins are patent and normally compress ible. The greater saphenous vein and the profunda femoris vein at the junction with the common femora l vein are clear. The visualized calf veins are patent. Soft tissue edema is noted in the calf. IMPRESSION: There is no sonographic evidence of deep venous thrombosis identified in the left lower e xtremity. ACT 112: Negative or not required by law. Electronically signed by: Jason Bergeron M.D. 09/17/2022 12:14 AM
--- NOTE | 2022-09-17 00:22 | XRay Report ---
SINGLE VIEW CHEST CLINICAL HISTORY: Dyspnea FINDINGS: An AP, portable, upright chest radiograph is compared to study dated 09/14/2022. A 2-lead c ardiac pacemaker is unchanged in position. The heart is mildly enlarged. The pulmonary vasculature is noncongested. The lungs and pleural spaces are clear noting minimal bibasilar scarring/atelectasis. No pneumothorax is seen. The skeletal structures are osteopenic. The bony thorax is grossly intact. C holecystectomy clips are noted in the right upper quadrant. IMPRESSION: 1. Cardiomegaly and cardiac pacemaker without radiographic evidence of congestive failure. 2. No airspace consolidation or pleural effusion is identified. ACT 112: Negative or not required by law. Electronically signed by: Jason Bergeron M.D. 09/17/2022 12:21 AM
[2022-09-17] MEDS: POLYETHYLENE (MIRALAX) 17 GM PACK PO SCH (08:21)
[2022-09-17] MEDS: DOCUSATE SODIUM 100 MG CAP PO SCH ×2 (08:27→21:35)
[2022-09-17 08:36] LABS: Hemoglobin 10.5 g/dl (12.0-16.0); Mean Corpuscular Hemoglobin 32.5 pg (25.0-34.0); Mean Corpuscular Hgb Conc 32.8 g/dL (32.0-36.0); Mean Corpuscular Volume 99.1 fL (80.0-100.0); Mean Platelet Volume 9.5 fL (9.4-12.3); Platelet Count 588 K/uL (130-400); RDW Coefficient of Variation 16.4 % (11.5-14.5); RDW Standard Deviation 58.9 fL (36.4-46.3); Red Blood Count 3.23 M/uL (3.93-5.22); White Blood Count 7.94 K/ul (4.8-10.8)
[2022-09-17] MEDS: MAGNESIUM OXIDE 400 MG TAB PO SCH (08:42)
[2022-09-17] MEDS: CHOLECALCIFEROL 1,000 UNITS 25 MCG TAB PO SCH (08:42)
[2022-09-17] MEDS: FERROUS SULFATE 325 MG TAB PO SCH ×2 (08:42→21:35)
[2022-09-17 08:43] LABS: INR 1.2 (0.9-1.1); Prothrombin Time 12.6 Seconds (9.0-12.0)
[2022-09-17] MEDS: FLUTICASONE/VILANTEROL 100/25MCG 14 PUFFS/INHALER INH SCH (08:43)
[2022-09-17] MEDS: PANTOprazole 40 MG TAB PO SCH (08:44)
[2022-09-17] MEDS: GABAPENTIN 400 MG CAP PO SCH ×3 (08:44→21:35)
[2022-09-17] MEDS: SERTRALINE HCL 50 MG TABLET PO SCH (08:45)
[2022-09-17] MEDS: POTASSIUM CHLORIDE CRTAB 20 MEQ TABCR PO SCH ×2 (08:48→21:34)
[2022-09-17] MEDS: FUROSEMIDE 40 MG/4 ML VIAL IV SCH ×2 (08:49→21:32)
[2022-09-17] MEDS: ENOXAPARIN INJ 60 MG/0.6 ML SYR SQ SCH ×2 (08:51→21:32)
[2022-09-17] MEDS: NEOMYCIN/POLYMYX/BACITR OINT 15 GM TUBE EXT SCH ×3 (08:51→21:36)
[2022-09-17 08:58] LABS: BUN Creatinine Ratio 55.1 (10-20); Calcium 7.9 mg/dl (8.5-10.1); Est GFR (African American) 76.1 ml/min; Est GFR (Non-African American) 65.7 ml/min
[2022-09-17] MEDS ORDERED: hydrOXYzine HCl 25 MG TAB PO STA (10:51)
[2022-09-17] MEDS: [UNRECOGNIZED DRUG - REMARK] SCH (10:58)
--- NOTE | 2022-09-17 11:39 | Electrocardiogram Report ---
Test Reason : Blood Pressure : / mmHG Vent. Rate : 083 BPM Atrial Rate : 085 BPM P-R Int : 000 ms QRS Dur : 088 ms QT Int : 340 ms P-R-T Axes : 000 -39 043 degrees QTc Int : 399 ms Atrial fibrillation with occasional ventricular-paced complexes Left axis deviation Abnormal ECG When compared with ECG of 13-SEP-2022 14:29, Vent. rate has decreased BY 5 BPM Confirmed by Lee Lei ([id number]) on 09/17/2022 11:39:05 AM Referred By: REFERRED SELF Confirmed By:Sai Lei
--- NOTE | 2022-09-17 12:13 | Cardiology Progress Note ---
Date of Service September 17, 2022 Assessment & Plan (1) Acute on chronic diastolic (congestive) heart failure: (2) Permanent atrial fibrillation: (3) Tricuspid regurgitation: (4) Cardiac pacemaker in situ: (5) Anemia: (6) Urinary tract infection due to Proteus: Plan Continue IV diuresis with furosemide. Monitor daily weight, fluid balance, GFR, and electrolytes. Recommend addition of compression stockings once cellulitis has resolved. INR remains subtherapeutic. Increased dose to 5 mg. Repeat INR in a.m. Continue Lovenox bridge. Hemoglobin improved status post transfusion of 2 units packed red blood cells. No signs/symptoms of ongoing GI blood loss. Continue antibiotics as per internal medicine for coverage of UTI, wound infection, and cellulitis. Wound care consult regarding J-tube drainage site infection. Surgery input appreciated. Admission and Anticipated Discharge Date Admission Date: September 15, 2022 Subjective Patient seen examined the bedside. No changes overnight. No surgical intervention recommended at this time. Edema improving. INR remains subtherapeutic. Telemetry reveals atrial fibrillation in the 80s. Review of Systems Review of Systems: All systems reviewed & are unremarkable except as noted in Subjective Physical Exam Constitutional: + ill appearing and + thin Respiratory: no respiratory distress, no labored breathing and no retractions Auscultation: + diminished lung sounds (Bases) and + rales (Scant Rales at bases bilateral); no rhonchi and no wheezes Cardiovascular: Rate/Rhythm: + irregularly irregular Heart Sounds: normal S1 and normal S2; no murmur Vessels: radial pulses present; no JVD and no carotid bruit Extremities: + edema (1+ bilateral pretibial edema, mild left lower extremity erythema) Neurologic: CN's II-XI intact bilaterally and moves all extremities Results & Data ([facility]) Vital Signs (Past 12 Hours) Vital Signs Temp Pulse Pulse Pulse Resp BP BP 09/17/22 07:40 36.4 C L 80 16 100/65 09/17/22 07:15 88 09/17/22 02:59 36.6 C 88 16 104/67 09/17/22 01:16 84 Pulse Ox O2 Del Method 09/17/22 07:40 99 Room Air 09/17/22 07:15 09/17/22 02:59 96 Room Air 09/17/22 01:16
--- NOTE | 2022-09-17 15:11 | Hospitalist Progress Note ---
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 Admitting Chest x-ray did not show any significant pulmonary edema but had bilateral leg edema Cardiology evaluation-appreciate input and recommendation, managing diuresis We will continue current dose of intravenous Lasix Pt reports improving breathing. On Room Air. Probable left lower leg cellulitis J-tube site seems to be infected with some drains Ancef 09/14 to zosyn 09/16; Surgical consult. ID consult. Appreciate surgery eval, d/w ID 09/16, recs to monitor off atb, Continue local wound care, Wound care consulted. LLE US dopper - no dvt. Tachy-corin syndrome: Afib Plan: History of atrial fibrillation with controlled rate now and h/o tachybradycardia syndrome Status post pacemaker placement SOB (shortness of breath): Shortness of breath with minimal exertion and also orthopnea and PND at presentation. Complicated by severe tricuspid regurgitation See above. Anemia: Plan: Reported to have anemia EGD that was done in June of this year remained unremarkable Will get fecal occult blood test Hb 7.5 on 09/15, given 1 unit prbc, f/u Hb daily and as needed. Hb above 9. (6) Subtherapeutic international normalized ratio (INR): Plan: Has been on Coumadin but INR remains subtherapeutic c/w Coumadin and continue with subcu Lovenox INR daily and keep INR between 2-3. Extra dose of warfarin 09/16 and 09/17. (7) Malnutrition following gastrointestinal surgery: Plan: History of COVID pneumonia and status post PEG tube placement for malnutrition And also history of gastrointestinal surgery She has been able to eat orally and also takes PEG tube feeding nightly Will ask nutritional assessment while in the hospital Start oral food DVT prophylaxis: Subcu Lovenox and Coumadin CODE STATUS: Full Dispo: likely in next 2 days, monitor off atb, await INR trend towards goal, will need coumadin f/u upon DC. Wound care f/u, pcp f/u and cardio f/u on dc. Admission and Anticipated Discharge Date Admission Date: September 15, 2022 Subjective Patient seen and examined at bedside as a follow-up of acute on chronic diastoli c heart failure, LLE cellulitis, likely G-tube site cellulitis. Patient was lying in bed, on room air, NAD, reports no new acute event overnight, has good BM per RN, reports feeling better today, reports eating okay, reports improved shortness of breath and reports improvement in some belly pain after BM. Denies other review of symptoms. Physical Exam Physical Exam: GENERAL: Alert and oriented x3. NAD, on RA. appears malnourished and weak/ill and frail. HEENT: No pallor, no icterus. Pupils equal, round and reactive to light. Oral mucosa moist. NECK: No JVD, no neck masses. HEART: S1 and S2 heard. irregular rate and rhythm. + murmur, no gallop. RESPIRATORY SYSTEM: Normal AP diameter. No accessory muscle use. No wheezing, b/b crackles. ABDOMEN: Soft, bowel sounds present, +tender at peg tube site, no distention. PEG tube entry site with erythema. RLQ abd wound w/ erythema, appears c hronic/scabs. CENTRAL NERVOUS SYSTEM: No facial droop. Speech is clear. Obeys simple commands. Moves extremities. EXTREMITIES: No edema, LLE erythema stable/slight improvement. no warmth difference appreciated b/l legs. Results & Data Results & Data ([facility]) Vital Signs (Past 12 Hours) Vital Signs Temp Pulse Pulse Resp BP BP Pulse Ox 09/17/22 12:30 36.7 C 87 16 111/72 97 09/17/22 07:40 36.4 C L 80 16 100/65 99 09/17/22 07:15 88 O2 Del Method 09/17/22 12:30 Room Air 09/17/22 07:40 Room Air 09/17/22 07:15
[2022-09-17] MEDS ORDERED: WARFARIN SOD 2.5 MG TAB PO ONE (16:00)
[2022-09-17] MEDS: DIGOXIN 0.125 MG TAB PO SCH (16:27)
[2022-09-17] MEDS: WARFARIN SOD 2.5 MG TAB PO SCH (16:28)
[2022-09-17] MEDS ORDERED: diphenhydrAMINE HCL 25 MG/10 ML UDC PO ONE (19:00)
[2022-09-17] MEDS: PEPTAMEN 1.5 CAL 1,000 ML BAG JT SCH (19:55)
[2022-09-17] MEDS: MONTELUKAST SODIUM 10 MG TABLET PO SCH (21:32)
[2022-09-17] MEDS: NYSTATIN CR 15 GM TUBE EXT SCH (21:36)
[2022-09-18 06:27] LABS: Hematocrit (blood only) 31.9 % (34.1-44.9); Hemoglobin 10.5 g/dl (12.0-16.0); Mean Corpuscular Hemoglobin 32.2 pg (25.0-34.0); Mean Corpuscular Hgb Conc 32.9 g/dL (32.0-36.0); Mean Corpuscular Volume 97.9 fL (80.0-100.0); Mean Platelet Volume 9.4 fL (9.4-12.3); Platelet Count 593 K/uL (130-400); RDW Coefficient of Variation 16.6 % (11.5-14.5); RDW Standard Deviation 58.2 fL (36.4-46.3); Red Blood Count 3.26 M/uL (3.93-5.22); White Blood Count 7.86 K/ul (4.8-10.8)
[2022-09-18 06:50] LABS: BUN Creatinine Ratio 56.1 (10-20); Creatinine Clr Calc Pharmacy 41.2 ml/min; Est GFR (Non-African American) 72.5 ml/min; Potassium 4.2 mmol/L (3.5-5.1)
[2022-09-18 06:51] LABS: INR 1.2 (0.9-1.1)
[2022-09-18] MEDS ORDERED: WARFARIN SOD 2.5 MG TAB PO ONE (08:14)
[2022-09-18] MEDS: [UNRECOGNIZED DRUG - REMARK] SCH (08:28)
[2022-09-18] MEDS: GABAPENTIN 400 MG CAP PO SCH ×3 (08:31→20:53)
[2022-09-18] MEDS: PANTOprazole 40 MG TAB PO SCH (08:31)
[2022-09-18] MEDS: FERROUS SULFATE 325 MG TAB PO SCH ×2 (08:31→20:52)
[2022-09-18] MEDS: CHOLECALCIFEROL 1,000 UNITS 25 MCG TAB PO SCH (08:31)
[2022-09-18] MEDS: SERTRALINE HCL 50 MG TABLET PO SCH (08:32)
[2022-09-18] MEDS: ENOXAPARIN INJ 60 MG/0.6 ML SYR SQ SCH ×2 (08:32→20:50)
[2022-09-18] MEDS: MAGNESIUM OXIDE 400 MG TAB PO SCH (08:32)
[2022-09-18] MEDS: NEOMYCIN/POLYMYX/BACITR OINT 15 GM TUBE EXT SCH ×3 (08:34→20:53)
[2022-09-18] MEDS: POLYETHYLENE (MIRALAX) 17 GM PACK PO SCH (08:34)
[2022-09-18] MEDS: DOCUSATE SODIUM 100 MG CAP PO SCH ×2 (08:34→20:50)
[2022-09-18] MEDS: FLUTICASONE/VILANTEROL 100/25MCG 14 PUFFS/INHALER INH SCH (08:34)
[2022-09-18] MEDS: NYSTATIN CR 15 GM TUBE EXT SCH ×2 (08:34→20:52)
[2022-09-18] MEDS: FUROSEMIDE 40 MG/4 ML VIAL IV SCH (08:45)
[2022-09-18] MEDS: POTASSIUM CHLORIDE CRTAB 20 MEQ TABCR PO SCH ×2 (08:45→20:59)
[2022-09-18] MEDS ORDERED: diphenhydrAMINE HCL 25 MG/10 ML UDC PO PRN (10:07)
--- NOTE | 2022-09-18 13:36 | Cardiology Progress Note ---
Date of Service September 18, 2022 Assessment & Plan (1) Acute on chronic diastolic (congestive) heart failure: (2) Permanent atrial fibrillation: (3) Tricuspid regurgitation: (4) Cardiac pacemaker in situ: (5) Anemia: (6) Urinary tract infection due to Proteus: Plan Current exam without signs of overt volume overload. We will discontinue IV furosemide after doses today with plans to transition to oral regimen in a.m. Add spironolactone 12.5 mg p.o. daily to regimen Admission and Anticipated Discharge Date Admission Date: September 15, 2022 Subjective Patient was seen and examined, chart, medications, telemetry reviewed. Patient denies any acute complaints this morning. No dizziness or lightheadedness. No bleeding difficulties Respiratory status stable slightly improved after transfusion Review of Systems Review of Systems: All systems reviewed & are unremarkable except as noted in Subjective Physical Exam Physical Exam: General: No acute distress. A+Ox3. + Tremor HEENT: Normocephalic. Atraumatic. Conjunctiva and sclera clear. NECK: No carotid bruits. + JVD. Carotid upstrokes are brisk. Heart: Tachycardic rate, irregular rhythm. S1 and S2 noted without murmur, rubs, gallops. Lungs: Diminished lung sounds. Rhonchi in right lung base. Bibasilar crackles. No wheezing. Abdomen: Normal bowel sounds. Soft. Nontender. No masses or organomegaly. Extremities: +2 BLLE pitting edema to thighs. Bilateral varicose veins. Pulses: radial=2/4, posterior tibial=2/4, dorsalis pedis = 2/4. NEURO: No focal deficits. PSYCH: Normal. Constitutional: + ill appearing and + thin; no acute distress ENMT: external ear and nose normal, oropharynx normal Neck: trachea midline, no thyromegaly Respiratory: no respiratory distress, no labored breathing and no retractions Auscultation: + diminished lung sounds (But predominantly clear) and + rales (Scant Rales at bases bilateral); no rhonchi and no wheezes Cardiovascular: Rate/Rhythm: + irregularly irregular Heart Sounds: normal S1 and normal S2; no murmur Vessels: radial pulses present; no JVD and no carotid bruit Extremities: + edema (1+ bilateral pretibial edema, mild left lower extremity erythema) Neurologic: CN's II-XI intact bilaterally and moves all extremities Results & Data ([facility]) Vital Signs (Past 12 Hours) Vital Signs Temp Pulse Pulse Resp BP Pulse Ox O2 Del Method 09/18/22 11:12 36.6 C 87 17 102/67 96 Room Air 09/18/22 08:00 89 09/18/22 07:55 36.6 C 90 17 124/83 98 Room Air 09/18/22 04:53 36.7 C 91 H 16 92/53 L 96 Room Air Laboratory Results Laboratory Results - last 24 hr 09/18/22 09/18/22 09/18/22 05:49 05:49 05:49 WBC 7.86 RBC 3.26 L Hgb 10.5 L Hct 31.9 L MCV 97.9 MCH 32.2 MCHC 32.9 RDW Std Deviation 58.2 H RDW Coeff of Saman 16.6 H Plt Count 593 H MPV 9.4 PT 13.0 H INR 1.2 H Sodium 143 Potassium 4.2 Chloride 109 H Carbon Dioxide 30 Anion Gap 4 BUN 46 H Creatinine 0.82 Est Cr Clr Drug Dosing 41.2 Est GFR ( Amer) 84.0 Est GFR (Non-Af Amer) 72.5 BUN/Creatinine Ratio 56.1 H Glucose 101 H Calcium 8.0 L
--- NOTE | 2022-09-18 14:04 | Hospitalist Progress Note ---
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 Admitting Chest x-ray did not show any significant pulmonary edema but had bilateral leg edema Cardiology evaluation-appreciate input and recommendation, managing diuresis Pt reports improving breathing. On Room Air. Monitor renal fxn. Probable left lower leg cellulitis J-tube site seems to be infected with some drains Ancef 09/14 to zosyn 09/16; Surgical consult. ID consult. Appreciate surgery eval, d/w ID 09/16, recs to monitor off atb, Continue local wound care, Wound care consulted. LLE US dopper - no dvt. Pt afebrile, wbc wnl, pt feels better, LLE erythema resolving. Tachy-corin syndrome: Afib Plan: History of atrial fibrillation with controlled rate now and h/o tachybradycardia syndrome Status post pacemaker placement SOB (shortness of breath): Shortness of breath with minimal exertion and also orthopnea and PND at presentation. Complicated by severe tricuspid regurgitation See above. Anemia: Plan: Reported to have anemia EGD that was done in June of this year remained unremarkable Will get fecal occult blood test Hb 7.5 on 09/15, given 1 unit prbc, f/u Hb daily and as needed. Hb above 9. (6) Subtherapeutic international normalized ratio (INR): Plan: Has been on Coumadin but INR remains subtherapeutic c/w Coumadin and continue with subcu Lovenox INR daily and keep INR between 2-3. Extra dose of warfarin 09/16 and 09/17. Increase warfarin dose to 5 mg daily and 2.5 mg in addition today. (7) Malnutrition following gastrointestinal surgery: Plan: History of COVID pneumonia and status post PEG tube placement for malnutrition And also history of gastrointestinal surgery She has been able to eat orally and also takes PEG tube feeding nightly Will ask nutritional assessment while in the hospital Start oral food DVT prophylaxis: Subcu Lovenox and Coumadin CODE STATUS: Full Dispo: likely in next 1-2 days, monitor off atb, await INR trend towards goal, will need coumadin f/u upon DC. Wound care f/u, pcp f/u and cardio f/u on dc. Admission and Anticipated Discharge Date Admission Date: September 15, 2022 Subjective Patient seen and examined at bedside as a follow-up of acute on chronic diastolic heart failure, LLE cellulitis, likely G-tube site cellulitis. Patient was lying in bed, on room air, NAD, reports no new acute event overnight, has good BM per pt, reports feeling better, reports eating okay, reports improved shortness of breath and reports improvement in some belly pain after BM. Denies other review of symptoms. Physical Exam Physical Exam: GENERAL: Alert and oriented x3. NAD, on RA. appears malnourished and weak/ill and frail. HEENT: No pallor, no icterus. Pupils equal, round and reactive to light. Oral mucosa moist. NECK: No JVD, no neck masses. HEART: S1 and S2 heard. irregular rate and rhythm. + murmur, no gallop. RESPIRATORY SYSTEM: Normal AP diameter. No accessory muscle use. No wheezing, b/b crackles. ABDOMEN: Soft, bowel sounds present, non tender, no distention. PEG tube entry site with erythema. RLQ abd wound w/ erythema, appears chronic/scabs. CENTRAL NERVOUS SYSTEM: No facial droop. Speech is clear. Obeys simple commands. Moves extremities. EXTREMITIES: No edema, LLE erythema stable/slight improvement. no warmth difference appreciated b/l legs. Results & Data Results & Data ([facility]) Vital Signs (Past 12 Hours) Vital Signs Temp Pulse Pulse Resp BP Pulse Ox O2 Del Method 09/18/22 11:12 36.6 C 87 17 102/67 96 Room Air 09/18/22 08:00 89 09/18/22 07:55 36.6 C 90 17 124/83 98 Room Air 09/18/22 04:53 36.7 C 91 H 16 92/53 L 96 Room Air
[2022-09-18] MEDS: DIGOXIN 0.125 MG TAB PO SCH (15:25)
[2022-09-18] MEDS: WARFARIN SOD 5 MG TAB PO SCH (15:25)
[2022-09-18] MEDS: SPIRONOLACTONE 12.5 MG TAB PO SCH (15:26)
[2022-09-18] MEDS: PEPTAMEN 1.5 CAL 1,000 ML BAG JT SCH (20:50)
[2022-09-18] MEDS: MONTELUKAST SODIUM 10 MG TABLET PO SCH (20:51)
[2022-09-19 07:48] LABS: BUN Creatinine Ratio 62.9 (10-20); Calcium 7.9 mg/dl (8.5-10.1); Creatinine Clr Calc Pharmacy 48.3 ml/min; Est GFR (African American) 101.7 ml/min; Est GFR (Non-African American) 87.8 ml/min; Potassium 4.6 mmol/L (3.5-5.1)
[2022-09-19 07:57] LABS: INR 1.3 (0.9-1.1); Prothrombin Time 13.7 Seconds (9.0-12.0)
[2022-09-19] MEDS: SPIRONOLACTONE 12.5 MG TAB PO SCH (08:51)
[2022-09-19] MEDS: FLUTICASONE/VILANTEROL 100/25MCG 14 PUFFS/INHALER INH SCH (08:51)
[2022-09-19] MEDS: CHOLECALCIFEROL 1,000 UNITS 25 MCG TAB PO SCH (08:52)
[2022-09-19] MEDS: SERTRALINE HCL 50 MG TABLET PO SCH (08:52)
[2022-09-19] MEDS: PANTOprazole 40 MG TAB PO SCH (08:52)
[2022-09-19] MEDS: GABAPENTIN 400 MG CAP PO SCH ×2 (08:52→13:16)
[2022-09-19] MEDS: MAGNESIUM OXIDE 400 MG TAB PO SCH (08:53)
[2022-09-19] MEDS: FERROUS SULFATE 325 MG TAB PO SCH (08:53)
[2022-09-19] MEDS: ENOXAPARIN INJ 60 MG/0.6 ML SYR SQ SCH (08:56)
[2022-09-19] MEDS: [UNRECOGNIZED DRUG - REMARK] SCH (08:56)
[2022-09-19] MEDS: DOCUSATE SODIUM 100 MG CAP PO SCH (08:56)
[2022-09-19] MEDS: NEOMYCIN/POLYMYX/BACITR OINT 15 GM TUBE EXT SCH ×2 (08:57→13:17)
[2022-09-19] MEDS: NYSTATIN CR 15 GM TUBE EXT SCH (08:57)
[2022-09-19] MEDS: POLYETHYLENE (MIRALAX) 17 GM PACK PO SCH (08:57)
[2022-09-19] MEDS: POTASSIUM CHLORIDE CRTAB 20 MEQ TABCR PO SCH (09:18)
[2022-09-19] MEDS ORDERED: WARFARIN SOD 3 MG TAB PO ONE (09:41)
--- NOTE | 2022-09-19 11:24 | Cardiology Progress Note ---
Date of Service September 19, 2022 Assessment & Plan (1) Acute on chronic diastolic (congestive) heart failure: (2) Permanent atrial fibrillation: (3) Tricuspid regurgitation: (4) Cardiac pacemaker in situ: (5) Anemia: (6) Urinary tract infection due to Proteus: Plan Current exam without signs of overt volume overload. Ins and outs stable weight without acute change We will resume oral furosemide at 60 mg p.o. daily Continue spironolactone at 12.5 mg p.o. daily Admission and Anticipated Discharge Date Admission Date: September 15, 2022 Subjective Chart medications and telemetry reviewed Results & Data ([facility]) Vital Signs (Past 12 Hours) Vital Signs Temp Pulse Resp BP BP Pulse Ox O2 Del Method 09/19/22 10:34 36.5 C 80 19 112/77 96 Room Air 09/19/22 08:54 36.6 C 84 17 101/67 97 Room Air 09/19/22 02:28 36.6 C 96 H 18 107/65 97 Room Air Laboratory Results Laboratory Results - last 24 hr 09/19/22 09/19/22 06:30 06:30 PT 13.7 H INR 1.3 H Sodium 142 Potassium 4.6 Chloride 108 H Carbon Dioxide 30 Anion Gap 4 BUN 44 H Creatinine 0.70 Est Cr Clr Drug Dosing 48.3 Est GFR ( Amer) 101.7 Est GFR (Non-Af Amer) 87.8 BUN/Creatinine Ratio 62.9 H Glucose 94 Calcium 7.9 L
[2022-09-19] MEDS ORDERED: FUROSEMIDE 20 MG TAB PO SCH (11:30)
--- NOTE | 2022-09-19 13:06 | Discharge Summary ---
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 She was evaluated by outpatient cardiology today and was sent in to emergency room for continued management. Her recent weight gain has not been improving with intravenous Lasix on top of her usual p.o. doses and also there is question about low hemoglobin. She has been complaining of chest tightness and palpitation with orthopnea and PND without any significant chest pain. Denies any fever and or chills. No abdominal pain, nausea and or vomiting. No weakness involving any side in particular. The emergency room she was hemodynamically stable without any significant symptoms and the chest x-ray did not show any pulmonary edema but she was noted to have 2+ edema in the legs bilaterally. She has been on Coumadin but INR remained at 1. She will be given intravenous heparin and will be admitted to telemetry unit for continuation of care. Admission Exam Per Admitting Provider Physical Exam: Lying in bed comfortably Constitutional: well nourished, + ill appearing, average body habitus and + malnourished Eyes: PERRL, conjunctivae normal, anicteric sclerae ENMT: external ear and nose normal, oropharynx normal Neck: trachea midline, no thyromegaly Respiratory: no respiratory distress Auscultation: + diminished lung sounds and + crackles (Minimal bibasilar crackles) Cardiovascular: Rate/Rhythm: regular rate and regular rhythm; not tachycardic Heart Sounds: normal S1, normal S2 and + murmur (2/6 ESM over tricuspid area) Extremities: + edema (2+ edema bilaterally) Gastrointestinal (Abdomen): Inspection/Auscultation: normal bowel sounds; + abdomen abnormal to inspection (J-tube in situ.Right lower quadrant tender spot without any localized lump) Percussion/Palpation: + abdomen tender (Right lower quadrant) and abdomen soft Musculoskeletal: No acute arthritis involving any joint Neurologic: Alert, awake and oriented x3. No focal sensory or no motor deficit appreciated Lymphatic: no cervical or axillary lymphadenopathy Principal Diagnosis Acute on chronic diastolic heart failure Subtherapeutic INR Likely left lower leg cellulitis Chronic wounds of abdomen at RLQ and J-tube site Discharge Exam GENERAL: Alert and oriented x3. NAD, on RA. appears malnourished and weak/ill and frail. HEENT: No pallor, no icterus. Pupils equal, round and reactive to light. Oral mucosa moist. NECK: No JVD, no neck masses. HEART: S1 and S2 heard. irregular rate and rhythm. + murmur, no gallop. RESPIRATORY SYSTEM: Normal AP diameter. No accessory muscle use. No wheezing, b/b crackles. ABDOMEN: Soft, bowel sounds present, non tender, no distention. PEG tube entry site with erythema. RLQ abd wound w/ erythema, appears chronic/scabs. CENTRAL NERVOUS SYSTEM: No facial droop. Speech is clear. Obeys simple commands. Moves extremities. EXTREMITIES: No edema, LLE erythema improved. Discharge Data Allergies Allergy/AdvReac Type Severity Reaction Status Date / Time No Known Allergies Allergy Verified 06/18/22 12:38 Consultations 09/13/22 17:11 ED Decision to Admit Stat 09/14/22 07:25 Consult Cardiology Routine 09/16/22 10:51 Consult Infectious Diseases Routine 09/16/22 11:41 Consult General Surgery Routine Ordered Studies 09/16/22 16:19 US venous doppler LE Routine Hospital Course (1) SOB (shortness of breath): Plan 72 yo F was managed for the following: (1) Acute on chronic diastolic (congestive) heart failure: Plan: Presented with increasing shortness of breath and increasing leg edema for the last 2 weeks 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 Admitting Chest x-ray did not show any significant pulmonary edema but had b ilateral leg edema Cardiology evaluation-appreciate input and recommendation, lasix 60 mg daily and aldactone 12.5 mg daily. Pt reports improving breathing. On Room Air. Monitor renal fxn. Probable left lower leg cellulitis J-tube site seems to be infected with some drains Ancef 09/14 to zosyn 09/16; Surgical consult. ID consult. Appreciate surgery eval, d/w ID 09/16, recs to monitor off atb, Continue local wound care, Wound care consulted. LLE US dopper - no dvt. Pt afebrile, wbc wnl, pt feels better, LLE erythema improved. Pt to follow w/ wound care as OP. Tachy-corin syndrome: Afib Plan: History of atrial fibrillation with controlled rate now and h/o tachybradycardia syndrome Status post pacemaker placement SOB (shortness of breath): Shortness of breath with minimal exertion and also orthopnea and PND at presentation. Complicated by severe tricuspid regurgitation See above. Anemia: Plan: Reported to have anemia EGD that was done in June of this year remained unremarkable Will get fecal occult blood test Hb 7.5 on 09/15, given 1 unit prbc, f/u Hb daily and as needed. Hb above 9. (6) Subtherapeutic international normalized ratio (INR): Plan: Has been on Coumadin but INR remains subtherapeutic c/w Coumadin and continue with subcu Lovenox INR daily and keep INR between 2-3. Extra dose of warfarin 09/16 and 09/17. Increase warfarin dose to 5 mg daily 09/18 and 2.5 mg on 09/18; 3 mg on 09/19 HH to draw INR on Tuesday and further recs from or coumadin clinic regarding warfarin, for now c/w 5 mg daily. Pt made aware. Pt to follow or coumadin clinic for Warfarin dose adjustment. (7) Malnutrition following gastrointestinal surgery: Plan: History of COVID pneumonia and status post PEG tube placement for malnutrition And also history of gastrointestinal surgery She has been able to eat orally and also takes PEG tube feeding nightly Will ask nutritional assessment while in the hospital, appreciate recs. DVT prophylaxis: Subcu Lovenox and Coumadin CODE STATUS: Full Patient being discharged to home with home health with following instruction at the point of discharge: Follow-up with your primary care physician within 1 week time and likely you will need blood test CBC/CMP/magnesium level. Follow-up with wound care clinic for ongoing management of your abdominal wounds. Continue wound care as prior. For your acute on chronic heart failure, your Lasix dose has been increased to 60 mg daily and Aldactone has been added. Follow-up with cardiology in 2 to 4 weeks upon discharge. You will need PT/INR drawn in 2 days upon discharge and close monitoring after PT/INR until your warfarin dosage is stably adjusted. Further recommendation from your home health or Coumadin clinic. Until further recommendation from home health or your Coumadin clinic, which should initiate within 2 to 3 days upon discharge, continue to take 5 mg warfarin [2 tablets of 2.5 mg] as discussed at the bedside. You can use [id number] laxatives as needed for constipation. Follow up with your surgery doctor for OP PEG tube evaluation. Take your medications as prescribed. Home Health Attestation I certify that this patient is under my care and that I, or a physicians as sistant working with me, had a face to-face encounter that meets the home health [id number]-qu-funm encounter requirements with this patient. The encounter with the patient was in whole, or in part, for the following medical condition, which is the primary reason for home health care (list medical condition): CHF I certify that, based on my findings, the following services are medically necessary home health services: My clinical findings support the need for the above services because: PT Assessment for Endurance / Balance / Strength PT Eval for Safety and Mobility PT Eval for Safety, Gait Training, Assistive Devices PT Gait and Balance Training, Strengthening and Safety Skilled Nsg Assessment Further, I certify that my clinical findings support that this patient is homebound (i.e. absences from home require considerable and taxing effort and are for medical reasons or [facility] services or infrequently or of short duration when for other reasons) because: Supportive Aid - Walker Certification for Home Health Services: Based on the above findings, I certify that this patient is confined to the home and needs intermittent care home care, physical therapy and/or speech therapy or continues to need occupational therapy. The patient is under my care, and I have initiated the establishment of the plan of care. This patient will be followed by a physician who will periodically review the plan of care. Total Time Total Time Spent Total Time Spent (In Minutes): 45 Discharge Plan Discharge Items Patient Disposition: Home - Home Health Services Reason For Visit: SOB, LEG EDEMA, CHEST PRESSURE Discharge Diagnosis: Acute on chronic diastolic heart failure Subtherapeutic INR Likely left lower leg cellulitis Chronic wounds of abdomen at RLQ and J-tube site Activity: Resume your previous activity Non-emergency contact: Primary Care Provider Call non-emergency contact if: you have any medication questions, your pain is not controlled and your temperature is above 101 Follow-up/Referrals: Olya Kimble DO [Primary Care Provider] - (Date & Time 09/23/2022 10:40 AM Provider Pharmacist [address] [facility] [address] [facility] Date & Time 09/23/2022 11:00 [facility] Diet: Other - See Diet Comment Diet Comment: Continue your diet and PEG tube feeding as prior. Addtl Attending Provider Instructions: Follow-up with your primary care physician within 1 week time and likely you will need blood test CBC/CMP/magnesium level. Follow-up with wound care clinic for ongoing management of your abdominal wounds. Continue wound care as prior. For your acute on chronic heart failure, your Lasix dose has been increased to 60 mg daily and Aldactone has been added. Follow-up with cardiology in 2 to 4 weeks upon discharge. You will need PT/INR drawn in 2 days upon discharge and close monitoring after PT/INR until your warfarin dosage is stably adjusted. Further recommendation from your home health or Coumadin clinic. Until further recommendation from home health or your Coumadin clinic, which should initiate within 2 to 3 days upon discharge, continue to take 5 mg warfarin [2 tablets of 2.5 mg] as discussed at the bedside. You can use [id number] laxatives as needed for constipation. Follow up with your surgery doctor for OP PEG tube evaluation. Take your medications as prescribed. Pending Studies at Discharge: No Stand-Alone Forms: My [facility], Smoking Cessation Medications and DC Order Prescriptions: New diphenhydramine HCl 12.5 mg tablet,chewable 12.5 mg PO BID PRN (Reason: allergic reaction) Qty: 30 0RF spironolactone 25 mg Tablet 12.5 mg PO DAILY Qty: 15 0RF furosemide 20 mg Tablet 60 mg PO QAM Qty: 90 0RF polyethylene glycol 3350 [Miralax] 17 gram Powder In Packet 17 g PO DAILY Qty: 30 0RF Triple Antibiotic 3.5mg-400 unit- 5,000 unit/gram Ointment 1 applic EXT TID Qty: 14 0RF Rx Instructions: over your j tube site infection/ right lower belly infection. Continued metolazone 2.5 mg tablet 2.5 mg PO UD PRN (Reason: Edema) Rx Instructions: 1 tab po daily as needed for LE edema acetaminophen [Tylenol Extra Strength] 500 mg Tablet 1,000 mg PO Q8H PRN (Reason: pain) Qty: 50 0RF fluticasone propion-salmeterol [Advair Diskus] 250-50 mcg/dose Blister With Device 1 inh INHALATION BID 30 Days Qty: 60 0RF ondansetron HCl 4 mg Tablet 4 mg PO Q12H PRN (Reason: NAUSEA/VOMITING) Qty: 15 0RF warfarin 2.5 mg Tablet See Rx Instructions .ROUTE .COMPLEX Qty: 30 0RF Rx Instructions: 2.5 mg orally; TAKES 2.5 MG ON TUE AND SAT. THEN 1.25 MG ON TUE, , TH, FRI. TAKES AT 1600 DAILY. zafirlukast [Accolate] 20 mg tablet 20 mg PO BID 30 Days Qty: 60 0RF digoxin [Digitek] 125 mcg (0.125 mg) tablet 125 mcg PO QAM 30 Days Qty: 30 0RF albuterol sulfate [Ventolin HFA] 90 mcg/actuation Hfa Aerosol Inhaler 2 puff INHALATION QID PRN (Reason: Shortness Of Breath Or Wheezing) Qty: 8.5 0RF sertraline [Zoloft] 50 mg Tablet 50 mg PO QAM 30 Days Qty: 30 0RF cholecalciferol (vitamin D3) [Vitamin D3] 2,000 unit Capsule 2,000 unit PO QAM 30 Days Qty: 30 0RF Vitron-C 65 mg iron- 125 mg Tablet,Delayed Release (Dr/Ec) 1 tab PO BID 30 Days Qty: 60 0RF omeprazole 40 mg Capsule,Delayed Release(Dr/Ec) 40 mg PO QAM gabapentin 100 mg Tablet 400 mg PO TID methylprednisolone 4 mg tablet 4 mg PO UD PRN (Reason: Weight Gain) Rx Instructions: As directed magnesium 200 mg tablet 200 mg PO QAM potassium chloride 20 mEq tablet,ER particles/crystals 20 meq PO BID Discontinued furosemide 40 mg tablet 40 mg PO QAM Discharge Orders: Discharge Order (Routine); Ordered 09/19/22 Ordered By: Hipolito Lopez Admission Data Admit Date/Time: 09/15/22 10:57 Attending Provider: Hipolito Lopez Admit Provider: Bob Alberts Primary Care Provider: Olya Kimble Other Providers: Bob Alberts ; Tejas Haskins ; Arthur Huynh ; Viki Tuttle ; Jack Ng I. ; Florencio Lea II ; Veronica Evangelista ; Saad Hart ; Jr Sarkar ; Marion Alonso ; Jamey Armas ; [facility]
[2022-09-19] MEDS: WARFARIN SOD 5 MG TAB PO SCH (16:32)
[2022-09-19] MEDS: DIGOXIN 0.125 MG TAB PO SCH (16:32)
--- NOTE | 2022-10-01 10:39 | Coding Query ---
CODING QUERY To promote full compliance with coding requirements relating to patient care, provider participation is requested in all cases of manufacturing engineering manager uncertainty. Please assist us with the question(s) below: Coding Question(s): The Surgery Consultation on 09/16 documents, "Her J-tube seems to be working without issue There is no clinical signs of any abscess at her J-tube site Some barrier cream can be used around the site to help with the excoriation from leakage With regards to her right lower quadrant induration, she does have a small open wound at that site with some eschar present Can start Santyl daily to the wound site There are no appreciable abscesses at either area that would warrant an I&D She can follow-up with her surgeon as an outpatient once she is discharged Surgery will sign off at this time, please call with any questions or concerns (2) Jejunostomy tube site pain:", and there is documentation in the record starting in the 09/14 Progress Note of, "J-tube site seems to be infected with some drains", and upon Discharge Summary of, "J-tube site seems to be infected with some drains". Please specify below, in your clinical opinion, to clarify diagnosis: ( x) Possible Complication(s) of the Jejunostomy tube or site, to include, possible site infection/cellulitis, site pain, and leakage with excoriation at the site. ( ) Possible Complication(s) of the Jejunostomy tube or site, to include, Other: Please Specify ( ) No Complication of the Jejunostomy tube or site and Infection/Cellulitis is Ruled-Out ( ) Other: Please specify and please specify if it is a Complication or not Physician's Response(s): Thank you Saskia Odom Principal Diagnosis: "that condition established after study, to be chiefly responsible for occasioning the admission of the patient to the hospital for care." Co-Existing Principal Diagnosis: "when two or more diagnoses equally meet the criteria for principal diagnosis as determined by the circumstances of admission, diagnostic work up, and/or therapy provided, and the Alphabetic Index, Tabular List, or another coding guideline does not provide sequencing direction, any one of the diagnoses may be sequenced first." "When the physician has documented what appears to be a current diagnosis in the body of the record, but has not included the diagnosis in the final diagnostic statement, the physician should be asked whether the diagnosis should be added." (Source [facility]oding [facility] 2 QTR90. p3-4) ARAM
--- NOTE | 2022-10-01 10:44 | Coding Query ---
To promote full compliance with coding requirements relating to patient care, provider participation is requested in all cases of certified coder uncertainty. Please assist us with the question(s) below: Coding Question(s): The diagnosis below was documented in the 09/16 to 09/19 Cardiology Progress Notes, then subsequently fell off all further documentation with no mention by attending or on the Discharge Summary. Please indicate if it is still a possible diagnosis or ruled out. Physician's Response(s): Urinary tract infection due to Proteus: ( ) Diagnosed and POA ( ) Diagnosed and not POA ( ) Ruled out (x ) Other (please specify) Not present MTDD
== END 2022-09-19 18:25 | disposition home health service (06) | DRG 291 ==
LOC: 2S 14:06 → ED 14:06 → SUATTDRO 17:39 → 2S 22:00

== ENCOUNTER 2023-01-11 10:27 | Inpatient (IN) ==
[2023-01-11] MEDS ORDERED: methylPREDNISolone 125 MG/2 ML VIAL IV STA (10:39)
[2023-01-11] MEDS ORDERED: ALBUT/IPRATROP 3MG/0.5MG NEB 3 ML VIAL NEB STA (10:40)
--- NOTE | 2023-01-11 10:46 | Emergency Department Note ---
Impression & Plan Acute dyspnea, Anemia, Leukocytosis, Hand pain, right, Hypocalcemia, Elevated troponin ED Provider Note NAME: ETHEL SEWELL AGE: 72 SEX: F : 1950 ARRIVES VIA: Ambulance INFORMANT: Patient ED PROVIDER(S): Remigio Chawla DO CHIEF COMPLAINT: shortness of breath HPI: Patient is a 72-year-old female with a past medical history of asthma, COPD who presents to [facility] and was found to be significantly short of breath. Was placed on nonrebreather and transferred here from the PCPs office. Does have a history of CHF as well. Denies any headache or change in vision. Admits to significant shortness of breath. Does have some swelling of the right upper extremity. No belly pain, nausea, vomiting, or diarrhea. Does have some jaw pain. No dysuria, urgency, or frequency. No other exacerbating or remitting factors. Patient notes that she has had weakness in her right hand for quite some time. This is not new. PAST MEDICAL HISTORY:See Below PAST SURGICAL HISTORY:See Below FAMILY HISTORY:See Below SOCIAL HISTORY:See Below HOME MEDICATIONS:See Below ALLERGIES:See Below VITALS:See Below PHYSICAL EXAMINATION: GENERAL: Sitting up in bed, alert, short of breath with conversation, pursed lip breathing EYE EXAM: normal conjunctiva. OROPHARYNX: mucous membranes are moist NECK: supple, no nuchal rigidity, no adenopathy, non-tender LUNGS: Clear to auscultation. Normal chest wall mechanics HEART: no murmurs, S1 normal and S2 normal ABDOMEN: abdomen soft, non-tender, normo-active bowel sounds, no masses, no rebound or guarding. G-tube in mid abdomen UPPER EXTREMITIES: Swelling of the right hand on the dorsal surface. Minimal tenderness on palpation. LOWER EXTREMITIES: No pitting edema. NEURO EXAM: Normal sensorium, cranial nerves II-XII grossly intact, normal speech, no gross weakness of arms, no gross weakness of legs. MEDICAL DECISION MAKING: Patient is a 72-year-old female who presents ER with above-stated complaint. IV was established blood work was obtained. External records reviewed. Labs show mild leukocytosis of 13,000. No significant anemia with a hemoglobin of 10.9. INR was therapeutic at 2.1. PE was considered with the shortness of breath however with therapeutic INR did not explore any further. BMP was unremarkable with the exception of significant hypokalemia at 5.3. This was repleted IV with 2 g of calcium gluconate. Troponin was mildly elevated at 21. BNP elevated at 200. Lipase was negative. Flu COVID and RSV was negative. Chest x-ray shows enlarged heart. No pneumonia. Venous Doppler of the left lower extremity was negative. X-rays of the hand showed no acute fracture per radiology. Patient was placed on BiPAP upon arrival and respiratory rate did improve. She felt significantly better. She was given neb treatment as well as steroids. She had faint wheezing on exam initially. Patient was given morphine and Zofran for the hand pain. Triage Nursing notes reviewed. Limited review of prior medical records performed Vital Signs: reviewed and remarkable for no significant abnormalities Differential diagnosis: Differential diagnoses includes but is not limited to pneumonia, bronchitis, COPD/Asthma exacerbation, pneumothorax, pulmonary embolism, congestive heart failure, acute coronary syndrome ER treatment provided: See below Diagnostics interpreted by me include EKG and cardiac monitoring as listed below: -Cardiac Monitoring: An order was placed for continuous cardiac monitoring. The monitor shows a rate of 88 with sinus rhythm. -ECG: A-fib rate of 101 Left axis No PVCs QTc 391 -Laboratory studies:Interpreted by me as stated above in MDM and shown below. Imaging studies: Xrays: As interpreted by me: Chest x-ray shows no pneumonia per my read X-ray of the hand shows no acute fracture Venous Doppler shows no DVT in the right upper extremity CTs show: none Consultation(s): Discussed with the [facility]ist for further evaluation management and treatment Procedures:none Critical Care: I have personally spent 32 minutes of critical care time in the direct management of this patient. This includes bedside care, interpretation of diagnostic studies, and testing, discussion with consultants, patient, and family members, and other required patient management activities. This 32 min utes is in excess of all separately billable procedures. Past Med/Surg History Medical History (Updated 01/11/23 @ 14:15 by Remigio Chawla DO) A-fib S/P DANAE guided DCCV 10/2018. Reverted back to afib 03/2020. External DCCV 04/23/20. 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 Haskins History of cholecystectomy History of esophagogastroduodenoscopy (EGD) History of transesophageal echocardiography (DANAE) Pacemaker [employer] [place]---placed 11/03/[address] Ivey S/P appendectomy S/P small bowel resection Family History Other Cancer Hypertension Lung disease No family history of adverse response to anesthesia Social History Smoking Status: Never smoker Second Hand Exposure: Yes (); Hx Alcohol Use: No Hx Substance Use: No Preferred Language: Bel[place]an Communication Ability: Effective Visual Impairment: Limited Hearing Ability: Hard of Hearing Campus Chaplain Required: No Beliefs That Will Affect Care: None marital status: Current Living Situation: Spouse Current Living Situation Comment: Home with current occupational status: employed current occupation: [employer] but on medical leave Feels Safe at Home: Yes Diet Comment: And fluid restriction caffeine: No Assistive Devices: Cane and Walker Allergies Allergies Allergy/AdvReac Type Severity Reaction Status Date / Time No Known Allergies Allergy Verified 01/04/23 09:02 Home Meds Home Medications Medication Instructions Recorded Confirmed potassium chloride 20 mEq 20 meq PO BID 02/22/22 01/11/23 tablet,extended release(part/cryst) gabapentin 100 mg tablet 400 mg PO TID 06/08/22 01/11/23 magnesium 200 mg tablet 200 mg PO QAM 06/08/22 01/11/23 omeprazole 40 mg capsule,delayed 40 mg PO QAM 06/08/22 01/11/23 release Previous Rx's Medication Instructions Recorded acetaminophen 500 mg tablet 1,000 mg PO Q8H PRN pain #50 tabs 01/30/22 (Tylenol Extra Strength) albuterol sulfate 90 mcg/actuation 2 puff inhalation QID PRN 01/30/22 aerosol inhaler (Ventolin HFA) Shortness Of Breath Or Wheezing #8.5 grams cholecalciferol (vitamin D3) 50 2,000 unit PO QAM 30 days #30 caps 01/30/22 mcg (2,000 unit) capsule (Vitamin D3) digoxin 125 mcg (0.125 mg) tablet 125 mcg PO QAM 30 days #30 tabs 01/30/22 (Digitek) fluticasone 250 mcg-salmeterol 50 1 inh inhalation BID 30 days #60 ea 01/30/22 mcg/dose blistr powdr for inhalation (Advair Diskus) iron,carbonyl 65 mg-vitamin C 125 1 tab PO BID 30 days #60 tabs 01/30/22 mg tablet,delayed release (Vitron-C) ondansetron HCl 4 mg tablet 4 mg PO Q12H PRN NAUSEA/VOMITING 01/30/22 #15 tabs sertraline 50 mg tablet (Zoloft) 50 mg PO QAM 30 days #30 tabs 01/30/22 warfarin 2.5 mg tablet See Rx Instructions .Route 01/30/22 .COMPLEX #30 tabs zafirlukast 20 mg tablet (Accolate) 20 mg PO BID 30 days #60 tabs 01/30/22 diphenhydramine HCl 12.5 mg 12.5 mg PO BID PRN allergic 09/19/22 chewable tablet reaction #30 tabs polyethylene glycol 3350 17 gram 17 g PO DAILY #30 ea 09/19/22 oral powder packet (Miralax) Results & Data (ED) Vital Signs Vital Signs - 24 hr 01/11/23 10:46 01/11/23 10:46 01/11/23 10:52 Temperature 37.0 C Temperature Source Oral Pulse Rate 93 H Pulse Rate [Apical] Pulse Rhythm Irregular Pulse Rhythm [Apical] Pulse Strength [Apical] Respiratory Rate 30 H Respiratory Effort / Characteristics Short of Breath Short of Breath Respiratory Depth Respiratory Pattern Regular Blood Pressure 143/120 H Blood Pressure [Left Arm] Blood Pressure Mean 127 Blood Pressure Mean [Left Arm] Blood Pressure Position Semi-fowlers Pulse Oximetry 91 97 Oxygen Delivery Method Room Air Nasal Cannula Nasal Cannula Oxygen Flow Rate 4 4 Fraction of Inspired Oxygen Sepsis Recent Fever Within 48 Hours No Sepsis New/Unexplained Change in Mental Status No Sepsis Action Taken by Nursing No Action Required 01/11/23 11:02 01/11/23 11:02 01/11/23 11:13 Temperature Temperature Source Pulse Rate 96 H Pulse Rate [Apical] 95 H Pulse Rhythm Pulse Rhythm [Apical] Pulse Strength [Apical] Respiratory Rate 28 H 30 H Respiratory Effort / Characteristics Spontaneous Spontaneous Respiratory Depth Respiratory Pattern Tachypnea Blood Pressure Blood Pressure [Left Arm] Blood Pressure Mean Blood Pressure Mean [Left Arm] Blood Pressure Position Pulse Oximetry 99 94 Oxygen Delivery Method BiPAP BiPAP Oxygen Flow Rate Fraction of Inspired Oxygen 30 30 Sepsis Recent Fever Within 48 Hours Sepsis New/Unexplained Change in Mental Status Sepsis Action Taken by Nursing 01/11/23 12:00 01/11/23 12:05 01/11/23 13:00 Temperature Temperature Source Pulse Rate 93 H Pulse Rate [Apical] 104 H 87 Pulse Rhythm Pulse Rhythm [Apical] Regular Pulse Strength [Apical] Normal Normal Respiratory Rate 23 15 Respiratory Effort / Characteristics Non-Labored Non-Labored Respiratory Depth Normal Normal Respiratory Pattern Regular Regular Blood Pressure Blood Pressure [Left Arm] 160/96 H 128/70 Blood Pressure Mean Blood Pressure Mean [Left Arm] 117 89 Blood Pressure Position Pulse Oximetry 99 95 Oxygen Delivery Method BiPAP Oxygen Flow Rate Fraction of Inspired Oxygen Sepsis Recent Fever Within 48 Hours Sepsis New/Unexplained Change in Mental Status Sepsis Action Taken by Nursing Laboratory Data 01/11/23 10:37 01/11/23 10:37 Lab Results 01/11/23 01/11/23 01/11/23 Range/Units 10:37 10:37 10:37 WBC 13.22 H (4.8-10.8) K/ul RBC 3.76 L (4.20-5.40) M/uL Hgb 10.9 L (12.0-16.0) g/dl Hct 33.5 L (37.0-47.0) % MCV 89.1 (80.0-100.0) fL MCH 29.0 (25.0-34.0) pg MCHC 32.5 (32.0-36.0) g/dL RDW Std Deviation 49.2 H (36.4-46.3) fL RDW Coeff of Saman 15.1 H (11.5-14.5) % Plt Count 340 (130-400) K/uL MPV 9.3 L (9.4-12.4) fL Immature Gran % (Auto) 0.4 % Neut % (Auto) 79.6 % Lymph % (Auto) 9.3 % [place] % (Auto) 7.0 % Eos % (Auto) 3.4 % Baso % (Auto) 0.3 % Neut # (Auto) 10.53 H (1.40-6.50) K/uL Lymph # (Auto) 1.23 (1.2-3.4) K/uL [place] # (Auto) 0.92 H (0.11-0.59) K/uL Eos # (Auto) 0.45 (0-0.50) K/uL Baso # (Auto) 0.04 (0-0.2) K/uL Immature Gran # (Auto) 0.05 (0.01-0.20) K/uL PT 21.2 H (9.0-12.0) Seconds INR 2.1 H (0.9-1.1) Sodium 136 (136-145) mmol/L Potassium 3.9 (3.5-5.1) mmol/L Chloride 97 L (98-107) mmol/L Carbon Dioxide 25 (21-32) mmol/L Anion Gap 14 H (3-11) BUN 29 H (6-23) mg/dl Creatinine 1.12 (0.6-1.2) mg/dl Est Cr Clr Drug Dosing Not Reportable Est GFR ( Amer) 57.6 ml/min Est GFR (Non-Af Amer) 49.7 ml/min BUN/Creatinine Ratio 25.9 H (10-20) Glucose 94 (70-99(Fasting)) mg/dl Calcium 5.3 L* (8.6-10.3) mg/dl Total Bilirubin 0.8 (0.2-1.0) mg/dl AST 35 (13-39) U/L ALT 30 (7-52) U/L Alkaline Phosphatase 134 H (34-104) U/L Troponin I High Sens 21.9 H (0-14) pg/ml B-Natriuretic Peptide (0-100) pg/ml Total Protein 7.1 (6.0-8.3) gm/dl Albumin 4.0 (3.4-5.0) gm/dl Globulin 3.1 (2.5-4.0) gm/dl Albumin/Globulin Ratio 1.3 (0.9-2) Lipase 45 (11-82) U/L SARS-CoV-2 (PCR) (Negative) Influenza Type A (PCR) (Neg) Influenza Type B (PCR) (Neg) RSV (RT-PCR) (Neg) 01/11/23 01/11/23 Range/Units 10:37 12:29 WBC (4.8-10.8) K/ul RBC (4.20-5.40) M/uL Hgb (12.0-16.0) g/dl Hct (37.0-47.0) % MCV (80.0-100.0) fL MCH (25.0-34.0) pg MCHC (32.0-36.0) g/dL RDW Std Deviation (36.4-46.3) fL RDW Coeff of Saman (11.5-14.5) % Plt Count (130-400) K/uL MPV (9.4-12.4) fL Immature Gran % (Auto) % Neut % (Auto) % Lymph % (Auto) % [place] % (Auto) % Eos % (Auto) % Baso % (Auto) % Neut # (Auto) (1.40-6.50) K/uL Lymph # (Auto) (1.2-3.4) K/uL [place] # (Auto) (0.11-0.59) K/uL Eos # (Auto) (0-0.50) K/uL Baso # (Auto) (0-0.2) K/uL Immature Gran # (Auto) (0.01-0.20) K/uL PT (9.0-12.0) Seconds INR (0.9-1.1) Sodium (136-145) mmol/L Potassium (3.5-5.1) mmol/L Chloride (98-107) mmol/L Carbon Dioxide (21-32) mmol/L Anion Gap (3-11) BUN (6-23) mg/dl Creatinine (0.6-1.2) mg/dl Est Cr Clr Drug Dosing Est GFR ( Amer) ml/min Est GFR (Non-Af Amer) ml/min BUN/Creatinine Ratio (10-20) Glucose (70-99(Fasting)) mg/dl Calcium (8.6-10.3) mg/dl Total Bilirubin (0.2-1.0) mg/dl AST (13-39) U/L ALT (7-52) U/L Alkaline Phosphatase (34-104) U/L Troponin I High Sens (0-14) pg/ml B-Natriuretic Peptide 200 H (0-100) pg/ml Total Protein (6.0-8.3) gm/dl Albumin (3.4-5.0) gm/dl Globulin (2.5-4.0) gm/dl Albumin/Globulin Ratio (0.9-2) Lipase (11-82) U/L SARS-CoV-2 (PCR) NEGATIVE (Negative) Influenza Type A (PCR) Negative (Neg) Influenza Type B (PCR) Negative (Neg) RSV (RT-PCR) Negative (Neg) Administered Medications Discontinued Medications Albuterol (Albut/Ipratrop 3mg/0.5mg Neb 3 Ml Vial) 6 ml NEB NOW STA; Protocol Stop: 01/11/23 10:41 Last Admin: 01/11/23 11:02 Dose: 6 ml Documented By: SWATI Calcium Gluconate () 1,000 mg in 60 mls @ 240 mls/hr IV Q15M ISHAN Stop: 01/11/23 12:14 Last Infusion: 01/11/23 12:14 Dose: 0 mls/hr Documented By: Admin: 01/11/23 11:58 Dose: 240 mls/hr Documented By: Infusion: 01/11/23 11:58 Dose: 240 mls/hr Documented By: Admin: 01/11/23 11:43 Dose: 240 mls/hr Documented By: OATalha Methylprednisolone (Methylprednisolone 125 Mg/2 Ml Vial) 60 mg IV NOW STA Stop: 01/11/23 10:40 Last Admin: 01/11/23 11:03 Dose: 60 mg Documented By: OAM Morphine Sulfate (Morphine Sulfate 4 Mg/Ml 1 Ml Carp\\Vial) 4 mg IV NOW STA Stop: 01/11/23 12:17 Last Admin: 01/11/23 12:24 Dose: 4 mg Documented By: OAM Ondansetron HCl (Ondansetron Inj 2 Mg/Ml 2 Ml Vial) 4 mg IV NOW STA Stop: 01/11/23 12:17 Last Admin: 01/11/23 12:24 Dose: 4 mg Documented By: OA Imaging Data Radiologist's Impression: Chest X-Ray 01/11/23 10:39 XR chest 1V portable HISTORY: Chest pain, nonspecific COMPARISON: Chest 09/16/2022. FINDINGS: No pneumothorax. No pleural effusions. No focal lung consolidations to suggest a pneumonia. No evidence for pulmonary edema. The cardiac silhouette is mildly enlarged. There is a left-sided dual-chamber pacemaker. There is mild central pulmonary vascular congestion without overt edema. This has slightly progressed. IMPRESSION: Mild cardiomegaly with mild congestive change. This has slightly progressed. ACT 112: Negative or not required by law. Electronically signed by: Harish Mckeon M.D. 01/11/2023 11:40 AM Hand X-Ray 01/11/23 11:08 XR hand RT min 3V routine HISTORY: 72 years-old Female r hand pain acute pain and swelling of the right hand COMPARISON: None TECHNIQUE: 3 views of the right hand FINDINGS: Demineralized appearance the bones. Study is limited secondary to positioning of the first digit. There is severe joint space narrowing within the second through fifth distal interphalangeal joints with suggestion of chronic articular erosions and subcortical cystic changes. Otherwise multifocal mild to moderate osteoarthritis. No acute fracture, dislocation or opaque foreign body. Mild diffuse soft tissue swelling of the wrist, distal forearm and hand. IMPRESSION: 1. Soft tissue swelling without acute osseous abnormality. 2. Findings suggestive of erosive osteoarthritis of the distal interphalangeal joints. ACT 112: Negative or not required by law. The above report was generated using voice recognition software. It may contain grammatical, syntax or spelling errors. Electronically signed by: Roe Bejarano M.D. 01/11/2023 11:33 AM Venous Doppler Study 01/11/23 12:07 ULTRASOUND RIGHT UPPER EXTREMITY VENOUS CLINICAL HISTORY: Right arm swelling. COMPARISON STUDY: No priors. TECHNIQUE: Real-time, grayscale, and color Doppler sonography of the deep veins of the right upper extremity is performed. Compression and augmentation were utilized. FINDINGS: There is no sonographic evidence of deep venous thrombosis identified in the right upper extremity. The right internal jugular, axillary, and brachial veins are patent and normally compressible. Normal venous waveforms and augmentation are seen within the right subclavian vein. The cephalic and basilic veins are clear. The visualized radial and ulnar veins are patent. IMPRESSION: There is no sonographic evidence of deep venous thrombosis i dentified in the right upper extremity. ACT 112: Negative or not required by law. Electronically signed by: Jason Bergeron M.D. 01/11/2023 1:51 PM Discharge Plan Visit Data Chief Complaint: Shortness of Breath/Dyspnea Stated Complaint: SOB, NAUSEA, JAW PAIN ED Provider: Remigio Chawla Discharge Problem: Acute dyspnea, Anemia, Leukocytosis, Hand pain, right, Hypocalcemia, Elevated troponin Forms Stand Alone Forms: My [facility] [employer] Prescriptions Prescriptions: No Action acetaminophen [Tylenol Extra Strength] 500 mg Tablet 1,000 mg PO Q8H PRN (Reason: pain) Qty: 50 0RF fluticasone propion-salmeterol [Advair Diskus] 250-50 mcg/dose Blister With Device 1 inh INHALATION BID 30 Days Qty: 60 0RF ondansetron HCl 4 mg Tablet 4 mg PO Q12H PRN (Reason: NAUSEA/VOMITING) Qty: 15 0RF warfarin 2.5 mg Tablet See Rx Instructions .ROUTE .COMPLEX Qty: 30 0RF Rx Instructions: 2.5 mg orally; TAKES 2.5 MG ON TUE AND SAT. THEN 1.25 MG ON MON, TUES, THURS, FRI. TAKES AT 1600 DAILY. zafirlukast [Accolate] 20 mg tablet 20 mg PO BID 30 Days Qty: 60 0RF digoxin [Digitek] 125 mcg (0.125 mg) tablet 125 mcg PO QAM 30 Days Qty: 30 0RF albuterol sulfate [Ventolin HFA] 90 mcg/actuation Hfa Aerosol Inhaler 2 puff INHALATION QID PRN (Reason: Shortness Of Breath Or Wheezing) Qty: 8.5 0RF sertraline [Zoloft] 50 mg Tablet 50 mg PO QAM 30 Days Qty: 30 0RF cholecalciferol (vitamin D3) [Vitamin D3] 2,000 unit Capsule 2,000 unit PO QAM 30 Days Qty: 30 0RF Vitron-C 65 mg iron- 125 mg Tablet,Delayed Release (Dr/Ec) 1 tab PO BID 30 Days Qty: 60 0RF omeprazole 40 mg Capsule,Delayed Release(Dr/Ec) 40 mg PO QAM gabapentin 100 mg Tablet 400 mg PO TID magnesium 200 mg tablet 200 mg PO QAM diphenhydramine HCl 12.5 mg tablet,chewable 12.5 mg PO BID PRN (Reason: allergic reaction) Qty: 30 0RF polyethylene glycol 3350 [Miralax] 17 gram Powder In Packet 17 g PO DAILY Qty: 30 0RF potassium chloride 20 mEq tablet,ER particles/crystals 20 meq PO BID Referrals Referrals: PCP.,NO [Other]
[2023-01-11 10:59] LABS: Basophils # (auto) 0.04 K/uL (0-0.2); Basophils % (auto) 0.3 %; Eosinophils # (auto) 0.45 K/uL (0-0.50); Eosinophils % (auto) 3.4 %; Hematocrit (blood only) 33.5 % (37.0-47.0); Hemoglobin 10.9 g/dl (12.0-16.0); Immature Granulocytes # (auto) 0.05 K/uL (0.01-0.20); Immature Granulocytes % (auto) 0.4 %; Lymphocytes # (auto) 1.23 K/uL (1.2-3.4); Lymphocytes % (auto) 9.3 %; Mean Corpuscular Hgb Conc 32.5 g/dL (32.0-36.0); Mean Corpuscular Volume 89.1 fL (80.0-100.0); Mean Platelet Volume 9.3 fL (9.4-12.4); Monocytes # (auto) 0.92 K/uL (0.11-0.59); Neutrophils # (auto) 10.53 K/uL (1.40-6.50); Neutrophils % (auto) 79.6 %; Platelet Count 340 K/uL (130-400); RDW Coefficient of Variation 15.1 % (11.5-14.5); RDW Standard Deviation 49.2 fL (36.4-46.3); Red Blood Count 3.76 M/uL (4.20-5.40); White Blood Count 13.22 K/ul (4.8-10.8)
[2023-01-11 11:09] LABS: INR 2.1 (0.9-1.1); Prothrombin Time 21.2 Seconds (9.0-12.0)
[2023-01-11 11:21] LABS: Alanine Aminotransferase 30 U/L (7-52); Albumin Globulin Ratio 1.3 (0.9-2); Alkaline Phosphatase 134 U/L (34-104); Anion Gap 14 (3-11); Aspartate Aminotransferase 35 U/L (13-39); BUN Creatinine Ratio 25.9 (10-20); Bilirubin,Total 0.8 mg/dl (0.2-1.0); Blood Urea Nitrogen 29 mg/dl (6-23); Calcium 5.3 mg/dl (8.6-10.3); Carbon Dioxide 25 mmol/L (21-32); Chloride 97 mmol/L (98-107); Est GFR (African American) 57.6 ml/min; Est GFR (Non-African American) 49.7 ml/min; Globulin 3.1 gm/dl (2.5-4.0); Glucose 94 mg/dl (70-99(Fasting)); Lipase 45 U/L (11-82); Potassium 3.9 mmol/L (3.5-5.1); Sodium 136 mmol/L (136-145); Total Protein 7.1 gm/dl (6.0-8.3)
--- NOTE | 2023-01-11 11:34 | XRay Report ---
XR hand RT min 3V routine HISTORY: 72 years-old Female r hand pain acute pain and swelling of the right hand COMPARISON: None TECHNIQUE: 3 views of the right hand FINDINGS: Demineralized appearance the bones. Study is limited secondary to positioning of the first digit. The re is severe joint space narrowing within the second through fifth distal interphalangeal joints with suggestion of chronic articular erosions and subcortical cystic changes. Otherwise multifocal mild t o moderate osteoarthritis. No acute fracture, dislocation or opaque foreign body. Mild diffuse soft t issue swelling of the wrist, distal forearm and hand. IMPRESSION: 1. Soft tissue swelling without acute osseous abnormality. 2. Findings suggestive of erosive osteoarthritis of the distal interphalangeal joints. ACT 112: Negative or not required by law. The above report was generated using voice recognition software. It may contain grammatical, syntax o r spelling errors. Electronically signed by: Roe Bejarano M.D. 01/11/2023 11:33 AM
--- NOTE | 2023-01-11 11:41 | XRay Report ---
XR chest 1V portable HISTORY: Chest pain, nonspecific COMPARISON: Chest 09/16/2022. FINDINGS: No pneumothorax. No pleural effusions. No focal lung consolidations to suggest a pneumonia. No evidence for pulmonary edema. The cardiac silhouette is mildly enlarged. There is a left-sided du al-chamber pacemaker. There is mild central pulmonary vascular congestion without overt edema. This h as slightly progressed. IMPRESSION: Mild cardiomegaly with mild congestive change. This has slightly progressed. ACT 112: Negative or not required by law. Electronically signed by: Harish Mckeon M.D. 01/11/2023 11:40 AM
[2023-01-11] MEDS: CALCIUM GLUCONATE 1,000 MG/60 ML BAG IV SCH ×2 (11:43→11:58)
[2023-01-11 11:46] LABS: Troponin I High Sensitivity 21.9 pg/ml (0-14)
[2023-01-11] MEDS ORDERED: MoRPHine SULFATE 4 MG/ML 1 ML CARP\\VIAL IV STA (12:16)
[2023-01-11] MEDS ORDERED: ONDANSETRON INJ 2 MG/ML 2 ML VIAL IV STA (12:16)
[2023-01-11] MEDS ORDERED: ONDANSETRON INJ 2 MG/ML 2 ML VIAL IV PRN (12:33)
[2023-01-11] MEDS ORDERED: ALUMINUM/MAGNESIUM SUSP 30 ML UDC PO PRN (12:33)
[2023-01-11] MEDS ORDERED: ACETAMINOPHEN 325 MG TAB PO PRN (12:33)
[2023-01-11] MEDS ORDERED: MAGNESIUM HYDROXIDE SUSP 30 ML UDC PO PRN (12:33)
--- NOTE | 2023-01-11 12:45 | History & Physical Report ---
Date of Service January 11, 2023 Assessment & Plan (1) Acute on chronic diastolic (congestive) heart failure: (2) SOB (shortness of breath): (3) Osteoarthritis: (4) Swelling: (5) Permanent atrial fibrillation: (6) COPD (chronic obstructive pulmonary disease): (7) History of bariatric surgery: (8) Feeding by G-tube: (9) Tachy-corin syndrome: (10) Hyperlipidemia: (11) Osteoporosis: (12) Depression: Plan 72 year old female presents with SOB at routine lab work appointment. New onset right wrist swelling. [place] PMH with CHF, chronic AF (On coumadin), pacemaker placement s/p Tachy/corin syndrome, H/O bariatric sx and G-Tube placement for malnourishment. Acute on chronic diastolic CHF: Shortness of breath: Presented with increasing shortness of breath. Hypoxic on nonrebreather; placed on BiPAP FiO2 30% Chest x-ray with mild pulmonary congestion without edema; slight progression from previous studies BNP [address] Haskins's office as outpatient Takes torsemide 40 mg p.o. daily; continue One dose Lasix 40 mg IV; reevaluate in AM [place] for accurate I/O Pt with malnourishment; NPO while on Bipap Troponin 21.9; will trend x1; do not suspect ACS rather ischemic demand Most recent ECHO 11/08: EF 55 to 59% with moderate AR/TR, no PHTN, mild grade 1 diastolic dysfunction; will repeat ECHO SOB with minimal exertion walking to bathroom complicated with tricuspid regurg N.p.o. while on BiPAP; aspiration precaution Hypocalcemia: Calcium 5.3; replaced with calcium gluconate in ED; will trend Suspect due to malnourishment Osteoarthritis: Swelling of right wrist: Started 24 hours ago; denies recent falls or trauma Slight leukocytosis WBC 13.22 Right hand x-ray indicates soft tissue swelling without fractures and suggests osteoarthritis Soft tissue ultrasound pending Blood cultures pending Chronic atrial fibrillation: History of tachybradycardia syndrome: Status post pacemaker placement 2018 On chronic Coumadin; compliant with medication Last fall 02/05 Outpatient INR at times subtherapeutic; today as outpatient 3.0; INR in ED 2.1; okay to continue Coumadin for now Trend INR in a.m. Malnourishment: History of bariatric surgery 2003: History of gastric fistula 2015: G-tube placement 2021: History of COVID-pneumonia led to G-tube placement PEG tube feeding nightly Peptamen 65 mL/h over 12 hours. Water flush of 150 mL before and after tube feeding Patient reports eating 2 meals per day and adequate oral water intake Follows with wound clinic for superficial pruritic N.p.o. for now while on BiPAP; order diet when off BiPAP Aspiration precautions Reports having GERD with feedings intermittently May benefit from Palliative Medicine encounter Chronic Osteoporosis: Chronic back back with radiculopathy Follows with Ortho as outpatient Takes Prolia Depression: Takes Sertraline and Cymbalta; continue Disposition: PCP: Dr. Kimble CODE STATUS: Full code VTE prophylaxis: Therapeutic on Coumadin I spent a total of 87 minutes coordinating, documenting, and providing care for this patient excluding time spent in the performance of separately billed services. All of the aforementioned completed while collaborating with the assigned attending physician for a full treatment plan. Please see their addendum for further details. History of Present Illness Chief Complaint: SOB Primary Care Provider: Dr. Kimble Ms. Andra Higgins is a 72-year-old female that presented to the [facility] via EMS after her scheduled appointment at [place] [id number] and over where she presented for a routine INR check and evaluation of right wrist swelling. At the clinic she was noted to be hypoxic with increased shortness of breath. Her SPO2 measured 80% and she was placed on 4 L nasal cannula without improvement. Upon arrival to the ED her SPO2 was 85% and she was placed on nonrebreather and subsequently placed on BiPAP. Patient denies orthopnea or any recent illness or cough. Patient is a non-smoker and denies alcohol or recreational drug use. She reports using her albuterol rescue inhaler at least daily. She reports being compliant with all of her medications however did not take any of her medications this morning. Patient has a complex medical history that includes tachybradycardia syndrome status post pacemaker placement 2018, diastolic CHF, bariatric surgery 2003, gastric fistula surgery 2014 with Gtube placement in 2021 with chronic tube feedings, A-fib with RVR on chronic Coumadin, COPD, anemia, depression, hyperlipidemia and GERD. While she does not use CPAP now she does report having used it in the past. A right hand x-ray indicated swelling related to osteoarthritis without fractures. Soft tissue ultrasound being performed during my exam. Slight leukocytosis WBC 13.22, calcium 5.3 which was replaced in the ED with calcium gluconate. Slight bump in troponin 21.9; will trend x1 however do not suspect ACS, rather ischemic demand. Repeat chest x-ray in the a.m. Patient is followed by Dr. Haskins as an outpatient for management of chronic diastolic heart failure and her last appointment was December 10, 2022. Her most recent echocardiogram was October 2022 EF 55 to 59%, mild AR, mild TR, no pulmonary hypertension but notable mild grade 1 diastolic dysfunction. Per review of EMR she does report intermittent shortness of breath and uses her inhaler more frequently. Her torsemide dose has been increased over the past few months for short timeframe but is now back to her daily baseline of 40 mg daily. Throughout our conversation she did interrupt me a few times encouraging me to call her as she is worried about him. He is currently undergoing chemotherapy treatment for bladder cancer and she became tearful stating that its been a lot to care for him on top of her own medical ailments. Her and her are being followed by [facility] monzon. During my examination she was awake alert oriented x4 and able to hold meaningful conversation. I did remove her BiPAP (FiO2 30% 5 PEEP)when I was in the room and she desaturated to 83% and became more dyspneic with conversation. Heart rate remained controlled in the 80s and no palpitations were noted during my exam. Patient will be admitted for further evaluation and management. Please see A/P for further details. Allergies Allergy/AdvReac Type Severity Reaction Status Date / Time No Known Allergies Allergy Verified 01/04/23 09:02 Home Medications Medication Instructions Recorded Confirmed Type acetaminophen 500 mg tablet 1,000 mg PO Q8H PRN pain #50 tabs 01/30/22 01/11/23 Rx (Tylenol Extra Strength) albuterol sulfate 90 mcg/actuation 2 puff inhalation QID PRN 01/30/22 01/11/23 Rx aerosol inhaler (Ventolin HFA) Shortness Of Breath Or Wheezing #8.5 grams cholecalciferol (vitamin D3) 50 2,000 unit PO QAM 30 days #30 caps 01/30/22 01/11/23 Rx mcg (2,000 unit) capsule (Vitamin D3) digoxin 125 mcg (0.125 mg) tablet 125 mcg PO QAM 30 days #30 tabs 01/30/22 01/11/23 Rx (Digitek) fluticasone 250 mcg-salmeterol 50 1 inh inhalation BID 30 days #60 ea 01/30/22 01/11/23 Rx mcg/dose blistr powdr for inhalation (Advair Diskus) iron,carbonyl 65 mg-vitamin C 125 1 tab PO BID 30 days #60 tabs 01/30/22 01/11/23 Rx mg tablet,delayed release (Vitron-C) ondansetron HCl 4 mg tablet 4 mg PO Q12H PRN NAUSEA/VOMITING 01/30/22 01/11/23 Rx #15 tabs sertraline 50 mg tablet (Zoloft) 50 mg PO QAM 30 days #30 tabs 01/30/22 01/11/23 Rx warfarin 2.5 mg tablet See Rx Instructions .Route 01/30/22 01/11/23 Rx .COMPLEX #30 tabs zafirlukast 20 mg tablet (Accolate) 20 mg PO BID 30 days #60 tabs 01/30/22 01/11/23 Rx potassium chloride 20 mEq 20 meq PO BID 02/22/22 01/11/23 History tablet,extended release(part/cryst) gabapentin 100 mg tablet 400 mg PO TID 06/08/22 01/11/23 History magnesium 200 mg tablet 200 mg PO QAM 06/08/22 01/11/23 History omeprazole 40 mg capsule,delayed 40 mg PO QAM 06/08/22 01/11/23 History release diphenhydramine HCl 12.5 mg 12.5 mg PO BID PRN allergic 09/19/22 01/11/23 Rx chewable tablet reaction #30 tabs polyethylene glycol 3350 17 gram 17 g PO DAILY #30 ea 09/19/22 01/11/23 Rx oral powder packet (Miralax) Past Med/Surg History Medical History (Updated 01/11/23 @ 14:15 by Remigio Chawla DO) A-fib S/P DANAE guided DCCV 10/2018. Reverted back to afib 03/2020. External DCCV 04/23/20. Anticoagulated warfarin daily CHF (congestive heart failure) Chronic heart failure with preserved ejection fraction (HFpEF) COPD (chronic obstructive pulmonary disease) inhalers Depression Diastolic dysfunction Grade 2 SUTTON (dyspnea on exertion) Feeding by G-tube GERD (gastroesophageal reflux disease) Hard of hearing Hyperlipidemia Hypoalbuminemia Hypotension Nausea Osteoarthritis Osteoporosis Sacroiliac joint pain Severe tricuspid regurgitation Swelling Tachy-corin syndrome s/p pacemaker insertion 10/2018 with DANAE/cardioversion Tremor Surgical History (Updated 01/11/23 @ 13:44 by SONA Redmond) H/O colonoscopy H/O gastric bypass H/O hernia repair H/O ventral hernia repair History of bariatric surgery History of cardioversion "awhile ago", [facility]; f/u Dr. Haskins History of cholecystectomy History of esophagogastroduodenoscopy (EGD) History of transesophageal echocardiography (DANAE) Pacemaker [employer] [place]---placed 11/03/[address] 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 Required: No Beliefs That Will Affect Care: None marital status: Current Living Situation: Spouse Current Living Situation Comment: Home with current occupational status: employed current occupation: [employer] but on medical leave Feels Safe at Home: Yes Diet Comment: And fluid restriction caffeine: No Assistive Devices: Cane and Walker Review of Systems Review of Systems: Neuro: (-) Falls, trauma, slurred speech HEENT: (-) DANIEL, dizziness, dysphagia, visual or auditory changes CV: (-) CP, palpitations, (+) swelling Resp: (+) SOB GI: (-) appetite changes, N/V/D, bowel changes : (-) urinary changes Skin: (+) peticheal rashes Psych: (+) anxiety, depression Physical Exam Physical Exam: Neuro: AAOx4, PERRLA, no aphagia, memory changes, CNII-XII grossly intact HEENT: head normocephalic, moist mucus membranes CV: S1/S2, (-) M/G/R, (+) edema right wrist and RLE, cap refill < 3 seconds Resp: Lungs decreased in all flowers. (-) crackles On Bipap GI: Abdomen S/NT/ND, Ax4 bowel sounds, (-) CVA tenderness. LUQ G-Tube Musculoskeletal: 5/5 B/L UE strength, 5/5 B/L LE strength. No gait disturbance Skin: very frail skin. RLE erythema and swelling, open laceration on pettit and dime sized ecchymosis right lateral pettit. Psych: euthymic mood Results & Data Results & Data Vital Signs (Past 12 Hours) Vital Signs Temp Pulse Pulse Resp BP BP Pulse Ox 01/11/23 12:05 93 H 01/11/23 12:00 104 H 23 160/96 H 99 01/11/23 11:13 01/11/23 11:02 96 H 30 H 94 01/11/23 11:02 95 H 28 H 99 01/11/23 10:52 97 01/11/23 10:46 01/11/23 10:46 37.0 C 93 H 30 H 143/120 H 91 O2 Del Method O2 Flow Rate FiO2 01/11/23 12:05 01/11/23 12:00 BiPAP 01/11/23 11:13 BiPAP 01/11/23 11:02 30 01/11/23 11:02 BiPAP 30 01/11/23 10:52 Nasal Cannula 4 01/11/23 10:46 Nasal Cannula 4 01/11/23 10:46 Room Air Laboratory Results Short CBC 01/11/23 Range/Units 10:37 WBC 13.22 H (4.8-10.8) K/ul Hgb 10.9 L (12.0-16.0) g/dl Hct 33.5 L (37.0-47.0) % Plt Count 340 (130-400) K/uL BMP 01/11/23 10:37 Sodium 136 Potassium 3.9 Chloride 97 L Carbon Dioxide 25 BUN 29 H Creatinine 1.12 Glucose 94 Calcium 5.3 L* Liver Function 01/11/23 Range/Units 10:37 Total Bilirubin 0.8 (0.2-1.0) mg/dl AST 35 (13-39) U/L ALT 30 (7-52) U/L Alkaline Phosphatase 134 H (34-104) U/L Albumin 4.0 (3.4-5.0) gm/dl Diagnostic Findings Chest X-Ray 01/11/23 10:39 XR chest 1V portable HISTORY: Chest pain, nonspecific COMPARISON: Chest 09/16/2022. FINDINGS: No pneumothorax. No pleural effusions. No focal lung consolidations to suggest a pneumonia. No evidence for pulmonary edema. The cardiac silhouette is mildly enlarged. There is a left-sided dual-chamber pacemaker. There is mild central pulmonary vascular congestion without overt edema. This has slightly progressed. IMPRESSION: Mild cardiomegaly with mild congestive change. This has slightly progressed. ACT 112: Negative or not required by law. Electronically signed by: Harish Mckeon M.D. 01/11/2023 11:40 AM Hand X-Ray 01/11/23 11:08 XR hand RT min 3V routine HISTORY: 72 years-old Female r hand pain acute pain and swelling of the right hand COMPARISON: None TECHNIQUE: 3 views of the right hand FINDINGS: Demineralized appearance the bones. Study is limited secondary to positioning of the first digit. There is severe joint space narrowing within the second through fifth distal interphalangeal joints with suggestion of chronic articular erosions and subcortical cystic changes. Otherwise multifocal mild to moderate osteoarthritis. No acute fracture, dislocation or opaque foreign body. Mild diffuse soft tissue swelling of the wrist, distal forearm and hand. IMPRESSION: 1. Soft tissue swelling without acute osseous abnormality. 2. Findings suggestive of erosive osteoarthritis of the distal interphalangeal joints. ACT 112: Negative or not required by law. The above report was generated using voice recognition software. It may contain grammatical, syntax or spelling errors. Electronically signed by: Roe Bejarano M.D. 01/11/2023 11:33 AM Code Status & VTE Plan Code Status Full code in the event of cardiac or respiratory arrest VTE Prophylaxis Plan VTE Prophylaxis will be ordered: Yes Supervising Physician Co-Signing Physician Notes Attending addendum: The patient was seen and examined in emergency room She is on BiPAP right now but has been communicating well She has been complaining of increasing shortness of breath specially since this morning without any chest pain and/or palpitation She also has swelling of the legs more than usual Denies any abdominal pain, nausea no vomiting and no fever and or chills On examination Lying in bed with moderate shortness of breath and on BiPAP Hemodynamically stable Chest-decreased breath sounds bilaterally with minimal bibasilar crackles HeartS1-S2, irregular Abdomenbenign, soft, bowel sound present Extremitiesbilateral leg edema 1-2+ more on the right than the left DISABILITY INSURANCE CLAIM EXAMINER-alert, awake and oriented. Generally weak without any focal neurodeficit Her admission labs, EKG and imaging studies reviewed Has acute on chronic diastolic heart failure, respiratory failure and hypocalcemia Lasix has been started, receiving BiPAP now and calcium replacement is done She will have echocardiogram and cardiology evaluation Agree with assessment plan as outlined above by Rosario Alberts
[2023-01-11 13:18] LABS: Influenza A virus by PCR Negative (Neg); Influenza B virus by PCR Negative (Neg); RSV by PCR Negative (Neg); SARS CoV2 RNA(COVID-19) Ceph NEGATIVE (Negative)
[2023-01-11] MEDS ORDERED: FUROSEMIDE 40 MG/4 ML VIAL IV ONE (13:26)
--- NOTE | 2023-01-11 13:47 | Electrocardiogram Report ---
Test Reason : Blood Pressure : / mmHG Vent. Rate : 101 BPM Atrial Rate : 104 BPM P-R Int : 000 ms QRS Dur : 088 ms QT Int : 302 ms P-R-T Axes : 000 -51 086 degrees QTc Int : 391 ms Poor data quality, interpretation may be adversely affected Atrial fibrillation with rapid ventricular response Left axis deviation Low voltage QRS Septal infarct , age undetermined Abnormal ECG When compared with ECG of 16-SEP-2022 21:48, Electronic ventricular pacemaker no longer present Confirmed by Gutierrez Mistry ([id number]) on 01/11/2023 1:47:16 PM Referred By: Confirmed By:Gutierrez Mistry
--- NOTE | 2023-01-11 13:53 | Ultrasound Report ---
ULTRASOUND RIGHT UPPER EXTREMITY VENOUS CLINICAL HISTORY: Right arm swelling. COMPARISON STUDY: No priors. TECHNIQUE: Real-time, grayscale, and color Doppler sonography of the deep veins of the right upper ex tremity is performed. Compression and augmentation were utilized. FINDINGS: There is no sonographic evidence of deep venous thrombosis identified in the right upper ex tremity. The right internal jugular, axillary, and brachial veins are patent and normally compressibl e. Normal venous waveforms and augmentation are seen within the right subclavian vein. The cephalic a nd basilic veins are clear. The visualized radial and ulnar veins are patent. IMPRESSION: There is no sonographic evidence of deep venous thrombosis identified in the right upper extremity. ACT 112: Negative or not required by law. Electronically signed by: Jason Bergeron M.D. 01/11/2023 1:51 PM
[2023-01-11] MEDS ORDERED: ALBUTEROL HFA 8 GM INHALER INH PRN (14:14)
[2023-01-11] MEDS: DIGOXIN 0.125 MG TAB PO SCH (15:19)
[2023-01-11 15:28] LABS: Appearance Urine Clear (Clear); Bilirubin Urine Negative (Negative); Blood Urine Negative (Negative); Color Urine Yellow; Glucose Urine UA Negative (Negative); Ketones Urine 1+ (Negative); Leukocyte Esterase Urine Negative (Negative); Nitrite Urine Negative (Negative); Protein Urine Negative (Negative); Specific Gravity Urine 1.018 (1.000-1.030); Urobilinogen Urine Negative (Negative)
--- NOTE | 2023-01-11 16:26 | Cardiology Consultation ---
Date of Consultation January 11, 2023 Assessment & Plan (1) Acute on chronic diastolic (congestive) heart failure: (2) Fractured coccyx: (3) SOB (shortness of breath): (4) Tachy-corin syndrome: (5) Cardiac pacemaker in situ: (6) COPD (chronic obstructive pulmonary disease): (7) Tachy-corin syndrome: (8) A-fib: (9) Atrial fibrillation with rapid ventricular response: Plan Patient presents with significant hypoxia and shortness of breath Physical exam consistent with slight volume overload Permanent A-fib now with rapid ventricular response INR therapeutic Echocardiogram unchanged compared to previous with normal LV systolic function and moderate tricuspid regurgitation We will diurese with IV Lasix twice daily and follow her status clinically History of Present Illness Reason for Consultation: Heart failure Requesting Physician: [facility] hospitalist group Attending Physician: Bob Alberts MD History of Present Illness It was my pleasure to see Mrs. Higgins in cardiac consultation today January 11, 2023. She is a very pleasant 72-year-old woman currently on BiPAP in the emergency department. She was sent to the emergency department today from her PCPs office after she was found to be short of breath and hypoxic. She reportedly saturating 80% on room air at the office. She states that her breathing has been consistently deteriorating over the last several weeks. She denies any dietary indiscretion and states that she has been compliant with all of her medications. She denies any chest pain, palpitations, lightheadedness or dizziness. Upon arrival emergency department she was found to be hypoxic despite supplemental O2 and placed on BiPAP and given a dose of IV Lasix. Already with brisk diuresis. Past medical history: 1. Permanent atrial fibrillation, on Coumadin, metoprolol succinate and digoxin, [id number] score of 2 (female and age) a. History of DCCV 04/23/2020 2. Paroxysmal atrial tachycardia 3. 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 Severe tricuspid regurgitation per echo 03/2021, concerned that the RV pacing lead may be playing a role. TR classified as moderate on echo at [facility] 07/2021. 5. Chronic diastolic CHF, NYHA class 3 6. Essential tremor 7. Hypotension 8. ? JARRED, was on CPAP in the past with O2 9. H/o bariatric surgery 04/06/2004 a. 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 J-tube placement due to malnutrition, 08/31/2022 Allergies Allergy/AdvReac Type Severity Reaction Status Date / Time No Known Allergies Allergy Verified 01/04/23 09:02 Home Medications Medication Instructions Recorded Confirmed Type acetaminophen 500 mg tablet 1,000 mg PO Q8H PRN pain #50 tabs 01/30/22 01/11/23 Rx (Tylenol Extra Strength) albuterol sulfate 90 mcg/actuation 2 puff inhalation QID PRN 01/30/22 01/11/23 Rx aerosol inhaler (Ventolin HFA) Shortness Of Breath Or Wheezing #8.5 grams cholecalciferol (vitamin D3) 50 2,000 unit PO QAM 30 days #30 caps 01/30/22 01/11/23 Rx mcg (2,000 unit) capsule (Vitamin D3) digoxin 125 mcg (0.125 mg) tablet 125 mcg PO QAM 30 days #30 tabs 01/30/22 01/11/23 Rx (Digitek) fluticasone 250 mcg-salmeterol 50 1 inh inhalation BID 30 days #60 ea 01/30/22 01/11/23 Rx mcg/dose blistr powdr for inhalation (Advair Diskus) iron,carbonyl 65 mg-vitamin C 125 1 tab PO BID 30 days #60 tabs 01/30/22 01/11/23 Rx mg tablet,delayed release (Vitron-C) ondansetron HCl 4 mg tablet 4 mg PO Q12H PRN NAUSEA/VOMITING 01/30/22 01/11/23 Rx #15 tabs sertraline 50 mg tablet (Zoloft) 50 mg PO QAM 30 days #30 tabs 01/30/22 01/11/23 Rx warfarin 2.5 mg tablet See Rx Instructions .Route 01/30/22 01/11/23 Rx .COMPLEX #30 tabs zafirlukast 20 mg tablet (Accolate) 20 mg PO BID 30 days #60 tabs 01/30/22 01/11/23 Rx potassium chloride 20 mEq 20 meq PO BID 02/22/22 01/11/23 History tablet,extended release(part/cryst) gabapentin 100 mg tablet 400 mg PO TID 06/08/22 01/11/23 History magnesium 200 mg tablet 200 mg PO QAM 06/08/22 01/11/23 History omeprazole 40 mg capsule,delayed 40 mg PO QAM 06/08/22 01/11/23 History release diphenhydramine HCl 12.5 mg 12.5 mg PO BID PRN allergic 09/19/22 01/11/23 Rx chewable tablet reaction #30 tabs polyethylene glycol 3350 17 gram 17 g PO DAILY #30 ea 09/19/22 01/11/23 Rx oral powder packet (Miralax) Patient History Medical History A-fib S/P DANAE guided DCCV 10/2018. Reverted back to afib 03/2020. External DCCV 04/23/20. Anticoagulated warfarin daily CHF (congestive heart failure) Chronic heart failure with preserved ejection fraction (HFpEF) COPD (chronic obstructive pulmonary disease) inhalers Depression Diastolic dysfunction Grade 2 SUTTON (dyspnea on exertion) Feeding by G-tube GERD (gastroesophageal reflux disease) Hard of hearing Hyperlipidemia Hypoalbuminemia Hypotension Nausea Osteoarthritis Osteoporosis Sacroiliac joint pain Severe tricuspid regurgitation Swelling Tachy-corin syndrome s/p pacemaker insertion 10/2018 with DANAE/cardioversion Tremor Surgical History H/O colonoscopy H/O gastric bypass H/O hernia repair H/O ventral hernia repair History of bariatric surgery History of cardioversion "awhile ago", [facility]; f/u Dr. Haskins History of cholecystectomy History of esophagogastroduodenoscopy (EGD) History of transesophageal echocardiography (DANAE) Pacemaker [employer] [place]---placed 11/03/[address] Ivey S/P appendectomy S/P small bowel resection Family History Other Cancer Hypertension Lung disease No family history of adverse response to anesthesia Social History Smoking Status: Never smoker Second Hand Exposure: Yes; Do You Dip or Chew Tobacco: No; Hx Alcohol Use: No Hx Substance Use: No Preferred Language: Occitan Communication Ability: Effective Visual Impairment: Limited Hearing Ability: Hard of Hearing Plate Former Required: No Beliefs That Will Affect Care: None marital status: Current Living Situation: Spouse Current Living Situation Comment: Home with current occupational status: employed current occupation: [employer] but on medical leave Other Information That Helps Us Care for You: No Feels Safe at Home: Yes Safety Concerns: Feels Safe At This Time Diet Comment: And fluid restriction caffeine: No Assistive Devices: Cane and Walker Review of Systems Review of Systems: All systems reviewed & are unremarkable except as noted in HPI & below Physical Exam Physical Exam: General: Awake, alert and oriented x 3. No acute distress. HEENT: Normocephalic, atraumatic. Pupils equal, round and reactive to light and accommodation. Extraocular muscles are intact. Anicteric sclera. Moist mucous membranes. Neck: No JVD. No bruit. Cardiovascular: Regular. Positive S-4. Normal S-1 and S-2. No S-3. 3/6 holosystolic ejection murmur, left sternal border, mid-clavicular line with radiation to the axilla. No rubs. Pulmonary: Coarse breath sounds diffusely with bibasilar crackles Abdomen: Bowel sounds x 4, soft. No rebound, guarding or tenderness. No organomegaly. Extremities: No clubbing, cyanosis or edema. +2 pedal pulses bilaterally. Skin: Warm and dry. Results & Data Vital Signs (Past 12 Hours) Vital Signs Temp Pulse Pulse Resp BP BP Pulse Ox 01/11/23 16:00 76 18 133/86 100 01/11/23 12:35 01/11/23 15:30 79 18 136/75 100 01/11/23 14:40 94 H 30 H 95 01/11/23 13:00 87 15 128/70 95 01/11/23 12:05 93 H 01/11/23 12:00 104 H 23 160/96 H 99 01/11/23 11:13 01/11/23 11:02 96 H 30 H 94 01/11/23 11:02 95 H 28 H 99 01/11/23 10:52 97 01/11/23 10:46 01/11/23 10:46 37.0 C 93 H 30 H 143/120 H 91 Pulse Ox O2 Del Method O2 Del Method O2 Flow Rate FiO2 01/11/23 16:00 BiPAP 30 01/11/23 12:35 100 BiPAP 01/11/23 15:30 BiPAP 30 01/11/23 14:40 30 01/11/23 13:00 01/11/23 12:05 01/11/23 12:00 BiPAP 01/11/23 11:13 BiPAP 01/11/23 11:02 30 01/11/23 11:02 BiPAP 30 01/11/23 10:52 Nasal Cannula 4 01/11/23 10:46 Nasal Cannula 4 01/11/23 10:46 Room Air Diagnostic Findings Echo 02/23/2022 at [facility] LVEF 60-65% with moderate concentric LVH Abnormal septal/apical wall motion consistent with pacemaker activation otherwise normal wall motion RV cavity size is normal, systolic function mildly reduced Grade 2 diastolic dysfunction Moderate TR Moderate biatrial enlargement
[2023-01-11] MEDS: WARFARIN SOD 5 MG TAB PO SCH (17:37)
[2023-01-11] MEDS: FLUTICASONE/VILANTEROL 100/25MCG 14 PUFFS/INHALER INH SCH (18:18)
[2023-01-11] MEDS ORDERED: NON-FORMULARY MEDICATION (Iron,Carbonyl-Vitamin C [Vitron-C] 65 mg iron- 125 mg Tablet,Del PO SCH (21:00)
[2023-01-11] MEDS: GABAPENTIN 400 MG CAP PO SCH (21:27)
[2023-01-11] MEDS: POTASSIUM CHLORIDE CRTAB 20 MEQ TABCR PO SCH (21:27)
[2023-01-12 07:31] LABS: Hematocrit (blood only) 29.8 % (37.0-47.0); Hemoglobin 9.7 g/dl (12.0-16.0); Mean Corpuscular Hgb Conc 32.6 g/dL (32.0-36.0); Mean Corpuscular Volume 89.2 fL (80.0-100.0); Mean Platelet Volume 9.8 fL (9.4-12.4); Platelet Count 270 K/uL (130-400); RDW Coefficient of Variation 14.9 % (11.5-14.5); RDW Standard Deviation 48.6 fL (36.4-46.3); Red Blood Count 3.34 M/uL (4.20-5.40); White Blood Count 7.59 K/ul (4.8-10.8)
[2023-01-12 07:36] LABS: INR 2.5 (0.9-1.1); Prothrombin Time 25.1 Seconds (9.0-12.0)
[2023-01-12] MEDS: GABAPENTIN 400 MG CAP PO SCH ×3 (08:54→20:11)
[2023-01-12] MEDS: PANTOprazole 40 MG TAB PO SCH (08:55)
[2023-01-12] MEDS: POTASSIUM CHLORIDE CRTAB 20 MEQ TABCR PO SCH ×2 (08:55→20:13)
[2023-01-12] MEDS: MAGNESIUM OXIDE 400 MG TAB PO SCH (08:55)
[2023-01-12] MEDS: DIGOXIN 0.125 MG TAB PO SCH (08:55)
[2023-01-12] MEDS: SERTRALINE HCL 50 MG TABLET PO SCH (08:56)
[2023-01-12] MEDS: FLUTICASONE/VILANTEROL 100/25MCG 14 PUFFS/INHALER INH SCH (08:56)
[2023-01-12] MEDS ORDERED: CHOLECALCIFEROL 1,000 UNITS 25 MCG TAB PO SCH (09:00)
[2023-01-12 09:14] LABS: BUN Creatinine Ratio 27.5 (10-20); Calcium 5.1 mg/dl (8.6-10.3); Creatinine Clr Calc Pharmacy 37.7 ml/min; Est GFR (Non-African American) 45.8 ml/min; Magnesium 2.1 mg/dl (1.7-2.4); Phosphorus 4.5 mg/dl (2.5-4.9); Potassium 3.6 mmol/L (3.5-5.1)
[2023-01-12] MEDS ORDERED: STAT IV STA (09:19)
[2023-01-12] MEDS ORDERED: CALCIUM GLUCONATE 10% 2,000 MG in DEXTROSE 5% 50 ML IV ONE (09:30)
--- NOTE | 2023-01-12 09:58 | XRay Report ---
SINGLE VIEW CHEST CLINICAL HISTORY: Dyspnea FINDINGS: An AP, portable, upright chest radiograph is compared to study dated 01/11/2023. A 2-lead ca rdiac pacemaker is unchanged in position. The heart is mildly enlarged. Pulmonary vascular congestion has improved from yesterday. The lungs and pleural spaces are clear noting mild bibasilar scarring/a telectasis. No pneumothorax is seen. The skeletal structures are osteopenic. The bony thorax is gross ly intact. Cholecystectomy clips are noted in the right upper quadrant. IMPRESSION: 1. Cardiomegaly and cardiac pacemaker. Pulmonary vascular congestion has improved from yesterday. 2. No airspace consolidation or pleural effusion is identified. ACT 112: Negative or not required by law. Electronically signed by: Jason Bergeron M.D. 01/12/2023 9:56 AM
[2023-01-12] MEDS ORDERED: ERGOCALCIFEROL 50,000 UNITS 1250 MCG CAP PO ONE (11:45)
[2023-01-12] MEDS ORDERED: CALCIUM GLUCONATE 10% 11,000 MG in SODIUM CHLORIDE 0.9% 1000ML 890 ML IV SCH (13:00)
[2023-01-12] MEDS: CALCIUM CARBONATE 1250MG TAB PO SCH ×2 (13:13→20:12)
[2023-01-12] MEDS: CALCIUM GLUCONATE 10% 11,000 MG in SODIUM CHLORIDE 0.9% 1000ML 1,000 ML IV SCH (13:14)
--- NOTE | 2023-01-12 13:49 | Hospitalist Progress Note ---
Date of Service January 12, 2023 Assessment & Plan (1) Acute on chronic diastolic (congestive) heart failure: (2) SOB (shortness of breath): (3) Osteoarthritis: (4) Swelling: (5) Permanent atrial fibrillation: (6) COPD (chronic obstructive pulmonary disease): (7) History of bariatric surgery: (8) Feeding by G-tube: (9) Tachy-corin syndrome: (10) Hyperlipidemia: (11) Osteoporosis: (12) Depression: (13) Hypocalcemia: Plan 72 year old female presents with SOB at routine lab work appointment. New onset right wrist swelling. [facility] with [facility], chronic AF (On coumadin), pacemaker placement s/p Tachy/corin syndrome, H/O bariatric sx and G-Tube placement for malnourishment. She presented with shortness of breath. Acute on chronic diastolic CHF: Shortness of breath: Presented with increasing shortness of breath. Hypoxic on nonrebreather; placed on BiPAP FiO2 30% Chest x-ray with mild pulmonary congestion without edema; slight progression from previous studies BNP [address] Haskins's office as outpatient Takes torsemide 40 mg p.o. daily. Most recent ECHO 11/08: EF 55 to 59% with moderate AR/TR, no PHTN, mild grade 1 diastolic dysfunction; Repeat echo during the hospitalization did not show any significant change Plan; Chest x-ray today shows improvement of pulm edema. We will restart her home dose of torsemide Strict EMMA's Hypocalcemia: Received Prolia injection on 01/03 for osteoporosis Ionized calcium 0.62 Was given 2 g calcium gluconate; will start on infusion. Discussed with pharmacist. Will start oral calcium and calcitriol. Osteoarthritis: Swelling of right wrist: Started 24 hours ago; denies recent falls or trauma Leukocytosis improved. Right hand x-ray indicates soft tissue swelling without fractures and suggests osteoarthritis Reports improvement in her symptoms. Chronic atrial fibrillation: History of tachybradycardia syndrome: Status post pacemaker placement 2018 On chronic Coumadin; compliant with medication Last fall 02/05 Continue warfarin. Malnourishment: History of bariatric surgery 2004: History of gastric fistula 2015: G-tube placement 2021: History of COVID-pneumonia led to G-tube placement PEG tube feeding nightly Peptamen 65 mL/h over 12 hours. Water flush of 150 mL before and after tube feeding Patient reports eating 2 meals per day and adequate oral water intake Tube feeds ordered Chronic Osteoporosis: Chronic back back with radiculopathy Follows with Ortho as outpatient Takes Prolia (last dose in 01/03/2023) Depression: Takes Sertraline and Cymbalta; continue Disposition: PCP: Dr. Kimble CODE STATUS: Full code VTE prophylaxis: Therapeutic on Coumadin Admission and Anticipated Discharge Date Admission Date: January 11, 2023 Subjective Patient seen and examined at bedside. She reports that her shortness of breath has slightly improved compared to admission. She reports tremors. Review of Systems Review of Systems: All systems reviewed & are unremarkable except as noted in Subjective Physical Exam Physical Exam: Neuro: AAOx4, PERRLA, no aphagia, memory changes, CNII-XII grossly intact HEENT: head normocephalic, moist mucus membranes CV: S1/S2, (-) M/G/R, (+) edema right wrist and RLE, cap refill < 3 seconds Resp: Bilateral basilar crackles present. GI: Abdomen S/NT/ND, Ax4 bowel sounds, (-) CVA tenderness. LUQ G-Tube Musculoskeletal: 5/5 B/L UE strength, 5/5 B/L LE strength. No gait disturbance Skin: very frail skin. RLE erythema and swelling, open laceration on pettit and dime sized ecchymosis right lateral pettit. Psych: euthymic mood Results & Data Results & Data Vital Signs (Past 12 Hours) Vital Signs Temp Pulse Pulse Resp BP Pulse Ox O2 Del Method 01/12/23 11:03 36.7 C 75 18 134/79 99 Nasal Cannula 01/12/23 08:50 Nasal Cannula 01/12/23 08:55 79 01/12/23 06:44 78 01/12/23 07:02 36.6 C 81 18 112/69 98 Nasal Cannula 01/12/23 04:16 36.5 C 86 18 119/82 98 BiPAP 01/12/23 03:11 83 13 96 O2 Flow Rate 01/12/23 11:03 2 01/12/23 08:50 4 01/12/23 08:55 01/12/23 06:44 01/12/23 07:02 2.0 01/12/23 04:16 01/12/23 03:11 2 Laboratory Results Laboratory Results WBC 7.59 K/ul (4.8-10.8) 01/12/23 06:34 RBC 3.34 M/uL (4.20-5.40) L 01/12/23 06:34 Hgb 9.7 g/dl (12.0-16.0) L 01/12/23 06:34 Hct 29.8 % (37.0-47.0) L 01/12/23 06:34 MCV 89.2 fL (80.0-100.0) 01/12/23 06:34 MCH 29.0 pg (25.0-34.0) 01/12/23 06:34 MCHC 32.6 g/dL (32.0-36.0) 01/12/23 06:34 RDW Std Deviation 48.6 fL (36.4-46.3) H 01/12/23 06:34 RDW Coeff of Saman 14.9 % (11.5-14.5) H 01/12/23 06:34 Plt Count 270 K/uL (130-400) 01/12/23 06:34 MPV 9.8 fL (9.4-12.4) 01/12/23 06:34 Immature Gran % (Auto) 0.4 % 01/11/23 10:37 Neut % (Auto) 79.6 % 01/11/23 10:37 Lymph % (Auto) 9.3 % 01/11/23 10:37 [place] % (Auto) 7.0 % 01/11/23 10:37 Eos % (Auto) 3.4 % 01/11/23 10:37 Baso % (Auto) 0.3 % 01/11/23 10:37 Neut # (Auto) 10.53 K/uL (1.40-6.50) H 01/11/23 10:37 Lymph # (Auto) 1.23 K/uL (1.2-3.4) 01/11/23 10:37 [place] # (Auto) 0.92 K/uL (0.11-0.59) H 01/11/23 10:37 Eos # (Auto) 0.45 K/uL (0-0.50) 01/11/23 10:37 Baso # (Auto) 0.04 K/uL (0-0.2) 01/11/23 10:37 Immature Gran # (Auto) 0.05 K/uL (0.01-0.20) 01/11/23 10:37 PT 25.1 Seconds (9.0-12.0) H 01/12/23 06:34 INR 2.5 (0.9-1.1) H 01/12/23 06:34 Sodium 140 mmol/L (136-145) 01/12/23 06:34 Potassium 3.6 mmol/L (3.5-5.1) 01/12/23 06:34 Chloride 102 mmol/L (98-107) 01/12/23 06:34 Carbon Dioxide 26 mmol/L (21-32) 01/12/23 06:34 Anion Gap 12 (3-11) H 01/12/23 06:34 BUN 33 mg/dl (6-23) H 01/12/23 06:34 Creatinine 1.20 mg/dl (0.6-1.2) 01/12/23 06:34 Est Cr Clr Drug Dosing 37.7 ml/min 01/12/23 06:34 Est GFR ( Amer) 53.0 ml/min 01/12/23 06:34 Est GFR (Non-Af Amer) 45.8 ml/min 01/12/23 06:34 BUN/Creatinine Ratio 27.5 (10-20) H 01/12/23 06:34 Glucose 96 mg/dl (70-99(Fasting)) 01/12/23 06:34 Calcium 5.1 mg/dl (8.6-10.3) L* 01/12/23 06:34 Ionized Calcium 0.62 mmol/L (1.12-1.32) L* 01/12/23 09:37 Phosphorus 4.5 mg/dl (2.5-4.9) 01/12/23 06:34 Magnesium 2.1 mg/dl (1.7-2.4) 01/12/23 06:34 Total Bilirubin 0.8 mg/dl (0.2-1.0) 01/11/23 10:37 AST 35 U/L (13-39) 01/11/23 10:37 ALT 30 U/L (7-52) 01/11/23 10:37 Alkaline Phosphatase 134 U/L (34-104) H 01/11/23 10:37 Troponin I High Sens 22.0 pg/ml (0-14) H 01/11/23 14:23 B-Natriuretic Peptide 200 pg/ml (0-100) H 01/11/23 10:37 Total Protein 7.1 gm/dl (6.0-8.3) 01/11/23 10:37 Albumin 4.0 gm/dl (3.4-5.0) 01/11/23 10:37 Globulin 3.1 gm/dl (2.5-4.0) 01/11/23 10:37 Albumin/Globulin Ratio 1.3 (0.9-2) 01/11/23 10:37 Lipase 45 U/L (11-82) 01/11/23 10:37 25-OH Vitamin D Total 22.1 ng/ml (30-100) L 01/12/23 09:37 Procalcitonin 0.14 ng/ml (0-0.5) 01/12/23 06:34 TSH 4.169 uIu/ml (0.300-4.500) 01/11/23 10:37 PTH Intact 422.6 pg/ml (12.0-88.0) H 01/12/23 09:37 Urine Color Yellow 01/11/23 15:01 Urine Appearance Clear (Clear) 01/11/23 15:01 Urine pH 5.0 (4.5-7.5) 01/11/23 15:01 Ur Specific [place] 1.018 (1.000-1.030) 01/11/23 15:01 Urine Protein Negative (Negative) 01/11/23 15:01 Urine Glucose (UA) Negative (Negative) 01/11/23 15:01 Urine Ketones 1+ (Negative) H 01/11/23 15:01 Urine Blood Negative (Negative) 01/11/23 15:01 Urine Nitrite Negative (Negative) 01/11/23 15:01 Urine Bilirubin Negative (Negative) 01/11/23 15:01 Urine Urobilinogen Negative (Negative) 01/11/23 15:01 Ur Leukocyte Esterase Negative (Negative) 01/11/23 15:01 SARS-CoV-2 (PCR) NEGATIVE (Negative) 01/11/23 12:29 Influenza Type A (PCR) Negative (Neg) 01/11/23 12:29 Influenza Type B (PCR) Negative (Neg) 01/11/23 12:29 RSV (RT-PCR) Negative (Neg) 01/11/23 12:29 Impressions Hand X-Ray 01/11/23 11:08 XR hand RT min 3V routine HISTORY: 72 years-old Female r hand pain acute pain and swelling of the right hand COMPARISON: None TECHNIQUE: 3 views of the right hand FINDINGS: Demineralized appearance the bones. Study is limited secondary to positioning of the first digit. There is severe joint space narrowing within the second through fifth distal interphalangeal joints with suggestion of chronic articular erosions and subcortical cystic changes. Otherwise multifocal mild to moderate osteoarthritis. No acute fracture, dislocation or opaque foreign body. Mild diffuse soft tissue swelling of the wrist, distal forearm and hand. IMPRESSION: 1. Soft tissue swelling without acute osseous abnormality. 2. Findings suggestive of erosive osteoarthritis of the distal interphalangeal joints. ACT 112: Negative or not required by law. The above report was generated using voice recognition software. It may contain grammatical, syntax or spelling errors. Electronically signed by: Roe Bejarano M.D. 01/11/2023 11:33 AM Venous Doppler Study 01/11/23 12:07 ULTRASOUND RIGHT UPPER EXTREMITY VENOUS CLINICAL HISTORY: Right arm swelling. COMPARISON STUDY: No priors. TECHNIQUE: Real-time, grayscale, and color Doppler sonography of the deep veins of the right upper extremity is performed. Compression and augmentation were utilized. FINDINGS: There is no sonographic evidence of deep venous thrombosis identified in the right upper extremity. The right internal jugular, axillary, and brachial veins are patent and normally compressible. Normal venous waveforms and augmentation are seen within the right subclavian vein. The cephalic and basilic veins are clear. The visualized radial and ulnar veins are patent. IMPRESSION: There is no sonographic evidence of deep venous thrombosis identified in the right upper extremity. ACT 112: Negative or not required by law. Electronically signed by: Jason Bergeron M.D. 01/11/2023 1:51 PM Chest X-Ray 01/12/23 08:00 SINGLE VIEW CHEST CLINICAL HISTORY: Dyspnea FINDINGS: An AP, portable, upright chest radiograph is compared to study dated 01/11/2023. A 2-lead cardiac pacemaker is unchanged in position. The heart is mildly enlarged. Pulmonary vascular congestion has improved from yesterday. The lungs and pleural spaces are clear noting mild bibasilar scarring/atelectasis. No pneumothorax is seen. The skeletal structures are osteopenic. The bony thorax is grossly intact. Cholecystectomy clips are noted in the right upper quadrant. IMPRESSION: 1. Cardiomegaly and cardiac pacemaker. Pulmonary vascular congestion has improv ed from yesterday. 2. No airspace consolidation or pleural effusion is identified. ACT 112: Negative or not required by law. Electronically signed by: Jason Bergeron M.D. 01/12/2023 9:56 AM
[2023-01-12 15:22] LABS: Calcium 6.1 mg/dl (8.6-10.3); Magnesium 2.2 mg/dl (1.7-2.4)
[2023-01-12] MEDS: WARFARIN SOD 2.5 MG TAB PO SCH (15:26)
[2023-01-12] MEDS: TORSEMIDE 10 MG TAB PO SCH (15:26)
[2023-01-12 15:28] LABS: BUN Creatinine Ratio 22.9 (10-20); Creatinine Clr Calc Pharmacy 31.4 ml/min; Est GFR (African American) 42.5 ml/min; Est GFR (Non-African American) 36.7 ml/min; Phosphorus 3.7 mg/dl (2.5-4.9)
[2023-01-12 15:50] LABS: Potassium 4.4 mmol/L (3.5-5.1)
--- NOTE | 2023-01-12 17:04 | Cardiology Progress Note ---
Date of Service January 12, 2023 Assessment & Plan (1) Acute on chronic diastolic (congestive) heart failure: (2) Fractured coccyx: (3) SOB (shortness of breath): (4) Tachy-corin syndrome: (5) Cardiac pacemaker in situ: (6) COPD (chronic obstructive pulmonary disease): (7) A-fib: (8) Atrial fibrillation with rapid ventricular response: Plan Patient presents with significant hypoxia and shortness of breath Physical exam consistent with slight volume overload Permanent A-fib now with rapid ventricular response INR therapeutic Echocardiogram unchanged compared to previous with normal LV systolic function and moderate tricuspid regurgitation We will diurese with IV Lasix twice daily and follow her status clinically 01/12/2023: Patient does not examine is significantly volume overloaded Chest x-ray shows improvement of mild vascular congestion Renal function consistent with intravascular depletion We will give 1 more dose of IV Lasix today Given ongoing hypoxia recommend further pulmonary work-up and possible treatment for COPD exacerbation, will defer to primary team Admission and Anticipated Discharge Date Admission Date: January 11, 2023 Subjective Patient seen and examined. Chart reviewed. Telemetry reviewed. Still requiring 2 L nasal cannula. States slight improvement in breathing since admission Review of Systems Review of Systems: All systems reviewed & are unremarkable except as noted in HPI & below Physical Exam Physical Exam: General: Awake, alert and oriented x 3. No acute distress. HEENT: Normocephalic, atraumatic. Pupils equal, round and reactive to light and accommodation. Extraocular muscles are intact. Anicteric sclera. Moist mucous membranes. Neck: No JVD. No bruit. Cardiovascular: Regular. Positive S-4. Normal S-1 and S-2. No S-3. 3/6 holosystolic ejection murmur, left sternal border, mid-clavicular line with radiation to the axilla. No rubs. Pulmonary: Coarse breath sounds diffusely with bibasilar crackles Abdomen: Bowel sounds x 4, soft. No rebound, guarding or tenderness. No organomegaly. Extremities: No clubbing, cyanosis or edema. +2 pedal pulses bilaterally. Skin: Warm and dry. Results & Data Vital Signs (Past 12 Hours) Vital Signs Temp Pulse Pulse Resp BP Pulse Ox O2 Del Method 01/12/23 14:39 80 01/12/23 15:30 36.7 C 76 18 120/74 99 Nasal Cannula 01/12/23 11:03 36.7 C 75 18 134/79 99 Nasal Cannula 01/12/23 08:50 Nasal Cannula 01/12/23 08:55 79 01/12/23 06:44 78 01/12/23 07:02 36.6 C 81 18 112/69 98 Nasal Cannula O2 Flow Rate 01/12/23 14:39 01/12/23 15:30 2 01/12/23 11:03 2 01/12/23 08:50 4 01/12/23 08:55 01/12/23 06:44 01/12/23 07:02 2.0
[2023-01-12] MEDS: PEPTAMEN 1.5 CAL 1,000 ML BAG JT SCH (20:06)
[2023-01-12] MEDS: TUBE FEEDING WATER FLUSH JT SCH (20:07)
[2023-01-12 22:08] LABS: BUN Creatinine Ratio 26.2 (10-20); Creatinine Clr Calc Pharmacy 27.5 ml/min; Est GFR (African American) 42.2 ml/min; Est GFR (Non-African American) 36.4 ml/min; Magnesium 1.9 mg/dl (1.7-2.4); Phosphorus 3.6 mg/dl (2.5-4.9); Potassium 3.6 mmol/L (3.5-5.1)
[2023-01-13 04:05] LABS: BUN Creatinine Ratio 34.1 (10-20); Calcium 7.4 mg/dl (8.6-10.3); Creatinine Clr Calc Pharmacy 31.6 ml/min; Est GFR (Non-African American) 43.1 ml/min; Phosphorus 3.6 mg/dl (2.5-4.9); Potassium 3.8 mmol/L (3.5-5.1)
[2023-01-13] MEDS: MAGNESIUM OXIDE 400 MG TAB PO SCH (08:28)
[2023-01-13] MEDS: GABAPENTIN 400 MG CAP PO SCH ×3 (08:28→21:11)
[2023-01-13] MEDS: SERTRALINE HCL 50 MG TABLET PO SCH (08:28)
[2023-01-13] MEDS: CALCIUM CARBONATE 1250MG TAB PO SCH ×3 (08:28→21:11)
[2023-01-13] MEDS: TORSEMIDE 10 MG TAB PO SCH (08:29)
[2023-01-13] MEDS: PANTOprazole 40 MG TAB PO SCH (08:29)
[2023-01-13] MEDS: [UNRECOGNIZED DRUG - REMARK] SCH (08:30)
[2023-01-13] MEDS: TUBE FEEDING WATER FLUSH JT SCH ×2 (08:30→20:57)
[2023-01-13] MEDS: FLUTICASONE/VILANTEROL 100/25MCG 14 PUFFS/INHALER INH SCH (08:30)
[2023-01-13] MEDS: POTASSIUM CHLORIDE CRTAB 20 MEQ TABCR PO SCH ×2 (08:34→21:16)
[2023-01-13] MEDS: CALCIUM GLUCONATE 10% 11,000 MG in SODIUM CHLORIDE 0.9% 1000ML 1,000 ML IV SCH (10:48)
[2023-01-13] MEDS: CALCITRIOL 0.25 MCG CAPSULE PO SCH (10:48)
--- NOTE | 2023-01-13 14:26 | Hospitalist Progress Note ---
Date of Service January 13, 2023 Assessment & Plan (1) Acute on chronic diastolic (congestive) heart failure: (2) SOB (shortness of breath): (3) Osteoarthritis: (4) Swelling: (5) Permanent atrial fibrillation: (6) COPD (chronic obstructive pulmonary disease): (7) History of bariatric surgery: (8) Feeding by G-tube: (9) Tachy-corin syndrome: (10) Hyperlipidemia: (11) Osteoporosis: (12) Depression: (13) Hypocalcemia: Plan 72 year old female presents with SOB at routine lab work appointment. [facility] (On cou[facility]in), pacemaker placement s/p Tachy/corin syndrome, H/O bariatric sx and G-Tube placement for malnourishment. She presented with shortness of breath. Acute on chronic diastolic CHF: Acute hypoxic respite failure Presented with increasing shortness of breath. Hypoxic on nonrebreather; placed on BiPAP FiO2 30% Chest x-ray with mild pulmonary congestion without edema; slight progression from previous studies BNP [address] Haskins's office as outpatient Takes torsemide 40 mg p.o. daily. Most recent ECHO 11/08: EF 55 to 59% with moderate AR/TR, no PHTN, mild grade 1 diastolic dysfunction; Repeat echo during the hospitalization did not show any significant change Chest x-ray from yesterday personally reviewed; shows improvement in pulmonary edema. Plan; Currently started on torsemide 40 mg once daily. Patient used to be on this dose previously. Strict input and output Patient will need two-step oxygen evaluation at discharge. Severe hypocalcemia: Received Prolia injection on 01/03 for osteoporosis Patient reported hand spasm and tremors on admission. Serum calcium of 5.3 ionized calcium 0.62 Patient was given multiple dose of IV calcium gluconate bolus and was placed on IV calcium gluconate drip overnight. Labs personally reviewed ;her calcium improved to 7 with ionized calcium of 1.09. We will discuss with endocrinology regarding home doses of calcium. She is currently started on calcitriol 0.25 mcg and calcium carbonate 1250 3 times a day. Osteoarthritis: Swelling of right wrist: Started 24 hours ago; denies recent falls or trauma Leukocytosis improved. Right hand x-ray indicates soft tissue swelling without fractures and suggests osteoarthritis Reports improvement in her symptoms. Chronic atrial fibrillation: History of tachybradycardia syndrome: Status post pacemaker placement 2019 On chronic Coumadin; compliant with medication Last fall 02/05 Continue warfarin at home dose Malnourishment: History of bariatric surgery 2003: History of gastric fistula 2015: G-tube placement 2021: History of COVID-pneumonia led to G-tube placement PEG tube feeding nightly Peptamen 65 mL/h over 12 hours. Water flush of 150 mL before and after tube feeding Patient reports eating 2 meals per day and adequate oral water intake Tube feeds ordered Chronic Osteoporosis: Chronic back back with radiculopathy Follows with Ortho as outpatient Takes Prolia (last dose in 01/03/2023) Depression: Takes Sertraline and Cymbalta; continue Disposition: PCP: Dr. Kimble CODE STATUS: Full code VTE prophylaxis: Therapeutic on Coumadin Admission and Anticipated Discharge Date Admission Date: January 11, 2023 Subjective Patient seen and examined at bedside. She reports feeling much better today with decreased shortness of breath and tremors. Review of Systems Review of Systems: All systems reviewed & are unremarkable except as noted in Subjective Physical Exam Physical Exam: Neuro: AAOx4, PERRLA, no aphagia, memory changes, CNII-XII grossly intact HEENT: head normocephalic, moist mucus membranes CV: S1/S2, (-) M/G/R, (+) edema right wrist and RLE, cap refill < 3 seconds Resp: Improvement in the bibasilar crackles. GI: Abdomen S/NT/ND, Ax4 bowel sounds, (-) CVA tenderness. LUQ G-Tube Musculoskeletal: 5/5 B/L UE strength, 5/5 B/L LE strength. No gait disturbance Skin: very frail skin. RLE erythema and swelling, open laceration on pettit and dime sized ecchymosis right lateral pettit. Psych: euthymic mood Results & Data Results & Data Vital Signs (Past 12 Hours) Vital Signs Temp Pulse Pulse Resp BP Pulse Ox O2 Del Method 01/13/23 11:12 36.4 C L 61 18 121/73 98 Nasal Cannula 01/13/23 10:33 76 01/13/23 10:27 Room Air 01/13/23 07:54 36.5 C 73 20 113/72 96 Nasal Cannula 01/13/23 03:17 37.4 C 75 18 113/72 97 CPAP 01/13/23 03:13 25 H 99 O2 Flow Rate 01/13/23 11:12 4 01/13/23 10:33 01/13/23 10:27 01/13/23 07:54 2 01/13/23 03:17 01/13/23 03:13 2
[2023-01-13 15:52] LABS: BUN Creatinine Ratio 38.1 (10-20); Calcium 8.3 mg/dl (8.6-10.3); Creatinine Clr Calc Pharmacy 33.8 ml/min; Est GFR (African American) 54.1 ml/min; Est GFR (Non-African American) 46.7 ml/min; Phosphorus 3.4 mg/dl (2.5-4.9); Potassium 4.3 mmol/L (3.5-5.1)
--- NOTE | 2023-01-13 16:37 | Cardiology Progress Note ---
Date of Service January 13, 2023 Assessment & Plan (1) Acute on chronic diastolic (congestive) heart failure: (2) Fractured coccyx: (3) SOB (shortness of breath): (4) Tachy-corin syndrome: (5) Cardiac pacemaker in situ: (6) COPD (chronic obstructive pulmonary disease): (7) A-fib: (8) Atrial fibrillation with rapid ventricular response: Plan Patient presents with significant hypoxia and shortness of breath Physical exam consistent with slight volume overload Permanent A-fib now with rapid ventricular response INR therapeutic Echocardiogram unchanged compared to previous with normal LV systolic function and moderate tricuspid regurgitation We will diurese with IV Lasix twice daily and follow her status clinically 01/12/2023: Patient does not examine is significantly volume overloaded Chest x-ray shows improvement of mild vascular congestion Renal function consistent with intravascular depletion We will give 1 more dose of IV Lasix today Given ongoing hypoxia recommend further pulmonary work-up and possible treatment for COPD exacerbation, will defer to primary team 01/13/23: Pt diuresed. Still on O2, will need 2 step Admission and Anticipated Discharge Date Admission Date: January 11, 2023 Subjective Pt seen and examined. Chart reviewed. Tele reviewed. States that breathing is improving. Review of Systems Review of Systems: All systems reviewed & are unremarkable except as noted in HPI & below Physical Exam Physical Exam: General: Awake, alert and oriented x 3. No acute distress. HEENT: Normocephalic, atraumatic. Pupils equal, round and reactive to light an d accommodation. Extraocular muscles are intact. Anicteric sclera. Moist mucous membranes. Neck: No JVD. No bruit. Cardiovascular: Regular. Positive S-4. Normal S-1 and S-2. No S-3. 3/6 holo systolic ejection murmur, left sternal border, mid-clavicular line with radiation to the axilla. No rubs. Pulmonary: Coarse breath sounds diffusely Abdomen: Bowel sounds x 4, soft. No rebound, guarding or tenderness. No organomegaly. Extremities: No clubbing, cyanosis or edema. +2 pedal pulses bilaterally. Skin: Warm and dry. Results & Data Vital Signs (Past 12 Hours) Vital Signs Temp Pulse Pulse Resp BP Pulse Ox O2 Del Method 01/13/23 15:01 73 01/13/23 11:12 36.4 C L 61 18 121/73 98 Nasal Cannula 01/13/23 10:33 76 01/13/23 10:27 Room Air 01/13/23 07:54 36.5 C 73 20 113/72 96 Nasal Cannula O2 Flow Rate 01/13/23 15:01 01/13/23 11:12 4 01/13/23 10:33 01/13/23 10:27 01/13/23 07:54 2
[2023-01-13] MEDS: WARFARIN SOD 5 MG TAB PO SCH (16:45)
[2023-01-13] MEDS: PEPTAMEN 1.5 CAL 1,000 ML BAG JT SCH (20:58)
[2023-01-14 06:49] LABS: Basophils # (auto) 0.04 K/uL (0-0.2); Basophils % (auto) 0.5 %; Eosinophils # (auto) 1.37 K/uL (0-0.50); Eosinophils % (auto) 17.3 %; Hematocrit (blood only) 28.7 % (37.0-47.0); Hemoglobin 9.4 g/dl (12.0-16.0); Immature Granulocytes # (auto) 0.02 K/uL (0.01-0.20); Immature Granulocytes % (auto) 0.3 %; Lymphocytes # (auto) 1.26 K/uL (1.2-3.4); Lymphocytes % (auto) 15.9 %; Mean Corpuscular Hemoglobin 29.1 pg (25.0-34.0); Mean Corpuscular Hgb Conc 32.8 g/dL (32.0-36.0); Mean Corpuscular Volume 88.9 fL (80.0-100.0); Mean Platelet Volume 9.7 fL (9.4-12.4); Monocytes # (auto) 0.53 K/uL (0.11-0.59); Monocytes % (auto) 6.7 %; Neutrophils % (auto) 59.3 %; Platelet Count 300 K/uL (130-400); RDW Coefficient of Variation 14.8 % (11.5-14.5); RDW Standard Deviation 48.3 fL (36.4-46.3); Red Blood Count 3.23 M/uL (4.20-5.40); White Blood Count 7.92 K/ul (4.8-10.8)
[2023-01-14 07:02] LABS: Albumin Globulin Ratio 1.2 (0.9-2); Albumin Level 3.1 gm/dl (3.4-5.0); BUN Creatinine Ratio 39.3 (10-20); Bilirubin,Total 0.3 mg/dl (0.2-1.0); Calcium 7.5 mg/dl (8.6-10.3); Creatinine Clr Calc Pharmacy 34.7 ml/min; Est GFR (African American) 54.7 ml/min; Est GFR (Non-African American) 47.2 ml/min; Globulin 2.6 gm/dl (2.5-4.0); Potassium 4.1 mmol/L (3.5-5.1); Total Protein 5.7 gm/dl (6.0-8.3)
[2023-01-14 07:23] LABS: INR 3.5 (0.9-1.1); Prothrombin Time 34.4 Seconds (9.0-12.0)
[2023-01-14] MEDS: TUBE FEEDING WATER FLUSH JT SCH ×2 (08:30→20:38)
[2023-01-14] MEDS: [UNRECOGNIZED DRUG - REMARK] SCH (08:30)
[2023-01-14] MEDS: GABAPENTIN 400 MG CAP PO SCH ×3 (09:05→20:39)
[2023-01-14] MEDS: CALCITRIOL 0.25 MCG CAPSULE PO SCH ×2 (09:05→20:39)
[2023-01-14] MEDS: MAGNESIUM OXIDE 400 MG TAB PO SCH (09:05)
[2023-01-14] MEDS: SERTRALINE HCL 50 MG TABLET PO SCH (09:06)
[2023-01-14] MEDS: TORSEMIDE 10 MG TAB PO SCH (09:06)
[2023-01-14] MEDS: PANTOprazole 40 MG TAB PO SCH (09:06)
[2023-01-14] MEDS: CALCIUM CARBONATE 1250MG TAB PO SCH ×3 (09:06→20:39)
[2023-01-14] MEDS: FLUTICASONE/VILANTEROL 100/25MCG 14 PUFFS/INHALER INH SCH (09:07)
[2023-01-14] MEDS: POTASSIUM CHLORIDE CRTAB 20 MEQ TABCR PO SCH ×2 (09:11→20:43)
--- NOTE | 2023-01-14 11:35 | Ultrasound Report ---
RIGHT LOWER EXTREMITY VENOUS DOPPLER HISTORY: Right leg pain. COMPARISON STUDY: None. FINDINGS: There is normal compressibility, flow, and augmentation within the right lower extremity de ep venous system. IMPRESSION: No DVT within the right lower extremity ACT 112: Negative or not required by law. Electronically signed by: Harish Mckeon M.D. 01/14/2023 11:34 AM
--- NOTE | 2023-01-14 11:45 | Cardiology Progress Note ---
Date of Service January 14, 2023 Assessment & Plan (1) Acute on chronic diastolic (congestive) heart failure: (2) Fractured coccyx: (3) SOB (shortness of breath): (4) Tachy-corin syndrome: (5) Cardiac pacemaker in situ: (6) COPD (chronic obstructive pulmonary disease): (7) A-fib: (8) Atrial fibrillation with rapid ventricular response: Plan Patient presents with significant hypoxia and shortness of breath Physical exam consistent with slight volume overload Permanent A-fib now with rapid ventricular response INR therapeutic Echocardiogram unchanged compared to previous with normal LV systolic function and moderate tricuspid regurgitation We will diurese with IV Lasix twice daily and follow her status clinically 01/12/2023: Patient does not examine is significantly volume overloaded Chest x-ray shows improvement of mild vascular congestion Renal function consistent with intravascular depletion We will give 1 more dose of IV Lasix today Given ongoing hypoxia recommend further pulmonary work-up and possible treatment for COPD exacerbation, will defer to primary team 01/13/23: Pt diuresed. Still on O2, will need 2 step 01/14/2023: Patient continues to diurese but still requiring supplemental O2 We will defer further management to primary team but would consider pulmonary evaluation We will sign off, please call with questions or concerns Admission and Anticipated Discharge Date Admission Date: January 11, 2023 Subjective Pt seen and examined. Chart reviewed. Tele reviewed. States that breathing is improving. Review of Systems Review of Systems: All systems reviewed & are unremarkable except as noted in HPI & below Physical Exam Physical Exam: General: Awake, alert and oriented x 3. No acute distress. HEENT: Normocephalic, atraumatic. Pupils equal, round and reactive to light and accommodation. Extraocular muscles are intact. Anicteric sclera. Moist mucous membranes. Neck: No JVD. No bruit. Cardiovascular: Regular. Positive S-4. Normal S-1 and S-2. No S-3. 3/6 holosystolic ejection murmur, left sternal border, mid-clavicular line with radiation to the axilla. No rubs. Pulmonary: Coarse breath sounds diffusely Abdomen: Bowel sounds x 4, soft. No rebound, guarding or tenderness. No organomegaly. Extremities: No clubbing, cyanosis or edema. +2 pedal pulses bilaterally. Skin: Warm and dry. Results & Data Vital Signs (Past 12 Hours) Vital Signs Temp Pulse Pulse Resp BP BP Pulse Ox 01/14/23 10:56 36.5 C 62 16 116/74 92 01/14/23 10:08 76 01/14/23 08:20 01/14/23 07:59 36.6 C 84 18 125/78 99 01/14/23 04:00 72 17 98 01/14/23 03:19 36.7 C 74 18 126/79 100 01/14/23 00:26 82 O2 Del Method O2 Flow Rate 01/14/23 10:56 Nasal Cannula 2.0 01/14/23 10:08 01/14/23 08:20 Room Air 01/14/23 07:59 CPAP 01/14/23 04:00 2 01/14/23 03:19 BiPAP 01/14/23 00:26
--- NOTE | 2023-01-14 12:05 | Hospitalist Progress Note ---
Date of Service January 14, 2023 Assessment & Plan (1) Acute on chronic diastolic (congestive) heart failure: (2) SOB (shortness of breath): (3) Osteoarthritis: (4) Swelling: (5) Permanent atrial fibrillation: (6) COPD (chronic obstructive pulmonary disease): (7) History of bariatric surgery: (8) Feeding by G-tube: (9) Tachy-corin syndrome: (10) Hyperlipidemia: (11) Osteoporosis: (12) Depression: (13) Hypocalcemia: Plan 72 year old female presents with SOB at routine lab work appointment. New onset [facility] swelling[facility] (On coumadin), pacemaker placement s/p Tachy/corin syndrome, H/O bariatric sx and G-Tube placement for malnourishment. She presented with shortness of breath. Acute on chronic diastolic CHF: Acute hypoxic respiratory failure Presented with increasing shortness of breath. Hypoxic on nonrebreather; placed on BiPAP FiO2 30% Chest x-ray with mild pulmonary congestion without edema; slight progression from previous studies BNP [address] Haskins's office as outpatient Takes torsemide 40 mg p.o. daily. Most recent ECHO 11/08: EF 55 to 59% with moderate AR/TR, no PHTN, mild grade 1 diastolic dysfunction; Repeat echo during the hospitalization did not show any significant change Chest x-ray from yesterday personally reviewed; shows improvement in pulmonary edema. Plan; Currently on torsemide 40 mg once daily. Labs reviewed from today's; creatinine downtrending. Urine output is 3700 cc today; will continue on current dose Strict EMMA's. Right lower extremity venous duplex done to rule out DVT. Severe hypocalcemia: Received Prolia injection on 01/03 for osteoporosis Patient reported hand spasm and tremors on admission. Serum calcium of 5.3 ionized calcium 0.62 Patient was given multiple dose of IV calcium gluconate bolus and was placed on IV calcium gluconate drip overnight. Labs personally reviewed ;her calcium improved to 7 Discussed with endocrinology Geronimo White regarding dosing of calcium supplement. Patient is started on calcitriol 0.25 mg twice daily and calcium carbonate 1250 mg 3 times a day. Osteoarthritis: Swelling of right wrist: Started 24 hours ago prior to presentation; denies recent falls or trauma Leukocytosis improved. Right hand x-ray indicates soft tissue swelling without fractures and suggests osteoarthritis Reports improvement in her symptoms. Chronic atrial fibrillation: History of tachybradycardia syndrome: Status post pacemaker placement 2019 On chronic Coumadin; compliant with medication Last fall 02/05 INR reviewed; slightly supratherapeutic. Continue current dose. Malnourishment: History of bariatric surgery 2003: History of gastric fistula 2015: G-tube placement 2021: History of COVID-pneumonia led to G-tube placement PEG tube feeding nightly Peptamen 65 mL/h over 12 hours. Water flush of 150 mL before and after tube feeding Patient reports eating 2 meals per day and adequate oral water intake Tube feeds ordered Chronic Osteoporosis: Chronic back back with radiculopathy Follows with Ortho as outpatient Takes Prolia (last dose in 01/03/2023) Depression: Takes Sertraline and Cymbalta; continue Disposition: PCP: Dr. Kimble CODE STATUS: Full code VTE prophylaxis: Therapeutic on Coumadin DispoPT OT evaluation done; recommend subacute rehab. Case management on board. Please note the above document was generated using voice recognition software. It may contain grammatical, syntax or spelling errors. Any formal questions or concerns about the content, text or information contained within the body of this dictation should be directly addressed to the provider for clarification Admission and Anticipated Discharge Date Admission Date: January 11, 2023 Subjective Patient continues to complain of increasing shortness of breath on exertion. Urine output of 3700 mL in last 24 hours Review of Systems Review of Systems: All systems reviewed & are unremarkable except as noted in Subjective Physical Exam Physical Exam: Neuro: AAOx4, PERRLA, no aphagia, memory changes, CNII-XII grossly intact HEENT: head normocephalic, moist mucus membranes CV: S1/S2, (-) M/G/R, (+) edema right wrist and RLE, cap refill < 3 seconds Resp: Minimal bilateral basilar crackles GI: Abdomen S/NT/ND, Ax4 bowel sounds, (-) CVA tenderness. LUQ G-Tube Musculoskeletal: 5/5 B/L UE strength, 5/5 B/L LE strength. No gait disturbance Skin: very frail skin. RLE erythema and swelling, open laceration on pettit and dime sized ecchymosis right lateral pettit. Psych: euthymic mood Results & Data Results & Data Vital Signs (Past 12 Hours) Vital Signs Temp Pulse Pulse Resp BP BP Pulse Ox 01/14/23 10:56 36.5 C 62 16 116/74 92 01/14/23 10:08 76 01/14/23 08:20 01/14/23 07:59 36.6 C 84 18 125/78 99 01/14/23 04:00 72 17 98 01/14/23 03:19 36.7 C 74 18 126/79 100 01/14/23 00:26 82 O2 Del Method O2 Flow Rate 01/14/23 10:56 Nasal Cannula 2.0 01/14/23 10:08 01/14/23 08:20 Room Air 01/14/23 07:59 CPAP 01/14/23 04:00 2 01/14/23 03:19 BiPAP 01/14/23 00:26 Laboratory Results Laboratory Results WBC 7.92 K/ul (4.8-10.8) 01/14/23 06:08 RBC 3.23 M/uL (4.20-5.40) L 01/14/23 06:08 Hgb 9.4 g/dl (12.0-16.0) L 01/14/23 06:08 Hct 28.7 % (37.0-47.0) L 01/14/23 06:08 MCV 88.9 fL (80.0-100.0) 01/14/23 06:08 MCH 29.1 pg (25.0-34.0) 01/14/23 06:08 MCHC 32.8 g/dL (32.0-36.0) 01/14/23 06:08 RDW Std Deviation 48.3 fL (36.4-46.3) H 01/14/23 06:08 RDW Coeff of Saman 14.8 % (11.5-14.5) H 01/14/23 06:08 Plt Count 300 K/uL (130-400) 01/14/23 06:08 MPV 9.7 fL (9.4-12.4) 01/14/23 06:08 Immature Gran % (Auto) 0.3 % 01/14/23 06:08 Neut % (Auto) 59.3 % 01/14/23 06:08 Lymph % (Auto) 15.9 % 01/14/23 06:08 [place] % (Auto) 6.7 % 01/14/23 06:08 Eos % (Auto) 17.3 % 01/14/23 06:08 Baso % (Auto) 0.5 % 01/14/23 06:08 Neut # (Auto) 4.70 K/uL (1.40-6.50) 01/14/23 06:08 Lymph # (Auto) 1.26 K/uL (1.2-3.4) 01/14/23 06:08 [place] # (Auto) 0.53 K/uL (0.11-0.59) 01/14/23 06:08 Eos # (Auto) 1.37 K/uL (0-0.50) H 01/14/23 06:08 Baso # (Auto) 0.04 K/uL (0-0.2) 01/14/23 06:08 Immature Gran # (Auto) 0.02 K/uL (0.01-0.20) 01/14/23 06:08 PT 34.4 Seconds (9.0-12.0) H 01/14/23 06:08 INR 3.5 (0.9-1.1) H 01/14/23 06:08 Sodium 139 mmol/L (136-145) 01/14/23 06:08 Potassium 4.1 mmol/L (3.5-5.1) 01/14/23 06:08 Chloride 103 mmol/L (98-107) 01/14/23 06:08 Carbon Dioxide 30 mmol/L (21-32) 01/14/23 06:08 Anion Gap 6 (3-11) 01/14/23 06:08 BUN 46 mg/dl (6-23) H 01/14/23 06:08 Creatinine 1.17 mg/dl (0.6-1.2) 01/14/23 06:08 Est Cr Clr Drug Dosing 34.7 ml/min 01/14/23 06:08 Est GFR ( Amer) 54.7 ml/min 01/14/23 06:08 Est GFR (Non-Af Amer) 47.2 ml/min 01/14/23 06:08 BUN/Creatinine Ratio 39.3 (10-20) H 01/14/23 06:08 Glucose 89 mg/dl (70-99(Fasting)) 01/14/23 06:08 Calcium 7.5 mg/dl (8.6-10.3) L 01/14/23 06:08 Ionized Calcium 1.09 mmol/L (1.12-1.32) L 01/13/23 12:58 Phosphorus 3.4 mg/dl (2.5-4.9) 01/13/23 10:48 Magnesium 2.0 mg/dl (1.7-2.4) 01/13/23 03:21 Total Bilirubin 0.3 mg/dl (0.2-1.0) 01/14/23 06:08 AST 23 U/L (13-39) 01/14/23 06:08 ALT 22 U/L (7-52) 01/14/23 06:08 Alkaline Phosphatase 94 U/L (34-104) 01/14/23 06:08 Troponin I High Sens 22.0 pg/ml (0-14) H 01/11/23 14:23 B-Natriuretic Peptide 200 pg/ml (0-100) H 01/11/23 10:37 Total Protein 5.7 gm/dl (6.0-8.3) L 01/14/23 06:08 Albumin 3.1 gm/dl (3.4-5.0) L 01/14/23 06:08 Globulin 2.6 gm/dl (2.5-4.0) 01/14/23 06:08 Albumin/Globulin Ratio 1.2 (0.9-2) 01/14/23 06:08 Lipase 45 U/L (11-82) 01/11/23 10:37 25-OH Vitamin D Total 22.1 ng/ml (30-100) L 01/12/23 09:37 Procalcitonin 0.14 ng/ml (0-0.5) 01/12/23 06:34 TSH 4.169 uIu/ml (0.300-4.500) 01/11/23 10:37 PTH Intact 422.6 pg/ml (12.0-88.0) H 01/12/23 09:37 Urine Color Yellow 01/11/23 15:01 Urine Appearance Clear (Clear) 01/11/23 15:01 Urine pH 5.0 (4.5-7.5) 01/11/23 15:01 Ur Specific [place] 1.018 (1.000-1.030) 01/11/23 15:01 Urine Protein Negative (Negative) 01/11/23 15:01 Urine Glucose (UA) Negative (Negative) 01/11/23 15:01 Urine Ketones 1+ (Negative) H 01/11/23 15:01 Urine Blood Negative (Negative) 01/11/23 15:01 Urine Nitrite Negative (Negative) 01/11/23 15:01 Urine Bilirubin Negative (Negative) 01/11/23 15:01 Urine Urobilinogen Negative (Negative) 01/11/23 15:01 Ur Leukocyte Esterase Negative (Negative) 01/11/23 15:01 SARS-CoV-2 (PCR) NEGATIVE (Negative) 01/11/23 12:29 Influenza Type A (PCR) Negative (Neg) 01/11/23 12:29 Influenza Type B (PCR) Negative (Neg) 01/11/23 12:29 RSV (RT-PCR) Negative (Neg) 01/11/23 12:29 Impressions Hand X-Ray 01/11/23 11:08 XR hand RT min 3V routine HISTORY: 72 years-old Female r hand pain acute pain and swelling of the right hand COMPARISON: None TECHNIQUE: 3 views of the right hand FINDINGS: Demineralized appearance the bones. Study is limited secondary to positioning of the first digit. There is severe joint space narrowing within the second through fifth distal interphalangeal joints with suggestion of chronic articular erosions and subcortical cystic changes. Otherwise multifocal mild to moderate osteoarthritis. No acute fracture, dislocation or opaque foreign body. Mild diffuse soft tissue swelling of the wrist, distal forearm and hand. IMPRESSION: 1. Soft tissue swelling without acute osseous abnormality. 2. Findings suggestive of erosive osteoarthritis of the distal interphalangeal joints. ACT 112: Negative or not required by law. The above report was generated using voice recognition software. It may contain grammatical, syntax or spelling errors. Electronically signed by: Roe Bejarano M.D. 01/11/2023 11:33 AM Chest X-Ray 01/12/23 08:00 SINGLE VIEW CHEST CLINICAL HISTORY: Dyspnea FINDINGS: An AP, portable, upright chest radiograph is compared to study dated 01/11/2023. A 2-lead cardiac pacemaker is unchanged in position. The heart is mildly enlarged. Pulmonary vascular congestion has improved from yesterday. The lungs and pleural spaces are clear noting mild bibasilar scarring/atelectasis. No pneumothorax is seen. The skeletal structures are osteopenic. The bony thorax is grossly intact. Cholecystectomy clips are noted in the right upper quadrant. IMPRESSION: 1. Cardiomegaly and cardiac pacemaker. Pulmonary vascular congestion has improved from yesterday. 2. No airspace consolidation or pleural effusion is identified. ACT 112: Negative or not required by law. Electronically signed by: Jason Bergeron M.D. 01/12/2023 9:56 AM Venous Doppler Study 01/14/23 10:30 RIGHT LOWER EXTREMITY VENOUS DOPPLER HISTORY: Right leg pain. COMPARISON STUDY: None. FINDINGS: There is normal compressibility, flow, and augmentation within the right lower extremity deep venous system. IMPRESSION: No DVT within the right lower extremity ACT 112: Negative or not required by law. Electronically signed by: Harish Mckeon M.D. 01/14/2023 11:34 AM
[2023-01-14] MEDS: WARFARIN SOD 2.5 MG TAB PO SCH (16:10)
[2023-01-14] MEDS: PEPTAMEN 1.5 CAL 1,000 ML BAG JT SCH (20:58)
[2023-01-14] MEDS ORDERED: diphenhydrAMINE Capsule 25 MG CAP PO ONE (23:18)
[2023-01-14] MEDS ORDERED: methylPREDNISolone 50 MG in SYRINGE 0 ML IV STA (23:22)
[2023-01-15 07:41] LABS: INR 3.3 (0.9-1.1); Prothrombin Time 32.7 Seconds (9.0-12.0)
[2023-01-15] MEDS: CALCIUM CARBONATE 1250MG TAB PO SCH ×3 (08:50→20:11)
[2023-01-15] MEDS: PANTOprazole 40 MG TAB PO SCH (08:51)
[2023-01-15] MEDS: DIGOXIN 0.125 MG TAB PO SCH (08:51)
[2023-01-15] MEDS: CALCITRIOL 0.25 MCG CAPSULE PO SCH ×2 (08:51→20:10)
[2023-01-15] MEDS: MAGNESIUM OXIDE 400 MG TAB PO SCH (08:51)
[2023-01-15] MEDS: TORSEMIDE 10 MG TAB PO SCH (08:51)
[2023-01-15] MEDS: [UNRECOGNIZED DRUG - REMARK] SCH (08:52)
[2023-01-15] MEDS: GABAPENTIN 400 MG CAP PO SCH ×3 (08:52→20:11)
[2023-01-15] MEDS: POTASSIUM CHLORIDE CRTAB 20 MEQ TABCR PO SCH ×2 (08:55→20:12)
[2023-01-15] MEDS: TUBE FEEDING WATER FLUSH JT SCH ×2 (08:55→20:09)
[2023-01-15] MEDS: SERTRALINE HCL 50 MG TABLET PO SCH (10:38)
[2023-01-15] MEDS: FLUTICASONE/VILANTEROL 100/25MCG 14 PUFFS/INHALER INH SCH (10:59)
--- NOTE | 2023-01-15 11:41 | Hospitalist Progress Note ---
Date of Service January 15, 2023 Assessment & Plan (1) Acute on chronic diastolic (congestive) heart failure: (2) SOB (shortness of breath): (3) Osteoarthritis: (4) Swelling: (5) Permanent atrial fibrillation: (6) COPD (chronic obstructive pulmonary disease): (7) History of bariatric surgery: (8) Feeding by G-tube: (9) Tachy-corin syndrome: (10) Hyperlipidemia: (11) Osteoporosis: (12) Depression: (13) Hypocalcemia: Plan 72 year old female presents with SOB at routine lab work appointment. New onset right wrist swelling. [facility], chronic AF (On coumadin), pacemaker placement s/p Tachy/corin syndrome, H/O bariatric sx and G-Tube placement for malnourishment. She presented with shortness of breath. Acute on chronic diastolic CHF: Acute hypoxic respiratory failure Presented with increasing shortness of breath. Hypoxic on nonrebreather; placed on BiPAP FiO2 30% Chest x-ray with mild pulmonary congestion without edema; slight progression from previous studies BNP [address] Haskins's office as outpatient Takes torsemide 40 mg p.o. daily. Most recent ECHO 11/08: EF 55 to 59% with moderate AR/TR, no PHTN, mild grade 1 diastolic dysfunction; Repeat echo during the hospitalization did not show any significant change Repeat x-ray personally reviewed; shows improvement in pulmonary edema. Plan; Given increasing shortness of breath; will give her extra dose of IV Lasix 40 mg once. Continue on torsemide. Continue to monitor her urine output closely. Strict EMMA's. Right lower extremity venous duplex done to rule out DVT. Severe hypocalcemia: Received Prolia injection on 01/03 for osteoporosis Patient reported hand spasm and tremors on admission. Serum calcium of 5.3 ionized calcium 0.62 Patient was given multiple dose of IV calcium gluconate bolus and was placed on IV calcium gluconate drip overnight. Yesterday's lab Labs personally reviewed ;her calcium improved to 7. Today's labs are ordered; pending. Discussed with endocrinology Geronimo White regarding dosing of calcium supplement. Patient is started on calcitriol 0.25 mg twice daily and calcium carbonate 1250 mg 3 times a day. Osteoarthritis: Swelling of right wrist: Started 24 hours ago prior to presentation; denies recent falls or trauma Leukocytosis improved. Right hand x-ray indicates soft tissue swelling without fractures and suggests osteoarthritis Reports improvement in her symptoms. Chronic atrial fibrillation: History of tachybradycardia syndrome: Status post pacemaker placement 2018 On chronic Coumadin; compliant with medication Last fall 02/05 INR personally reviewed; slightly supratherapeutic. Continue current dose. Malnourishment: History of bariatric surgery 2003: History of gastric fistula 2015: G-tube placement 2021: History of COVID-pneumonia led to G-tube placement PEG tube feeding nightly Peptamen 65 mL/h over 12 hours. Water flush of 150 mL before and after tube feeding Patient reports eating 2 meals per day and adequate oral water intake Tube feeds ordered Chronic Osteoporosis: Chronic back back with radiculopathy Follows with Ortho as outpatient Takes Prolia (last dose in 01/03/2023) Depression: Takes Sertraline and Cymbalta; continue Disposition: PCP: Dr. Kimble CODE STATUS: Full code VTE prophylaxis: Therapeutic on Coumadin DispoPT OT evaluation done; recommend subacute rehab. Case management on board. Please note the above document was generated using voice recognition software. It may contain grammatical, syntax or spelling errors. Any formal questions or concerns about the content, text or information contained within the body of this dictation should be directly addressed to the provider for clarification Admission and Anticipated Discharge Date Admission Date: January 11, 2023 Subjective Patient seen and examined at bedside she reports continued shortness of breath minimal exertion. She continues to require 2 L of oxygen by nasal cannula. Review of Systems Review of Systems: All systems reviewed & are unremarkable except as noted in Subjective Physical Exam Physical Exam: Neuro: AAOx4, PERRLA, no aphagia, memory changes, CNII-XII grossly intact HEENT: head normocephalic, moist mucus membranes CV: S1/S2, (-) M/G/R, (+) edema right wrist and RLE, cap refill < 3 seconds Resp: Minimal bilateral basilar crackles GI: Abdomen S/NT/ND, Ax4 bowel sounds, (-) CVA tenderness. LUQ G-Tube Musculoskeletal: 5/5 B/L UE strength, 5/5 B/L LE strength. No gait disturbance Skin: very frail skin. RLE erythema and swelling, open laceration on pettit and dime sized ecchymosis right lateral pettit. Psych: euthymic mood Results & Data Results & Data Vital Signs (Past 12 Hours) Vital Signs Temp Pulse Pulse Pulse Resp BP BP 01/15/23 10:32 01/15/23 08:51 95 H 01/15/23 07:46 94 H 01/15/23 07:38 36.6 C 98 H 18 144/82 H 01/15/23 03:24 36.7 C 91 H 16 106/65 01/15/23 00:35 96 H 01/14/23 23:45 36.5 C 96 H 18 121/71 Pulse Ox O2 Del Method O2 Flow Rate 01/15/23 10:32 Nasal Cannula 2 01/15/23 08:51 01/15/23 07:46 01/15/23 07:38 96 BiPAP 01/15/23 03:24 97 BiPAP 2 01/15/23 00:35 01/14/23 23:45 100 BiPAP 2 Laboratory Results Laboratory Results WBC 7.92 K/ul (4.8-10.8) 01/14/23 06:08 RBC 3.23 M/uL (4.20-5.40) L 01/14/23 06:08 Hgb 9.4 g/dl (12.0-16.0) L 01/14/23 06:08 Hct 28.7 % (37.0-47.0) L 01/14/23 06:08 MCV 88.9 fL (80.0-100.0) 01/14/23 06:08 MCH 29.1 pg (25.0-34.0) 01/14/23 06:08 MCHC 32.8 g/dL (32.0-36.0) 01/14/23 06:08 RDW Std Deviation 48.3 fL (36.4-46.3) H 01/14/23 06:08 RDW Coeff of Saman 14.8 % (11.5-14.5) H 01/14/23 06:08 Plt Count 300 K/uL (130-400) 01/14/23 06:08 MPV 9.7 fL (9.4-12.4) 01/14/23 06:08 Immature Gran % (Auto) 0.3 % 01/14/23 06:08 Neut % (Auto) 59.3 % 01/14/23 06:08 Lymph % (Auto) 15.9 % 01/14/23 06:08 [place] % (Auto) 6.7 % 01/14/23 06:08 Eos % (Auto) 17.3 % 01/14/23 06:08 Baso % (Auto) 0.5 % 01/14/23 06:08 Neut # (Auto) 4.70 K/uL (1.40-6.50) 01/14/23 06:08 Lymph # (Auto) 1.26 K/uL (1.2-3.4) 01/14/23 06:08 [place] # (Auto) 0.53 K/uL (0.11-0.59) 01/14/23 06:08 Eos # (Auto) 1.37 K/uL (0-0.50) H 01/14/23 06:08 Baso # (Auto) 0.04 K/uL (0-0.2) 01/14/23 06:08 Immature Gran # (Auto) 0.02 K/uL (0.01-0.20) 01/14/23 06:08 PT 32.7 Seconds (9.0-12.0) H 01/15/23 06:26 INR 3.3 (0.9-1.1) H 01/15/23 06:26 Sodium 139 mmol/L (136-145) 01/14/23 06:08 Potassium 4.1 mmol/L (3.5-5.1) 01/14/23 06:08 Chloride 103 mmol/L (98-107) 01/14/23 06:08 Carbon Dioxide 30 mmol/L (21-32) 01/14/23 06:08 Anion Gap 6 (3-11) 01/14/23 06:08 BUN 46 mg/dl (6-23) H 01/14/23 06:08 Creatinine 1.17 mg/dl (0.6-1.2) 01/14/23 06:08 Est Cr Clr Drug Dosing 34.7 ml/min 01/14/23 06:08 Est GFR ( Amer) 54.7 ml/min 01/14/23 06:08 Est GFR (Non-Af Amer) 47.2 ml/min 01/14/23 06:08 BUN/Creatinine Ratio 39.3 (10-20) H 01/14/23 06:08 Glucose 89 mg/dl (70-99(Fasting)) 01/14/23 06:08 Calcium 7.5 mg/dl (8.6-10.3) L 01/14/23 06:08 Ionized Calcium 1.09 mmol/L (1.12-1.32) L 01/13/23 12:58 Phosphorus 3.4 mg/dl (2.5-4.9) 01/13/23 10:48 Magnesium 2.0 mg/dl (1.7-2.4) 01/13/23 03:21 Total Bilirubin 0.3 mg/dl (0.2-1.0) 01/14/23 06:08 AST 23 U/L (13-39) 01/14/23 06:08 ALT 22 U/L (7-52) 01/14/23 06:08 Alkaline Phosphatase 94 U/L (34-104) 01/14/23 06:08 Troponin I High Sens 22.0 pg/ml (0-14) H 01/11/23 14:23 B-Natriuretic Peptide 200 pg/ml (0-100) H 01/11/23 10:37 Total Protein 5.7 gm/dl (6.0-8.3) L 01/14/23 06:08 Albumin 3.1 gm/dl (3.4-5.0) L 01/14/23 06:08 Globulin 2.6 gm/dl (2.5-4.0) 01/14/23 06:08 Albumin/Globulin Ratio 1.2 (0.9-2) 01/14/23 06:08 Lipase 45 U/L (11-82) 01/11/23 10:37 25-OH Vitamin D Total 22.1 ng/ml (30-100) L 01/12/23 09:37 Procalcitonin 0.14 ng/ml (0-0.5) 01/12/23 06:34 TSH 4.169 uIu/ml (0.300-4.500) 01/11/23 10:37 PTH Intact 422.6 pg/ml (12.0-88.0) H 01/12/23 09:37 Urine Color Yellow 01/11/23 15:01 Urine Appearance Clear (Clear) 01/11/23 15:01 Urine pH 5.0 (4.5-7.5) 01/11/23 15:01 Ur Specific Buena 1.018 (1.000-1.030) 01/11/23 15:01 Urine Protein Negative (Negative) 01/11/23 15:01 Urine Glucose (UA) Negative (Negative) 01/11/23 15:01 Urine Ketones 1+ (Negative) H 01/11/23 15:01 Urine Blood Negative (Negative) 01/11/23 15:01 Urine Nitrite Negative (Negative) 01/11/23 15:01 Urine Bilirubin Negative (Negative) 01/11/23 15:01 Urine Urobilinogen Negative (Negative) 01/11/23 15:01 Ur Leukocyte Esterase Negative (Negative) 01/11/23 15:01 SARS-CoV-2 (PCR) NEGATIVE (Negative) 01/11/23 12:29 Influenza Type A (PCR) Negative (Neg) 01/11/23 12:29 Influenza Type B (PCR) Negative (Neg) 01/11/23 12:29 RSV (RT-PCR) Negative (Neg) 01/11/23 12:29 Impressions Hand X-Ray 01/11/23 11:08 XR hand RT min 3V routine HISTORY: 72 years-old Female r hand pain acute pain and swelling of the right hand COMPARISON: None TECHNIQUE: 3 views of the right hand FINDINGS: Demineralized appearance the bones. Study is limited secondary to positioning of the first digit. There is severe joint space narrowing within the second through fifth distal interphalangeal joints with suggestion of chronic articular erosions and subcortical cystic changes. Otherwise multifocal mild to moderate osteoarthritis. No acute fracture, dislocation or opaque foreign body. Mild diffuse soft tissue swelling of the wrist, distal forearm and hand. IMPRESSION: 1. Soft tissue swelling without acute osseous abnormality. 2. Findings suggestive of erosive osteoarthritis of the distal interphalangeal joints. ACT 112: Negative or not required by law. The above report was generated using voice recognition software. It may contain grammatical, syntax or spelling errors. Electronically signed by: Roe Bejarano M.D. 01/11/2023 11:33 AM Chest X-Ray 01/12/23 08:00 SINGLE VIEW CHEST CLINICAL HISTORY: Dyspnea FINDINGS: An AP, portable, upright chest radiograph is compared to study dated 01/11/2023. A 2-lead cardiac pacemaker is unchanged in position. The heart is mildly enlarged. Pulmonary vascular congestion has improved from yesterday. The lungs and pleural spaces are clear noting mild bibasilar scarring/atelectasis. No pneumothorax is seen. The skeletal structures are osteopenic. The bony thorax is grossly intact. Cholecystectomy clips are noted in the right upper quadrant. IMPRESSION: 1. Cardiomegaly and cardiac pacemaker. Pulmonary vascular congestion has improved from yesterday. 2. No airspace consolidation or pleural effusion is identified. ACT 112: Negative or not required by law. Electronically signed by: Jason Bergeron M.D. 01/12/2023 9:56 AM Venous Doppler Study 01/14/23 10:30 RIGHT LOWER EXTREMITY VENOUS DOPPLER HISTORY: Right leg pain. COMPARISON STUDY: None. FINDINGS: There is normal compressibility, flow, and augmentation within the right lower extremity deep venous system. IMPRESSION: No DVT within the right lower extremity ACT 112: Negative or not required by law. Electronically signed by: Harish Mckeon M.D. 01/14/2023 11:34 AM
[2023-01-15 12:16] LABS: Albumin Globulin Ratio 1.2 (0.9-2); Albumin Level 3.7 gm/dl (3.4-5.0); BUN Creatinine Ratio 45.2 (10-20); Bilirubin,Total 0.4 mg/dl (0.2-1.0); Calcium 7.7 mg/dl (8.6-10.3); Creatinine Clr Calc Pharmacy 35.2 ml/min; Est GFR (African American) 55.8 ml/min; Est GFR (Non-African American) 48.2 ml/min; Potassium 4.8 mmol/L (3.5-5.1); Total Protein 6.7 gm/dl (6.0-8.3)
[2023-01-15] MEDS: FUROSEMIDE 40 MG/4 ML VIAL IV SCH (14:52)
[2023-01-15] MEDS: WARFARIN SOD 2.5 MG TAB PO SCH (15:58)
[2023-01-15] MEDS ORDERED: diphenhydrAMINE 50 MG/ML VIAL IV STA (19:48)
[2023-01-16 06:07] LABS: Basophils # (auto) 0.03 K/uL (0-0.2); Basophils % (auto) 0.3 %; Eosinophils # (auto) 0.71 K/uL (0-0.50); Eosinophils % (auto) 7.1 %; Hematocrit (blood only) 30.7 % (37.0-47.0); Immature Granulocytes # (auto) 0.03 K/uL (0.01-0.20); Immature Granulocytes % (auto) 0.3 %; Lymphocytes # (auto) 1.34 K/uL (1.2-3.4); Lymphocytes % (auto) 13.3 %; Mean Corpuscular Hemoglobin 28.7 pg (25.0-34.0); Mean Corpuscular Hgb Conc 32.6 g/dL (32.0-36.0); Mean Corpuscular Volume 88.2 fL (80.0-100.0); Neutrophils # (auto) 7.36 K/uL (1.40-6.50); Platelet Count 330 K/uL (130-400); RDW Coefficient of Variation 14.8 % (11.5-14.5); RDW Standard Deviation 47.6 fL (36.4-46.3); Red Blood Count 3.48 M/uL (4.20-5.40); White Blood Count 10.07 K/ul (4.8-10.8)
[2023-01-16 06:36] LABS: Albumin Globulin Ratio 1.3 (0.9-2); Albumin Level 3.6 gm/dl (3.4-5.0); BUN Creatinine Ratio 48.7 (10-20); Bilirubin,Total 0.3 mg/dl (0.2-1.0); Creatinine Clr Calc Pharmacy 35.8 ml/min; Est GFR (Non-African American) 49.2 ml/min; Globulin 2.8 gm/dl (2.5-4.0); Total Protein 6.4 gm/dl (6.0-8.3)
[2023-01-16 06:56] LABS: INR 3.5 (0.9-1.1); Prothrombin Time 34.9 Seconds (9.0-12.0)
[2023-01-16] MEDS: FLUTICASONE/VILANTEROL 100/25MCG 14 PUFFS/INHALER INH SCH (08:07)
[2023-01-16] MEDS: DIGOXIN 0.125 MG TAB PO SCH (08:08)
[2023-01-16] MEDS: POTASSIUM CHLORIDE CRTAB 20 MEQ TABCR PO SCH (08:08)
[2023-01-16] MEDS: MAGNESIUM OXIDE 400 MG TAB PO SCH (08:08)
[2023-01-16] MEDS: SERTRALINE HCL 50 MG TABLET PO SCH (08:08)
[2023-01-16] MEDS: GABAPENTIN 400 MG CAP PO SCH ×2 (08:08→13:10)
[2023-01-16] MEDS: PANTOprazole 40 MG TAB PO SCH (08:08)
[2023-01-16] MEDS: CALCITRIOL 0.25 MCG CAPSULE PO SCH (08:08)
[2023-01-16] MEDS: FUROSEMIDE 40 MG/4 ML VIAL IV SCH (08:08)
[2023-01-16] MEDS: TUBE FEEDING WATER FLUSH JT SCH (08:10)
[2023-01-16] MEDS: CALCIUM CARBONATE 1250MG TAB PO SCH ×2 (08:10→13:10)
[2023-01-16] MEDS: [UNRECOGNIZED DRUG - REMARK] SCH (08:10)
--- NOTE | 2023-01-16 15:22 | Discharge Summary ---
Date of Service January 16, 2023 Admission HPI Per Admitting Provider Ms. Andra Higgins is a 72-year-old female that presented to the [facility] via EMS after her scheduled appointment at [facility] where she presented for a routine INR check and evaluation of right wrist swelling. At the clinic she was noted to be hypoxic with increased shortness of breath. Her SPO2 measured 80% and she was placed on 4 L nasal cannula without improvement. Upon arrival to the ED her SPO2 was 85% and she was placed on nonrebreather and subsequently placed on BiPAP. Patient denies orthopnea or any recent illness or cough. Patient is a non-smoker and denies alcohol or recreational drug use. She reports using her albuterol rescue inhaler at least daily. She reports being compliant with all of her medications however did not take any of her medications this morning. Patient has a complex medical history that includes tachybradycardia syndrome status post pacemaker placement 2018, diastolic CHF, bariatric surgery 2003, gastric fistula surgery 2014 with Gtube placement in 2021 with chronic tube feedings, A-fib with RVR on chronic Coumadin, COPD, anemia, depression, hyperlipidemia and GERD. While she does not use CPAP now she does report having used it in the past. A right hand x-ray indicated swelling related to osteoarthritis without fractures. Soft tissue ultrasound being performed during my exam. Slight leukocytosis WBC 13.22, calcium 5.3 which was replaced in the ED with calcium gluconate. Slight bump in troponin 21.9; will trend x1 however do not suspect ACS, rather ischemic demand. Repeat chest x-ray in the a.m. Patient is followed by Dr. Haskins as an outpatient for management of chronic diastolic heart failure and her last appointment was December 10, 2022. Her most recent echocardiogram was October 2022 EF 55 to 59%, mild AR, mild TR, no pulmonary hypertension but notable mild grade 1 diastolic dysfunction. Per review of EMR she does report intermittent shortness of breath and uses her inhaler more frequently. Her torsemide dose has been increased over the past few months for short timeframe but is now back to her daily baseline of 40 mg daily. Throughout our conversation she did interrupt me a few times encouraging me to call her as she is worried about him. He is currently undergoing chemotherapy treatment for bladder cancer and she became tearful stating that its been a lot to care for him on top of her own medical ailments. Her and her are being followed by [facility]. During my examination she was awake alert oriented x4 and able to hold meaningful conversation. I did remove her BiPAP (FiO2 30% 5 PEEP)when I was in the room and she desaturated to 83% and became more dyspneic with conversation. Heart rate remained controlled in the 80s and no palpitations were noted during my exam. Patient will be admitted for further evaluation and management. Please see A/P for further details. Principal Diagnosis Acute on chronic diastolic heart failure Acute hypoxic respite failure Severe hypocalcemia Discharge Exam Neuro: AAOx4, PERRLA, no aphagia, memory changes, CNII-XII grossly intact HEENT: head normocephalic, moist mucus membranes CV: S1/S2, (-) M/G/R, (+) edema right wrist and RLE, cap refill < 3 seconds Resp: Minimal bilateral basilar crackles GI: Abdomen S/NT/ND, Ax4 bowel sounds, (-) CVA tenderness. LUQ G-Tube Musculoskeletal: 5/5 B/L UE strength, 5/5 B/L LE strength. No gait disturbance Skin: very frail skin. RLE erythema and swelling, open laceration on pettit and dime sized ecchymosis right lateral pettit. Psych: euthymic mood Discharge Data Allergies Allergy/AdvReac Type Severity Reaction Status Date / Time No Known Allergies Allergy Verified 01/04/23 09:02 Consultations 01/11/23 12:29 ED Decision to Admit Stat 01/11/23 15:14 Consult Cardiology Routine Ordered Studies 01/11/23 12:07 US venous doppler UE RT Stat 01/14/23 10:30 US venous duplex leg [US venous doppler LE RT] Routine Hospital Course (1) Acute on chronic diastolic (congestive) heart failure: (2) SOB (shortness of breath): (3) Osteoarthritis: (4) Swelling: (5) Permanent atrial fibrillation: (6) COPD (chronic obstructive pulmonary disease): (7) History of bariatric surgery: (8) Feeding by G-tube: (9) Tachy-corin syndrome: (10) Hyperlipidemia: (11) Osteoporosis: (12) Depression: (13) Hypocalcemia: Plan 72 year old female presents with SOB at routine lab work appointment. New onset right wrist swelling. [facility] with CHF, chronic AF (On coumadin), pacemaker placement s/p Tachy/corin syndrome, H/O bariatric sx and G-Tube placement for malnourishment. She presented with shortness of breath. She was admitted to PCU and was treated for following conditions 1) Acute on chronic diastolic CHF: 2) Acute hypoxic respiratory failure Presented with increasing shortness of breath. Hypoxic on nonrebreather; placed on BiPAP FiO2 30% Chest x-ray with mild pulmonary congestion without edema; slight progression from previous studies During the hospitalization, patient was diuresed with IV Lasix. Patient's oxygen was weaned off gradually to room air. Two-step oxygen evaluation was done; patient did not require any supplemental oxygen. She was discharged on 40 mg of torsemide. She was instructed to follow-up with cardiology. Severe hypocalcemia: Received Prolia injection on 01/03 for osteoporosis Patient reported hand spasm and tremors on admission. Serum calcium of 5.3 ionized calcium 0.62 Patient was given multiple dose of IV calcium gluconate bolus and was placed on IV calcium gluconate drip overnight. After discussion with endocrinology Geronimo White regarding dosing of calcium supplement. Patient is started on calcitriol 0.25 mg twice daily and calcium carbonate 1250 mg 4 times a day. Her calcium on the day of discharge was 7. Patient was asked to discuss with her primary care doctor regarding alternatives for osteoporosis other than Prolia. PT OT evaluation was done during the hospitalization; patient was recommended to go to rehab. Extensive discussion was done with the patient regarding the re commendation. Patient reported that she has to take care of her who is undergoing cancer treatment and wanted to go back home. Home PT OT and home health ordered. Total Time Total Time Spent Total Time Spent (In Minutes): 40 Total Time Includes: Examination of the Patient, Discharge Planning, Medication Reconciliation, Communication With Other Providers and Other Discharge Plan Discharge Items Patient Disposition: Home - Self-Care Reason For Visit: SOB Discharge Diagnosis: Acute on chronic diastolic heart failure Severe hypocalcemia Activity: Resume your previous activity Non-emergency contact: Primary Care Provider Call non-emergency contact if: you have any medication questions Follow-up/Referrals: Olya Kimble DO [Primary Care Provider] - Diet: Regular Addtl Attending Provider Instructions: You were admitted to the hospital with shortness of breath. The reason for the shortness of breath was heart failure. You were treated with diuretics to decongest your lungs. You are prescribed torsemide 40 mg once daily. Please take it regularly. Follow-up with cardiology. You were also found to have severe due to blood calcium level. The most likely reason for it is Prolia injection that you received on January 03 for osteoporosis. You are prescribed calcitriol 0.25 micrograms to be taken twice daily and calcium carbonate 1250 mg to be taken 4 times a day. Please follow-up with her primary care doctor on Tuesday or Tuesday. Please recheck your calcium level during that time. Please check comprehensive metabolic panel. The dose of the calcium should be adjusted based on the calcium level. Please discuss with your primary care doctor regarding alternatives for osteoporosis as this can recur in the future as well. Please ask your primary care provider to to refer you to endocrinology. Your case was discussed with Dr. White ( Endocrinology) during the hospitalization. Pending Studies at Discharge: No Stand-Alone Forms: My [facility] [employer], Smoking Cessation Medications and DC Order Prescriptions: New calcitriol 0.25 mcg Capsule 0.25 mcg PO BID Qty: 60 0RF torsemide 40 mg tablet 40 mg PO DAILY Qty: 30 0RF calcium carbonate [Calcium 500] 500 mg calcium (1,250 mg) tablet,chewable 500 mg PO QID Qty: 120 0RF Continued acetaminophen [Tylenol Extra Strength] 500 mg Tablet 1,000 mg PO Q8H PRN (Reason: pain) Qty: 50 0RF fluticasone propion-salmeterol [Advair Diskus] 250-50 mcg/dose Blister With Device 1 inh INHALATION BID 30 Days Qty: 60 0RF ondansetron HCl 4 mg Tablet 4 mg PO Q12H PRN (Reason: NAUSEA/VOMITING) Qty: 15 0RF warfarin 2.5 mg Tablet See Rx Instructions .ROUTE .COMPLEX Qty: 30 0RF Rx Instructions: 2.5 mg orally; TAKES 2.5 MG ON TUE AND TUE. THEN 1.25 MG ON TUE, , TH, FRI. TAKES AT 1600 DAILY. zafirlukast [Accolate] 20 mg tablet 20 mg PO BID 30 Days Qty: 60 0RF digoxin [Digitek] 125 mcg (0.125 mg) tablet 125 mcg PO QAM 30 Days Qty: 30 0RF albuterol sulfate [Ventolin HFA] 90 mcg/actuation Hfa Aerosol Inhaler 2 puff INHALATION QID PRN (Reason: Shortness Of Breath Or Wheezing) Qty: 8.5 0RF sertraline [Zoloft] 50 mg Tablet 50 mg PO QAM 30 Days Qty: 30 0RF Vitron-C 65 mg iron- 125 mg Tablet,Delayed Release (Dr/Ec) 1 tab PO BID 30 Days Qty: 60 0RF omeprazole 40 mg Capsule,Delayed Release(Dr/Ec) 40 mg PO QAM gabapentin 100 mg Tablet 400 mg PO TID magnesium 200 mg tablet 200 mg PO QAM diphenhydramine HCl 12.5 mg tablet,chewable 12.5 mg PO BID PRN (Reason: allergic reaction) Qty: 30 0RF polyethylene glycol 3350 [Miralax] 17 gram Powder In Packet 17 g PO DAILY Qty: 30 0RF potassium chloride 20 mEq tablet,ER particles/crystals 20 meq PO BID Discontinued cholecalciferol (vitamin D3) [Vitamin D3] 2,000 unit Capsule 2,000 unit PO QAM 30 Days Qty: 30 0RF Discharge Orders: Discharge Order- CHF (Routine); Ordered 01/16/23 Ordered By: Giovanny Velarde Admission Data Admit Date/Time: 01/11/23 12:33 Attending Provider: Giovanny Velarde Admit Provider: Bob Alberts Primary Care Provider: Olya Kimble Other Providers: Bob Alberts ; Terry Menchaca ; [place] ; [facility] Other Interventions: Discharge Summary Assessment (RN) Last Done: 01/16/23 13:25
== END 2023-01-16 13:55 | disposition home health service (06) | DRG 291 ==
LOC: ED 10:27 → SUATTDRO 12:33 → EDINP 12:33 → 2S 20:01 → 2W 01-15 05:26

== ENCOUNTER 2024-07-09 14:41 | Inpatient (IN) ==
--- NOTE | 2024-07-09 15:38 | ED Triage Note ---
Date of Service July 09, 2024 Provider in Triage Author: Grisel Cuba History of Present Illness This patient was briefly evaluated while in triage. An abbreviated physical exam was performed. This patient is a 73-year-old Female who presents to the ED for evaluation of right leg pain and redness. Symptoms started last night and worsened today. She saw her PCP and they sent her here due to concerns for poor blood flow in the leg. Physical Exam GENERAL: Non-toxic and in no acute distress. EXTREMITIES: Right leg is erythematous from the knee to the foot. Toes are dusky appearing. Cap refill delayed. NEURO: Alert and oriented. No obvious neurological deficits on quick neuro exam. Initial orders for labs and / or imaging were placed and patient was placed in the waiting area until a bed is available. Please see further documentation for the full ED course.
--- NOTE | 2024-07-09 16:25 | Emergency Department Note ---
Impression & Plan Cellulitis of leg, right, Leukocytosis, Elevated lactic acid level, Elevated procalcitonin ED Provider Note HISTORY OF PRESENT ILLNESS: Patient is a 73-year-old female presenting with right leg pain and swelling. Patient reports that yesterday she noticed she was having pain and swelling to the right ankle region. Reports in the last 24 hours, the redness and swelling has progressed up her leg. She went to see her primary care provider today and was referred to the emergency department due to concern for potential blood clot in the leg. Patient denies any DVT or PE history. She is on Coumadin and reports has been taking this as prescribed. She denies any injury to the leg. Denies any diabetes history. She denies any measured fevers at home, but reports that yesterday morning and this morning she woke up covered in sweat. She reports pain to the leg but denies any numbness or tingling in her toes. ROS: as above PHYSICAL EXAM: Constitutional: Patient appears in no acute distress. HENT: Head: Normocephalic and atraumatic. Eyes: EOMI, PERRL Mouth/Throat: Mucous membranes moist. Neck: Trachea midline. Neck supple. Cardiovascular: RRR, No murmurs, rubs or gallops. Intact distal pulses. Pulmonary/Chest: No respiratory distress. Breath sounds clear and equal bilaterally. No wheezes or rales. Abdominal: Abdomen soft, no tenderness, rebound or guarding. Musculoskeletal: No edema, tenderness or deformity noted. Skin: Warm and dry. - RLE: Splotchy erythema that extends from the mid foot up to just below the right knee. No palpable crepitus. Leg is diffusely tender to palpation. Palpable DP pulse. Good cap refill in all 5 toes. Erythematous region is warm to the touch. Psychiatric: Appropriate mood and affect for situation. Neurological: Alert and keenly responsive. CN II-XII grossly intact, moving all extremities equally and fully. MDM: - Vitals signs stable - History obtained via patient. History as above. - Chronic conditions affecting care: COPD; Afib; hypothyroidism; depression - Differential diagnoses include, but are not limited to: Cellulitis; DVT; ischemic limb; necrotizing fasciitis - Order placed for continuous cardiac monitoring. At this time, monitor showed rate of 79 bpm with normal sinus rhythm, per my interpretation. - External medical records reviewed. Endocrinology visit note dated 04/04/2024 was reviewed. Patient follows in their clinic for her osteoporosis and vitamin D deficiency. - EKG interpreted by myself showed normal sinus rhythm. Rate 74 bpm. QT 432. No acute ischemic changes. - Laboratory workup interpreted by myself showed leukocytosis (WBC 14.03) with elevated neutrophils; elevated lactate (2.8); elevated anion gap (12); elevated procalcitonin (1.47) - DVT US RLE negative for DVT - Arterial US RLE negative for clot - MRSA DNA swab positive - Xray right ankle negative for bony abnormality but noted to have soft tissue swelling, per radiology. - Xray tib-fib negative for free air, per my interpretation. - Patient given 1L NS and 50 mcg IV fentanyl on arrival. Given IV vancomycin and zosyn for treatment of her cellulitis. - Discussion was had with geriatric case manager about patient's case and need for admission - Hospitalist, Dr. Spears, consulted for admission - Patient admitted to [facility] service for further evaluation and management. ASSESSMENT AND PLAN: Diagnosis: Right lower extremity cellulitis; elevated procalcitonin; elevated lactic acid; leukocytosis Plan: Admit Past Med/Surg History Problem List (Updated 07/09/24 @ 19:26 by Mia Balderrama MD) Elevated procalcitonin (Acute) Elevated lactic acid level (Acute) Leukocytosis (Acute) Cellulitis of leg, right (Acute) Hypothyroidism Depression with anxiety Tricuspid regurgitation Echo 12/2022: Moderate TR Malnutrition following gastrointestinal surgery Sacroiliac joint pain Spondylolisthesis at L5-S1 level Diastolic dysfunction Grade 2 Anticoagulated (Acute) warfarin daily Osteoporosis Feeding by G-tube Osteoarthritis Intractable low back pain (Acute) A-fib (Acute) S/P DANAE guided DCCV 10/2018, Reverted back to afib 03/2020, External DCCV 04/2020 History of bariatric surgery COPD (chronic obstructive pulmonary disease) Medical History (Updated 07/09/24 @ 19:26 by Mia Balderrama MD) History of fracture Sacral, 2020 Vitamin D deficiency Fungal rash of trunk Hand pain, right Colon polyp History of pressure ulcer Cardiac pacemaker in situ Medtronic Leigh, implanted 2018 Follows w/Dr. Tejas Haskins 10/2023 Hard of hearing GERD (gastroesophageal reflux disease) Surgical History History of transesophageal echocardiography (DANAE) History of esophagogastroduodenoscopy (EGD) History of cardioversion Pacemaker 2018 H/O ventral hernia repair History of cholecystectomy S/P appendectomy H/O hernia repair H/O gastric bypass S/P small bowel resection H/O colonoscopy Family History Other Cancer Hypertension Lung disease No family history of adverse response to anesthesia Social History Smoking Status: Never smoker Second Hand Exposure: Yes (in the past); Do You Dip or Chew Tobacco: No; Hx Alcohol Use: No Hx Substance Use: No Preferred Language: Serbian Communication Ability: Effective Visual Impairment: Limited Hearing Ability: Hard of Hearing Medical Safety Director Required: No Beliefs That Will Affect Care: None marital status: Current Living Situation: Spouse Current Living Situation Comment: Home with current occupational status: employed and retired current occupation: [employer] but on medical leave Feels Safe at Home: Yes Diet: low salt Diet Comment: And fluid restriction caffeine: No Assistive Devices: Cane and Glasses Allergies Allergies Allergy/AdvReac Type Severity Reaction Status Date / Time denosumab [From Prolia] AdvReac Severe Hypocalemia Verified 07/09/24 19:18 Home Meds Home Medications Medication Instructions Recorded Confirmed magnesium 200 mg tablet 200 mg PO QAM 06/08/22 04/04/24 acetaminophen 500 mg tablet 1,000 mg PO TID PRN pain 03/09/23 04/04/24 (Tylenol Extra Strength) albuterol sulfate 2.5 mg/3 mL 2.5 mg inhalation DIRECTED PRN 03/09/23 04/04/24 (0.083 %) solution for nebulization Shortness Of Breath Or Wheezing albuterol sulfate 90 mcg/actuation 2 puff inhalation Q4H PRN 03/09/23 04/04/24 aerosol inhaler (Ventolin HFA) Shortness Of Breath Or Wheezing bisacodyl 5 mg tablet 5 mg PO DAILY PRN Constipation 03/09/23 04/04/24 cyanocobalamin (vitamin B-12) 1,000 mcg IM MONTHLY 03/09/23 04/04/24 1,000 mcg/mL injection solution dexamethasone sodium phosphate 4 8 mg PO DIRECTED PRN EVENT OF 03/09/23 04/04/24 mg/mL injection solution FELICIA REACTION PER [facility] IV IRON PROTOCOL. diclofenac sodium 1 % topical gel 2 g topical BID PRN Pain 03/09/23 04/04/24 duloxetine 30 mg capsule,delayed 30 mg PO QAM 03/09/23 04/04/24 release sprinkle ferrous sulfate 325 mg (65 mg 325 mg PO DAILY 03/09/23 04/04/24 iron) tablet hydrocortisone 2.5 % topical cream 1 applic topical BID PRN Itching 03/09/23 04/04/24 lidocaine 4 % topical cream 1 applic topical DAILY 03/09/23 04/04/24 metoprolol succinate 25 mg 25 mg PO BID 03/09/23 04/04/24 tablet,extended release 24 hr joyzwvlj-[id number]-FA-Ca carb-vit K 1 tab PO BID 03/09/23 04/04/24 18 mg iron-400 mcg-500 mg tablet (Women's Daily Formula) nutritional supplements 0 ea feeding tube DAILY 03/09/23 04/04/24 nystatin 100,000 unit/gram topical 1 applic topical BID PRN Skin 03/09/23 04/04/24 cream Irritation ondansetron HCl 4 mg tablet 4 mg PO Q6H PRN NAUSEA/VOMITING 03/09/23 04/04/24 potassium chloride 10 mEq 10 meq PO BID 03/09/23 04/04/24 capsule,extended release spironolactone 25 mg tablet 12.5 mg PO QAM 03/09/23 04/04/24 torsemide 20 mg tablet 40 mg PO QAM 03/09/23 04/04/24 triamcinolone acetonide 0.1 % 1 applic topical BID PRN AFFECTED 03/09/23 04/04/24 topical ointment AREA zinc sulfate 50 mg zinc (220 mg) 50 mg PO DAILY 03/09/23 04/04/24 capsule calcium carbonate (Calcium 600) 1,200 mg PO QID 10/05/23 04/04/24 venlafaxine 75 mg tablet 150 mg PO BID 10/05/23 04/04/24 zoledronic acid 5 mg/100 mL in 1 ea IV YEARLY 10/05/23 04/04/24 mannitol 5 %-water intravenous piggybck (Reclast) vitamin A 2,400 mcg capsule 2,400 mcg PO DAILY 11/14/23 04/04/24 vitamin E 268 mg (400 unit) capsule 268 mg PO DAILY 11/14/23 04/04/24 vitamin K 1 tab PO DAILY 11/14/23 04/04/24 Previous Rx's Medication Instructions Recorded digoxin 125 mcg (0.125 mg) tablet 125 mcg PO QAM 30 days #30 tabs 01/30/22 (Digitek) fluticasone 250 mcg-salmeterol 50 1 inh inhalation BID 30 days #60 ea 01/30/22 mcg/dose blistr powdr for inhalation (Advair Diskus) warfarin 2.5 mg tablet See Rx Instructions .Route 01/30/22 .COMPLEX #30 tabs zafirlukast 20 mg tablet (Accolate) 20 mg PO BID 30 days #60 tabs 01/30/22 diphenhydramine HCl 12.5 mg 12.5 mg PO BID PRN allergic 09/19/22 chewable tablet reaction #30 tabs calcitriol 0.25 mcg capsule 0.5 mcg (2 x 0.25 mcg) PO BID #60 10/19/23 caps levothyroxine 50 mcg tablet 50 mcg PO DAILY #90 tabs 12/23/23 Results & Data (ED) Vital Signs Vital Signs - 24 hr 07/09/24 15:31 07/09/24 16:46 07/09/24 16:46 Temperature 36.9 C Temperature Source Temporal Artery Scan Pulse Rate 87 89 Pulse Rate [Right Finger] 89 Respiratory Rate 18 18 18 Respiratory Effort / Characteristics Non-Labored Spontaneous Non-Labored Spontaneous Respiratory Depth Normal Respiratory Pattern Regular Blood Pressure 108/73 Blood Pressure [Left Arm] 107/79 Blood Pressure Mean 84 Blood Pressure Mean [Left Arm] 88 Blood Pressure Position [Left Arm] Lying Pulse Oximetry 99 96 96 Oxygen Delivery Method Room Air Room Air Room Air Sepsis Recent Fever Within 48 Hours No Sepsis New/Unexplained Change in Mental Status Yes Sepsis Action Taken by Nursing No Action Required 07/09/24 18:46 Temperature Temperature Source Pulse Rate 79 Pulse Rate [Right Finger] Respiratory Rate Respiratory Effort / Characteristics Respiratory Depth Respiratory Pattern Blood Pressure Blood Pressure [Left Arm] Blood Pressure Mean Blood Pressure Mean [Left Arm] Blood Pressure Position [Left Arm] Pulse Oximetry Oxygen Delivery Method Sepsis Recent Fever Within 48 Hours Sepsis New/Unexplained Change in Mental Status Sepsis Action Taken by Nursing Laboratory Data 07/09/24 15:56 07/09/24 15:56 Lab Results 07/09/24 07/09/24 07/09/24 Range/Units 15:56 15:57 16:42 WBC 14.03 H (4.8-10.8) K/ul RBC 4.31 (4.20-5.40) M/uL Hgb 13.2 (12.0-16.0) g/dl Hct 38.5 (37.0-47.0) % MCV 89.3 (80.0-100.0) fL MCH 30.6 (25.0-34.0) pg MCHC 34.3 (32.0-36.0) g/dL RDW Std Deviation 45.6 (36.4-46.3) fL RDW Coeff of Saman 13.9 (11.5-14.5) % Plt Count 397 (130-400) K/uL MPV 9.8 (9.4-12.4) fL Immature Gran % (Auto) 0.4 % Neut % (Auto) 81.0 % Lymph % (Auto) 8.8 % Cedar % (Auto) 5.4 % Eos % (Auto) 4.1 % Baso % (Auto) 0.3 % Neut # (Auto) 11.35 H (1.40-6.50) K/uL Lymph # (Auto) 1.24 (1.20-3.40) K/uL Cedar # (Auto) 0.76 H (0.11-0.59) K/uL Eos # (Auto) 0.58 H (0.00-0.50) K/uL Baso # (Auto) 0.04 (0.00-0.20) K/uL Immature Gran # (Auto) 0.06 (0.01-0.20) K/uL Sodium 135 L (136-145) mmol/L Potassium 4.4 (3.5-5.1) mmol/L Chloride 97 L (98-107) mmol/L Carbon Dioxide 26 (21-32) mmol/L Anion Gap 12 H (3-11) BUN 22 (6-23) mg/dl Creatinine 1.08 (0.6-1.2) mg/dl Est Cr Clr Drug Dosing 30.8 ml/min Est GFR ( Amer) 59.8 ml/min Est GFR (Non-Af Amer) 51.6 ml/min BUN/Creatinine Ratio 20.4 H (10-20) Glucose 96 (70-99(Fasting)) mg/dl Lactate 2.8 H* (0.4-2.0) mmol/L Calcium 9.2 (8.6-10.3) mg/dl Total Bilirubin 0.8 (0.2-1.0) mg/dl AST 29 (13-39) U/L ALT 22 (7-52) U/L Alkaline Phosphatase 87 (34-104) U/L Total Protein 8.0 (6.0-8.3) gm/dl Albumin 4.1 (3.4-5.0) gm/dl Globulin 3.9 (2.5-4.0) gm/dl Albumin/Globulin Ratio 1.1 (0.9-2) Procalcitonin 1.47 H (0-0.5) ng/ml Nasal Screen MRSA (PCR) Positive A (Negative) 07/09/24 Range/Units 18:44 WBC (4.8-10.8) K/ul RBC (4.20-5.40) M/uL Hgb (12.0-16.0) g/dl Hct (37.0-47.0) % MCV (80.0-100.0) fL MCH (25.0-34.0) pg MCHC (32.0-36.0) g/dL RDW Std Deviation (36.4-46.3) fL RDW Coeff of Saman (11.5-14.5) % Plt Count (130-400) K/uL MPV (9.4-12.4) fL Immature Gran % (Auto) % Neut % (Auto) % Lymph % (Auto) % Cedar % (Auto) % Eos % (Auto) % Baso % (Auto) % Neut # (Auto) (1.40-6.50) K/uL Lymph # (Auto) (1.20-3.40) K/uL Cedar # (Auto) (0.11-0.59) K/uL Eos # (Auto) (0.00-0.50) K/uL Baso # (Auto) (0.00-0.20) K/uL Immature Gran # (Auto) (0.01-0.20) K/uL Sodium (136-145) mmol/L Potassium (3.5-5.1) mmol/L Chloride (98-107) mmol/L Carbon Dioxide (21-32) mmol/L Anion Gap (3-11) BUN (6-23) mg/dl Creatinine (0.6-1.2) mg/dl Est Cr Clr Drug Dosing ml/min Est GFR ( Amer) ml/min Est GFR (Non-Af Amer) ml/min BUN/Creatinine Ratio (10-20) Glucose (70-99(Fasting)) mg/dl Lactate 1.3 (0.4-2.0) mmol/L Calcium (8.6-10.3) mg/dl Total Bilirubin (0.2-1.0) mg/dl AST (13-39) U/L ALT (7-52) U/L Alkaline Phosphatase (34-104) U/L Total Protein (6.0-8.3) gm/dl Albumin (3.4-5.0) gm/dl Globulin (2.5-4.0) gm/dl Albumin/Globulin Ratio (0.9-2) Procalcitonin (0-0.5) ng/ml Nasal Screen MRSA (PCR) (Negative) Administered Medications Discontinued Medications Fentanyl Citrate (Fentanyl Citrate Pf 100 Mcg/2 Ml Vial) 50 mcg IV NOW STA Stop: 07/09/24 18:12 Last Admin: 07/09/24 18:18 Dose: 50 mcg Documented By: JOSLYN Sodium Chloride (Nss) 1,000 mls @ 999 mls/hr IV .Q1H1M ONE Stop: 07/09/24 17:19 Last Infusion: 07/09/24 18:53 Dose: Infused Documented By: Admin: 07/09/24 16:33 Dose: 999 mls/hr Documented By: SUREKHA Piperacillin Sod/Tazobactam Sod (Zosyn) 4.5 gm in 100 mls @ 200 mls/hr IV NOW ONE Stop: 07/09/24 16:48 Last Infusion: 07/09/24 17:11 Dose: Infused Documented By: Admin: 07/09/24 16:33 Dose: 200 mls/hr Documented By: SUREKHA Vancomycin HCl 1,000 mg/ (Sodium Chloride) 520 mls @ 200 mls/hr IV NOW ONE Stop: 07/09/24 19:06 Last Admin: 07/09/24 17:10 Dose: 200 mls/hr Documented By: BARBI Imaging Data Radiologist's Impression: Venous Doppler Study 07/09/24 15:38 ULTRASOUND RIGHT LOWER EXTREMITY VENOUS CLINICAL HISTORY: Right leg swelling and erythema. COMPARISON STUDY: Right lower extremity venous ultrasound dated 01/14/2023 TECHNIQUE: Real-time, grayscale, and color Doppler sonography of the deep veins of the right lower extremity was performed from the inguinal crease to the calf. Compression and augmentation were utilized. FINDINGS: There is no sonographic evidence of deep venous thrombosis identified in the right lower extremity. The common femoral, superficial femoral, and popliteal veins are patent and normally compressible. The greater saphenous vein and the profunda femoris vein at the junction with the common femoral vein are clear. The visualized calf veins are patent. IMPRESSION: There is no sonographic evidence of deep venous thrombosis identified in the right lower extremity. ACT 112: Negative or not required by law. Electronically signed by: Jason Bergeron M.D. 07/09/2024 6:48 PM Ankle X-Ray 07/09/24 16:19 RIGHT ANKLE 3 VIEWS CLINICAL HISTORY: Right ankle pain and swelling. Erythema. FINDINGS: 3 views of the right ankle are obtained. No prior studies are available for comparison at the time of dictation. The skeletal structures are osteopenic. No fracture is seen. The ankle mortise is intact. There are dorsal and plantar heel spurs. Soft tissue edema is seen throughout the right lower extremity. There is atherosclerotic calcification of the regional arteries. IMPRESSION: Soft tissue swelling with no acute bony abnormality identified. Electronically signed by: Jason Bergeron M.D. 07/09/2024 5:10 PM Tibia/Fibula X-Ray 07/09/24 16:19 XR tibia fibula RT 2V HISTORY: 73 years-old Female R leg swelling and redness; r/o free air acute pain and swelling of the right lower leg COMPARISON: Ankle radiographs of same day TECHNIQUE: 2 views of the right tibia and fibula FINDINGS: There is diffuse soft tissue swelling. Demineralized bones with likely degenerative sclerosis of the knee. No acute fracture, dislocation or osseous erosion. Arterial calcifications. IMPRESSION: Soft tissue swelling without acute osseous abnormality. ACT 112: Negative or not required by law. The above report was generated using voice recognition software. It may contain grammatical, syntax or spelling errors. Electronically signed by: Roe Bejarano M.D. 07/09/2024 4:50 PM Discharge Plan Visit Data Chief Complaint: Abdominal Pain Stated Complaint: R LEG CELLULITUS ED Provider: Mia Balderrama Discharge Problem: Cellulitis of leg, right, Leukocytosis, Elevated lactic acid level, Elevated procalcitonin Forms Stand Alone Forms: [facility] [employer] TEK Prescriptions Prescriptions: No Action calcitriol 0.25 mcg capsule 0.5 mcg PO BID Qty: 60 0RF levothyroxine 50 mcg tablet 50 mcg PO DAILY Qty: 90 3RF venlafaxine 75 mg tablet 150 mg PO BID zoledronic jybb-zxbfrsit-suzit [Reclast] 5 mg/100 mL piggyback 1 ea IV YEARLY fluticasone propion-salmeterol [Advair Diskus] 250-50 mcg/dose Blister With Device 1 inh INHALATION BID 30 Days Qty: 60 0RF warfarin 2.5 mg Tablet See Rx Instructions .ROUTE .COMPLEX Qty: 30 0RF Rx Instructions: TAKES 5 MG ON MON & FRI @ 1600, THEN 2.5 MG ON SUN, TU, WED, THURS, & SAT @ 1600. zafirlukast [Accolate] 20 mg tablet 20 mg PO BID 30 Days Qty: 60 0RF digoxin [Digitek] 125 mcg (0.125 mg) tablet 125 mcg PO QAM 30 Days Qty: 30 0RF magnesium 200 mg tablet 200 mg PO QAM diphenhydramine HCl 12.5 mg tablet,chewable 12.5 mg PO BID PRN (Reason: allergic reaction) Qty: 30 0RF vitamin A 2,400 mcg Capsule 2,400 mcg PO DAILY vitamin E 268 mg (400 unit) Capsule 268 mg PO DAILY vitamin K 1 tab PO DAILY potassium chloride 10 mEq Capsule, Extended Release 10 meq PO BID Hold Instructions: Elevated lab result Rx Instructions: PER [facility] ORDERED 20 MEQ BID. torsemide 20 mg Tablet 40 mg PO QAM albuterol sulfate [Proventil] 2.5 mg /3 mL (0.083 %) Solution For Nebulization 2.5 mg INHALATION DIRECTED PRN (Reason: Shortness Of Breath Or Wheezing) Peptamen 1.5 Liquid 0 ea feeding tube DAILY Rx Instructions: ADMINISTER 65 ML/12 HOURS, DIRECTED THROUGH J-TUBE VIA FEEDING PUMP. GIVE WATER FLUSH OF 150 ML BEFORE AND AFTER TUBE FEEDING. lidocaine 4 % Cream 1 applic TOPICAL DAILY Rx Instructions: USES ROLL-ON DAILY spironolactone 25 mg tablet 12.5 mg PO QAM cyanocobalamin (vitamin B-12) [Vitamin B-12] 1,000 mcg/mL Solution 1,000 mcg IM MONTHLY ferrous sulfate 325 mg (65 mg iron) Tablet 325 mg PO DAILY triamcinolone acetonide 0.1 % ointment 1 applic TOPICAL BID PRN (Reason: AFFECTED AREA) nystatin 100,000 unit/gram Cream 1 applic TOPICAL BID PRN (Reason: Skin Irritation) hydrocortisone 2.5 % Cream 1 applic TOPICAL BID PRN (Reason: Itching) Rx Instructions: MAY USE MORE THAN 2 X DAILY IF NEEDED metoprolol succinate 25 mg Tablet Extended Release 24 Hr 25 mg PO BID Rx Instructions: takes one tab in morning and 1.5 tabs in evening dexamethasone sodium phosphate 4 mg/mL Solution 8 mg PO DIRECTED PRN (Reason: EVENT OF FELICIA REACTION PER [facility] IV IRON PROTOCOL.) bisacodyl 5 mg Tablet 5 mg PO DAILY PRN (Reason: Constipation) zinc sulfate 50 mg zinc (220 mg) Capsule 50 mg PO DAILY diclofenac sodium [Voltaren] 1 % Gel 2 g TOPICAL BID PRN (Reason: Pain) Women's Daily Formula 18 mg iron-400 mcg-500 mg Tablet 1 tab PO BID duloxetine 30 mg Capsule, Delayed Rel Sprinkle 30 mg PO QAM ondansetron HCl 4 mg tablet 4 mg PO Q6H PRN (Reason: NAUSEA/VOMITING) acetaminophen [Tylenol Extra Strength] 500 mg tablet 1,000 mg PO TID PRN (Reason: pain) albuterol sulfate [Ventolin HFA] 90 mcg/actuation HFA aerosol inhaler 2 puff INHALATION Q4H PRN (Reason: Shortness Of Breath Or Wheezing) calcium carbonate [Calcium 600] 600 mg calcium (1,500 mg) tablet 1,200 mg PO QID Referrals Referrals: Olya Kimble DO [Primary Care Provider] -
[2024-07-09 16:29] LABS: Basophils # (auto) 0.04 K/uL (0.00-0.20); Basophils % (auto) 0.3 %; Eosinophils # (auto) 0.58 K/uL (0.00-0.50); Eosinophils % (auto) 4.1 %; Hematocrit (blood only) 38.5 % (37.0-47.0); Hemoglobin 13.2 g/dl (12.0-16.0); Immature Granulocytes # (auto) 0.06 K/uL (0.01-0.20); Immature Granulocytes % (auto) 0.4 %; Lymphocytes # (auto) 1.24 K/uL (1.20-3.40); Lymphocytes % (auto) 8.8 %; Mean Corpuscular Hemoglobin 30.6 pg (25.0-34.0); Mean Corpuscular Hgb Conc 34.3 g/dL (32.0-36.0); Mean Corpuscular Volume 89.3 fL (80.0-100.0); Mean Platelet Volume 9.8 fL (9.4-12.4); Monocytes # (auto) 0.76 K/uL (0.11-0.59); Monocytes % (auto) 5.4 %; Neutrophils # (auto) 11.35 K/uL (1.40-6.50); Platelet Count 397 K/uL (130-400); RDW Coefficient of Variation 13.9 % (11.5-14.5); RDW Standard Deviation 45.6 fL (36.4-46.3); Red Blood Count 4.31 M/uL (4.20-5.40); White Blood Count 14.03 K/ul (4.8-10.8)
[2024-07-09] MEDS ORDERED: VANCOMYCIN CONSULT ACTIVE PRN (16:31)
[2024-07-09] MEDS: SODIUM CHLORIDE 0.9% 1,000 ML IV ONE (16:33)
[2024-07-09] MEDS: PIPERACILLIN/TAZOBACTAM 4.5 GM/100 ML BAG IV ONE (16:33)
[2024-07-09 16:41] LABS: Albumin Globulin Ratio 1.1 (0.9-2); Albumin Level 4.1 gm/dl (3.4-5.0); BUN Creatinine Ratio 20.4 (10-20); Bilirubin,Total 0.8 mg/dl (0.2-1.0); Calcium 9.2 mg/dl (8.6-10.3); Creatinine Clr Calc Pharmacy 30.8 ml/min; Est GFR (African American) 59.8 ml/min; Est GFR (Non-African American) 51.6 ml/min; Globulin 3.9 gm/dl (2.5-4.0); Potassium 4.4 mmol/L (3.5-5.1)
--- NOTE | 2024-07-09 16:51 | XRay Report ---
XR tibia fibula RT 2V HISTORY: 73 years-old Female R leg swelling and redness; r/o free air acute pain and swelling of the right lower leg COMPARISON: Ankle radiographs of same day TECHNIQUE: 2 views of the right tibia and fibula FINDINGS: There is diffuse soft tissue swelling. Demineralized bones with likely degenerative sclerosis of the knee. No acute fracture, dislocation or osseous erosion. Arterial calcifications. IMPRESSION: Soft tissue swelling without acute osseous abnormality. ACT 112: Negative or not required by law. The above report was generated using voice recognition software. It may contain grammatical, syntax o r spelling errors. Electronically signed by: Roe Bejarano M.D. 07/09/2024 4:50 PM
[2024-07-09] MEDS: VANCOMYCIN HCL 1,000 MG in SODIUM CHLORIDE 0.9% 500 ML IV ONE (17:10)
--- NOTE | 2024-07-09 17:12 | XRay Report ---
RIGHT ANKLE 3 VIEWS CLINICAL HISTORY: Right ankle pain and swelling. Erythema. FINDINGS: 3 views of the right ankle are obtained. No prior studies are available for comparison at t he time of dictation. The skeletal structures are osteopenic. No fracture is seen. The ankle mortise is intact. There are dorsal and plantar heel spurs. Soft tissue edema is seen throughout the right lo wer extremity. There is atherosclerotic calcification of the regional arteries. IMPRESSION: Soft tissue swelling with no acute bony abnormality identified. Electronically signed by: Jason Bergeron M.D. 07/09/2024 5:10 PM
[2024-07-09] MEDS: fentaNYL citrate PF 100 MCG/2 ML VIAL IV STA (18:18)
--- NOTE | 2024-07-09 18:49 | Ultrasound Report ---
ULTRASOUND RIGHT LOWER EXTREMITY VENOUS CLINICAL HISTORY: Right leg swelling and erythema. COMPARISON STUDY: Right lower extremity venous ultrasound dated 01/14/2023 TECHNIQUE: Real-time, grayscale, and color Doppler sonography of the deep veins of the right lower ex tremity was performed from the inguinal crease to the calf. Compression and augmentation were utilize d. FINDINGS: There is no sonographic evidence of deep venous thrombosis identified in the right lower ex tremity. The common femoral, superficial femoral, and popliteal veins are patent and normally ann sible. The greater saphenous vein and the profunda femoris vein at the junction with the common femor al vein are clear. The visualized calf veins are patent. IMPRESSION: There is no sonographic evidence of deep venous thrombosis identified in the right lower extremity. ACT 112: Negative or not required by law. Electronically signed by: Jason Bergeron M.D. 07/09/2024 6:48 PM
--- NOTE | 2024-07-09 19:32 | History & Physical Report ---
Date of Service July 09, 2024 Assessment & Plan (1) Cellulitis of leg, right: Plan This is a 73yoF with a complex medical history that includes tachybradycardia syndrome status post pacemaker placement 2018, diastolic CHF, bariatric surgery 2003, gastric fistula surgery 2014 with J-tube placement in 2021 with chronic tube feedings, A-fib with RVR on chronic Coumadin, COPD, anemia, depression, hyperlipidemia, GERD, hyperparathyroidism, COPD, pulmonary hypertension, PVD presenting with concern for right lower extremity cellulitis. Patient was sent in from her PCPs office where she presented with 2 days of right lower extremity pain and erythema. Denies any known injury but states the pain for started in her right ankle. States sometimes the right lower extremity changes color. States that she has been having some chills, nausea and vomiting and has not been able to eat by mouth for the past few days. Patient does have a J-tube in place for history of malnutrition for which she takes 4 cans of Peptamen daily. Has a history of gastric bypass surgery. Mariposa cavazos follows with general/Bariatric surgery and GI/nutrition. Cellulitis, right lower extremity Patient with erythema and swelling of the right foot that goes up the leg X-ray of the ankle with just noted soft tissue swelling X-ray of the fibula/fibular area with noted soft tissue swelling Doppler ultrasound of the right lower extremity without DVT Arterial Doppler unremarkable except for monophasic waveforms, advising to consider CTA abdomen pelvis with runoff CTA abdomen aorta with runoff ordered MRI of the right lower extremity pending, appears patient does have a compatible pacemaker as she has had recent MRIs completed Leukocytosis noted, Lactate elevated, downtrending with fluid Procalcitonin elevated Lyme screen pending Patient not currently meeting criteria for facility blood cultures to be ordered Patient received doses of IV Zosyn and vancomycin in the emergency room, continue with IV Zosyn and daptomycin Continue to monitor A-fib with RVR History of tachybradycardia syndrome status post pacemaker placement Diastolic CHF Blood pressure has been trending on the lower side, however unsure if this is patient's baseline at this time Continue home digoxin and metoprolol Continue home torsemide and spironolactone Patient on warfarin for anticoagulation, follow INR INR not drawn at the time of admission, please follow and resume home warfarin as needed History of jejunostomy tube placement Malnutrition continue home Peptamen with diet order dietitian consult placed continue other home meds as ordered CODE STATUS: Full code per discussion with patient Diet: Heart healthy, patient has a J-tube DVT prophylaxis: On warfarin [facility] History of Present Illness Chief Complaint: RLE pain and swelling Primary Care Provider: Olya Kimble DO This is a 73yoF with a complex medical history that includes tachybradycardia syndrome status post pacemaker placement 2018, diastolic CHF, bariatric surgery 2003, gastric fistula surgery 2014 with J-tube placement originally in 2021 with chronic tube feedings, A-fib with RVR on chronic Coumadin, COPD, anemia, depression, hyperlipidemia, GERD, hyperparathyroidism, COPD, pulmonary hypertension, PVD presenting with concern for right lower extremity cellulitis. Patient was sent in from her PCPs office where she presented with 2 days of right lower extremity pain and erythema. Denies any known injury but states the pain for started in her right ankle. States sometimes the right lower extremity changes color. States that she has been having some chills, nausea and vomiting and has not been able to eat by mouth for the past few days. Heidy olson does have a J-tube in place for history of malnutrition for which she takes 4 cans of Peptamen daily. Has a history of gastric bypass surgery. Patient follows with general/Bariatric surgery and GI nutrition. Allergies Allergy/AdvReac Type Severity Reaction Status Date / Time denosumab [From Prolia] AdvReac Severe Hypocalemia Verified 07/09/24 19:18 Home Medications Medication Instructions Recorded Confirmed Type digoxin 125 mcg (0.125 mg) tablet 125 mcg PO QAM 30 days #30 tabs 01/30/22 07/09/24 Rx (Digitek) fluticasone 250 mcg-salmeterol 50 1 inh inhalation BID 30 days #60 ea 01/30/22 07/09/24 Rx mcg/dose blistr powdr for inhalation (Advair Diskus) warfarin 2.5 mg tablet See Rx Instructions .Route 01/30/22 07/09/24 Rx .COMPLEX #30 tabs magnesium 200 mg tablet 200 mg PO QAM 06/08/22 07/09/24 History diphenhydramine HCl 12.5 mg 12.5 mg PO BID PRN allergic 09/19/22 07/09/24 Rx chewable tablet reaction #30 tabs acetaminophen 500 mg tablet 1,000 mg PO TID PRN pain 03/09/23 07/09/24 History (Tylenol Extra Strength) albuterol sulfate 2.5 mg/3 mL 2.5 mg inhalation DIRECTED PRN 03/09/23 07/09/24 History (0.083 %) solution for nebulization Shortness Of Breath Or Wheezing albuterol sulfate 90 mcg/actuation 2 puff inhalation Q4H PRN 03/09/23 07/09/24 History aerosol inhaler (Ventolin HFA) Shortness Of Breath Or Wheezing cyanocobalamin (vitamin B-12) 1,000 mcg IM MONTHLY 03/09/23 07/09/24 History 1,000 mcg/mL injection solution diclofenac sodium 1 % topical gel 2 g topical BID PRN Pain 03/09/23 07/09/24 History ferrous sulfate 325 mg (65 mg 325 mg PO DAILY 03/09/23 07/09/24 History iron) tablet hydrocortisone 2.5 % topical cream 1 applic topical BID PRN Itching 03/09/23 07/09/24 History lidocaine 4 % topical cream 1 applic topical DAILY 03/09/23 07/09/24 History metoprolol succinate 25 mg 37.5 mg PO BID 03/09/23 07/09/24 History tablet,extended release 24 hr msvfuabi-kac-fwnk-FA-Ca carb-vit K 1 tab PO BID 03/09/23 07/09/24 History 18 mg iron-400 mcg-500 mg tablet (Women's Daily Formula) nutritional supplements 0 ea feeding tube DAILY 03/09/23 07/09/24 History nystatin 100,000 unit/gram topical 1 applic topical BID PRN Skin 03/09/23 07/09/24 History cream Irritation ondansetron HCl 4 mg tablet 4 mg PO Q6H PRN NAUSEA/VOMITING 03/09/23 07/09/24 History spironolactone 25 mg tablet 12.5 mg PO QAM 03/09/23 07/09/24 History torsemide 20 mg tablet 40 mg PO QAM 03/09/23 07/09/24 History triamcinolone acetonide 0.1 % 1 applic topical BID PRN AFFECTED 03/09/23 07/09/24 History topical ointment AREA zinc sulfate 50 mg zinc (220 mg) 50 mg PO DAILY 03/09/23 07/09/24 History capsule zoledronic acid 5 mg/100 mL in 1 ea IV YEARLY 10/05/23 07/09/24 History mannitol 5 %-water intravenous piggybck (Reclast) calcitriol 0.25 mcg capsule 0.5 mcg (2 x 0.25 mcg) PO BID #60 10/19/23 07/09/24 Rx caps vitamin A 2,400 mcg capsule 2,400 mcg PO DAILY 11/14/23 07/09/24 History vitamin E 268 mg (400 unit) capsule 268 mg PO DAILY 11/14/23 07/09/24 History vitamin K2 (MK-4) 100 mcg tablet 1 tab PO DAILY 11/14/23 07/09/24 History levothyroxine 50 mcg tablet 50 mcg PO DAILY #90 tabs 12/23/23 07/09/24 Rx calcium citrate 315 mg-vitamin D3 2 tab PO BID 07/09/24 07/09/24 History 5 mcg (200 unit) tablet (Calcium Citrate + D) montelukast 10 mg tablet 10 mg PO HS 07/09/24 07/09/24 History omeprazole 20 mg capsule,delayed 20 mg PO QAM 07/09/24 07/09/24 History release venlafaxine 100 mg tablet 150 mg PO BID 07/09/24 07/09/24 History Past Med/Surg History Problem List (Updated 07/09/24 @ 19:26 by Mia Balderrama MD) Elevated procalcitonin (Acute) Elevated lactic acid level (Acute) Leukocytosis (Acute) Cellulitis of leg, right (Acute) Hypothyroidism Depression with anxiety Tricuspid regurgitation Echo 12/2022: Moderate TR Malnutrition following gastrointestinal surgery Sacroiliac joint pain Spondylolisthesis at L5-S1 level Diastolic dysfunction Grade 2 Anticoagulated (Acute) warfarin daily Osteoporosis Feeding by G-tube Osteoarthritis Intractable low back pain (Acute) A-fib (Acute) S/P DANAE guided DCCV 10/2018, Reverted back to afib 03/2020, External DCCV 04/2020 History of bariatric surgery COPD (chronic obstructive pulmonary disease) Medical History (Updated 07/09/24 @ 19:26 by Mia Balderrama MD) History of fracture Sacral, 2020 Vitamin D deficiency Fungal rash of trunk Hand pain, right Colon polyp History of pressure ulcer Cardiac pacemaker in situ [employer] [place], implanted 2018 Follows w/Dr. Tejas Haskins 10/2023 Hard of hearing GERD (gastroesophageal reflux disease) Surgical History History of transesophageal echocardiography (DANAE) History of esophagogastroduodenoscopy (EGD) History of cardioversion Pacemaker 2018 H/O ventral hernia repair History of cholecystectomy S/P appendectomy H/O hernia repair H/O gastric bypass S/P small bowel resection H/O colonoscopy Family History Other Cancer Hypertension Lung disease No family history of adverse response to anesthesia Social History Smoking Status: Never smoker Second Hand Exposure: Yes (in the past); Do You Dip or Chew Tobacco: No; Hx Alcohol Use: No Hx Substance Use: No Preferred Language: Filipino Communication Ability: Effective Visual Impairment: Limited Hearing Ability: Hard of Hearing Sugar Coating Hand Required: No Beliefs That Will Affect Care: None marital status: Current Living Situation: Spouse Current Living Situation Comment: Home with current occupational status: employed and retired current occupation: [employer] but on medical leave Feels Safe at Home: Yes Diet: low salt Diet Comment: And fluid restriction caffeine: No Assistive Devices: Cane and Glasses Review of Systems Review of Systems: All systems reviewed & are unremarkable except as noted in HPI & below Physical Exam Physical Exam: General: Alert, oriented. No acute distress, thin, frail Skin: left foot swollen with noted erythema spreading up the right leg Psych: Appropriate mood and affect Neuro: difficulty with movements in the bed HEENT: NC/AT CV: RRR Resp: Breath sounds clear bilaterally, no increased effort of breathing Abdomen: Soft, nontender, J tube present Extremities: eft foot swollen with noted erythema spreading up the right leg, ve ry tender to palpation especially in the right ankle region Results & Data Results & Data Vital Signs (Past 12 Hours) Vital Signs Temp Pulse Pulse Resp BP BP Pulse Ox 07/09/24 18:46 79 07/09/24 16:46 89 18 96 07/09/24 16:46 89 18 107/79 96 07/09/24 15:31 36.9 C 87 18 108/73 99 O2 Del Method 07/09/24 18:46 07/09/24 16:46 Room Air 07/09/24 16:46 Room Air 07/09/24 15:31 Room Air Diagnostic Findings Duplex Scan Lower Extremity Artery 07/09/24 15:38 Exam(s): US ARTERIAL RIGHT LOWER EXTREMITY EXAM: US Duplex Right Lower Extremity Arteries CLINICAL HISTORY: Reason for exam: Right leg swelling, redness, dusky. TECHNIQUE: Real-time duplex ultrasound scan of the right lower extremity arteries integrating B-mode two-dimensional vascular structure, Doppler spectral analysis and color flow Doppler imaging. COMPARISON: No relevant prior studies available. FINDINGS: Right common femoral artery: No occlusion or significant stenosis on color flow and spectral Doppler imaging. Triphasic waveform. Right superficial femoral artery: No occlusion or significant stenosis on color flow and spectral Doppler imaging. Monophasic waveform. Right popliteal artery: No occlusion or significant stenosis on color flow and spectral Doppler imaging. Monophasic waveform. Right calf/foot arteries: No occlusion or significant stenosis on color flow and spectral Doppler imaging. Monophasic waveform. Patent dorsalis pedis artery. Soft tissues: Mild atherosclerosis. IMPRESSION: 1. Atherosclerosis, without stenosis. 2. Monophasic waveforms are noted, nonspecific, consider CTA abdomen/pelvis and runoff as indicated for further evaluation. Electronically signed by: Shelby Bashir M.D. 07/09/24 19:44 PM Venous Doppler Study 07/09/24 15:38 ULTRASOUND RIGHT LOWER EXTREMITY VENOUS CLINICAL HISTORY: Right leg swelling and erythema. COMPARISON STUDY: Right lower extremity venous ultrasound dated 01/14/2023 TECHNIQUE: Real-time, grayscale, and color Doppler sonography of the deep veins of the right lower extremity was performed from the inguinal crease to the calf. Compression and augmentation were utilized. FINDINGS: There is no sonographic evidence of deep venous thrombosis identified in the right lower extremity. The common femoral, superficial femoral, and popliteal veins are patent and normally compressible. The greater saphenous vein and the profunda femoris vein at the junction with the common femoral vein are clear. The visualized calf veins are patent. IMPRESSION: There is no sonographic evidence of deep venous thrombosis identified in the right lower extremity. ACT 112: Negative or not required by law. Electronically signed by: Jason Bergeron M.D. 07/09/2024 6:48 PM Ankle X-Ray 07/09/24 16:19 RIGHT ANKLE 3 VIEWS CLINICAL HISTORY: Right ankle pain and swelling. Erythema. FINDINGS: 3 views of the right ankle are obtained. No prior studies are available for comparison at the time of dictation. The skeletal structures are osteopenic. No fracture is seen. The ankle mortise is intact. There are dorsal and plantar heel spurs. Soft tissue edema is seen throughout the right lower extremity. There is atherosclerotic calcification of the regional arteries. IMPRESSION: Soft tissue swelling with no acute bony abnormality identified. Electronically signed by: Jason Bergeron M.D. 07/09/2024 5:10 PM Tibia/Fibula X-Ray 07/09/24 16:19 XR tibia fibula RT 2V HISTORY: 73 years-old Female R leg swelling and redness; r/o free air acute pain and swelling of the right lower leg COMPARISON: Ankle radiographs of same day TECHNIQUE: 2 views of the right tibia and fibula FINDINGS: There is diffuse soft tissue swelling. Demineralized bones with likely degenerative sclerosis of the knee. No acute fracture, dislocation or osseous erosion. Arterial calcifications. IMPRESSION: Soft tissue swelling without acute osseous abnormality. ACT 112: Negative or not required by law. The above report was generated using voice recognition software. It may contain grammatical, syntax or spelling errors. Electronically signed by: Roe Bejarano M.D. 07/09/2024 4:50 PM Code Status & VTE Plan VTE Prophylaxis Plan VTE Prophylaxis will be ordered: Yes
--- NOTE | 2024-07-09 19:44 | Ultrasound Report ---
Exam(s): US ARTERIAL RIGHT LOWER EXTREMITY EXAM: US Duplex Right Lower Extremity Arteries CLINICAL HISTORY: Reason for exam: Right leg swelling, redness, dusky. TECHNIQUE: Real-time duplex ultrasound scan of the right lower extremity arteries integrating B-mode two-dimensional vascular structure, Doppler spectral analysis and color flow Doppler imaging. COMPARISON: No relevant prior studies available. FINDINGS: Right common femoral artery: No occlusion or significant stenosis on color flow and spectral Doppler imaging. Triphasic waveform. Right superficial femoral artery: No occlusion or significant stenosis on color flow and spectral Doppler imaging. Monophasic waveform. Right popliteal artery: No occlusion or significant stenosis on color flow and spectral Doppler imaging. Monophasic waveform. Right calf/foot arteries: No occlusion or significant stenosis on color flow and spectral Doppler imaging. Monophasic waveform. Patent dorsalis pedis artery. Soft tissues: Mild atherosclerosis. IMPRESSION: 1. Atherosclerosis, without stenosis. 2. Monophasic waveforms are noted, nonspecific, consider CTA abdomen/pelvis and runoff as indicated for further evaluation. Electronically signed by: Shelby Bashir M.D. 07/09/24 19:44 PM
[2024-07-09] MEDS: MoRPHine SULFATE 4 MG/ML 1 ML CARP\\VIAL IV STA (20:46)
[2024-07-09] MEDS: OPTIRAY 320 125ml IV ONE (20:57)
[2024-07-09] MEDS ORDERED: HYDROmorphone INJ 0.5 MG/0.5 ML SYR IV PRN (21:02)
[2024-07-09 22:11] LABS: INR 2.1 (0.9-1.1); Prothrombin Time 20.9 Seconds (9.0-12.0)
[2024-07-09] MEDS: MONTELUKAST SODIUM 10 MG TABLET PO SCH (22:12)
[2024-07-09] MEDS: CALCITRIOL 0.25 MCG CAPSULE PO SCH (22:13)
[2024-07-09] MEDS: VENLAFAXINE HCL 50 MG TAB PO SCH (22:14)
[2024-07-09] MEDS: METOPROLOL SUCC 25MG EXT REL TAB PO SCH (22:15)
[2024-07-09] MEDS: CALCIUM 600MG + VIT D 400 IU TAB PO SCH (22:17)
[2024-07-09] MEDS: PIPERACILLIN/TAZOBACTAM 4.5 GM/100 ML BAG IV SCH (22:37)
--- NOTE | 2024-07-09 23:56 | CT Scan Report ---
Exam(s): CTA ABDOMEN + PELVIS, CTA EXTREMITY LEFT LOWER, CTA EXTREMITY RIGHT LOWER IV Amt: 119 ml optiray 320 EXAM: CT Angiography Abdomen and Pelvis With Intravenous Contrast CLINICAL HISTORY: Right lower extremity swelling. TECHNIQUE: Axial computed tomographic angiography images of the abdomen and pelvis with intravenous contrast. CTDI is 30.87 mGy and DLP is 871.4 mGy-cm. Automated exposure control was utilized for the study. A dose lowering technique was utilized adhering to the principles of ALARA. MIP reconstructed images were created and reviewed. COMPARISON: No relevant prior studies available. FINDINGS: VASCULATURE: Aorta: No acute findings. No aortic aneurysm or dissection. Celiac trunk and mesenteric arteries: There is mild atherosclerosis of the origin of the celiac trunk, SMA and FRANK without significant stenosis. Renal arteries: There is atherosclerosis of the origin of both renal arteries without significant stenosis. Iliac arteries: There is atherosclerosis of the bilateral common, internal and external iliac arteries without significant stenosis. Lung bases: Unremarkable. No mass. No consolidation. ABDOMEN: Liver: Unremarkable. No mass. Gallbladder and bile ducts: Cholecystectomy. No ductal dilation. Pancreas: Unremarkable. No ductal dilation. No mass. Spleen: Unremarkable. No splenomegaly. Adrenals: Unremarkable. No mass. Kidneys and ureters: Unremarkable. No hydronephrosis. No solid mass. Stomach and bowel: Suspect asymmetric thickening of the wall of the rectum. There is surgical changes of the stomach. Nonspecific thickening of the distal stomach wall. No obstruction. PELVIS: Appendix: No findings to suggest acute appendicitis. Bladder: Unremarkable. No mass. Reproductive: Unremarkable as visualized. ABDOMEN and PELVIS: Intraperitoneal space: Unremarkable. No significant fluid collection. No free air. 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 No acute fracture. No dislocation. Soft tissues: Unremarkable. Lymph nodes: Unremarkable. No enlarged lymph nodes. Tubes, lines and devices: A J-tube is in good position. IMPRESSION: 1. No aortic aneurysm or dissection. 2. Suspect asymmetric thickening of the wall of the rectum. Malignancy should be excluded. 3. Nonspecific thickening of the distal stomach wall. 4. 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 EXAM: CT Angiography of the Left Lower Extremity With Intravenous Contrast CLINICAL HISTORY: Right lower extremity swelling. TECHNIQUE: Axial computed tomographic angiography images of the left lower extremity with intravenous contrast. CTDI is 0 mGy and DLP is 0 mGy-cm. Automated exposure control was utilized for the study. A dose lowering technique was utilized adhering to the principles of ALARA. MIP reconstructed images were created and reviewed. COMPARISON: No relevant prior studies available. FINDINGS: VASCULATURE: Left femoral/popliteal arteries: Minimal atherosclerosis of the common femoral and superficial femoral arteries of significant stenosis. Mild atherosclerosis of the popliteal artery. Left calf/foot arteries: No acute findings. No occlusion or significant stenosis. Other arteries: 3-vessel runoff with opacification of the arteries through the level of the ankle. This is asymmetric compared to the right where there is opacification through the foot. Which is likely secondary to stenosis of the tibial peroneal trunk. There appears to be focal at least 50% stenosis of the tibioperoneal trunk. LOWER EXTREMITY: Bones/joints: No acute fracture. No dislocation. Soft tissues: Unremarkable. No abnormal contrast enhancement. IMPRESSION: 1. 3-vessel runoff with opacification of the arteries through the level of the ankle. This is asymmetric compared to the right where there is opacification through the foot. This could be secondary to stenosis of the tibial peroneal trunk. 2. There appears to be focal at least 50% stenosis of the tibioperoneal trunk. EXAM: CT Angiography of the Right Lower Extremity With Intravenous Contrast CLINICAL HISTORY: Right lower extremity swelling. TECHNIQUE: Axial computed tomographic angiography images of the right lower extremity with intravenous contrast. CTDI is 0 mGy and DLP is 0 mGy-cm. Automated exposure control was utilized for the study. A dose lowering technique was utilized adhering to the principles of ALARA. MIP reconstructed images were created and reviewed. COMPARISON: No relevant prior studies available. FINDINGS: VASCULATURE: Right femoral/popliteal arteries: Minimal atherosclerosis of the common femoral and superficial femoral arteries without significant stenosis. Mild atherosclerosis of the popliteal artery. Right calf/foot arteries: No acute findings. No occlusion or significant stenosis. LOWER EXTREMITY: Bones/joints: No acute fracture. No dislocation. Soft tissues: There is nonspecific subcutaneous edema of the calf and foot. IMPRESSION: 1. There is nonspecific subcutaneous edema of the calf and foot. 2. 3-vessel runoff with opacification through the level of the foot. No occlusion or significant stenosis. Electronically signed by: Rosario Rodriguez MD 07/09/24 23:55 PM
[2024-07-10] MEDS: DAPTOmycin 275 MG in SYRINGE 0 ML IV SCH (01:07)
--- OUTSIDE RECORDS SUMMARY | 2024-07-10 03:37 | External Medical Summary ---
Author Name Unknown Address Unknown Organization : Laboratory Report Ordering Provider Test Date Status PHARMACISTLUCILA 07/09/2024 13:51:33 Final Therapeutic ranges for non-o perative patients:
Prophylaxsis/treatment of DVT: (Range:2.0-3.0)
Treatment of pulmonary embolism:(Range:2.0-3.0)
Prevention of systemic embolism from:
-tissue heart valves
-acute myocardial infarction
-valvular heart disease
-atrial fibrillation
(Range: 2.0-3.0)
Mechanical prosthetic valves: (Range: 2.5-3.5) Observation Date Value Abnormality Reference (Units ) Status INR in Capillary blood by Coagulation assay 07/09/2024 13:51:33 2.0 (INR) Final Performing Location
--- OUTSIDE RECORDS SUMMARY | 2024-07-10 03:38 | External Medical Summary | Summary of Care ---
Author Name Unknown Organization [facility] Address [address] [place] [address] Phone [phone] Care Team Providers Care [employer] Name Role Phone Olya Kimble DO Primary Care Provider [phone] Reason for Visit * Reason Onset Date Comments Advice 06/27/202407/04 Order Request 06/27/202406/29; 07/05 Encounter Details Date Type Department Care Team (Late st Contact Info) Description 06/27/2024 Telephone Family Practice [address] [place] [id number] Olya Kimble [address] [place] [address] Advice (07/04); Order Request (06/29; 07/05) Allergies Active Allergy Reactions Criticality Noted Date Comments Denosumab High 02/22/2023 SEVERE HYPOCALCEMIA documented as of this encounter (statuses as of 07/06/2024) Medications Medication Sig Dispensed Refills Start Date End Date Status Mag-Oxide 200 MG Oral Tablet (Magnesium Oxide) Take 1 Tablet by mouth in the morning and 1 Tablet before bedtime. 01/13/2022 Active Lidocaine 4 % External Patch Place 1 Patch topically on the skin daily. Active Dexamethasone Sodium Phosphate 4 MG/ML Injection Solution (Decadron) Inject intravenously 8 mg as needed for Anaphylaxis (severe allergic reaction) (To be administered in the event of anaphylactic reaction per [facility] IV iron anaphylaxis protocol). 2 mL 11 03/10/2022 Active Acetaminophen 500 MG Oral Tablet (Tylenol) Take 2 Tablets by mouth 3 times a day as needed for Pain, Moderate. 100 Tablet 05/18/2022 Active Zinc Sulfate 220 (50 Zn) MG Oral CapsuleIndications:S evere protein-calorie malnutrition (HCC),Intestinal postoperative nonabsorption,S/P biliopancreatic diversion with duodenal switch,Vitamin deficiency Take by mouth 1 Capsule in the morning AND 1 Capsule before bedtime. 180 Capsule 06/25/2022 Active Polyethylene Glycol 3350 17 GM Oral Packet Take 1 Packet by mouth in the morning. Active Syringe Luer Lock 25G X 5/8" 3 ML For vitamin B12 injections 16 Each 2 11/02/2022 Active Hydrocortisone 2.5 % External OintmentIndications: Contact dermatitis, unspecified contact dermatitis type, unspecified trigger,Atopic dermatitis, unspecified type Apply 2 daily (or more if itchy instead of scratching) to rash on face 454 g 1 12/16/2022 Active Ferrous Sulfate 325 (65 Fe) MG Oral Tablet Take 1 Tablet by mouth daily with breakfast. Active QC Womens Daily Multivitamin Oral Tablet Take 1 Tablet by mouth in the morning and 1 Tablet before bedtime. Active Albuterol Sulfate 0.63 MG/3ML Inhalation Nebulization Solution (Accuneb)Indications :Acute hypoxemic respiratory failure (HCC) Inhale 1 Vial via nebulizer every 4 hours as needed for Wheezing. 120 mL 1 01/25/2023 Active Compressor NebulizerIndications :Acute hypoxemic respiratory failure (HCC) Inhale via nebulizer. Use as directed. 1 Each 1 01/25/2023 Active DIURETIC TITRATION PLAN If no improvement on day 3, contact heart failure managing provider. 1 Each 02/16/2023 Active Vitamin C 500 MG Oral Tablet (Ascorbic Acid) Take 1 Tablet by mouth in the morning. Active metOLazone 2.5 MG Oral Tablet (Zaroxolyn) Take 1 Tablet by mouth daily as needed (fluid retention - when directed). 30 Tablet 3 04/04/2023 Active Triamcinolone Acetonide 0.1 % External Ointment (Aristocort)Indicati ons:Contact dermatitis, unspecified contact dermatitis type, unspecified trigger,Atopic dermatitis, unspecified type Apply 2x daily (or more if itchy instead of scratching) to rash on body 454 g 1 06/16/2023 Active Fexofenadine HCl 180 MG Oral Tablet (Tiny Allergy) Take 1 Tablet by mouth in the morning. 90 Tablet 3 06/24/2023 Active Trolamine Salicylate 10 % External Cream Apply topically to affected area as needed. Apply to affected area Active Albuterol Sulfate HFA 108 (90 Base) MCG/ACT Inhalation Aerosol Solution Inhale 2 Puffs by mouth every 4 hours as needed for Shortness of Breath. 54 g 1 07/21/2023 Active Digoxin 125 MCG Oral Tablet (Lanoxin) Take 1 Tablet by mouth in the morning. 90 Tablet 3 07/21/2023 Active Vitamin D3 125 MCG (5000 UT) Oral Tablet Disintegrating Take 1 Tablet by mouth daily. Active Vitamin A 2400 MCG (8000 UT) Oral Tablet Take 1 Tablet by mouth in the morning. Active Vitamin E 180 MG (400 UNIT) Oral Capsule Take 1 Capsule by mouth in the morning. Active Vitamin K2 100 MCG Oral Capsule Take 1 Capsule by mouth in the morning. Active Warfarin Sodium 2.5 MG Oral Tablet (Coumadin)Indication s:Anticoagulation management encounter,halfway current use of anticoagulant therapy,Permanent atrial fibrillation (HCC) TAKE ONE TO TWO TABLETS BY MOUTH ONCE DAILY DIRECTED 200 Tablet 3 11/23/2023 11/22/19 25 Active [facility] Calcium Citrate+D3 Oral Tablet Take 4 Tablets by mouth in the morning and 4 Tablets before bedtime. 630mg/12.5mcg. States she takes 3 in the morning and 3 in the evening. . Active Venlafaxine HCl 100 MG Oral Tablet (Effexor) Take 1 and 1/2 Tablets by mouth in the morning and before bedtime. 270 Tablet 3 11/28/2023 Active Additional Information Patient taking differently: (No dose reported), (No route reported), (No frequency reported), Reported on 02/29/2024 Levothyroxine Sodium 50 MCG Oral Tablet (Levoxyl) take one tablet by mouth daily 90 Tablet 3 12/23/2023 Active Torsemide 20 MG Oral Tablet (Demadex)Indications :Chronic diastolic heart failure (HCC) TAKE TWO TABLETS BY MOUTH IN THE MORNING 180 Tablet 3 12/28/2023 12/28/19 25 Active Calcitriol 0.25 MCG Oral Capsule (Rocaltrol)Indicatio ns:Hypocalcemia Take 2 Capsules by mouth in the morning and 2 Capsules before bedtime. 400 Capsule 2 12/30/2023 Active Spironolactone 25 MG Oral Tablet (Aldactone)Indicatio ns:Chronic diastolic heart failure (HCC) Take one-half tablet by mouth in the morning. 45 Tablet 3 01/11/2024 Active Omeprazole 20 MG Oral Capsule Delayed Release (PriLOSEC)Indication s:Gastro-esophageal reflux disease without esophagitis Take 1 Capsule by mouth in the morning. 100 Capsule 3 02/24/2024 Active Montelukast Sodium 10 MG Oral Tablet (Singulair) Take 1 Tablet by mouth at bedtime. 100 Tablet 3 03/01/2024 Active Blood Pressure MonitorIndications:L ightheadedness,Persi stent atrial fibrillation (HCC),Tachy-corin syndrome (HCC),Hypertensive heart disease with chronic diastolic congestive heart failure (HCC) Provide one blood pressure monitor with standard size arm cuff 1 Each 04/02/2024 Active Ondansetron HCl 4 MG Oral Tablet Take 1 Tablet by mouth every 8 hours as needed for Nausea. 30 Tablet 05/04/2024 Active Abdominal Binder/Elastic MedIndications:Jejun ostomy tube present (HCC),Postgastric surgery syndrome Use abdominal binder to hold in feeding tube due to skin irritation 1 Each 05/11/2024 Active Metoprolol Succinate ER 25 MG Oral Tablet Extended Release 24 Hour (toPROL XL)Indications:Perma nent atrial fibrillation (HCC) Take one and one-half tablets by mouth in the morning and one and one-half tablets in the evening. 200 Tablet 3 05/18/2024 Active hydrOXYzine HCl 10 MG Oral Tablet (Atarax)Indications: CLAUDINE (generalized anxiety disorder) Take 1 Tablet by mouth every 6 hours as needed for Anxiety or Itching. 40 Tablet 1 06/13/2024 Active Hospital, Clinic, or Other Facility Administered Medication Ordered Dose Route Frequency Start Date End Date Status vitamin b-12 (Cyanocobalamin) inj 1,000 mcgIndications:S/P biliopancreatic diversion with duodenal switch 1000 mcg IM [id number] 02/01/2023 Acti ve documented as of this encounter (statuses as of 07/06/2024) Active Problems Problem Noted Date Diagnosed Date Food insecurity 06/25/2024 Overview: Per [facility] Protocol Sacroiliitis, not elsewhere classified 01/04/202 4 Severe protein-calorie malnutrition 07/04/2023 Jejunostomy tube present 07/02/2023 Last Assessment & Plan: Recommended changing dressing regularly to keep site dry and limit skin irritation Seasonal allergies 07/02/2023 History of iron deficiency 07/02/2023 History of vitamin D deficiency 07/02/2023 Major depressive disorder 07/02/2023 Gastroesophageal reflux disease 07/02/2023 History of gastric bypass 07/02/2023 Senile osteoporosis 06/13/2023 At risk for falls 04/04/2023 Last Assessment & Plan: Doing balance classes at [address] Primary insomnia 02/28/2023 Hypocalcemia 02/15/2023 Hyperlipidemia 02/01/2023 Hyperparathyroidism 02/01/2023 PEG (percutaneous endoscopic gastrostomy) status 01/19/2023 Last Assessment & Plan: Has some itching around the site. Advised to use clotrimazole cream to the area d/t concern for possible fungal infection. Has follow up with PCP on 05/10. Peripheral vascular disease 11/16/2022 COPD, group B, by GOLD 2017 classification 10/25 Overview: Per COPD GOLD Classification Last Assessment & Plan: Breathing stable Has albuterol rescue inhaler and nebs if needed Pulmonary hypertension 10/20/2022 On tube feeding diet 09/03/2022 Unintentional weight loss of 10% body weight within 6 months 06/11/2022 Chronic diastolic heart failure 05/25/2022 Lumbar radiculopathy 04/27/2022 Last Assessment & Plan: Suspect some of her nausea could be secondary from mixing pain medication. Advised her to stop oxycodone. She was just given rx for tramadol by pcp. Advised to use this and tylenol arthritis q 8 hours BTP. She was rubbing her L leg and complaining of severe pain. Increased gabapentin to 300mg TID. Will have nurse follow up with call tomorrow. She continues to follow up with interventional pain mgmt but they cannot do injection until May. Hypertensive heart disease w ith chronic diastolic congestive heart failure 11/09/2021 Last Assessment & Plan: "RED FLAG" HF Symptoms: Leg Swelling (Examples: "I can't wear certain socks or shoes", "My pants feel tight") Abdominal Bloating (Examples: "I can't wear certain pants", "My belly feels hard", "I look ") Increased dyspnea on exertion (Example: "I can't walk to the kitchen or up the stairs") Medication Regimen: Beta Rupesh Therapy: Metoprolol Succinate (ER) BOBBI Inhibitor/ARB Therapy: No BOBBI/ARB/ARNI secondary to: hypotension Diuretic therapy: Torsemide Aldactone SGLT2 Inhibitor: No Current SGLT2 (Describe in the Comments) Remote Patient Monitoring Vendor: [facility] Device(s): Connected Scale Traditional Pulse Ox Self - Management Plan Double dose of Torsemide for 3 days Exacerbation Plan Contact the HF Provider for IV Lasix guidance Additional Comments: Euvolemic today, does not recall last time DTP used Moderate persistent asthma without complication 10/26/2021 Overview: Per COPD GOLD Classification Last Assessment & Plan: Stable Continue Zafirlukast 20 mg BID, Advair 250/50 BID, albuterol PRN Severe tricuspid regurgitation 05/27/2021 Nonrheumatic tricuspid valve regurgitation 04/08 Last Assessment & Plan: Euvolemic Anemia 04/07/2021 Last Assessment & Plan: Last hemoglobin 03/25 11.5. Stable. 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 -continue follow-up with Cardiology. Persistent atrial fibrillation 06/29/2018 Last Assessment & Plan: Regular rhythm today. Rate controlled. -continue Coumadin, metoprolol, digoxin Venous stasis of both lower extremities 03/06/20 18 PAT (paroxysmal atrial tachycardia) 03/06/2018 Essential tremor 02/21/2017 Moderate malnutrition 06/11/2016 Last Assessment & Plan: J tube feeds Following closely with RDN Personal history of gastric bypass 02/16/2016 Overview: 2004 Repaired Sep 2105, along with ventral hernia repair. 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 Overview: ICD-10 update of inactive term Last Assessment & Plan: H/O Previous Bariatric Surgery: RYGB; OPEN INCISION; Date; 04/06/04 Original Weight; [address] [facility]; [facility] [place], [place] Surgeon; Dustin Smith MD REVISION; OPEN INCISIONRevision of gastrojejunostomy for gastrogastric fistula, distalization of marquita limb with 150 cm common channel Date; 09/25/15 [facility]; [facility] [place] [place] Surgeon; Dustin Smith MD Repair recurrentincisional or ventral hernia, age 5 years or over; reducible06/09/16 Implantation of mesh or other prosthesis for incisional or ventral hernia repair. documented as of this encounter (statuses as of 07/06/2024) Resolved Problems Problem Noted Date Diagnosed Date Resolved Date Asthma 07/02/2023 01/31/2024 Atrial fibrillation 07/02/2023 10/20/19 24 Fall 02/15/2023 01/31/2024 Last Assessment & Plan: Continues to have lower back pain down her right leg. Imaging negative for fracture. -follow-up appointment scheduled with Pain Management for injection on 02/23. Gastroenteritis 02/15/2023 06/23/2023 Last Assessment & Plan: Resolving Severe malnutrition 10/20/2022 01/31/20 24 Last Assessment & Plan: Tube feeds recently restarted at 4 bottles of Peptamen per day. 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 Taking as prescribed Much improved today on exam. Finish ABX Closed fracture of sacrum an d coccyx with routine healing 02/04/2022 09/30/2022 Last Assessment & Plan: Improved since increase tramadol to every 6 hr. Continue tylenol Pain management 05/26 Age-related osteoporosis wit h current pathological fracture 02/04/2022 02/22/2022 Permanent atrial fibrillation 05/27/2021 02/22/2022 Last Assessment & Plan: Stable. -Rate control with Toprol XL 25mg daily and digoxin 125 mcg daily -Anticoagulation with warfarin managed by the anti-coagulation clinic. -continue current medications. Food insecurity 05/25/2021 10/29/2021 Overview: Per [facility] Protocol Chronic atrial fibrillation 05/11/2021 02/04/2022 Chronic diastolic heart failure 04/07/2021 02/22/2022 Chronic heart failure with p reserved ejection fraction 12/25/2020 01/31/2024 Unspecified asthma, uncomplicated 12/25/2020 02/22/2022 Severe depression 08/06/2019 02/04/2022 History of colon polyps 01/16/201901/15 Overview: Historical. PSVT (paroxysmal supraventri cular tachycardia) 03/06/2018 01/16/2019 COPD, severity to be determined 03/06/2018 10/29/2021 Overview: Per COPD GOLD Classification Fibroid, uterine 02/27/2018 09/11/2018 Overview: October 2017 CT scan for bowel-related issues. REPRODUCTIVE ORGANS: There are heterogeneous masses in the uterus, most likely fibroids. 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 Obesity, morbid (more than 1 00 lbs over ideal weight or BMI > 40) 04/01/2015 02/21/2017 Mild obstructive sleep apnea 03/04/2015 09/12/2017 Overview: CPAP 7 cwp AHP Gastro-esophageal reflux dis ease without esophagitis 11/22/2013 01/31/2024 Last Assessment & Plan: Symptoms controlled on omeprazole Dyslipidemia, goal LDL below 130 08/21/2013 02/18/2016 Obesity, morbid (more than 1 00 lbs over ideal weight or BMI > 40) 01/13/2010 04/01/2015 Overview: Per Obesity Taxonomy ICD-10 update of inactive term Palpitations 08/12/2009 10/23/2018 Benign neoplasm of colon 07/17/200911/2018 Overview: adenomatous tissue bx, f/u in 3 yrs Postmenopausal bleeding 10/01/200807/19 Polyp of corpus uteri 10/01/20082016 Hernia, incisional 02/01/2006 7 ABDOMINAL PANNICULITIS 06/29/200508/15 INTEST POSTOP NONABSORB 08/26/200401/15 Family history of other card iovascular diseases 04/10/2002 03/11/2020 Overview: ICD-10 update of inactive term Historical. HTN, goal below 130/80 04/10/200202/22 CHRONIC OBSTRUCTIVE ASTHMA W /OBSTRUCTIVE PULM DIS; WO/MENTION OF STATUS ASTHMA 015 OBESITY, UNSPECIFIED 010 Overview: Per Obesity Taxonomy documented as of this encounter (statuses as of 07/06/2024) Immunizations Name Administration Dates Next Due COVID-19 mRNA, LNP-s, No Pre serve, 2-Dose Series ([employer]) 08/19/2021,01/01/2021,12/11/2020 COVID-19, MRNA-LNP, 23-24, P F, 30 MCG/0.3 mL, 12 YRS AND ABOVE, IM ([employer]) 03/14/2024,08/08/2023 COVID-19, MRNA-LNP, 24-25, P R, 30MCG/0.3ML, IM, 12YRS AND ABOVE ([employer]) 06/27/2024 Covid-19 Ad26, Single Dose ([employer]) 01/01/2021,12/11/2020 Covid-19, Mrna, Lnp-s, Pf, B ivalent, 30 Mcg, IM, 12 yrs and above ([employer]) 07/06/2022 Pneumococcal Conjugate Vacc, 13 Valent (Prevnar) 08/15/2017,06/11/2016 Pneumococcal Polysaccharide PPV23 (Pneumovax) 08/14/2020,09/11/2018,07/01/2009 RSV Vac., Bivalent, Perfusio n F, Pf,0.5 Ml (Abrysvo) 12/12/2023 Seasonal Influenza Virus Vac cine, Unspecified Formulation 07/08/2018,07/02/2017,06/17/2017,07/15,06/27/2014,2013,07/01/2009 ,08/12/2008,08/11/2006,10/26/2004 Seasonal Influenza, High Dos e, Trivalent, PF, IM (Fluzone HD) 06/27/2024,07/08/2018 Seasonal Influenza, Quadriva lent Hd (Fluzone Hd) 06/23/2023,06/23/2022,07/09/2021 Seasonal Influenza, Quadriva lent Hd, 65+ Yrs 08/14/2020 Seasonal Influenza, Quadriva lent, No Preserve, IM 07/08/2018,07/02/2017,07/15/2016,07/21 Seasonal Influenza, Trivalen t, (IIV3), with Preserv, (Fluzone) 06/27/2014,2013,07/01/2009,08/12,08/11/2006,10/26/2004 TD, Preservative Free 07/08/2018 TDAP (age 10 and older)(Boostrix) 07/08/2018 TDAP, Age 7 and older, IM (Adacel) 08/20/2008 Varicella Zoster Vaccine (Adult) 08/21/2013 Zoster Vaccine Recombinant (Shingrix) 08/11/2022 ,05/28/2022 documented as of this encounter Social History Tobacco Use Types Packs/Day Years Used Date Smoking Tobacco: Never Passive Smoke Exposure: Current Smokeless Tobacco: Never Comments:second hand smoke Alcohol Use Standard Drinks/Week Comments No 0 (1 standard drink = 0.6 oz pur e alcohol) PHQ-2 Answer Date Recorded PHQ Adult Total Score 2 11/08/2023 Hunger Vital Sign Answer Date Recorded Within the past 12 months, y ou worried that your food would run out before you got the money to buy more. Sometimes true Within the past 12 months, t he food you bought just didn't last and you didn't have money to get more. Sometimes true 01/2024 Childcare Answer Date Recorded Do you feel overwhelmed with taking care of a child, family member or friend? No 06/20/2024 Does your family need help f inding childcare? (Household - for ages 0-17 years) Not on file 06/20/2024 Clothing Answer Date Recorded Have you been unable to get clothing when it was really needed? No 06/20/2024 Is your family able to get c lothes or diapers when needed? (Household - for ages 0-17 years) Not on file 06/20/2024 Personal Safety Answer Date Recorded Do you feel unsafe or have concerns for your saf ety? No 06/20/2024 Do you have concerns for you r family's safety? (Household - for ages 0-17 years) Not on file 06/20/2024 Utilities Answer Date Recorded Do you have trouble paying y our heating, water, or electric bill? Yes 06/20/2024 Is your family able to pay t he heat, water, or electric bill? (Household - for ages 0-17 years) Not on file 06/20/2024 Does your family have access to good internet? (Household - for ages 0-17 years) Not on file 06/20/2024 Employment Status Answer Date Recorded Are you unemployed or without regular income? No 06/20/2024 Does the household have a re gular source of income? (Household - for ages 0-17 years) Not on file 06/20/2024 Social Connections Answer Date Recorded How often do you feel lonely or isolated from th ose around you? Never 06/20/2024 Financial Resource Strain Answer Date R ecorded Do you have any trouble payi ng for your medications, or do you think you might in the future? No 06/20/2024 Does your family have troubl e paying for medicine? (Household - for ages 0-17 years) Not on file 06/20/2024 Transportation Needs Answer Date Record ed READ ONLY Do you have troubl e getting a ride to medical visits or work? Never True 06/20/2024 Does your family have a hard time getting a ride to doctors visits? (Household - for ages 0-17 years) Not on file 06/20/2024 Has lack of transportation k ept you from medical appointments, meetings, work, or from getting things needed for daily living? Check all that apply. Yes, it has kept me from medical appointments 06/20/2024 Do you (or your family) have trouble finding or paying for a ride (transportation)? (Household - for ages 0-17 years) Not on file 06/20/2024 Housing Stability Answer Date Recorded Do you currently live in a s helter or have no steady place to sleep at night? No 06/20/2024 READ ONLY Do you think you a re at risk of becoming homeless? No 06/20/2024 Does your family worry about paying for your home or becoming homeless? (Household - for ages 0-17 years) Not on file 0 06/20/2024 Are you homeless or worried that you might be in the future? Yes 06/20/2024 Are you (or your family) janet eless or worried that you might be in the future? (Household - for ages 0-17 years) Not on file Food Insecurity Answer Date Recorded Do you need food for this week? No 06/20/2024 Are you able to get enough f ood for your family? (Household - for ages 0-17 years) Not on file 06/20/2024 Does your family need food t his week? (Household - for ages 0-17 years) Not on file 06/20/2024 Do you always have enough fo od for your family? (Household - for ages 0-17 years) Not on file 06/20/2024 Sex and Gender Information Value Date Recorded Sex Assigned at Female 01/29/2019 9:29 AM EDT Gender Identity Female 01/29/2019 9:29 AM EDT Sexual Orientation Straight 01/29/2019 9: 29 AM EDT Job Start Date Occupation Industry Not on file Not on file Not on file documented as of this encounter Functional Status Functional Status Response Date of Assess ment Are you deaf or do you have serious difficulty h earing? Yes 07/01/2023 Are you blind or do you have serious difficulty seeing, even when wearing glasses? No 07/01/2023 Do you have serious difficul ty walking or climbing stairs? (5 years old or older) No 07/04/2023 Do you have difficulty dress ing or bathing? (5 years old or older) No 07/01/2023 Because of a physical, menta l, or emotional condition, do you have difficulty doing errands alone such as visiting a doctor s office or shopping? (15 years old or older) No 07/01/20 Cognitive Status Response Date of Assessm ent Because of a physical, menta l, or emotional condition, do you have serious difficulty concentrating, remembering, or making decisions? (5 years old or older) No 07/01/2023 documented as of this encounter Miscellaneous Notes * Telephone Encounter - Emmy Esposito LPN - 07/05/2024 11:02 AM EDT Call placed to patient. Notified her that form was faxed to [facility] with fax confirmation received. Also provided her the phone number to call to arrange payment plan - [phone]. Pt did repeat correct phone number back to me. No further questions at this time. Will keep encounter open to f/u on abd binder order sent through [employer]. * Telephone Encounter - Nettie Seymour OSA - 07/05/2024 10:59 AM EDT Returned call * Telephone Encounter - Emmy Esposito LPN - 07/04/2024 4:09 PM EDT Pending [employer] To [facility] [email or web address] form faxed with fax confirmation received. Call placed to patient - no answer. Message left for her to return call. Need to inform pt that shewill need to contact [facility] at [phone] to set up a payment plan. * Telephone Encounter - Emmy Esposito LPN - 06/29/2024 11:11 AM EDT Form received from [employer]. On Dr. Kimble's desk. Request for abdominal binder submitted through [employer]. * Telephone Encounter - Olya Kimble DO - 06/27/2024 2:29 PM EDT Please do the following: Call Pending [employer] [facility] [email or web address] for form for us to complete to help get her electricity covered and keep it from being shut off. Put order for abdominal binder through [employer]. Let me know if this is not covered. documented in this encounter Plan of Treatment Upcoming Encounters Date Type Department Care Team (Late st Contact Info) Description 07/06/2024 4:00 PM EDT Home Visit [facility] [address] [address] Bonny Ferrara, RN 132 [facility] [place] [address] 07/09/2024 2:20 PM EDT Anticoagulation Family Practice 65 [facility] 293 [place] [address] College, Pharmacist [address] [place] [address] 07/09/2024 3:00 PM EDT Office Visit Family Practice 65 [facility] [address] [place] [phone] Olya Kimble, DO 293 [facility] [place] [address] 07/11/2024 10:00 AM EDT Office Visit Family Practice 65 [facility] 293 [place] [phone] Olya Kimble, DO 293 [place] [address] 07/24/2024 12:00 PM EDT Home Visit Care at Home [address] [place] [address] Kristi Raza PA-C [address] [place] [address] 07/31/2024 10:00 AM EDT Home Visit [facility], [facility] [address] [address] Bonny Ferrara, RN [address] [address] 11/30/2024 11:30 AM EST Office Visit Cardiology, [facility] [address] [address] Tejas Haskins, DO [address] [address] 01/03/2025 1:00 PM EDT Office Visit General Surgery, [facility] [address] [place] [address] Terry Link MD [address] [facility] [place] [address] Scheduled Procedures Name Priority Associated Diagnoses Date/Ti me COLONOSCOPY FLEXIBLE PROXIMAL DIAGNOSTIC Recall History of colon polyps Health Maintenance Due Date Last Done Comments Alpha-1 Antitrypsin 1970 Cologuard 1997 Fecal Occult Blood Test 1997 Sigmoidoscopy 1997 Adult Wellness Visit 12/22/2023 12/21/2022 DXA Scan 07/07/2024 07/07/2022, 06/18, 08/29/2017 Depression Monitoring 11/08/2024 11/08/2023 DIG LEVEL FOR MEDICATION MONITORING YEARLY 03/29/2025 03/29/2024, 11/08/2023, 04/27/2023, Additional history exists Mammogram 03/29/2025 03/29/2024, 03/17, 03/28/2023, Additional history exists TSH 03/29/2025 03/29/2024, 0512/2023, 02/03/2024, Additional history exists O2 ASSESSMENT COMPLETED IN PAST YEAR FOR COPD 06/27/2025 06/27/2024 Colonoscopy 11/13/2026 11/13/2021, 08/18, 03/22/2016, Additional history exists Colorectal Cancer Screening 11/13/2026 DTap/Tdap Vaccines (4 - Td or Tdap) 07/08/2028 07/08/2018, 07/08/2018, 08/20/2008 Lipid Panel 11/15/2028 11/15/2023, 02/2023, 06/14/2022, Additional history exists Pneumococcal Vaccine: 65+ Years Completed 08/14/2020, 09/11/2018, 08/15/2017, Additional history exists RETIRED - COLONOSCOPY-EVERY 5 YRS AGES 18-100 Discontinued 11/13/2021, 09/14/2016, 03/22/2016, Additional history exists Zoster Vaccines Completed 08/11/2022, 05/17, 08/21/2013 VITAMIN D LEVEL ONCE IN A LIFETIME-USE SMARTSET# [id number] Completed 02/03/2024, 11/15/2023, 06/13/2023, Additional history exists COVID-19 Vaccine Completed 06/27/2024, , 08/08/2023, Additional history exists Influenza Vaccine (FLU shot) Completed 06/27/2024, 06/23/2023, 06/23/2022, Additional history exists HPV (Gardasil) Vaccine Aged Out No lo nger eligible based on patient's age to complete this topic Hepatitis B Vaccine Aged Out No longe r eligible based on patient's age to complete this topic MENINGOCOCCAL (MENACTRA/MENVEO) Aged Out No longer eligible based on patient's age to complete this topic documented as of this encounter Medical Devices Implanted Type Area Real Estate Inspector Device Identifier Shelf Expiration Date Model / Serial / Lot Vitamesh Square 30cm X 30cm - [id number] Implanted:Qty: 1 on 06/09/2016 by Dustin Smith MD at OR [facility] [place] [place] N/A: Abdomen [employer] 03/16/2021 [id number] / / [id number] documented as of this encounter Advance Directives * Full Code (Latest Code Status on File) Date Activated Date Inactivated Comments 07/01/2023 9:29 PM 07/04/2023 11:07 PM This order reflects the patients wishes and were consensually agreed upon. Question Answer Comments Discussion of Advance Directives occurred with: Patient * Full Code Date Activated Date Inactivated Comments 07/01/2023 5:32 PM 07/01/2023 9:29 PM This order r eflects the patients wishes and were consensually agreed upon. Question Answer Comments Discussion of Advance Directives occurred with: Patient Does the patient have a Living Will? No Does the patient have Health Care Power of Attor alfie? No * Full Code Date Activated Date Inactivated Comments 08/31/2022 7:43 PM 09/03/2022 11:05 PM This orde r reflects the patients wishes and were consensually agreed upon. Question Answer Comments Discussion of Advance Directives occurred with: Patient * Full Code Date Activated Date Inactivated Comments 08/31/2022 2:22 PM 08/31/2022 7:43 PM Question Answer Comments Discussion of Advance Direct milan occurred with: Not Discussed due to patient's condition * Full Code Date Activated Date Inactivated Comments 06/09/2016 10:36 AM 06/11/2016 6:34 PM Question Answer Comments Discussion of Advance Directives occurred with: Not Discussed Does the patient have a Living Will? No Does the patient have Health Care Power of Attor alfie? No Healthcare Agents on File Name Relationship Healthcare Agent [facility] Communication Praful Higgins Spouse Health Care Agent Care Teams [employer] Senior [employer] Relationship Specialty Start Date End Date Olya Kimble DO 293 [place] [address] PCP - General Family Medicine 03/29/24 documented as of this encounter
--- OUTSIDE RECORDS SUMMARY | 2024-07-10 03:38 | External Medical Summary | Summary of Care ---
Author Name Unknown Organization [facility] Address [address] [place] [address] Phone [phone] Care Team Providers Care Jewel Lathe Operator Name Role Phone Olya Kimble DO Primary Care Provider [phone] Reason for Visit * Reason Onset Date Comments Advice 06/27/202407/04 Order Request 06/27/202406/29; 07/05; 07/06 Encounter Details Date Type Department Care Team (Late st Contact Info) Description 06/27/2024 Telephone Family Practice 65 [facility] [address] [place] [address] Olya Kimble [address] [place] [address] Advice (07/04); Order Request (06/29; 07/05; ... Allergies Active Allergy Reactions Criticality Noted Date [...] 2.5 MG Oral Tablet (Coumadin)Indication s:Anticoagulation management encounter,[facility] current use of anticoagulant therapy,Permanent atrial fibrillation [...] diversion with duodenal switch 1000 mcg IM [id number] 02/01/2023 Acti ve documented as of this encounter (statuses as of 07/06/2024) Active Problems Problem Noted Date Diagnosed Date Food insecurity 06/25/2024 Overview: Per [facility] Protocol Sacroiliitis, not elsewhere classified 4 Severe protein-calorie malnutrition 07/04/2023 Jejunostomy tube [...] in the Comments) Remote Patient Monitoring Vendor: [facility] Device(s): Connected Scale Traditional Pulse Ox Self [...] OPEN INCISION; Date; 04/06/04 Original Weight; [address] [facility]; [facility] Surgeon; Dustin Smith MD REVISION; OPEN INCISIONRevision of gastrojejunostomy for gastrogastric fistula, distalization of marquita limb with 150 cm common channel Date; 09/25/15 [facility]; [facility] Surgeon; Dustin Smith MD Repair recurrentincisional or [...] mRNA, LNP-s, No Pre serve, 2-Dose Series ([employer]) 08/19/2021,01/01/2021,12/11/2020 COVID-19, MRNA-LNP, 23-24, P F, 30 MCG/0.3 mL, 12 YRS AND ABOVE, IM ([employer]) 03/14/2024,08/08/2023 COVID-19, MRNA-LNP, 24-25, P R, 30MCG/0.3ML, IM, 12YRS AND ABOVE ([employer]) 06/27/2024 Covid-19 Ad26, Single Dose ([employer]Bram[employer]ol[employer]Bram[employer]ol) 01/01/2021,12/11/2020 Covid-19, Mrna, Lnp-s, Pf, B ivalent, 30 Mcg, IM, 12 yrs and above ([employer]) 07/06/2022 Pneumococcal Conjugate Vacc, 13 Valent (Prevnar) [...] Telephone Encounter - Emmy Esposito LPN - 07/06/2024 4:46 PM EDT Received message from [employer] that this order was to be filled approx 1 month ago by O. [employer] is to reach out to [facility] to follow up. Keeping TE open until resolved. * Telephone Encounter - Emmy Esposito LPN - 07/05/2024 11:02 AM EDT Call placed to patient. Notified her that form was faxed to [facility] [employer] with fax confirmation received. Also provided her the phone number to call to arrange payment plan - [phone]. Pt did repeat correct phone number back to me. No further questions at this time. Will keep encounter open to f/u on abd binder order sent through [employer]. * Telephone Encounter - Nettie Seymour OSA - 07/05/2024 10:59 AM EDT Returned call * Telephone Encounter - Emmy Esposito LPN - 07/04/2024 4:09 PM EDT [facility] form faxed with fax confirmation received. Call placed to patient - no answer. Message left for her to return call. Need to inform pt that shewill need to contact [facility] at [phone] to set up a payment plan. * Telephone Encounter - Emmy Esposito LPN - 06/29/2024 11:11 AM EDT Form received from [facility]. On Dr. Kimble's desk. Request for abdominal binder submitted through [employer]. * Telephone Encounter - Olya Kimble DO - 06/27/2024 2:29 PM EDT Please do the following: Call [facility] for form for us to complete to help get her electricity covered and keep it from being shut off. Put order for abdominal binder through [employer]. Let me know if this is not covered. documented in this encounter Plan of Treatment Upcoming Encounters Date Type Department Care Team (Late st Contact Info) Description 07/09/2024 2:20 PM EDT Anticoagulation Family Practice 65 [facility] 293 [place] [phone] College, Pharmacist [address] [place] [address] 07/09/2024 3:00 PM EDT Office Visit Family Practice [address] [place] [address] 293 [place] [phone] Olya Kimble DO 293 [place] [address] 07/11/2024 10:00 AM EDT Office Visit Family Practice [address] [place] [address] [address] [place] [phone] Olya Kimble, [address] [place] [address] 07/24/2024 12:00 PM EDT Home Visit Care at Home [address] [place] [address] Kristi Raza PA-C [address] [place] [address] 07/31/2024 10:00 AM EDT Home Visit [facility], [facility] [address] [address] Bonny Ferrara, RN [address] [address] 11/30/2024 11:30 AM EST Office Visit Cardiology, [facility] [address] [address] Tejas Haskins, [address] [place] [place] [address] 01/03/2025 1:00 PM EDT Office Visit General Surgery, [facility] [address] [place] [address] Terry Link MD [address] [place] [address] Scheduled Procedures Name Priority Associated Diagnoses Date/Ti [...] 03/28/2023, Additional history exists TSH 03/29/2025 03/29/2024, 05/0 12/2023, 02/03/2024, Additional history exists O2 ASSESSMENT COMPLETED [...] D LEVEL ONCE IN A LIFETIME-USE SMARTSET# [id number] Completed 02/03/2024, 11/15/2023, 06/13/2023, Additional history exists [...] this encounter Medical Devices Implanted Type Area Downstream Biomanufacturing Technician Device Identifier Shelf Expiration Date Model / Serial / Lot Vitamesh Square 30cm X 30cm - [id number] Implanted:Qty: 1 on 06/09/2016 by Dustin Smith MD at [place] [facility] N/A: Abdomen [employer] 03/16/2021 [id number] / / [id number] documented as of this encounter Advance Directives [...] Agents on File Name Relationship [facility] Praful Higgins Spouse Health Care Agent Care Teams Jewel Lathe Operator Relationship Specialty Start Date End Date Olya Kimble DO [address] [place] [address] PCP - General Family Medicine 03/29/24 documented as of this encounter
--- OUTSIDE RECORDS SUMMARY | 2024-07-10 03:38 | External Medical Summary | Summary of Care ---
Author Name Unknown Organization [facility] Address [address] [place] [address] Phone [phone] Care Team Providers Care Collection Agent Name Role Phone Olya Kimble DO Primary Care Provider [phone] Reason for Visit * Reason Onset Date Comments Medication Refill 07/04/2024 Encounter Details Date Type Department Care Team (Late st Contact Info) Description 07/04/2024 Refill [facility] [address] [place] [phone] Olya Kimble DO [address] [place], [place] [phone] Allergies Active Allergy Reactions Criticality Noted Date Comments Denosumab High 02/22/2023 SEVERE HYPOCALCEMIA documented as of this encounter (statuses as of 07/05/2024) Medications Medication Sig Dispensed Refills Start Date End Date Status Mag-Oxide 200 MG Oral Tablet (Magnesium Oxide) Take 1 Tablet by mouth in the morning and 1 Tablet before bedtime. 2 Active Lidocaine 4 % External Patch Place 1 Patch topically on the skin daily. Active Dexamethasone Sodium Phosphate 4 MG/ML Injection Solution (Decadron) Inject intravenously 8 mg as needed for Anaphylaxis (severe allergic reaction) (To be administered in the event of anaphylactic reaction per [facility] IV iron anaphylaxis protocol). 2 mL 11 2 Active Acetaminophen 500 MG Oral Tablet (Tylenol) Take 2 Tablets by mouth 3 times a day as needed for Pain, Moderate. 100 Tablet 2 Active Zinc Sulfate 220 (50 Zn) MG Oral CapsuleIndications:S evere protein-calorie malnutrition (HCC),Intestinal postoperative nonabsorption,S/P biliopancreatic diversion with duodenal switch,Vitamin deficiency Take by mouth 1 Capsule in the morning AND 1 Capsule before bedtime. 180 Capsule 2 Active Polyethylene Glycol 3350 17 GM Oral Packet Take 1 Packet by mouth in the morning. Active Syringe Luer Lock 25G X 5/8" 3 ML For vitamin B12 injections 16 Each 2 3 Active Hydrocortisone 2.5 % External OintmentIndications: Contact dermatitis, unspecified contact dermatitis type, unspecified trigger,Atopic dermatitis, unspecified type Apply 2 daily (or more if itchy instead of scratching) to rash on face 454 g 1 3 Active Ferrous Sulfate 325 (65 Fe) MG [...] as needed for Wheezing. 120 mL 1 3 Active Compressor NebulizerIndications :Acute hypoxemic respiratory failure (HCC) Inhale via nebulizer. Use as directed. 1 Each 1 3 Active DIURETIC TITRATION PLAN If no improvement on day 3, contact heart failure managing provider. 1 Each 3 Active Vitamin C 500 MG Oral Tablet (Ascorbic Acid) Take 1 Tablet by mouth in the morning. Active metOLazone 2.5 MG Oral Tablet (Zaroxolyn) Take 1 Tablet by mouth daily as needed (fluid retention - when directed). 30 Tablet 3 3 Active Triamcinolone Acetonide 0.1 % External Ointment (Aristocort)Indicati ons:Contact dermatitis, unspecified contact dermatitis type, unspecified trigger,Atopic dermatitis, unspecified type Apply 2x daily (or more if itchy instead of scratching) to rash on body 454 g 1 3 Active Fexofenadine HCl 180 MG Oral Tablet (Tiny Allergy) Take 1 Tablet by mouth in the morning. 90 Tablet 3 3 Active Trolamine Salicylate 10 % External Cream Apply topically to affected area as needed. Apply to affected area Active Albuterol Sulfate HFA 108 (90 Base) MCG/ACT Inhalation Aerosol Solution Inhale 2 Puffs by mouth every 4 hours as needed for Shortness of Breath. 54 g 1 3 Active Digoxin 125 MCG Oral Tablet (Lanoxin) Take 1 Tablet by mouth in the morning. 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 630mg/12.5mcg. States she takes 3 in the morning and 3 in the evening. . Active Venlafaxine HCl 100 MG Oral Tablet (Effexor) Take 1 and 1/2 Tablets by mouth in the morning and before bedtime. 270 Tablet 3 4 Active Additional Information Patient taking differently: (No dose reported), (No route reported), (No frequency reported), Reported on 02/29/2024 Levothyroxine Sodium 50 MCG Oral Tablet (Levoxyl) take one tablet by mouth daily 90 Tablet 3 4 Active Torsemide 20 MG Oral Tablet (Demadex)Indications :Chronic diastolic heart failure (HCC) TAKE TWO TABLETS BY MOUTH IN THE MORNING 180 Tablet 3 4 12/28/19 25 Active Calcitriol 0.25 MCG Oral Capsule (Rocaltrol)Indicatio ns:Hypocalcemia Take 2 Capsules by mouth in the morning and 2 Capsules before bedtime. 400 Capsule 2 4 Active Spironolactone 25 MG Oral Tablet (Aldactone)Indicatio ns:Chronic diastolic heart failure (HCC) Take one-half tablet by mouth in the morning. 45 Tablet 3 4 Active Omeprazole 20 MG Oral Capsule Delayed Release (PriLOSEC)Indication s:Gastro-esophageal reflux disease without esophagitis Take 1 Capsule by mouth in the morning. 100 Capsule 3 4 Active Montelukast Sodium 10 MG Oral Tablet (Singulair) Take 1 Tablet by mouth at bedtime. 100 Tablet 3 4 Active Blood Pressure MonitorIndications:L ightheadedness,Persi stent atrial fibrillation (HCC),Tachy-corin syndrome (HCC),Hypertensive heart disease with chronic diastolic congestive heart failure ([facility]) Provide one blood pressure monitor with standard size arm cuff 1 Each 4 Active Ondansetron HCl 4 MG Oral Tablet Take 1 Tablet by mouth every 8 hours as needed for Nausea. 30 Tablet 4 Active Abdominal Binder/Elastic MedIndications:Jejun ostomy tube present ([facility]),Postgastric surgery syndrome Use abdominal binder to hold in feeding tube due to skin irritation 1 Each 4 Active Metoprolol Succinate ER 25 MG Oral Tablet Extended Release 24 Hour (toPROL XL)Indications:Perma nent atrial fibrillation (HCC) Take one and one-half tablets by mouth in the morning and one and one-half tablets in the evening. 200 Tablet 3 4 Active hydrOXYzine HCl 10 MG Oral Tablet (Atarax)Indications: CLAUDINE (generalized anxiety disorder) Take 1 Tablet by mouth every 6 hours as needed for Anxiety or Itching. 40 Tablet 1 4 Active Peptamen 1.5 Oral Liquid Administer 4 containers daily , as directed at 40ml/hr continuous J tube feeds, via feeding pump. 72953 mL 11 4 Active Peptamen 1.5 Oral Liquid Administer 4 containers daily , as directed at 40ml/hr continuous J tube feeds, via feeding pump. 83690 mL 11 3 07/04/20 24 Discontinu ed(Refill) Hospital, Clinic, or Other Facility Administered Medication Ordered Dose Route Frequency Start Date End Date Status vitamin b-12 (Cyanocobalamin) inj 1,000 mcgIndications:S/P biliopancreatic diversion with duodenal switch 1000 mcg IM [id number] 02/01/2023 Acti ve documented as of this encounter (statuses as of 07/05/2024) Active Problems Problem Noted Date Diagnosed Date Food insecurity 06/25/2024 Overview: Per [facility] Protocol Major depressive disorder, recurrent episode, mo derate 11/18/2023 Sacroiliitis, not elsewhere classified Severe protein-calorie malnutrition 07/04/2023 Jejunostomy tube present [...] in the Comments) Remote Patient Monitoring Vendor: [facility] Device(s): Connected Scale Traditional Pulse Ox Self [...] OPEN INCISION; Date; 04/06/04 Original Weight; [facility]; [facility] Surgeon; Dustin Smith MD REVISION; OPEN INCISIONRevision of gastrojejunostomy for gastrogastric fistula, distalization of marquita limb with 150 cm common channel Date; 09/25/15 [facility]; [facility] Surgeon; Dustin Smith MD Repair recurrentincisional or ventral hernia, age 5 years or over; reducible06/09/16 Implantation of mesh or other prosthesis for incisional or ventral hernia repair. documented as of this encounter (statuses as of 07/05/2024) Resolved Problems Problem Noted Date Diagnosed Date Resolved Date Asthma 07/02/2023 01/31/2024 Atrial fibrillation 07/02/2023 10/20/19 24 Fall 02/15/2023 01/31/2024 Last Assessment & Plan: Continues to have lower back pain down her right leg. Imaging negative for fracture. -follow-up appointment scheduled with Pain Management for injection on 02/23. Gastroenteritis 02/15/2023 06/23/2023 Last Assessment & Plan: Resolving Severe malnutrition 10/20/2022 01/31/20 Last Assessment & Plan: Tube feeds recently [...] as of this encounter (statuses as of 07/05/2024) Immunizations Name Administration Dates Next Due COVID-19 mRNA, LNP-s, No Pre serve, 2-Dose Series ([email or web address]) 08/19/2021,01/01/2021,12/11/2020 COVID-19, MRNA-LNP, 23-24, P F, 30 MCG/0.3 mL, 12 YRS AND ABOVE, IM (Blink for iPhone and Android) 03/14/2024,08/08/2023 COVID-19, MRNA-LNP, 24-25, P R, 30MCG/0.3ML, IM, 12YRS AND ABOVE (Descomplica) 06/27/2024 Covid-19 Ad26, Single Dose (BloomReach/J&J) 01/01/2021,12/11/2020 Covid-19, Mrna, Lnp-s, Pf, B ivalent, 30 Mcg, IM, 12 yrs and above ([email or web address]) 07/06/2022 Pneumococcal Conjugate Vacc, 13 Valent (Prevnar) [...] Influenza, Trivalen t, (IIV3), with Preserv, (Fluzone) 06/27/2014,2013,07/01/2009,08/12,08/11/2006 TD, Preservative Free 07/08/2018 TDAP (age 10 [...] encounter Miscellaneous Notes * Telephone Encounter - Melany De La O PA-C - 07/05/2024 9:23 AM EDT Signed Prescriptions: Disp Refills Peptamen 1.5 Oral Liquid [id number] *11 Sig: Administer 4 containers daily , as directed at 40ml/hr continuous J tube feeds, via feeding pump. Authorizing Provider: MELANY DE LA O * Telephone Encounter - Olya Kimble DO - 07/05/2024 8:38 AM EDTPending Prescriptions: Disp Refills Peptamen 1.5 Oral Liquid 63680 *11 Sig: Administer 4 containers daily , as directed at 40ml/hr continuous J tube feeds, via feeding pump. * Telephone Encounter - Olya Kimble DO - 07/05/2024 8:38 AM EDT This is filled by [facility]. Already forwarded to Melany De La O. * Telephone Encounter - Olya Kimble DO - 07/05/2024 7:09 AM EDTPending Prescriptions: Disp Refills Peptamen 1.5 Oral Liquid [id number] *11 Sig: Administer 4 containersdaily , as directed at 40ml/hr continuous J tube feeds, via feeding pump. documented in this encounter Plan of Treatment Upcoming Encounters Date Type Department Care Team (Late st Contact Info) Description 07/06/2024 4:00 PM EDT Home Visit [facility], [facility] [address] [place] [address] Bonny Ferrara, RN 132 [facility] [place] [address] 07/09/2024 2:20 PM EDT Anticoagulation Family Practice [address] [facility] [address] [place] [address] College, Pharmacist [address] [place] [address] 07/09/2024 3:00 PM EDT Office Visit Family Practice [address] [place] [address] 293 [facility] [place] [address] Olya Kimble, DO [address] [place] [address] 07/11/2024 10:00 AM EDT Office Visit Family Practice [address] [place] [address] [address] [facility] [place] [address] Olya Kimble, DO [address] [place] [address] 07/24/2024 12:00 PM EDT Home Visit [facility] at Home [address] [place] [address] Kristi Raza PA-C [address] [place] [address] 11/30/2024 11:30 AM EST Office Visit Cardiology, [facility] [address] [place] [address] Tejas Haskins DO [address] [place] [address] 01/03/2025 1:00 PM EDT Office Visit General Surgery, [facility] [address] [place] [address] Terry Link MD [address] [place] [address] Scheduled Procedures Name Priority Associated Diagnoses Date/Ti [...] D LEVEL ONCE IN A LIFETIME-USE SMARTSET# 82160 Completed 02/03/2024, 11/15/2023, 06/13/2023, Additional history exists [...] this encounter Medical Devices Implanted Type Area New Autos Delivery Driver Device Identifier Shelf Expiration Date Model / Serial / Lot Vitamesh Square 30cm X 30cm - [id number] Implanted:Qty: 1 on 06/09/2016 by Dustin Smith MD at OR [facility] N/A: Abdomen [employer] 03/16/2021 [id number] / / [id number] documented as of this encounter Advance Directives [...] Agents on File Name Relationship Healthcare Agent [facility] p Communication Praful Higgins Spouse Health Care Agent Care Teams Collection Agent Relationship Specialty Start Date End Date Olya Kimble DO [address] [place] [address] PCP - General Family Medicine 03/29/24 documented as of this encounter
--- OUTSIDE RECORDS SUMMARY | 2024-07-10 03:38 | External Medical Summary | Summary of Care ---
Author Name Unknown Organization [facility] Address [address] [place] [address] Phone [phone] Care Team Providers Care Fluid Pump Operator Name Role Phone XenaOlya richardson Talha WELLS Primary Care Provider [phone] Reason for Visit * Reason Onset Date Comments [facility]: Maintenance 07/02/2024 Encounter Details Date Type Department Care Team (Late st Contact Info) Description 07/02/2024 Telephone [facility], [facility] [facility] [address] [place] [phone] Jane Wright, ADMISSIONS CLERK [address] [place] [address] [facility]: Maintenance Allergies Active Allergy Reactions Criticality Noted Date Comments Denosumab High 02/22/2023 SEVERE HYPOCALCEMIA documented as of this encounter (statuses as of 07/02/2024) Medications Medication Sig Dispensed Refills Start Date [...] the morning. 90 Tablet 3 06/24/2023 Active Peptamen 1.5 Oral Liquid Administer 4 containers daily , as directed at 40ml/hr continuous J tube feeds, via feeding pump. 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,Permanent atrial fibrillation [...] diversion with duodenal switch 1000 mcg IM [id number] 02/01/2023 Acti ve documented as of this encounter (statuses as of 07/02/2024) Active Problems Problem Noted Date Diagnosed Date [...] in the Comments) Remote Patient Monitoring Vendor: [facility] Device(s): Connected Scale Traditional Pulse Ox Self [...] OPEN INCISION; Date; 04/06/04 Original Weight; [facility]; [facility] Surgeon; Dustin Smith MD REVISION; OPEN INCISIONRevision of gastrojejunostomy for gastrogastric fistula, distalization of marquita limb with 150 cm common channel Date; 09/25/15 [facility]; [facility] Surgeon; Dustin Smith MD Repair recurrentincisional or ventral hernia, age 5 years or over; reducible06/09/16 Implantation of mesh or other prosthesis for incisional or ventral hernia repair. documented as of this encounter (statuses as of 07/02/2024) Resolved Problems Problem Noted Date Diagnosed Date [...] as of this encounter (statuses as of 07/02/2024) Immunizations Name Administration Dates Next Due COVID-19 mRNA, LNP-s, No Pre serve, 2-Dose Series (Appnique) 08/19/2021,01/01/2021,12/11/2020 COVID-19, MRNA-LNP, 23-24, P F, 30 MCG/0.3 mL, 12 YRS AND ABOVE, IM ([employer]) 03/14/2024,08/08/2023 COVID-19, MRNA-LNP, 24-25, P R, 30MCG/0.3ML, IM, 12YRS AND ABOVE ([employer]) 06/27/2024 Covid-19 Ad26, Single Dose (Viralheat/J&Echolocation) 01/01/2021,12/11/2020 Covid-19, Mrna, Lnp-s, Pf, B ivalent, 30 Mcg, IM, 12 yrs and above ([employer]) 07/06/2022 Pneumococcal Conjugate Vacc, 13 Valent (Prevnar) [...] No 06/20/2024 Does the household have a rustlar source of income? (Household - for ages [...] encounter Miscellaneous Notes * Telephone Encounter - Jane Wright LPN - 07/02/2024 11:21 AM EDT Images from the original note were not included. [facility] Remote Patient Monitoring Able to contact patient: Trigger type: Abnormal reading(s): AMC (Advanced Monitored Caregiving): Scale: Baseline weight: 103-108lb lbs Trigger weight: 110.6 lbs; weight increased 5.2 lbs in 5 day(s) Trigger priority per AMC: moderate Patient takes diuretic medication: Yes, reviewed current diuretic use: Name of medication: Torsemide Dose: 40mg Frequency: daily Symptom review: none Diet Reviewed: Yes. Patient has had any foods high in sodium: No Fluid Intake Reviewed: Yes. Patient is on a fluid restriction: Yes, restriction amount in milliliters or liters: 64 oz Adherent to restriction: Yes Self-Management Plan Reviewed: Red Flags: edema SOB fall with injury DTP (Diuretic Titration Protocol): Describe DTP: Name of medication(s): metolazone as directed see DTP notes also Dose: 2.5mg Frequency: as directed Used in past 2 weeks: No Risk assignment recommendation: Moderate risk findings (check as applicable): [x] Moderate trigger priority on AMC [] Confirmed tympanic equivalent temperature 100.4-101.9 F onehour post administration of antipyretic [] Weight gain of 2.1-4.9 lbs over 1-2 days [] Confirmed new sustained resting HR greater than 105 WITHOUT symptoms [x] Weight gain of greater than or equal to 5 lbs in 5 days WITHOUT heart failure symptoms [] Confirmed new sustained resting HRT less than 60 WITHOUT symptoms [] Moderate heart failure symptoms [] Confirmed SBP less than 90 WITHOUT symptoms [] Moderate COPD symptoms [] Confirmed SBP greater than 170 WITHOUT symptoms [] Confirmed new SpO2 90-93% [] Confirmed DBP greater than 90 WITHOUT symptoms High risk findings (check as applicable): [] High trigger priority on AMC [] Confirmed tympanic equivalent temperature greater than or equal to 102 F on hour post administration of antipyretic [] Weight gain of greater than or equal to 5 lbs over 1-2 days [] Confirmed tympanic equivalent temperature less than 96 F [] Weight gain of greater than or equal to 5 lbs in 5 days WITH heart failure symptoms [] Confirmednew sustained resting HR greater than 105 WITH symptoms [] Severe heart failure symptoms [] Confirmed new sustained resting HR less than 60 WITH symptoms [] Severe COPD symptoms [] Confirmed SBP less than 90 WITH symptoms [] Confirmed new SpO2 less than 90% [] Confirmed SBP greater than 170 WITH symptoms [] Confirmed DBP greater than 90 WITH symptoms Additional risk selection justification: Spoke to patient she denies any issues of SOB, edema chestpain last BM this am Educated on 2gm sodium 64 oz fluid restriction routing for recommendations Has appt later this week on 07/06 with RNCM Overall risk and identified plan: Moderate risk: Route to RNCM (Registered Nurse Campaign Assistant) and Advance Practitioner Route to RMC (Remote Medical Coordinator) documented in this encounter Plan of Treatment Upcoming Encounters Date Type Department Care Team (Late st Contact Info) Description 07/06/2024 4:00 PM EDT Home Visit [facility], [facility] [address] [facility] [place] [address] Bonny Ferrara RN 132 [facility] [place] [address] 07/11/2024 10:00 AM EDT Office Visit Family Practice [address] [place] [address] [address] [place] [address] Olya Kimble DO [address] [place] [address] 07/24/2024 12:00 PM EDT Home Visit [facility] at Home [address] [place] [address] Kristi Raza PA-C [address] [place] [address] 11/30/2024 11:30 AM EST Office Visit Cardiology, [facility] 132 [facility] [place] [address] Tejas Haskins, DO [address] [facility] [place] [address] 01/03/2025 1:00 PM EDT Office Visit General Surgery, [facility] [address] [facility] [place] [address] Terry Link MD [address] [place], [place] [id number] Scheduled Procedures Name Priority Associated Diagnoses Date/Ti [...] 03/28/2023, Additional history exists TSH 03/29/2025 03/29/2024, 050 12/2023, 02/03/2024, Additional history exists O2 ASSESSMENT [...] D LEVEL ONCE IN A LIFETIME-USE SMARTSET# 12639 Completed 02/03/2024, 11/15/2023, 06/13/2023, Additional history exists [...] this encounter Medical Devices Implanted Type Area Paper Roller Device Identifier Shelf Expiration Date Model / Serial / Lot Shannonsh Square 30cm X 30cm - [id number] Implanted:Qty: 1 on 06/09/2016 by Dustin Smith MD at OR [facility] N/A: Abdomen [employer] 03/16/2021 [id number] / / [id number] documented as of this encounter Advance Directives [...] Agents on File Name Relationship Healthcare Agent [facility] p Communication Praful Higgins Spouse Health Care Agent Care Teams Fluid Pump Operator Relationship Specialty Start Date End Date Olya Kimble DO [address] [place] [address] PCP - General Family Medicine 03/29/24 documented as of this encounter
--- OUTSIDE RECORDS SUMMARY | 2024-07-10 03:38 | External Medical Summary | Summary of Care ---
Author Name Unknown Organization [facility] Address [address] [place] [address] Phone [phone] Care Team Providers Care Seafood Fisherman Name Role Phone Olya Kimble DO Primary Care Provider [phone] Reason for Visit * Reason Onset Date Comments Advice 06/27/202407/04 Order Request 06/27/202406/29; 07/05 Encounter Details Date Type Department Care Team (Late st Contact Info) Description 06/27/2024 Telephone Family Practice [address] [place] [address] [place] [phone] Olya Kimble [address] [place] [address] Advice (07/04); Order Request (06/29; 07/05) Allergies [...] 2.5 MG Oral Tablet (Coumadin)Indication s:Anticoagulation management encounter,[facility] current use of anticoagulant therapy,Permanent atrial fibrillation [...] diversion with duodenal switch 1000 mcg IM [id number] 02/01/2023 Acti ve documented as of this encounter (statuses as of 07/05/2024) Active Problems Problem Noted Date Diagnosed Date Food insecurity 06/25/2024 Overview: Per [facility] Protocol Major depressive disorder, recurrent episode, [...] in the Comments) Remote Patient [place] [facility] [place](s): Connected Scale Traditional Pulse Ox Self [...] OPEN INCISION; Date; 04/06/04 Original Weight; 275 [facility]; [facility] [place]; Dustin Smith MD REVISION; OPEN INCISIONRevision of gastrojejunostomy for gastrogastric fistula, distalization of marquita limb with 150 cm common channel Date; 09/25/15 [facility]; [facility] [place]; Dustin Smith MD Repair recurrentincisional or [...] mRNA, LNP-s, No Pre serve, 2-Dose Series ([employer]) 08/19/2021,01/01/2021,12/11/2020 COVID-19, MRNA-LNP, 23-24, P F, 30 MCG/0.3 mL, 12 YRS AND ABOVE, IM (SmartPill) 03/14/2024,08/08/2023 COVID-19, MRNA-LNP, 24-25, P R, 30MCG/0.3ML, IM, 12YRS AND ABOVE ([employer]) 06/27/2024 Covid-19 Ad26, Single Dose ([email or web address]/Vizify&Vizify) 01/01/2021,12/11/2020 Covid-19, Mrna, Lnp-s, Pf, B ivalent, 30 Mcg, IM, 12 yrs and above ([employer]) 07/06/2022 Pneumococcal Conjugate Vacc, 13 Valent (Prevnar) [...] Notified her that form was faxed to [facility] with fax confirmation received. Also provided her the phone number to call to arrange payment plan - [phone]. Pt did repeat correct phone number back to me. No further questions at this time. Will keep encounter open to f/u on abd binder order sent through [employer]. * Telephone Encounter - Nettie Seymour OSA - 07/05/2024 10:59 AM EDT Returned call * Telephone Encounter - Emmy Esposito LPN - 07/04/2024 4:09 PM EDT [employer] form faxed with fax confirmation received. Call placed to patient - no answer. Message left for her to return call. Need to inform pt that shewill need to contact [facility] at [phone] to set up a payment plan. * Telephone Encounter - Emmy Esposito LPN - 06/29/2024 11:11 AM EDT Form received from [employer]. On Dr. Kimble's desk. Request for abdominal binder submitted through [employer]. * Telephone Encounter - Olya Kimble DO - 06/27/2024 2:29 PM EDT Please do the following: Call [employer] for form for us to complete to help get her electricity covered and keep it from being shut off. Put order for abdominal binder through [employer]. Let me know if this is not covered. documented in this encounter Plan of Treatment Upcoming Encounters Date Type Department Care Team (Late st Contact Info) Description 07/06/2024 4:00 PM EDT Home Visit [facility] [place] [place], [address] [place] [address] Bonny Ferrara, RN 132 [facility] [place], [place] [address] 07/09/2024 2:20 PM EDT Anticoagulation Family Practice 65 [facility] [address] [place] [phone] College, Pharmacist [address] [place] [address] 07/09/2024 3:00 PM EDT Office Visit Family Practice [address] [place] [address] [address] [place] [phone] Olya Kimble, DO 293 [place] [address] 07/11/2024 10:00 AM EDT Office Visit Family Practice [address] [place] [address] [address] [place] [phone] Olya Kimble, DO 293 [place] [address] 07/24/2024 12:00 PM EDT Home Visit Care at Home [address] [place] [address] Kristi Raza PA-C [address] [place] [address] 11/30/2024 11:30 AM EST Office Visit Cardiology, [facility] [address] [place] [address] Tejas Haskins, DO [address] [place] [address] 01/03/2025 1:00 PM EDT Office Visit General Surgery, [facility] [address] [place] [address] Terry Link MD [address] [place] [address] Scheduled Procedures Name Priority Associated Diagnoses Date/Ti [...] D LEVEL ONCE IN A LIFETIME-USE SMARTSET# 32910 Completed 02/03/2024, 11/15/2023, 06/13/2023, Additional history exists [...] this encounter Medical Devices Implanted Type Area Agriscience Technology Instructor Device Identifier Shelf Expiration Date Model / Serial / Lot Shannon Square 30cm X 30cm - [id number] Implanted:Qty: 1 on 06/09/2016 by Dustin Smith [place] [facility]A: Abdomen [employer] 03/16/2021 [id number] / / [id number] documented as of this encounter Advance Directives [...] Agents on File Name Relationship [facility] Praful Higgins Spouse Health Care Agent Care Teams Seafood Fisherman Relationship Specialty Start Date End Date Olya Kimble DO [address] [place] [address] PCP - General Family Medicine 03/29/24 documented as of this encounter
--- OUTSIDE RECORDS SUMMARY | 2024-07-10 03:38 | External Medical Summary | Summary of Care ---
Author Name Unknown Organization [facility] Address [address] [place] [address] Phone [phone] Care Team Providers Care Seismic Prospecting Observer Helper Name Role Phone XenaOlya richardson Talha WELLS Primary Care Provider [phone] Reason for Visit * Reason Onset Date Comments [facility]: Maintenance 07/02/2024 Encounter Details Date Type Department Care Team (Late st Contact Info) Description 07/02/2024 Telephone [facility], [place] [address] [place] [address] Jane Wright, WOOD MILLING MACHINE OPERATOR [address] [place] [address] [facility]: Maintenance Allergies [...] continuous J tube feeds, via feeding pump. 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,Permanent atrial fibrillation [...] diversion with duodenal switch 1000 mcg IM [id number] 02/01/2023 Acti ve documented as of this [...] in the Comments) Remote Patient Monitoring Vendor: [facility] [place] Device(s): Connected Scale Traditional Pulse Ox Self [...] INCISION; Date; 04/06/04 Original Weight; 275 [facility]; [facility] Surgeon; Dustin Smith MD REVISION; OPEN INCISIONRevision of gastrojejunostomy for gastrogastric fistula, distalization of marquita limb with 150 cm common channel Date; 09/25/15 [facility]; [facility] Surgeon; Dustin Smith MD Repair recurrentincisional or [...] mRNA, LNP-s, No Pre serve, 2-Dose Series ([employer]ecMed) 08/19/2021,01/01/2021,12/11/2020 COVID-19, MRNA-LNP, 23-24, P F, 30 MCG/0.3 mL, 12 YRS AND ABOVE, IM (Xter[employer]-Flubit LimitedirnatTwitter) 03/14/2024,08/08/2023 COVID-19, MRNA-LNP, 24-25, P R, 30MCG/0.3ML, IM, 12YRS AND ABOVE (TecMed-Flubit LimitedirnatTwitter) 06/27/2024 Covid-19 Ad26, Single Dose ([employer] Standard [employer]/J&Tempolib) 01/01/2021,12/11/2020 Covid-19, Mrna, Lnp-s, Pf, B ivalent, 30 Mcg, IM, 12 yrs and above (TecMed) 07/06/2022 Pneumococcal Conjugate Vacc, 13 Valent (Prevnar) [...] 06/20/2024 Does the household have a re lar source of income? (Household - for ages [...] encounter Miscellaneous Notes * Telephone Encounter - Jason Jacobs MD - 07/02/2024 12:19 PM EDT Noted. E * Telephone Encounter - Jane Wright LPN [...] Moderate risk: Route to RNCM (Registered Nurse Cottrell Blower) and Advance Practitioner Route to RMC (Remote Medical Coordinator) documented in this encounter Plan of Treatment Upcoming Encounters Date Type Department Care Team (Late st Contact Info) Description 07/06/2024 4:00 PM EDT Home Visit [facility] [place], [facility] [address] [place] [address] Bonny Ferrara RN 132 [facility] [place] [address] 07/11/2024 10:00 AM EDT Office Visit Family Practice [address] [place] [address] [address] [place] [address] Olya Kimble DO [address] [place] [address] 07/24/2024 12:00 PM EDT Home Visit Care at Home [address] [place] [address] Kristi Raza PA-C [address] [place] [address] 11/30/2024 11:30 AM EST Office Visit Cardiology, [facility] [address] [place] [address] Tejas Haskins, DO 132 [facility] [place] [address] 01/03/2025 1:00 PM EDT Office Visit General Surgery, [facility] [address] [facility] [place] [address] Terry Link MD [address] [place] [address] Scheduled Procedures Name Priority Associated [...] 03/28/2023, Additional history exists TSH 03/29/2025 03/29/2024, 12/2023, 02/03/2024, Additional history exists O2 ASSESSMENT [...] D LEVEL ONCE IN A LIFETIME-USE SMARTSET# 53108 Completed 02/03/2024, 11/15/2023, 06/13/2023, Additional history exists [...] this encounter Medical Devices Implanted Type Area Chief Analytics Officer Device Identifier Shelf Expiration Date Model / Serial / Lot Vitame Square 30cm X 30cm - [id number] Implanted:Qty: 1 on 06/09/2016 by Dustin Smith MD at [place] [facility] N/A: Abdomen [employer] 03/16/2021 [id number] / / [id number] documented as of this encounter Advance Directives [...] Agents on File Name Relationship Healthcare Agent [facility] Communication Praful Higgins Spouse Health Care Agent Care Teams Seismic Prospecting Observer Helper Relationship Specialty Start Date End Date Olya Kimble DO 293 [place] [address] PCP - General Family Medicine 03/29/24 documented as of this encounter
--- OUTSIDE RECORDS SUMMARY | 2024-07-10 03:38 | External Medical Summary | Summary of Care ---
Author Name Unknown Organization [facility] Address [address] [place] [address] Phone [phone] Care Team Providers Care General Labor Forklift Operator Name Role Phone Olya Kimble DO Primary Care Provider [phone] Reason for Visit * Reason Onset Date Comments Advice 06/27/202407/04 Order Request 06/27/202406/29; 07/05 Encounter Details Date Type Department Care Team (Late st Contact Info) Description 06/27/2024 Telephone Family Practice [address] [place] [address] [place] [phone] Olya Kimble [address] [place] [address] Advice (07/04); Order Request (06/29; 07/05) Allergies [...] 2.5 MG Oral Tablet (Coumadin)Indication s:Anticoagulation management 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,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,Permanent atrial fibrillation [...] diversion with duodenal switch 1000 mcg IM [id number] 02/01/2023 Acti ve documented as of this encounter (statuses as of 07/05/2024) Active Problems Problem Noted Date Diagnosed Date Food insecurity 06/25/2024 Overview: Per [facility] Protocol Major depressive disorder, recurrent episode, [...] in the Comments) Remote Patient Monitoring Vendor: [facility] Device(s): Connected Scale Traditional Pulse Ox Self [...] OPEN INCISION; Date; 04/06/04 Original Weight; 275 [facility]; [facility]; Dustin Smith MD REVISION; OPEN INCISIONRevision of gastrojejunostomy for gastrogastric fistula, distalization of marquita limb with 150 cm common channel Date; 09/25/15 [facility]; [facility] [place]; Dustin Smith MD Repair recurrentincisional or [...] mRNA, LNP-s, No Pre serve, 2-Dose Series ([employer]Me) 08/19/2021,01/01/2021,12/11/2020 COVID-19, MRNA-LNP, 23-24, P F, 30 MCG/0.3 mL, 12 YRS AND ABOVE, IM (SCVNGR) 03/14/2024,08/08/2023 COVID-19, MRNA-LNP, 24-25, P R, 30MCG/0.3ML, IM, 12YRS AND ABOVE (testhub) 06/27/2024 Covid-19 Ad26, Single Dose ([employer]/MST&MST) 01/01/2021,12/11/2020 Covid-19, Mrna, Lnp-s, Pf, B ivalent, 30 Mcg, IM, 12 yrs and above (FireDrillMe) 07/06/2022 Pneumococcal Conjugate Vacc, 13 Valent (Prevnar) [...] to call to arrange payment plan - [phone]. Pt did repeat correct phone number back to me. No further questions at this time. Will keep encounter open to f/u on abd binder order sent through [employer]. * Telephone Encounter - Nettie Seymour OSA - 07/05/2024 10:59 AM EDT Returned call * Telephone Encounter - Emmy Esposito LPN - 07/04/2024 4:09 PM EDT [employer] form faxed with fax confirmation received. Call placed to patient - no answer. Message left for her to return call. Need to inform pt that shewill need to contact [facility] [employer] at [phone] to set up a payment plan. * Telephone Encounter - Emmy Esposito LPN - 06/29/2024 11:11 AM EDT Form received from [employer]. On Dr. Kimble's desk. Request for abdominal binder submitted through [employer]. * Telephone Encounter - Olya Kimble DO - 06/27/2024 2:29 PM EDT Please do the following: Call [employer] for form for us to complete to help get her electricity covered and keep it from being shut off. Put order for abdominal binder through [employer]. Let me know if this is not covered. documented in this encounter Plan of Treatment Upcoming Encounters Date Type Department Care Team (Late st Contact Info) Description 07/06/2024 4:00 PM EDT Home Visit [facility] [place], [address] [place] [address] Bonny Ferrara, RN 132 [facility] [place], [place] [address] 07/09/2024 2:20 PM EDT Anticoagulation Family Practice 65 [facility] 293 [facility] [place] [phone] College, Pharmacist [address] [place] [address] 07/09/2024 3:00 PM EDT Office Visit Family Practice [address] [place] [address] 293 [facility] [place] [phone] Olya Kimble, DO 293 [place] [address] 07/11/2024 10:00 AM EDT Office Visit Family Practice [address] [place] [address] 293 [facility] [place] [phone] Olya Kimble, DO 293 [place] [address] 07/24/2024 12:00 PM EDT Home Visit Care at Home [address] [place] [address] Kristi Raza PA-C [address] [place] [address] 11/30/2024 11:30 AM EST Office Visit Cardiology, [facility] 132 [facility] [place] [address] Tejas Haskins, DO [address] [place] [address] 01/03/2025 1:00 PM EDT Office Visit General Surgery, [facility] 132 [facility] [place] [address] Terry Link MD [address] [place] [address] Scheduled Procedures Name Priority Associated Diagnoses Date/Ti [...] D LEVEL ONCE IN A LIFETIME-USE SMARTSET# 13671 Completed 02/03/2024, 11/15/2023, 06/13/2023, Additional history exists [...] this encounter Medical Devices Implanted Type Area Strand Buncher Fine Wire Device Identifier Shelf Expiration Date Model / Serial / Lot Shannon Square 30cm X 30cm - [id number] Implanted:Qty: 1 on 06/09/2016 [place] Dust[place] Smith [place] [facility] [place]A: Abdomen [employer] 03/16/2021 [id number] / / [id number] documented as of this encounter Advance Directives [...] Agents on File Name Relationship Healthcare [facility] Communication Praful Higgins Spouse Health Care Agent Care Teams General Labor Forklift Operator Relationship Specialty Start Date End Date Olya Kimble DO [address] [place] [address] PCP - General Family Medicine 03/29/24 documented as of this encounter
--- OUTSIDE RECORDS SUMMARY | 2024-07-10 03:39 | External Medical Summary ---
Author Name Unknown Address Unknown Organization K01:[facility] [facility] [place] [address] [place] [address] Laboratory Report Ordering Provider Test Date Status JANE BUSTAMANTE 06/25/2024 08:36:00 Final Observation Date Value Abnormality Reference (Units ) Status Parathyrin.intact [Mass/volume] in Serum or Plasma 06/25/2024 08:36:00 68 Above high normal 15-65 (pg/mL) Final Performing Location [facility] [place] [address] [place] [address]
--- OUTSIDE RECORDS SUMMARY | 2024-07-10 03:39 | External Medical Summary ---
Author Name Unknown Address Unknown Organization K01:[facility] [place] [address] [facility] [place]. [facility] [address] Laboratory Report Ordering Provider Test Date Status JANE BUSTAMANTE 06/25/2024 08:36:00 Final Observation Date Value Abnormality Reference (Units ) Status Calcium.ionized [Moles/volume] in Serum or Plasma by Ion-selective membrane electrode (ISE) 06/25/2024 08:36:00 1.20 1.13-1.32 (mmol/L) Final This test was developed and its performance characteristics dtermined by [employer]. It has not been cleared or approved by the [place] Food and Drug Administration Performing Location LABORATORY [place] [address] [facility] [address]
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
--- OUTSIDE RECORDS SUMMARY | 2024-07-10 03:39 | External Medical Summary | Summary of Care ---
Author Name Unknown Organization [facility] Address [address] [place] [address] Phone [phone] Care Team Providers Care Chemical Production Engineer Name Role Phone Xenadebra Olya Palencia DO Primary Care Provider [phone] Reason for Visit * Reason Comments [facility]: Maintenance Encounter Details Date Type Department Care Team (Late st Contact Info) Description 05/31/2024 2:30 PM EDT [facility] Visit [facility], [facility] [address] [facility] [place] [address] Bonny Ferrara, RN [address] [facility] [place] [address] Allergies Active Allergy Reactions Criticality Noted Date [...] continuous J tube feeds, via feeding pump. 89362 mL 11 07/12/2023 Active Trolamine Salicylate 10 [...] 2.5 MG Oral Tablet (Coumadin)Indication s:Anticoagulation management encounter,nursing home current use of anticoagulant therapy,Permanent atrial fibrillation [...] the evening. 200 Tablet 3 05/18/2024 Active Hospital, Clinic, or Other Facility Administered Medication Ordered Dose Route Frequency Start Date End Date Status vitamin b-12 (Cyanocobalamin) inj 1,000 mcgIndications:S/P biliopancreatic diversion with duodenal switch 1000 mcg IM [id number] 02/01/2023 Acti ve documented as of this [...] in the Comments) Remote Patient Monitoring Vendor: [facility] Device(s): Connected Scale Traditional Pulse Ox [...] INCISION; Date; 04/06/04 Original Weight; 275 Hospital; [facility] Surgeon; Dustin Smith MD REVISION; OPEN INCISIONRevision of gastrojejunostomy for gastrogastric fistula, distalization of marquita limb with 150 cm common channel Date; 09/25/15 [facility]; [facility] Surgeon; Dustin Smith MD Repair recurrentincisional or [...] mRNA, LNP-s, No Pre serve, 2-Dose Series (IORevolution) 08/19/2021,01/01/2021,12/11/2020 COVID-19, MRNA-LNP, 23-24, P F, 30 MCG/0.3 mL, 12 YRS AND ABOVE, IM (TrackTik-ComirnatQwite) 03/14/2024,08/08/2023 Covid-19 Ad26, Single Dose (Compositence/BioMedFlex&BioMedFlex) 01/01/2021,12/11/2020 Covid-19, Mrna, Lnp-s, Pf, B ivalent, 30 Mcg, IM, 12 yrs and above (IORevolution) 07/06/2022 Pneumococcal Conjugate Vacc, 13 Valent (Prevnar) [...] Sign Reading Time Taken Comments Blood Pressure 110/68 05/31/2024 11:52 AM EDT Pulse 88 05/31/2024 11:52 AM EDT Temperature - - Respiratory Rate 18 05/31/2024 11:52 AM EDT Oxygen Saturation 95% 05/31/2024 11:52 AM EDT Inhaled Oxygen Concentration - - Weight 48.5 kg (107 lb) 05/31/2024 11:52 AM EDT Height - - Body Mass Index 22.36 05/11/2024 9:55 AM EDT documented in this encounter Functional Status Functional [...] as of this encounter Progress Notes * Bonny Ferrara RN - 05/31/2024 11:52 AM EDT Images from the original note were not included. [facility] Sustainability Project Manager Visit Date: 05/31/2024 Time: 11:53 AM Name: Andra Higgins : 1950 Current Concerns: Pt seen for return RNCM visit Discussed living situation Pt and disabled and have to walk a hill to get to their car Also pt takes the garbage cans down the road which is also down a hill - cannot do it and there is no one else around - it is unsafe They have discussed moving to a more handicap accessible arrangement in the past but states they have no one to help them move, states son is "too busy" Will reach out to CHW and SW to see how to proceed Pt denies any acute concerns at this time. Vitals are stable She does continue to have a tremor and states some days are worse than others Denies increased SOB No increased LE edema or abd bloating Confirms she is getting tube feeding each night Physical Exam: BP 110/68 | Pulse 88 | Resp 18 | Wt 48.5 kg (107 lb) | LMP 10/03/2006 | SpO2 95% | BMI 22.36 kg/m| BSA 1.41 m Pain 0 Problems/Symptoms: Medication Reconciliation: (See medication list) Does patient take medications as ordered: Yes Patient Well Being: PHQ2/9: No questionnaires available. No change in living situation [facility]-10 Completed this Visit: No. Routine visit and No falls since last visit Advanced Care Planning: POLST. Reinforcement/Education: COPD: Pt instructed to: -Call with increased SOB, wheezing, chest tightness, increased cough, increased sputum with change in color or consistency and fever. -Wash hands often -Drink plenty of fluids -Use inhalers as directed, do not stop or skip doses -Avoid stress -Rest when tired or SOB -Avoid triggers -Clean inhalers once a week Reviewed HF symptom monitoring: -Weigh self daily in am, post-void and record -Do not add salt to food, avoid foods high in sodium -Limit fluids to 2 liters per day -Report the following: ->2 lb weight gain in one day or 5 lbs in a week to PCP -increased edema in feet, abdomen or hands -increased SOB and cough, especially if at night -increased fatigue or vertigo Educated on home safety: Create a fall proof home Clear floors of clutter, loose wires, throw rugs, and cords. Make sure halls, stairways, and entrances are well lit. Install a nightlight in your bedroom, hallway and bathroom. Install grab bars or handrails in the bathroom and on stairs. Use a non-skid tub/shower mat. Avoid climbing on a chair; instead use a step stool with a high handrail. Keep sidewalks and steps in good repair Keep steps and sidewalks free of snow and ice. Using aids to support and prevent falls If you have poor balance or have fallen in the past, consider additional support such as a cane or walker. Use a cane with good support and that is the proper length for you. Use a walker if a cane doesnt provide enough support. Avoid medications that increase the risk of falling by causing dizziness, change in sensation or slowed reflexes. Certain medicines may cause falls - blood pressure pills, heart medicines, water pills, or sleepingpills. Be sure to understand each medicine that you are taking and any side effects that may occur. Improve your balance and flexibility with muscle strengthening exercises. Ask your health care provider for some exercises that will be right for you. Treatment/Plan: Continue meds as prescribed [facility] scale for daily wts Tube feeding as ordered DTP on file for prn use per cardiology Low na diet with 60 oz fluid restriction Elevate LE as much as possible Compression stocking on in am, off in pm Use neb every 4 hrs while awake as needed Home Interventions Provided: Home Intervention: Other; eval Reinforced current Plan of Care, including self-management and medication regimen Patient's 'Red Flags': Increased SOB Increased edema Worsening weakness or fatigue Patient Needs to Remember: Call [facility] at with any new or worsening health concerns or problems, red flag symptoms. Referrals Needed: Other none Follow Up: Is there cellular connectivity/connectivity in the home? Yes Does the patient have internet in the home? Yes Patient encouraged to call the intake phone number for all urgent but not emergent issues. Is the patient new to [facility] within the last 30 days? No, Assess appropriateness for upcoming telehealth visits. Cancel telehealth visits & schedule home visit with care grocery team member(s)as indicated. Provider is in agreement with Plan of Care: Yes Scheduled to follow up with patient in one month, sooner if needed. Bonny Ferrara RN 05/31/2024 11:53 AM documented in this encounter Plan of Treatment Upcoming Encounters Date Type Department Care Team (Late st Contact Info) Description 07/06/2024 4:00 PM EDT [facility] Visit [facility], [facility] 132 [facility] [place] [address] Bonny Ferrara, RN 132 [facility] [place] [address] 07/11/2024 10:00 AM EDT Office Visit Family Practice [address] [place] [address] 293 [place] [address] Olya Kimble DO [address] [facility] [place] [address] 07/24/2024 12:00 PM EDT Home Visit Care at Home [address] [place] [address] Kristi Raza PA-C [address] [place] [address] 11/30/2024 11:30 AM EST Office Visit Cardiology, [facility] 132 [place] [address] Tejas Haskins, DO [facility] [place] [address] 01/03/2025 1:00 PM EDT Office Visit General Surgery, [facility] 132 [place] [address] Terry Link MD [address], [place] [id number] Scheduled Procedures Name Priority Associated Diagnoses Date/Ti me COLONOSCOPY FLEXIBLE PROXIMAL DIAGNOSTIC Recall History of colon polyps Health Maintenance Due Date Last Done Comments Alpha-1 Antitrypsin 1970 Cologuard 1997 Fecal Occult Blood Test 1997 Sigmoidoscopy 1997 Adult Wellness Visit 12/22/2023 12/21/2022 O2 ASSESSMENT COMPLETED IN PAST YEAR FOR [...] D LEVEL ONCE IN A LIFETIME-USE SMARTSET# [id number] Completed 02/03/2024, 11/15/2023, 06/13/2023, Additional history exists [...] this encounter Medical Devices Implanted Type Area Oracle Bpm Consultant Device Identifier Shelf Expiration Date Model / Serial / Lot Silas Square 30cm X 30cm - [id number] Implanted:Qty: 1 on 06/09/2016 by Dustin Smith MD at [place] [facility] N/A: Abdomen [employer] 03/16/2021 [id number] / / [id number] documented as of this encounter Advance Directives [...] Agents on File Name Relationship Healthcare Agent [facility] Communication Praful Higgins Spouse Health Care Agent Care Teams Chemical Production Engineer Relationship Specialty Start Date End Date Olya Kimble DO [address] [place] [address] PCP - General Family Medicine 03/29/24 documented as of this encounter
--- OUTSIDE RECORDS SUMMARY | 2024-07-10 03:39 | External Medical Summary ---
Author Name Unknown Address Unknown Organization [facility] [address] [place] [address] Laboratory Report Ordering Provider Test Date Status JANE BUSTAMANTE 06/25/2024 08:36:00 Final Observation Date Value Abnormality Reference (Units ) Status WBC, Total 06/25/2024 08:36:00 9.40 4.00-10.8 0 (K/uL) Final RBC 06/25/2024 08:36:00 3.79 3.85-5.15 (M/uL) Final Hemoglobin 06/25/2024 08:36:00 11.8 Below low normal 12 .0-15.3 (g/dL) Final HCT 06/25/2024 08:36:00 36.6 36.0-45.2 (%) Final MCV 06/25/2024 08:36:00 96.6 81.5-97.5 (fL) Final MCH 06/25/2024 08:36:00 31.1 27.0-34.0 (pg) Final MCHC 06/25/2024 08:36:00 32.2 32.0-36.0 (g/dL) Final RDW 06/25/2024 08:36:00 15.2 11.5-15.5 (%) Final Platelets 06/25/2024 08:36:00 361 140-400 (K /uL) Final MPV 06/25/2024 08:36:00 10.0 6.6-11.1 ( fL) Final Performing Location [facility] [address] - [address] [place] [address]
--- OUTSIDE RECORDS SUMMARY | 2024-07-10 03:39 | External Medical Summary ---
Author Name Unknown Address Unknown Organization [facility] - [address] [place] [address] Laboratory Report Ordering Provider Test Date Status JANE BUSTAMANTE 06/25/2024 08:36:00 Final Observation Date Value Abnormality Reference (Units ) Status Albumin 06/25/2024 08:36:00 3.9 3.8-5.0 (g /dL) Final Performing Location [facility] [address] - [address] [place] [address]
--- OUTSIDE RECORDS SUMMARY | 2024-07-10 03:39 | External Medical Summary | Summary of Care ---
Author Name Unknown Organization [facility] Address [address] [place] [address] Phone [phone] Care Team Providers Care Station Supervisor Name Role Phone Olya Kimble DO Primary Care Provider Reason for Visit * Reason Onset Date Comments Follow Up Medication Administration 06/27/2024 Flu an d/or Pneumo Inj Encounter Details Date Type Department Care Team (Latest Contact Info) Description 06/27/2024 10:00 AM EDT Office Visit Family Practice [address] [place] [address] [place] [address] Olya Kimble [address] [place] [address] Jejunostomy tube present (HCC)*; COPD, group B, by GOLD 2017 classification (HCC); Chronic diastolic heart failure (HCC); Financial difficulties; Housing problems; Food insecurity; Need for prophylactic vaccination and inoculation against influenza; Need for COVID-19 vaccine Allergies Active Allergy Reactions Criticality Noted Date Comments Denosumab High 02/22/2023 SEVERE HYPOCALCEMIA documented as of this encounter (statuses as of 06/27/2024) Medications Medication Sig Dispensed Refills Start Date [...] in the event of anaphylactic reaction per [facility] IV iron anaphylaxis protocol). 2 mL 11 [...] continuous J tube feeds, via feeding pump. 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,Permanent atrial fibrillation [...] diversion with duodenal switch 1000 mcg IM [id number] 02/01/2023 Acti ve documented as of this encounter (statuses as of 06/27/2024) Active Problems Problem Noted Date Diagnosed Date [...] in the Comments) Remote Patient Monitoring V[place] [facility] [place](s): Connected Scale Traditional Pulse Ox Self [...] OPEN INCISION; Date; 04/06/04 Original Weight; 275 [facility]; [facility] [place]; Dustin Smith MD REVISION; OPEN INCISIONRevision of gastrojejunostomy for gastrogastric fistula, distalization of marquita limb with 150 cm common channel Date; 09/25/15 [facility]; [facility] Surgeon; Dustin Smith MD Repair recurrentincisional or ventral hernia, age 5 years or over; reducible06/09/16 Implantation of mesh or other prosthesis for incisional or ventral hernia repair. documented as of this encounter (statuses as of 06/27/2024) Resolved Problems Problem Noted Date Diagnosed Date [...] as of this encounter (statuses as of 06/27/2024) Immunizations Name Administration Dates Next Due COVID-19 mRNA, LNP-s, No Pre serve, 2-Dose Series (S*Bio) 08/19/2021,01/01/2021,12/11/2020 COVID-19, MRNA-LNP, 23-24, P F, 30 MCG/0.3 mL, 12 YRS AND ABOVE, IM ([employer]) 03/14/2024,08/08/2023 COVID-19, MRNA-LNP, 24-25, P R, 30MCG/0.3ML, IM, 12YRS AND ABOVE ([employer]k) 06/27/2024 Covid-19 Ad26, Single Dose ([employer]/J&Tuizzi) 01/01/2021,12/11/2020 Covid-19, Mrna, Lnp-s, Pf, B ivalent, 30 Mcg, IM, 12 yrs and above (S*Bio) 07/06/2022 Pneumococcal Conjugate Vacc, 13 Valent (Prevnar) [...] Passive Smoke Exposure: Current Smokeless Tobacco: Never Tobacco Cessation:Counseling Given: Yes Comments:second hand smoke Alcohol Use Standard Drinks/Week [...] Sign Reading Time Taken Comments Blood Pressure 112/64 06/27/2024 9:50 AM EDT Pulse 72 06/27/2024 9:50 AM EDT Temperature 36.1 C (97 F) 06/27/2024 9:50 AM EDT Respiratory Rate 16 06/27/2024 9:50 AM EDT Oxygen Saturation 98% 06/27/2024 9:50 AM EDT Inhaled Oxygen Concentration - - Weight 49.3 kg (108 lb 9.6 oz) 06/27/2024 9:50 A M EDT Height 147.3 cm (4' 10") 06/27/2024 9:50 AM EDT Body Mass Index 22.7 06/27/2024 9:50 AM EDT documented in this encounter Functional [...] (15 years old or older) No 07/01/20 23 Cognitive Status Response Date of Assessm ent Because of a physical, menta l, or emotional condition, do you have serious difficulty concentrating, remembering, or making decisions? (5 years old or older) No 07/01/2023 documented as of this encounter Patient Instructions * Patient Instructions* Emmy Esposito LPN - 06/27/2024 9:48 AM EDT ~~PATIENT INSTRUCTIONS FOR FLU SHOT~~ Possible side effects of influenza vaccine, (flu shot), are usually mild and include: 1. Soreness or redness at injection site 2. Low grade fever 3. Body aches You may use Tylenol/Acetaminophen as needed for these symptoms. LET YOUR DOCTOR KNOW IMMEDIATELY IF YOU HAVE DIFFICULTY BREATHING OR SWALLOWING, EXPERIENCE ITCHINGOF FEET OR HANDS, HAVE SWELLING OF EYES, FACE OR INSIDE OF NOSE. documented in this encounter Progress Notes * Olya Kimble DO - 06/27/2024 10:15 AM EDT SUBJECTIVE: Chief Complaint Patient presents with Follow Up Medication Administration Flu and/or Pneumo Inj HPI: Andra Higgins is a 73 year old female who presents today for regular return. Pt notes that she is feeling much better than last time. She notes that she has been working to get her electric bill covered. She states we may need paperwork but she is not sure. She states she is using transportation now. She states that the [facility] did not really provide any additional services to her. She isgetting food. Her bank account was hacked so the bank did shut everything down for a week. She notes she did not lose any money but had to wait for all new cards and checks. PHM: Patient Active Problem List Diagnosis Postgastric surgery syndrome ADVANCE DIRECTIVE INFORMATION Abnormality of gait Personal history of gastric bypass Moderate malnutrition (HCC) Essential tremor Venous stasis of both lower extremities PAT (paroxysmal atrial tachycardia) (HCC) Persistent atrial fibrillation (HCC) Tachy-corin syndrome (HCC) Cardiac pacemaker in situ Moderate episode of recurrent major depressive disorder (HCC) Anemia Nonrheumatic tricuspid valve regurgitation Severe tricuspid regurgitation Moderate persistent asthma without complication Hypertensive heart disease with chronic diastolic congestive heart failure (HCC) Lumbar radiculopathy Chronic diastolic heart failure (HCC) Unintentional weight loss of 10% body weight within 6 months On tube feeding diet Pulmonary hypertension (HCC) COPD, group B, by GOLD 2017 classification (HCC) Peripheral vascular disease (HCC) PEG (percutaneous endoscopic gastrostomy) status (HCC) Hyperlipidemia Hyperparathyroidism (HCC) Hypocalcemia Primary insomnia At risk for falls Senile osteoporosis Jejunostomy tube present (HCC) Seasonal allergies History of iron deficiency History of vitamin D deficiency Major depressive disorder Gastroesophageal reflux disease History of gastric bypass Severe protein-calorie malnutrition (HCC) Sacroiliitis, not elsewhere classified (HCC) Major depressive disorder, recurrent episode, moderate (HCC) Current Outpatient Medications Medication Sig Dispense Refill Mag-Oxide 200 MG Oral Tablet (Magnesium Oxide) Take 1 Tablet by mouth in the morning and 1 Tablet before bedtime. Lidocaine 4 % External Patch Place 1 Patch topically on the skin daily. Dexamethasone Sodium Phosphate 4 MG/ML Injection Solution (Decadron) Inject intravenously 8 mg as needed for Anaphylaxis (severe allergic reaction) (To be administered in the event of anaphylactic reaction per [facility] IV iron anaphylaxis protocol). 2 mL 11 Acetaminophen 500 MG Oral Tablet (Tylenol) Take 2 Tablets by mouth 3 times a day as needed for Pain, Moderate. 100 Tablet 0 Zinc Sulfate 220 (50 Zn) MG Oral Capsule Take by mouth 1 Capsule in the morning AND 1 Capsule before bedtime. 180 Capsule 0 Polyethylene Glycol 3350 17 GM Oral Packet Take 1 Packet by mouth in the morning. Hydrocortisone 2.5 % External Ointment Apply 2 daily (or more if itchy instead of scratching) to rash on face 454 g 1 Ferrous Sulfate 325 (65 Fe) MG Oral Tablet Take 1 Tablet by mouth daily with breakfast. QC Womens Daily Multivitamin Oral Tablet Take 1 Tablet by mouth in the morning and 1 Tablet before bedtime. Albuterol Sulfate 0.63 MG/3ML Inhalation Nebulization Solution (Accuneb) Inhale 1 Vial via nebulizer every 4 hours as needed for Wheezing. 120 mL 1 Vitamin C 500 MG Oral Tablet (Ascorbic Acid) Take 1 Tablet by mouth in the morning. metOLazone 2.5 MG Oral Tablet (Zaroxolyn) Take 1 Tablet by mouth daily as needed (fluid retention -when directed). 30 Tablet 3 Triamcinolone Acetonide 0.1 % External Ointment (Aristocort) Apply 2x daily (or more if itchy instead of scratching) to rash on body 454 g 1 Fexofenadine HCl 180 MG Oral Tablet (Tiny Allergy) Take 1 Tablet by mouth in the morning. 90 Tablet 3 Peptamen 1.5 Oral Liquid Administer 4 containers daily , as directed at 40ml/hr continuous J tube feeds, via feeding pump. 15667 mL 11 Trolamine Salicylate 10 % External Cream Apply topically to affected area as needed. Apply to affected area Albuterol Sulfate HFA 108 (90 Base) MCG/ACT Inhalation Aerosol Solution Inhale 2 Puffs by mouth every 4 hours as needed for Shortness of Breath. 54 g 1 Digoxin 125 MCG Oral Tablet (Lanoxin) Take 1 Tablet by mouth in the morning. 90 Tablet 3 Vitamin D3 125 MCG (5000 UT) Oral Tablet Disintegrating Take 1 Tablet by mouth daily. Vitamin A 2400 MCG (8000 UT) Oral Tablet Take 1 Tablet by mouth in the morning. Vitamin E 180 MG (400 UNIT) Oral Capsule Take 1 Capsule by mouth in the morning. Vitamin K2 100 MCG Oral Capsule Take 1 Capsule by mouth in the morning. Warfarin Sodium 2.5 MG Oral Tablet (Coumadin) TAKE ONE TO TWO TABLETS BY MOUTH ONCE DAILY DIRECTED 200 Tablet 3 [facility] Calcium Citrate+D3 Oral Tablet Take 4 Tablets by mouth in the morning and 4 Tablets before bedtime. 630mg/12.5mcg. States she takes 3 in the morning and 3 in the evening. . Venlafaxine HCl 100 MG Oral Tablet (Effexor) Take 1 and 1/2 Tablets by mouth in the morning and before bedtime. (Patient taking differently: No sig reported) 270 Tablet 3 Levothyroxine Sodium 50 MCG Oral Tablet (Levoxyl) take one tablet by mouth daily 90 Tablet 3 Torsemide 20 MG Oral Tablet (Demadex) TAKE TWO TABLETS BY MOUTH IN THE MORNING 180 Tablet 3 Calcitriol 0.25 MCG Oral Capsule (Rocaltrol) Take 2 Capsules by mouth in the morning and 2 Capsulesbefore bedtime. 400 Capsule 2 Spironolactone 25 MG Oral Tablet (Aldactone) Take one-half tablet by mouth in the morning. 45 Tablet 3 Omeprazole 20 MG Oral Capsule Delayed Release (PriLOSEC) Take 1 Capsule by mouth in the morning. 100 Capsule 3 Montelukast Sodium 10 MG Oral Tablet (Singulair) Take 1 Tablet by mouth at bedtime. 100 Tablet 3 Ondansetron HCl 4 MG Oral Tablet Take 1 Tablet by mouth every 8 hours as needed for Nausea. 30 Tablet 0 Metoprolol Succinate ER 25 MG Oral Tablet Extended Release 24 Hour (toPROL XL) Take one and one-half tablets by mouth in the morning and one and one-half tablets in the evening. 200 Tablet 3 hydrOXYzine HCl 10 MG Oral Tablet (Atarax) Take 1 Tablet by mouth every 6 hours as needed for Anxiety or Itching. 40 Tablet 1 Syringe Luer Lock 25G X 5/8" 3 ML For vitamin B12 injections 16 Each 2 Compressor Nebulizer Inhale via nebulizer. Use as directed. 1 Each 1 DIURETIC TITRATION PLAN If no improvement on day 3, contact heart failure managing provider. 1 Each0 Blood Pressure Monitor Provide one blood pressure monitor with standard size arm cuff 1 Each 0 Abdominal Binder/Elastic Med Use abdominal binder to hold in feeding tube due to skin irritation 1 Each 0 Current Facility-Administered Medications Medication Dose Route Frequency Provider Last Rate Last Admin vitamin b-12 (Cyanocobalamin) inj 1,000 mcg 1,000 mcg Intramuscular Q4 Weeks Benito Lorenzo DO 1,000 mcg at 06/13/24 1007 Past Medical History: Diagnosis Date Allergic rhinitis Asthma Asthma with COPD (chronic obstructive pulmonary disease) (HCC) Benign neoplasm of colon 07/2009 adenomatous tissue bx, f/u in 3 yrs Cardiac pacemaker in situ 11/03/2018 Cellulitis of right lower extremity 05/21/2022 Closed fracture of sacrum and coccyx with routine healing 02/04/2022 Fall INTEST POSTOP NONABSORB Obesity, BMI not known Pulmonary arterial hypertension (HCC) Past Surgical History: Procedure Laterality Date ANESTH, LOWER ABDOMEN HERNIA REPAIR 2004 2004 - [place] [facility] [place] 05/23/2002 normal screening colo COLONOSCOPY THRU STOMA, W/BIOPSY 07/2009 adenomatous tissue bx, f/u in 3 yrs COLONOSCOPY, DIAGNOSTIC (RECTUM) 09/18/2013 COLONOSCOPY FLEXIBLE PROXIMAL DIAGNOSTIC performed by Manjula Bryson MD at ENDOSCOPY [facility] COLONOSCOPY, DIAGNOSTIC (RECTUM) 03/22/2016 adenomatous polyp, poor prep, repeat 6 mo/[facility] COLONOSCOPY, DIAGNOSTIC (RECTUM) 11/13/2021 adenomatous polyp, repeat 5 yrs / [facility] DEXA SCAN/BONE MINERAL AXIAL 2016 repeat 5 years, 2021 EGD, FLEXIBLE, DIAGNOSTIC 03/22/2016 normal bx/[facility] EGD, FLEXIBLE, DIAGNOSTIC 09/14/2016 hyperplastic polyps, repeat 5 yrs/[facility] EGD, FLEXIBLE, DIAGNOSTIC N/A 08/11/2021 biopsies show mild inflammation of esophagus/EGD/[place] EGD, FLEXIBLE, DIAGNOSTIC 06/18/2022 normal bx / [facility] GASTRIC BYPASS FOR OBESITY 2003 IMPLANT MESH W/ ABD HERNIA REPR/DEBRIDE N/A 06/09/2016 IMPLANTATION MESH WITH INCISIONAL/VENTRAL HERNIA performed by Dustin Smith MD at [facility] INJECT DX/THER SUBSTANCE INTERLAMINAR LUMBAR/SACRAL W IMAGE GUIDE 05/26/2022 INJECTION SPINE LUMBAR OR SACRAL performed by Refugio Noriega DO at [facility] INSERT/REPLACE PACEMAKER,ATRIAL/VENTRICULAR 10/24/2018 IR TUBE REPLACEMENT GASTROSTOMY PERCUTANEOUS OR CECOSTOMY Left 12/30/2023 PERCUTANEOUS REPLACE GASTROSTOMY OR CECOSTOMY TUBE WITH FLUORO performed by Flynn Mesa MD at [facility] JEJUNOSTOMY, LAPAROSCOPIC N/A 08/31/2022 LAPAROSCOPIC ILEOSTOMY OR JEJUNOSTOMY performed by Terry Link MD at [facility] JEJUNOSTOMY, LAPAROSCOPIC N/A 07/01/2023 LAPAROSCOPIC ILEOSTOMY OR JEJUNOSTOMY performed by Terry Link MD at [facility] LIGATE/CUT OVIDUCT(S) AT SURGERY REMOVAL OF APPENDIX 1969 REMOVAL OF SMALL INTESTINE W/FUSION N/A 09/25/2015 ENTERECTOMY SMALL BOWEL RESECTION performed by Dustin Smith MD at [facility] REMOVE GALLBLADDER REMOVE STOMACH, PARTIAL N/A 09/25/2015 GASTRECTOMY PARTIAL WITH GASTROJEJUNOSTOMY performed by Dustin Smith MD at [facility] REPAIR INITIAL INCISIONAL OR VENTRAL HERNIA; REDUCIBLE N/A 09/25/2015 REPAIR INITIAL INCISIONAL /VENTRAL HERNIA REDUCIBLE performed by Dustin Smith MD at [facility] REPAIR INITIAL INCISIONAL OR VENTRAL HERNIA; REDUCIBLE N/A 06/09/2016 REPAIR INITIAL INCISIONAL /VENTRAL HERNIA REDUCIBLE performed by Dustin Smith MD at [facility] SACROILIAC JOINT INJECT W/GUIDANCE 02/23/2023 INJECTION SACROILIAC JOINT performed by Refugio Noriega, DO at OR [facility] TREATMENT OF INCOMPLETE Review of patient's allergies indicates: Allergen Reactions Prolia [Denosumab] SEVERE HYPOCALCEMIA Family History Problem Relation Name Age of Onset Hypertension Mother Kathy Fairbanks Cancer Mother Kathy Fairbanks lung and brain, smoker/Brain & Lung Lung Disorder Mother Kathy Fair[place] Lung Cancer Musculo-skeletal Disorder Mother Kathy Fairbanks spine Hypertension Father Miguel Fairbanks Lung Disorder Father Miguel Fairbanks smoker,emphysema/Ensphema Heart Disorder Father Miguel Fairbanks Cancer Son Irwin skin Cancer Aunt (Unspecified) lung Cancer Aunt (Unspecified) lung Cancer Aunt (Unspecified) lung Cancer Uncle (Unspecified) throat Cancer Uncle (Unspecified) lung Cancer Grandmother (Maternal) Lorelei Nuñez leukemia Arthritis Grandmother (Maternal) Lorelei Simonaalls Blood Disorder Grandmother (Maternal) Lorelei Cornells lukemia Cancer Grandfather (Maternal) Derrick Nuñez prostate Heart Disorder Grandfather (Maternal) Derrick Nuñez Cancer Grandfather (Paternal) [place] Cancer Aunt (Maternal) lung and breast Breast Cancer Aunt (Maternal) Family Status Relation Status Mo Fa Bro Alive Son (Not Specified) AUNT (Not Specified) AUNT (Not Specified) AUNT (Not Specified) UNCLE (Not Specified) UNCLE (Not Specified) MGMA (Not Specified) MGFA (Not Specified) PGFA (Not Specified) MAUNT (Not Specified) Social History Tobacco Use Smoking status: Never Passive exposure: Current Smokeless tobacco: Never Tobacco comments: second hand smoke Substance Use Topics Alcohol use: No Vaping/E-Cigarette Use Vaping/E-Cigarette Use Never User Vaping/E-Cigarette Substances Vaping/E-Cigarette Devices REVIEW OF SYSTEMS: Review of Systems Constitutional: Negative for chills, fatigue, fever and unexpected weight change. Respiratory: Negative for cough, chest tightness, shortness of breath and wheezing. Cardiovascular: Negative for chest pain, palpitations and leg swelling. Gastrointestinal: Negative for abdominal pain, constipation, diarrhea, nausea and vomiting. Musculoskeletal: Negative for arthralgias, gait problem and joint swelling. Skin: Negative for color change, pallor and rash. OBJECTIVE: BP 112/64 (BP Site: Left Arm, BP Position: Sitting, BP Cuff Size: Regular) | Pulse 72 | Temp 36.1 C (97 F) (Tympanic) | Resp 16 | Ht 1.473 m (4' 10") | Wt 49.3 kg (108 lb 9.6 oz) | LMP 10/03/2006| SpO2 98% | BMI 22.70 kg/m | BSA 1.42 m PHYSICAL EXAM: Physical Exam Constitutional: General: She is not in acute distress. Appearance: She is well-developed. Cardiovascular: Rate and Rhythm: Normal rate and regular rhythm. Heart sounds: Normal heart sounds. No murmur heard. No friction rub. No gallop. Pulmonary: Effort: Pulmonary effort is normal. No respiratory distress. Breath sounds: Normal breath sounds. No wheezing or rales. Abdominal: General: Bowel sounds are normal. There is no distension. Palpations: Abdomen is soft. Tenderness: There is no abdominal tenderness. There is no guarding. Musculoskeletal: General: No tenderness or deformity. Normal range of motion. Skin: General: Skin is warm and dry. Coloration: Skin is not pale. Findings: No erythema or rash. Neurological: Mental Status: She is alert and oriented to person, place, and time. ASSESSMENT/PLAN: (Z93.4) Jejunostomy tube present (HCC) (primary encounter diagnosis) Plan: DURABLE MEDICAL EQUIPMENT Will try to get an abdominal binder belt approved as pt is having skin issues with the tape. This will aid in keeping the tube in place. Order in. (J44.9) COPD, group B, by GOLD 2017 classification (HCC) Plan: Breathing at baseline. She is encouraged to continue with her current regimen. (I50.32) Chronic diastolic heart failure (HCC) Plan: At baseline. Euvolemic on exam today. No changes. (Z59.9) Financial difficulties (Z59.9) Housing problems (Z59.41) Food insecurity Plan: Will call [facility] to see what programs they are assisting them with. Surprising if they do not qualify for MA. (Z23) Need for prophylactic vaccination and inoculation against influenza Plan: INFLUENZA VAC., TRIVALENT, HD, PF, 65 AND ABOVE, 0.5 ML IM (FLUZONE HD) Vaccine given. See admin record. (Z23) Need for COVID-19 vaccine Plan: COVID-19, MRNA-LNP, PF, 24-25, 30MCG/0.3ML, IM, 12YRS AND ABOVE ([employer]) Vaccine given. See admin record. Follow-up: 2 weeks Total time today including reviewing chart before the visit, pertinent labs, imaging reports, face to face time, and documentation time was 34 minutes. Olya Kimble DO * Emmy Esposito LPN - 06/27/2024 9:48 AM EDT PRE - ADMINISTRATION DOCUMENTATION Are you experiencing any cold symptoms or fever? No Have you had Guillain-[place] Syndrome (an illness that causes paralysis) within the last 6 weeks? No Have you had the flu shot in the past? YES Have you ever had a reaction to the flu shot? No Emmy Esposito LPN, 06/27/2024 9:48 AM Immunization Administration Documentation Time Out Procedure Performed: Yes Patient Identified (Ask Name/Date of ): Yes Does the patient have a fever greater than 101 degrees today? No Patient allergic to latex? No VFC Stock: No Immunization(s) verified: Yes, Immunization Name: Flu, VIS Sheet(s) given: Yes Verified Side and Site: Yes Verified Shot(s) with Parent(s)/Patient: Yes Pre-Administration Time Out Procedure Performed: Yes Patient Identified (Ask Name/Date of ): Yes Does the patient have a fever greater than 101 degrees today? No Patient allergic to latex? No Has the patient ever fainted after receiving an injection? No VFC Stock: No Immunization(s) verified: Yes, Immunization Name: COVID, VIS Sheet(s) given: Yes Verified Side and Site: Yes Verified Shot(s) with Parent(s)/Patient: Yes documented in this encounter Nursing Notes * Emmy Esposito LPN - 06/27/2024 9:47 AM EDT Patient here for routine follow up visit. Patient reports her tremors are worsening. Also reports her bank account was hacked recently. documented in this encounter Plan of Treatment Upcoming Encounters Date Type Department Care Team (Late st Contact Info) Description 07/06/2024 4:00 PM EDT Home Visit [facility] [address] [facility] [place] [address] Bonny Ferrara, RN [address] [facility] [place] [address] 07/11/2024 10:00 AM EDT Office Visit Family Practice [address] [place] [address] [address] [place] [address] Olya Kimble DO [address] [place] [address] 07/24/2024 12:00 PM EDT Home Visit Care at Home [address] [place] [address] Kristi Raza PA-C [address] [place] [address] 11/30/2024 11:30 AM EST Office Visit [facility] [address] [facility] [address] Tejas Haskins, DO [address] [place] [address] 01/03/2025 1:00 PM EDT Office Visit General Surgery, [facility] [address] [facility] [address] Terry Link MD [address], [place] [id number] Scheduled Procedures Name Priority Associated Diagnoses Date/Ti me COLONOSCOPY FLEXIBLE PROXIMAL DIAGNOSTIC Recall History of colon polyps Health Maintenance Due Date Last Done Comments Alpha-1 Antitrypsin 1970 Cologuard 1997 Fecal Occult Blood Test 1997 Sigmoidoscopy 1997 Adult Wellness Visit 06/28/2024 12/21/2022 Postpon ed from 12/22/2023 (Patient Declined After Education) O2 ASSESSMENT COMPLETED IN PAST YEAR FOR COPD 07/01/2024 07/01/2023 DXA Scan 07/07/2024 07/07/2022, 06/18, 08/29/2017 COVID-19 Vaccine ( season) 2024 06/27/2024, 03/14/2024, 08/08/2023, Additional history exists Depression Monitoring 11/08/2024 11/08/2023 DIG LEVEL FOR [...] D LEVEL ONCE IN A LIFETIME-USE SMARTSET# [id number] Completed 02/03/2024, 11/15/2023, 06/13/2023, Additional history exists Influenza Vaccine (FLU shot) [...] this encounter Medical Devices Implanted Type Area F[place]k Device Identifier Shelf Expiration Date Model / Serial / Lot Sil[place] Square 30cm X 30cm - [id number] Implanted:Qty: 1 on 06/09/2016 by Dustin Smith MD [place] [facility] N/A: Abdomen [employer] 03/16/2021 [id number] / / [id number] documented as of this encounter Visit Diagnoses Diagnosis Jejunostomy tube present (HCC)- Primary Status of other artificial opening of gastrointestinal tract COPD, group B, by GOLD 2017 classification (HCC) Chronic diastolic heart failure (HCC) Chronic diastolic heart failure Financial difficulties Inadequate material resources Housing problems Unspecified housing or economic circumstance Food insecurity Need for prophylactic vaccination and inoculation against influenza Need for COVID-19 vaccine documented in this encounter Advance Directives * Full Code [...] Agents on File Name Relationship Healthcare Agent Relationshi p Communication Praful Higgins Spouse Health Care Agent Care Teams Station Supervisor Relationship Specialty Start Date End Date Olya Kimble DO [address] [place] [address] PCP - General Family Medicine 03/29/24 documented as of this encounter
--- OUTSIDE RECORDS SUMMARY | 2024-07-10 03:39 | External Medical Summary ---
Author Name Unknown Address Unknown Organization [facility] [address] [place] [address] Laboratory Report Ordering Provider Test Date Status JANE BUSTAMANTE 06/25/2024 08:36:00 Final Observation Date Value Abnormality Reference (Units ) Status BUN 06/25/2024 08:36:00 31 Above high normal 6-20 (mg/dL) Final Creatinine 06/25/2024 08:36:00 1.2 Above high normal 0.5-1.0 (mg/dL) Final Glomerular filtration rate/1.73 sq M.predicted [Volume Rate/Area] in Serum, Plasma or Blood by Creatinine-based formula (CKD-EPI) 06/25/2024 08:36:00 47 Below low normal >=60 (mL/min) Final eGFR is calculated based on the CKD-EPI 2020 equation. Sodium 06/25/2024 08:36:00 143 135-146 (m mol/L) Final Potassium 06/25/2024 08:36:00 4.3 3.5-5.1 (m mol/L) Final Cl 06/25/2024 08:36:00 101 98-107 (mm ol/L) Final CO2 06/25/2024 08:36:00 29 22-32 (mmo l/L) Final Anion gap 06/25/2024 08:36:00 13 7-15 (mmol /L) Final Glucose 06/25/2024 08:36:00 66 Below low normal 70- 120 (mg/dL) Final Calcium 06/25/2024 08:36:00 9.2 8.4-10.2 ( mg/dL) Final Performing Location [facility] [address] [place] [id number]
--- OUTSIDE RECORDS SUMMARY | 2024-07-10 03:40 | External Medical Summary | Summary of Care ---
Author Name Unknown Organization [facility] Address [address] [place] [address] Phone [phone] Care Team Providers Care Dairy Specialist Name Role Phone Olya Kimble DO Primary Care Provider Reason for Visit * Reason Onset Date Comments Appointment 06/13/2024 2 week follow up Encounter Details Date Type Department Care Team (Late st Contact Info) Description 06/13/2024 Telephone Family Practice [address] [facility] [place] [address] [place] [id number] Olya Kimble DO [address] [place], [place] [phone] Appointment (2 week follow up) Allergies Active Allergy Reactions Criticality Noted Date Comments Denosumab High 02/22/2023 SEVERE HYPOCALCEMIA documented as of this encounter (statuses as of 06/21/2024) Medications Medication Sig Dispensed Refills Start Date [...] continuous J tube feeds, via feeding pump. 33119 mL 11 07/12/2023 Active Trolamine Salicylate 10 [...] 2.5 MG Oral Tablet (Coumadin)Indication s:Anticoagulation management encounter,[facility] current use of anticoagulant therapy,Permanent atrial fibrillation [...] diversion with duodenal switch 1000 mcg IM [id number] 02/01/2023 Acti ve documented as of this encounter (statuses as of 06/21/2024) Active Problems Problem Noted Date Diagnosed Date Major depressive disorder, recurrent episode, mo derate 11/18/2023 Sacroiliitis, not elsewhere classified 4 Severe protein-calorie [...] in the Comments) Remote Patient Monitoring Vendor: [facility] [place] Device(s): Connected Scale Traditional [...] OPEN INCISION; Date; 04/06/04 Original Weight; 275 [facility]; [facility] [place]geon; Dustin Smith MD REVISION; OPEN INCISIONRevision of gastrojejunostomy for gastrogastric fistula, distalization of marquita limb with 150 cm common channel Date; 09/25/15 [facility]; [facility] Surgeon; Dustin Smith MD Repair recurrentincisional or ventral hernia, age 5 years or over; reducible06/09/16 Implantation of mesh or other prosthesis for incisional or ventral hernia repair. documented as of this encounter (statuses as of 06/21/2024) Resolved Problems Problem Noted Date Diagnosed Date [...] as of this encounter (statuses as of 06/21/2024) Immunizations Name Administration Dates Next Due COVID-19 mRNA, LNP-s, No Pre serve, 2-Dose Series (Vipshop) 08/19/2021,01/01/2021,12/11/2020 COVID-19, MRNA-LNP, 23-24, P F, 30 MCG/0.3 mL, 12 YRS AND ABOVE, IM (ElasticBox-Vitrue) 03/14/2024,08/08/2023 Covid-19 Ad26, Single Dose (Brandicted/[email or web address]) 01/01/2021,12/11/2020 Covid-19, Mrna, Lnp-s, Pf, B ivalent, 30 Mcg, IM, 12 yrs and above (Vipshop) 07/06/2022 Pneumococcal Conjugate Vacc, 13 Valent (Prevnar) [...] encounter Miscellaneous Notes * Telephone Encounter - Alicia Ling OSA - 06/13/2024 10:23 AM EDT Return in about 2 weeks (around 06/27/2024). Not scheduled at checkout, bus waiting. Will call to schedule. documented in this encounter Plan of Treatment Upcoming Encounters Date Type Department Care Team (Late st Contact Info) Description 06/25/2024 7:20 AM EDT Laboratory [facility] [address] [place] [address] [facility], [facility] Draw [address] [place] [address] 06/27/2024 10:00 AM EDT Office Visit Family Practice [address], [place] [address] [facility] [place] [address] Olya Kimble DO 293 [facility] [place] [address] 07/06/2024 4:00 PM EDT [facility] Visit [facility], [facility] 132 [facility] [place] [address] Bonny Ferrara, RN 132 [place] [address] 07/24/2024 12:00 PM EDT Home Visit Care at Home [address] [place], [place] [phone] Kristi Raza PA-C [address] [place] [address] 11/30/2024 11:30 AM EST Office Visit Cardiology, [facility] 132 [facility] [place] [address] Tejas Haskins, DO 132 [place] [address] 01/03/2025 1:00 PM EDT Office Visit General Surgery, [facility] 132 [facility] [place] [address] Terry Link MD [address], [place] [id number] Scheduled Procedures Name Priority Associated Diagnoses Date/Ti [...] D LEVEL ONCE IN A LIFETIME-USE SMARTSET# 63218 Completed 02/03/2024, 11/15/2023, 06/13/2023, Additional history exists [...] this encounter Medical Devices Implanted Type Area Manager Analysis Device Identifier Shelf Expiration Date Model / Serial / Lot Silas Square 30cm X 30cm - [id number] Implanted:Qty: 1 on 06/09/2016 by Dustin Smith MD at [place] [facility] N/A: Abdomen [employer] 03/16/2021 [id number] / / [id number] documented as of this encounter Advance Directives [...] Agents on File Name Relationship Healthcare Agent [facility] Communication Praful Higgins Spouse Health Care Agent Care Teams Dairy Specialist Relationship Specialty Start Date End Date Olya Kimble DO [address] [place] [id number] PCP - General Family Medicine 03/29/24 documented as of this encounter
--- OUTSIDE RECORDS SUMMARY | 2024-07-10 03:40 | External Medical Summary | Summary of Care ---
Author Name Unknown Organization [facility] Address [address] [place] [address] Phone [phone] Care Team Providers Care Tosser Name Role Phone Olya Kimble Talha WELLS Primary Care Provider [phone] Reason for Visit * Reason Onset Date Comments Appointment 06/19/2024 Encounter Details Date Type Department Care Team (Late st Contact Info) Description 06/19/2024 Telephone Care at Home [address] [place] [address] Services, Scheduling [address] [place] [address] Appointment Allergies Active Allergy Reactions Criticality Noted Date Comments Denosumab High 02/22/2023 SEVERE HYPOCALCEMIA documented as of this encounter (statuses as of 06/19/2024) Medications Medication Sig Dispensed Refills Start Date [...] continuous J tube feeds, via feeding pump. 20144 mL 11 07/12/2023 Active Trolamine Salicylate 10 [...] 2.5 MG Oral Tablet (Coumadin)Indication s:Anticoagulation management encounter,[facility] current use of anticoagulant therapy,Permanent atrial fibrillation [...] diversion with duodenal switch 1000 mcg IM [id number] 02/01/2023 Acti ve documented as of this encounter (statuses as of 06/19/2024) Active Problems Problem Noted Date Diagnosed Date [...] in the Comments) Remote Patient Monitoring Vendor: [facility] [place] Device(s): Connected Scale Traditional Pulse Ox [...] OPEN INCISION; Date; 04/06/04 Original Weight; 275 [facility]; [facility] Surgeon; Dustin Smith MD REVISION; OPEN INCISIONRevision of gastrojejunostomy for gastrogastric fistula, distalization of marquita limb with 150 cm common channel Date; 09/25/15 [facility]; [facility] Surgeon; Dustin Smith MD Repair recurrentincisional or ventral hernia, age 5 years or over; reducible06/09/16 Implantation of mesh or other prosthesis for incisional or ventral hernia repair. documented as of this encounter (statuses as of 06/19/2024) Resolved Problems Problem Noted Date Diagnosed Date [...] as of this encounter (statuses as of 06/19/2024) Immunizations Name Administration Dates Next Due COVID-19 mRNA, LNP-s, No Pre serve, 2-Dose Series (Shopventory) 08/19/2021,01/01/2021,12/11/2020 COVID-19, MRNA-LNP, 23-24, P F, 30 MCG/0.3 mL, 12 YRS AND ABOVE, IM (Nasseo-Comirnat) 03/14/2024,08/08/2023 Covid-19 Ad26, Single Dose (Sampa/J&J) 01/01/2021,12/11/2020 Covid-19, Mrna, Lnp-s, Pf, B ivalent, 30 Mcg, IM, 12 yrs and above (Pfizer) 07/06/2022 Pneumococcal Conjugate Vacc, 13 Valent (Prevnar) [...] have money to get more. Sometimes true Childcare Answer Date Recorded Do you feel overwhelmed with taking care of a child, family member or friend? Yes 06/13/2024 Does your family need help f inding childcare? (Household - for ages 0-17 years) Not on file 06/13/2024 Clothing Answer Date Recorded Have you been unable to get clothing when it was really needed? No 06/13/2024 Is your family able to get c lothes or diapers when needed? (Household - for ages 0-17 years) Not on file 06/13/2024 Personal Safety Answer Date Recorded Do you feel unsafe or have concerns for your saf ety? No 06/13/2024 Do you have concerns for you r family's safety? (Household - for ages 0-17 years) Not on file 06/13/2024 Utilities Answer Date Recorded Do you have trouble paying y our heating, water, or electric bill? Yes 06/13/2024 Is your family able to pay t he heat, water, or electric bill? (Household - for ages 0-17 years) Not on file 06/13/2024 Does your family have access to good internet? (Household - for ages 0-17 years) Not on file 06/13/2024 Employment Status Answer Date Recorded Are you unemployed or without regular income? No 06/13/2024 Does the household have a re gular source of income? (Household - for ages 0-17 years) Not on file 06/13/2024 Social Connections Answer Date Recorded How often do you feel lonely or isolated from th ose around you? Rarely 06/13/2024 Financial Resource Strain Answer Date R ecorded Do you have any trouble payi ng for your medications, or do you think you might in the future? Yes 06/13/2024 Does your family have troubl e paying for medicine? (Household - for ages 0-17 years) Not on file 06/13/2024 Transportation Needs Answer Date Record ed READ ONLY Do you have troubl e getting a ride to medical visits or work? Never True 06/13/2024 Does your family have a hard time getting a ride to doctors visits? (Household - for ages 0-17 years) Not on file 06/13/2024 Has lack of transportation k ept you from medical appointments, meetings, work, or from getting things needed for daily living? Check all that apply. Yes, it has kept me from non-medical meetings, appointments, work, or from getting things that I need 06/13/2024 Do you (or your family) have trouble finding or paying for a ride (transportation)? (Household - for ages 0-17 years) Not on file 06/13/2024 Housing Stability Answer Date Recorded Do you currently live in a s helter or have no steady place to sleep at night? No 06/13/2024 READ ONLY Do you think you a re at risk of becoming homeless? No 06/13/2024 Does your family worry about paying for your home or becoming homeless? (Household - for ages 0-17 years) Not on file 0 06/13/2024 Are you homeless or worried that you might be in the future? Yes 06/13/2024 Are you (or your family) janet eless or worried that you might be in the future? (Household - for ages 0-17 years) Not on file Food Insecurity Answer Date Recorded Do you need food for this week? No 06/13/2024 Are you able to get enough f ood for your family? (Household - for ages 0-17 years) Not on file 06/13/2024 Does your family need food t his week? (Household - for ages 0-17 years) Not on file 06/13/2024 Do you always have enough fo od for your family? (Household - for ages 0-17 years) Not on file 06/13/2024 Sex and Gender Information Value Date Recorded [...] encounter Miscellaneous Notes * Telephone Encounter - Brittany Chatterjee OSA - 06/19/2024 9:36 AM EDT Care At Home Outreach Call attempt: 1st Call Call result: Call Successful - Patient enrolled and agreed to visit. Appointment with: Kristi Raza PA-C Visit Date: 07/24/24 Visit Time: noon with spouse, referred by pcp office JARRED Metcalf documented in this encounter Plan of Treatment Upcoming Encounters Date Type Department Care Team (Late st Contact Info) Description 06/20/2024 3:10 PM EDT Home Visit [facility] [address] [place] [address] Sandy Reed, Community Health Training Officer [address] [place] [address] 06/26/2024 3:00 PM EDT Office Visit Family Practice [address], [place] [address] [place] [address] Olya Kimble DO 293 [facility] [place] [address] 07/06/2024 4:00 PM EDT Home Visit [facility], [facility] [address] [place] [address] Bonny Ferrara, RN [address] [place] [address] 07/24/2024 12:00 PM EDT Home Visit Care at Home [address] [place] [address] Kristi Raza PA-C [address] [place] [address] 11/30/2024 11:30 AM EST Office Visit Cardiology, [facility] [address] [place] [address] Tejas Haskins DO [address] [place] [address] 01/03/2025 1:00 PM EDT Office Visit General Surgery, [facility] [address] [place] [address] Terry Link MD [address] [place] [address] Scheduled Procedures Name Priority Associated Diagnoses Date/Ti [...] D LEVEL ONCE IN A LIFETIME-USE SMARTSET# 61427 Completed 02/03/2024, 11/15/2023, 06/13/2023, Additional history exists [...] this encounter Medical Devices Implanted Type Area Commercial Loan Analyst Device Identifier Shelf Expiration Date Model / Serial / Lot Silas Square 30cm X 30cm - [id number] Implanted:Qty: 1 on 06/09/2016 by Dustin Smith MD [place] [facility] N/A: Abdomen [employer] 03/16/2021 [id number] / / [id number] documented as of this encounter Advance Directives [...] Agents on File Name Relationship Healthcare Agent [facility] Communication Praful Higgins Spouse Health Care Agent Care Teams Tosser Relationship Specialty Start Date End Date Olya Kimble DO [address] [place] [address], [place] [address] PCP - General Family Medicine 03/29/24 documented as of this encounter
--- OUTSIDE RECORDS SUMMARY | 2024-07-10 03:40 | External Medical Summary | Summary of Care ---
Author Name Unknown Organization [facility] Address [address] [place] [address] Phone [phone] Care Team Providers Care Local Area Network Systems Adminstrator Name Role Phone Olya Kimble DO Primary Care Provider [phone] Reason for Referral * Ancillary Services (Within 3 days (urgent)) - Authorized Specialty Diagnoses / Procedures Referred By Contac t Referred To Contact Desk Top Publisher Diagnoses Severe protein-calorie malnutrition (HCC) Hypocalcemia B12 deficiency Olya Kimble DO [address] [place] [address] Referral ID Status Reason Start Date Expiration Date Visits Requested Visits Authorized [id number] Authorized Ancillary Services Required 06/13/[phone] Question Answer Referral Priority Within 3 days (urgent) Where should this appointment be scheduled? Willie Comments Is Patient homebound? Yes All sections of this form must be filled out completely. Forms with missing or illegible information will be returned for completion. This form should not be modified in any way. Forms that have been modified will be returned. This form may not be submitted by a home health agency. It must be complete and submitted by the ordering provider. One full business day lead time is required and service will be scheduled based on the next service day for the [facility] does not service every geographical location on a daily basis. Contact [facility] Client Services at to find out service days for a specific location. Medical Laboratory Albumin, bmp, ionized calcium, cbc and pth Patient Name: Andra Higgins : 1950 Sex: female Address [address] [address] Provider: @REF@? Olya Kimble DO? Diagnosis: (F41.1) CLAUDINE (generalized anxiety disorder) (primary encounter diagnosis) (Z59.9) Financial difficulties (E43) Severe protein-calorie malnutrition (HCC) (E83.51) Hypocalcemia (E53.8) B12 deficiency Tests Requested Reason for Visit * Reason Comments Follow Up Encounter Details Date Type Department Care Team (Late st Contact Info) Description 06/13/2024 9:20 AM EDT Office Visit Family Practice 65 [facility] [place] [address] [place] [address] Olya Kimble DO [address] [place] [address] CLAUDINE (generalized anxiety disorder)*; Financial difficulties; Severe protein-calorie malnutrition (HCC); Hypocalcemia; B12 deficiency Allergies Active Allergy Reactions Criticality Noted Date Comments Denosumab High 02/22/2023 SEVERE HYPOCALCEMIA documented as of this encounter (statuses as of 06/14/2024) Medications Medication Sig Dispensed Refills Start Date [...] continuous J tube feeds, via feeding pump. 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 30 Tablet 05/04/2024 Active Abdominal Binder/Elastic MedIndications:Jejun ostomy tube present ([facility]),Postgastric surgery syndrome Use abdominal binder to hold in feeding tube due to skin irritation 1 Each 05/11/2024 Active Metoprolol Succinate ER 25 MG Oral Tablet Extended Release 24 Hour (toPROL XL)Indications:Perma nent atrial fibrillation ([facility]) Take one and one-half tablets by mouth [...] diversion with duodenal switch 1000 mcg IM [id number] 02/01/2023 Acti ve documented as of this encounter (statuses as of 06/14/2024) Active Problems Problem Noted Date Diagnosed Date [...] the Comments) Remote Patient Monitoring Vendor: [facility] Device(s): Connected Scale [...] OPEN INCISION; Date; 04/06/04 Original Weight; [address] [facility]; [facility] Surgeon; Dustin Smith MD REVISION; OPEN INCISIONRevision of gastrojejunostomy for gastrogastric fistula, distalization of marquita limb with 150 cm common channel Date; 09/25/15 [facility]; [facility] Surgeon; Dustin Smith MD Repair recurrentincisional or ventral hernia, age 5 years or over; reducible06/09/16 Implantation of mesh or other prosthesis for incisional or ventral hernia repair. documented as of this encounter (statuses as of 06/14/2024) Resolved Problems Problem Noted Date Diagnosed Date [...] as of this encounter (statuses as of 06/14/2024) Immunizations Name Administration Dates Next Due COVID-19 mRNA, LNP-s, No Pre serve, 2-Dose Series ([employer]) 08/19/2021,01/01/2021,12/11/2020 COVID-19, MRNA-LNP, 23-24, P F, 30 MCG/0.3 mL, 12 YRS AND ABOVE, IM (PFIZER-Comirnaty) 03/14/2024,08/08/2023 Covid-19 Ad26, Single Dose ([employer]) 01/01/2021,12/11/2020 Covid-19, Mrna, Lnp-s, Pf, B ivalent, [...] Sign Reading Time Taken Comments Blood Pressure 124/80 06/13/2024 9:23 AM EDT Pulse 72 06/13/2024 9:23 AM EDT Temperature 36.3 C (97.3 F) 06/13/2024 9:23 AM ED T Respiratory Rate 18 06/13/2024 9:23 AM EDT Oxygen Saturation 92% 06/13/2024 9:23 AM EDT Inhaled Oxygen Concentration - - Weight 49.7 kg (109 lb 9.6 oz) 06/13/2024 9:23 A M EDT Height 147.3 cm (4' 10") 06/13/2024 9:23 AM EDT Body Mass Index 22.91 06/13/2024 9:23 AM EDT documented in this encounter Functional [...] as of this encounter Progress Notes * Sona Mae RN - 06/14/2024 1:54 PM EDT RN Lead: Sona Mae RN Date: 06/14/24 Patient seen for ASC: CLAUDINE and hypocalcemia Connected with patient via phone. Verified patient name/. Assessment: Pt. seen: 06/13/24 Treatment plan: CLAUDINE (generalized anxiety disorder) (primary encounter diagnosis) Plan: hydrOXYzine HCl 10 MG Oral Tablet (Atarax) Pt given hydroxyzine to use if anxious and for itching. Hypocalcemia Plan: PTH, CALCIUM, IONIZED, HOME PHLEBOTOMY REFERRAL OP Orders in. Pt working with endocrinology. Status update: call to pt-she is still itchy. States just received the hydroxyzine in the mail and will start using the for itching and anxiety. Told to monitor and if not helping or symptoms worsening she should call the office. She has follow up appt with Dr Kimble in 2 weeks 06/26/24. Medication Reconciliation: Medication Reconciliation completed: Yes Careteam: Police Aide: Yes Please let patient know you will be sharing with the CM and they may contact patient for future follow up. If patient is case managed, please route note to CM. If patient requires further follow-up for this ASC episode, please reach out directly to the case operator via Teams or [place] Communication. Plan for Future Contacts: Plan to follow up Keep scheduled appointment 2 weeks 06/26/[address] Kimble Advancement/Closure Plan: Patient provided contact information and encouraged to call CM or clinic directly with any changes in condition. * Emmy Esposito LPN - 06/13/2024 10:09 AM EDT Pre-Administration Time Out Procedure Performed: Yes Patient Identified (Ask Name/Date of ): Yes Does the patient have a fever greater than 101 degrees today? No Patient allergic to latex? No Has the patient ever fainted after receiving an injection? No VFC Stock: No Injection(s) verified: Yes, Injection Name: B12 Verified Side and Site: Yes Verified Shot(s) with Parent(s)/Patient: Yes * Olya Kimble DO - 06/13/2024 9:19 AM EDT SUBJECTIVE: Chief Complaint Patient presents with Follow Up HPI: Andra Higgins is a 73 year old female who presents today for regular return. Pt is incredibly upset today. She is shaking and itching her skin quite a bit. She states that their car brokedown last week. She cannot get it from the [employer] because she has no money and even if she could, she would not have money to fix it. She states that Praful tried to kill himself on Tuesday. He hada gun pointed up under his chin. They called 911. She states that the police took the gun. She notes she was surprised he came back home and wasn't admitted. She is worried about him. She states he is having hallucinations. She notes that he apologized for putting her through things but then has not been himself. She notes she has no money until her check comes next Tuesday. She has a $25 gift card for getting her mammogram and that is it. She is trying to figure out if transportation will takeher to the [employer]. She is having difficulty logging into her electric bill account to try to getthe shepherd down. She states that if her rent is raised again, she will not be able to afford it. PHM: Patient Active Problem List Diagnosis Postgastric [...] in the event of anaphylactic reaction per IS IV iron anaphylaxis protocol). 2 mL 11 [...] 1 Packet by mouth in the morning. Syringe Luer Lock 25G X 5/8" 3 ML For vitamin B12 injections 16 Each 2 Hydrocortisone 2.5 % External Ointment Apply 2 [...] continuous J tube feeds, via feeding pump. 24813 mL 11 Trolamine Salicylate 10 % External [...] and 2 Capsulesbefore bedtime. 400 Capsule 2 Omeprazole 20 MG Oral Capsule Delayed Release [...] for Anxiety or Itching. 40 Tablet 1 Compressor Nebulizer Inhale via nebulizer. Use as directed. 1 Each 1 DIURETIC TITRATION PLAN If no improvement on day 3, contact heart failure managing provider. 1 Each0 Spironolactone 25 MG Oral Tablet (Aldactone) Take one-half tablet by mouth in the morning. 45 Tablet 3 Blood Pressure Monitor Provide one blood pressure monitor with standard size arm cuff 1 Each 0 Abdominal Binder/Elastic Med Use abdominal binder to hold in feeding tube due to skin irritation 1 Each 0 Current Facility-Administered Medications Medication Dose Route Frequency Provider Last Rate Last Admin vitamin b-12 (Cyanocobalamin) inj 1,000 mcg 1,000 mcg Intramuscular Q4 Weeks Benito Lorenzo, DO 1,000 mcg at 06/13/24 1007 Past [...] 2004 2004 - abd hernia done at [facility] COLONOSCOPY 05/23/2002 normal screening colo COLONOSCOPY THRU STOMA, W/BIOPSY 07/2009 adenomatous tissue bx, f/u in 3 yrs COLONOSCOPY, DIAGNOSTIC (RECTUM) 09/18/2013 COLONOSCOPY FLEXIBLE PROXIMAL DIAGNOSTIC performed by Manjula Bryson MD at [facility] COLONOSCOPY, DIAGNOSTIC (RECTUM) 03/22/2016 adenomatous polyp, poor prep, repeat 6 mo/[facility] COLONOSCOPY, DIAGNOSTIC (RECTUM) 11/13/2021 adenomatous polyp, repeat 5 yrs / [facility] DEXA SCAN/BONE MINERAL AXIAL 2016 repeat 5 years, 2021 EGD, FLEXIBLE, DIAGNOSTIC 03/22/2016 normal bx/[facility] EGD, FLEXIBLE, DIAGNOSTIC 09/14/2016 hyperplastic polyps, repeat 5 yrs/[facility] EGD, FLEXIBLE, DIAGNOSTIC N/A 08/11/2021 biopsies show mild inflammation of esophagus/EGD/[place] EGD, FLEXIBLE, DIAGNOSTIC 06/18/2022 normal bx / [facility] GASTRIC BYPASS FOR OBESITY 2003 IMPLANT MESH W/ ABD HERNIA REPR/DEBRIDE N/A 06/09/2016 IMPLANTATION MESH WITH INCISIONAL/VENTRAL HERNIA performed by Dustin Smith MD at OR [facility] INJECT DX/THER SUBSTANCE INTERLAMINAR LUMBAR/SACRAL W IMAGE GUIDE 05/26/2022 INJECTION SPINE LUMBAR OR SACRAL performed by Refugio Noriega DO at OR [facility] INSERT/REPLACE PACEMAKER,ATRIAL/VENTRICULAR 10/24/2018 IR TUBE REPLACEMENT GASTROSTOMY PERCUTANEOUS OR CECOSTOMY Left 12/30/2023 PERCUTANEOUS REPLACE GASTROSTOMY OR CECOSTOMY TUBE WITH FLUORO performed by Flynn Mesa MD at [facility] JEJUNOSTOMY, LAPAROSCOPIC N/A 08/31/2022 LAPAROSCOPIC ILEOSTOMY OR JEJUNOSTOMY performed by Terry Link MD at OR [facility] JEJUNOSTOMY, LAPAROSCOPIC N/A 07/01/2023 LAPAROSCOPIC ILEOSTOMY OR JEJUNOSTOMY performed by Terry Link MD at OR [facility] LIGATE/CUT OVIDUCT(S) AT SURGERY REMOVAL OF APPENDIX 1968 REMOVAL OF SMALL INTESTINE W/FUSION N/A 09/25/2015 ENTERECTOMY SMALL BOWEL RESECTION performed by Dustin Smith MD at OR [facility] REMOVE GALLBLADDER REMOVE STOMACH, PARTIAL N/A 09/25/2015 GASTRECTOMY PARTIAL WITH GASTROJEJUNOSTOMY performed by Dustin Smith MD at OR [facility] REPAIR INITIAL INCISIONAL OR VENTRAL HERNIA; REDUCIBLE N/A 09/25/2015 REPAIR INITIAL INCISIONAL /VENTRAL HERNIA REDUCIBLE performed by Dustin Smith MD at [facility] REPAIR INITIAL INCISIONAL OR VENTRAL HERNIA; REDUCIBLE N/A 06/09/2016 REPAIR INITIAL INCISIONAL /VENTRAL HERNIA REDUCIBLE performed by Dustin Smith MD at OR [facility] SACROILIAC JOINT INJECT W/GUIDANCE 02/23/2023 INJECTION SACROILIAC JOINT performed by Refugio Noriega DO at OR [facility] TREATMENT OF INCOMPLETE Review of patient's allergies indicates: Allergen Reactions Prolia [Denosumab] SEVERE HYPOCALCEMIA Family History Problem Relation Name Age of Onset Hypertension Mother Kathy Magdi Cancer Mother Kathy Fairbanks lung and brain, smoker/Brain & Lung Lung Disorder Mother Kathy Fairbanks Lung Cancer Musculo-skeletal Disorder Mother Kathy Fairbanks spine Hypertension Father Miguel Fairbanks Lung Disorder Father Miguel Fairbanks smoker,emphysema/Ensphema Heart Disorder Father Miguel Magdi Cancer Son Irwin skin Cancer Aunt (Unspecified) lung Cancer Aunt (Unspecified) lung Cancer Aunt (Unspecified) lung Cancer Uncle (Unspecified) throat Cancer Uncle (Unspecified) lung Cancer Grandmother (Maternal) Lorelei Nuñez leukemia Arthritis Grandmother (Maternal) Lorelei Nuñez Blood Disorder Grandmother (Maternal) Lorelei Nuñez lukemia Cancer Grandfather (Maternal) Derrick Nuñez prostate Heart Disorder Grandfather (Maternal) Derrick Nuñez Cancer Grandfather (Paternal) [place] Cancer Aunt (Maternal) lung and breast Breast [...] Negative for color change, pallor and rash. As per HPI Psychiatric/Behavioral: As per HPI OBJECTIVE: BP 124/80 (BP Site: Left Arm, BP Position: Sitting, BP Cuff Size: Regular) | Pulse 72 | Temp 36.3 C (97.3 F) (Tympanic) | Resp 18 | Ht 1.473 m (4' 10") | Wt 49.7 kg (109 lb 9.6 oz) | LMP 10/03/2006 | SpO2 92% | BMI 22.91 kg/m | BSA 1.43 m PHYSICAL EXAM: Physical Exam Constitutional: General: [...] not pale. Findings: No erythema or rash. Comments: Extensive itching and excoriation Neurological: Mental Status: She is alert and oriented to person, place, and time. Psychiatric: Comments: Tearful, shaking ASSESSMENT/PLAN: (F41.1) CLAUDINE (generalized anxiety disorder) (primary encounter diagnosis) Plan: hydrOXYzine HCl 10 MG Oral Tablet (Atarax) Pt given hydroxyzine to use if anxious and for itching. (Z59.9) Financial difficulties Plan: Will have case management, NAHID and G@H involved. Discussed with all parties. They will work on making sure she has food. They will see what other services they may qualify for. (E43) Severe protein-calorie malnutrition (HCC) Plan: BASIC METABOLIC PANEL, ALBUMIN, CBC, HOME PHLEBOTOMY REFERRAL OP Pt encouraged to use her home feeds regularly. Will have home phlebotomy out to draw lab studies. (E83.51) Hypocalcemia Plan: PTH, CALCIUM, IONIZED, HOME PHLEBOTOMY REFERRAL OP Orders in. Pt working with endocrinology. (E53.8) B12 deficiency Plan: HOME PHLEBOTOMY REFERRAL OP B12 injection done today. Follow-up: 2 weeks Total time today including reviewing chart before the visit, pertinent labs, imaging reports, face to face time, and documentation time was 46 minutes. Olya Kimble DO documented in this encounter Nursing Notes * Emmy Esposito LPN - 06/13/2024 9:16 AM EDT Patient here for routine follow up visit. Reports she vomited this morning. States she was "sick inher stomach" yesterday as well. Ate some peaches around noon and a meal on wheel at supper time andwas able to keep it down. States she has been drinking water. Pt reports she did not run tube feeding last night d/t not feeling well. Only took digoxin, metoprolol, warfarin today. States most meds she has not taken for a few days. Pt observed shaking, constantly scratching herself all over. States she has too much happening in her life. States her car broke down on the way to [facility] for husbands surgery. States stress d/t condition. States threatened to kill himself on Tuesday. 911 was called, pt was taken to hospital. States pt was seen in hospital ED, catheter was removed, pt returned home. Sheis now providing incontinence care to . documented in this encounter Plan of Treatment Upcoming Encounters Date Type Department Care Team (Late st Contact Info) Description 06/15/2024 12:30 PM EDT Home Visit Care Coordination and Integration [address] [place] [address] Sandy Reed, Community Health Platform Inspector [address] [place] [address] 06/19/2024 7:00 AM EDT Laboratory Lab Mobile Phlebotomy [facility] [address] [facility] [place] [address] [facility], [facility] Mobile Home Draw [address] [facility] [place] [address] 06/19/2024 1:50 PM EDT Anticoagulation Family Practice 65 [facility] [address] [place] [phone] College, Pharmacist [address] [address] 06/19/2024 2:00 PM EDT Nurse Only Ancillary [facility] [address] [facility] [address] [facility], Nurse [address] Wellness Visit [address] [address] 06/26/2024 3:00 PM EDT Office Visit Family Practice 65 [facility] [address] [place] [id number] Olya Kimble, DO [address] [place] [address] 07/06/2024 4:00 PM EDT Home Visit [facility] [address] [place] [address] Bonny Ferrara, RN [address] [place] [address] 11/30/2024 11:30 AM EST Office Visit Cardiology, [facility] [address] [place] [address] Tejas Haskins, DO [address] [place] [address] 01/03/2025 1:00 PM EDT Office Visit General Surgery, [facility] [address] [place] [address] Terry Link MD [address] [place] [address] Scheduled Orders Name Type Priority Associated Diagnoses Orde r Schedule BASIC METABOLIC PANEL Lab Routine Severe protein-calorie malnutrition (HCC) Expected: 06/13/2024 (Approximate), Expires: 06/13/2025 PTH Lab Routine Hypocalcemia Expected: 06/13/2024 (Approximate), Expires: 06/13/2025 ALBUMIN Lab Routine Severe protein-calorie malnutrition (HCC) Expected: 06/13/2024 (Approximate), Expires: 06/13/2025 CALCIUM, IONIZED Lab Routine Hypocalcemia Expected: 06/13/2024 (Approximate), Expires: 06/13/2025 CBC Lab Routine Severe protein-calorie malnutrition (HCC) Expected: 06/13/2024 (Approximate), Expires: 06/13/2025 Scheduled Procedures Name Priority Associated Diagnoses Date/Ti me COLONOSCOPY FLEXIBLE PROXIMAL DIAGNOSTIC Recall History of colon polyps Scheduled Referrals Name Type Priority Associated Diagnoses Orde r Schedule HOME PHLEBOTOMY REFERRAL OP Referral Within 3 days (urgent) Severe protein-calorie malnutrition (HCC) Hypocalcemia B12 deficiency Ordered: 06/13/2024 Health Maintenance Due Date Last Done Comments [...] 03/29/2024, 05/0 12/2023, 02/03/2024, Additional history exists Colonoscopy 11/13/2026 11/13/2021, 08/18, 03/22/2016, Additional history exists Colorectal Cancer Screening 11/13/2026 DTap/Tdap Vaccines (4 - Td or Tdap) 07/08/2028 07/08/2018, 07/08/2018, 08/20/2008 Lipid Panel 11/15/2028 11/15/2023, 010 02/2023, 06/14/2022, Additional history exists Pneumococcal Vaccine: 65+ Years Completed 08/14/2020, 09/11/2018, 08/15/2017, Additional history exists RETIRED - COLONOSCOPY-EVERY 5 YRS AGES 18-100 Discontinued 11/13/2021, 09/14/2016, 03/22/2016, Additional history exists Zoster Vaccines Completed 08/11/2022, 05/17, 08/21/2013 VITAMIN D LEVEL ONCE IN A LIFETIME-USE SMARTSET# [id number] Completed 02/03/2024, 11/15/2023, 06/13/2023, Additional history exists [...] this encounter Medical Devices Implanted Type Area Dispatcher Tugboat Device Identifier Shelf Expiration Date Model / Serial / Lot Sil[employer] Square 30cm X 30cm - [id number] Implanted:Qty: 1 on 06/09/2016 by Dustin Smith MD at OR [facility] N/A: Abdomen [employer] 03/16/2021 [id number] / / [id number] documented as of this encounter Visit Diagnoses Diagnosis CLAUDINE (generalized anxiety disorder)- Primary Generalized anxiety disorder Financial difficulties Inadequate material resources Severe protein-calorie malnutrition (HCC) Other severe protein-calorie malnutrition Hypocalcemia B12 deficiency Other B-complex deficiencies documented in this encounter Administered Medications Active Administered Medications - up to 3 most recent administrations Medication Order MAR Action Action Date Dose Rate Site vitamin b-12 (Cyanocobalamin) inj 1,000 mcg 1,000 mcg, Intramuscular, [id number], First dose on Tue02/01/23 at 0000, Until Discontinued Given 06/13/2024 10:07 AM EDT 1,000 mcg Deltoid Left Upper Given 05/11/2024 10:30 AM EDT 1,000 mcg D eltoid Left Upper Given 04/02/2024 10:29 AM EDT 1,000 mcg D eltoid Left Upper documented in this encounter Advance Directives * [...] Agents on File Name Relationship Healthcare Agent [facility] Communication Praful Higgins Spouse Health Care Agent Care Teams Local Area Network Systems Adminstrator Relationship Specialty Start Date End Date Olya Kimble DO [address] [place] [address] PCP - General Family Medicine 03/29/24 documented as of this encounter
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
--- OUTSIDE RECORDS SUMMARY | 2024-07-10 03:40 | External Medical Summary | Summary of Care ---
Author Name Unknown Organization [facility] Address [address] [place] [address] Phone [phone] Care Team Providers Care Key Entry Operator Name Role Phone Lamin Olya Palencia DO Primary Care Provider [phone] Reason for Visit * Reason Onset Date Comments [facility]: Maintenance 06/23/2024 Encounter Details Date Type Department Care Team (Late st Contact Info) Description 06/23/2024 Telephone [facility], [place] [address] [place] [address] Ghislaine Tomas LPN [address] [place] [address] [facility]: Maintenance Allergies Active Allergy Reactions Criticality Noted Date Comments Denosumab High 02/22/2023 SEVERE HYPOCALCEMIA documented as of this encounter (statuses as of 06/23/2024) Medications Medication Sig Dispensed Refills Start Date [...] continuous J tube feeds, via feeding pump. 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,Permanent atrial fibrillation [...] diversion with duodenal switch 1000 mcg IM [id number] 02/01/2023 Acti ve documented as of this encounter (statuses as of 06/23/2024) Active Problems Problem Noted Date Diagnosed Date [...] in the Comments) Remote Patient Monitoring Vendor: [facility] Device(s): Connected Scale Traditional Pulse [...] Date; 04/06/04 Original Weight; 275 [facility]; [facility] [place]; Dustin Smith MD REVISION; OPEN INCISIONRevision of gastrojejunostomy for gastrogastric fistula, distalization of marquita limb with 150 cm common channel Date; 09/25/15 [facility]; [facility] Surgeon; Dustin Smith MD Repair recurrentincisional or ventral hernia, age 5 years or over; reducible06/09/16 Implantation of mesh or other prosthesis for incisional or ventral hernia repair. documented as of this encounter (statuses as of 06/23/2024) Resolved Problems Problem Noted Date Diagnosed Date [...] as of this encounter (statuses as of 06/23/2024) Immunizations Name Administration Dates Next Due COVID-19 mRNA, LNP-s, No Pre serve, 2-Dose Series ([employer]) 08/19/2021,01/01/2021,12/11/2020 COVID-19, MRNA-LNP, 23-24, P F, 30 MCG/0.3 mL, 12 YRS AND ABOVE, IM ([employer]) 03/14/2024,08/08/2023 Covid-19 Ad26, Single Dose ([employer]) 01/01/2021,12/11/2020 Covid-19, Mrna, Lnp-s, Pf, B ivalent, 30 Mcg, IM, 12 yrs and above ([employer]) 07/06/2022 Pneumococcal Conjugate Vacc, 13 Valent (Prevnar) [...] encounter Miscellaneous Notes * Telephone Encounter - Ghislaine Tomas LPN - 06/23/2024 9:13 AM EDT Images from the original note were not included. [facility] Remote Patient Monitoring Unable to contact patient: Trigger type: Abnormal reading(s): Device(s) Triggered: AMC (Advanced Monitored Caregiving): Scale: Trigger weight: 113.2 lbs; weight increased 6 lbs in 5 day(s) Plan: Route to RNCM (Registered Nurse Ediphone Operator) in care team LISA Quiñonez at Home 06/23/2024,9:13 AM documented in this encounter Plan of Treatment Upcoming Encounters Date Type Department Care Team (Late st Contact Info) Description 06/25/2024 7:20 AM EDT Laboratory Lab Mobile Phlebotomy [facility] [address] [facility] [place] [address] [facility], Gml Mobile Home Draw [address] [facility] [place] [address] 06/27/2024 10:00 AM EDT Office Visit Family Practice [address] [place] [address] [facility] [place] [address] Olya Kimble DO [address] [facility] [address] 07/06/2024 4:00 PM EDT Home Visit [facility], [facility] 132 [facility] [place] [address] Bonny Ferrara RN 132 [facility] [place] [address] 07/24/2024 12:00 PM EDT Home Visit Care at Home [address] [place] [address] Kristi Raza PA-C [address] [place] [address] 11/30/2024 11:30 AM EST Office Visit Cardiology, [facility] 132 [facility] [place] [address] Tejas Haskins DO 132 [facility] [place] [address] 01/03/2025 1:00 PM EDT Office Visit General Surgery, [facility] 132 [facility] [place] [address] Terry Link MD [address] [place], [place] [id number] Scheduled Procedures Name Priority Associated Diagnoses Date/Ti [...] D LEVEL ONCE IN A LIFETIME-USE SMARTSET# [id number] Completed 02/03/2024, 11/15/2023, 06/13/2023, Additional history exists [...] this encounter Medical Devices Implanted Type Area Land Management Supervisor Device Identifier Shelf Expiration Date Model / Serial / Lot Shannonsh Square 30cm X 30cm - [id number] Implanted:Qty: 1 on 06/09/2016 by Dustin Smith MD [place] [facility] N/A: Abdomen [employer] 03/16/2021 [id number] / / [id number] documented as of this encounter Advance Directives [...] Higgins Spouse Health Care Agent Care Teams Key Entry Operator Relationship Specialty Start Date End Date Olya Kimble DO [address] [place] [address] PCP - General Family Medicine 03/29/24 documented as of this encounter
--- OUTSIDE RECORDS SUMMARY | 2024-07-10 03:40 | External Medical Summary | Summary of Care ---
Author Name Unknown Organization [facility] Address [address] [place] [address] Phone [phone] Care Team Providers Care Coil Former Name Role Phone Xenadebra Olya Palencia DO Primary Care Provider [phone] Reason for Visit * Reason Onset Date Comments [facility]: Maintenance 05/25/2024 Encounter Details Date Type Department Care Team (Late st Contact Info) Description 05/25/2024 Telephone [facility], [facility] [address] [place] [address] Lula Hermosillo, LISA [address] [place] [address] [facility]: Maintenance Allergies Active Allergy Reactions Criticality Noted Date Comments Denosumab High 02/22/2023 SEVERE HYPOCALCEMIA documented as of this encounter (statuses as of 05/25/2024) Medications Medication Sig Dispensed Refills Start Date [...] continuous J tube feeds, via feeding pump. 00459 mL 11 07/12/2023 Active Trolamine Salicylate 10 [...] 2.5 MG Oral Tablet (Coumadin)Indication s:Anticoagulation management encounter,detention current use of anticoagulant therapy,Permanent atrial fibrillation [...] diversion with duodenal switch 1000 mcg IM [id number] 02/01/2023 Acti ve documented as of this encounter (statuses as of 05/25/2024) Active Problems Problem Noted Date Diagnosed Date [...] in the Comments) Remote Patient Monitoring Vendor[place] [facility] [place](s): Connected Scale Traditional [...] OPEN INCISION; Date; 04/06/04 Original Weight; 275 [facility]; [facility] Surgeon; Dustin Smith MD REVISION; OPEN INCISIONRevision of gastrojejunostomy for gastrogastric fistula, distalization of marquita limb with 150 cm common channel Date; 09/25/15 [facility]; [facility] Surgeon; Dustin Smith MD Repair recurrentincisional or ventral hernia, age 5 years or over; reducible06/09/16 Implantation of mesh or other prosthesis for incisional or ventral hernia repair. documented as of this encounter (statuses as of 05/25/2024) Resolved Problems Problem Noted Date Diagnosed Date [...] as of this encounter (statuses as of 05/25/2024) Immunizations Name Administration Dates Next Due COVID-19 mRNA, LNP-s, No Pre serve, 2-Dose Series ([employer]) 08/19/2021,01/01/2021,12/11/2020 COVID-19, MRNA-LNP, 23-24, P F, 30 MCG/0.3 mL, 12 YRS AND ABOVE, IM ([employer]Comirnat[employer]s) 03/14/2024,08/08/2023 Covid-19 Ad26, Single Dose ([employer] (formerly known [employer]) 01/01/2021,12/11/2020 Covid-19, Mrna, Lnp-s, Pf, B ivalent, 30 Mcg, IM, 12 yrs and above ([employer]) 07/06/2022 Pneumococcal Conjugate Vacc, 13 Valent (Prevnar) [...] you got the money to buy more. Never true 11/08/19 24 Within the past 12 months, t he food you bought just didn't last and you didn't have money to get more. Never true 11/08/2023 Childcare Answer Date Recorded Do you feel overwhelmed with taking care of a child, family member or friend? Yes 11/08/2023 Does your family need help f inding childcare? (Household - for ages 0-17 years) Not on file 11/08/2023 Clothing Answer Date Recorded Have you been unable to get clothing when it was really needed? No 11/08/2023 Is your family able to get c lothes or diapers when needed? (Household - for ages 0-17 years) Not on file 11/08/2023 Personal Safety Answer Date Recorded Do you feel unsafe or have concerns for your saf ety? No 11/08/2023 Do you have concerns for you r family's safety? (Household - for ages 0-17 years) Not on file 11/08/2023 Utilities Answer Date Recorded Do you have trouble paying y our heating, water, or electric bill? No 11/08/2023 Is your family able to pay t he heat, water, or electric bill? (Household - for ages 0-17 years) Not on file 11/08/2023 Does your family have access to good internet? (Household - for ages 0-17 years) Not on file 11/08/2023 Employment Status Answer Date Recorded Are you unemployed or without regular income? No 11/08/2023 Does the household have a re gular source of income? (Household - for ages 0-17 years) Not on file 11/08/2023 Social Connections Answer Date Recorded How often do you feel lonely or isolated from th ose around you? Never 11/08/2023 Financial Resource Strain Answer Date R ecorded Do you have any trouble payi ng for your medications, or do you think you might in the future? No 11/08/2023 Does your family have troubl e paying for medicine? (Household - for ages 0-17 years) Not on file 11/08/2023 Transportation Needs Answer Date Record ed READ ONLY Do you have troubl e getting a ride to medical visits or work? Never True 11/08/2023 Does your family have a hard time getting a ride to doctors visits? (Household - for ages 0-17 years) Not on file 11/08/2023 Has lack of transportation k ept you from medical appointments, meetings, work, or from getting things needed for daily living? Check all that apply. (Adult - for ages 18 years and over) Not on file 11/08/2023 Do you (or your family) have trouble finding or paying for a ride (transportation)? (Household - for ages 0-17 years) Not on file 11/08/2023 Housing Stability Answer Date Recorded Do you currently live in a s helter or have no steady place to sleep at night? No 11/08/2023 READ ONLY Do you think you a re at risk of becoming homeless? No 11/08/2023 Does your family worry about paying for your home or becoming homeless? (Household - for ages 0-17 years) Not on file 0 11/08/2023 Are you homeless or worried that you might be in the future? (Adult - for ages 18 years and over) Not on file Are you (or your family) janet eless or worried that you might be in the future? (Household - for ages 0-17 years) Not on file Food Insecurity Answer Date Recorded Do you need food for this week? No 11/08/2023 Are you able to get enough f ood for your family? (Household - for ages 0-17 years) Not on file 11/08/2023 Does your family need food t his week? (Household - for ages 0-17 years) Not on file 11/08/2023 Do you always have enough fo od for your family? (Household - for ages 0-17 years) Not on file 11/08/2023 Sex and Gender Information Value Date Recorded [...] encounter Miscellaneous Notes * Telephone Encounter - Lula Hermosillo LPN - 05/25/2024 11:35 AM EDT Images from the original note were not included. [facility] Remote Patient Monitoring Unable to contact patient: Trigger type: Abnormal reading(s): Device(s) Triggered: AMC (Advanced Monitored Caregiving): Scale: Trigger priority per AMC: 110 LM to please cb documented in this encounter Plan of Treatment Upcoming Encounters Date Type Department Care Team (Late st Contact Info) Description 05/31/2024 2:30 PM EDT [facility] Visit [facility] [address] [place] [address] Bonny Ferrara RN [address] [place] [address] 06/01/2024 8:40 AM EDT Office Visit Family Practice 65 [facility] 293 [place] [phone] Olya Kimble, DO [address] [place] [address] 06/01/2024 9:20 AM EDT Anticoagulation Family Practice 65 [facility] [address] [place] [address] College, Pharmacist [address] [address] 06/19/2024 2:00 PM EDT Nurse Only Ancillary [address] [place] [address] College, Nurse Annual Wellness Visit [address] [address] 11/30/2024 11:30 AM EST Office Visit Cardiology, [facility] [address] Tejas Haskins, DO 132 [facility] [place] [address] 01/03/2025 1:00 PM EDT Office Visit General Surgery, [facility] 132 [facility] [place] [address] Trery Link MD [address] [place] [address] Scheduled Procedures Name Priority Associated [...] Additional history exists Colorectal Cancer Screening 11/13/2026 DTaP,Tdap,and Td Vaccines (4 - Td or Tdap) 07/08/2028 07/08/2018, 07/08/2018, 08/20/2008 Lipid Panel 11/15/2028 11/15/2023, 02/2023, 06/14/2022, Additional history exists Pneumococcal Vaccine: 65+ Years Completed 08/14/2020, 09/11/2018, 08/15/2017, Additional history exists RETIRED - COLONOSCOPY-EVERY 5 YRS AGES 18-100 Discontinued 11/13/2021, 09/14/2016, 03/22/2016, Additional history exists Zoster Vaccines Completed 08/11/2022, 05/17, 08/21/2013 VITAMIN D LEVEL ONCE IN A LIFETIME-USE SMARTSET# [id number] Completed 02/03/2024, 11/15/2023, 06/13/2023, Additional history exists [...] this encounter Medical Devices Implanted Type Area Group Rooms Coordinator Device Identifier Shelf Expiration Date Model / Serial / Lot Shannonsh Square 30cm X 30cm - [id number] Implanted:Qty: 1 on 06/09/2016 by Dustin Smith MD at OR [facility] N/A: Abdomen [employer] 03/16/2021 [id number] / / [id number] documented as of this encounter Advance Directives [...] Agents on File Name Relationship Healthcare Agent [facility] Communication Praful Higgins Spouse Health Care Agent Care Teams Coil Former Relationship Specialty Start Date End Date Olya Kimble DO [address] [place] [address] PCP - General Family Medicine 03/29/24 documented as of this encounter
--- OUTSIDE RECORDS SUMMARY | 2024-07-10 03:41 | External Medical Summary | Summary of Care ---
Author Name Unknown Organization [facility] Address [address] [place] [place] [address] Phone [phone] Care Team Providers Care Rice Field Worker Name Role Phone Xenadebra Olya Palencia DO Primary Care Provider [phone] Reason for Visit * Reason Onset Date Comments [facility]: Maintenance 05/25/2024 Encounter Details Date Type Department Care Team (Late st Contact Info) Description 05/25/2024 Telephone [facility], [place] [facility] [address] [facility] [place] [address] [facility], Nurse [facility] 1000 [address] [facility] [place] [address] [facility]: Maintenance Allergies Active [...] continuous J tube feeds, via feeding pump. 49588 mL 11 07/12/2023 Active Trolamine Salicylate 10 [...] 2.5 MG Oral Tablet (Coumadin)Indication s:Anticoagulation management encounter,[facility] current use of anticoagulant therapy,Permanent atrial fibrillation [...] diversion with duodenal switch 1000 mcg IM [id number] 02/01/2023 Acti ve documented as of this [...] the Comments) Remote Patient Monitoring Vendor: [facility] [place] Device(s): Connected Scale Traditional Pulse Ox Self [...] OPEN INCISION; Date; 04/06/04 Original Weight; 275 [facility]; [facility] Surgeon; Dustin Smith MD REVISION; OPEN INCISIONRevision of gastrojejunostomy for gastrogastric fistula, distalization of marquita limb with 150 cm common channel Date; 09/25/15 [facility]; [facility] Surgeon; Dustin Smith MD Repair recurrentincisional or [...] mRNA, LNP-s, No Pre serve, 2-Dose Series ([employer]) 08/19/2021,01/01/2021,12/11/2020 COVID-19, MRNA-LNP, 23-24, P F, 30 MCG/0.3 mL, 12 YRS AND ABOVE, IM ([employer]Comirnat[employer]Stat) 03/14/2024,08/08/2023 Covid-19 Ad26, Single Dose ([employer]) 01/01/2021,12/11/2020 Covid-19, Mrna, Lnp-s, Pf, B ivalent, 30 Mcg, IM, 12 yrs and above ([employer]) 07/06/2022 Pneumococcal Conjugate Vacc, 13 Valent (Prevnar) [...] encounter Miscellaneous Notes * Telephone Encounter - Wendi Watkins LPN - 05/25/2024 11:26 AM EDT Images from the original note were not included. [facility] Remote Patient Monitoring Unable to contact patient: Trigger type: Abnormal reading(s): Device(s) Triggered: AMC (Advanced Monitored Caregiving): Scale: Trigger weight: 110 lbs; weight increased 6.6 lbs in 6 day(s) Plan: call to patient for amc weight trigger. Left message on mobile number for return call to [facility] at Home 05/25/2024,11:26 AM documented in this encounter Plan of Treatment Upcoming Encounters Date Type Department Care Team (Late st Contact Info) Description 05/31/2024 2:30 PM EDT Home Visit [facility], [facility] 132 [facility] [place] [address] Bonny Ferrara, RN 132 [facility] [place] [address] 06/01/2024 8:40 AM EDT Office Visit Family Practice [address] [phone] Olya Kimble, DO [address] [place] [address] 06/01/2024 9:20 AM EDT Anticoagulation Family Practice 65 [facility] 293 [place] [phone] [place], Pharmacist [address] [address] 06/19/2024 2:00 PM EDT Nurse Only Ancillary [address] [address] College, Nurse Annual Wellness Visit [address] [address] 11/30/2024 11:30 AM EST Office Visit Cardiology, [facility] 132 [facility] [place] [address] Tejas Haskins, DO 132 [facility] [place] [address] 01/03/2025 1:00 PM EDT Office Visit General Surgery, [facility] 132 [facility] [place] [address] Terry Link MD [address] [place] [address] Scheduled Procedures Name Priority Associated [...] 03/29/2024, 050 12/2023, 02/03/2024, Additional history exists Colonoscopy 11/13/2026 [...] D LEVEL ONCE IN A LIFETIME-USE SMARTSET# [id number] Completed 02/03/2024, 11/15/2023, 06/13/2023, Additional history exists [...] this encounter Medical Devices Implanted Type Area Security Nurse Device Identifier Shelf Expiration Date Model / Serial / Lot Shannon Square 30cm X 30cm - [id number] Implanted:Qty: 1 on 06/09/2016 by Dustin mSith MD at OR [facility] N/A: Abdomen [employer] 03/16/2021 [id number] / / [id number] documented as of this encounter Advance Directives [...] Agents on File Name Relationship Healthcare Agent [facility] Communication Praful Higgins Spouse Health Care Agent Care Teams Rice Field Worker Relationship Specialty Start Date End Date Olya Kimble DO 293 [place] [address] PCP - General Family Medicine 03/29/24 documented as of this encounter
--- OUTSIDE RECORDS SUMMARY | 2024-07-10 03:41 | External Medical Summary | Summary of Care ---
Author Name Unknown Organization [facility] Address [address] [place] [address] Phone [phone] Care Team Providers Care Carton Folder Name Role Phone Lamin Olya Palencia DO Primary Care Provider [phone] Reason for Visit * Reason Onset Date Comments [facility]: Screening 05/23/2024 Encounter Details Date Type Department Care Team ([facility] st Contact Info) Description 05/23/2024 Telephone [facility], [facility] [address] [facility] [place] [address] Coordinator, [facility] [address] [facility] [place] [address] [facility]: Screening Allergies Active Allergy Reactions Criticality Noted Date Comments Denosumab High 02/22/2023 SEVERE HYPOCALCEMIA documented as of this encounter (statuses as of 05/23/2024) Medications Medication Sig Dispensed Refills Start Date [...] continuous J tube feeds, via feeding pump. 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,Permanent atrial [...] diversion with duodenal switch 1000 mcg IM [id number] 02/01/2023 Acti ve documented as of this encounter (statuses as of 05/23/2024) Active Problems Problem Noted Date Diagnosed Date [...] in the Comments) Remote Patient Monitoring [place] [facility] [place]s): Connected Scale Traditional Pulse [...] Date; 04/06/04 Original Weight; 275 [facility]; [place] Surgeon; Dustin Smith MD REVISION; OPEN INCISIONRevision of gastrojejunostomy for gastrogastric fistula, distalization of marquita limb with 150 cm common channel Date; 09/25/15 [facility]; [place] Surgeon; Dustin Smith MD Repair recurrentincisional or ventral hernia, age 5 years or over; reducible06/09/16 Implantation of mesh or other prosthesis for incisional or ventral hernia repair. documented as of this encounter (statuses as of 05/23/2024) Resolved Problems Problem Noted Date Diagnosed Date [...] as of this encounter (statuses as of 05/23/2024) Immunizations Name Administration Dates Next Due COVID-19 mRNA, LNP-s, No Pre serve, 2-Dose Series ([employer]) 08/19/2021,01/01/2021,12/11/2020 COVID-19, MRNA-LNP, 23-24, P F, 30 MCG/0.3 mL, 12 YRS AND ABOVE, IM ([employer]-Comirnaty) 03/14/2024,08/08/2023 Covid-19 Ad26, Single Dose ([employer]) 01/01/2021,12/11/2020 Covid-19, Mrna, Lnp-s, Pf, B ivalent, [...] encounter Miscellaneous Notes * Telephone Encounter - Velma Obrien LPN - 05/23/2024 9:39 AM EDT Images from the original note were not included. [facility] Remote Patient Monitoring Able to contact patient: Trigger type: Abnormal reading(s): Symptom review: None Diet Reviewed: Yes. Patient has had any foods high in sodium: No Fluid Intake Reviewed: Yes. Patient is on a fluid restriction: Yes, restriction amount in milliliters or liters: Adherent to restriction: Yes Self-Management Plan Reviewed: Red Flags: edema, SOB Risk assignment recommendation: Moderate risk findings (check as applicable): [] Moderate trigger priority on AMC [] Confirmed tympanic equivalent temperature 100.4-101.9 F one hour post administration of antipyretic [x] Weight gain of 2.1-4.9 lbs over 1-2 days [] Confirmed new sustained resting HR greater than 105WITHOUT symptoms [] Weight gain of greater than or [...] WITH symptoms Additional risk selection justification: Spoke with pt she feels well today. Did miss a diuretic dose yesterday because she was out to an appt for her . Back to usual routine today. Overall risk and identified plan: Moderate risk: documented in this encounter Plan of Treatment Upcoming Encounters Date Type Department Care Team (Late st Contact Info) Description 05/31/2024 2:30 PM EDT [facility] Visit [facility] 132 [facility] [place] [address] Bonny Ferrara RN 132 [facility] [place] [address] 06/01/2024 8:40 AM EDT Office Visit [address] 293 [place] [address] Olya Kimble DO 293 [place] [address] 06/01/2024 9:20 AM EDT Anticoagulation Family Practice 65 [facility] 293 [place] [address] College, Pharmacist [address] [address] 06/19/2024 2:00 PM EDT Nurse Only Ancillary 65 [facility] 293 [place] [address] College, Nurse Annual Wellness Visit [address] [address] 11/30/2024 11:30 AM EST Office Visit Cardiology, [facility] 132 [facility] [place] [address] Tejas Haskins, 132 [facility] [place] [address] 01/03/2025 1:00 PM EDT Office Visit General Surgery, [facility] 132 [place] [address] Terry Link MD [address] [place] [address] Scheduled Procedures Name Priority Associated [...] D LEVEL ONCE IN A LIFETIME-USE SMARTSET# [id number] Completed 02/03/2024, 11/15/2023, 06/13/2023, Additional history exists [...] this encounter Medical Devices Implanted Type Area Privacy Analyst Device Identifier Shelf Expiration Date Model / Serial / Lot [facility] Square 30cm X 30cm - [id number] Implanted:Qty: 1 on 06/09/2016 by Dustin Smith MD at OR [place] N/A: Abdomen [employer] 03/16/2021 [id number] / / [id number] documented as of this encounter Advance Directives [...] Agents on File Name Relationship Healthcare Agent [facility] Communication Praful Higgins Spouse Health Care Agent Care Teams Carton Folder Relationship Specialty Start Date End Date Olya Kimble DO 293 [place] [address] PCP - General Family Medicine 03/29/24 documented as of this encounter
--- OUTSIDE RECORDS SUMMARY | 2024-07-10 03:41 | External Medical Summary | Summary of Care ---
Author Name Unknown Organization [facility] Address [address] [place] [address] Phone [phone] Care Team Providers Care Certified Fire Investigator Name Role Phone Olya Kimble DO Primary Care Provider [phone] Reason for Visit * Reason Onset Date Comments Order Request 05/11/2024 Encounter Details Date Type Department Care Team (Late st Contact Info) Description 05/11/2024 Telephone Family Practice [address] [facility] [address] [place] [address] Olya Kimble DO [address] [place] [address] Order Request (/) Allergies Active Allergy Reactions Criticality Noted Date Comments Denosumab High 02/22/2023 SEVERE HYPOCALCEMIA documented as of this encounter (statuses as of 05/14/2024) Medications Medication Sig Dispensed Refills Start Date [...] continuous J tube feeds, via feeding pump. 64939 mL 11 07/12/2023 Active Trolamine Salicylate 10 [...] Capsule by mouth in the morning. Active Metoprolol Succinate ER 25 MG Oral Tablet Extended Release 24 Hour (toPROL XL)Indications:Perma nent atrial fibrillation (HCC) Take 1 tablet in the morning and 1.5 tablets in the evening. 200 Tablet 3 11/02/2023 Active Additional Information Patient taking differently: Take 1.5 tablets in the morning and 1.5 tablets in the evening., Reported on 04/02/2024 Warfarin Sodium 2.5 MG Oral Tablet (Coumadin)Indication [...] Blood Pressure MonitorIndications:L ightheadedness,Persi stent atrial fibrillation ([facility]),Tachy-corin syndrome ([facility]),Hypertensive heart disease with chronic diastolic congestive heart failure ([facility]) Provide one blood pressure monitor with standard size arm cuff 1 Each 04/02/2024 Active Ondansetron HCl 4 MG Oral Tablet Take 1 Tablet by mouth every 8 hours as needed for Nausea. 30 Tablet 05/04/2024 Active Abdominal Binder/Elastic MedIndications:Jejun ostomy tube present ([facility]),Postgastric surgery syndrome Use abdominal binder to hold in feeding tube due to skin irritation 1 Each 05/11/2024 Active Hospital, Clinic, or Other Facility Administered Medication Ordered Dose Route Frequency Start Date End Date Status vitamin b-12 (Cyanocobalamin) inj 1,000 mcgIndications:S/P biliopancreatic diversion with duodenal switch 1000 mcg IM B5TPAOL 02/01/2023 Active Albuterol Sulfate (Proventil) (2.5 MG/3ML) 0.083% inhalation solution 2.5 mgIndications:COPD, group B, by GOLD 2017 classification ([facility]),Moderate persistent asthma without complication 2.5 mg NEBULIZER PRN 05/16/2023 05/15/2024 Acti ve Albuterol Sulfate (Proventil) (5 MG/ML) 0.5% *conc* inhalation solution 2.5 mgIndications:COPD, group B, by GOLD 2017 classification (HCC),Moderate persistent asthma without complication 2.5 mg NEBULIZER PRN 05/16/2023 05/15/2024 Acti ve documented as of this encounter (statuses as of 05/14/2024) Active Problems Problem Noted Date Diagnosed Date [...] Comments) Remote Patient [place] [facility] [place]s): Connected Scale Traditional Pulse Ox Self [...] INCISION; Date; 04/06/04 Original Weight; 275 Hospital; [facility] [place] Surgeon; Dustin Smith MD REVISION; OPEN INCISIONRevision of gastrojejunostomy for gastrogastric fistula, distalization of marquita limb with 150 cm common channel Date; 09/25/15 [facility]; [facility] [place] Surgeon; Dustin Smith MD Repair recurrentincisional or ventral hernia, age 5 years or over; reducible06/09/16 Implantation of mesh or other prosthesis for incisional or ventral hernia repair. documented as of this encounter (statuses as of 05/14/2024) Resolved Problems Problem Noted Date Diagnosed Date [...] as of this encounter (statuses as of 05/14/2024) Immunizations Name Administration Dates Next Due COVID-19 mRNA, LNP-s, No Pre serve, 2-Dose Series (readfy) 08/19/2021,01/01/2021,12/11/2020 COVID-19, MRNA-LNP, 23-24, P F, 30 MCG/0.3 mL, 12 YRS AND ABOVE, IM ([employer]) 03/14/2024,08/08/2023 Covid-19 Ad26, Single Dose ([employer]) 01/01/2021,12/11/2020 Covid-19, Mrna, Lnp-s, Pf, B ivalent, 30 Mcg, IM, 12 yrs and above (readfy) 07/06/2022 Pneumococcal Conjugate Vacc, 13 Valent (Prevnar) [...] encounter Miscellaneous Notes * Telephone Encounter - Sona Baum LPN - 05/14/2024 3:52 PM EDT Order created thru [employer] * Telephone Encounter - Olya Kimble DO - 05/11/2024 12:05 PM EDT Please send order for abdominal binder to [employer]. documented in this encounter Plan of Treatment Upcoming Encounters Date Type Department Care Team (Late st Contact Info) Description 05/18/2024 9:30 AM EDT Office Visit Cardiology, [facility] [address] [facility] [place] [address] Alicia Anand CRNP [address] [place] [address] 05/31/2024 2:30 PM EDT Home Visit [facility] [address] [facility] [place] [address] Bonny Ferrara RN [address] [facility] [place] [address] 06/01/2024 8:40 AM EDT Office Visit Family Practice [address] [facility] [address] [place] [address] Olya Kimble DO [address] [facility] [address] 06/01/2024 9:20 AM EDT Anticoagulation Family Practice [address] [facility] [address] [place] [address] College, Pharmacist [address] [place] [address] 06/19/2024 2:00 PM EDT Nurse Only Ancillary [address] [facility] [address] [place] [address] College, Nurse Annual Wellness Visit [address], [place] [address] 01/03/2025 1:00 PM EDT Office Visit General Surgery, [facility] [address] [place] [address] Terry Link MD [address] [facility] [place] [address] Scheduled Procedures Name Priority Associated Diagnoses Date/Ti me COLONOSCOPY FLEXIBLE PROXIMAL DIAGNOSTIC Recall History of colon polyps Health Maintenance Due Date Last Done Comments Alpha-1 Antitrypsin 1970 Cologuard 1997 Fecal Occult Blood Test 1997 Sigmoidoscopy 1997 *CXR OR CT FOR COPD EVER 04/29/2024 Influenza Vaccine (FLU shot) (#1) 2024 06/23/2023, [...] D LEVEL ONCE IN A LIFETIME-USE SMARTSET# [id number] Completed 02/03/2024, 11/15/2023, 06/13/2023, Additional history exists [...] this encounter Medical Devices Implanted Type Area Certified Nutritionist Device Identifier Shelf Expiration Date Model / Serial / Lot Vitamesh Square 30cm X 30cm - [id number] Implanted:Qty: 1 on 06/09/2016 by Dustin Smith MD at [place] [facility] [place] N/A: Abdomen [employer] 03/16/2021 [id number] / / [id number] documented as of this encounter Advance Directives [...] Agents on File Name Relationship Healthcare Agent [facility] Communication Praful Higgins Spouse Health Care Agent Care Teams Certified Fire Investigator Relationship Specialty Start Date End Date Olya Kimble DO [address] [place] [address] PCP - General Family Medicine 03/29/24 documented as of this encounter
--- OUTSIDE RECORDS SUMMARY | 2024-07-10 03:41 | External Medical Summary | Summary of Care ---
Author Name Unknown Organization [facility] Address [address] [place] [address] Phone [phone] Care Team Providers Care Morning Show Producer Name Role Phone Olya Kimble DO Primary Care Provider [phone] Reason for Visit * Reason Comments Follow Up Encounter Details Date Type Department Care Team (Latest Contact Info) Description 05/18/2024 9:30 AM EDT Office Visit Cardiology, [facility] [address] [facility] [place] [address] Alicia Anadn CRNP [address] [facility] [address] Chronic diastolic heart failure (HCC)*; Permanent atrial fibrillation (HCC); Tachy-corin syndrome (HCC); Cardiac pacemaker in situ; Severe tricuspid regurgitation Allergies Active Allergy Reactions Criticality Noted Date Comments Denosumab High 02/22/2023 SEVERE HYPOCALCEMIA documented as of this encounter (statuses as of 05/18/2024) Medications Medication Sig Dispensed Refills Start Date End Date Status Mag-Oxide 200 MG Oral Tablet (Magnesium Oxide) Take 1 Tablet by mouth in the morning and 1 Tablet before bedtime. 01/14/20 22 Active Lidocaine 4 % External Patch Place 1 Patch topically on the skin daily. Active Dexamethasone Sodium Phosphate 4 MG/ML Injection Solution (Decadron) Inject intravenously 8 mg as needed for Anaphylaxis (severe allergic reaction) (To be administered in the event of anaphylactic reaction per [facility] IV iron anaphylaxis protocol). 2 mL 11 03/10/20 22 Active Acetaminophen 500 MG Oral Tablet (Tylenol) Take 2 Tablets by mouth 3 times a day as needed for Pain, Moderate. 100 Tablet 05/18/20 22 Active Zinc Sulfate 220 (50 Zn) MG Oral CapsuleIndications: Severe protein-calorie malnutrition (HCC),Intestinal postoperative nonabsorption,S/P biliopancreatic diversion with duodenal switch,Vitamin deficiency Take by mouth 1 Capsule in the morning AND 1 Capsule before bedtime. 180 Capsule 06/25/20 22 Active Polyethylene Glycol 3350 17 GM Oral Packet Take 1 Packet by mouth in the morning. Active Syringe Luer Lock 25G X 5/8" 3 ML For vitamin B12 injections 16 Each 2 11/02/19 23 Active Hydrocortisone 2.5 % External OintmentIndications :Contact dermatitis, unspecified contact dermatitis type, unspecified trigger,Atopic dermatitis, unspecified type Apply 2 daily (or more if itchy instead of scratching) to rash on face 454 g 1 12/17/19 23 Active Ferrous Sulfate 325 (65 Fe) MG Oral Tablet Take 1 Tablet by mouth daily with breakfast. Active QC Womens Daily Multivitamin Oral Tablet Take 1 Tablet by mouth in the morning and 1 Tablet before bedtime. Active Albuterol Sulfate 0.63 MG/3ML Inhalation Nebulization Solution (Accuneb)Indication s:Acute hypoxemic respiratory failure (HCC) Inhale 1 Vial via nebulizer every 4 hours as needed for Wheezing. 120 mL 01/26/20 23 Active Compressor NebulizerIndication s:Acute hypoxemic respiratory failure (HCC) Inhale via nebulizer. Use as directed. 1 Each 01/26/20 23 Active DIURETIC TITRATION PLAN If no improvement on day 3, contact heart failure managing provider. 1 Each 02/17/20 23 Active Vitamin C 500 MG Oral Tablet (Ascorbic Acid) Take 1 Tablet by mouth in the morning. Active metOLazone 2.5 MG Oral Tablet (Zaroxolyn) Take 1 Tablet by mouth daily as needed (fluid retention - when directed). 30 Tablet 3 04/04/20 23 Active Triamcinolone Acetonide 0.1 % External Ointment (Aristocort)Indicat ions:Contact dermatitis, unspecified contact dermatitis type, unspecified trigger,Atopic dermatitis, unspecified type Apply 2x daily (or more if itchy instead of scratching) to rash on body 454 g 1 06/16/20 23 Active Fexofenadine HCl 180 MG Oral Tablet (Tiny Allergy) Take 1 Tablet by mouth in the morning. 90 Tablet 3 06/24/20 23 Active Peptamen 1.5 Oral Liquid Administer 4 containers daily , as directed at 40ml/hr continuous J tube feeds, via feeding pump. 70686 mL 11 07/12/20 Active Trolamine Salicylate 10 % External Cream Apply topically to affected area as needed. Apply to affected area Active Albuterol Sulfate HFA 108 (90 Base) MCG/ACT Inhalation Aerosol Solution Inhale 2 Puffs by mouth every 4 hours as needed for Shortness of Breath. 54 g 1 07/21/20 Active Digoxin 125 MCG Oral Tablet (Lanoxin) Take 1 Tablet by mouth in the morning. 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 630mg/12.5mcg. States she takes 3 in the morning and 3 in the evening. . Active Venlafaxine HCl 100 MG Oral Tablet (Effexor) Take 1 and 1/2 Tablets by mouth in the morning and before bedtime. 270 Tablet 3 11/28/19 24 Active Additional Information Patient taking differently: (No dose reported), (No route reported), (No frequency reported), Reported on 02/29/2024 Levothyroxine Sodium 50 MCG Oral Tablet (Levoxyl) take one tablet by mouth daily 90 Tablet 3 12/23/19 24 Active Torsemide 20 MG Oral Tablet (Demadex)Indication s:Chronic diastolic heart failure (HCC) TAKE TWO TABLETS BY MOUTH IN THE MORNING 180 Tablet 3 12/28/19 24 025 Active Calcitriol 0.25 MCG Oral Capsule (Rocaltrol)Indicati ons:Hypocalcemia Take 2 Capsules by mouth in the morning and 2 Capsules before bedtime. 400 Capsule 2 12/30/19 24 Active Spironolactone 25 MG Oral Tablet (Aldactone)Indicati ons:Chronic diastolic heart failure (HCC) Take one-half tablet by mouth in the morning. 45 Tablet 3 01/11/20 24 Active Omeprazole 20 MG Oral Capsule Delayed Release (PriLOSEC)Indicatio ns:Gastro-esophagea l reflux disease without esophagitis Take 1 Capsule by mouth in the morning. 100 Capsule 3 02/24/20 24 Active Montelukast Sodium 10 MG Oral Tablet (Singulair) Take 1 Tablet by mouth at bedtime. 100 Tablet 3 03/01/20 24 Active Blood Pressure MonitorIndications: Lightheadedness,Per sistent atrial fibrillation (HCC),Tachy-corin syndrome (HCC),Hypertensive heart disease with chronic diastolic congestive heart failure (HCC) Provide one blood pressure monitor with standard size arm cuff 1 Each 04/02/20 24 Active Ondansetron HCl 4 MG Oral Tablet Take 1 Tablet by mouth every 8 hours as needed for Nausea. 30 Tablet 05/04/20 24 Active Abdominal Binder/Elastic MedIndications:Jeju nostomy tube present (HCC),Postgastric surgery syndrome Use abdominal binder to hold in feeding tube due to skin irritation 1 Each 05/11/20 24 Active Metoprolol Succinate ER 25 MG Oral Tablet Extended Release 24 Hour (toPROL XL)Indications:Perm anent atrial fibrillation (HCC) Take 1.5 tablets in the morning and 1.5 tablets in the evening. 200 Tablet 3 05/18/20 24 Active Metoprolol Succinate ER 25 MG Oral Tablet Extended Release 24 Hour (toPROL XL)Indications:Perm anent atrial fibrillation (HCC) Take 1 tablet in the morning and 1.5 tablets in the evening. 200 Tablet 3 11/02/19 24 024 Discontinued Hospital, Clinic, or Other Facility Administered Medication Ordered Dose Route Frequency Start Date End Date Status vitamin b-12 (Cyanocobalamin) inj 1,000 mcgIndications:S/P biliopancreatic diversion with duodenal switch 1000 mcg IM [id number] 02/01/2023 Acti ve documented as of this encounter (statuses as of 05/18/2024) Active Problems Problem Noted Date Diagnosed Date [...] in the Comments) Remote Patient Monitoring Vendor: [facility] Device(s): Connected Scale Traditional Pulse Ox Self [...] INCISION; Date; 04/06/04 Original Weight; 275 [facility]; [facility] [place]geon; Dustin Smith MD REVISION; OPEN INCISIONRevision of gastrojejunostomy for gastrogastric fistula, distalization of marquita limb with 150 cm common channel Date; 09/25/15 [facility]; [facility] Surgeon; Dustin Smith MD Repair recurrentincisional or ventral hernia, age 5 years or over; reducible06/09/16 Implantation of mesh or other prosthesis for incisional or ventral hernia repair. documented as of this encounter (statuses as of 05/18/2024) Resolved Problems Problem Noted Date Diagnosed Date [...] as of this encounter (statuses as of 05/18/2024) Immunizations Name Administration Dates Next Due COVID-19 mRNA, LNP-s, No Pre serve, 2-Dose Series ([employer]) 08/19/2021,01/01/2021,12/11/2020 COVID-19, MRNA-LNP, 23-24, P F, 30 MCG/0.3 mL, 12 YRS AND ABOVE, IM ([employer]) 03/14/2024,08/08/2023 Covid-19 Ad26, Single Dose ([employer]) 01/01/2021,12/11/2020 Covid-19, Mrna, Lnp-s, Pf, B ivalent, 30 Mcg, IM, 12 yrs and above ([employer]) 07/06/2022 Pneumococcal Conjugate Vacc, 13 Valent (Prevnar) [...] Current Smokeless Tobacco: Never Tobacco Cessation:Counseling Given: Not Answered Comments:second hand smoke Alcohol Use Standard Drinks/Week [...] Sign Reading Time Taken Comments Blood Pressure 112/70 05/18/2024 9:25 AM EDT Pulse 70 05/18/2024 9:25 AM EDT Temperature - - Respiratory Rate - - Oxygen Saturation - - Inhaled Oxygen Concentration - - Weight 47.6 kg (105 lb) 05/18/2024 9:25 AM EDT Height - - Body Mass Index 21.95 05/11/2024 9:55 AM EDT documented in this [...] as of this encounter Progress Notes * Alicia Anand CRNP - 05/18/2024 9:30 AM EDT Cardiology Outpatient Visit 05/18/2024 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 TR classified as moderate on echo at [facility] 07/2021. 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 Was last evaluated by the undersigned approximately 6 months ago. Most recent device check dated 03/2024 showed a 100% AFib burden, known. She was having worsening palpitations. Metoprolol succinate was increased to 37.5 mg twice daily. Today the patient presents feeling well and offers no acute concerns. Has an ongoing "humming" sensation for the past several months in her chest when she lays on her left side-- notes that it feels like her pacemaker moved. Will be having a CXR completed following today's appt by her PCP. No exertional chest pain. Shortness of breath at baseline. No lightheadedness/dizziness, syncope or near syncope. No orthopnea, PND, or increased lower extremity edema. No fever, chills, cough, hematochezia, melena, or hemoptysis. Most recent echocardiogram dated 10/2022 showed a preserved LV systolic function of 55-59%. Left and right atrium severely dilated, known. Mild AI and mild MR. Moderate TR. No pulmonary hypertension. She states she is compliant with all medications and offers no side effects. Current Outpatient Medications Medication Sig Dispense Refill [...] as needed for Wheezing. 120 mL 1 Compressor Nebulizer Inhale via nebulizer. Use as directed. 1 Each 1 DIURETIC TITRATION PLAN If no improvement on day 3, contact heart failure managing provider. 1 Each0 Vitamin C 500 MG Oral Tablet (Ascorbic [...] continuous J tube feeds, via feeding pump. 80305 mL 11 Trolamine Salicylate 10 % External [...] by mouth at bedtime. 100 Tablet 3 Blood Pressure Monitor Provide one blood pressure monitor with standard size arm cuff 1 Each 0 Ondansetron HCl 4 MG Oral Tablet Take 1 Tablet by mouth every 8 hours as needed for Nausea. 30 Tablet 0 Abdominal Binder/Elastic Med Use abdominal binder to hold in feeding tube due to skin irritation 1 Each 0 Metoprolol Succinate ER 25 MG Oral Tablet Extended Release 24 Hour (toPROL XL) Take 1.5 tablets in the morning and 1.5 tablets in the evening. 200 Tablet 3 Current Facility-Administered Medications Medication Dose Route Frequency Provider Last Rate Last Admin vitamin b-12 (Cyanocobalamin) inj 1,000 mcg 1,000 mcg Intramuscular Q4 Weeks Benito Lorenzo DO 1,000 mcg at 05/11/24 1030 Past Medical History: Diagnosis Date Allergic rhinitis [...] 2004 2004 - abd hernia done [place] [facility] COLONOSCOPY 05/23/2002 normal screening colo COLONOSCOPY THRU STOMA, W/BIOPSY 07/2009 adenomatous tissue bx, f/u in 3 yrs COLONOSCOPY, DIAGNOSTIC (RECTUM) 09/18/2013 COLONOSCOPY FLEXIBLE PROXIMAL DIAGNOSTIC performed by Manjula Bryson MD at [facility] COLONOSCOPY, DIAGNOSTIC (RECTUM) 03/22/2016 adenomatous polyp, poor prep, repeat 6 mo/[facility] COLONOSCOPY, DIAGNOSTIC (RECTUM) 11/13/2021 adenomatous polyp, repeat 5 yrs / [facility] DEXA SCAN/BONE MINERAL AXIAL 2016 repeat 5 years, 2021 EGD, FLEXIBLE, DIAGNOSTIC 03/22/2016 normal bx/[facility] EGD, FLEXIBLE, DIAGNOSTIC 09/14/2016 hyperplastic polyps, repeat 5 yrs/[facility] EGD, FLEXIBLE, DIAGNOSTIC N/A 08/11/2021 biopsies show mild inflammation of esophagus/EGD/[facility] EGD, FLEXIBLE, DIAGNOSTIC 06/18/2022 normal bx / [facility] GASTRIC BYPASS FOR OBESITY 2003 IMPLANT MESH W/ ABD HERNIA REPR/DEBRIDE N/A 06/09/2016 IMPLANTATION MESH WITH INCISIONAL/VENTRAL HERNIA performed by Dustin Smith MD at [place] [facility] INJECT DX/THER SUBSTANCE INTERLAMINAR LUMBAR/SACRAL W IMAGE GUIDE 05/26/2022 INJECTION SPINE LUMBAR OR SACRAL performed by Refugio Noriega DO at [facility] INSERT/REPLACE PACEMAKER,ATRIAL/VENTRICULAR 10/24/2018 IR TUBE REPLACEMENT GASTROSTOMY PERCUTANEOUS OR CECOSTOMY Left 12/30/2023 PERCUTANEOUS REPLACE GASTROSTOMY OR CECOSTOMY TUBE WITH FLUORO performed by Flynn Mesa MD at [facility] JEJUNOSTOMY, LAPAROSCOPIC N/A 08/31/2022 LAPAROSCOPIC ILEOSTOMY OR JEJUNOSTOMY performed by Terry Link MD at [facility] JEJUNOSTOMY, LAPAROSCOPIC N/A 07/01/2023 LAPAROSCOPIC ILEOSTOMY OR JEJUNOSTOMY performed by Terry Link MD at [facility] LIGATE/CUT OVIDUCT(S) AT SURGERY REMOVAL OF APPENDIX 1969 REMOVAL OF SMALL INTESTINE W/FUSION N/A 09/25/2015 ENTERECTOMY SMALL BOWEL RESECTION performed by Dustin Smith MD at [facility] REMOVE GALLBLADDER REMOVE STOMACH, PARTIAL N/A 09/25/2015 GASTRECTOMY PARTIAL WITH GASTROJEJUNOSTOMY performed by Dustin Smith MD at [facility] REPAIR INITIAL INCISIONAL OR VENTRAL HERNIA; REDUCIBLE N/A 09/25/2015 REPAIR INITIAL INCISIONAL /VENTRAL HERNIA REDUCIBLE performed by Dustin Smith MD at [facility] REPAIR INITIAL INCISIONAL OR VENTRAL HERNIA; REDUCIBLE N/A 06/09/2016 REPAIR INITIAL INCISIONAL /VENTRAL HERNIA REDUCIBLE performed by Dustin Smith MD at [facility] SACROILIAC JOINT INJECT W/GUIDANCE 02/23/2023 INJECTION SACROILIAC JOINT performed by Refugio Noriega DO at OR [facility] TREATMENT OF INCOMPLETE Social History Tobacco Use Smoking status: Never Passive exposure: Current Smokeless tobacco: Never Tobacco comments: second hand smoke Vaping Use Vaping status: Never Used Substance Use Topics Alcohol use: No Drug use: No Review of patient's allergies indicates: Allergen Reactions Prolia [Denosumab] SEVERE HYPOCALCEMIA Review of Systems: See HPI for pertinent positives. All others negative, other than those noted in HPI. Physical Exam BP 112/70 | Pulse 70 | Wt 47.6 kg (105 lb) | LMP 10/03/2006 | BMI 21.95 kg/m | BSA 1.4 m General: No acute distress. A+Ox3. + Tremor HEENT: Normocephalic. Atraumatic. Conjunctiva and sclera clear. NECK: No carotid bruits. No JVD. Carotid upstrokes are brisk. Heart: Regular rate, irregular rhythm. S1 and S2 noted. +murmur Lungs: Diminished lung sounds. Clear to auscultation. Abdomen: Normal bowel sounds. Soft. Nontender. No masses or organomegaly. Extremities: No edema. Compression socks in place. Bilateral varicose veins. Pulses: radial=2/4, posterior tibial=2/4, dorsalis pedis = 2/4. NEURO: No focal deficits. PSYCH: Normal. Lab data/imaging study review: Echo 10/2022 The examination is adequate to evaluate the referral indication. The qualitative LV ejection fraction is 55-59% (normal). The left ventricular cavity size is normal. The LV wall thickness is normal. The right ventricular systolic function is normal as assessed by tricuspid annular plane systolic excursion (TAPSE) (normal >1.7 cm). The left atrium is severely enlarged (>48 ml/m^2,). The right atrium is severely enlarged. The left ventricular diastolic function is mildly abnormal (grade I). Mild aortic valve regurgitation is present. Mild mitral regurgitation is present. Moderate tricuspid regurgitation is present. Normal IVC size and collapsability with sniff indicates a normal right atrial pressure of 3 mmHg. There is no evidence of pulmonary hypertension. Echo 02/23/2022 at [facility] LVEF 60-65% with moderate concentric LVH Abnormal septal/apical wall motion consistent with pacemaker activation otherwise normal wall motion RV cavity size is normal, systolic function mildly reduced Grade 2 diastolic dysfunction Moderate TR Moderate biatrial enlargement Echo 08/07/2021 LVEF 60-65% with moderate LVH Abnormal apical wall motion consistent with RV pacing Grade 2 diastolic dysfunction Moderate tricuspid regurgitation Pulmonary hypertension is not present Moderate left atrial enlargement Echo 03/28/2021 [facility] LVEF 60-65% with apical wall motion abnormality that may reflect pacemaker activation No regional wall motion abnormalities Left atrium moderately dilated Right atrium mildly dilated Moderate concentric LVH Pacemaker lead in the right ventricle Severe TR Right ventricular systolic pressure 30-40 mmHg Impression/Plan: This is a(n) 73 year old female who is being evaluated in the cardiology office for ongoing care/risk management for the below diagnoses. 1. Chronic diastolic CHF -Chronic diastolic CHF, NYHA class 3-4. -Euvolemic on exam 1. Continue torsemide 40 mg daily and spironolactone 12.5 mg daily. 2. Follow a low-sodium diet (less than 2g/2000mg daily). Continue daily weights- weigh first thing in the morning after using the bathroom. Should weight increase 3 pounds in 1 day or 5 pounds in 1 week, notify cardiology. DTP on chart. 2. Permanent atrial fibrillation (HCC) [id number] score of 3 (female, age, CHF) 1. Continue Coumadin, INR goal between 2-3 2. Continue metoprolol succinate and digoxin digoxin as ordered. Most recent dig level stable 3. Tachy-corin syndrome 4. 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 CXR following appt 5. Tricuspid regurgitation -Per Dr. Ivey is last note she felt that her RV lead could be contributing to her tricuspid regurgitation, however consideration of upgrade to Bi V could potentially cause more risk/harm than benefit. Will continue to treat conservatively. The patient agrees to the above plan and will call with additional questions or concerns. ER with all emergencies advised. Follow-up: Return in about 6 months (around 11/18/2024). | Check-out note: Send patient for CXR. I spent a total of 30 minutes on the date of service in preparation, delivery, and documentation ofthe care provided to Andra Higgins excluding any time spent in the performance of separatelybilled services. SONA Kline, Department of Cardiology This chart was completed in part utilizing [employer] Voice Recognition Software. Grammatical errors, random word insertions, prounoun errors, and incomplete sentences are an occasional consequence of this system due to software limitations, ambient noise, and hardware issues. Any formal questions or concerns about the content, text, or information contained within the body of this dictation should be directly addressed to the provider for clarification. documented in this encounter Nursing Notes * Miya Bradford CMA - 05/18/2024 9:24 AM EDT Examination Room: 1 Name: Andra Higgins Date of : (1950) Reason for Visit: 6m Interim Hospitalization(s): none Problems/Concerns: denied Chest Pain/SOB: denied chest pain, but does have SOB. My [facility] is a way you can talk to your provider online through e-mail. Would you like to sign up? I can activate it for you? ALREADY ACTIVE Patient was instructed to not get up on the exam table until directed and assisted by their provider; patient is to remain seated in the chair/ wheelchair/ exam table for fall prevention and safety reasons. Patient is aware to have assistance to step down off exam table with personnel. Patient voiced full comprehension of instructions. documented in this encounter Plan of Treatment Upcoming Encounters Date Type Department Care Team (Late st Contact Info) Description 05/18/2024 10:00 AM EDT Imaging Radiology [address] [place] [id number] Cardiac pacemaker in situ 05/31/2024 2:30 PM EDT Home Visit [facility], [facility] [address] [place] [address] Bonny Ferrara RN [address] [place] [address] 06/01/2024 8:40 AM EDT Office Visit Family Practice [address] [facility] [address] [facility], [place] [phone] Olya Kimble, DO [address] [facility], [place] [address] 06/01/2024 9:20 AM EDT Anticoagulation Family Practice [address] [facility] [address] [place] [address] College, Pharmacist [address] [place] [address] 06/19/2024 2:00 PM EDT Nurse Only Ancillary [address] [facility] [address] [facility], [place] [address] College, Nurse Annual Wellness Visit [address], [place] [address] 11/30/2024 11:30 AM EST Office Visit Cardiology, [facility] [address] [place] [address] Tejas Haskins, DO [address] [place] [address] 01/03/2025 1:00 PM EDT Office Visit General Surgery, [facility] [address] [place] [address] Terry Link MD [address] [place] [address] Scheduled Procedures Name Priority Associated Diagnoses Date/Ti me COLONOSCOPY FLEXIBLE PROXIMAL DIAGNOSTIC Recall History of colon polyps Health Maintenance Due Date Last Done Comments Alpha-1 Antitrypsin 1970 Cologuard 1997 Fecal Occult Blood Test 1997 Sigmoidoscopy 1997 Influenza Vaccine (FLU shot) (#1) 2024 06/23/2023, [...] 07/08/2018, 07/08/2018, 08/20/2008 Lipid Panel 11/15/2028 11/15/2023, 0 02/2023, 06/14/2022, Additional history exists Pneumococcal Vaccine: 65+ Years Completed 08/14/2020, 09/11/2018, 08/15/2017, Additional history exists RETIRED - COLONOSCOPY-EVERY 5 YRS AGES 18-100 Discontinued 11/13/2021, 09/14/2016, 03/22/2016, Additional history exists Zoster Vaccines Completed 08/11/2022, 05/17, 08/21/2013 VITAMIN D LEVEL ONCE IN A LIFETIME-USE SMARTSET# [id number] Completed 02/03/2024, 11/15/2023, 06/13/2023, Additional history exists [...] this encounter Medical Devices Implanted Type Area Senior Net Programmer Device Identifier Shelf Expiration Date Model / Serial / Lot Vitamesh Square 30cm X 30cm - [id number] Implanted:Qty: 1 on 06/09/2016 by Dustin Smith MD [place] [facility] N/A: Abdomen [employer] 03/16/2021 [id number] / / [id number] documented as of this encounter Visit Diagnoses Diagnosis Chronic diastolic heart failure (HCC)- Primary Chronic diastolic heart failure Permanent atrial fibrillation (HCC) Atrial fibrillation Tachy-corin syndrome (HCC) Sinoatrial node dysfunction Cardiac pacemaker in situ Severe tricuspid regurgitation Diseases of tricuspid valve Cardiac pacemaker in situ documented in this encounter Advance Directives * [...] Agents on File Name Relationship Healthcare Agent [facility] Communication Praful Higgins Spouse Health Care Agent Care Teams Morning Show Producer Relationship Specialty Start Date End Date Olya Kimble DO [address] [facility] [place] [address] PCP - General Family Medicine 03/29/24 documented as of this encounter
--- OUTSIDE RECORDS SUMMARY | 2024-07-10 03:42 | External Medical Summary | Summary of Care ---
Author Name Unknown Organization [facility] Address [address] [place] [address] Phone [phone] Care Team Providers Care Senior Network Security Architect Name Role Phone Olya Lara DO Primary Care Provider Reason for Visit * Reason Onset Date Comments Medication Refill 05/04/2024 Encounter Details Date Type Department Care Team (Late st Contact Info) Description 05/04/2024 Refill Family Practice [address] [place] [address] [place] [phone] Olya Lara DO [address] [place], [place] [id number] Allergies Active Allergy Reactions Criticality Noted Date Comments Denosumab High 02/22/2023 SEVERE HYPOCALCEMIA documented as of this encounter (statuses as of 05/04/2024) Medications Medication Sig Dispensed Refills Start Date [...] the morning. 90 Tablet 3 3 Active Peptamen 1.5 Oral Liquid Administer 4 containers daily , as directed at 40ml/hr continuous J tube feeds, via feeding pump. 06579 mL 11 3 Active Trolamine Salicylate 10 % External [...] the evening. 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 30 Tablet 4 Active Ondansetron HCl 4 MG Oral Tablet Take 1 Tablet by mouth every 8 hours as needed for Nausea. 30 Tablet 4 05/04/20 24 Discontinu ed(Refill) Hospital, Clinic, or Other Facility Administered Medication Ordered Dose Route Frequency Start Date End Date Status vitamin b-12 (Cyanocobalamin) inj 1,000 mcgIndications:S/P biliopancreatic diversion with duodenal switch 1000 mcg IM [id number] 02/01/2023 Active Albuterol Sulfate (Proventil) (2.5 MG/3ML) 0.083% inhalation solution 2.5 mgIndications:COPD, group B, by GOLD 2017 classification ([facility]),Moderate persistent asthma without complication 2.5 mg NEBULIZER PRN 05/16/2023 05/15/2024 Acti ve Albuterol Sulfate (Proventil) (5 MG/ML) 0.5% *conc* inhalation solution 2.5 mgIndications:COPD, group B, by GOLD 2017 classification (HCC),Moderate persistent asthma without complication 2.5 mg NEBULIZER PRN 05/16/2023 05/15/2024 Acti ve documented as of this encounter (statuses as of 05/04/2024) Active Problems Problem Noted Date Diagnosed Date [...] in the Comments) Remote Patient Monitoring Vendor: [facility] Device(s): Connected Scale Traditional Pulse [...] INCISION; Date; 04/06/04 Original Weight; 275 Hospital; [facility] Surgeon; Dustin Smith MD REVISION; OPEN INCISIONRevision of gastrojejunostomy for gastrogastric fistula, distalization of marquita limb with 150 cm common channel Date; 09/25/15 [facility]; [facility] Surgeon; Dustin Smith MD Repair recurrentincisional or ventral hernia, age 5 years or over; reducible06/09/16 Implantation of mesh or other prosthesis for incisional or ventral hernia repair. documented as of this encounter (statuses as of 05/04/2024) Resolved Problems Problem Noted Date Diagnosed Date [...] as of this encounter (statuses as of 05/04/2024) Immunizations Name Administration Dates Next Due COVID-19 mRNA, LNP-s, No Pre serve, 2-Dose Series ([employer]) 08/19/2021,01/01/2021,12/11/2020 COVID-19, MRNA-LNP, 23-24, P F, 30 MCG/0.3 mL, 12 YRS AND ABOVE, IM ([employer]) 03/14/2024,08/08/2023 Covid-19 Ad26, Single Dose ([employer]) 01/01/2021,12/11/2020 Covid-19, Mrna, Lnp-s, Pf, B ivalent, 30 Mcg, IM, 12 yrs and above ([employer]) 07/06/2022 Pneumococcal Conjugate Vacc, 13 Valent (Prevnar) [...] encounter Miscellaneous Notes * Telephone Encounter - Olya Lara DO - 05/04/2024 3:50 PM EDTSigned Prescriptions: Disp Refills Ondansetron HCl 4 MG Oral Tablet 30 Tab*0 Sig: Take 1 Tablet by mouth every 8 hours as needed for Nausea. Authorizing Provider: OLYA LARA * Telephone Encounter - Deniz Liu [facility] - 05/04/2024 3:10 PM EDT Pending Prescriptions: Disp Refills Ondansetron HCl 4 MG Oral Tablet 30 Tab*0 Sig: Take 1 Tablet bymouth every 8 hours as needed for Nausea. documented in this encounter Plan of Treatment Upcoming Encounters Date Type Department Care Team (Late st Contact Info) Description 05/11/2024 9:30 AM EDT Anticoagulation Family Practice [address] [place] [address] [address] [place] [address] College, Pharmacist [address] [place] [address] 05/11/2024 10:00 AM EDT Office Visit Family Practice [address] [facility] [address] [place] [address] Olya Lara DO 293 [facility] [address] 05/18/2024 9:30 AM EDT Office Visit Cardiology, [facility] [address] [place] [address] Alicia Anand CRNP [address] [place] [place] [address] 05/31/2024 2:30 PM EDT Home Visit [facility], [facility] [address] [place] [address] Bonny Ferrara, RN [address] [place] [address] 06/19/2024 2:00 PM EDT Nurse Only Ancillary [address] [facility] [address] [place] [address] College, Nurse Annual Wellness Visit 65 [facility] 293 [place] [address] 01/03/2025 1:00 PM EDT Office Visit General [facility], [facility] [place] [address] Terry Link MD [address] [place] [address] Scheduled Procedures Name Priority Associated Diagnoses Date/Ti [...] D LEVEL ONCE IN A LIFETIME-USE SMARTSET# [id number] Completed 02/03/2024, 11/15/2023, 06/13/2023, Additional history exists [...] this encounter Medical Devices Implanted Type Area Shaker Repairer Device Identifier Shelf Expiration Date Model / Serial / Lot [facility] Square 30cm X 30cm - [id number] Implanted:Qty: 1 on 06/09/2016 by Dustin Smith MD at OR [facility] N/A: Abdomen [employer] 03/16/2021 [id number] / / [id number] documented as of this encounter Advance Directives [...] Higgins Spouse Health Care Agent Care Teams Senior Network Security Architect Relationship Specialty Start Date End Date Olya Lara DO [address] [place] [address] PCP - General Family Medicine 03/29/24 documented as of this encounter
--- OUTSIDE RECORDS SUMMARY | 2024-07-10 03:42 | External Medical Summary | Summary of Care ---
Author Name Unknown Organization [facility] Address [address] [place] [address] Phone [phone] Care Team Providers Care Master In Chancery Name Role Phone Olya Kimble DO Primary Care Provider [phone] Reason for Visit * Reason Comments Dosage Adjustment In Person (Anticoag Cl inic) Encounter Details Date Type Department Care Team (Late st Contact Info) Description 05/11/2024 9:50 AM EDT Anticoagulation Family Practice 65 [facility] [address] [place] [address] [place], Pharmacist [address] [address] Anticoagulation management encounter*; Persistent atrial fibrillation (HCC) Allergies Active Allergy Reactions Criticality Noted Date Comments Denosumab High 02/22/2023 SEVERE HYPOCALCEMIA documented as of this encounter (statuses as of 05/11/2024) Medications Medication Sig Dispensed Refills Start Date [...] continuous J tube feeds, via feeding pump. 95677 mL 11 07/12/2023 Active Trolamine Salicylate 10 [...] 2.5 MG Oral Tablet (Coumadin)Indication s:Anticoagulation management encounter,jail current use of anticoagulant therapy,Permanent atrial fibrillation [...] needed for Nausea. 30 Tablet 05/04/2024 Active Hospital, Clinic, or Other Facility Administered Medication Ordered Dose Route Frequency Start Date End Date Status vitamin b-12 (Cyanocobalamin) inj 1,000 mcgIndications:S/P biliopancreatic diversion with duodenal switch 1000 mcg IM [id number] 02/01/2023 Active Albuterol Sulfate (Proventil) (2.5 MG/3ML) 0.083% inhalation solution 2.5 mgIndications:COPD, group B, by GOLD 2017 classification ([facility]),Moderate persistent asthma without complication 2.5 mg NEBULIZER PRN 05/16/2023 05/15/2024 Acti ve Albuterol Sulfate (Proventil) (5 MG/ML) 0.5% *conc* inhalation solution 2.5 mgIndications:COPD, group B, by GOLD 2017 classification ([facility]),Moderate persistent asthma without complication 2.5 mg NEBULIZER PRN 05/16/2023 05/15/2024 Acti ve documented as of this encounter (statuses as of 05/11/2024) Active Problems Problem Noted Date Diagnosed Date [...] in the Comments) Remote Patient Monitoring Vendor: [facility] Device(s): Connected Scale Traditional [...] OPEN INCISION; Date; 04/06/04 Original Weight; 275 [facility]; [facility] Surgeon; Dustin Smith MD REVISION; OPEN INCISIONRevision of gastrojejunostomy for gastrogastric fistula, distalization of marquita limb with 150 cm common channel Date; 09/25/15 [facility]; [facility] Surgeon; Dustin Smith MD Repair recurrentincisional or ventral hernia, age 5 years or over; reducible06/09/16 Implantation of mesh or other prosthesis for incisional or ventral hernia repair. documented as of this encounter (statuses as of 05/11/2024) Resolved Problems Problem Noted Date Diagnosed Date [...] as of this encounter (statuses as of 05/11/2024) Immunizations Name Administration Dates Next Due COVID-19 mRNA, LNP-s, No Pre serve, 2-Dose Series ([employer]) 08/19/2021,01/01/2021,12/11/2020 COVID-19, MRNA-LNP, 23-24, P F, 30 MCG/0.3 mL, 12 YRS AND ABOVE, IM ([employer]) 03/14/2024,08/08/2023 Covid-19 Ad26, Single Dose ([employer]) 01/01/2021,12/11/2020 Covid-19, Mrna, Lnp-s, Pf, B ivalent, 30 Mcg, IM, 12 yrs and above ([employer]) 07/06/2022 Pneumococcal Conjugate Vacc, 13 Valent [...] as of this encounter Progress Notes * Sobeida Bo, [facility] - 05/11/2024 10:05 AM EDT Images from the original note were not included. Medication Therapy Disease Management - Anticoagulation Patient: Andra Higgins | : 1950 Subjective Patient-Reported Symptoms: Objective Current Warfarin Dose As of 05/11/2024 Warfarin maintenance plan: 7.5 mg (2.5 mg x 3) every Mon, Wed, Fri; 5 mg (2.5 mg x 2) all other days INR Result As of 05/11/2024 INR goal: 2.0-3.0 INR used for dosin.5 (05/11/2024) Assessment & Plan Warfarin Plan As of 05/11/2024 Full warfarin instructions: 7.5 mg every Mon, Wed, Fri; 5 mg all other days No change documented: Sobeida Bo ludivina Next INR check: 05/25/2024 Repeat PT/INR in 2 week(s) Weekly dose: not changed Additional Dosing Information: Description Splits warfarin in morning and evening 08/31/22 - surgery for feeding tube - on Peptamen 1.5 at 65 ml/hr. 01/28/23 - tube feed stopped 02/08/23 - tube feeds restarted at 70 ml/hr 06/22/23 - tube fell out. Tube not to be reinserted until 07/06. Warfarin 2.5mg while off feeds 07/02/23 - tube feeds restarted at 40ml/hr 07/15/23 - patient reports feeds back to 65 ml/hr Sobeida Porter [facility] Clinical Pharmacist 05/11/2024, 10:06 AM documented in this encounter Plan of Treatment Upcoming Encounters Date Type Department Care Team (Late st Contact Info) Description 05/18/2024 9:30 AM EDT Office Visit Cardiology, [facility] [address] [place] [address] Alicia Anand CRNP [address] [place] [address] 05/31/2024 2:30 PM EDT Home Visit [facility] [address] [place] [address] Bonny Ferrara RN [address] [place] [address] 06/01/2024 8:40 AM EDT Office Visit Family Practice 65 [facility] 293 [facility] [place] [phone] Olya Kimble, DO [address] [place] [address] 06/01/2024 9:20 AM EDT Anticoagulation Family Practice 65 [facility] [address] [place] [phone] College, Pharmacist [address] [address] 06/19/2024 2:00 PM EDT Nurse Only Ancillary 65 [facility] [address] [place] [address] College, Nurse Annual Wellness Visit [address] [address] 01/03/2025 1:00 PM EDT Office Visit General Surgery, [facility] [address] [facility] [place] [address] Terry Link MD [address] [place] [address] Scheduled Procedures Name Priority Associated [...] D LEVEL ONCE IN A LIFETIME-USE SMARTSET# [id number] Completed 02/03/2024, 11/15/2023, 06/13/2023, Additional history exists [...] this encounter Medical Devices Implanted Type Area Clinical Training Coordinator Device Identifier Shelf Expiration Date Model / Serial / Lot [facility] Square 30cm X 30cm - [id number] Implanted:Qty: 1 on 06/09/2016 by Dustin Smith MD at [place] [facility] N/A: Abdomen [employer] 03/16/2021 [id number] / / [id number] documented as of this encounter Procedures Procedure Name Priority Date/Time Associated Diagnosis Comments INR FINGERSTICK, POINT OF CARE STAT 05/11/2024 10:07 AM EDT Persistent atrial fibrillation (HCC) Anticoagulation management encounter documented in this encounter Results * INR FINGERSTICK, POINT OF CARE (05/11/2024 10:07 AM EDT) Fingerstick INR 1.5 INR 11:11 AM EDT [place] [address] Blood 05/11/2024 10:0 7 AM EDT 05/11/2024 11:11 AM EDT [facility] 56-21 - 05/11/2024 11:11 AM EDT Therapeutic ranges for non-operative patients: Prophylaxsis/treatment of DVT: (Range:2.0-3.0) Treatment of pulmonary embolism:(Range:2.0-3.0) Prevention of systemic embolism from: -tissue heart valves -acute myocardial infarction -valvular heart disease -atrial fibrillation (Range: 2.0-3.0) Mechanical prosthetic valves: (Range: 2.5-3.5) Sobeida Lyon [facility] LAB PO INT OF CARE TEST DOCKED DEVICE UNSOLICITED RESULTS Performing Organization Address City/State/[facility] Co de Phone Number [place] [address] [address] [place] [address] documented in this encounter Visit Diagnoses Diagnosis Anticoagulation management encounter- Primary Encounter for therapeutic drug monitoring Persistent atrial fibrillation (HCC) Atrial fibrillation documented in this encounter Advance Directives * [...] Agents on File Name Relationship Healthcare Agent [facility] Communication Praful Higgins Spouse Health Care Agent Care Teams Master In Chancery Relationship Specialty Start Date End Date Olya Kimble DO [address] [place] [address] PCP - General Family Medicine 03/29/24 documented as of this encounter
--- OUTSIDE RECORDS SUMMARY | 2024-07-10 03:42 | External Medical Summary | Summary of Care ---
Author Name Unknown Organization [facility] Address [address] [place] [address] Phone [phone] Care Team Providers Care Cement Truck Driver Name Role Phone Xenadebra Olya Palencia DO Primary Care Provider [phone] Reason for Visit * Reason Comments [facility]: Maintenance Encounter Details Date Type Department Care Team (Late st Contact Info) Description 04/30/2024 5:30 PM EDT Home Visit [facility], [facility] [address] [employer] [facility] [place] [address] Bonny Ferrara, RN [address] [facility] [address] Allergies Active Allergy Reactions Criticality Noted Date Comments Denosumab High 02/22/2023 SEVERE HYPOCALCEMIA documented as of this encounter (statuses as of 05/01/2024) Medications Medication Sig Dispensed Refills Start Date [...] continuous J tube feeds, via feeding pump. 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 45 Tablet 3 01/11/2024 Active Ondansetron HCl 4 MG Oral Tablet Take 1 Tablet by mouth every 8 hours as needed for Nausea. 30 Tablet 02/22/2024 Active Omeprazole 20 MG Oral Capsule Delayed [...] size arm cuff 1 Each 04/02/2024 Active Hospital, Clinic, or Other Facility Administered Medication Ordered Dose Route Frequency Start Date End Date Status vitamin b-12 (Cyanocobalamin) inj 1,000 mcgIndications:S/P biliopancreatic diversion with duodenal switch 1000 mcg IM [id number] 02/01/2023 Active Albuterol Sulfate (Proventil) (2.5 MG/3ML) [...] as of this encounter (statuses as of 05/01/2024) Active Problems Problem Noted Date Diagnosed Date [...] in the Comments) Remote Patient Monitoring Vendor: [employer] Device(s): Connected Scale Traditional Pulse Ox Self [...] OPEN INCISION; Date; 04/06/04 Original Weight; 275 [facility]; [facility] Surgeon; Dustin Smith MD REVISION; OPEN INCISIONRevision of gastrojejunostomy for gastrogastric fistula, distalization of marquita limb with 150 cm common channel Date; 09/25/15 [facility]; [facility] Surgeon; Dustin Smith MD Repair recurrentincisional or ventral hernia, age 5 years or over; reducible06/09/16 Implantation of mesh or other prosthesis for incisional or ventral hernia repair. documented as of this encounter (statuses as of 05/01/2024) Resolved Problems Problem Noted Date Diagnosed Date [...] as of this encounter (statuses as of 05/01/2024) Immunizations Name Administration Dates Next Due COVID-19 mRNA, LNP-s, No Pre serve, 2-Dose Series ([employer]) 08/19/2021,01/01/2021,12/11/2020 COVID-19, MRNA-LNP, 23-24, P F, 30 MCG/0.3 mL, 12 YRS AND ABOVE, IM ([employer]) 03/14/2024,08/08/2023 Covid-19 Ad26, Single Dose ([employer]) 01/01/2021,12/11/2020 Covid-19, Mrna, Lnp-s, Pf, B ivalent, 30 Mcg, IM, 12 yrs and above ([employer]) 07/06/2022 Pneumococcal Conjugate Vacc, 13 Valent (Prevnar) [...] Reading Time Taken Comments Blood Pressure 112/70 04/30/2024 1:19 PM EDT Pulse 84 04/30/2024 1:19 PM EDT Temperature 36.5 C (97.7 F) 04/30/2024 1:19 PM ED T Respiratory Rate 18 04/30/2024 1:19 PM EDT Oxygen Saturation 98% 04/30/2024 1:19 PM EDT Inhaled Oxygen Concentration - - Weight 48.5 kg (107 lb) 04/30/2024 1:19 PM EDT Height - - Body Mass Index 22.36 04/24/2024 9:46 AM EDT documented in this encounter Functional [...] of this encounter Progress Notes * Bonny Ferrara, RN - 04/30/2024 1:19 PM EDT [facility] Man Visit Date: 04/30/2024 Time: 1:19 PM Name: Andra Higgins : 1950 Current Concerns: Pt seen for return RNCM visit Weights have been up and down but seem to be more related to intake/weight gain and not fluid overload Legs have been without increased edema She denies having increased SOB She reports eating more and is also doing tube feedings at night. She does reports some days she does not eat as much as others. Denies issues with dizziness this visit She does have issues with skin irritation around peg tube site from taping drainage sponge on and was advised by surgeon to get an abdominal binder instead of using the tape She is going to check with [facility] or [facility] She continues to have areas on her skin that are itchy and with rash- particular area on left wristthat she has been scratching at Has been using triamciniolone but has not been helping Has also tried hydrocortisone in the past Advised to try benadryl cream or caladry clear gel to help with itching - she will get some from store and try Physical Exam: BP 112/70 | Pulse 84 | Temp 36.5 C (97.7 F) | Resp 18 | Wt 48.5 kg (107 lb) | LMP 10/03/2006 | SpO2 98% | BMI 22.36 kg/m | BSA 1.41 m Pain 0 Physical Exam Constitutional: General: She is not in acute distress. Cardiovascular: Rate and Rhythm: Normal rate and regular rhythm. Pulses: Normal pulses. Heart sounds: Normal heart sounds. Pulmonary: Effort: Pulmonary effort is normal. Breath sounds: Normal breath sounds. Abdominal: General: Bowel sounds are normal. Palpations: Abdomen is soft. Musculoskeletal: Right lower leg: Edema present. Left lower leg: Edema present. Skin: General: Skin is warm and dry. Neurological: Mental Status: She is alert and oriented to person, place, and time. Problems/Symptoms: Review of Systems Constitutional: Negative. HENT: Negative. Eyes: Negative. Respiratory: Positive for shortness of breath (SUTTON - at baseline). Cardiovascular: Positive for leg swelling (trace BLE). Gastrointestinal: Negative. Genitourinary: Negative. Musculoskeletal: Positive for arthralgias and back pain. Skin: Positive for rash (itching skin). Neurological: Negative. Psychiatric/Behavioral: Negative. Medication Reconciliation: (See medication list) Does patient take medications as ordered: Yes Patient Well Being: PHQ2/9: No questionnaires available. No change in living situation Denies any recent falls [facility]-10 Completed this Visit: No. Routine visit and No falls since last visit Advanced Care Planning: Living Will. and POLST. Reinforcement/Education: Reviewed HF symptom monitoring: -Weigh self daily [...] if at night -increased fatigue or vertigo COPD: Pt instructed to: -Call with increased SOB, wheezing, chest tightness, increased cough, increased sputum with change in color or consistency and fever. -Wash hands often -Drink plenty of fluids -Use inhalers as directed, do not stop or skip doses -Avoid stress -Rest when tired or SOB -Avoid triggers -Clean inhalers once a week Educated on home safety: Create a fall [...] exercises that will be right for you. Reinforced safety education and fall prevention. and Reinforced medication regimen. Timing., Dosing., and Purspose. Treatment/Plan: Continue meds as prescribed [facility] scale [...] or fatigue Patient Needs to Remember: Call [facility] at with any new or worsening health concerns or problems, red flag symptoms. Referrals Needed: Other none y Follow Up: Is there cellular connectivity/connectivity in the home? Yes Does the patient have internet in the home? Yes Patient encouraged to call the intake phone number for all urgent but not emergent issues. Is the patient new to [facility] within the last 30 days? No, Assess appropriateness for upcoming telehealth visits. Cancel telehealth visits & schedule home visit with care telesales team leader(s)as indicated. Provider is in agreement with Plan of Care: Yes Scheduled to follow up with patient in one month. Bonny Ferrara RN 04/30/2024 1:19 PM documented in this encounter Plan of Treatment Upcoming Encounters Date Type Department Care Team (Late st Contact Info) Description 05/11/2024 9:30 AM EDT Anticoagulation Family Practice [address] [facility] [address] [place] [address] College, Pharmacist [address], [place] [address] 05/11/2024 10:00 AM EDT Office Visit Family Practice [address] [facility] [address] [place] [address] Olya Kimble DO [address] [place] [address] 05/18/2024 9:30 AM EDT Office Visit Cardiology, [facility] [address] [place] [address] Alicia Anand CRNP [address] [place] [address] 05/31/2024 2:30 PM EDT [facility] 132 [facility] [place] [address] Bonny Ferrara RN [address] [place] [address] 06/19/2024 2:00 PM EDT Nurse Only Ancillary [address] [facility] [address] [place] [address] College, Nurse Annual Wellness Visit [address] [address] 01/03/2025 1:00 PM EDT Office Visit General Surgery, [facility] [address] [place] [address] Terry Link MD [address] [place] [address] Scheduled Procedures Name Priority Associated Diagnoses Date/Ti [...] D LEVEL ONCE IN A LIFETIME-USE SMARTSET# 77771 Completed 02/03/2024, 11/15/2023, 06/13/2023, Additional history exists [...] this encounter Medical Devices Implanted Type Area Tile Roofer Device Identifier Shelf Expiration Date Model / Serial / Lot Shannonsh Square 30cm X 30cm - [id number] Implanted:Qty: 1 on 06/09/2016 by Dustin Smith MD at OR [facility] N/A: Abdomen [employer] 03/16/2021 [id number] / / [id number] documented as of this encounter Advance Directives [...] Higgins Spouse Health Care Agent Care Teams Cement Truck Driver Relationship Specialty Start Date End Date Olya Kimble DO [address] [place] [id number] PCP - General Family Medicine 03/29/24 documented as of this encounter
--- OUTSIDE RECORDS SUMMARY | 2024-07-10 03:42 | External Medical Summary ---
Author Name Unknown Address Unknown Organization : Laboratory Report Ordering Provider Test Date Status ANGIE LITTLE 05/11/2024 10:07:58 Final Therapeutic ranges for non-o perative patients:
Prophylaxsis/treatment of DVT: (Range:2.0-3.0)
Treatment of pulmonary embolism:(Range:2.0-3.0)
Prevention of systemic embolism from:
-tissue heart valves
-acute myocardial infarction
-valvular heart disease
-atrial fibrillation
(Range: 2.0-3.0)
Mechanical prosthetic valves: (Range: 2.5-3.5) Observation Date Value Abnormality Reference (Units ) Status INR in Capillary blood by Coagulation assay 05/11/2024 10:07:58 1.5 (INR) Final Performing Location
--- OUTSIDE RECORDS SUMMARY | 2024-07-10 03:42 | External Medical Summary | Summary of Care ---
Author Name Unknown Organization [facility] Address [address] [place] [address] Phone [phone] Care Team Providers Care Bean Snapper Name Role Phone Olya Kimble DO Primary Care Provider Reason for Visit * Reason Comments Follow Up Encounter Details Date Type Department Care Team (Late st Contact Info) Description 05/11/2024 10:00 AM EDT Office Visit Family Practice 65 [facility] [address] [place] [address] Olya Kimble DO [address] [place] [address] Jejunostomy tube present (HCC)*; Postgastric surgery syndrome; Cardiac pacemaker in situ; Moderate persistent asthma without complication; Chronic diastolic heart failure (HCC); B12 deficiency Allergies Active Allergy Reactions Criticality [...] continuous J tube feeds, via feeding pump. 35855 mL 11 07/12/2023 Active Trolamine Salicylate 10 [...] Blood Pressure MonitorIndications:L ightheadedness,Persi stent atrial fibrillation ([facility]),Tachy-corin syndrome (HCC),Hypertensive heart disease with chronic diastolic congestive heart failure ([facility]) Provide one blood pressure monitor with standard size arm cuff 1 Each 04/02/2024 Active Ondansetron HCl 4 MG Oral Tablet Take 1 Tablet by mouth every 8 hours as needed for Nausea. 30 Tablet 05/04/2024 Active Abdominal Binder/Elastic MedIndications:Jejun ostomy tube present ([facility]),Postgastric surgery syndrome Use abdominal binder to hold in feeding tube due to skin irritation 1 Each 05/11/2024 Active Hospital, Clinic, or Other Facility Administered Medication Ordered Dose Route Frequency Start Date End Date Status vitamin b-12 (Cyanocobalamin) inj 1,000 mcgIndications:S/P biliopancreatic diversion with duodenal switch 1000 mcg IM [id number] 02/01/2023 Active Albuterol Sulfate (Proventil) (2.5 MG/3ML) 0.083% inhalation solution 2.5 mgIndications:COPD, group B, by GOLD 2017 classification ([facility]),Moderate persistent asthma without complication 2.5 mg NEBULIZER PRN 05/16/2023 05/15/2024 Acti ve Albuterol Sulfate (Proventil) (5 MG/ML) 0.5% *conc* inhalation solution 2.5 mgIndications:COPD, group B, by GOLD 2017 classification ([facility]),Moderate persistent asthma without complication 2.5 [...] Personal history of gastric bypass 02/16/2016 Overview: 2003 Repaired Sep 2105, along with ventral hernia [...] INCISION; Date; 04/06/04 Original Weight; 275 Hospital; [facility] Surgeon; Dustin Smith MD REVISION; OPEN INCISIONRevision of gastrojejunostomy for gastrogastric fistula, distalization of marquita limb with 150 cm common channel Date; 09/25/15 [facility]; [facility] Surgeon; Dustin Smith MD Repair recurrentincisional or [...] mRNA, LNP-s, No Pre serve, 2-Dose Series (Pulmologix) 08/19/2021,01/01/2021,12/11/2020 COVID-19, MRNA-LNP, 23-24, P F, 30 MCG/0.3 mL, 12 YRS AND ABOVE, IM ([employer]) 03/14/2024,08/08/2023 Covid-19 Ad26, Single Dose (Tier 3/J&Temnos) 01/01/2021,12/11/2020 Covid-19, Mrna, Lnp-s, Pf, B ivalent, 30 Mcg, IM, 12 yrs and above (Pulmologix) 07/06/2022 Pneumococcal Conjugate Vacc, 13 Valent (Prevnar) [...] Sign Reading Time Taken Comments Blood Pressure 108/64 05/11/2024 9:55 AM EDT Pulse 70 05/11/2024 9:55 AM EDT Temperature 35.9 C (96.6 F) 05/11/2024 9:55 AM ED T Respiratory Rate 14 05/11/2024 9:55 AM EDT Oxygen Saturation 97% 05/11/2024 9:55 AM EDT Inhaled Oxygen Concentration - - Weight 49.5 kg (109 lb 3.2 oz) 05/11/2024 9:55 A M EDT Height 147.3 cm (4' 10") 05/11/2024 9:55 AM EDT Body Mass Index 22.82 05/11/2024 9:55 AM EDT documented in this [...] as of this encounter Progress Notes * Olya Kimble, DO - 05/11/2024 10:06 AM EDT SUBJECTIVE: Chief Complaint Patient presents with Follow Up HPI: Andra Higgins is a 73 year old female who presents today for regular return. Pt states she has a "humming in her chest". She states that when she lies on her left side, she notices it. She notes no wheezing. No issues breathing. She will rarely notice it during the day. Pt is questioning about an abdominal binder. She notes Dr. Link suggested trial of an abdominal binder. Pt notes she was vomiting and had diarrhea on Tuesday. She felt poorly. Anything she ate came back up. She notes this resolved within 24 hours and she is eating normally and feeling well now. PHM: Patient Active Problem List Diagnosis Postgastric [...] to rash on face 454 g 1 QC Womens Daily Multivitamin Oral Tablet Take [...] continuous J tube feeds, via feeding pump. 68259 mL 11 Trolamine Salicylate 10 % External [...] 1 Capsule by mouth in the morning. Metoprolol Succinate ER 25 MG Oral Tablet Extended Release 24 Hour (toPROL XL) Take 1 tablet in themorning and 1.5 tablets in the evening. (Patient taking differently: Take 1.5 tablets in the morning and 1.5 tablets in the evening.) 200 Tablet 3 Warfarin Sodium 2.5 MG Oral Tablet (Coumadin) [...] as needed for Nausea. 30 Tablet 0 Syringe Luer Lock 25G X 5/8" 3 ML For vitamin B12 injections 16 Each 2 Ferrous Sulfate 325 (65 Fe) MG Oral Tablet Take 1 Tablet by mouth daily with breakfast. (Patient not taking: Reported on 05/11/2024) Compressor Nebulizer Inhale via nebulizer. Use as directed. 1 Each 1 DIURETIC TITRATION PLAN If no improvement on day 3, contact heart failure managing provider. 1 Each0 Blood Pressure Monitor Provide one blood pressure monitor with standard size arm cuff 1 Each 0 Current Facility-Administered Medications Medication Dose Route Frequency Provider Last Rate Last Admin vitamin b-12 (Cyanocobalamin) inj 1,000 mcg 1,000 mcg Intramuscular Q4 Weeks Benito Lorenzo, DO 1,000 mcg at 04/02/24 1029 Albuterol Sulfate (Proventil) (2.5 MG/3ML) 0.083% inhalation solution 2.5 mg 2.5 mg Nebulizer PRN Rhed, Purnima Janina, FINANCIAL FOUNDATIONS REPRESENTATIVE 2.5 mg at 06/14/23 1027 Albuterol Sulfate (Proventil) (5 MG/ML) 0.5% *conc* inhalation solution 2.5 mg 2.5 mg Nebulizer PRNRhed, Purnima Janina, FINANCIAL FOUNDATIONS REPRESENTATIVE Past Medical History: Diagnosis Date Allergic rhinitis [...] 2004 2004 - abd hernia done at [facility] COLONOSCOPY 05/23/2002 normal screening colo COLONOSCOPY THRU STOMA, W/BIOPSY 07/2009 adenomatous tissue bx, f/u in 3 yrs COLONOSCOPY, DIAGNOSTIC (RECTUM) 09/18/2013 COLONOSCOPY FLEXIBLE PROXIMAL DIAGNOSTIC performed by Manjula Bryson MD at ENDOSCOPY [facility] COLONOSCOPY, DIAGNOSTIC (RECTUM) 03/22/2016 adenomatous polyp, poor prep, repeat 6 mo/[facility] COLONOSCOPY, DIAGNOSTIC (RECTUM) 11/13/2021 adenomatous polyp, repeat 5 yrs / [facility] DEXA SCAN/BONE MINERAL AXIAL 2016 repeat 5 years, 2021 EGD, FLEXIBLE, DIAGNOSTIC 03/22/2016 normal bx/[facility] EGD, FLEXIBLE, DIAGNOSTIC 09/14/2016 hyperplastic polyps, repeat 5 yrs/[facility] EGD, FLEXIBLE, DIAGNOSTIC N/A 08/11/2021 biopsies show mild inflammation of esophagus/EGD/[place] EGD, FLEXIBLE, DIAGNOSTIC 06/18/2022 normal bx / [facility] GASTRIC BYPASS FOR OBESITY 2003 IMPLANT MESH W/ ABD HERNIA REPR/DEBRIDE N/A 06/09/2016 IMPLANTATION MESH WITH INCISIONAL/VENTRAL HERNIA performed by Dustin Smith MD at OR [facility] INJECT DX/THER SUBSTANCE INTERLAMINAR LUMBAR/SACRAL W IMAGE GUIDE 05/26/2022 INJECTION SPINE LUMBAR OR SACRAL performed by Refugio Noriega DO at OR [facility] INSERT/REPLACE PACEMAKER,ATRIAL/VENTRICULAR 10/24/2018 IR TUBE REPLACEMENT GASTROSTOMY PERCUTANEOUS OR CECOSTOMY Left 12/30/2023 PERCUTANEOUS REPLACE GASTROSTOMY OR CECOSTOMY TUBE WITH FLUORO performed by Flynn Mesa MD at [facility] JEJUNOSTOMY, LAPAROSCOPIC N/A 08/31/2022 LAPAROSCOPIC ILEOSTOMY OR JEJUNOSTOMY performed by Terry Link MD at [facility] JEJUNOSTOMY, LAPAROSCOPIC N/A 07/01/2023 LAPAROSCOPIC ILEOSTOMY OR JEJUNOSTOMY performed by Terry Link MD at [facility] LIGATE/CUT OVIDUCT(S) AT SURGERY REMOVAL OF APPENDIX 1969 REMOVAL OF SMALL INTESTINE W/FUSION N/A 09/25/2015 ENTERECTOMY SMALL BOWEL RESECTION performed by Dustin Smith MD at OR [facility] REMOVE GALLBLADDER 1979's REMOVE STOMACH, PARTIAL N/A 09/25/2015 GASTRECTOMY PARTIAL WITH GASTROJEJUNOSTOMY performed by Dustin Smith MD at OR [facility] REPAIR INITIAL INCISIONAL OR VENTRAL HERNIA; REDUCIBLE N/A 09/25/2015 REPAIR INITIAL INCISIONAL /VENTRAL HERNIA REDUCIBLE performed by Dustin Smith MD at [facility] REPAIR INITIAL INCISIONAL OR VENTRAL HERNIA; REDUCIBLE N/A 06/09/2016 REPAIR INITIAL INCISIONAL /VENTRAL HERNIA REDUCIBLE performed by Dustin Smith MD at [facility] SACROILIAC JOINT INJECT W/GUIDANCE 02/23/2023 INJECTION SACROILIAC JOINT performed by Refugio Noriega DO at OR [facility] TREATMENT OF INCOMPLETE Review of patient's [...] Lorelei Cornells lukemia Cancer Grandfather (Maternal) Derrick Nueñz prostate Heart Disorder Grandfather (Maternal) Derrick Cornells Cancer Grandfather (Paternal) [place] Cancer Aunt (Maternal) lung and breast Breast [...] color change, pallor and rash. OBJECTIVE: BP 108/64 (BP Site: Left Arm, BP Position: Sitting, BP Cuff Size: Regular) | Pulse 70 | Temp 35.9 C (96.6 F) (Tympanic) | Resp 14 | Ht 1.473 m (4' 10") | Wt 49.5 kg (109 lb 3.2 oz) | LMP 10/03/2006 | SpO2 97% | BMI 22.82 kg/m | BSA 1.42 m PHYSICAL EXAM: [...] Jejunostomy tube present (HCC) (primary encounter diagnosis) K91.1) Postgastric surgery syndrome Plan: Abdominal Binder/Elastic Med Will see if we can get abdominal binder covered by [employer]. This may help with skin irritation around her tube site. (Z95.0) Cardiac pacemaker in situ Plan: XR CHEST 2 VIEWS, XR CHEST 2 VIEWS Will check CXR given that the "humming" seems to be at pacer site. (J45.40) Moderate persistent asthma without complication Plan: No wheezing. Well controlled. No recent issues. (I50.32) Chronic diastolic heart failure (HCC) Plan: pt will remain on current regimen. Euvolemic today. Follow-up: 3 weeks Total time today including reviewing chart before the visit, pertinent labs, imaging reports, face to face time, and documentation time was 33 minutes. Olya Kimble DO documented in this encounter Nursing Notes * Emmy Esposito LPN - 05/11/2024 10:29 AM EDT Pre-Administration Time Out Procedure Performed: Yes Patient Identified (Ask Name/Date of ): Yes Does the patient have a fever greater than 101 degrees today? No Patient allergic to latex? No Has the patient ever fainted after receiving an injection? No VFC Stock: No Injection(s) verified: Yes, Injection Name: B12 Verified Side and Site: Yes Verified Shot(s) with Parent(s)/Patient: Yes * Emmy Esposito LPN - 05/11/2024 9:54 AM EDT Patient here for routine follow up visit. Reports she is not taking Ferrous Sulfate as it constipates her. States she feels a humming in her chest. Has cardio appt next week. No chest pain. documented in this encounter Plan of Treatment Upcoming Encounters Date Type Department Care Team (Late st Contact Info) Description 05/18/2024 9:30 AM EDT Office Visit Cardiology, [facility] [address] [facility] [place] [address] Alicia Anand CRNP 132 [facility] [place] [address] 05/31/2024 2:30 PM EDT Home Visit [facility] [address] [place] [address] Bonny Ferrara, RN 132 [facility] [place] [address] 06/01/2024 8:40 AM EDT Office Visit Family Practice [address] [place] [address] [facility] [phone] [facility] [address] 06/01/2024 9:20 AM EDT Anticoagulation Family Practice [address] [place] [address] [address] [facility] [phone] College, Pharmacist [address] [place] [address] 06/19/2024 2:00 PM EDT Nurse Only Ancillary [address] [facility] [address] [place] [address] College, Nurse Annual Wellness Visit [address] [address] 01/03/2025 1:00 PM EDT Office Visit General Surgery, [facility] [address] [facility] [place] [address] Terry Link MD [address], [place] [id number] Scheduled Orders Name Type Priority Associated Diagnoses Orde r Schedule XR CHEST 2 VIEWS Medical Imaging Routine Cardiac pacemaker in situ Ordered: 05/11/2024 XR CHEST 2 VIEWS Medical Imaging Routine Cardiac pacemaker in situ Expected: 05/11/2024, Expires: 06/11/2025 Scheduled Procedures Name Priority Associated Diagnoses Date/Ti [...] D LEVEL ONCE IN A LIFETIME-USE SMARTSET# [id number] Completed 02/03/2024, 11/15/2023, 06/13/2023, Additional history exists [...] this encounter Medical Devices Implanted Type Area Shredded Filler Cutter Operator Device Identifier Shelf Expiration Date Model / Serial / Lot [facility] Square 30cm X 30cm - [id number] Implanted:Qty: 1 on 06/09/2016 by Dustin Smith MD at OR [facility] N/A: Abdomen [employer] 03/16/2021 [id number] / / [id number] documented as of this encounter Visit Diagnoses Diagnosis Jejunostomy tube present (HCC)- Primary Status of other artificial opening of gastrointestinal tract Postgastric surgery syndrome Postgastric surgery syndromes Cardiac pacemaker in situ Moderate persistent asthma without complication Unspecified asthma Chronic diastolic heart failure (HCC) Chronic diastolic heart failure B12 deficiency Other B-complex deficiencies documented in this encounter Administered Medications Active Administered Medications - up to 3 most recent administrations Medication Order MAR Action Action Date Dose Rate Site vitamin b-12 (Cyanocobalamin) inj 1,000 mcg 1,000 mcg, Intramuscular, [id number], First dose on Tue02/01/23 at 0000, Until Discontinued Given 05/11/2024 10:30 AM EDT 1,000 mcg Deltoid Left Upper Given 04/02/2024 10:29 AM EDT 1,000 mcg D eltoid Left Upper Given 02/29/2024 9:38 AM EDT 1,000 mcg De ltoid Left Upper documented in this encounter Advance [...] Agents on File Name Relationship Healthcare Agent [facility] p Communication Praful Higgins Spouse Health Care Agent Care Teams Bean Snapper Relationship Specialty Start Date End Date Holencik, Olya M, DO [address] [place] [facility] [place] [address] PCP - General Family Medicine 03/29/24 documented as of this encounter
--- OUTSIDE RECORDS SUMMARY | 2024-07-10 03:42 | External Medical Summary | Summary of Care ---
Author Name Unknown Organization [facility] Address [address] [facility] [place] [place] [address] Phone [phone] Care Team Providers Care Silver Service Waiter Name Role Phone Xenadebra Olya Palencia DO Primary Care Provider [phone] Reason for Visit * Reason Onset Date Comments [facility]: Maintenance 05/12/2024 Encounter Details Date Type Department Care Team (Late st Contact Info) Description 05/12/2024 Telephone [facility], [place] [address] [facility] [place] [address] [employer], Nurse [facility] [address] [facility] [place] [address] [facility]: Maintenance Allergies Active Allergy Reactions Criticality Noted Date Comments Denosumab High 02/22/2023 SEVERE HYPOCALCEMIA documented as of this encounter (statuses as of 05/12/2024) Medications Medication Sig Dispensed Refills Start Date [...] continuous J tube feeds, via feeding pump. 70845 mL 11 07/12/2023 Active Trolamine Salicylate 10 [...] MonitorIndications:L ightheadedness,Persi stent atrial fibrillation ([facility]),Tachy-corin syndrome ([facility]),Hypertensive heart disease with chronic diastolic congestive heart failure ([facility]) Provide one blood pressure monitor with standard size arm cuff 1 Each 04/02/2024 Active Ondansetron HCl 4 MG Oral Tablet Take 1 Tablet by mouth every 8 hours as needed for Nausea. 30 Tablet 05/04/2024 Active Abdominal Binder/Elastic MedIndications:Jejun ostomy tube present ([facility]),Postgastric surgery syndrome Use abdominal binder to hold in feeding tube due to skin irritation 1 Each 05/11/2024 Active Hospital, Clinic, or Other Facility Administered Medication Ordered Dose Route Frequency Start Date End Date Status vitamin b-12 (Cyanocobalamin) inj 1,000 mcgIndications:S/P biliopancreatic diversion with duodenal switch 1000 mcg IM [id number] 02/01/2023 Active Albuterol Sulfate (Proventil) (2.5 MG/3ML) 0.083% inhalation solution 2.5 mgIndications:COPD, group B, by GOLD 2017 classification ([facility]),Moderate persistent asthma without complication 2.5 mg NEBULIZER PRN 05/16/2023 05/15/2024 Acti ve Albuterol Sulfate (Proventil) (5 MG/ML) 0.5% *conc* inhalation solution 2.5 mgIndications:COPD, group B, by GOLD 2017 classification (HCC),Moderate persistent asthma without complication 2.5 mg NEBULIZER PRN 05/16/2023 05/15/2024 Acti ve documented as of this encounter (statuses as of 05/12/2024) Active Problems Problem Noted Date Diagnosed Date [...] in the Comments) Remote Patient Monitoring Vendor: [facility] Device(s): Connected Scale Traditional Pulse Ox Self [...] INCISION; Date; 04/06/04 Original Weight; 275 Hospital; [facility] Surgeon; Dustin Smith MD REVISION; OPEN INCISIONRevision of gastrojejunostomy for gastrogastric fistula, distalization of marquita limb with 150 cm common channel Date; 09/25/15 [facility]; [facility] Surgeon; Dustin Smith MD Repair recurrentincisional or ventral hernia, age 5 years or over; reducible06/09/16 Implantation of mesh or other prosthesis for incisional or ventral hernia repair. documented as of this encounter (statuses as of 05/12/2024) Resolved Problems Problem Noted Date Diagnosed Date [...] as of this encounter (statuses as of 05/12/2024) Immunizations Name Administration Dates Next Due COVID-19 mRNA, LNP-s, No Pre serve, 2-Dose Series (CardMunch) 08/19/2021,01/01/2021,12/11/2020 COVID-19, MRNA-LNP, 23-24, P F, 30 MCG/0.3 mL, 12 YRS AND ABOVE, IM ([employer]) 03/14/2024,08/08/2023 Covid-19 Ad26, Single Dose (Moxsie/J&J) 01/01/2021,12/11/2020 Covid-19, Mrna, Lnp-s, Pf, B ivalent, 30 Mcg, IM, 12 yrs and above (CardMunch) 07/06/2022 Pneumococcal Conjugate Vacc, 13 Valent (Prevnar) [...] Telephone Encounter - Wendi Watkins LPN - 05/12/2024 11:56 AM EDT Images from the original note were not included. [facility] Remote Patient Monitoring Unable to contact patient: Trigger type: Abnormal reading(s): Device(s) Triggered: [facility] (Advanced Monitored Caregiving): Scale: Trigger weight: 111.6 lbs; weight increased 6 lbs in 5 day(s) Plan: call placed to patient for AMC weight trigger. Left message on mobile number for return call to [facility] Wendi Watkins LPN [facility] 05/12/2024,11:56 AM documented in this encounter Plan of Treatment Upcoming Encounters Date Type Department Care Team (Late st Contact Info) Description 05/18/2024 9:30 AM EDT Office Visit Cardiology, [facility] 132 [facility] [place] [address] Alicia Anand CRNP [address] [facility] [place] [address] 05/31/2024 2:30 PM EDT Home Visit [facility], [facility] [address] [place] [address] Bonny Frerara RN 132 [facility] [place] [address] 06/01/2024 8:40 AM EDT Office Visit Family Practice [address], [place] [phone] Olya Kimble DO 293 [facility] [place] [address] 06/01/2024 9:20 AM EDT Anticoagulation Family Practice 65 [facility] 293 [facility], [place] [phone] College, Pharmacist [address] [place] [address] 06/19/2024 2:00 PM EDT Nurse Only Ancillary [address], [place] [address] College, Nurse Annual Wellness Visit 65 [employer] [address] [facility], [place] [address] 01/03/2025 1:00 PM EDT Office Visit General Surgery, [facility] [address] [place] [address] Terry Link MD [address] [place] [address] Scheduled Procedures Name Priority Associated [...] D LEVEL ONCE IN A LIFETIME-USE SMARTSET# [id number] Completed 02/03/2024, 11/15/2023, 06/13/2023, Additional history exists [...] this encounter Medical Devices Implanted Type Area Social Security Assessor Device Identifier Shelf Expiration Date Model / Serial / Lot Vitamesh Square 30cm X 30cm - [id number] Implanted:Qty: 1 on 06/09/2016 by Dustin Smith MD at [facility] N/A: Abdomen [employer] 03/16/2021 [id number] / / [id number] documented as of this encounter Advance Directives [...] Higgins Spouse Health Care Agent Care Teams Silver Service Waiter Relationship Specialty Start Date End Date Olya Kimble DO [address] [place] [address] PCP - General Family Medicine 03/29/24 documented as of this encounter
--- OUTSIDE RECORDS SUMMARY | 2024-07-10 03:42 | External Medical Summary | Summary of Care ---
Author Name Unknown Organization [facility] Address [address] [place] [address] Phone [phone] Care Team Providers Care Assistant Terminal Manager Name Role Phone Xenadebra Olya Palencia DO Primary Care Provider + [phone] Reason for Visit * Reason Comments [facility]: Maintenance Encounter Details Date Type Department Care Team (Late st Contact Info) Description 03/23/2024 4:00 PM EDT [facility] Visit [facility], [facility] [address] [facility] [address] Bonny Ferrara, RN [address] [facility] [place], [place] [place] [address] Allergies Active Allergy Reactions Criticality Noted Date Comments Denosumab High 02/22/2023 SEVERE HYPOCALCEMIA documented as of this encounter (statuses as of 05/07/2024) Medications Medication Sig Dispensed Refills Start Date [...] continuous J tube feeds, via feeding pump. 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 100 Tablet 3 4 Active Ondansetron HCl 4 MG Oral Tablet Take 1 Tablet by mouth every 8 hours as needed for Nausea. 30 Tablet 4 05/04/20 24 Discontinu ed(Refill) Hospital, Clinic, or Other Facility Administered Medication Ordered Dose Route Frequency Start Date End Date Status vitamin b-12 (Cyanocobalamin) inj 1,000 mcgIndications:S/P biliopancreatic diversion with duodenal switch 1000 mcg IM [id number] 02/01/2023 Active Albuterol Sulfate (Proventil) (2.5 MG/3ML) 0.083% inhalation solution 2.5 mgIndications:COPD, group B, by GOLD 2017 classification ([facility]),Moderate persistent asthma without complication 2.5 mg NEBULIZER PRN 05/16/2023 05/15/2024 Acti ve Albuterol Sulfate (Proventil) (5 MG/ML) 0.5% *conc* inhalation solution 2.5 mgIndications:COPD, group B, by GOLD 2017 classification ([facility]),Moderate persistent asthma without complication 2.5 mg NEBULIZER PRN 05/16/2023 05/15/2024 Acti ve documented as of this encounter (statuses as of 05/07/2024) Active Problems Problem Noted Date Diagnosed Date [...] Original Weight; 275 Hospital; [facility] Surgeon; Dustin Smith MD REVISION; OPEN INCISIONRevision of gastrojejunostomy for gastrogastric fistula, distalization of marquita limb with 150 cm common channel Date; 09/25/15 [facility]; [facility] Surgeon; Dustin Smith MD Repair recurrentincisional or ventral hernia, age 5 years or over; reducible06/09/16 Implantation of mesh or other prosthesis for incisional or ventral hernia repair. documented as of this encounter (statuses as of 05/07/2024) Resolved Problems Problem Noted Date Diagnosed Date [...] as of this encounter (statuses as of 05/07/2024) Immunizations Name Administration Dates Next Due COVID-19 mRNA, LNP-s, No Pre serve, 2-Dose Series ([employer]) 08/19/2021,01/01/2021,12/11/2020 COVID-19, MRNA-LNP, 23-24, P F, 30 MCG/0.3 mL, 12 YRS AND ABOVE, IM ([employer]Mat) 03/14/2024,08/08/2023 Covid-19 Ad26, Single Dose ([employer]J&TravelLine) 01/01/2021,12/11/2020 Covid-19, Mrna, Lnp-s, Pf, B ivalent, 30 Mcg, IM, 12 yrs and above (BIOeCON) 07/06/2022 Pneumococcal Conjugate Vacc, 13 Valent (Prevnar) [...] Reading Time Taken Comments Blood Pressure 108/64 03/23/2024 10:13 AM EDT left arm standing Pulse 85 03/23/2024 10:09 AM EDT Temperature 37.2 C (98.9 F) 03/23/2024 1 0:09 AM EDT Respiratory Rate 18 03/23/2024 10:0 9 AM EDT Oxygen Saturation 98% 03/23/2024 10: 09 AM EDT Inhaled Oxygen Concentration - - Weight 50.1 kg (110 lb 6.4 oz) 03/23/2024 10:09 AM EDT Height - - Body Mass Index 23.07 03/14/2024 10:50 AM EDT documented in this encounter Functional [...] Progress Notes * Bonny Ferrara, RN - 03/23/2024 9:11 AM EDT Images from the original note were not included. 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 Visit Date: 03/23/2024 Time: 9:11 AM Name: Andra Higgins : 1950 Current Concerns: Pt seen for return RNCM visit Recently completed Zio monitor and mailed in for Cardiology - waiting on results States she has been having dizziness with position change Bp 112/70 sitting and 108/64 standing, denies dizziness at this time Has been gaining weight but euvolemic States she is doing more tube feedings, 2 cans of Peptamen 1.5 during the day and 2 cans at night She states she does eat some, some days are better than others Bottles out med review done Found that she was only taking Zinc once a day, med list reports she is to take it twice a day - she fixed this in her pill box Pt not taking Ferrous Sulfate anymore Physical Exam: BP 108/64 Comment: left arm standing | Pulse 85 | Temp 37.2 C (98.9 F) | Resp 18 | Wt 50.1 kg (110 lb 6.4 oz) | LMP 10/03/2006 | SpO2 98% | BMI 23.07 kg/m | BSA 1.43 m Pain 0 Physical Exam Constitutional: General: She is not in acute distress. Cardiovascular: Rate and Rhythm: Normal rate and regular rhythm. Pulses: Normal pulses. Heart sounds: Normal heart sounds. Pulmonary: Effort: Pulmonary effort is normal. Breath sounds: Normal breath sounds. Abdominal: Palpations: Abdomen is soft. Skin: General: Skin is warm and dry. Neurological: Mental Status: She is alert and oriented to person, place, and time. Problems/Symptoms: Review of Systems Constitutional: Negative. HENT: Positive for hearing loss ([place]). Respiratory: Positive for shortness of breath ([place] - at baseline). Cardiovascular: Negative. Genitourinary: Negative. Musculoskeletal: Positive for arthralgias, back pain and gait problem. Neurological: Positive for dizziness (with position change). Psychiatric/Behavioral: Negative. Medication Reconciliation: (See medication list) Does patient take medications as ordered: Yes Patient Well Being: PHQ2/9: No questionnaires available. No change in living situation Denies any recent falls [facility]-10 Completed this Visit: No. Routine visit and No falls since last visit Advanced Care Planning: POLST. Reinforcement/Education: Reviewed HF symptom monitoring: -Weigh [...] Patient's 'Red Flags': Increased SOB Increased edema Increased weakness/fatigue Patient Needs to Remember: Call [facility] at with any new or worsening health concerns or problems, red flag symptoms. Referrals Needed: Other none Follow Up: Is there cellular connectivity/connectivity in the home? Yes Does the patient have internet in the home? Yes Patient encouraged to call the intake phone number for all urgent but not emergent issues. Is the patient new to [facility] within the last 30 days? No, Assess appropriateness for upcoming telehealth visits. Cancel telehealth visits & schedule home visit with care hat steamer(s)as indicated. Provider is in agreement with Plan of Care: Yes Scheduled to follow up with patient in one month. Bonny Ferrara RN 03/23/2024 9:11 AM documented in this encounter Plan of Treatment Upcoming Encounters Date Type Department Care Team (Late st Contact Info) Description 05/11/2024 9:30 AM EDT Anticoagulation Family Practice 65 [facility] 293 [place] [address] College, Pharmacist [address] [place] [address] 05/11/2024 10:00 AM EDT Office Visit Family Practice 65 [facility] 293 [place] [id number] Olya Kimble DO 293 [place] [address] 05/18/2024 9:30 AM EDT Office Visit Cardiology, [facility] 132 [facility] [place] [address] Alicia Anand CRNP 132 [facility] [place] [address] 05/31/2024 2:30 PM EDT Home Visit [facility], [facility] 132 [facility] [place] [address] Bonny Ferrara RN 132 [facility] [place] [address] 06/19/2024 2:00 PM EDT Nurse Only Ancillary 65 [facility] 293 [place] [address] College, Nurse Annual Wellness Visit [address] [address] 01/03/2025 1:00 PM EDT Office Visit General Surgery, [facility] 132 [facility] [place] [address] Terry Link MD [address] [place] [address] Scheduled Procedures Name Priority Associated Diagnoses Date/Ti [...] D LEVEL ONCE IN A LIFETIME-USE SMARTSET# 02636 Completed 02/03/2024, 11/15/2023, 06/13/2023, Additional history exists [...] this encounter Medical Devices Implanted Type Area Lumber Driver Device Identifier Shelf Expiration Date Model / Serial / Lot Vitamesh Square 30cm X 30cm - [id number] Implanted:Qty: 1 on 06/09/2016 by Dustin Smith MD at OR [facility] N/A: Abdomen [employer] 03/16/2021 [id number] / / [id number] documented as of this encounter Advance Directives [...] File Name Relationship Healthcare Agent [facility] p Communication Praful Higgins Spouse Health Care Agent Care Teams Assistant Terminal Manager Relationship Specialty Start Date End Date Olya Kimble DO PCP - General Family Medicine 04/30/22 03/28/24 documented as of this encounter
--- OUTSIDE RECORDS SUMMARY | 2024-07-10 03:42 | External Medical Summary | Summary of Care ---
Author Name Unknown Organization [facility] Address [address] [facility] [address] Phone [phone] Care Team Providers Care Podiatrist Name Role Phone Xenadebra Olya Palencia DO Primary Care Provider [phone] Encounter Details Date Type Department Care Team (Late st Contact Info) Description 02/07/2024 Telephone Nutrition & Weight Management, [facility] [address] [place] [address] Andra Beltran PA-C [address] [place] [address] Allergies Active Allergy Reactions Criticality Noted Date Comments Denosumab High 02/22/2023 SEVERE HYPOCALCEMIA documented as of this encounter (statuses as of 05/08/2024) Medications Medication Sig Dispensed Refills Start Date [...] as needed for Wheezing. 120 mL 1 01/26/20 23 Active Compressor NebulizerIndication s:Acute hypoxemic respiratory failure (HCC) Inhale via nebulizer. Use as directed. 1 Each 1 01/26/20 23 Active DIURETIC TITRATION PLAN If [...] continuous J tube feeds, via feeding pump. 94328 mL 11 07/12/20 Active Trolamine Salicylate 10 % External Cream Apply topically to affected area as needed. Apply to affected area Active Albuterol Sulfate HFA 108 (90 Base) MCG/ACT Inhalation Aerosol Solution Inhale 2 Puffs by mouth every 4 hours as needed for Shortness of Breath. 54 g 1 07/21/20 23 Active Digoxin 125 MCG Oral Tablet (Lanoxin) Take 1 Tablet by mouth in the morning. 90 Tablet 3 07/21/20 23 Active Vitamin D3 125 MCG (5000 UT) [...] the evening. 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 45 Tablet 3 01/11/20 24 Active diphenhydrAMINE HCl 12.5 MG Oral Tablet Chewable Take 12.5 mg by mouth 2 times a day as needed (allergic reaction). 024 Discontinued(Me dication List Clean Up) Bisacodyl 5 MG Oral Tablet Delayed Release Take 1 Tablet by mouth daily as needed for Constipation. 024 Discontinued(Me dication List Clean Up) Omeprazole 20 MG Oral Capsule Delayed Release (PriLOSEC)Indicatio ns:Gastro-esophagea l reflux disease without esophagitis TAKE ONE CAPSULE BY MOUTH EVERY MORNING -- 1 HOUR BEFORE THE FIRST MEAL OF THE DAY 100 Capsule 3 01/19/20 23 024 Discontinued(Re fill) Zafirlukast 20 MG Oral Tablet (Accolate) TAKE ONE TABLET BY MOUTH TWICE A DAY ON AN EMPTY STOMACH 180 Tablet 1 10/12/20 23 024 Discontinued Cephalexin 500 MG Oral CapsuleIndications: Skin infection Take 1 Capsule by mouth in the morning and 1 Capsule before bedtime. Do all this for 10 days. 20 Capsule 10/20/19 24 024 Discontinued(Me dication List Clean Up) Abrysvo 120 MCG/0.5ML Intramuscular Solution Reconstituted (RSV Pre-Fusion F A&B Vac Rc)Indications:Ne ed for RSV vaccination Inject 0.5 mL into a large muscle once for 1 dose. 1 Each 12/12/19 24 024 Discontinued(Me dication List Clean Up) Calcitriol 0.25 MCG Oral Capsule (Rocaltrol)Indicati ons:Hypocalcemia Take 2 Capsules by mouth in the morning and 2 Capsules before bedtime. 400 Capsule 1 01/02/20 24 024 Discontinued(Wa dication List Clean Up) Hospital, Clinic, or Other Facility Administered Medication Ordered Dose Route Frequency Start Date End Date Status vitamin b-12 (Cyanocobalamin) inj 1,000 mcgIndications:S/P biliopancreatic diversion with duodenal switch 1000 mcg IM [id number] 02/01/2023 Active Albuterol Sulfate (Proventil) (2.5 MG/3ML) 0.083% inhalation solution 2.5 mgIndications:COPD, group B, by GOLD 2017 classification ([facility]),Moderate persistent asthma without complication 2.5 mg NEBULIZER PRN 05/16/2023 05/15/2024 Acti ve Albuterol Sulfate (Proventil) (5 MG/ML) 0.5% *conc* inhalation solution 2.5 mgIndications:COPD, group B, by GOLD 2017 classification ([facility]),Moderate persistent asthma without complication 2.5 mg NEBULIZER PRN 05/16/2023 05/15/2024 Acti ve documented as of this encounter (statuses as of 05/08/2024) Active Problems Problem Noted Date Diagnosed Date [...] in the Comments) Remote Patient Monitoring Vendor: [facility] Device(s): Connected Scale Traditional [...] INCISION; Date; 04/06/04 Original Weight; 275 Hospital; [facility] Surgeon; Dustin Smith MD REVISION; OPEN INCISIONRevision of gastrojejunostomy for gastrogastric fistula, distalization of marquita limb with 150 cm common channel Date; 09/25/15 [facility]; [facility] Surgeon; Dustin Smith MD Repair recurrentincisional or ventral hernia, age 5 years or over; reducible06/09/16 Implantation of mesh or other prosthesis for incisional or ventral hernia repair. documented as of this encounter (statuses as of 05/08/2024) Resolved Problems Problem Noted Date Diagnosed Date Resolved Date Asthma 07/02/2023 01/31/2024 Atrial fibrillation 07/02/2023 10/20/19 Fall 02/15/2023 01/31/2024 Last Assessment & Plan: [...] as of this encounter (statuses as of 05/08/2024) Immunizations Name Administration Dates Next Due COVID-19 mRNA, LNP-s, No Pre serve, 2-Dose Series ([employer]) 08/19/2021,01/01/2021,12/11/2020 COVID-19, MRNA-LNP, 23-24, P F, 30 MCG/0.3 mL, 12 YRS AND ABOVE, IM ([employer]-Comirnaty) 08/08/2023 Covid-19 Ad26, Single Dose (GeneAss[employer]/J&J) 01/01/2021,12/11/2020 Covid-19, Mrna, Lnp-s, Pf, B ivalent, 30 Mcg, IM, 12 yrs and above ([employer]) 07/06/2022 Pneumococcal Conjugate Vacc, 13 Valent [...] 11/08/2023 Does the household have a re lar [...] encounter Miscellaneous Notes * Telephone Encounter - Andra Beltran PA-C - 02/10/2024 2:[address] Kimble did not she had stopped her supplements and recently restarted. How long has she been taking these and how long was she not taking them? I suspect the labs show when she was not taking them and not true deficiency despite appropriate supplementation * Telephone Encounter - Shane Mcelroy LPN - 02/09/2024 4:08 PM EDT Spoke with the pt and she stated she is taking the following Daily: Ca Citrate two tabs BID Cacitrol BID Vitamin d3 Daily * Telephone Encounter - Laura Nieves RN - 02/08/2024 10:23 AM EDT I left a message for the patient to return my call. * Telephone Encounter - Olya Kibmle DO - 02/07/2024 4:38 PM EDT david Silverman had stopped a number of her supplements and I advised her at her visit that she needed to be taking them. Would confirm she started back up after her visit last week. * Telephone Encounter - Andra Beltran PA-C - 02/07/2024 4:28 PM EDT Nursing please call patient Can we confirm that she is still taking calcium citrate two tablets three times daily? Calcitrol 2 twice daily Vitamin D3 5,000 Iu daily Her PTH is elevated again However her vitamin D and serum calcium are normal. This may indicate she recently stopped taking the calcium (she has notoriously not been able to remember to take everything and this would be the most likely reason for the increase in PTH again) Primary hyperparathyroidism would be less likely Can we get Dr. White's last note from [facility] endocrinology? (The last note in her chart is from 10/05/23 and could be the latest) FYBrina Kimble documented in this encounter Plan of Treatment Upcoming Encounters Date Type Department Care Team (Late st Contact Info) Description 05/11/2024 9:30 AM EDT Anticoagulation Family Practice 65 [facility] 293 [place] [address] College, Pharmacist [address] [address] 05/11/2024 10:00 AM EDT Office Visit Family Practice [address] [place] [address] [address] [place] [address] Olya Kimble DO 293 [place] [address] 05/18/2024 9:30 AM EDT Office Visit Cardiology, [facility] 132 [facility] [place] [address] Alicia Anand CRNP [address] [place] [address] 05/31/2024 2:30 PM EDT Home Visit [facility]inger at [facility] [address] [place] [address] Bonny Ferrara, RN [facility] [place] [address] 06/19/2024 2:00 PM EDT Nurse Only Ancillary 65 [facility] [address] [place] [address] College, Nurse Annual Wellness Visit [address] [address] 01/03/2025 1:00 PM EDT Office Visit General Surgery, [facility] [address] [facility] [place] [address] Terry Link MD [address] [place], [place] [id number] Scheduled Procedures Name Priority Associated Diagnoses Date/Ti [...] D LEVEL ONCE IN A LIFETIME-USE SMARTSET# [id number] Completed 02/03/2024, 11/15/2023, 06/13/2023, Additional history exists [...] this encounter Medical Devices Implanted Type Area Train Electronic Technician Device Identifier Shelf Expiration Date Model / Serial / Lot [facility] Square 30cm X 30cm - [id number] Implanted:Qty: 1 on 06/09/2016 by Dustin Smith MD at OR [facility] N/A: Abdomen [employer] 03/16/2021 [id number] / / [id number] documented as of this encounter Advance Directives [...] Agents on File Name Relationship Healthcare Agent [facility] Communication Praful Higgins Spouse Health Care Agent Care Teams Podiatrist Relationship Specialty Start Date End Date Olya Kimble DO [address] [place] [address] PCP - General Family Medicine 03/29/24 documented as of this encounter
--- OUTSIDE RECORDS SUMMARY | 2024-07-10 03:43 | External Medical Summary | Summary of Care ---
Author Name Unknown Organization [facility] Address [address] [place] [address] Phone [phone] Care Team Providers Care Sticker Operator Name Role Phone Olya Kimble DO Primary Care Provider [phone] Reason for Visit * Reason Onset Date Comments [facility]: Maintenance 04/26/2024 Encounter Details Date Type Department Care Team (Late st Contact Info) Description 04/26/2024 1:30 PM EDT Scheduled Telephone [facility], [facility] 132 [facility] [place] [address] Coordinator, [facility] 132 [facility] [place] [address] Allergies Active Allergy Reactions Criticality Noted Date Comments Denosumab High 02/22/2023 SEVERE HYPOCALCEMIA documented as of this encounter (statuses as of 04/27/2024) Medications Medication Sig Dispensed Refills Start Date [...] continuous J tube feeds, via feeding pump. 64749 mL 11 07/12/2023 Active Trolamine Salicylate 10 [...] 2.5 MG Oral Tablet (Coumadin)Indication s:Anticoagulation management encounter,FDC current use of anticoagulant therapy,Permanent atrial fibrillation [...] diversion with duodenal switch 1000 mcg IM [id number] 02/01/2023 Active Albuterol Sulfate (Proventil) (2.5 MG/3ML) 0.083% inhalation solution 2.5 mgIndications:COPD, group B, by GOLD 2017 classification ([facility]),Moderate persistent asthma without complication 2.5 mg NEBULIZER PRN 05/16/2023 05/15/2024 Acti ve Albuterol Sulfate (Proventil) (5 MG/ML) 0.5% *conc* inhalation solution 2.5 mgIndications:COPD, group B, by GOLD 2017 classification ([facility]),Moderate persistent asthma without complication 2.5 mg NEBULIZER PRN 05/16/2023 05/15/2024 Acti ve documented as of this encounter (statuses as of 04/27/2024) Active Problems Problem Noted Date Diagnosed Date [...] in the Comments) Remote Patient Monitoring Vendor: [facility] Device(s): Connected Scale Traditional Pulse Ox Self [...] OPEN INCISION; Date; 04/06/04 Original Weight; 275 [facility]; [facility] Surgeon; Dustin Smith MD REVISION; OPEN INCISIONRevision of gastrojejunostomy for gastrogastric fistula, distalization of marquita limb with 150 cm common channel Date; 09/25/15 [facility]; [facility] Surgeon; Dustin Smith MD Repair recurrentincisional or ventral hernia, age 5 years or over; reducible06/09/16 Implantation of mesh or other prosthesis for incisional or ventral hernia repair. documented as of this encounter (statuses as of 04/27/2024) Resolved Problems Problem Noted Date Diagnosed Date [...] as of this encounter (statuses as of 04/27/2024) Immunizations Name Administration Dates Next Due COVID-19 mRNA, LNP-s, No Pre serve, 2-Dose Series (get2play) 08/19/2021,01/01/2021,12/11/2020 COVID-19, MRNA-LNP, 23-24, P F, 30 MCG/0.3 mL, 12 YRS AND ABOVE, IM (No Paper Just Vapor-ComirnatExpand Beyond) 03/14/2024,08/08/2023 Covid-19 Ad26, Single Dose (iRewind/J&CodeStreet) 01/01/2021,12/11/2020 Covid-19, Mrna, Lnp-s, Pf, B ivalent, 30 Mcg, IM, 12 yrs and above (get2play) 07/06/2022 Pneumococcal Conjugate Vacc, 13 Valent (Prevnar) [...] Influenza, Split, I IV3, With Preserve, Inj 06/27/2014,2013,07/01/2009,08/12,08/11/2006,10/26/2004 Seasonal Influenza, Trivalen t, High Dose, No [...] money to get more. Never true 11/08/2023 Sex and Gender Information Value Date [...] Telephone Encounter - Wendi Watkins LPN - 04/27/2024 1:19 PM EDT Noted Will continue to monitor Chelsey LISA Watkins [facility] 04/27/2024,1:19 PM * Telephone Encounter - Serjio Mcbride PA-C - 04/27/2024 11:13 AM EDT [facility] Remote Medical Command Phone Encounter Thank you for your assistance in the care of this patient today. 73 year old year old female patient who presents today with with no chf s/s. Recommendations: Continue current meds Rtc as scheduled This note was prepared with the help of fluency and if there is any mis-spelled words , sentences or something which doesn't represent the content of the subject that could be technical error and please refer to the author for clarification. * Telephone Encounter - Ghislaine Tomas LPN - 04/26/2024 4:07 PM EDT Images from the original note were not included. [facility] Telephonic Nurse Follow-Up Call [facility] Subprogram: Focused Care Management (3-9 months) Follow Up Call Type: 24 hour follow up Acute issue requiring follow-up call: Other: f/u re weight gain Objective: 04/26/2024 10:16 AM 04/24/2024 9:46 AM 04/02/2024 10:03 AM 03/23/2024 10:13 AM 03/23/2024 10:09 AM VITALS ACROSS ENCOUNTERS BP 116/62 104/60 102/60 108/64 112/70 Pulse 97 92 67 85 Weight 49.9 kg 49.7 kg 47.9 kg 50.1 kg BMI 22.91 22.1 BMI 23.01 kg/m2 22.91 kg/m2 22.09 kg/m2 23.07 kg/m2 Subjective: Condition Status: No change in symptoms Current Concerns: Spoke to pt. Reports she feels good. Her legs are skinny. Denies any sob, bloating in belly. Weighttoday is 108.2lb. Confirms she is taking her torsemide 40mg daily. Disposition: [facility] and/or [facility] Care Team for further advice Future Visits Scheduled: Future Appointments-next 60 days Date/Time Provider Specialty Dept Phone 04/30/2024 5:30 PM Bonny Ferrara RN [facility] [phone] 05/07/2024 9:40 AM (Arrive by 9:25 AM) Olya Kimble DO [facility] [phone] 05/08/2024 8:20 AM (Arrive by 8:05 AM) College, Pharmacist [address] [place] [address] 05/18/2024 9:30 AM (Arrive by 9:15 AM) Alicia Anand CRNP Cardiology [phone] 06/19/2024 2:00 PM College, Nurse Annual Wellness Visit 65 [facility] [phone] 01/03/2025 1:00 PM (Arrive by 12:45 PM) Terry Link MD General Surgery [phone] LISA Quiñonez LPN [facility] 04/26/2024 documented in this encounter Plan of Treatment Upcoming Encounters Date Type Department Care Team (Late st Contact Info) Description 04/30/2024 5:30 PM EDT Home Visit [facility], [facility] [address] [place] [address] Bonny Ferrara RN [address] [place] [address] 05/11/2024 9:30 AM EDT Anticoagulation Family Practice 65 [facility] 293 [place] [address] College, Pharmacist [address] [address] 05/11/2024 10:00 AM EDT Office Visit Family Practice 65 [facility] 293 [place] [address] Olya Kimble DO 293 [place] [address] 05/18/2024 9:30 AM EDT Office Visit Cardiology, [facility] 132 [place] [address] Alicia Anand CRNP 132 [place] [address] 06/19/2024 2:00 PM EDT Nurse Only Ancillary [address] [address] College, Nurse Annual Wellness Visit [address] [address] 01/03/2025 1:00 PM EDT Office Visit General Surgery, [facility] 132 [place] [address] Terry Link MD [address] [place] [address] Scheduled Procedures Name Priority Associated Diagnoses Date/Ti [...] D LEVEL ONCE IN A LIFETIME-USE SMARTSET# [id number] Completed 02/03/2024, 11/15/2023, 06/13/2023, Additional history exists [...] this encounter Medical Devices Implanted Type Area Supply Tech Device Identifier Shelf Expiration Date Model / Serial / Lot Silas Square 30cm X 30cm - [id number] Implanted:Qty: 1 on 06/09/2016 by Dustin Smith MD at [place] [facility] N/A: Abdomen [employer] 03/16/2021 [id number] / / [id number] documented as of this encounter Advance Directives [...] Higgins Spouse Health Care Agent Care Teams Sticker Operator Relationship Specialty Start Date End Date Olya Kimble DO 293 [place] [address] PCP - General Family Medicine 03/29/24 documented as of this encounter
--- OUTSIDE RECORDS SUMMARY | 2024-07-10 03:43 | External Medical Summary | Summary of Care ---
Author Name Unknown Organization [facility] Address [address] [place] [address] Phone [phone] Care Team Providers Care Asp Net Mvc Developer Name Role Phone Olya Kimble DO Primary Care Provider [phone] Reason for Visit * Reason Onset Date Comments [facility]: Maintenance 04/26/2024 Encounter Details Date Type Department Care Team (Late st Contact Info) Description 04/26/2024 1:30 PM EDT Scheduled Telephone [facility], [facility] 132 [facility] [place] [address] Coordinator, [facility] 132 [facility] [place] [address] Allergies Active Allergy Reactions Criticality Noted Date [...] continuous J tube feeds, via feeding pump. 29356 mL 11 07/12/2023 Active Trolamine Salicylate 10 [...] 2.5 MG Oral Tablet (Coumadin)Indication s:Anticoagulation management encounter,long-term current use of anticoagulant therapy,Permanent atrial fibrillation [...] diversion with duodenal switch 1000 mcg IM [id number] 02/01/2023 Active Albuterol Sulfate (Proventil) (2.5 MG/3ML) 0.083% inhalation solution 2.5 mgIndications:COPD, group B, by GOLD 2017 classification ([facility]),Moderate persistent asthma without complication 2.5 mg NEBULIZER PRN 05/16/2023 05/15/2024 Acti ve Albuterol Sulfate (Proventil) (5 MG/ML) 0.5% *conc* inhalation solution 2.5 mgIndications:COPD, group B, by GOLD 2017 classification ([facility]),Moderate persistent asthma without complication 2.5 [...] 04/06/04 Original Weight; 275 [facility]; [facility] [place]; Dustin Smith MD REVISION; OPEN INCISIONRevision of gastrojejunostomy for gastrogastric fistula, distalization of marquita limb with 150 cm common channel Date; 09/25/15 [facility]; [facility] Surgeon; Dustin Smith MD Repair recurrentincisional or [...] mRNA, LNP-s, No Pre serve, 2-Dose Series (InterValve) 08/19/2021,01/01/2021,12/11/2020 COVID-19, MRNA-LNP, 23-24, P F, 30 MCG/0.3 mL, 12 YRS AND ABOVE, IM (viblast-ComirnatAriisto) 03/14/2024,08/08/2023 Covid-19 Ad26, Single Dose (X[employer]) 01/01/2021,12/11/2020 Covid-19, Mrna, Lnp-s, Pf, B ivalent, 30 Mcg, IM, 12 yrs and above (InterValve) 07/06/2022 Pneumococcal Conjugate Vacc, 13 Valent (Prevnar) [...] encounter Miscellaneous Notes * Telephone Encounter - Serjio Mcbride PA-C - 04/27/2024 11:13 AM EDT [facility] Remote Medical Command Phone Encounter [...] from the original note were not included. [facility] Telephonic Nurse Follow-Up Call [facility] Subprogram: Focused Care Management (3-9 months) Follow [...] her torsemide 40mg daily. Disposition: Routed to [facility] and/or [facility] Care Team for further advice Future Visits Scheduled: Future Appointments-next 60 days Date/Time Provider Specialty Dept Phone 04/30/2024 5:30 PM Bonny Ferrara, RN [facility] [phone] 05/07/2024 9:40 AM (Arrive by 9:25 AM) Olya Kimble DO Family Medicine [phone] 05/08/2024 8:20 AM (Arrive by 8:05 AM) College, Pharmacist [address] [place] [address] Medicine [phone] 05/18/2024 9:30 AM (Arrive by 9:15 AM) Alicia Anand CRNP Cardiology [phone] 06/19/2024 2:00 PM College, Nurse Annual Wellness Visit [address] [place] [address] 01/03/2025 1:00 PM (Arrive by 12:45 PM) Terry Link MD General Surgery [phone] LISA Quiñonez LPN [facility] 04/26/2024 documented in this encounter Plan of Treatment Upcoming Encounters Date Type Department Care Team (Late st Contact Info) Description 04/30/2024 5:30 PM EDT Home Visit [facility], [facility] [address] [place] [address] Bonny Ferrara RN [address] [place] [address] 05/07/2024 9:40 AM EDT Office Visit Family Practice 65 [facility] 293 [facility], [place] [address] Olya Kimble DO 293 [facility], [place] [address] 05/08/2024 8:20 AM EDT Anticoagulation Family Practice 65 [facility] 293 [place] [address] College, Pharmacist [address] [address] 05/18/2024 9:30 AM EDT Office Visit Cardiology, [facility] 132 [place] [address] Alicia Anand CRNP 132 [place] [address] 06/19/2024 2:00 PM EDT Nurse Only Ancillary 65 [facility] 293 [place] [address] College, Nurse Annual Wellness Visit [address] [address] 01/03/2025 1:00 PM EDT Office Visit General Surgery, [facility] 132 [place] [address] Terry Link MD [address] [place] [address] Scheduled Procedures Name Priority Associated [...] D LEVEL ONCE IN A LIFETIME-USE SMARTSET# [id number] Completed 02/03/2024, 11/15/2023, 06/13/2023, Additional history exists [...] this encounter Medical Devices Implanted Type Area [employer] Professional Device Identifier Shelf Expiration Date Model / Serial / Lot Vitamesh Square 30cm X 30cm - [id number] Implanted:Qty: 1 on 06/09/2016 by Dustin Smith MD [place] [facility] N/A: Abdomen [employer] 03/16/2021 [id number] / / [id number] documented as of this encounter Advance Directives [...] Agents on File Name Relationship Healthcare Agent Count Includes [facility] Communication Praful Higgins Spouse Health Care Agent Care Teams Asp Net Mvc Developer Relationship Specialty Start Date End Date Olya Kimble DO [address] [place] [id number] PCP - General Family Medicine 03/29/24 documented as of this encounter
--- OUTSIDE RECORDS SUMMARY | 2024-07-10 03:43 | External Medical Summary | Summary of Care ---
Author Name Unknown Organization [facility] Address [address] [facility] [place] [address] Phone [phone] Care Team Providers Care Outside Energy Sales Representatives Name Role Phone Olya Kimble DO Primary Care Provider [phone] Reason for Visit * Reason Onset Date Comments [facility]: Maintenance 04/26/2024 Encounter Details Date Type Department Care Team (Late st Contact Info) Description 04/26/2024 1:30 PM EDT Scheduled Telephone [facility], [facility] 132 [facility] [place] [address] Coordinator, [facility] 132 [facility] [place] [address] Allergies Active Allergy Reactions Criticality Noted Date Comments Denosumab High 02/22/2023 SEVERE HYPOCALCEMIA documented as of this encounter (statuses as of 04/26/2024) Medications Medication Sig Dispensed Refills Start Date [...] continuous J tube feeds, via feeding pump. 66157 mL 11 07/12/2023 Active Trolamine Salicylate 10 [...] diversion with duodenal switch 1000 mcg IM [id number] 02/01/2023 Active Albuterol Sulfate (Proventil) (2.5 MG/3ML) 0.083% inhalation solution 2.5 mgIndications:COPD, group B, by GOLD 2017 classification ([facility]),Moderate persistent asthma without complication 2.5 mg NEBULIZER PRN 05/16/2023 05/15/2024 Acti ve Albuterol Sulfate (Proventil) (5 MG/ML) 0.5% *conc* inhalation solution 2.5 mgIndications:COPD, group B, by GOLD 2017 classification ([facility]),Moderate persistent asthma without complication 2.5 mg NEBULIZER PRN 05/16/2023 05/15/2024 Acti ve documented as of this encounter (statuses as of 04/26/2024) Active Problems Problem Noted Date Diagnosed Date [...] OPEN INCISION; Date; 04/06/04 Original Weight; 275 [facility]; [facility] [place]; Dustin Smith MD REVISION; OPEN INCISIONRevision of gastrojejunostomy for gastrogastric fistula, distalization of marquita limb with 150 cm common channel Date; 09/25/15 [facility]; [facility] Surgeon; Dustin Smith MD Repair recurrentincisional or ventral hernia, age 5 years or over; reducible06/09/16 Implantation of mesh or other prosthesis for incisional or ventral hernia repair. documented as of this encounter (statuses as of 04/26/2024) Resolved Problems Problem Noted Date Diagnosed Date [...] as of this encounter (statuses as of 04/26/2024) Immunizations Name Administration Dates Next Due COVID-19 mRNA, LNP-s, No Pre serve, 2-Dose Series (I.Systems) 08/19/2021,01/01/2021,12/11/2020 COVID-19, MRNA-LNP, 23-24, P F, 30 MCG/0.3 mL, 12 YRS AND ABOVE, IM (Kunerango-ComirnatSix Star Enterprises) 03/14/2024,08/08/2023 Covid-19 Ad26, Single Dose (QoL Meds/J&bVisual) 01/01/2021,12/11/2020 Covid-19, Mrna, Lnp-s, Pf, B ivalent, 30 Mcg, IM, 12 yrs and above (I.Systems) 07/06/2022 Pneumococcal Conjugate Vacc, 13 Valent (Prevnar) [...] shopping? (15 years old or older) No 09/15/20 23 Cognitive Status Response Date of Assessm ent Because of a physical, menta l, or emotional condition, do you have serious difficulty concentrating, remembering, or making decisions? (5 years old or older) No 07/01/2023 documented as of this encounter Miscellaneous Notes * Telephone Encounter - Ghislaine Tomas, LISA - 04/26/2024 4:07 PM EDT Images from the original note were not included. [facility] Telephonic Nurse Follow-Up Call [facility] Subprogram: Focused Care Management (3-9 months) Follow [...] her torsemide 40mg daily. Disposition: Routed to [facility] and/or [facility] Care Team for further advice Future Visits Scheduled: Future Appointments-next 60 days Date/Time Provider Specialty Dept Phone 04/30/2024 5:30 PM Bonny Ferrara RN [facility] [phone] 05/07/2024 9:40 AM (Arrive by 9:25 AM) Olya Kimble DO Family Medicine [phone] 05/08/2024 8:20 AM (Arrive by 8:05 AM) Romel, Pharmacist [address] [place] [address] Family Medicine [phone] 05/18/2024 9:30 AM (Arrive by 9:15 AM) Alicia Anand CRNP Cardiology [phone] 06/19/2024 2:00 PM College, Nurse Annual Wellness Visit 65 [facility] Ancillary [phone] 01/03/2025 1:00 PM (Arrive by 12:45 PM) Terry Link MD General Surgery [phone] LISA Quiñonez LPN [facility] 04/26/2024 documented in this encounter Plan of Treatment Upcoming Encounters Date Type Department Care Team (Late st Contact Info) Description 04/30/2024 5:30 PM EDT [facility] Visit [facility], [facility] 132 [facility] [place] [address] Bonny Ferrara RN 132 [facility] [address] 05/07/2024 9:40 AM EDT Office Visit Family Practice [address] [place] [address] 293 [place] [address] Olya Kimble DO 293 [facility] [address] 05/08/2024 8:20 AM EDT Anticoagulation Family Practice [address] [place] [address] 293 [place] [address] College, Pharmacist 65 [facility] 293 [facility] [place] [address] 05/18/2024 9:30 AM EDT Office Visit Cardiology, [facility] 132 [facility] [place] [address] Alicia Anand CRNP 132 [facility] [place] [address] 06/19/2024 2:00 PM EDT Nurse Only Ancillary 65 [facility] 293 [place] [address] College, Nurse Annual Wellness Visit 65 [facility] 293 [place] [address] 01/03/2025 1:00 PM EDT Office Visit General Surgery, [facility] [address] [facility] [place] [address] Terry Link MD [address] [place] [address] Scheduled Procedures Name Priority Associated [...] 03/29/2025 03/29/2024, 0512/2023, 02/03/2024, Additional history exists Colonoscopy 11/13/2026 11/13/2021, [...] D LEVEL ONCE IN A LIFETIME-USE SMARTSET# [id number] Completed 02/03/2024, 11/15/2023, 06/13/2023, Additional history exists [...] this encounter Medical Devices Implanted Type Area Control Room Agent Device Identifier Shelf Expiration Date Model / Serial / Lot Vitamesh Square 30cm X 30cm - [id number] Implanted:Qty: 1 on 06/09/2016 by Dustin Smith MD at [facility] N/A: Abdomen [employer] 03/16/2021 [id number] / / [id number] documented as of this encounter Advance Directives [...] Higgins Spouse Health Care Agent Care Teams Outside Energy Sales Representatives Relationship Specialty Start Date End Date Olya Kimble DO [address] [place] [address] PCP - General Family Medicine 03/29/24 documented as of this encounter
--- OUTSIDE RECORDS SUMMARY | 2024-07-10 03:44 | External Medical Summary | Summary of Care ---
Author Name Unknown Organization [facility] Address [address] [place] [address] Phone [phone] Care Team Providers Care Gopherman Name Role Phone VinnyessieOlya richardson Primary Care Provider [phone] Reason for Visit * Reason Comments Follow Up Rygb 04/06/2004, REVI LAMONT IN 09/25/2015, HERNIA- 2016 AND LAP JEJUNAL PLACEMENT 07/01/2023- CHECK STATUS TODAY Encounter Details Date Type Department Care Team (Late st Contact Info) Description 04/26/2024 10:45 AM EDT Office Visit General Surgery, [facility] [address] [place] [address] Terry Link MD [address] [place] [address] Inflammation at gastrostomy tube site (HCC)*; Moderate malnutrition (HCC); History of gastric bypass Allergies Active Allergy Reactions Criticality Noted Date [...] continuous J tube feeds, via feeding pump. 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 [...] disease with chronic diastolic congestive heart failure ([facility]) Provide one blood pressure monitor with standard size arm cuff 1 Each 04/02/2024 Active Hospital, Clinic, or Other Facility Administered Medication Ordered Dose Route Frequency Start Date End Date Status vitamin b-12 (Cyanocobalamin) inj 1,000 mcgIndications:S/P biliopancreatic diversion with duodenal switch 1000 mcg IM [id number] 02/01/2023 Active Albuterol Sulfate (Proventil) (2.5 MG/3ML) 0.083% inhalation solution 2.5 mgIndications:COPD, group B, by GOLD 2017 classification ([facility]),Moderate persistent asthma without complication 2.5 mg [...] the Comments) Remote Patient Monitoring Vendor: [facility] [place] Device(s): Connected Scale [...] INCISION; Date; 04/06/04 Original Weight; [facility]; [facility] Surgeon; Dustin Smith MD REVISION; OPEN INCISIONRevision of gastrojejunostomy for gastrogastric fistula, distalization of marquita limb with 150 cm common channel Date; 09/25/15 [facility]; [facility] Surgeon; Dustin Smith MD Repair recurrentincisional or [...] mRNA, LNP-s, No Pre serve, 2-Dose Series ([employer]) 08/19/2021,01/01/2021,12/11/2020 COVID-19, MRNA-LNP, 23-24, P F, 30 MCG/0.3 mL, 12 YRS AND ABOVE, IM ([email or web address]) 03/14/2024,08/08/2023 Covid-19 Ad26, Single Dose ([employer]) 01/01/2021,12/11/2020 Covid-19, Mrna, Lnp-s, Pf, B ivalent, 30 Mcg, IM, 12 yrs and above ([employer]) 07/06/2022 Pneumococcal Conjugate Vacc, 13 Valent (Prevnar) [...] Sign Reading Time Taken Comments Blood Pressure 116/62 04/26/2024 10:16 AM EDT Pulse 97 04/26/2024 10:16 AM EDT Temperature 36.3 C (97.3 F) 04/26/2024 10:16 AM E DT Respiratory Rate - - Oxygen Saturation - - Inhaled Oxygen Concentration - - Weight 49.9 kg (110 lb 1.6 oz) 04/26/2024 10:16 AM EDT Height - - Body Mass Index 23.01 04/24/2024 9:46 AM EDT documented in this [...] as of this encounter Progress Notes * Terry Link MD - 04/26/2024 10:45 AM EDT [facility] Follow up Visit Date: 04/26/2024 Andra Higgins [id number] Age: [age] year old PCP: Olya Kimble DO Referral: Andra Beltran PA-C MIS Surgical History RYGB; OPEN INCISION; Date; 04/06/04 Original Weight; [facility]; [facility] Surgeon; Dustin Smith MD REVISION; OPEN INCISION Revision of gastrojejunostomy for gastrogastric fistula, distalization of marquita limb with 150 cm common channel Date; 09/25/15 [facility]; [facility] Surgeon; Dustin Smith MD Repair recurrent incisional or ventral hernia, age 5 years or over; reducible 06/09/16 Implantation of mesh or other prosthesis for incisional or ventral hernia repair. Laparoscopic Jejunostomy 08/31/22 Laparoscopic Jejunal Feeding Tube Placement 07/01/[address] Link HPI: Follow up after feeding tube placement. She is tolerating a stage 4 diet but in smaller portions. She is also tolerating tube feeds to goal. Patient continues to follow with GI nutrition. Abdominal pain? NO Has NO nausea, NO vomiting recently Bowel movements are regular. Any heartburn or regurgitation: YES: Are you smoking or using tobacco? NO; DIET is presently a Stage 4/ Tube Feeds Lab Results Component Value Date/Time WBC 11.79 (H) 02/03/2024 11:33 AM WBC 6.88 04/14/2020 01:02 PM WBC, URINE - [facility] TOO NUMEROUS TO COUNT 04/21/2004 02:07 PM Lab Results Component Value Date/Time HGB 13.0 02/03/2024 11:33 AM HGB 9.8 (A) 01/25/2022 12:00 AM HGB 9.4 (L) 04/14/2020 01:02 PM Lab Results Component Value Date/Time HCT 41.4 02/03/2024 11:33 AM HCT 29.0 (L) 04/14/2020 01:02 PM No results found for: "PLATELET COUNT" Results for orders placed or performed in visit on 11/15/23 COMPREHENSIVE METABOLIC PANEL Result Value Ref Range BUN 40 (H) 6 - 20 mg/dL Creatinine 1.2 (H) 0.5 - 1.0 mg/dL Estimated Glomerular Filtration Rate 47 (L) >=60 mL/min Sodium 140 135 - 146 mmol/L Potassium 4.5 3.5 - 5.1 mmol/L Chloride 98 98 - 107 mmol/L CO2 27 22 - 32 mmol/L Anion Gap 15 7 - 15 mmol/L Glucose 72 70 - 120 mg/dL Albumin 4.4 3.8 - 5.0 g/dL AST 34 10 - 35 U/L Alkaline Phosphatase 80 35 - 130 U/L Bilirubin, Total 0.4 <=1.2 mg/dL Calcium 9.0 8.4 - 10.2 mg/dL Protein 6.8 6.0 - 8.3 g/dL ALT 34 10 - 35 U/L Current Outpatient Medications Medication Sig Dispense Refill [...] continuous J tube feeds, via feeding pump. 16659 mL 11 Trolamine Salicylate 10 % External [...] mouth in the morning. 45 Tablet 3 Ondansetron HCl 4 MG Oral Tablet Take 1 Tablet by mouth every 8 hours as needed for Nausea. 30 Tablet 0 Omeprazole 20 MG Oral Capsule Delayed Release [...] Weeks Benito Lorenzo DO 1,000 mcg at 04/02/24 1029 Albuterol Sulfate (Proventil) (2.5 MG/3ML) 0.083% inhalation solution 2.5 mg 2.5 mg Nebulizer PRN Rhed, Purnima Janina, FINANCE TEACHER 2.5 mg at 06/14/23 1027 Albuterol Sulfate (Proventil) (5 MG/ML) 0.5% *conc* inhalation solution 2.5 mg 2.5 mg Nebulizer PRNRhed, Purnima Janina, FINANCE TEACHER MVI YES Ca++ YES B12 YES Allergies as of 04/26/2024 - Reviewed 04/26/2024 Allergen Reaction Noted Prolia [denosumab] 02/22/2023 PHYSICAL EXAM: 04/25/2024 BP 116/62 | Pulse 97 | Temp 36.3 C (97.3 F) | Wt 49.9 kg (110 lb 1.6 oz) | LMP 10/03/2006 | BMI 23.01 kg/m | BSA 1.43 m 12/22/2023 BP 126/74 | Pulse 95 | Wt 50.4 kg (111 lb 3.2 oz) | LMP 10/03/2006 | BMI 23.24 kg/m | BSA 1.44 m 09/29/2023 BP 137/80 | Pulse 92 | Temp 36 C (96.8 F) | Wt 51.6 kg (113 lb 12.8 oz) | LMP 10/03/2006 | BMI 23.78 kg/m | BSA 1.45 m 07/12/2023: BP 123/66 | Pulse 99 | Temp 36.5 C (97.7 F) | Ht 1.473 m (4' 10") | Wt 55.6 kg (122 lb 9.6 oz) | BMI 25.62 kg/m | BSA 1.51 m 04/28/2023 BP 121/64 | Pulse 80 | Temp 36.4 C (97.6 F) | Wt 54.5 kg (120 lb 3.2 oz) | LMP 10/03/2006 | BMI 24.48 kg/m | BSA 1.5 m 07/22/22 BP 116/67, pulse 79, temp 35.9 C (96.6 F), weight 44.1 +kg (97 lb 4.8 oz), Body mass index is 20.01 kg/m. General: Alert and appropriate. Well-appearing and in no distress Abdomen: Soft; Nontender; NO Distention; NO Organomegaly; NO Masses; incisions well healed. Lower Extremities: NO Calf tenderness BILATERAL; NO Lower Extremity Swelling BILATERAL Impression: RYGB; OPEN INCISION; Date; 04/06/04 Original Weight; [address]; [facility] Surgeon; Dustin Smith MD REVISION; OPEN INCISION Revision of gastrojejunostomy for gastrogastric fistula, distalization of marquita limb with 150 cm common channel Date; 09/25/15 Hospital; [facility] Surgeon; Dustin Smith MD Repair recurrent incisional or ventral hernia, age 5 years or over; reducible 06/09/16 Implantation of mesh or other prosthesis for incisional or ventral hernia repair. Laparoscopic Jejunostomy 08/31/22 Laparoscopic Jejunal Feeding Tube Placement 07/01/[address] Link Plan: 1) Diet: Stage 4 and Enteral tube feeds 2) Skin excoriation- Recommend keeping skin dry and using binder rather than tape. 3) Continue Omeprazole indefinitely 4) Follow up with nutrition Terry Link MD, FACS, [facility] College Scouting Coordinator [facility] Minimally Invasive/ Bariatric Surgery Fellowship documented in this encounter Nursing Notes * Julia Diallo LPN - 04/26/2024 10:19 AM EDT Patient identified by name and date of . Chief Complaint Patient presents with Follow Up Rygb 04/06/2004, REVISION IN 09/25/2015, HERNIA- 2015 AND LAP JEJUNAL PLACEMENT 07/01/2023- CHECK STATUS TODAY documented in this encounter Plan of Treatment Upcoming Encounters Date Type Department Care Team (Late st Contact Info) Description 04/26/2024 1:30 PM EDT Scheduled Telephone [facility], [facility] [address] [address] Coordinator, [facility] [address] [address] 04/30/2024 5:30 PM EDT Home Visit [facility], [facility] [address] [address] Bonny Ferrara RN [address] [place] [address] 05/07/2024 9:40 AM EDT Office Visit Family Practice [address] [place] [address] [address] [place] [address] Olya Kimble DO [address] [place] [address] 05/08/2024 8:20 AM EDT Anticoagulation Family Practice [address] [place] [address] [address] [place] [address] College, Pharmacist [address] [address] 05/18/2024 9:30 AM EDT Office Visit Cardiology, [facility] [address] [place] [address] Alicia Anand CRNP [address] [place] [address] 06/19/2024 2:00 PM EDT Nurse Only Ancillary [address] [place] [id number] College, Nurse Annual Wellness Visit [address] [place] [address] 01/03/2025 1:00 PM EDT Office Visit [facility], [facility] [address] [facility] [address] Terry Link MD [address] [place] [address] Scheduled Procedures Name Priority Associated [...] 03/28/2023, Additional history exists TSH 03/29/2025 03/29/2024, 0 12/2023, 02/03/2024, Additional history exists Colonoscopy 11/13/2026 [...] D LEVEL ONCE IN A LIFETIME-USE SMARTSET# [id number] Completed 02/03/2024, 11/15/2023, 06/13/2023, Additional history exists [...] this encounter Medical Devices Implanted Type Area Applied Biology Professor Device Identifier Shelf Expiration Date Model / Serial / Lot [place] 30cm X 30cm - [id number] Implanted:Qty: 1 on 06/09/2016 by Dustin Smith MD at OR [facility] N/A: Abdomen [employer] 03/16/2021 [id number] / / [id number] documented as of this encounter Visit Diagnoses Diagnosis Inflammation at gastrostomy tube site (HCC)- Primary Other gastrostomy complication Moderate malnutrition (HCC) Malnutrition of moderate degree History of gastric bypass Bariatric surgery status documented in this encounter Advance Directives * [...] Higgins Spouse Health Care Agent Care Teams Gopherman Relationship Specialty Start Date End Date Olya Kimble DO [address] [place] [address] PCP - General Family Medicine 03/29/24 documented as of this encounter
[2024-07-10] MEDS: LEVOTHYROXINE SODIUM 50 MCG TABLET PO SCH (06:09)
--- NOTE | 2024-07-10 06:35 | Communication Note ---
Date of Service: July 10, 2024 Patient noted to have soft BPs as per RN. SBP 90s. Patient asymptomatic. AP Hypotension IVF Hold home diuretic for now
[2024-07-10] MEDS: SODIUM CHLORIDE 0.9% 1,000 ML IV ONE (06:41)
[2024-07-10] MEDS: DIGOXIN 0.125 MG TAB PO SCH (07:51)
[2024-07-10] MEDS: PANTOprazole 40 MG TAB PO SCH (07:52)
[2024-07-10] MEDS: TOCOPHERYL, DL-ALPHA 400 UNITS 180 MG CAP PO SCH (07:52)
[2024-07-10] MEDS: FERROUS SULFATE 325 MG TAB PO SCH (07:52)
[2024-07-10] MEDS: MAGNESIUM OXIDE 400 MG TAB PO SCH (07:52)
[2024-07-10] MEDS: FLUTICASONE/VILANTEROL 200/25MCG 14 PUFFS/INHALER INH SCH (07:54)
[2024-07-10] MEDS: ZINC SULFATE 220 MG CAPSULE PO SCH (07:54)
[2024-07-10 08:37] LABS: Albumin Globulin Ratio 1.2 (0.9-2); BUN Creatinine Ratio 20.2 (10-20); Bilirubin,Total 0.5 mg/dl (0.2-1.0); Creatinine Clr Calc Pharmacy 36.8 ml/min; Est GFR (African American) 66.4 ml/min; Est GFR (Non-African American) 57.3 ml/min; Globulin 2.5 gm/dl (2.5-4.0); Magnesium 1.9 mg/dl (1.7-2.4); Phosphorus 3.2 mg/dl (2.5-4.9); Potassium 3.6 mmol/L (3.5-5.1); Total Protein 5.5 gm/dl (6.0-8.3)
[2024-07-10 08:42] LABS: Basophils # (auto) 0.03 K/uL (0.00-0.20); Basophils % (auto) 0.3 %; Eosinophils # (auto) 0.42 K/uL (0.00-0.50); Eosinophils % (auto) 4.4 %; Hematocrit (blood only) 31.4 % (37.0-47.0); Hemoglobin 10.2 g/dl (12.0-16.0); Immature Granulocytes # (auto) 0.05 K/uL (0.01-0.20); Immature Granulocytes % (auto) 0.5 %; Lymphocytes # (auto) 1.04 K/uL (1.20-3.40); Lymphocytes % (auto) 10.8 %; Mean Corpuscular Hemoglobin 29.9 pg (25.0-34.0); Mean Corpuscular Hgb Conc 32.5 g/dL (32.0-36.0); Mean Corpuscular Volume 92.1 fL (80.0-100.0); Mean Platelet Volume 9.5 fL (9.4-12.4); Monocytes # (auto) 0.65 K/uL (0.11-0.59); Monocytes % (auto) 6.8 %; Neutrophils # (auto) 7.43 K/uL (1.40-6.50); Neutrophils % (auto) 77.2 %; Platelet Count 258 K/uL (130-400); RDW Coefficient of Variation 14.3 % (11.5-14.5); RDW Standard Deviation 48.5 fL (36.4-46.3); Red Blood Count 3.41 M/uL (4.20-5.40); White Blood Count 9.62 K/ul (4.8-10.8)
[2024-07-10 08:45] LABS: INR 2.4 (0.9-1.1); Prothrombin Time 24.5 Seconds (9.0-12.0)
[2024-07-10] MEDS ORDERED: NON-FORMULARY MEDICATION (Vitamin A 2,400 mcg Capsule) PO SCH (09:00)
[2024-07-10] MEDS ORDERED: NON-FORMULARY MEDICATION (Nutritional Supplements Liquid) feeding tube SCH (09:00)
[2024-07-10] MEDS ORDERED: TORSEMIDE 20 MG TAB PO SCH (09:00)
[2024-07-10] MEDS ORDERED: SPIRONOLACTONE 12.5 MG TAB PO SCH (09:00)
[2024-07-10] MEDS: TUBE FEEDING WATER FLUSH JT SCH (12:08)
[2024-07-10] MEDS: GADOBUTROL 65ML VIAL IV ONE (12:32)
--- NOTE | 2024-07-10 13:14 | Magnetic Resonance Report ---
MR lower leg RT wo/w con HISTORY: 73 years-old Female cellulitis, r/o osteo acute pain and swelling of the right lower leg COMPARISON: CTA with runoff 07/09/2024 TECHNIQUE: Multiplanar multisequence MRI of the right lower leg was obtained with and without IV cont rast. FINDINGS: No abnormal enhancement. There is moderate subcutaneous edema with mild dermal thickening throughout the lower leg. No discrete fluid collections. The imaged tendons appear intact. Mild distal Achilles tendinosis. There is mild generalized symmetric periosteal edema with mild enhancement involving the mid diaphyseal tibia and fibula, likely secondary to venous engorgement/stasis. No osseous erosions i dentified to suggest osteomyelitis. IMPRESSION: 1. Moderate subcutaneous edema throughout the lower leg. Differential considerations include cellulit is, venous stasis or lymphedema. 2. No fluid collections to suggest abscess. 3. No MR evidence of acute osteomyelitis. ACT 112: Negative or not required by law. The above report was generated using voice recognition software. It may contain grammatical, syntax o r spelling errors. Electronically signed by: Roe Bejarano M.D. 07/10/2024 1:13 PM
--- NOTE | 2024-07-10 15:12 | Hospitalist Progress Note ---
Date of Service July 10, 2024 Assessment & Plan (1) Cellulitis of leg, right: Plan: This is a 73yoF with a complex medical history that includes tachybradycardia syndrome status post pacemaker placement 2018, diastolic CHF, bariatric surgery 2003, gastric fistula surgery 2014 with J-tube placement in 2021 with chronic tube feedings, A-fib with RVR on chronic Coumadin, COPD, anemia, depression, hyperlipidemia, GERD, hyperparathyroidism, COPD, pulmonary hypertension, PVD presenting with concern for right lower extremity cellulitis. Patient was sent in from her PCPs office where she presented with 2 days of right lower extremity pain and erythema. Denies any known injury but states the pain for started in her right ankle. States sometimes the right lower extremity changes color. States that she has been having some chills, nausea and vomiting and has not been able to eat by mouth for the past few days. Patient does have a J-tube in place for history of malnutrition for which she takes 4 cans of Peptamen daily. Has a history of gastric bypass surgery. Patient follows with general/Bariatric surgery and GI/nutrition. Cellulitis, right lower extremity Patient with erythema and swelling of the right foot that goes up the leg X-ray of the ankle with just noted soft tissue swelling X-ray of the fibula/fibular area with noted soft tissue swelling Doppler ultrasound of the right lower extremity without DVT MRI of the right lower extremity shows-Showed soft tissue swelling without any evidence of fluid collection and/or osteomyelitis Leukocytosis noted, Lactate elevated, downtrending with fluid Procalcitonin elevated Lyme screen -Negative Blood cultures were not ordered Patient received doses of IV Zosyn and vancomycin in the emergency room, continue with IV Zosyn and daptomycin PAD Arterial Doppler unremarkable except for monophasic waveforms, advising to consider CTA abdomen pelvis with runoff CTA abdomen aorta with runoff-No aneurysm and/or dissection. Noted to have nonspecific thickening of wall of rectum and also lower part of stomach. Atherosclerosis with at least 50% stenosis of the tibioperoneal trunk Will ask for vascular surgery evaluation Plan A-fib with RVR History of tachybradycardia syndrome status post pacemaker placement Diastolic CHF Blood pressure has been trending on the lower side, however unsure if this is patient's baseline at this time Continue home digoxin and metoprolol Continue home torsemide and spironolactone Patient on warfarin for anticoagulation, follow INR INR not drawn at the time of admission, please follow and resume home warfarin as needed INR is 2.4 History of jejunostomy tube placement Malnutrition continue home Peptamen with diet order dietitian consult placed She has been eating and also feeding through the PEG tube to maintain nutritional status continue other home meds as ordered CODE STATUS: Full code per discussion with patient Diet: Heart healthy, patient has a J-tube DVT prophylaxis: On warfarin Dispo: Admit to [facility] with telemetry Admission and Anticipated Discharge Date Admission Date: July 09, 2024 Subjective 07/10/2024 The patient was seen and examined in medical telemetry unit She has been complaining of more pain swelling and redness of the right lower extremity Denies any fever but did have chills Denies any other significant symptoms Review of Systems Review of Systems: All systems reviewed and are unremarkable except as noted below Physical Exam Physical Exam: Lying in bed without any acute distress Constitutional: + ill appearing and + thin Eyes: PERRL, conjunctivae normal, anicteric sclerae ENMT: external ear and nose normal, oropharynx normal Neck: trachea midline, no thyromegaly Respiratory: no respiratory distress Auscultation: lungs clear to auscultation bilaterally Cardiovascular: Rate/Rhythm: regular rate and regular rhythm; not tachycardic Heart Sounds: normal S1 and normal S2; no murmur Extremities: + edema (1+ edema bilaterally more on the right than the left) Gastrointestinal (Abdomen): Inspection/Auscultation: normal bowel sounds; + abdomen abnormal to inspection (Has J-tube in situ) Percussion/Palpation: abdomen soft; abdomen nontender Musculoskeletal: No acute arthritis involving any of the joint.Right lower extremity has minimal swelling with some redness seems to be receding Neurologic: normal touch/pain/proprioception and moves all extremities; no focal motor deficits Lymphatic: no cervical or axillary lymphadenopathy Results & Data Results & Data Vital Signs (Past 12 Hours) Vital Signs Temp Pulse Pulse Resp BP BP Pulse Ox 07/10/24 11:45 36.1 C L 78 16 92/59 L 97 07/10/24 07:54 36.8 C 84 12 96/58 L 96 07/10/24 07:51 83 07/10/24 07:50 36.8 C 83 16 96/58 L 96 07/10/24 07:29 71 07/10/24 03:12 36.7 C 83 18 91/52 L 97 O2 Del Method 07/10/24 11:45 Room Air 07/10/24 07:54 Room Air 07/10/24 07:51 07/10/24 07:50 Room Air 07/10/24 07:29 07/10/24 03:12 Room Air Laboratory Results Short CBC 07/09/24 07/10/24 Range/Units 15:56 07:57 WBC 14.03 H 9.62 (4.8-10.8) K/ul Hgb 13.2 10.2 L D (12.0-16.0) g/dl Hct 38.5 31.4 L (37.0-47.0) % Plt Count 397 258 (130-400) K/uL BMP 07/09/24 07/10/24 15:56 07:57 Sodium 135 L 134 L Potassium 4.4 3.6 Chloride 97 L 101 Carbon Dioxide 26 25 BUN 22 20 Creatinine 1.08 0.99 Glucose 96 78 Calcium 9.2 7.0 L D Liver Function 07/09/24 07/10/24 Range/Units 15:56 07:57 Total Bilirubin 0.8 0.5 (0.2-1.0) mg/dl AST 29 96 H (13-39) U/L ALT 22 74 H (7-52) U/L Alkaline Phosphatase 87 252 H D (34-104) U/L Albumin 4.1 3.0 L (3.4-5.0) gm/dl Medications Administered Current Inpatient Medications Acetaminophen (Acetaminophen 500 Mg Tab) 1,000 mg PO Q8H PRN PRN Reason: mild pain or fever Stop: 08/08/24 21:01 Calcitriol (Calcitriol 0.25 Mcg Capsule) 0.5 mcg PO BID ISHAN Stop: 08/08/24 21:01 Last Admin: 07/10/24 07:53 Dose: 0.5 mcg Calcium/Vitamin D (Calcium 600mg + Vit D 400 Iu Tab) 2 tab PO BID ISHAN Stop: 08/08/24 21:01 Last Admin: 07/10/24 07:53 Dose: 2 tab Digoxin (Digoxin 0.125 Mg Tab) 0.125 mg PO QAM ISHAN Stop: 08/09/24 08:59 Last Admin: 07/10/24 07:51 Dose: 0.125 mg Enteral Nutritional Formula (Peptamen 1.5 Rafa 1,000 Ml Bag) 0 ml JT .See Protocol [facility]; Protocol Stop: 08/09/24 10:44 Ferrous Sulfate (Ferrous Sulfate 325 Mg Tab) 325 mg PO DAILY [facility] Stop: 08/09/24 08:59 Last Admin: 07/10/24 07:52 Dose: 325 mg Fluticasone/Vilanterol (Fluticasone/Vilanterol 200/25mcg 14 Puffs/Inhaler) 1 puffs INH DAILY [facility] Stop: 08/09/24 08:59 Last Admin: 07/10/24 07:54 Dose: 1 puffs Hydromorphone HCl (Hydromorphone Inj 0.5 Mg/0.5 Ml Syr) 0.25 mg IV Q6H PRN PRN Reason: Severe Pain (Scale 7, 8, 9,10) Stop: 07/23/24 21:01 Piperacillin Sod/Tazobactam Sod (Zosyn) 4.5 gm in 100 mls @ 25 mls/hr IV Q8H [facility] Stop: 07/16/24 21:59 Last Admin: 07/10/24 13:40 Dose: 25 mls/hr Daptomycin 275 mg/ Syringe 5.5 mls @ 2.75 mls/min IV Q24H [facility]; Protocol Stop: 07/16/24 22:59 Last Admin: 07/10/24 01:07 Dose: 2.75 mls/min Promethazine HCl (Phenergan) 6.25 mg in 50.25 mls @ 201 mls/hr IV Q6H PRN PRN Reason: Nausea And Vomiting Stop: 08/08/24 22:41 Sodium Chloride (Nss) 1,000 mls @ 80 mls/hr IV .[id number] ONE Stop: 07/10/24 19:02 Last Admin: 07/10/24 06:41 Dose: 80 mls/hr Levothyroxine Sodium (Levothyroxine Sodium 50 Mcg Tablet) 50 mcg PO DAILYBB [facility] Stop: 08/09/24 06:29 Last Admin: 07/10/24 06:09 Dose: 50 mcg Magnesium Oxide (Magnesium Oxide 400 Mg Tab) 400 mg PO QAM [facility] Stop: 08/09/24 08:59 Last Admin: 07/10/24 07:52 Dose: 400 mg Metoprolol Succinate (Metoprolol Succ 25mg Ext Rel Tab) 37.5 mg PO BID [facility] Stop: 08/08/24 21:01 Last Admin: 07/10/24 07:55 Dose: Not Given Montelukast Sodium (Montelukast Sodium 10 Mg Tablet) 10 mg PO HS [facility] Stop: 08/08/24 21:01 Last Admin: 07/09/24 22:12 Dose: 10 mg Oxycodone HCl (Oxycodone Hcl Ir 5 Mg Tab (Immediate Release)) 5 mg PO Q8H PRN PRN Reason: Moderate Pain (Scale 4, 5, 6) Stop: 07/23/24 21:01 Pantoprazole Sodium (Pantoprazole 40 Mg Tab) 40 mg PO QAM [facility] Stop: 08/09/24 08:59 Last Admin: 07/10/24 07:52 Dose: 40 mg Spironolactone (Spironolactone 12.5 Mg Tab) 12.5 mg PO QAM [facility] Stop: 08/09/24 08:59 Sterile Water (Tube Feeding Water Flush) 50 ml JT Q4H [facility] Stop: 08/09/24 10:59 Last Admin: 07/10/24 12:08 Dose: Not Given Torsemide (Torsemide 20 Mg Tab) 40 mg PO QAM [facility] Stop: 08/09/24 08:59 Venlafaxine HCl (Venlafaxine Hcl 50 Mg Tab) 150 mg PO BID [facility] Stop: 08/08/24 21:01 Last Admin: 07/10/24 07:53 Dose: 150 mg Vitamin E (Tocopheryl, Dl-Alpha 400 Units 180 Mg Cap) 180 mg PO DAILY [facility] Stop: 08/09/24 08:59 Last Admin: 07/10/24 07:52 Dose: 180 mg Zinc Sulfate (Zinc Sulfate 220 Mg Capsule) 220 mg PO DAILY [facility] Stop: 08/09/24 08:59 Last Admin: 07/10/24 07:54 Dose: 220 mg
[2024-07-10] MEDS ORDERED: WARFARIN SOD 2.5 MG TAB PO SCH (19:00)
[2024-07-10] MEDS: PEPTAMEN 1.5 CAL 1,000 ML BAG JT SCH (19:44)
[2024-07-10] MEDS: WARFARIN SOD 5 MG TAB PO SCH (20:10)
[2024-07-10] MEDS: ALBUMIN 25% 25 GM/100 ML VIAL IV ONE (20:12)
[2024-07-10] MEDS: ACETAMINOPHEN 500 MG TAB PO PRN (21:20)
--- NOTE | 2024-07-10 21:32 | Communication Note ---
Date of Service: July 10, 2024 Patient SBP 80 to 90s since early a.m. as per RN. Patient asymptomatic. Lactic acid 2.5 AP Hypotension Lactic acidosis Follow lactic acid, IV albumin in place of crystalloid given leg edema Decrease maintenance beta-adria dose Hold home diuretics for now Initiate midodrine if with persistent hypotension
[2024-07-10] MEDS: MIDODRINE HCL 2.5 MG TAB PO STA (22:03)
[2024-07-11 06:52] LABS: INR 3.4 (0.9-1.1); Prothrombin Time 32.7 Seconds (9.0-12.0)
[2024-07-11] MEDS: MIDODRINE HCL 2.5 MG TAB PO SCH (09:54)
[2024-07-11] MEDS: METOPROLOL SUCC 25MG EXT REL TAB PO SCH (09:54)
--- NOTE | 2024-07-11 14:24 | Hospitalist Progress Note ---
Date of Service July 11, 2024 Assessment & Plan (1) Cellulitis of leg, right: Plan: This is a 73yoF with a complex medical history that includes tachybradycardia syndrome status post pacemaker placement 2018, diastolic CHF, bariatric surgery 2003, gastric fistula surgery 2014 with J-tube placement in 2021 with chronic tube feedings, A-fib with RVR on chronic Coumadin, COPD, anemia, depression, hyperlipidemia, GERD, hyperparathyroidism, COPD, pulmonary hypertension, PVD presenting with concern for right lower extremity cellulitis. Patient was sent in from her PCPs office where she presented with 2 days of right lower extremity pain and erythema. Denies any known injury but states the pain for started in her right ankle. States sometimes the right lower extremity changes color. States that she has been having some chills, nausea and vomiting and has not been able to eat by mouth for the past few days. Patient does have a J-tube in place for history of malnutrition for which she takes 4 cans of Peptamen daily. Has a history of gastric bypass surgery. Patient follows with general/Bariatric surgery and GI/nutrition. Cellulitis, right lower extremity Patient with erythema and swelling of the right foot that goes up the leg X-ray of the ankle with just noted soft tissue swelling X-ray of the fibula/fibular area with noted soft tissue swelling Doppler ultrasound of the right lower extremity without DVT MRI of the right lower extremity shows-Showed soft tissue swelling without any evidence of fluid collection and/or osteomyelitis Leukocytosis noted, Lactate elevated, downtrending with fluid Procalcitonin elevated Lyme screen -Negative Blood cultures were not ordered Patient received doses of IV Zosyn and vancomycin in the emergency room, continue with IV Zosyn and daptomycin MRI of the right lower extremity did not show any abscess/fluid collection/osteomyelitis It showed subcutaneous edema consistent with cellulitis Will get a blood culture and continue with current antibiotic Elevate the legs when in bed PAD Arterial Doppler unremarkable except for monophasic waveforms, advising to consider CTA abdomen pelvis with runoff CTA abdomen aorta with runoff-No aneurysm and/or dissection. Noted to have nonspecific thickening of wall of rectum and also lower part of stomach. Atherosclerosis with at least 50% stenosis of the tibioperoneal trunk Will ask for vascular surgery evaluation Plan A-fib with RVR History of tachybradycardia syndrome status post pacemaker placement Diastolic CHF Blood pressure has been trending on the lower side, however unsure if this is patient's baseline at this time Continue home digoxin and metoprolol Continue home torsemide and spironolactone Patient on warfarin for anticoagulation, follow INR INR not drawn at the time of admission, please follow and resume home warfarin as needed INR is 2.4 INR is 3.4 today and hold hospitalit for today History of jejunostomy tube placement Malnutrition continue home Peptamen with diet order dietitian consult placed She has been eating and also feeding through the PEG tube to maintain nutritional status continue other home meds as ordered CODE STATUS: Full code per discussion with patient Diet: Heart healthy, patient has a J-tube DVT prophylaxis: On warfarin Dispo: Admit to [facility] with telemetry Admission and Anticipated Discharge Date Admission Date: July 09, 2024 Subjective 07/10/2024 The patient was seen and examined in medical telemetry unit She has been complaining of more pain swelling and redness of the right lower extremity Denies any fever but did have chills Denies any other significant symptoms 07/11/2024 The patient was seen and examined in medical telemetry unit She has been complaining of more pain in the right lower extremity Has been having diarrhea as well Denies any fever and or chills Review of Systems Review of Systems: All systems reviewed and are unremarkable except as noted below Physical Exam Physical Exam: Lying in bed without any acute distress Constitutional: + ill appearing and + thin Eyes: PERRL, conjunctivae normal, anicteric sclerae ENMT: external ear and nose normal, oropharynx normal Neck: trachea midline, no thyromegaly Respiratory: no respiratory distress Auscultation: lungs clear to auscultation bilaterally Cardiovascular: Rate/Rhythm: regular rate and regular rhythm; not tachycardic Heart Sounds: normal S1 and normal S2; no murmur Extremities: + edema (1+ edema bilaterally more on the right than the left) Gastrointestinal (Abdomen): Inspection/Auscultation: normal bowel sounds; + abdomen abnormal to inspection (Has J-tube in situ) Percussion/Palpation: abdomen soft; abdomen nontender Musculoskeletal: Right lower extremity is mildly swollen with increased local temperature, mildly red and also painful on palpation Neurologic: normal touch/pain/proprioception and moves all extremities; no focal motor deficits Psychiatric: A+Ox3, euthymic affect Lymphatic: no cervical or axillary lymphadenopathy Results & Data Results & Data Vital Signs (Past 12 Hours) Vital Signs Temp Pulse Pulse Resp BP BP Pulse Ox 07/11/24 11:28 36.7 C 72 18 90/55 L 99 07/11/24 09:54 74 07/11/24 07:53 36.5 C 78 18 94/55 L 95 07/11/24 05:40 77 07/11/24 03:11 36.8 C 67 18 100/65 97 O2 Del Method 07/11/24 11:28 Room Air 07/11/24 09:54 07/11/24 07:53 Room Air 07/11/24 05:40 07/11/24 03:11 Room Air Medications Administered Current Inpatient Medications Acetaminophen (Acetaminophen 500 Mg Tab) 1,000 mg PO Q8H PRN PRN Reason: mild pain or fever Stop: 08/08/24 21:01 Last Admin: 07/10/24 21:20 Dose: 1,000 mg Calcitriol (Calcitriol 0.25 Mcg Capsule) 0.5 mcg PO BID ISHAN Stop: 08/08/24 21:01 Last Admin: 07/11/24 09:54 Dose: 0.5 mcg Calcium/Vitamin D (Calcium 600mg + Vit D 400 Iu Tab) 2 tab PO BID ISHAN Stop: 08/08/24 21:01 Last Admin: 07/11/24 09:54 Dose: 2 tab Digoxin (Digoxin 0.125 Mg Tab) 0.125 mg PO QAM [facility]AN Stop: 08/09/24 08:59 Last Admin: 07/11/24 09:54 Dose: 0.125 mg Enteral Nutritional Formula (Peptamen 1.5 Rafa 1,000 Ml Bag) 0 ml JT .See Protocol ISHAN; Protocol Stop: 08/09/24 10:44 Last Admin: 07/10/24 19:44 Dose: 960 ml Ferrous Sulfate (Ferrous Sulfate 325 Mg Tab) 325 mg PO DAILY [facility] Stop: 08/09/24 08:59 Last Admin: 07/11/24 09:53 Dose: 325 mg Fluticasone/Vilanterol (Fluticasone/Vilanterol 200/25mcg 14 Puffs/Inhaler) 1 puffs INH DAILY [facility] Stop: 08/09/24 08:59 Last Admin: 07/11/24 09:53 Dose: 1 puffs Hydromorphone HCl (Hydromorphone Inj 0.5 Mg/0.5 Ml Syr) 0.25 mg IV Q6H PRN PRN Reason: Severe Pain (Scale 7, 8, 9,10) Stop: 07/23/24 21:01 Piperacillin Sod/Tazobactam Sod (Zosyn) 4.5 gm in 100 mls @ 25 mls/hr IV Q8H [facility] Stop: 07/16/24 21:59 Last Admin: 07/11/24 13:24 Dose: 25 mls/hr Daptomycin 275 mg/ Syringe 5.5 mls @ 2.75 mls/min IV Q24H [facility]; Protocol Stop: 07/16/24 22:59 Last Admin: 07/10/24 22:03 Dose: 2.75 mls/min Promethazine HCl (Phenergan) 6.25 mg in 50.25 mls @ 201 mls/hr IV Q6H PRN PRN Reason: Nausea And Vomiting Stop: 08/08/24 22:41 Levothyroxine Sodium (Levothyroxine Sodium 50 Mcg Tablet) 50 mcg PO DAILYBB [facility] Stop: 08/09/24 06:29 Last Admin: 07/11/24 05:48 Dose: 50 mcg Loperamide HCl (Loperamide Hcl 2 Mg Cap) 2 mg PO Q3H PRN PRN Reason: Diarrhea Stop: 08/10/24 13:38 Magnesium Oxide (Magnesium Oxide 400 Mg Tab) 400 mg PO QAM [facility] Stop: 08/09/24 08:59 Last Admin: 07/11/24 09:54 Dose: 400 mg Metoprolol Succinate (Metoprolol Succ 25mg Ext Rel Tab) 25 mg PO BID [facility] Stop: 08/10/24 08:59 Last Admin: 07/11/24 09:54 Dose: 25 mg Midodrine (Midodrine Hcl 2.5 Mg Tab) 2.5 mg PO TID@0800,1200,1700 [facility] Stop: 08/10/24 07:59 Last Admin: 07/11/24 13:23 Dose: 2.5 mg Montelukast Sodium (Montelukast Sodium 10 Mg Tablet) 10 mg PO HS [facility] Stop: 08/08/24 21:01 Last Admin: 07/10/24 20:16 Dose: 10 mg Oxycodone HCl (Oxycodone Hcl Ir 5 Mg Tab (Immediate Release)) 5 mg PO Q8H PRN PRN Reason: Moderate Pain (Scale 4, 5, 6) Stop: 07/23/24 21:01 Pantoprazole Sodium (Pantoprazole 40 Mg Tab) 40 mg PO QAM [facility] Stop: 08/09/24 08:59 Last Admin: 07/11/24 09:53 Dose: 40 mg Spironolactone (Spironolactone 12.5 Mg Tab) 12.5 mg PO QAM [facility] Stop: 08/09/24 08:59 Sterile Water (Tube Feeding Water Flush) 50 ml JT Q4H [facility] Stop: 08/09/24 10:59 Last Admin: 07/11/24 12:07 Dose: 50 ml Torsemide (Torsemide 20 Mg Tab) 40 mg PO QAM [facility] Stop: 08/09/24 08:59 Venlafaxine HCl (Venlafaxine Hcl 50 Mg Tab) 150 mg PO BID [facility] Stop: 08/08/24 21:01 Last Admin: 07/11/24 09:57 Dose: 150 mg Vitamin E (Tocopheryl, Dl-Alpha 400 Units 180 Mg Cap) 180 mg PO DAILY [facility] Stop: 08/09/24 08:59 Last Admin: 07/11/24 09:54 Dose: 180 mg Warfarin Sodium (Warfarin Sod 7.5 Mg Tab) 7.5 mg PO MoWeFr@1600 [facility] Stop: 08/10/24 15:59 Warfarin Sodium (Warfarin Sod 5 Mg Tab) 5 mg PO SuTuThSa@1600 [facility] Stop: 08/11/24 15:59 Zinc Sulfate (Zinc Sulfate 220 Mg Capsule) 220 mg PO DAILY [facility] Stop: 08/09/24 08:59 Last Admin: 07/11/24 09:53 Dose: 220 mg
[2024-07-11] MEDS: oxyCODONE HCL IR 5 MG TAB (IMMEDIATE RELEASE) PO PRN (15:53)
[2024-07-11] MEDS: WARFARIN SOD 7.5 MG TAB PO SCH (15:53)
[2024-07-11] MEDS: LOPERAMIDE HCL 2 MG CAP PO PRN (15:54)
--- NOTE | 2024-07-12 06:10 | Electrocardiogram Report ---
Test Reason : Blood Pressure : */* mmHG Vent. Rate : 74 BPM Atrial Rate : 178 BPM P-R Int : * ms QRS Dur : 90 ms QT Int : 432 ms P-R-T Axes : * -13 169 degrees QTcB Int : 479 ms Poor data quality, interpretation may be adversely affected Ventricular-paced rhythm Abnormal ECG When compared with ECG of 11-Jan-2023 10:33, Ventricular-paced rhythm is now present Confirmed by Seven Houser ([id number]) on 07/12/2024 6:10:06 AM Referred By: REFERRED SELF Confirmed By: Seven Houser
[2024-07-12 07:10] LABS: INR 3.4 (0.9-1.1); Prothrombin Time 33.4 Seconds (9.0-12.0)
--- NOTE | 2024-07-12 14:26 | Hospitalist Progress Note ---
Date of Service July 12, 2024 Assessment & Plan (1) Cellulitis of leg, right: Plan: This is a 73yoF with a complex medical history that includes tachybradycardia syndrome status post pacemaker placement 2018, diastolic CHF, bariatric surgery 2003, gastric fistula surgery 2014 with J-tube placement in 2021 with chronic tube feedings, A-fib with RVR on chronic Coumadin, COPD, anemia, depression, hyperlipidemia, GERD, hyperparathyroidism, COPD, pulmonary hypertension, PVD presenting with concern for right lower extremity cellulitis. Patient was sent in from her PCPs office where she presented with 2 days of right lower extremity pain and erythema. Denies any known injury but states the pain for started in her right ankle. States sometimes the right lower extremity changes color. States that she has been having some chills, nausea and vomiting and has not been able to eat by mouth for the past few days. Patient does have a J-tube in place for history of malnutrition for which she takes 4 cans of Peptamen daily. Has a history of gastric bypass surgery. Patient follows with general/Bariatric surgery and GI/nutrition. Cellulitis, right lower extremity Patient with erythema and swelling of the right foot that goes up the leg X-ray of the ankle with just noted soft tissue swelling X-ray of the fibula/fibular area with noted soft tissue swelling Doppler ultrasound of the right lower extremity without DVT MRI of the right lower extremity shows-Showed soft tissue swelling without any evidence of fluid collection and/or osteomyelitis Leukocytosis noted, Lactate elevated, downtrending with fluid Procalcitonin elevated Lyme screen -Negative Blood cultures were not ordered Patient received doses of IV Zosyn and vancomycin in the emergency room, continue with IV Zosyn and daptomycin MRI of the right lower extremity did not show any abscess/fluid collection/osteomyelitis It showed subcutaneous edema consistent with cellulitis Will get a blood culture and continue with current antibiotic Elevate the legs when in bed Slight improvement of the right leg swelling and cellulitis Persisting pain and tenderness without any evidence of fever and chills Blood cultures have been negative Strongly advised to keep the leg elevated Increase ambulation likely discharge in a day or 2 PAD Arterial Doppler unremarkable except for monophasic waveforms, advising to consider CTA abdomen pelvis with runoff CTA abdomen aorta with runoff-No aneurysm and/or dissection. Noted to have nonspecific thickening of wall of rectum and also lower part of stomach. Atherosclerosis with at least 50% stenosis of the tibioperoneal trunk Will ask for vascular surgery evaluation Plan A-fib with RVR History of tachybradycardia syndrome status post pacemaker placement Diastolic CHF Blood pressure has been trending on the lower side, however unsure if this is patient's baseline at this time Continue home digoxin and metoprolol Continue home torsemide and spironolactone Patient on warfarin for anticoagulation, follow INR INR not drawn at the time of admission, please follow and resume home warfarin as needed INR is 2.4 INR is 3.4 today and hold hospitalit for today History of jejunostomy tube placement Malnutrition continue home Peptamen with diet order dietitian consult placed She has been eating and also feeding through the PEG tube to maintain nutritional status continue other home meds as ordered CODE STATUS: Full code per discussion with patient Diet: Heart healthy, patient has a J-tube DVT prophylaxis: On warfarin Dispo: Admit to [facility] with telemetry Admission and Anticipated Discharge Date Admission Date: July 09, 2024 Subjective 07/10/2024 The patient was seen and examined in medical telemetry unit She has been complaining of more pain swelling and redness of the right lower extremity Denies any fever but did have chills Denies any other significant symptoms 07/11/2024 The patient was seen and examined in medical telemetry unit She has been complaining of more pain in the right lower extremity Has been having diarrhea as well Denies any fever and or chills 07/12/2024 The patient was seen and examined in medical telemetry unit She continues to have pain in the right leg Right leg swelling is persisting and he still has not increasing redness and t enderness No fever and chills and blood cultures have been negative Review of Systems Review of Systems: All systems reviewed and are unremarkable except as noted below Physical Exam Physical Exam: Lying in bed without any acute distress Constitutional: + ill appearing and + thin Eyes: PERRL, conjunctivae normal, anicteric sclerae ENMT: external ear and nose normal, oropharynx normal Neck: trachea midline, no thyromegaly Respiratory: no respiratory distress Auscultation: lungs clear to auscultation bilaterally Cardiovascular: Rate/Rhythm: regular rate and regular rhythm; not tachycardic Heart Sounds: normal S1 and normal S2; no murmur Extremities: + edema (1+ edema bilaterally more on the right than the left) Gastrointestinal (Abdomen): Inspection/Auscultation: normal bowel sounds; + abdomen abnormal to inspection (Has J-tube in situ) Percussion/Palpation: abdomen soft; abdomen nontender Musculoskeletal: Right leg is swollen with increasing local temperature and tenderness no acute arthritis in any of the joint Neurologic: normal touch/pain/proprioception and moves all extremities; no focal motor deficits Psychiatric: A+Ox3, euthymic affect Lymphatic: no cervical or axillary lymphadenopathy Results & Data Results & Data Vital Signs (Past 12 Hours) Vital Signs Temp Pulse Pulse Resp BP BP Pulse Ox 07/12/24 12:58 90 07/12/24 11:08 36.4 C L 85 16 110/70 97 07/12/24 08:20 83 07/12/24 07:20 37.0 C 86 16 97/64 L 97 07/12/24 02:56 36.6 C 71 18 97/57 L 97 O2 Del Method 07/12/24 12:58 07/12/24 11:08 Room Air 07/12/24 08:20 07/12/24 07:20 Room Air 07/12/24 02:56 Room Air Medications Administered Current Inpatient Medications Acetaminophen (Acetaminophen 500 Mg Tab) 1,000 mg PO Q8H PRN PRN Reason: mild pain or fever Stop: 08/08/24 21:01 Last Admin: 07/10/24 21:20 Dose: 1,000 mg Calcitriol (Calcitriol 0.25 Mcg Capsule) 0.5 mcg PO BID [facility] Stop: 08/08/24 21:01 Last Admin: 07/12/24 08:24 Dose: 0.5 mcg Calcium/Vitamin D (Calcium 600mg + Vit D 400 Iu Tab) 2 tab PO BID [facility] Stop: 08/08/24 21:01 Last Admin: 07/12/24 08:23 Dose: 2 tab Digoxin (Digoxin 0.125 Mg Tab) 0.125 mg PO QAM [facility] Stop: 08/09/24 08:59 Last Admin: 07/12/24 08:20 Dose: 0.125 mg Enteral Nutritional Formula (Peptamen 1.5 Rafa 1,000 Ml Bag) 0 ml JT .See Protocol [facility]; Protocol Stop: 08/09/24 10:44 Last Admin: 07/11/24 20:22 Dose: 960 ml Ferrous Sulfate (Ferrous Sulfate 325 Mg Tab) 325 mg PO DAILY [facility] Stop: 08/09/24 08:59 Last Admin: 07/12/24 08:23 Dose: 325 mg Fluticasone/Vilanterol (Fluticasone/Vilanterol 200/25mcg 14 Puffs/Inhaler) 1 puffs INH DAILY [facility] Stop: 08/09/24 08:59 Last Admin: 07/12/24 08:20 Dose: 1 puffs Hydromorphone HCl (Hydromorphone Inj 0.5 Mg/0.5 Ml Syr) 0.25 mg IV Q6H PRN PRN Reason: Severe Pain (Scale 7, 8, 9,10) Stop: 07/23/24 21:01 Piperacillin Sod/Tazobactam Sod (Zosyn) 4.5 gm in 100 mls @ 25 mls/hr IV Q8H [facility] Stop: 07/16/24 21:59 Last Admin: 07/12/24 13:31 Dose: 25 mls/hr Daptomycin 275 mg/ Syringe 5.5 mls @ 2.75 mls/min IV Q24H [facility]; Protocol Stop: 07/16/24 22:59 Last Admin: 07/11/24 22:27 Dose: 2.75 mls/min Promethazine HCl (Phenergan) 6.25 mg in 50.25 mls @ 201 mls/hr IV Q6H PRN PRN Reason: Nausea And Vomiting Stop: 08/08/24 22:41 Levothyroxine Sodium (Levothyroxine Sodium 50 Mcg Tablet) 50 mcg PO DAILYBB [facility] Stop: 08/09/24 06:29 Last Admin: 07/12/24 05:16 Dose: 50 mcg Loperamide HCl (Loperamide Hcl 2 Mg Cap) 2 mg PO Q3H PRN PRN Reason: Diarrhea Stop: 08/10/24 13:38 Last Admin: 07/11/24 21:11 Dose: 2 mg Magnesium Oxide (Magnesium Oxide 400 Mg Tab) 400 mg PO QAM [facility] Stop: 08/09/24 08:59 Last Admin: 07/12/24 08:20 Dose: 400 mg Metoprolol Succinate (Metoprolol Succ 25mg Ext Rel Tab) 25 mg PO BID [facility] Stop: 08/10/24 08:59 Last Admin: 07/12/24 08:24 Dose: Not Given Midodrine (Midodrine Hcl 2.5 Mg Tab) 2.5 mg PO TID@0800,1200,1700 [facility] Stop: 08/10/24 07:59 Last Admin: 07/12/24 12:20 Dose: 2.5 mg Montelukast Sodium (Montelukast Sodium 10 Mg Tablet) 10 mg PO HS [facility] Stop: 08/08/24 21:01 Last Admin: 07/11/24 20:25 Dose: 10 mg Oxycodone HCl (Oxycodone Hcl Ir 5 Mg Tab (Immediate Release)) 5 mg PO Q8H PRN PRN Reason: Moderate Pain (Scale 4, 5, 6) Stop: 07/23/24 21:01 Last Admin: 07/12/24 14:02 Dose: 5 mg Pantoprazole Sodium (Pantoprazole 40 Mg Tab) 40 mg PO QAM [facility] Stop: 08/09/24 08:59 Last Admin: 07/12/24 08:20 Dose: 40 mg Spironolactone (Spironolactone 12.5 Mg Tab) 12.5 mg PO QAM [facility] Stop: 08/09/24 08:59 Sterile Water (Tube Feeding Water Flush) 50 ml JT Q4H [facility] Stop: 08/09/24 10:59 Last Admin: 07/12/24 10:30 Dose: Not Given Torsemide (Torsemide 20 Mg Tab) 40 mg PO QAM [facility] Stop: 08/09/24 08:59 Venlafaxine HCl (Venlafaxine Hcl 50 Mg Tab) 150 mg PO BID [facility] Stop: 08/08/24 21:01 Last Admin: 07/12/24 08:23 Dose: 150 mg Vitamin E (Tocopheryl, Dl-Alpha 400 Units 180 Mg Cap) 180 mg PO DAILY [facility] Stop: 08/09/24 08:59 Last Admin: 07/12/24 08:20 Dose: 180 mg Warfarin Sodium (Warfarin Sod 7.5 Mg Tab) 7.5 mg PO MoWeFr@1600 [facility] Stop: 08/10/24 15:59 Last Admin: 07/11/24 15:53 Dose: 7.5 mg Warfarin Sodium (Warfarin Sod 5 Mg Tab) 5 mg PO SuTuThSa@1600 [facility] Stop: 08/11/24 15:59 Zinc Sulfate (Zinc Sulfate 220 Mg Capsule) 220 mg PO DAILY [facility] Stop: 08/09/24 08:59 Last Admin: 07/12/24 08:20 Dose: 220 mg
[2024-07-12] MEDS: WARFARIN SOD 5 MG TAB PO SCH (16:13)
[2024-07-12] MEDS: PROMETHAZINE 6.25 MG/50.25 ML BAG IV PRN (21:41)
[2024-07-12 23:51] LABS: Basophils # (auto) 0.05 K/uL (0.00-0.20); Basophils % (auto) 0.4 %; Eosinophils # (auto) 0.89 K/uL (0.00-0.50); Eosinophils % (auto) 7.9 %; Hematocrit (blood only) 30.4 % (37.0-47.0); Hemoglobin 9.7 g/dl (12.0-16.0); Immature Granulocytes # (auto) 0.05 K/uL (0.01-0.20); Immature Granulocytes % (auto) 0.4 %; Lymphocytes # (auto) 1.33 K/uL (1.20-3.40); Lymphocytes % (auto) 11.8 %; Mean Corpuscular Hemoglobin 29.9 pg (25.0-34.0); Mean Corpuscular Hgb Conc 31.9 g/dL (32.0-36.0); Mean Corpuscular Volume 93.8 fL (80.0-100.0); Mean Platelet Volume 9.8 fL (9.4-12.4); Monocytes # (auto) 0.57 K/uL (0.11-0.59); Neutrophils # (auto) 8.41 K/uL (1.40-6.50); Neutrophils % (auto) 74.5 %; Platelet Count 324 K/uL (130-400); RDW Coefficient of Variation 14.6 % (11.5-14.5); RDW Standard Deviation 51.1 fL (36.4-46.3); Red Blood Count 3.24 M/uL (4.20-5.40)
[2024-07-13 00:11] LABS: Albumin Level 3.4 gm/dl (3.4-5.0); Bilirubin Direct 0.1 mg/dl (0-0.2); Bilirubin,Total 0.4 mg/dl (0.2-1.0); Calcium 8.3 mg/dl (8.6-10.3); Est GFR (African American) 48.7 ml/min; Magnesium 2.6 mg/dl (1.7-2.4); Potassium 4.6 mmol/L (3.5-5.1); Total Protein 6.4 gm/dl (6.0-8.3)
[2024-07-13] MEDS: ALBUMIN 25% 25 GM/100 ML VIAL IV ONE (00:59)
--- NOTE | 2024-07-13 04:22 | CT Scan Report ---
Exam(s): CT ABDOMEN + PELVIS Without Contrast EXAM: CT Abdomen and Pelvis Without Intravenous Contrast CLINICAL HISTORY: Reason for exam: abd pain, coumadin. TECHNIQUE: Axial computed tomography images of the abdomen and pelvis without intravenous contrast. CTDI is 12.55 mGy and DLP is 549.68 mGy-cm. Automated exposure control was utilized for the study. A dose lowering technique was utilized adhering to the principles of ALARA. COMPARISON: CT abdomen and pelvis October 01, 2024 2. FINDINGS: Lung bases: Unremarkable. No mass. No consolidation. Pleural space: Small bilateral pleural effusions. ABDOMEN: Liver: Unremarkable. Gallbladder and bile ducts: Unremarkable. No calcified stones. No ductal dilation. Pancreas: Unremarkable. No ductal dilation. Spleen: Unremarkable. No splenomegaly. Adrenals: Unremarkable. No mass. Kidneys and ureters: Unremarkable. No hydronephrosis, nephrolithiasis, or obstructive uropathy. Stomach and bowel: Liquid stool in the colon, concerning for diarrheal disease. Wall thickening of the distal esophagus which contains ingested contents. Andrew-en-Y gastric bypass. Jejunostomy tube. No bowel obstruction. No free air. PELVIS: Appendix: No findings to suggest acute appendicitis. Bladder: Unremarkable. No stones. Reproductive: Unremarkable as visualized. ABDOMEN and PELVIS: Intraperitoneal space: See above. Bones/joints: Degenerative changes of the spine. No acute fracture. No dislocation. Soft tissues: Unremarkable. Vasculature: Atherosclerotic changes of the aorta. No abdominal aortic aneurysm. Lymph nodes: Unremarkable. No enlarged lymph nodes. IMPRESSION: 1. No hydronephrosis, nephrolithiasis, or obstructive uropathy. 2. Small bilateral pleural effusions. 3. Liquid stool in the colon, concerning for diarrheal disease. 4. Wall thickening of the distal esophagus which contains ingested contents. Andrew-en-Y gastric bypass. Jejunostomy tube. No bowel obstruction. No free air. Electronically signed by: Conrad Arredondo MD 07/13/24 04:21 AM
[2024-07-13] MEDS ORDERED: Nursing to Pharmacy Communication SCH (06:15)
[2024-07-13] MEDS: PANTOprazole 40 MG in SYRINGE 0 ML IV ONE (06:35)
--- NOTE | 2024-07-13 06:47 | XRay Report ---
XR chest 1V portable CLINICAL HISTORY: Shortness of breath. COMPARISON STUDY: Chest CT September 02, 2021. FINDINGS: A left subclavian pacer is in place. There is no pneumothorax. There are small bilateral pl eural effusions with associated bibasilar opacities. The heart is mildly enlarged. Interstitial thick ening is present. IMPRESSION: Interstitial pulmonary edema with small bilateral pleural effusions and associated bibas ilar opacities. ACT 112: Negative or not required by law. Electronically signed by: Salomon Amezcua M.D. 07/13/2024 6:46 AM
[2024-07-13] MEDS: CALCIUM CARBONATE 500 MG CHEWABLE TAB PO PRN (14:54)
--- NOTE | 2024-07-13 15:12 | Hospitalist Progress Note ---
Date of Service July 13, 2024 Assessment & Plan (1) Cellulitis of leg, right: Plan: This is a 73yoF with a complex medical history that includes tachybradycardia syndrome status post pacemaker placement 2018, diastolic CHF, bariatric surgery 2003, gastric fistula surgery 2014 with J-tube placement in 2021 with chronic tube feedings, A-fib with RVR on chronic Coumadin, COPD, anemia, depression, hyperlipidemia, GERD, hyperparathyroidism, COPD, pulmonary hypertension, PVD presenting with concern for right lower extremity cellulitis. Patient was sent in from her PCPs office where she presented with 2 days of right lower extremity pain and erythema. Denies any known injury but states the pain for started in her right ankle. States sometimes the right lower extremity changes color. States that she has been having some chills, nausea and vomiting and has not been able to eat by mouth for the past few days. Patient does have a J-tube in place for history of malnutrition for which she takes 4 cans of Peptamen daily. Has a history of gastric bypass surgery. Patient follows with general/Bariatric surgery and GI/nutrition. Cellulitis, right lower extremity Patient with erythema and swelling of the right foot that goes up the leg X-ray of the ankle with just noted soft tissue swelling X-ray of the fibula/fibular area with noted soft tissue swelling Doppler ultrasound of the right lower extremity without DVT MRI of the right lower extremity shows-Showed soft tissue swelling without any evidence of fluid collection and/or osteomyelitis Leukocytosis noted, Lactate elevated, downtrending with fluid Procalcitonin elevated Lyme screen -Negative Blood cultures were not ordered Patient received doses of IV Zosyn and vancomycin in the emergency room, continue with IV Zosyn and daptomycin MRI of the right lower extremity did not show any abscess/fluid collection/osteomyelitis It showed subcutaneous edema consistent with cellulitis Will get a blood culture and continue with current antibiotic Elevate the legs when in bed Slight improvement of the right leg swelling and cellulitis Persisting pain and tenderness without any evidence of fever and chills Blood cultures have been negative Strongly advised to keep the leg elevated Increase ambulation likely discharge in a day or 2 Right leg is much better today with decreasing swelling, redness and tenderness Will continue IV antibiotic for now likely discharge on Tuesday PAD Arterial Doppler unremarkable except for monophasic waveforms, advising to consider CTA abdomen pelvis with runoff CTA abdomen aorta with runoff-No aneurysm and/or dissection. Noted to have nonspecific thickening of wall of rectum and also lower part of stomach. Atherosclerosis with at least 50% stenosis of the tibioperoneal trunk Will ask for vascular surgery evaluation Plan A-eliezer with RVR History of tachybradycardia syndrome status post pacemaker placement Diastolic CHF Blood pressure has been trending on the lower side, however unsure if this is patient's baseline at this time Continue home digoxin and metoprolol Continue home torsemide and spironolactone Patient on warfarin for anticoagulation, follow INR INR not drawn at the time of admission, please follow and resume home warfarin as needed INR is 2.4 INR is 3.4 today and hold hospitalit for today History of jejunostomy tube placement Malnutrition continue home Peptamen with diet order dietitian consult placed She has been eating and also feeding through the PEG tube to maintain nutritional status Complains to have nausea- PEG tube feeding has been adjusted continue other home meds as ordered CODE STATUS: Full code per discussion with patient Diet: Heart healthy, patient has a J-tube DVT prophylaxis: On warfarin Dispo: Admit to [facility] with telemetry Admission and Anticipated Discharge Date Admission Date: July 09, 2024 Subjective 07/10/2024 The patient was seen and examined in medical telemetry unit She has been complaining of more pain swelling and redness of the right lower extremity Denies any fever but did have chills Denies any other significant symptoms 07/11/2024 The patient was seen and examined in medical telemetry unit She has been complaining of more pain in the right lower extremity Has been having diarrhea as well Denies any fever and or chills 07/12/2024 The patient was seen and examined in medical telemetry unit She continues to have pain in the right leg Right leg swelling is persisting and he still has not increasing redness and tenderness No fever and chills and blood cultures have been negative 07/13/2024 The patient was seen and examined in medical telemetry unit Her pain is better and the leg but she complains to have nausea without vomiting Denies any fever and no chills Review of Systems Review of Systems: All systems reviewed and are unremarkable except as noted below Physical Exam Physical Exam: Lying in bed without any acute distress Constitutional: + ill appearing and + thin Eyes: PERRL, conjunctivae normal, anicteric sclerae ENMT: external ear and nose normal, oropharynx normal Neck: trachea midline, no thyromegaly Respiratory: no respiratory distress Auscultation: lungs clear to auscultation bilaterally Cardiovascular: Rate/Rhythm: regular rate and regular rhythm; not tachycardic Heart Sounds: normal S1 and normal S2; no murmur Extremities: + edema (1+ edema bilaterally more on the right than the left) Gastrointestinal (Abdomen): Inspection/Auscultation: normal bowel sounds; + abdomen abnormal to inspection (Has J-tube in situ) Percussion/Palpation: abdomen soft; abdomen nontender Neurologic: normal touch/pain/proprioception and moves all extremities; no focal motor deficits Psychiatric: A+Ox3, euthymic affect Lymphatic: no cervical or axillary lymphadenopathy Results & Data Results & Data Vital Signs (Past 12 Hours) Vital Signs Temp Pulse Pulse Resp BP Pulse Ox O2 Del Method 07/13/24 11:07 37.1 C 75 16 115/79 96 Room Air 07/13/24 11:02 77 07/13/24 10:36 81 07/13/24 09:31 37.1 C 81 16 105/65 97 Room Air Laboratory Results Short CBC 07/12/24 Range/Units 23:09 WBC 11.30 H (4.8-10.8) K/ul Hgb 9.7 L (12.0-16.0) g/dl Hct 30.4 L (37.0-47.0) % Plt Count 324 (130-400) K/uL BMP 07/12/24 23:09 Sodium 138 Potassium 4.6 Chloride 109 H Carbon Dioxide 23 BUN 9 Creatinine 1.28 H Glucose 81 Calcium 8.3 L Liver Function 07/12/24 Range/Units 23:09 Total Bilirubin 0.4 (0.2-1.0) mg/dl Direct Bilirubin 0.1 (0-0.2) mg/dl AST 20 (13-39) U/L ALT 37 (7-52) U/L Alkaline Phosphatase 167 H (34-104) U/L Albumin 3.4 (3.4-5.0) gm/dl Medications Administered Current Inpatient Medications Acetaminophen (Acetaminophen 500 Mg Tab) 1,000 mg PO Q8H PRN PRN Reason: mild pain or fever Stop: 08/08/24 21:01 Last Admin: 07/13/24 05:22 Dose: 1,000 mg Calcitriol (Calcitriol 0.25 Mcg Capsule) 0.5 mcg PO BID [facility] Stop: 08/08/24 21:01 Last Admin: 07/13/24 08:54 Dose: 0.5 mcg Calcium Carbonate (Calcium Carbonate 500 Mg Chewable Tab) 500 mg PO TID PRN PRN Reason: Indigestion Stop: 08/12/24 14:03 Last Admin: 07/13/24 14:54 Dose: 500 mg Calcium/Vitamin D (Calcium 600mg + Vit D 400 Iu Tab) 2 tab PO BID [facility] Stop: 08/08/24 21:01 Last Admin: 07/13/24 08:58 Dose: 2 tab Digoxin (Digoxin 0.125 Mg Tab) 0.125 mg PO QAM [facility] Stop: 08/09/24 08:59 Last Admin: 07/13/24 11:02 Dose: 0.125 mg Enteral Nutritional Formula (Peptamen 1.5 Rafa 1,000 Ml Bag) 0 ml JT .See Protocol [facility]; Protocol Stop: 08/09/24 10:44 Last Admin: 07/11/24 20:22 Dose: 960 ml Ferrous Sulfate (Ferrous Sulfate 325 Mg Tab) 325 mg PO DAILY [facility] Stop: 08/09/24 08:59 Last Admin: 07/13/24 08:56 Dose: 325 mg Fluticasone/Vilanterol (Fluticasone/Vilanterol 200/25mcg 14 Puffs/Inhaler) 1 puffs INH DAILY [facility] Stop: 08/09/24 08:59 Last Admin: 07/13/24 08:55 Dose: 1 puffs Hydromorphone HCl (Hydromorphone Inj 0.5 Mg/0.5 Ml Syr) 0.25 mg IV Q6H PRN PRN Reason: Severe Pain (Scale 7, 8, 9,10) Stop: 07/23/24 21:01 Piperacillin Sod/Tazobactam Sod (Zosyn) 4.5 gm in 100 mls @ 25 mls/hr IV Q8H [facility] Stop: 07/16/24 21:59 Last Infusion: 07/13/24 13:57 Dose: Infused Daptomycin 275 mg/ Syringe 5.5 mls @ 2.75 mls/min IV Q24H [facility]; Protocol Stop: 07/16/24 22:59 Last Admin: 07/12/24 22:39 Dose: 2.75 mls/min Promethazine HCl (Phenergan) 6.25 mg in 50.25 mls @ 201 mls/hr IV Q6H PRN PRN Reason: Nausea And Vomiting Stop: 08/08/24 22:41 Last Infusion: 07/13/24 11:10 Dose: Infused Levothyroxine Sodium (Levothyroxine Sodium 50 Mcg Tablet) 50 mcg PO DAILYBB [facility] Stop: 08/09/24 06:29 Last Admin: 07/13/24 05:22 Dose: 50 mcg Loperamide HCl (Loperamide Hcl 2 Mg Cap) 2 mg PO Q3H PRN PRN Reason: Diarrhea Stop: 08/10/24 13:38 Last Admin: 07/13/24 08:48 Dose: 2 mg Magnesium Oxide (Magnesium Oxide 400 Mg Tab) 400 mg PO QAM [facility] Stop: 08/09/24 08:59 Last Admin: 07/13/24 09:00 Dose: 400 mg Metoprolol Succinate (Metoprolol Succ 25mg Ext Rel Tab) 25 mg PO BID [facility] Stop: 08/10/24 08:59 Last Admin: 07/13/24 11:03 Dose: 25 mg Midodrine (Midodrine Hcl 2.5 Mg Tab) 2.5 mg PO TID@0800,1200,1700 [facility] Stop: 08/10/24 07:59 Last Admin: 07/13/24 13:59 Dose: 2.5 mg Montelukast Sodium (Montelukast Sodium 10 Mg Tablet) 10 mg PO HS [facility] Stop: 08/08/24 21:01 Last Admin: 07/12/24 23:31 Dose: 10 mg Oxycodone HCl (Oxycodone Hcl Ir 5 Mg Tab (Immediate Release)) 5 mg PO Q8H PRN PRN Reason: Moderate Pain (Scale 4, 5, 6) Stop: 07/23/24 21:01 Last Admin: 07/12/24 14:02 Dose: 5 mg Pantoprazole Sodium (Pantoprazole 40 Mg Tab) 40 mg PO QAM [facility] Stop: 08/13/24 08:59 Spironolactone (Spironolactone 12.5 Mg Tab) 12.5 mg PO QAM [facility] Stop: 08/09/24 08:59 Sterile Water (Tube Feeding Water Flush) 50 ml JT Q4H [facility] Stop: 08/09/24 10:59 Last Admin: 07/13/24 13:58 Dose: Not Given Torsemide (Torsemide 20 Mg Tab) 40 mg PO QAM [facility] Stop: 08/09/24 08:59 Venlafaxine HCl (Venlafaxine Hcl 50 Mg Tab) 150 mg PO BID [facility] Stop: 08/08/24 21:01 Last Admin: 07/13/24 08:57 Dose: 150 mg Vitamin E (Tocopheryl, Dl-Alpha 400 Units 180 Mg Cap) 180 mg PO DAILY [facility] Stop: 08/09/24 08:59 Last Admin: 07/13/24 08:57 Dose: 180 mg Warfarin Sodium (Warfarin Sod 7.5 Mg Tab) 7.5 mg PO [email or web address] [facility] Stop: 08/10/24 15:59 Last Admin: 07/11/24 15:53 Dose: 7.5 mg Warfarin Sodium (Warfarin Sod 5 Mg Tab) 5 mg PO [id number] [facility] Stop: 08/11/24 15:59 Last Admin: 07/12/24 16:13 Dose: 5 mg Zinc Sulfate (Zinc Sulfate 220 Mg Capsule) 220 mg PO DAILY [facility] Stop: 08/09/24 08:59 Last Admin: 07/13/24 08:58 Dose: 220 mg
[2024-07-13] MEDS: FAMOTIDINE 20MG IV PUSH 20 MG/5 ML SYR IV STA (21:00)
[2024-07-14] MEDS: PANTOprazole 40 MG TAB PO SCH (08:06)
--- NOTE | 2024-07-14 15:36 | Hospitalist Progress Note ---
Date of Service July 14, 2024 Assessment & Plan (1) Cellulitis of leg, right: Plan: This is a 73yoF with a complex medical history that includes tachybradycardia syndrome status post pacemaker placement 2018, diastolic CHF, bariatric surgery 2003, gastric fistula surgery 2014 with J-tube placement in 2021 with chronic tube feedings, A-fib with RVR on chronic Coumadin, COPD, anemia, depression, hyperlipidemia, GERD, hyperparathyroidism, COPD, pulmonary hypertension, PVD presenting with concern for right lower extremity cellulitis. Patient was sent in from her PCPs office where she presented with 2 days of right lower extremity pain and erythema. Denies any known injury but states the pain for started in her right ankle. States sometimes the right lower extremity changes color. States that she has been having some chills, nausea and vomiting and has not been able to eat by mouth for the past few days. Patient does have a J-tube in place for history of malnutrition for which she takes 4 cans of Peptamen daily. Has a history of gastric bypass surgery. Patient follows with general/Bariatric surgery and GI/nutrition. Cellulitis, right lower extremity Patient with erythema and swelling of the right foot that goes up the leg X-ray of the ankle with just noted soft tissue swelling X-ray of the fibula/fibular area with noted soft tissue swelling Doppler ultrasound of the right lower extremity without DVT MRI of the right lower extremity shows-Showed soft tissue swelling without any evidence of fluid collection and/or osteomyelitis Leukocytosis noted, Lactate elevated, downtrending with fluid Procalcitonin elevated Lyme screen -Negative Blood cultures were not ordered Patient received doses of IV Zosyn and vancomycin in the emergency room, continue with IV Zosyn and daptomycin MRI of the right lower extremity did not show any abscess/fluid collection/osteomyelitis It showed subcutaneous edema consistent with cellulitis Will get a blood culture and continue with current antibiotic Elevate the legs when in bed Slight improvement of the right leg swelling and cellulitis Persisting pain and tenderness without any evidence of fever and chills Blood cultures have been negative Strongly advised to keep the leg elevated Increase ambulation likely discharge in a day or 2 Right leg is much better today with decreasing swelling, redness and tenderness Will continue IV antibiotic for now likely discharge on Tuesday Right leg is much improved PAD Arterial Doppler unremarkable except for monophasic waveforms, advising to consider CTA abdomen pelvis with runoff CTA abdomen aorta with runoff-No aneurysm and/or dissection. Noted to have nonspecific thickening of wall of rectum and also lower part of stomach. Atherosclerosis with at least 50% stenosis of the tibioperoneal trunk Will ask for vascular surgery evaluation Plan A-fib with RVR History of tachybradycardia syndrome status post pacemaker placement Diastolic CHF Blood pressure has been trending on the lower side, however unsure if this is patient's baseline at this time Continue home digoxin and metoprolol Continue home torsemide and spironolactone Patient on warfarin for anticoagulation, follow INR INR not drawn at the time of admission, please follow and resume home warfarin as needed INR is 2.4 INR is 3.4 today and hold hospitalit for today INR remains therapeutic History of jejunostomy tube placement Malnutrition continue home Peptamen with diet order dietitian consult placed She has been eating and also feeding through the PEG tube to maintain nutritional status Complains to have nausea- PEG tube feeding has been adjusted Denies any more abdominal symptoms and will be discharged home tomorrow continue other home meds as ordered CODE STATUS: Full code per discussion with patient Diet: Heart healthy, patient has a J-tube DVT prophylaxis: On warfarin Dispo: Admit to [facility] with telemetry Admission and Anticipated Discharge Date Admission Date: July 09, 2024 Subjective 07/10/2024 The patient was seen and examined in medical telemetry unit She has been complaining of more pain swelling and redness of the right lower extremity Denies any fever but did have chills Denies any other significant symptoms 07/11/2024 The patient was seen and examined in medical telemetry unit She has been complaining of more pain in the right lower extremity Has been having diarrhea as well Denies any fever and or chills 07/12/2024 The patient was seen and examined in medical telemetry unit She continues to have pain in the right leg Right leg swelling is persisting and he still has not increasing redness and tenderness No fever and chills and blood cultures have been negative 07/13/2024 The patient was seen and examined in medical telemetry unit Her pain is better and the leg but she complains to have nausea without vomiting Denies any fever and no chills 07/14/2024 The patient was seen and examined in medical telemetry unit She has been feeling much better and the leg is better too with decreasing pain Review of Systems Review of Systems: All systems reviewed and are unremarkable except as noted below Physical Exam 2 Physical Exam: Lying in bed without any acute distress Constitutional: + ill appearing and + thin Eyes: PERRL, conjunctivae normal, anicteric sclerae ENMT: external ear and nose normal, oropharynx normal Neck: trachea midline, no thyromegaly Respiratory: no respiratory distress Auscultation: lungs clear to auscultation bilaterally Cardiovascular: Rate/Rhythm: regular rate and regular rhythm; not tachycardic Heart Sounds: normal S1 and normal S2; no murmur Extremities: + edema (1+ edema bilaterally more on the right than the left) Gastrointestinal (Abdomen): Inspection/Auscultation: normal bowel sounds; + abdomen abnormal to inspection (Has J-tube in situ) Percussion/Palpation: abdomen soft; abdomen nontender Neurologic: normal touch/pain/proprioception and moves all extremities; no focal motor deficits Psychiatric: A+Ox3, euthymic affect Lymphatic: no cervical or axillary lymphadenopathy Results & Data Results & Data Vital Signs (Past 12 Hours) Vital Signs Temp Pulse Pulse Resp BP Pulse Ox O2 Del Method 07/14/24 11:48 37.2 C 61 16 114/70 99 Room Air 07/14/24 08:06 66 07/14/24 07:52 37.0 C 64 18 133/70 94 Room Air 07/14/24 05:42 63 Medications Administered Current Inpatient Medications Acetaminophen (Acetaminophen 500 Mg Tab) 1,000 mg PO Q8H PRN PRN Reason: mild pain or fever Stop: 08/08/24 21:01 Last Admin: 07/13/24 05:22 Dose: 1,000 mg Calcitriol (Calcitriol 0.25 Mcg Capsule) 0.5 mcg PO BID [facility] Stop: 08/08/24 21:01 Last Admin: 07/14/24 09:01 Dose: 0.5 mcg Calcium Carbonate (Calcium Carbonate 500 Mg Chewable Tab) 500 mg PO TID PRN PRN Reason: Indigestion Stop: 08/12/24 14:03 Last Admin: 07/13/24 14:54 Dose: 500 mg Calcium/Vitamin D (Calcium 600mg + Vit D 400 Iu Tab) 2 tab PO BID [facility] Stop: 08/08/24 21:01 Last Admin: 07/14/24 08:07 Dose: 2 tab Digoxin (Digoxin 0.125 Mg Tab) 0.125 mg PO QAM [facility] Stop: 08/09/24 08:59 Last Admin: 07/14/24 08:06 Dose: 0.125 mg Enteral Nutritional Formula (Peptamen 1.5 Rafa 1,000 Ml Bag) 0 ml JT .See Protocol [facility]; Protocol Stop: 08/09/24 10:44 Last Admin: 07/11/24 20:22 Dose: 960 ml Ferrous Sulfate (Ferrous Sulfate 325 Mg Tab) 325 mg PO DAILY [facility] Stop: 08/09/24 08:59 Last Admin: 07/14/24 08:06 Dose: 325 mg Fluticasone/Vilanterol (Fluticasone/Vilanterol 200/25mcg 14 Puffs/Inhaler) 1 puffs INH DAILY [facility] Stop: 08/09/24 08:59 Last Admin: 07/14/24 08:10 Dose: 1 puffs Hydromorphone HCl (Hydromorphone Inj 0.5 Mg/0.5 Ml Syr) 0.25 mg IV Q6H PRN PRN Reason: Severe Pain (Scale 7, 8, 9,10) Stop: 07/23/24 21:01 Piperacillin Sod/Tazobactam Sod (Zosyn) 4.5 gm in 100 mls @ 25 mls/hr IV Q8H [facility] Stop: 07/16/24 21:59 Last Infusion: 07/14/24 12:54 Dose: Infused Daptomycin 275 mg/ Syringe 5.5 mls @ 2.75 mls/min IV Q24H [facility]; Protocol Stop: 07/16/24 22:59 Last Admin: 07/13/24 23:01 Dose: 2.75 mls/min Promethazine HCl (Phenergan) 6.25 mg in 50.25 mls @ 201 mls/hr IV Q6H PRN PRN Reason: Nausea And Vomiting Stop: 08/08/24 22:41 Last Infusion: 07/14/24 08:58 Dose: Infused Levothyroxine Sodium (Levothyroxine Sodium 50 Mcg Tablet) 50 mcg PO DAILYBB [facility] Stop: 08/09/24 06:29 Last Admin: 07/14/24 05:28 Dose: 50 mcg Loperamide HCl (Loperamide Hcl 2 Mg Cap) 2 mg PO Q3H PRN PRN Reason: Diarrhea Stop: 08/10/24 13:38 Last Admin: 07/14/24 13:02 Dose: 2 mg Magnesium Oxide (Magnesium Oxide 400 Mg Tab) 400 mg PO QAM [facility] Stop: 08/09/24 08:59 Last Admin: 07/14/24 08:06 Dose: 400 mg Metoprolol Succinate (Metoprolol Succ 25mg Ext Rel Tab) 25 mg PO BID [facility] Stop: 08/10/24 08:59 Last Admin: 07/14/24 08:06 Dose: 25 mg Midodrine (Midodrine Hcl 2.5 Mg Tab) 2.5 mg PO TID@0800,1200,1700 [facility] Stop: 08/10/24 07:59 Last Admin: 07/14/24 13:02 Dose: 2.5 mg Montelukast Sodium (Montelukast Sodium 10 Mg Tablet) 10 mg PO HS [facility] Stop: 08/08/24 21:01 Last Admin: 07/13/24 22:05 Dose: 10 mg Oxycodone HCl (Oxycodone Hcl Ir 5 Mg Tab (Immediate Release)) 5 mg PO Q8H PRN PRN Reason: Moderate Pain (Scale 4, 5, 6) Stop: 07/23/24 21:01 Last Admin: 07/12/24 14:02 Dose: 5 mg Pantoprazole Sodium (Pantoprazole 40 Mg Tab) 40 mg PO QAM [facility] Stop: 08/13/24 08:59 Last Admin: 07/14/24 08:06 Dose: 40 mg Spironolactone (Spironolactone 12.5 Mg Tab) 12.5 mg PO QAM [facility] Stop: 08/09/24 08:59 Sterile Water (Tube Feeding Water Flush) 50 ml JT Q4H [facility] Stop: 08/09/24 10:59 Last Admin: 07/14/24 15:16 Dose: Not Given Torsemide (Torsemide 20 Mg Tab) 40 mg PO QAM [facility] Stop: 08/09/24 08:59 Venlafaxine HCl (Venlafaxine Hcl 50 Mg Tab) 150 mg PO BID [facility] Stop: 08/08/24 21:01 Last Admin: 07/14/24 08:05 Dose: 150 mg Vitamin E (Tocopheryl, Dl-Alpha 400 Units 180 Mg Cap) 180 mg PO DAILY [facility] Stop: 08/09/24 08:59 Last Admin: 07/14/24 08:06 Dose: 180 mg Warfarin Sodium (Warfarin Sod 7.5 Mg Tab) 7.5 mg PO [id number] [facility] Stop: 08/10/24 15:59 Last Admin: 07/13/24 16:24 Dose: 7.5 mg Warfarin Sodium (Warfarin Sod 5 Mg Tab) 5 mg PO [id number] [facility] Stop: 08/11/24 15:59 Last Admin: 07/12/24 16:13 Dose: 5 mg Zinc Sulfate (Zinc Sulfate 220 Mg Capsule) 220 mg PO DAILY [facility] Stop: 08/09/24 08:59 Last Admin: 07/14/24 08:05 Dose: 220 mg
[2024-07-15 08:05] LABS: Prothrombin Time 58.9 Seconds (9.0-12.0)
[2024-07-15 08:36] LABS: INR 6.4 (0.9-1.1)
[2024-07-15] MEDS: AMOXICILLIN/CLAVULANATE 500 MG TAB PO SCH (09:50)
[2024-07-15] MEDS: SODIUM CHLORIDE 0.9% 1,000 ML IV SCH (11:48)
--- NOTE | 2024-07-15 13:49 | Hospitalist Progress Note ---
Date of Service July 15, 2024 Assessment & Plan (1) Cellulitis of leg, right: Plan: This is a 73yoF with a complex medical history that includes tachybradycardia syndrome status post pacemaker placement 2018, diastolic CHF, bariatric surgery 2003, gastric fistula surgery 2014 with J-tube placement in 2021 with chronic tube feedings, A-fib with RVR on chronic Coumadin, COPD, anemia, depression, hyperlipidemia, GERD, hyperparathyroidism, COPD, pulmonary hypertension, PVD presenting with concern for right lower extremity cellulitis. Patient was sent in from her PCPs office where she presented with 2 days of right lower extremity pain and erythema. Denies any known injury but states the pain for started in her right ankle. States sometimes the right lower extremity changes color. States that she has been having some chills, nausea and vomiting and has not been able to eat by mouth for the past few days. Patient does have a J-tube in place for history of malnutrition for which she takes 4 cans of Peptamen daily. Has a history of gastric bypass surgery. Patient follows with general/Bariatric surgery and GI/nutrition. Cellulitis, right lower extremity Patient with erythema and swelling of the right foot that goes up the leg X-ray of the ankle with just noted soft tissue swelling X-ray of the fibula/fibular area with noted soft tissue swelling Doppler ultrasound of the right lower extremity without DVT MRI of the right lower extremity shows-Showed soft tissue swelling without any evidence of fluid collection and/or osteomyelitis Leukocytosis noted, Lactate elevated, downtrending with fluid Procalcitonin elevated Lyme screen -Negative Blood cultures were not ordered Patient received doses of IV Zosyn and vancomycin in the emergency room, continue with IV Zosyn and daptomycin MRI of the right lower extremity did not show any abscess/fluid collection/osteomyelitis It showed subcutaneous edema consistent with cellulitis Will get a blood culture and continue with current antibiotic Elevate the legs when in bed Slight improvement of the right leg swelling and cellulitis Persisting pain and tenderness without any evidence of fever and chills Blood cultures have been negative Strongly advised to keep the leg elevated Increase ambulation likely discharge in a day or 2 Right leg is much better today with decreasing swelling, redness and tenderness Will continue IV antibiotic for now likely discharge on Tuesday Right leg is much improved Right leg he is almost back to normal without any symptoms of pain, redness, swelling or tenderness She will be discharged tomorrow PAD Arterial Doppler unremarkable except for monophasic waveforms, advising to consider CTA abdomen pelvis with runoff CTA abdomen aorta with runoff-No aneurysm and/or dissection. Noted to have nonspecific thickening of wall of rectum and also lower part of stomach. Atherosclerosis with at least 50% stenosis of the tibioperoneal trunk Will ask for vascular surgery evaluation Plan A-fib with RVR History of tachybradycardia syndrome status post pacemaker placement Diastolic CHF Blood pressure has been trending on the lower side, however unsure if this is patient's baseline at this time Continue home digoxin and metoprolol Continue home torsemide and spironolactone Patient on warfarin for anticoagulation, follow INR INR not drawn at the time of admission, please follow and resume home warfarin as needed INR is 2.4 INR remains very high at 6.4will hold Coumadin-07/15/24 Will advise coagulation clinic to repeat INR in a few days and restart Coumadin accordinglyINR is 3.4 today and hold hospitalit for today History of jejunostomy tube placement Malnutrition continue home Peptamen with diet order dietitian consult placed She has been eating and also feeding through the PEG tube to maintain nutritional status Complains to have nausea- PEG tube feeding has been adjusted Denies any more abdominal symptoms and will be discharged home tomorrow continue other home meds as ordered CODE STATUS: Full code per discussion with patient Diet: Heart healthy, patient has a J-tube DVT prophylaxis: On warfarin Dispo: Admit to [facility] with telemetry Admission and Anticipated Discharge Date Admission Date: July 09, 2024 Subjective 07/10/2024 The patient was seen and examined in medical telemetry unit She has been complaining of more pain swelling and redness of the right lower extremity Denies any fever but did have chills Denies any other significant symptoms 07/11/2024 The patient was seen and examined in medical telemetry unit She has been complaining of more pain in the right lower extremity Has been having diarrhea as well Denies any fever and or chills 07/12/2024 The patient was seen and examined in medical telemetry unit She continues to have pain in the right leg Right leg swelling is persisting and he still has not increasing redness and tenderness No fever and chills and blood cultures have been negative 07/13/2024 The patient was seen and examined in medical telemetry unit Her pain is better and the leg but she complains to have nausea without vomiting Denies any fever and no chills 07/14/2024 The patient was seen and examined in medical telemetry unit She has been feeling much better and the leg is better too with decreasing pain 07/15/2024 The patient was seen and examined in medical telemetry unit She has been feeling much better Right leg swelling and redness and tenderness have improved Denies any nausea and or vomiting Review of Systems Review of Systems: All systems reviewed and are unremarkable except as noted below Physical Exam Physical Exam: Lying in bed without any acute distress Constitutional: + ill appearing and + thin Eyes: PERRL, conjunctivae normal, anicteric sclerae ENMT: external ear and nose normal, oropharynx normal Neck: trachea midline, no thyromegaly Respiratory: no respiratory distress Auscultation: lungs clear to au scultation bilaterally Cardiovascular: Rate/Rhythm: regular rate and regular rhythm; not tachycardic Heart Sounds: normal S1 and normal S2; no murmur Extremities: + edema (1+ edema bilaterally more on the right than the left) Gastrointestinal (Abdomen): Inspection/Auscultation: normal bowel sounds; + abdomen abnormal to inspection (Has J-tube in situ) Percussion/Palpation: abdomen soft; abdomen nontender Neurologic: normal touch/pain/proprioception and moves all extremities; no focal motor deficits Psychiatric: A+Ox3, euthymic affect Lymphatic: no cervical or axillary lymphadenopathy Results & Data Results & Data Vital Signs (Past 12 Hours) Vital Signs Temp Pulse Pulse Resp BP Pulse Ox O2 Del Method 07/15/24 11:50 36.3 C L 63 17 104/70 99 Room Air 07/15/24 09:51 77 07/15/24 08:29 36.4 C L 86 18 110/68 95 Room Air 07/15/24 07:32 67 07/15/24 04:00 36.5 C 72 18 110/70 97 Room Air Medications Administered Current Inpatient Medications Acetaminophen (Acetaminophen 500 Mg Tab) 1,000 mg PO Q8H PRN PRN Reason: mild pain or fever Stop: 08/08/24 21:01 Last Admin: 07/13/24 05:22 Dose: 1,000 mg Amoxicillin/Clavulanate Potassium (Amoxicillin/Clavulanate 500 Mg Tab) 1 tab PO BIDM [facility]; Protocol Stop: 07/22/24 07:59 Last Admin: 07/15/24 09:50 Dose: 1 tab Calcitriol (Calcitriol 0.25 Mcg Capsule) 0.5 mcg PO BID [facility] Stop: 08/08/24 21:01 Last Admin: 07/15/24 09:51 Dose: 0.5 mcg Calcium Carbonate (Calcium Carbonate 500 Mg Chewable Tab) 500 mg PO TID PRN PRN Reason: Indigestion Stop: 08/12/24 14:03 Last Admin: 07/13/24 14:54 Dose: 500 mg Calcium/Vitamin D (Calcium 600mg + Vit D 400 Iu Tab) 2 tab PO BID [facility] Stop: 08/08/24 21:01 Last Admin: 07/15/24 09:51 Dose: 2 tab Digoxin (Digoxin 0.125 Mg Tab) 0.125 mg PO QAM [facility] Stop: 08/09/24 08:59 Last Admin: 07/15/24 09:51 Dose: 0.125 mg Enteral Nutritional Formula (Peptamen 1.5 Rafa 1,000 Ml Bag) 0 ml JT .See Protocol [facility]; Protocol Stop: 08/09/24 10:44 Last Admin: 07/11/24 20:22 Dose: 960 ml Ferrous Sulfate (Ferrous Sulfate 325 Mg Tab) 325 mg PO DAILY [facility] Stop: 08/09/24 08:59 Last Admin: 07/15/24 09:53 Dose: 325 mg Fluticasone/Vilanterol (Fluticasone/Vilanterol 200/25mcg 14 Puffs/Inhaler) 1 puffs INH DAILY [facility] Stop: 08/09/24 08:59 Last Admin: 07/15/24 09:53 Dose: 1 puffs Hydromorphone HCl (Hydromorphone Inj 0.5 Mg/0.5 Ml Syr) 0.25 mg IV Q6H PRN PRN Reason: Severe Pain (Scale 7, 8, 9,10) Stop: 07/23/24 21:01 Promethazine HCl (Phenergan) 6.25 mg in 50.25 mls @ 201 mls/hr IV Q6H PRN PRN Reason: Nausea And Vomiting Stop: 08/08/24 22:41 Last Infusion: 07/14/24 08:58 Dose: Infused Sodium Chloride (Nss) 1,000 mls @ 80 mls/hr IV .[id number] [facility] Stop: 08/14/24 07:59 Last Admin: 07/15/24 11:48 Dose: 80 mls/hr Levothyroxine Sodium (Levothyroxine Sodium 50 Mcg Tablet) 50 mcg PO DAILYBB [facility] Stop: 08/09/24 06:29 Last Admin: 07/15/24 06:00 Dose: 50 mcg Loperamide HCl (Loperamide Hcl 2 Mg Cap) 2 mg PO Q3H PRN PRN Reason: Diarrhea Stop: 08/10/24 13:38 Last Admin: 07/14/24 13:02 Dose: 2 mg Magnesium Oxide (Magnesium Oxide 400 Mg Tab) 400 mg PO QAM [facility] Stop: 08/09/24 08:59 Last Admin: 07/15/24 09:53 Dose: 400 mg Metoprolol Succinate (Metoprolol Succ 25mg Ext Rel Tab) 25 mg PO BID [facility] Stop: 08/10/24 08:59 Last Admin: 07/15/24 09:53 Dose: 25 mg Midodrine (Midodrine Hcl 2.5 Mg Tab) 2.5 mg PO TID@0800,1200,1700 [facility] Stop: 08/10/24 07:59 Last Admin: 07/15/24 11:49 Dose: 2.5 mg Montelukast Sodium (Montelukast Sodium 10 Mg Tablet) 10 mg PO HS [facility] Stop: 08/08/24 21:01 Last Admin: 07/14/24 20:17 Dose: 10 mg Oxycodone HCl (Oxycodone Hcl Ir 5 Mg Tab (Immediate Release)) 5 mg PO Q8H PRN PRN Reason: Moderate Pain (Scale 4, 5, 6) Stop: 07/23/24 21:01 Last Admin: 07/12/24 14:02 Dose: 5 mg Pantoprazole Sodium (Pantoprazole 40 Mg Tab) 40 mg PO QAM [facility] Stop: 08/13/24 08:59 Last Admin: 07/15/24 09:54 Dose: 40 mg Spironolactone (Spironolactone 12.5 Mg Tab) 12.5 mg PO QAM [facility] Stop: 08/09/24 08:59 Sterile Water (Tube Feeding Water Flush) 50 ml JT Q4H [facility] Stop: 08/09/24 10:59 Last Admin: 07/15/24 11:49 Dose: 50 ml Torsemide (Torsemide 20 Mg Tab) 40 mg PO QAM [facility] Stop: 08/09/24 08:59 Venlafaxine HCl (Venlafaxine Hcl 50 Mg Tab) 150 mg PO BID [facility] Stop: 08/08/24 21:01 Last Admin: 07/15/24 09:54 Dose: 150 mg Vitamin E (Tocopheryl, Dl-Alpha 400 Units 180 Mg Cap) 180 mg PO DAILY [facility] Stop: 08/09/24 08:59 Last Admin: 07/15/24 09:53 Dose: 180 mg Warfarin Sodium (Warfarin Sod 7.5 Mg Tab) 7.5 mg PO [id number] [facility] Stop: 08/10/24 15:59 Last Admin: 07/13/24 16:24 Dose: 7.5 mg Warfarin Sodium (Warfarin Sod 5 Mg Tab) 5 mg PO [email or web address] [facility] Stop: 08/11/24 15:59 Last Admin: 07/15/24 10:08 Dose: Not Given Zinc Sulfate (Zinc Sulfate 220 Mg Capsule) 220 mg PO DAILY [facility] Stop: 08/09/24 08:59 Last Admin: 07/15/24 09:54 Dose: 220 mg
[2024-07-16 06:27] LABS: BUN Creatinine Ratio 6.6 (10-20); Creatinine Clr Calc Pharmacy 34.3 ml/min; Est GFR (African American) 61.2 ml/min; Est GFR (Non-African American) 52.8 ml/min; Potassium 3.8 mmol/L (3.5-5.1)
[2024-07-16 06:38] LABS: Prothrombin Time 60.9 Seconds (9.0-12.0)
[2024-07-16 07:57] LABS: INR 6.6 (0.9-1.1)
[2024-07-17 06:26] LABS: INR 5.2 (0.9-1.1); Prothrombin Time 48.4 Seconds (9.0-12.0)
[2024-07-17 07:50] VITALS: RESP 16; TEMP 97.3; O2SAT 94
--- NOTE | 2024-07-17 11:45 | Hospitalist Progress Note ---
Date of Service July 17, 2024 Assessment & Plan (1) Cellulitis of leg, right: Plan: This is a 73yoF with a complex medical history that includes tachybradycardia syndrome status post pacemaker placement 2018, diastolic CHF, bariatric surgery 2003, gastric fistula surgery 2014 with J-tube placement in 2021 with chronic tube feedings, A-fib with RVR on chronic Coumadin, COPD, anemia, depression, hyperlipidemia, GERD, hyperparathyroidism, COPD, pulmonary hypertension, PVD presenting with concern for right lower extremity cellulitis. Patient was sent in from her PCPs office where she presented with 2 days of right lower extremity pain and erythema. Denies any known injury but states the pain for started in her right ankle. States sometimes the right lower extremity changes color. States that she has been having some chills, nausea and vomiting and has not been able to eat by mouth for the past few days. Patient does have a J-tube in place for history of malnutrition for which she takes 4 cans of Peptamen daily. Has a history of gastric bypass surgery. Patient follows with general/Bariatric surgery and GI/nutrition. Cellulitis, right lower extremity Patient with erythema and swelling of the right foot that goes up the leg X-ray of the ankle with just noted soft tissue swelling X-ray of the fibula/fibular area with noted soft tissue swelling Doppler ultrasound of the right lower extremity without DVT MRI of the right lower extremity shows-Showed soft tissue swelling without any evidence of fluid collection and/or osteomyelitis Leukocytosis noted, Lactate elevated, downtrending with fluid Procalcitonin elevated Lyme screen -Negative Blood cultures were not ordered Patient received doses of IV Zosyn and vancomycin in the emergency room, continue with IV Zosyn and daptomycin MRI of the right lower extremity did not show any abscess/fluid collection/osteomyelitis It showed subcutaneous edema consistent with cellulitis Will get a blood culture and continue with current antibiotic Elevate the legs when in bed Slight improvement of the right leg swelling and cellulitis Persisting pain and tenderness without any evidence of fever and chills Blood cultures have been negative Strongly advised to keep the leg elevated Increase ambulation likely discharge in a day or 2 Right leg is much better today with decreasing swelling, redness and tenderness Will continue IV antibiotic for now likely discharge on Tuesday Right leg is much improved Right leg he is almost back to normal without any symptoms of pain, redness, swelling or tenderness Infection in the right lower extremity is totally controlled and having no symptoms in the right leg She will be discharged home this afternoon with oral antibiotic as planned PAD Arterial Doppler unremarkable except for monophasic waveforms, advising to c onsider CTA abdomen pelvis with runoff CTA abdomen aorta with runoff-No aneurysm and/or dissection. Noted to have nonspecific thickening of wall of rectum and also lower part of stomach. Atherosclerosis with at least 50% stenosis of the tibioperoneal trunk Will ask for vascular surgery evaluation Plan A-fib with RVR History of tachybradycardia syndrome status post pacemaker placement Diastolic CHF Blood pressure has been trending on the lower side, however unsure if this is patient's baseline at this time Continue home digoxin and metoprolol Continue home torsemide and spironolactone Patient on warfarin for anticoagulation, follow INR INR not drawn at the time of admission, please follow and resume home warfarin as needed INR is 2.4 INR remains very high at 6.4will hold Coumadin-07/15/24 Will advise coagulation clinic to repeat INR in a few days and restart Coumadin accordinglyINR is 3.4 today and hold hospitalit for today INR is 5.2 today and she will have INR checked on before starting Coumadin She was advised to not to take any more Coumadin until being checked INR on History of jejunostomy tube placement Malnutrition continue home Peptamen with diet order dietitian consult placed She has been eating and also feeding through the PEG tube to maintain nutritional status Complains to have nausea- PEG tube feeding has been adjusted Denies any more abdominal symptoms and will be discharged home tomorrow She will continue her tube feeding as planned continue other home meds as ordered CODE STATUS: Full code per discussion with patient Diet: Heart healthy, patient has a J-tube DVT prophylaxis: On warfarin Dispo: Admit to [facility] with telemetry Admission and Anticipated Discharge Date Admission Date: July 09, 2024 Subjective 07/10/2024 The patient was seen and examined in medical telemetry unit She has been complaining of more pain swelling and redness of the right lower extremity Denies any fever but did have chills Denies any other significant symptoms 07/11/2024 The patient was seen and examined in medical telemetry unit She has been complaining of more pain in the right lower extremity Has been having diarrhea as well Denies any fever and or chills 07/12/2024 The patient was seen and examined in medical telemetry unit She continues to have pain in the right leg Right leg swelling is persisting and he still has not increasing redness and tenderness No fever and chills and blood cultures have been negative 07/13/2024 The patient was seen and examined in medical telemetry unit Her pain is better and the leg but she complains to have nausea without vomiting Denies any fever and no chills 07/14/2024 The patient was seen and examined in medical telemetry unit She has been feeling much better and the leg is better too with decreasing pain 07/15/2024 The patient was seen and examined in medical telemetry unit She has been feeling much better Right leg swelling and redness and tenderness have improved Denies any nausea and or vomiting 07/17/2024 The patient was seen and examined in medical telemetry unit She has been stable without any right leg pain and/or swelling She denies any other significant symptoms She will be discharged home this afternoon Review of Systems Review of Systems: All systems reviewed and are unremarkable except as noted below Physical Exam Physical Exam: Lying in bed without any acute distress Constitutional: + ill appearing and + thin Eyes: PERRL, conjunctivae normal, anicteric sclerae ENMT: external ear and nose normal, oropharynx normal Neck: trachea midline, no thyromegaly Respiratory: no respiratory distress Auscultation: lungs clear to auscultation bilaterally Cardiovascular: Rate/Rhythm: regular rate and regular rhythm; not tachycardic Heart Sounds: normal S1 and normal S2; no murmur Extremities: + edema (1+ edema bilaterally more on the right than the left) Gastrointestinal (Abdomen): Inspection/Auscultation: normal bowel sounds; + abdomen abnormal to inspection (Has J-tube in situ) Percussion/Palpation: abdomen soft; abdomen nontender Neurologic: normal touch/pain/proprioception and moves all extremities; no focal motor deficits Psychiatric: A+Ox3, euthymic affect Lymphatic: no cervical or axillary lymphadenopathy Results & Data Results & Data Vital Signs (Past 12 Hours) Vital Signs Temp Pulse Pulse Resp BP Pulse Ox O2 Del Method 07/17/24 09:50 80 07/17/24 07:49 36.3 C L 79 16 116/63 94 Room Air 07/17/24 03:39 36.7 C 76 18 131/75 96 Room Air Medications Administered Current Inpatient Medications Acetaminophen (Acetaminophen 500 Mg Tab) 1,000 mg PO Q8H PRN PRN Reason: mild pain or fever Stop: 08/08/24 21:01 Last Admin: 07/13/24 05:22 Dose: 1,000 mg Amoxicillin/Clavulanate Potassium (Amoxicillin/Clavulanate 500 Mg Tab) 1 tab PO BIDM [facility]; Protocol Stop: 07/22/24 07:59 Last Admin: 07/17/24 09:51 Dose: 1 tab Calcitriol (Calcitriol 0.25 Mcg Capsule) 0.5 mcg PO BID [facility] Stop: 08/08/24 21:01 Last Admin: 07/17/24 09:49 Dose: 0.5 mcg Calcium Carbonate (Calcium Carbonate 500 Mg Chewable Tab) 500 mg PO TID PRN PRN Reason: Indigestion Stop: 08/12/24 14:03 Last Admin: 07/13/24 14:54 Dose: 500 mg Calcium/Vitamin D (Calcium 600mg + Vit D 400 Iu Tab) 2 tab PO BID [facility] Stop: 08/08/24 21:01 Last Admin: 07/17/24 09:49 Dose: 2 tab Digoxin (Digoxin 0.125 Mg Tab) 0.125 mg PO QAM [facility] Stop: 08/09/24 08:59 Last Admin: 07/17/24 09:50 Dose: 0.125 mg Enteral Nutritional Formula (Peptamen 1.5 Rafa 1,000 Ml Bag) 0 ml JT .See Protocol [facility]; Protocol Stop: 08/09/24 10:44 Last Admin: 07/11/24 20:22 Dose: 960 ml Ferrous Sulfate (Ferrous Sulfate 325 Mg Tab) 325 mg PO DAILY [facility] Stop: 08/09/24 08:59 Last Admin: 07/17/24 09:50 Dose: 325 mg Fluticasone/Vilanterol (Fluticasone/Vilanterol 200/25mcg 14 Puffs/Inhaler) 1 puffs INH DAILY [facility] Stop: 08/09/24 08:59 Last Admin: 07/17/24 09:53 Dose: 1 puffs Hydromorphone HCl (Hydromorphone Inj 0.5 Mg/0.5 Ml Syr) 0.25 mg IV Q6H PRN PRN Reason: Severe Pain (Scale 7, 8, 9,10) Stop: 07/23/24 21:01 Promethazine HCl (Phenergan) 6.25 mg in 50.25 mls @ 201 mls/hr IV Q6H PRN PRN Reason: Nausea And Vomiting Stop: 08/08/24 22:41 Last Infusion: 07/14/24 08:58 Dose: Infused Sodium Chloride (Nss) 1,000 mls @ 80 mls/hr IV .[id number] [facility] Stop: 08/14/24 07:59 Last Admin: 07/17/24 10:01 Dose: 80 mls/hr Levothyroxine Sodium (Levothyroxine Sodium 50 Mcg Tablet) 50 mcg PO DAILYBB [facility] Stop: 08/09/24 06:29 Last Admin: 07/17/24 05:57 Dose: 50 mcg Loperamide HCl (Loperamide Hcl 2 Mg Cap) 2 mg PO Q3H PRN PRN Reason: Diarrhea Stop: 08/10/24 13:38 Last Admin: 07/14/24 13:02 Dose: 2 mg Magnesium Oxide (Magnesium Oxide 400 Mg Tab) 400 mg PO QAM [facility] Stop: 08/09/24 08:59 Last Admin: 07/17/24 09:49 Dose: 400 mg Metoprolol Succinate (Metoprolol Succ 25mg Ext Rel Tab) 25 mg PO BID [facility] Stop: 08/10/24 08:59 Last Admin: 07/17/24 09:50 Dose: 25 mg Midodrine (Midodrine Hcl 2.5 Mg Tab) 2.5 mg PO TID@0800,1200,1700 [facility] Stop: 08/10/24 07:59 Last Admin: 07/17/24 09:51 Dose: 2.5 mg Montelukast Sodium (Montelukast Sodium 10 Mg Tablet) 10 mg PO HS [facility] Stop: 08/08/24 21:01 Last Admin: 07/16/24 19:59 Dose: 10 mg Oxycodone HCl (Oxycodone Hcl Ir 5 Mg Tab (Immediate Release)) 5 mg PO Q8H PRN PRN Reason: Moderate Pain (Scale 4, 5, 6) Stop: 07/23/24 21:01 Last Admin: 07/12/24 14:02 Dose: 5 mg Pantoprazole Sodium (Pantoprazole 40 Mg Tab) 40 mg PO QAM [facility] Stop: 08/13/24 08:59 Last Admin: 07/17/24 09:51 Dose: 40 mg Spironolactone (Spironolactone 12.5 Mg Tab) 12.5 mg PO QAM [facility] Stop: 08/09/24 08:59 Sterile Water (Tube Feeding Water Flush) 50 ml JT Q4H [facility] Stop: 08/09/24 10:59 Last Admin: 07/17/24 05:43 Dose: Not Given Torsemide (Torsemide 20 Mg Tab) 40 mg PO QAM [facility] Stop: 08/09/24 08:59 Venlafaxine HCl (Venlafaxine Hcl 50 Mg Tab) 150 mg PO BID [facility] Stop: 08/08/24 21:01 Last Admin: 07/17/24 09:48 Dose: 150 mg Vitamin E (Tocopheryl, Dl-Alpha 400 Units 180 Mg Cap) 180 mg PO DAILY [facility] Stop: 08/09/24 08:59 Last Admin: 07/17/24 09:54 Dose: 180 mg Warfarin Sodium (Warfarin Sod 7.5 Mg Tab) 7.5 mg PO [id number] [facility] Stop: 08/10/24 15:59 Last Admin: 07/13/24 16:24 Dose: 7.5 mg Warfarin Sodium (Warfarin Sod 5 Mg Tab) 5 mg PO [id number] [facility] Stop: 08/11/24 15:59 Last Admin: 07/15/24 10:08 Dose: Not Given Zinc Sulfate (Zinc Sulfate 220 Mg Capsule) 220 mg PO DAILY [facility] Stop: 08/09/24 08:59 Last Admin: 07/17/24 09:49 Dose: 220 mg
[2024-07-17 15:15] VITALS: BP 125/79; PULSE 79
--- NOTE | 2024-07-17 18:11 | Discharge Summary ---
Date of Service July 17, 2024 Admission HPI Per Admitting Provider This is a 73yoF with a complex medical history that includes tachybradycardia syndrome status post pacemaker placement 2018, diastolic CHF, bariatric surgery 2003, gastric fistula surgery 2014 with J-tube placement originally in 2021 with chronic tube feedings, A-fib with RVR on chronic Coumadin, COPD, anemia, depression, hyperlipidemia, GERD, hyperparathyroidism, COPD, pulmonary hypertension, PVD presenting with concern for right lower extremity cellulitis. Patient was sent in from her PCPs office where she presented with 2 days of right lower extremity pain and erythema. Denies any known injury but states the pain for started in her right ankle. States sometimes the right lower extremity changes color. States that she has been having some chills, nausea and vomiting and has not been able to eat by mouth for the past few days. Patient does have a J-tube in place for history of malnutrition for which she takes 4 cans of Peptamen daily. Has a history of gastric bypass surgery. Patient follows with general/Bariatric surgery and GI nutrition. Admission Exam Per Admitting Provider Physical Exam: General: Alert, oriented. No acute distress, thin, frail Skin: left foot swollen with noted erythema spreading up the right leg Psych: Appropriate mood and affect Neuro: difficulty with movements in the bed HEENT: NC/AT CV: RRR Resp: Breath sounds clear bilaterally, no increased effort of breathing Abdomen: Soft, nontender, J tube present Extremities: eft foot swollen with noted erythema spreading up the right leg, very tender to palpation especially in the right ankle region Principal Diagnosis right lower extremity cellulitis, A-fib with RVR, chronic diastolic CHF, history of jejunostomy tube placement with ongoing tube feeding, peripheral arterial disease Discharge Exam Lying in bed without any acute distress Constitutional + ill appearing and + thin Eyes PERRL, conjunctivae normal, anicteric sclerae ENMT external ear and nose normal, oropharynx normal Neck trachea midline, no thyromegaly Respiratory no respiratory distress Auscultation: lungs clear to auscultation bilaterally Cardiovascular Rate/Rhythm: regular rate and regular rhythm; not tachycardic Heart Sounds: normal S1 and normal S2; no murmur Extremities: + edema (1+ edema bilaterally more on the right than the left) Gastrointestinal (Abdomen) Inspection/Auscultation: normal bowel sounds; + abdomen abnormal to inspection (Has J-tube in situ) Percussion/Palpation: abdomen soft; abdomen nontender Neurologic normal touch/pain/proprioception and moves all extremities; no focal motor deficits Psychiatric A+Ox3, euthymic affect Lymphatic no cervical or axillary lymphadenopathy Discharge Data Allergies Allergy/AdvReac Type Severity Reaction Status Date / Time denosumab [From Prolia] AdvReac Severe Hypocalemia Verified 07/09/24 19:18 Consultations 07/09/24 19:05 ED Decision to Admit Stat Ordered Studies 07/09/24 15:38 US arterial duplex LE RT Stat US venous doppler LE RT Stat 07/09/24 20:16 CTA abd aorta runof w con [CT ang AA runof w inc wo ifdon] Stat 07/10/24 00:00 MR lower leg RT wo/w con Urgent 07/13/24 02:45 CT Abd and Pelvis [CT abd pelvis wo con] Stat Hospital Course (1) Cellulitis of leg, right: This is a 73yoF with a complex medical history that includes tachybradycardia syndrome status post pacemaker placement 2018, diastolic CHF, bariatric surgery 2003, gastric fistula surgery 2014 with J-tube placement in 2021 with chronic tube feedings, A-fib with RVR on chronic Coumadin, COPD, anemia, depression, hyperlipidemia, GERD, hyperparathyroidism, COPD, pulmonary hypertension, PVD presenting with concern for right lower extremity cellulitis. Patient was sent in from her PCPs office where she presented with 2 days of right lower extremity pain and erythema. Denies any known injury but states the pain for started in her right ankle. States sometimes the right lower extremity changes color. States that she has been having some chills, nausea and vomiting and has not been able to eat by mouth for the past few days. Patient does have a J-tube in place for history of malnutrition for which she takes 4 cans of Peptamen daily. Has a history of gastric bypass surgery. Patient follows with general/Bariatric surgery and GI/nutrition. Cellulitis, right lower extremity Patient with erythema and swelling of the right foot that goes up the leg X-ray of the ankle with just noted soft tissue swelling X-ray of the fibula/fibular area with noted soft tissue swelling Doppler ultrasound of the right lower extremity without DVT MRI of the right lower extremity shows-Showed soft tissue swelling without any evidence of fluid collection and/or osteomyelitis Leukocytosis noted, Lactate elevated, downtrending with fluid Procalcitonin elevated Lyme screen -Negative Blood cultures were not ordered Patient received doses of IV Zosyn and vancomycin in the emergency room, continue with IV Zosyn and daptomycin MRI of the right lower extremity did not show any abscess/fluid collection/osteomyelitis It showed subcutaneous edema consistent with cellulitis Will get a blood culture and continue with current antibiotic Elevate the legs when in bed Slight improvement of the right leg swelling and cellulitis Persisting pain and tenderness without any evidence of fever and chills Blood cultures have been negative Strongly advised to keep the leg elevated Increase ambulation likely discharge in a day or 2 Right leg is much better today with decreasing swelling, redness and tenderness Will continue IV antibiotic for now likely discharge on Tuesday Right leg is much improved Right leg he is almost back to normal without any symptoms of pain, redness, swelling or tenderness Infection in the right lower extremity is totally controlled and having no symptoms in the right leg She will be discharged home this afternoon with oral antibiotic as planned PAD Arterial Doppler unremarkable except for monophasic waveforms, advising to consider CTA abdomen pelvis with runoff CTA abdomen aorta with runoff-No aneurysm and/or dissection. Noted to have nonspecific thickening of wall of rectum and also lower part of stomach. Atherosclerosis with at least 50% stenosis of the tibioperoneal trunk Will ask for vascular surgery evaluation Plan A-fib with RVR History of tachybradycardia syndrome status post pacemaker placement Diastolic CHF Blood pressure has been trending on the lower side, however unsure if this is patient's baseline at this time Continue home digoxin and metoprolol Continue home torsemide and spironolactone Patient on warfarin for anticoagulation, follow INR INR not drawn at the time of admission, please follow and resume home warfarin as needed INR is 2.4 INR remains very high at 6.4will hold Coumadin-07/15/24 Will advise coagulation clinic to repeat INR in a few days and restart Coumadin accordinglyINR is 3.4 today and hold hospitalit for today INR is 5.2 today and she will have INR checked on before starting Coumadin She was advised to not to take any more Coumadin until being checked INR on History of jejunostomy tube placement Malnutrition continue home Peptamen with diet order dietitian consult placed She has been eating and also feeding through the PEG tube to maintain nutritional status Complains to have nausea- PEG tube feeding has been adjusted Denies any more abdominal symptoms and will be discharged home tomorrow She will continue her tube feeding as planned continue other home meds as ordered CODE STATUS: Full code per discussion with patient Diet: Heart healthy, patient has a J-tube DVT prophylaxis: On warfarin Dispo: Admit to [facility] with telemetry Total Time Total Time Spent Total Time Spent (In Minutes): 35 minutes Discharge Plan Discharge Items Patient Disposition: Home - Home Health Services Reason For Visit: CELLULITUS Discharge Diagnosis: right lower extremity cellulitis, A-fib with RVR, chronic diastolic CHF, history of jejunostomy tube placement with ongoing tube feeding, peripheral arterial disease Condition on Discharge: Fair Activity: Resume your previous activity Non-emergency contact: Primary Care Provider Call non-emergency contact if: you have any medication questions and your symptoms worsen Follow-up/Referrals: Olya Kimble DO [Primary Care Provider] - (Date & Time 07/19/2024 2:45 PM Provider Nurse [facility] [address] Date & Time 07/19/2024 3:00 PM Provider Olya Kimble DO [address] ) Diet: Heart Healthy Addtl Attending Provider Instructions: Please take precaution to avoid falls Finish the course of antibiotic as planned Do not take your Coumadin until your INR is checked on and Coumadin dose is advised Please keep appointments with the healthcare providers Pending Studies at Discharge: No Stand-Alone Forms: My [facility], Smoking Cessation Medications and DC Order Prescriptions: New midodrine 2.5 mg Tablet 2.5 mg PO TID@0800,1200,1700 Qty: 90 0RF amoxicillin-pot clavulanate 500-125 mg Tablet 1 tab PO BIDM Qty: 4 0RF Continued calcitriol 0.25 mcg capsule 0.5 mcg PO BID Qty: 60 0RF levothyroxine 50 mcg tablet 50 mcg PO DAILY Qty: 90 3RF zoledronic zawe-dwarvyrx-soxrh [Reclast] 5 mg/100 mL piggyback 1 ea IV YEARLY fluticasone propion-salmeterol [Advair Diskus] 250-50 mcg/dose Blister With Device 1 inh INHALATION BID 30 Days Qty: 60 0RF warfarin 2.5 mg Tablet See Rx Instructions .ROUTE .COMPLEX Qty: 30 0RF Rx Instructions: TAKES 5MG ON SUN, TUES, THURS, SAT, THEN 7.5MG MON, WED, FRI PT. SPLITS DOSE BETWEEN MORNING AND EVENING digoxin [Digitek] 125 mcg (0.125 mg) tablet 125 mcg PO QAM 30 Days Qty: 30 0RF magnesium 200 mg tablet 200 mg PO QAM diphenhydramine HCl 12.5 mg tablet,chewable 12.5 mg PO BID PRN (Reason: allergic reaction) Qty: 30 0RF vitamin A 2,400 mcg Capsule 2,400 mcg PO DAILY vitamin E 268 mg (400 unit) Capsule 268 mg PO DAILY vitamin K2 (MK-4) 100 mcg Tablet 1 tab PO DAILY Rx Instructions: pt unsure of dose torsemide 20 mg Tablet 40 mg PO QAM albuterol sulfate 2.5 mg /3 mL (0.083 %) Solution For Nebulization 2.5 mg INHALATION DIRECTED PRN (Reason: Shortness Of Breath Or Wheezing) nutritional supplements Liquid 0 ea feeding tube DAILY Rx Instructions: Administer 4 containers daily, as directed at 40 mL/h continuous J-tube feeds, via feeding pump lidocaine 4 % Cream 1 applic TOPICAL DAILY Rx Instructions: USES ROLL-ON DAILY spironolactone 25 mg tablet 12.5 mg PO QAM cyanocobalamin (vitamin B-12) 1,000 mcg/mL Solution 1,000 mcg IM MONTHLY ferrous sulfate 325 mg (65 mg iron) Tablet 325 mg PO DAILY triamcinolone acetonide 0.1 % ointment 1 applic TOPICAL BID PRN (Reason: AFFECTED AREA) nystatin 100,000 unit/gram Cream 1 applic TOPICAL BID PRN (Reason: Skin Irritation) hydrocortisone 2.5 % Cream 1 applic TOPICAL BID PRN (Reason: Itching) Rx Instructions: MAY USE MORE THAN 2 X DAILY IF NEEDED zinc sulfate 50 mg zinc (220 mg) Capsule 50 mg PO DAILY diclofenac sodium 1 % Gel 2 g TOPICAL BID PRN (Reason: Pain) Women's Daily Formula 18 mg iron-400 mcg-500 mg Tablet 1 tab PO BID ondansetron HCl 4 mg tablet 4 mg PO Q6H PRN (Reason: NAUSEA/VOMITING) acetaminophen [Tylenol Extra Strength] 500 mg tablet 1,000 mg PO TID PRN (Reason: pain) albuterol sulfate [Ventolin HFA] 90 mcg/actuation HFA aerosol inhaler 2 puff INHALATION Q4H PRN (Reason: Shortness Of Breath Or Wheezing) venlafaxine 100 mg tablet 150 mg PO BID Rx Instructions: 1 & 1/2 TABS PO BID omeprazole 20 mg capsule,delayed release(DR/EC) 20 mg PO QAM montelukast 10 mg tablet 10 mg PO HS calcium citrate-vitamin D3 [Calcium Citrate + D] 315 mg-5 mcg (200 unit) Tablet 2 tab PO BID Changed metoprolol succinate 25 mg Tablet Extended Release 24 Hr 25 mg PO BID Qty: 0 0RF Discharge Orders: Discharge Order (Routine); Ordered 07/17/24 Ordered By: Bob Alberts Admission Data Admit Date/Time: 07/09/24 19:24 Attending Provider: Bob Alberts Admit Provider: Nicole Spears Primary Care Provider: Olya Kimble Other Providers: Nicole Spears; [facility]
== END 2024-07-17 16:20 | disposition home health service (06) | DRG 603 ==
LOC: ED 14:41 → EDINP 19:24 → SUATTDRO 19:24 → 2W 21:02